=== PATIENT | female | born 1985 | race Caucasian/White ===

== ENCOUNTER 2025-06-24 17:26 | Inpatient (IN) | payer OTHER, SELFPAY ==
[2025-06-24 17:41] VITALS: BP 172/80; PULSE 85; RESP 18; TEMP 36.3; O2SAT 97; BMI 20.6
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
--- NOTE | 2025-06-24 18:09 | MHC.EDTECH ---
Pt is wearing her own underwear due to menstrual cycle. It was inspected for safety. Pod RN Sissy mcdonald.
[2025-06-24 18:42] LABS: MANUAL DIFF FLAG NO
[2025-06-24 18:44] LABS: Hematocrit 35.6 % (37.0-47.0); Hemoglobin 11.5 g/dl (12.0-16.0); Imm Gran Abs Auto 0.06 X10*3/uL (0.00-0.03); Imm Gran Pct Auto 0.4 % (0.0-0.4); Lymphocytes Absolute Auto 2.7 X10*3/uL (1.2-4.9); Mean Corpuscular HGB Conc 32.3 g/dl (31.0-35.0); Mean Corpuscular Hemoglobin 28.9 pg (27.0-33.0); Mean Corpuscular Volume 89.4 fL (80.0-98.0); NRBC Abs Auto 0.000 X10*3/uL (0.0-0.012); NRBC Pct Auto 0.0 /100WBC (0.0-0.2); Platelet Count 325 X10*3/uL (160-400); Red Blood Count 3.98 X10*6/uL (4.20-5.50); White Blood Count 13.4 X10*3/uL (4.8-10.8)
[2025-06-24 18:45] VITALS: BP 127/77; PULSE 90; RESP 20; TEMP 37.3; O2SAT 100
[2025-06-24 18:59] LABS: Acetaminophen LAB < 3 mcg/mL (<30); Alanine Aminotransferase 28 U/L (0-31); Albumin Level 4.9 g/dL (3.5-5.0); Alkaline Phosphatase 45 U/L (39-117); Anion Gap 14 (12-20); Aspartate Amino Transferase 35 U/L (5-31); Blood Urea Nitrogen 11 mg/dL (9-16); Calcium 9.5 mg/dL (8.4-10.2); Carbon Dioxide 25 mmol/L (22-29); Chloride 103 mmol/L (96-108); Creatinine Clr Calc Pharmacy 68.7; Estimated Glomerular Filt Rate > 60; Potassium 3.5 mmol/L (3.3-5.1); Salicylate < 5.0 mg/dL (15-30); Sodium 138 mmol/L (135-145); Total Protein 7.1 g/dL (6.5-8.0)
[2025-06-24 19:00] LABS: COVID-19 Test Negative (Negative); IDNOW Serial# 55D5AD1C
[2025-06-24 20:10] LABS: Thyroid Stimulating Hormone 1.96 uIU/mL (0.32-4.0)
--- NOTE | 2025-06-25 | ECG_ITS ---
Test Reason : check qtc Blood Pressure : */* mmHG Vent. Rate : 72 BPM Atrial Rate : 72 BPM P-R Int : 154 ms QRS Dur : 82 ms QT Int : 414 ms P-R-T Axes : 81 65 56 degrees QTcB Int : 453 ms Sinus rhythm with marked sinus arrhythmia Otherwise normal ECG No previous ECGs available Referred By: Chase Boyd Electronically Signed By: Uday Pepe
[2025-06-25] MEDS: OLANZapine 10 MG VIAL 2.5 MG IM (00:02)
[2025-06-25 00:40] VITALS: BP 94/56; PULSE 74; RESP 16; TEMP 36.3; O2SAT 98
[2025-06-25 01:10] VITALS: BP 93/60; PULSE 90; RESP 16; TEMP 36.3; O2SAT 100
[2025-06-25] MEDS: Lidocaine 4 % Patch ADH..PATCH 1 PATCH TRANSDERMA (02:44)
--- NOTE | 2025-06-25 03:23 | PC.NURSE ---
Assumed care at 1845. Presents as anxious and paranoid with delusional thinking. Speech is pressured and tangential at times. Refused HS scheduled medications when offered and stated I'm not here for meds. Endorsed 05/28 chronic back pain, MD Boyd made aware, order for Lidocaine and Motrin obtained. Patient refused PRN pain medications when offered. Later requested PRN Motrin with fair effect. Patient continues to preseverate on discharging home. Behavior began to escalate, not following redirection from staff and becoming disruptive to other peers on the unit. MD Boyd made aware, who spent time on unit attempting to de-escalate. Patient presented as calm and cooperative, but once MD Boyd left, behavior once again began to escalate. MD Boyd made aware of behavior, plan to IM initiated after non-pharmeceutical de-escalation techniques were exhausted. Received 4mg Versed IM & 2.5 Zyprexa IM with good effect. Patient woke up approx 0200 and requested 4% Lidocaine patch for lower back pain. Remains in behavioral control. Pending UA collection, t/w will re-attempt in morning. 15 minute safety checks ongoing. Plan of care ongoing...
[2025-06-25] MEDS: buPROPion HCl XL 300 MG TAB.ER.24H PO (07:18)
--- NOTE | 2025-06-25 07:52 | PC.NURSE ---
Assumed care of patient at 0645, patient appears paranoid this am, frequently looking around the pod as if she is searching for something. initially hesitant to take her home medications but was willing to take them after speaking with SHREYA Price as she feels she can trust her. Per previous RN, patient can be intrusive at times, having poor boundaries with peers. Continue plan of care for psych consult
--- NOTE | 2025-06-25 08:12 | MHC.CARE ---
Psych consult cancelled. Pt will now be adut iploc. Section 12a in chart. ED provider in agreement.
[2025-06-25 08:38] LABS: Appearance Urine Clear; Glucose Urine UA Negative (Negative); PH 6.5 (5.0-9.0); Specific Gravity - Urine 1.010 (1.005-1.025); UMIC TRIGGER UA YES
[2025-06-25 08:43] LABS: UPreg QC Valid YES
[2025-06-25 08:48] LABS: Cannabinoid Screen Urine POSITIVE (Not Detect)
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
--- NOTE | 2025-06-25 13:49 | PHA.MEDREC ---
Addendum entered by Garrett Luz, PharmSunny 06/25/25 15:19: MED REC CHECKED BY [facility] Original Note: Pharmacy Consult ? Medication Reconciliation Pharmacy reviewed med rec done by nursing. Nursing had confirmed Non Formulary drugs on med list. Spoke with pt and she verified her medications; verified med list utilizing claims and updated drugs from Non-Formulary to Formulary.
[2025-06-25 15:02] VITALS: BP 133/92; PULSE 82; RESP 18; TEMP 37; O2SAT 100
[2025-06-25 15:12] VITALS: BMI 20.4
--- NOTE | 2025-06-25 15:54 | PC.ADMIT ---
Daphne is a 40yo female admitted with Bi-polar II and increased paranoia.? No PMH noted.? She became very emotional during meeting with provider and did not want to sign CV at this time, she is being admitted on a 12a/b.? She presents as guarded, anxious, tearful, and sad. She rates anxiety at a 5, she denies depression, SI, HI, and AVH.? She lives at home with her and children and states she feels like she ?should be there with her kids? and that ?she wanted to go home last night but he was there?. She reports she does not feel safe at home because of ?family problems?.? TIMOTHY?s were signed. ? Skin and safety check completed.? She was oriented to unit and instructed on telephone usage and visitor policy.
[2025-06-25 20:00] VITALS: BP 111/71; PULSE 74; TEMP 36.8; O2SAT 100
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
[2025-06-26 08:00] VITALS: BP 125/77; PULSE 87; RESP 18; TEMP 36.9; O2SAT 100
[2025-06-26] MEDS: Lidocaine 4 % Patch ADH..PATCH 1 PATCH TRANSDERMA (16:25)
--- NOTE | 2025-06-27 07:58 | P.PNPSI_ITS ---
Subjective Subjective Date of Service: 06/27/25 Reason For Visit: Recurrent major depression with psychosis Interim History: Patient has presented with staff today as less paranoid and guarded. Did mention tingling over body with restarting medications i.e. now accepting same. Also requesting prazosin 2mg be restarted, but is sleeping ok. 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 Medication Compliance: Yes Side effects from medications: No Attending Groups: Intermittent Review of Systems Acute medical concerns: No Review of Systems Review of Systems Nothing acute Mental Status Exam Mental Status Exam Narrative: Casually dressed. Fair self-care. Organized. Is less guarded and suspicious. Denies depression. No SI. No HI. Denies hallucinations. Insight and judgment does appear limited Diagnostics Vital Signs (24Hr): Vital Signs - 24 hr 06/26/25 08:00 Temperature 98.4 F Pulse Rate 87 Respiratory Rate 18 Blood Pressure 125/77 Pulse Oximetry 100 Oxygen Delivery Method Room Air BMI result Body Mass Index 20.4 Labs 06/24/25 18:27 06/24/25 18:27 Labs: Laboratory Results - last 48 hr 06/25/25 08:20 Urine Color Yellow Urine Appearance Clear Urine pH 6.5 Ur Specific [place] 1.010 Urine Protein Negative Urine Glucose (UA) Negative Urine Ketones Negative Urine Blood Moderate (2+) H Urine Nitrite Negative Ur Leukocyte Esterase Negative Urine RBC 0-2 Urine WBC 0-5 Ur Squamous Epith Cells 0-2 Urine Bacteria None Seen Hyaline Casts 0-2 Urine Test NEGATIVE Urine Opiates Screen Not Detected Ur Buprenorphine Scrn Not Detected Ur Oxycodone Screen Not Detected Urine Methadone Screen Not Detected Urine Fentanyl Screen Not Detected Ur Barbiturates Screen Not Detected Ur Phencyclidine Scrn Not Detected Ur Amphetamines Screen POSITIVE H U Benzodiazepines Scrn POSITIVE H Urine Cocaine Screen Not Detected U Marijuana (THC) Screen POSITIVE H Medications Medications Current Medications Acetaminophen (Acetaminophen 325 Mg Tablet) 650 mg PO Q6H PRN PRN Reason: Headache/Pain, Scale 1-10 Last Admin: 06/27/25 02:05 Dose: 650 mg Al Hydroxide/Mg Hydroxide (Magnesium Hydrox/Alum Hydrox 30 Ml Oral.Susp) 30 ml PO Q6H PRN PRN Reason: Heartburn/Nausea Bupropion HCl (Bupropion Hcl Xl 300 Mg Tab.Er.24h) 300 mg PO DAILY [facility] Last Admin: 06/26/25 08:54 Dose: Not Given Buspirone HCl (Buspirone Hcl 5 Mg Tablet) 15 mg PO BID [facility] Last Admin: 06/26/25 21:58 Dose: 15 mg Escitalopram Oxalate (Escitalopram Oxalate 10 Mg Tablet) 10 mg PO DAILY [facility] Last Admin: 06/26/25 08:55 Dose: Not Given Hydroxyzine HCl (Hydroxyzine Hcl 25 Mg Tablet) 25 mg PO Q6H PRN PRN Reason: mild anxiety Lamotrigine (Lamotrigine 25 Mg Tablet) 50 mg PO BEDTIME [facility] Last Admin: 06/26/25 21:58 Dose: 50 mg Levothyroxine Sodium (Levothyroxine Sodium 75 Mcg Tablet) 75 mcg PO DAILY@0600 [facility] Last Admin: 06/27/25 06:19 Dose: 75 mcg Lidocaine (Lidocaine 4 % Patch Adh..Patch) 1 patch TRANSDERMA DAILY [facility]; Protocol Last Admin: 06/26/25 16:25 Dose: 1 patch Lorazepam (Lorazepam 1 Mg Tablet) 1 mg PO Q4H PRN PRN Reason: anxiety, agitation Last Admin: 06/26/25 11:55 Dose: 1 mg Magnesium Hydroxide (Milk Of Magnesia 30 Ml Oral.Susp) 30 ml PO DAILY PRN PRN Reason: Constipation Multivitamins/Vitamin C (Multivitamin Tablet) 1 tab PO DAILY [facility] Last Admin: 06/26/25 08:55 Dose: Not Given Nicotine Polacrilex (Nicotine Polacrilex 2 Mg Gum) 4 mg BUCCAL Q2H PRN PRN Reason: Nicotine Cravings Pt Own ( Lisdexamfetamine 70 Mg) 70 mg PO DAILY [facility] Last Admin: 06/26/25 11:51 Dose: 70 mg Olanzapine (Olanzapine 5 Mg Tablet) 5 mg PO Q4H PRN PRN Reason: agitation, psychosis Quetiapine Fumarate (Quetiapine Fumarate 100 Mg Tablet) 100 mg PO BEDTIME [facility] Last Admin: 06/26/25 21:57 Dose: 100 mg Trazodone HCl (Trazodone Hcl 50 Mg Tablet) 50 mg PO BEDTIME MRX1 PRN PRN Reason: Insomnia Allergies Allergies Allergy/AdvReac Type Severity Reaction Status Date / Time No Known Allergies Allergy Verified 06/24/25 17:49 Assessment & Plan Assessment & Plan (1) Acute psychosis: Status: Acute Code(s): F23 - Brief psychotic disorder (2) Depression: Status: Acute Code(s): F32.A - Depression, unspecified Plan HPI: Pt is a 40 year old female who presented to the ED after being dropped off by a friend . Upon arrival to the ED she appeared increasingly paranoid and indicated that she was fearful she was being drugged by her and voiced concern for her and her children's safety. Pt stated that she wanted to have her medications checked as things are just off, my daily routine is off . Pt provided inconsistent information as evidence by conflicting information from what she disclosed to the ED provider upon arrival and at times appears to be a poor historian as a result of her current presentation. She remained guarded at this time and at times appeared to be minimizing symptoms as well as medication seeking as she remained primarily focused on her controlled substances that she is currently prescribed. It is to be noted. Formulation/clinical reasoning: Increasing psychotic behaviors, paranoid, disorganized thought process. Family members have safety concern regarding patient mental status at this current time. Even the above information, patient will be benefit in restrictive environment, medication management, and refer patient back to outpatient psychiatric services. Hospital course: 06/25/25: Continue with home medications. In my impression, patient may think that she just come here to get refill of her medication and will be sent home. However, other time she also stating that she has not come here for medication change as if she needs a refilled she can get it feel from her OP provider. Ativan 1 mg q.4 hours p.r.n. for severe anxiety. Home dose was only 0.5 b.i.d. p.r.n.. Stimulants: Continue with stimulants, we will monitor if it causing more psychotic behavior. Questioned if patient overused her Adderall information regarding recent weight lost, and be psychotic. Lexapro 10mg daily Zyprexa 5mg q.4 hours p.r.n. for agitation/psychosis Seroquel 100 at bedtime. Lamictal 50 mg at bedtime. BuSpar 15 mg twice a day. Wellbutrin 300 mg daily: will monitor for psychosis. Plan Patient on 15 minute checks for safety. Admitted to M5. section 12B. Work with treatment team to do collateral 06/26/2025: Continue to encourage medication adherence and engagement. 06/27: accepting medications and requested prazosin 2mg be restarted Reason for continued inpatient stay Substantial Risk for: inability to function Time Spent With Patient Time: Total time managing care of this patient today ____ minutes.
[2025-06-27 08:00] VITALS: BP 113/78; PULSE 77; RESP 18; TEMP 37.7; O2SAT 77
[2025-06-27 08:45] LABS: Cholesterol 155 mg/dL (<200); HDL Cholesterol 62 mg/dL (>40); Magnesium 2.2 mg/dL (1.6-2.6); Triglycerides 80 mg/dL (<150)
[2025-06-27 08:59] LABS: Free T4 (Free Thyroxine) 1.18 ng/dL (0.71-1.85)
[2025-06-27] MEDS: Lidocaine 4 % Patch ADH..PATCH 1 PATCH TRANSDERMA (09:09)
[2025-06-27] MEDS: buPROPion HCl XL 300 MG TAB.ER.24H PO (09:10)
[2025-06-27 09:13] LABS: Folate 11.4 ng/mL (> or = 4.0); Vitamin B12 793 pg/mL (200-900)
[2025-06-27 20:00] VITALS: BP 149/84; PULSE 88; RESP 16; TEMP 36.6; O2SAT 98
[2025-06-28 08:00] VITALS: BP 116/74; PULSE 118; RESP 20; TEMP 36.2; O2SAT 100
[2025-06-28] MEDS: buPROPion HCl XL 300 MG TAB.ER.24H PO (08:11)
[2025-06-28] MEDS: Lidocaine 4 % Patch ADH..PATCH 1 PATCH TRANSDERMA (08:12)
--- NOTE | 2025-06-28 08:37 | P.CONHOSP_ITS ---
History of Present Illness Data of Consult Service Date: 06/29/25 Primary Care Provider: None Physician HPI Reason for consult: Medical H&P 40-year-old female with a past medical history of bipolar 2 disorder, cocaine use disorder, over taking her prescribed medications anxiety, depression, and PTSD presented to the ED with paranoia and delusional thinking She was dropped off by a friend to the ED where she was paranoid and fearful. Information patient presented was inconsistent. She was medically cleared and now admitted on the inpatient psychiatric unit for further stabilization. CBC revealed mild leukocytosis, mild anemia. Very mild elevation in AST, ALT and alk-phos within normal limits. Cholesterol levels within normal limits. TSH within normal limits. On exam patient is tearful, reports having a panic attack. She otherwise feels fine physically. Denies any acute medical concerns. Review of Systems 2 Review of Systems: Denies any shortness of breath, chest pain, headaches, dysuria, abdominal pain or discomfort, nausea, vomiting or diarrhea. Denies fever or chills. PMFSH Social History Household Members: Spouse and Children Housing: House Do you presently have visiting nurse or other home services: No Unable to assess alcohol history related to: Refusing to respond Patient Tobacco Use Status: Never used Tobacco Smoked in Last 30 Days: No e-Cigarette/Vaping Use: Never Used Patient Interested in Nicotine Replacement: No Patient Given Instructions on How to Stop Smoking: No Second Hand Smoke Exposure: No Use of substances other than those prescribed or required for medical reasons: Refusing to respond Currently Displaying Signs/Symptoms of Drug Intoxication Withdrawal: No Have you been hit, kicked, punched, or otherwise hurt by someone within the past year? If so, by whom?: No Do you feel safe in your current relationship?: Yes Is there a partner from a previous relationship who is making you feel unsafe now?: No Are you made to feel afraid or neglected: Yes Advance Directives: No Advance Directives Information Provided: No Do you have thoughts of harming others: None Do you have a plan to hurt others: No Plan Recently lost weight without trying: No How much weight loss: Not applicable Eating poorly because of decreased appetite: No Nutrition screen score: 0 Nutrition Risks: No Nutritional Risk Patient : No : No Poor oral hygiene: No service: No Sexual orientation: Something else, please describe Meds Allergies Allergy/AdvReac Type Severity Reaction Status Date / Time No Known Allergies Allergy Verified 06/24/25 17:49 Active Medications: Current Medications Acetaminophen (Acetaminophen 325 Mg Tablet) 650 mg PO Q6H PRN PRN Reason: Headache/Pain, Scale 1-10 Last Admin: 06/27/25 13:13 Dose: 650 mg Al Hydroxide/Mg Hydroxide (Magnesium Hydrox/Alum Hydrox 30 Ml Oral.Susp) 30 ml PO Q6H PRN PRN Reason: Heartburn/Nausea Bupropion HCl (Bupropion Hcl Xl 300 Mg Tab.Er.24h) 300 mg PO DAILY [facility] Last Admin: 06/28/25 08:11 Dose: 300 mg Buspirone HCl (Buspirone Hcl 5 Mg Tablet) 15 mg PO BID [facility] Last Admin: 06/28/25 08:12 Dose: 15 mg Escitalopram Oxalate (Escitalopram Oxalate 10 Mg Tablet) 10 mg PO DAILY [facility] Last Admin: 06/28/25 08:12 Dose: 10 mg Hydroxyzine HCl (Hydroxyzine Hcl 25 Mg Tablet) 25 mg PO Q6H PRN PRN Reason: mild anxiety Ibuprofen (Ibuprofen 600 Mg Tablet) 600 mg PO Q6H PRN PRN Reason: Pain, Severe (Pain Scale 7-10) Last Admin: 06/28/25 01:29 Dose: 600 mg Lamotrigine (Lamotrigine 25 Mg Tablet) 50 mg PO BEDTIME [facility] Last Admin: 06/28/25 01:29 Dose: 50 mg Levothyroxine Sodium (Levothyroxine Sodium 75 Mcg Tablet) 75 mcg PO DAILY@0600 [facility] Last Admin: 06/28/25 06:48 Dose: 75 mcg Lidocaine (Lidocaine 4 % Patch Adh..Patch) 1 patch TRANSDERMA DAILY [facility]; Protocol Last Admin: 06/28/25 08:12 Dose: 1 patch Lorazepam (Lorazepam 1 Mg Tablet) 1 mg PO Q4H PRN PRN Reason: anxiety, agitation Last Admin: 06/27/25 13:13 Dose: 1 mg Magnesium Hydroxide (Milk Of Magnesia 30 Ml Oral.Susp) 30 ml PO DAILY PRN PRN Reason: Constipation Multivitamins/Vitamin C (Multivitamin Tablet) 1 tab PO DAILY [facility] Last Admin: 06/28/25 08:12 Dose: 1 tab Nicotine Polacrilex (Nicotine Polacrilex 2 Mg Gum) 4 mg BUCCAL Q2H PRN PRN Reason: Nicotine Cravings Pt Own ( Lisdexamfetamine 70 Mg) 70 mg PO DAILY [facility] Last Admin: 06/27/25 09:09 Dose: 70 mg Olanzapine (Olanzapine 5 Mg Tablet) 5 mg PO Q4H PRN PRN Reason: agitation, psychosis Prazosin HCl (Prazosin Hcl 1 Mg Capsule) 2 mg PO BEDTIME [facility]; Protocol Last Admin: 06/28/25 01:29 Dose: 2 mg Quetiapine Fumarate (Quetiapine Fumarate 100 Mg Tablet) 100 mg PO BEDTIME [facility] Last Admin: 06/28/25 01:28 Dose: 100 mg Trazodone HCl (Trazodone Hcl 50 Mg Tablet) 50 mg PO BEDTIME MRX1 PRN PRN Reason: Insomnia Home Medications ?Medication ?Instructions ?Recorded ?Confirmed ?Last Taken ?Type bupropion HCl 300 mg 24 hr tablet, 300 mg PO QAM 06/2506/25/25 06/24/25 History extended release buspirone 15 mg tablet 15 mg PO BID 06/25/2506/24/25 History dextroamphetamine-amphetamine 5 mg 1 tab PO DAILY 03/1206/25/25 06/24/25 History tablet escitalopram oxalate 10 mg tablet 10 mg PO DAILY 06/2506/25/25 06/24/25 History lamotrigine 25 mg tablet 50 mg PO BEDTIME 06/25/2506/24/25 History levothyroxine 75 mcg tablet 75 mcg PO DAILY@0600 06/2506/25/25 06/24/25 History lisdexamfetamine 70 mg capsule 70 mg PO DAILY 06/25/25 06/25/25 06/24/25 History lorazepam 0.5 mg tablet 0.5 mg PO BID PRN Anxiety 06/25/25 06/24/25 History multivitamin 1 tab PO DAILY 06/25/2503/1206/24/25 History oxycodone-acetaminophen 5 mg-325 1 tab PO BID PRN zack re pain 06/25/25 06/25/25 06/24/25 History mg tablet quetiapine 100 mg tablet 100 mg PO BEDTIME 06/25/25 1 08/25/24 06/24/25 History Physical Exam 2 Vital Signs and Narrative: Vital Signs: Last Vital Signs Temp 97.9 F 06/27/25 20:00 Pulse 88 06/27/25 20:00 Resp 16 06/27/25 20:00 BP 149/84 H 06/27/25 20:00 Pulse Ox 98 06/27/25 20:00 O2 Del Method Room Air 06/27/25 20:00 BMI result Body Mass Index 20.4 Alert and oriented X3, able to give good history. Weepy at times. Neuro: CN II-X11 intact, no deficits, visual acuity intact EYES: PERRLA, EOM intact ENT: Hearing intact, lips moist Cardiac: S1 S2 RRR, No ectopy Pulmonary: lungs clear to auscultation, No increased WOB. Abdominal: BS active in all 4 quadrants, no guarding or tenderness MSK: Strength 5/5 upper and lower extremities : Deferred Extremities: No edema in lower extremities. Psych: Weepy, shaky. Skin: Warm and dry, Intact Results Labs 06/24/25 18:27 06/24/25 18:27 Labs: Laboratory Results - last 24 hr 06/27/25 08:10 Estimat Average Glucose 100 Hemoglobin A1c % 5.1 Magnesium 2.2 Triglycerides 80 Cholesterol 155 LDL Cholesterol, Calc 77 HDL Cholesterol 62 Vitamin B12 793 Folate 11.4 Free T4 1.18 Assessment and Plan (1) Paranoid ideation: Status: Acute Plan 40-year-old female with past medical history listed below presented to the ED with delusions and paranoia. Now admitted for stabilization Bipolar 2 disorder/Cocaine use disorder/Anxiety/Depression/PTSD/chronic overuse of medications Treatment per psychiatric team Thank you for allowing me to participate in the care of this patient. Will follow with you, please notify medical provider with any changes in condition or concerns.
--- NOTE | 2025-06-28 09:39 | P.PNPSI_ITS ---
Subjective Subjective Date of Service: 06/28/25 Reason For Visit: Recurrent major depression with psychosis Subjective Notes: Mitchell Warning (06/28/25) and Section 12B Interim History: met with pt; discussed with team; reviewed chart Patient is a limited historian due to disorganized speech and behavior. Throughout interview patient looking off in the distance, sometimes very latent responses, appearing to be internally preoccupied; frequently not finishing sentences, giving cryptic, vague and frequently unrelated responses to discussion questions. Horseradish Grinder introduces himself has a doctor... Patient then asks are you a Dr.? I am not a doctor. I am Daphne... On inquiry about why patient came to the hospital, she replies, with speech latency and in broken sentences I came... I wanted medications reviewed... And wanted a toxicology... The unknown.... Things got a little unhinged... The court room... Domestic stuff. Patient goes on I was looking for my medications at my house... Interviews, talking, trying to survive all the time... The reality of things is unclear to me... Of the events. Horseradish Grinder asks for clarification to which patient says, again after significant latency, the court house... I just want my [place] back... (she later clarifies that the Garrett is a multi tool knife). Patient then started to refer to another patient, saying he wants a tape measure... I have one... I can hang out... There is time and things will be revealed... Whenever thing comes together... Family and judges and worldly stuff.. Horseradish Grinder asks about her earlier concern that her is poisoning her... Patient remained silent for awhile and then says I checked my meds... When I went to talk to them... I would like to see the toxicology... My back was sweating.. I was questioning reality generally... There was a 911 call... She then told development writer she questioned the reality of this conversation but could not clarify further but then some something about getting her red ticket.. On further inquiry, regarding how she got to the hospital, patient said officers came to my house and talked to my kids...my daughter called them...since i was not feeling safe.....i know my very well...it just wasnt a good think going on...i wasn't...no...it got real.....im in survival mode...it started getting scary and dangerous...my was getting a little...red flaggs...it started to be an unsafe situation..he [] was not himself... denies drugs or taking her prescribed medications in excess denies hx manic episodes; yes AH but nothing to be alarmed about... daughter 14 Son 11 06/25/25 09:54 - Nurse Note by Karno Arora RN Acct Num: [id number] : 1985 Patient Age: 40 This RN spoke to [facility] regarding the situation that led to being present here in the ER. Per [facility] employee, yesterday there was an argument between the patient and her where both her and her received a crisis consult. Per [facility] employee, patient was originally seen by [facility] crisis and it was determined she could go to respite, however, shortly after, crisis was called back to the home and the patient was sent here to the hospital. When the [facility] employee interviewed the pts 14 year old son, he reports that his mom has been acting really paranoid about things as of recently Mental Status Exam Mental Status Exam Narrative: Pt is alert and oriented; behavior is disorganized in speech and behavior, looking around the room, staring at different objects, not talking or making unrelated comments; saying odd things to peers; patient is not in distress; dressed in casual attire with adequate hygiene; mood is described as good and affect odd, staring; eye contact odd, sometimes staring, sometimes looking away; Speech is normal rate, volume and prosody and not pressured; no psychomotor agitation/retardation present; thought process can be goal directed, but is distracted by internal preoccupation disorganized; Thought content is on paranoid ideations;; denies any SI/HI. Positive AH and patient internally preoccupied and responding to internal stimuli. Patients insight and judgment impaired Diagnostics Vital Signs (24Hr): Vital Signs - 24 hr 06/27/25 20:00 Temperature 97.9 F Pulse Rate 88 Respiratory Rate 16 Blood Pressure 149/84 H Pulse Oximetry 98 Oxygen Delivery Method Room Air BMI result Body Mass Index 20.4 Labs 06/24/25 18:27 06/24/25 18:27 Labs: Laboratory Results - last 48 hr 06/27/25 08:10 Estimat Average Glucose 100 Hemoglobin A1c % 5.1 Magnesium 2.2 Triglycerides 80 Cholesterol 155 LDL Cholesterol, Calc 77 HDL Cholesterol 62 Vitamin B12 793 Folate 11.4 Free T4 1.18 Medications Medications Current Medications Acetaminophen (Acetaminophen 325 Mg Tablet) 650 mg PO Q6H PRN PRN Reason: Headache/Pain, Scale 1-10 Last Admin: 06/27/25 13:13 Dose: 650 mg Al Hydroxide/Mg Hydroxide (Magnesium Hydrox/Alum Hydrox 30 Ml Oral.Susp) 30 ml PO Q6H PRN PRN Reason: Heartburn/Nausea Bupropion HCl (Bupropion Hcl Xl 300 Mg Tab.Er.24h) 300 mg PO DAILY [facility] Last Admin: 06/28/25 08:11 Dose: 300 mg Buspirone HCl (Buspirone Hcl 5 Mg Tablet) 15 mg PO BID [facility] Last Admin: 06/28/25 08:12 Dose: 15 mg Escitalopram Oxalate (Escitalopram Oxalate 10 Mg Tablet) 10 mg PO DAILY [facility] Last Admin: 06/28/25 08:12 Dose: 10 mg Hydroxyzine HCl (Hydroxyzine Hcl 25 Mg Tablet) 25 mg PO Q6H PRN PRN Reason: mild anxiety Ibuprofen (Ibuprofen 600 Mg Tablet) 600 mg PO Q6H PRN PRN Reason: Pain, Severe (Pain Scale 7-10) Last Admin: 06/28/25 09:03 Dose: 600 mg Lamotrigine (Lamotrigine 25 Mg Tablet) 50 mg PO BEDTIME [facility] Last Admin: 06/28/25 01:29 Dose: 50 mg Levothyroxine Sodium (Levothyroxine Sodium 75 Mcg Tablet) 75 mcg PO DAILY@0600 [facility] Last Admin: 06/28/25 06:48 Dose: 75 mcg Lidocaine (Lidocaine 4 % Patch Adh..Patch) 1 patch TRANSDERMA DAILY [facility]; Protocol Last Admin: 06/28/25 08:12 Dose: 1 patch Lorazepam (Lorazepam 1 Mg Tablet) 1 mg PO Q4H PRN PRN Reason: anxiety, agitation Last Admin: 06/27/25 13:13 Dose: 1 mg Magnesium Hydroxide (Milk Of Magnesia 30 Ml Oral.Susp) 30 ml PO DAILY PRN PRN Reason: Constipation Multivitamins/Vitamin C (Multivitamin Tablet) 1 tab PO DAILY RATNA Last Admin: 06/28/25 08:12 Dose: 1 tab Nicotine Polacrilex (Nicotine Polacrilex 2 Mg Gum) 4 mg BUCCAL Q2H PRN PRN Reason: Nicotine Cravings Pt Own ( Lisdexamfetamine 70 Mg) 70 mg PO DAILY RATNA Last Admin: 06/28/25 09:02 Dose: 70 mg Olanzapine (Olanzapine 5 Mg Tablet) 5 mg PO Q4H PRN PRN Reason: agitation, psychosis Prazosin HCl (Prazosin Hcl 1 Mg Capsule) 2 mg PO BEDTIME RATNA; Protocol Last Admin: 06/28/25 01:29 Dose: 2 mg Quetiapine Fumarate (Quetiapine Fumarate 100 Mg Tablet) 100 mg PO BEDTIME RATNA Last Admin: 06/28/25 01:28 Dose: 100 mg Trazodone HCl (Trazodone Hcl 50 Mg Tablet) 50 mg PO BEDTIME MRX1 PRN PRN Reason: Insomnia Allergies Allergies Allergy/AdvReac Type Severity Reaction Status Date / Time No Known Allergies Allergy Verified 06/24/25 17:49 Assessment & Plan Assessment & Plan (1) Acute psychosis: Status: Acute Code(s): F23 - Brief psychotic disorder (2) Depression: Status: Acute Code(s): F32.A - Depression, unspecified Plan HPI: Pt is a 40 year old female who presented to the ED after being dropped off by a friend . Upon arrival to the ED she appeared increasingly paranoid and indicated that she was fearful she was being drugged by her and voiced concern for her and her children's safety. Pt stated that she wanted to have her medications checked as things are just off, my daily routine is off . Pt provided inconsistent information as evidence by conflicting information from what she disclosed to the ED provider upon arrival and at times appears to be a poor historian as a result of her current presentation. She remained guarded at this time and at times appeared to be minimizing symptoms as well as medication seeking as she remained primarily focused on her controlled substances that she is currently prescribed. It is to be noted. Formulation/clinical reasoning: Increasing psychotic behaviors, paranoid, disorganized thought process. Family members have safety concern regarding patient mental status at this current time. Even the above information, patient will be benefit in restrictive environment, medication management, and refer patient back to outpatient psychiatric services. Hospital course: 06/25/25: Continue with home medications. In my impression, patient may think that she just come here to get refill of her medication and will be sent home. However, other time she also stating that she has not come here for medication change as if she needs a refilled she can get it feel from her OP provider. Ativan 1 mg q.4 hours p.r.n. for severe anxiety. Home dose was only 0.5 b.i.d. p.r.n.. Stimulants: Continue with stimulants, we will monitor if it causing more psychotic behavior. Questioned if patient overused her Adderall information regarding recent weight lost, and be psychotic. 06/26/2025: Continue to encourage medication adherence and engagement. 06/27: accepting medications and requested prazosin 2mg be restarted 06/28 Patient is a limited historian due to disorganized speech and behavior. Throughout interview patient looking off in the distance, sometimes very latent responses, appearing to be internally preoccupied; frequently not finishing sentences, giving cryptic, vague and frequently unrelated responses to discussion questions. Horseradish Grinder introduces himself has a doctor... Patient then asks are you a Dr.? I am not a doctor. I am Daphne... On inquiry about why patient came to the hospital, she replies, with speech latency and in broken sentences I came... I wanted medications reviewed... And wanted a toxicology... The unknown.... Things got a little unhinged... The court room... Domestic stuff. Patient goes on I was looking for my medications at my house... Interviews, talking, trying to survive all the time... The reality of things is unclear to me... Of the events. Horseradish Grinder asks for clarification to which patient says, again after significant latency, the court house... I just want my [place] back... (she later clarifies that the Garrett is a multi tool knife). Patient then started to refer to another patient, saying he wants a tape measure... I have one... I can hang out... There is time and things will be revealed... Whenever thing comes together... Family and judges and worldly stuff.. Horseradish Grinder asks about her earlier concern that her is poisoning her... Patient remained silent for awhile and then says I checked my meds... When I went to talk to them... I would like to see the toxicology... My back was sweating.. I was questioning reality generally... There was a 911 call... She then told development writer she questioned the reality of this conversation but could not clarify further but then some something about getting her red ticket.. Regarding how she got to the hospital, patient said officers came to my house and talked to my kids...my daughter called them...since i was not feeling safe.....i know my very well...it just wasnt a good think going on...i wasn't...no...it got real.....im in survival mode...it started getting scary and dangerous...my was getting a little...red flaggs...it started to be an unsafe situation..he [] was not himself... Patient also said that her best friend Stephanie Holder dropped her off at the hospital; not clear how she got here. Patient gave development writer permission to talk to Stephanie and also to collect information from her . denies drugs or taking her prescribed medications in excess denies hx manic episodes; yes AH but nothing to be alarmed about... Nurse Note by Karon Arora RN 06/25/25 09:54 - This RN spoke to [facility] regarding the situation that led to being present here in the ER. Per [facility] employee, yesterday there was an argument between the patient and her where both her and her received a crisis consult. Per [facility] employee, patient was originally seen by [facility] crisis and it was determined she could go to respite, however, shortly after, crisis was called back to the home and the patient was sent here to the hospital. When the [facility] employee interviewed the pts 14 year old son, he reports that his mom has been acting really paranoid about things as of recently. (daughter 14yo, Son 11yo) IMPRESSION: Patient demonstrating psychotic symptoms, auditory hallucinations, paranoid delusions and disorganized speech and behavior; patient is certainly internally preoccupied. So far collateral reports that patient has no history of psychosis or bipolar disorder. Some reference to possible substance induced.... Need more collateral. Plan 12 B q15 Lexapro 10mg daily Zyprexa 5mg q.4 hours p.r.n. for agitation/psychosis Seroquel 100 at bedtime. Lamictal 50 mg at bedtime. BuSpar 15 mg twice a day. Wellbutrin 300 mg daily: will monitor for psychosis. Work with treatment team to do collateral Patient educated on: diagnosis, medication risk/benefits, substance abuse and therapeutic strategies Informed Consent: does not understand Reason for continued inpatient stay Substantial Risk for: inability to function Time Spent With Patient Time: Total time managing care of this patient today ____ minutes.
[2025-06-28 20:00] VITALS: BP 150/88; PULSE 74; RESP 16; TEMP 36.3; O2SAT 100
[2025-06-28 23:05] VITALS: BP 150/88
[2025-06-29 08:00] VITALS: PULSE 100; RESP 20; TEMP 36.4; O2SAT 100
[2025-06-29] MEDS: buPROPion HCl XL 300 MG TAB.ER.24H PO (09:00)
[2025-06-29] MEDS: Lidocaine 4 % Patch ADH..PATCH 1 PATCH TRANSDERMA (09:02)
--- NOTE | 2025-06-29 11:26 | HO.PSYCHPN ---
Subjective Subjective Date of Service: 06/29/25 Reason For Visit: Recurrent major depression with psychosis Interim History: Met with patient; discussed with team Patient remains with psychotic symptoms and said she thinks maybe he[] wants to kill or hurt me... Floor Polisher inquired and patient kept coming back to the fact that he put her home medications in the wrong pill box compartments... and this is what made her think he is trying to kill her... Patient however was willing to entertain that perhaps this might not be true. However, she is significantly more organized today than she was yesterday, talking in full sentences sticking to the topic at hand. She agrees that yesterday she was feeling much more confused she is thinking more clearly today. Patient's father present who has been meeting with her daily since this admission and who agrees that she is significantly better and headed back towards her regular self. Patient agreed to sign a CV and also agreed to have Vyvanse and bupropion discontinued for now; she also agreed to take risperidone which bond underwriter explained was hopefully just for few days. Mental Status Exam Mental Status Exam Narrative: Pt is alert and oriented; behavior is cooperative, friendly and calm; overall much more organized; patient is not in distress; dressed in casual attire with adequate hygiene and grooming; mood is described as ok and affect congruent; eye contact appropriate; Speech is normal rate, volume and prosody and not pressured; no psychomotor agitation/retardation present; thought process is still a little distracted but overall more organized and linear; Thought content remains on paranoid ideations; denies any SI/HI. Did not ask about AH however patient does not overtly appear internally preoccupied Patients insight and judgment impaired but seems to be improving Diagnostics Vital Signs (24Hr): Vital Signs - 24 hr 06/28/25 20:00 06/28/25 23:05 06/29/25 08:00 Temperature 97.3 F 97.5 F Pulse Rate 74 100 Respiratory Rate 16 20 Blood Pressure 150/88 H 150/88 H Pulse Oximetry 100 100 Oxygen Delivery Method Room Air Room Air BMI result Body Mass Index 20.4 Labs 06/24/25 18:27 06/24/25 18:27 Medications Medications Current Medications Acetaminophen (Acetaminophen 325 Mg Tablet) 650 mg PO Q6H PRN PRN Reason: Headache/Pain, Scale 1-10 Last Admin: 06/27/25 13:13 Dose: 650 mg Al Hydroxide/Mg Hydroxide (Magnesium Hydrox/Alum Hydrox 30 Ml Oral.Susp) 30 ml PO Q6H PRN PRN Reason: Heartburn/Nausea Bupropion HCl (Bupropion Hcl Xl 300 Mg Tab.Er.24h) 300 mg PO DAILY [facility] On Hold: 06/29/25 11:10 Last Admin: 06/29/25 09:00 Dose: 300 mg Buspirone HCl (Buspirone Hcl 5 Mg Tablet) 15 mg PO BID [facility] Last Admin: 06/29/25 09:00 Dose: 15 mg Escitalopram Oxalate (Escitalopram Oxalate 10 Mg Tablet) 10 mg PO DAILY [facility] Last Admin: 06/29/25 09:00 Dose: 10 mg Hydroxyzine HCl (Hydroxyzine Hcl 25 Mg Tablet) 25 mg PO Q6H PRN PRN Reason: mild anxiety Ibuprofen (Ibuprofen 600 Mg Tablet) 600 mg PO Q6H PRN PRN Reason: Pain, Severe (Pain Scale 7-10) Last Admin: 06/29/25 06:01 Dose: 600 mg Lamotrigine (Lamotrigine 25 Mg Tablet) 50 mg PO BEDTIME [facility] Last Admin: 06/28/25 23:05 Dose: 50 mg Levothyroxine Sodium (Levothyroxine Sodium 75 Mcg Tablet) 75 mcg PO DAILY@0600 [facility] Last Admin: 06/29/25 07:59 Dose: 75 mcg Lidocaine (Lidocaine 4 % Patch Adh..Patch) 1 patch TRANSDERMA DAILY [facility]; Protocol Last Admin: 06/29/25 09:02 Dose: 1 patch Lorazepam (Lorazepam 0.5 Mg Tablet) 0.5 mg PO DAILY PRN PRN Reason: severe anxiety Last Admin: 06/29/25 11:04 Dose: 0.5 mg Magnesium Hydroxide (Milk Of Magnesia 30 Ml Oral.Susp) 30 ml PO DAILY PRN PRN Reason: Constipation Multivitamins/Vitamin C (Multivitamin Tablet) 1 tab PO DAILY [facility] Last Admin: 06/29/25 09:00 Dose: 1 tab Nicotine Polacrilex (Nicotine Polacrilex 2 Mg Gum) 4 mg BUCCAL Q2H PRN PRN Reason: Nicotine Cravings Pt Own ( Lisdexamfetamine 70 Mg) 70 mg PO DAILY [facility] On Hold: 06/29/25 11:07 Last Admin: 06/29/25 09:00 Dose: 70 mg Olanzapine (Olanzapine 5 Mg Tablet) 5 mg PO Q4H PRN PRN Reason: agitation, psychosis Last Admin: 06/28/25 13:09 Dose: 5 mg Prazosin HCl (Prazosin Hcl 1 Mg Capsule) 2 mg PO BEDTIME [facility]; Protocol Last Admin: 06/28/25 23:05 Dose: 2 mg Quetiapine Fumarate (Quetiapine Fumarate 100 Mg Tablet) 100 mg PO BEDTIME [facility] Last Admin: 06/28/25 23:05 Dose: 100 mg Risperidone (Risperidone 0.5 Mg Tablet) 0.5 mg PO BID@0900,1300 [facility] Trazodone HCl (Trazodone Hcl 50 Mg Tablet) 50 mg PO BEDTIME MRX1 PRN PRN Reason: Insomnia Allergies Allergies Allergy/AdvReac Type Severity Reaction Status Date / Time No Known Allergies Allergy Verified 06/24/25 17:49 Assessment & Plan Assessment & Plan (1) Acute psychosis: Status: Acute Code(s): F23 - Brief psychotic disorder (2) Depression: Status: Acute Code(s): F32.A - Depression, unspecified Plan HPI: Pt is a 40 year old female who presented to the ED after being dropped off by a friend . Upon arrival to the ED she appeared increasingly paranoid and indicated that she was fearful she was being drugged by her and voiced concern for her and her children's safety. Pt stated that she wanted to have her medications checked as things are just off, my daily routine is off . Pt provided inconsistent information as evidence by conflicting information from what she disclosed to the ED provider upon arrival and at times appears to be a poor historian as a result of her current presentation. She remained guarded at this time and at times appeared to be minimizing symptoms as well as medication seeking as she remained primarily focused on her controlled substances that she is currently prescribed. It is to be noted. Formulation/clinical reasoning: Increasing psychotic behaviors, paranoid, disorganized thought process. Family members have safety concern regarding patient mental status at this current time. Even the above information, patient will be benefit in restrictive environment, medication management, and refer patient back to outpatient psychiatric services. Hospital course: 06/25/25: Continue with home medications. In my impression, patient may think that she just come here to get refill of her medication and will be sent home. However, other time she also stating that she has not come here for medication change as if she needs a refilled she can get it feel from her OP provider. Ativan 1 mg q.4 hours p.r.n. for severe anxiety. Home dose was only 0.5 b.i.d. p.r.n.. Stimulants: Continue with stimulants, we will monitor if it causing more psychotic behavior. Questioned if patient overused her Adderall information regarding recent weight lost, and be psychotic. 06/26/2025: Continue to encourage medication adherence and engagement. 06/27: accepting medications and requested prazosin 2mg be restarted 06/28 Patient is a limited historian due to disorganized speech and behavior. Throughout interview patient looking off in the distance, sometimes very latent responses, appearing to be internally preoccupied; frequently not finishing sentences, giving cryptic, vague and frequently unrelated responses to discussion questions. Floor Polisher introduces himself has a doctor... Patient then asks are you a Dr.? I am not a doctor. I am Daphne... On inquiry about why patient came to the hospital, she replies, with speech latency and in broken sentences I came... I wanted medications reviewed... And wanted a toxicology... The unknown.... Things got a little unhinged... The court room... Domestic stuff. Patient goes on I was looking for my medications at my house... Interviews, talking, trying to survive all the time... The reality of things is unclear to me... Of the events. Floor Polisher asks for clarification to which patient says, again after significant latency, the court house... I just want my [place] back... (she later clarifies that the [place] is a multi tool knife). Patient then started to refer to another patient, saying he wants a tape measure... I have one... I can hang out... There is time and things will be revealed... Whenever thing comes together... Family and judges and worldly stuff.. Floor Polisher asks about her earlier concern that her is poisoning her... Patient remained silent for awhile and then says I checked my meds... When I went to talk to them... I would like to see the toxicology... My back was sweating.. I was questioning reality generally... There was a 911 call... She then told bond underwriter she questioned the reality of this conversation but could not clarify further but then some something about getting her red ticket.. Regarding how she got to the hospital, patient said officers came to my house and talked to my kids...my daughter called them...since i was not feeling safe.....i know my very well...it just wasnt a good think going on...i wasn't...no...it got real.....im in survival mode...it started getting scary and dangerous...my was getting a little...red flaggs...it started to be an unsafe situation..he [] was not himself... Patient also said that her best friend Stephanie Holder dropped her off at the hospital; not clear how she got here. Patient gave bond underwriter permission to talk to Stephanie and also to collect information from her . denies drugs or taking her prescribed medications in excess denies hx manic episodes; yes AH but nothing to be alarmed about... Nurse Note by Karon Arora RN 06/25/25 09:54 - This RN spoke to [facility] regarding the situation that led to being present here in the ER. Per [facility] employee, yesterday there was an argument between the patient and her where both her and her received a crisis consult. Per [facility] employee, patient was originally seen by [facility] crisis and it was determined she could go to respite, however, shortly after, crisis was called back to the home and the patient was sent here to the hospital. When the [facility] employee interviewed the pts 14 year old son, he reports that his mom has been acting really paranoid about things as of recently. (daughter 14yo, Son 11yo) 06/29 Patient remains with psychotic symptoms and said she thinks maybe he[] wants to kill or hurt me... Floor Polisher inquired and patient kept coming back to the fact that he put her home medications in the wrong pill box compartments... and this is what made her think he is trying to kill her... Patient however was willing to entertain that perhaps this might not be true. However, she is significantly more organized today than she was yesterday, talking in full sentences sticking to the topic at hand. She agrees that yesterday she was feeling much more confused she is thinking more clearly today. Patient's father present who has been meeting with her daily since this admission and who agrees that she is significantly better and headed back towards her regular self. Patient agreed to sign a CV and also agreed to have Vyvanse and bupropion discontinued for now; she also agreed to take risperidone which bond underwriter explained was hopefully just for few days. IMPRESSION: Patient demonstrating psychotic symptoms, auditory hallucinations, paranoid delusions and disorganized speech and behavior; patient is certainly internally preoccupied. So far collateral reports that patient has no history of psychosis or bipolar disorder. After gathering collateral from patient's and father, both deny any history of psychosis or sukhdeep were similar such episodes. Both speculate patient may have abused prescription medications including Vyvanse (and reports may have used crack cocaine) accounting for triggering this episode. Frequently substance induced psychosis resolves within 1-2 days (though can also persist for 2 or more weeks); however patient has remained on both Vyvanse and Wellbutrin which could prolonged symptoms (as both can increase dopamine). Will hold both Vyvanse and Wellbutrin. Also started risperidone low-dose to help with dopamine blockade. Plan 12 B q15 HOLD Wellbutrin 300 mg daily: will monitor for psychosis. HOLD Vyvanse Start risperidone 0.5 mg b.i.d. P.R.N. Zyprexa 5mg q.4 hours p.r.n. for agitation/psychosis Seroquel 100 at bedtime. Lamictal 50 mg at bedtime. BuSpar 15 mg twice a day. Lexapro 10mg daily Work with treatment team to do collateral Patient educated on: diagnosis, medication risk/benefits and therapeutic strategies Informed Consent: understands, does not understand and further education needed Reason for continued inpatient stay Substantial Risk for: rapid decompensation Time Spent With Patient Time: Total time managing care of this patient today ____ minutes.
[2025-06-29 20:00] VITALS: BP 134/87; PULSE 90; RESP 16; TEMP 38.9; O2SAT 99
[2025-06-29 21:06] VITALS: TEMP 37.4
[2025-06-30 08:23] LABS: MANUAL DIFF FLAG NO
[2025-06-30 08:32] LABS: Hematocrit 38.0 % (37.0-47.0); Hemoglobin 12.2 g/dl (12.0-16.0); Imm Gran Abs Auto 0.03 X10*3/uL (0.00-0.03); Imm Gran Pct Auto 0.4 % (0.0-0.4); Lymphocytes Absolute Auto 2.3 X10*3/uL (1.2-4.9); Mean Corpuscular HGB Conc 32.1 g/dl (31.0-35.0); Mean Corpuscular Hemoglobin 29.2 pg (27.0-33.0); Mean Corpuscular Volume 90.9 fL (80.0-98.0); NRBC Abs Auto 0.000 X10*3/uL (0.0-0.012); NRBC Pct Auto 0.0 /100WBC (0.0-0.2); Platelet Count 364 X10*3/uL (160-400); Red Blood Count 4.18 X10*6/uL (4.20-5.50); White Blood Count 7.7 X10*3/uL (4.8-10.8)
[2025-06-30 08:44] LABS: Alanine Aminotransferase 31 U/L (0-31); Albumin Level 4.9 g/dL (3.5-5.0); Alkaline Phosphatase 45 U/L (39-117); Anion Gap 13 (12-20); Aspartate Amino Transferase 29 U/L (5-31); Blood Urea Nitrogen 15 mg/dL (9-16); Calcium 9.8 mg/dL (8.4-10.2); Carbon Dioxide 29 mmol/L (22-29); Chloride 105 mmol/L (96-108); Creatinine Clr Calc Pharmacy 58.1; Estimated Glomerular Filt Rate 57; Potassium 4.5 mmol/L (3.3-5.1); Sodium 142 mmol/L (135-145); Total Protein 7.4 g/dL (6.5-8.0)
[2025-06-30 08:52] VITALS: BP 132/93; PULSE 106; RESP 16; TEMP 36.7; O2SAT 100
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
[2025-06-30 20:00] VITALS: BP 151/85; PULSE 78; RESP 18; TEMP 36.9; O2SAT 100
[2025-06-30] MEDS: Lidocaine 4 % Patch ADH..PATCH 1 PATCH TRANSDERMA (22:03)
[2025-07-01 07:00] VITALS: BMI 20.9
[2025-07-01 07:55] VITALS: BP 135/81; PULSE 90; TEMP 36.5; O2SAT 100
[2025-07-01] MEDS: Lidocaine 4 % Patch ADH..PATCH 1 PATCH TRANSDERMA (09:19)
--- NOTE | 2025-07-01 09:40 | P.PNPSI_ITS ---
Subjective Subjective Date of Service: 07/01/25 Reason For Visit: Recurrent major depression with psychosis Interim History: met with patient; discussed with team -still refusing risperdal -some hypervebal moments -self-dialoguing by herself in the kitchen; standing in hallway whispering to herself; bizarre movements with her hands/arms, moving in a robotic way...fixed stares... -still afraid of her -slept 8 hours Patient's sister showed up who endorsed her own history of schizoaffective disorder, bipolar type and that Risperdal had helped her. She shared that patient seemed to become manic about 5 months ago which correlated with increase in Vyvanse. Patient acknowledged this was likely true at sister's behest agreed to try Risperdal Mental Status Exam Mental Status Exam Narrative: Pt is alert and oriented; behavior is a little more disorganized; cooperative and friendly on approach; patient is not in distress; dressed in casual attire with adequate hygiene and grooming; mood is described as good though affect anxious; eye contact appropriate; Speech is normal rate, volume and prosody and not pressured; no psychomotor agitation/retardation present; thought process goal oriented; Thought content remains on paranoid ideations; denies any SI/HI. Denies AVH but patient appears internally preoccupied and intermittently responding to internal stimuli Patients insight and judgment impaired Diagnostics Vital Signs (24Hr): Vital Signs - 24 hr 06/30/25 20:00 07/01/25 07:55 Temperature 98.5 F 97.7 F Pulse Rate 78 90 Respiratory Rate 18 Blood Pressure 151/85 H 135/81 Pulse Oximetry 100 100 Oxygen Delivery Method Room Air Room Air BMI result Body Mass Index 20.4 Labs 06/30/25 07:49 06/30/25 07:49 Labs: Laboratory Results - last 48 hr 06/30/25 07:49 WBC 7.7 RBC 4.18 L Hgb 12.2 Hct 38.0 MCV 90.9 MCH 29.2 MCHC 32.1 RDW 13.0 Plt Count 364 MPV 9.4 Immature Gran % (Auto) 0.4 Neut % (Auto) 58.4 Lymph % (Auto) 30.3 [place] % (Auto) 7.7 Eos % (Auto) 2.2 Baso % (Auto) 1.0 Lymph # (Auto) 2.3 [place] # (Auto) 0.6 Eos # (Auto) 0.2 Baso # (Auto) 0.1 Abs Immat Gran (auto) 0.03 Absolute Neuts (auto) 4.5 Absolute Nucleated RBC 0.000 Nucleated RBC % (auto) 0.0 Sodium 142 Potassium 4.5 D Chloride 105 Carbon Dioxide 29 Anion Gap 13 BUN 15 Creatinine 1.06 Estim Creat Clear Calc 58.1 Estimated GFR 57 Random Glucose 92 Calcium 9.8 Total Bilirubin 0.4 AST 29 ALT 31 Alkaline Phosphatase 45 Total Protein 7.4 Albumin 4.9 Medications Medications Current Medications Acetaminophen (Acetaminophen 325 Mg Tablet) 650 mg PO Q6H PRN PRN Reason: Headache/Pain, Scale 1-10 Last Admin: 06/29/25 22:12 Dose: 650 mg Al Hydroxide/Mg Hydroxide (Magnesium Hydrox/Alum Hydrox 30 Ml Oral.Susp) 30 ml PO Q6H PRN PRN Reason: Heartburn/Nausea Buspirone HCl (Buspirone Hcl 5 Mg Tablet) 15 mg PO BID [facility] Last Admin: 07/01/25 08:35 Dose: 15 mg Escitalopram Oxalate (Escitalopram Oxalate 10 Mg Tablet) 10 mg PO DAILY [facility] Last Admin: 07/01/25 08:36 Dose: 10 mg Hydroxyzine HCl (Hydroxyzine Hcl 25 Mg Tablet) 25 mg PO Q6H PRN PRN Reason: mild anxiety Last Admin: 06/29/25 17:08 Dose: 25 mg Ibuprofen (Ibuprofen 600 Mg Tablet) 600 mg PO Q6H PRN PRN Reason: Pain, Severe (Pain Scale 7-10) Last Admin: 06/30/25 21:39 Dose: 600 mg Lamotrigine (Lamotrigine 25 Mg Tablet) 50 mg PO BEDTIME [facility] Last Admin: 06/30/25 21:45 Dose: Not Given Levothyroxine Sodium (Levothyroxine Sodium 75 Mcg Tablet) 75 mcg PO DAILY@0600 [facility] Last Admin: 07/01/25 07:22 Dose: Not Given Lidocaine (Lidocaine 4 % Patch Adh..Patch) 1 patch TRANSDERMA DAILY [facility]; Protocol Last Admin: 07/01/25 09:19 Dose: 1 patch Lorazepam (Lorazepam 0.5 Mg Tablet) 0.5 mg PO DAILY PRN PRN Reason: severe anxiety Last Admin: 06/29/25 11:04 Dose: 0.5 mg Magnesium Hydroxide (Milk Of Magnesia 30 Ml Oral.Susp) 30 ml PO DAILY PRN PRN Reason: Constipation Multivitamins/Vitamin C (Multivitamin Tablet) 1 tab PO DAILY [facility] Last Admin: 07/01/25 08:36 Dose: 1 tab Nicotine Polacrilex (Nicotine Polacrilex 2 Mg Gum) 4 mg BUCCAL Q2H PRN PRN Reason: Nicotine Cravings Prazosin HCl (Prazosin Hcl 1 Mg Capsule) 2 mg PO BEDTIME [facility]; Protocol Last Admin: 06/30/25 21:37 Dose: 2 mg Quetiapine Fumarate (Quetiapine Fumarate 100 Mg Tablet) 100 mg PO BEDTIME [facility] Last Admin: 06/30/25 21:40 Dose: 100 mg Risperidone (Risperidone 0.5 Mg Tablet) 0.5 mg PO TID [facility] Last Admin: 07/01/25 09:06 Dose: Not Given Trazodone HCl (Trazodone Hcl 50 Mg Tablet) 50 mg PO BEDTIME MRX1 PRN PRN Reason: Insomnia Allergies Allergies Allergy/AdvReac Type Severity Reaction Status Date / Time No Known Allergies Allergy Verified 06/24/25 17:49 Assessment & Plan Assessment & Plan (1) Acute psychosis: Status: Acute Code(s): F23 - Brief psychotic disorder (2) Depression: Status: Acute Code(s): F32.A - Depression, unspecified Plan HPI: Pt is a 40 year old female who presented to the ED after being dropped off by a friend . Upon arrival to the ED she appeared increasingly paranoid and indicated that she was fearful she was being drugged by her and voiced concern for her and her children's safety. Pt stated that she wanted to have her medications checked as things are just off, my daily routine is off . Pt provided inconsistent information as evidence by conflicting information from what she disclosed to the ED provider upon arrival and at times appears to be a poor historian as a result of her current presentation. She remained guarded at this time and at times appeared to be minimizing symptoms as well as medication seeking as she remained primarily focused on her controlled substances that she is currently prescribed. It is to be noted. Formulation/clinical reasoning: Increasing psychotic behaviors, paranoid, disorganized thought process. Family members have safety concern regarding patient mental status at this current time. Even the above information, patient will be benefit in restrictive environment, medication management, and refer patient back to outpatient psychiatric services. Hospital course: 06/25/25: Continue with home medications. In my impression, patient may think that she just come here to get refill of her medication and will be sent home. However, other time she also stating that she has not come here for medication change as if she needs a refilled she can get it feel from her OP provider. Ativan 1 mg q.4 hours p.r.n. for severe anxiety. Home dose was only 0.5 b.i.d. p.r.n.. Stimulants: Continue with stimulants, we will monitor if it causing more psychotic behavior. Questioned if patient overused her Adderall information regarding recent weight lost, and be psychotic. 06/26/2025: Continue to encourage medication adherence and engagement. 06/27: accepting medications and requested prazosin 2mg be restarted 06/28 Patient is a limited historian due to disorganized speech and behavior. Throughout interview patient looking off in the distance, sometimes very latent responses, appearing to be internally preoccupied; frequently not finishing sentences, giving cryptic, vague and frequently unrelated responses to discussion questions. Agricultural Commodities Inspector introduces himself has a doctor... Patient then asks are you a Dr.? I am not a doctor. I am Daphne... On inquiry about why patient came to the hospital, she replies, with speech latency and in broken sentences I came... I wanted medications reviewed... And wanted a toxicology... The unknown.... Things got a little unhinged... The court room... Domestic stuff. Patient goes on I was looking for my medications at my house... Interviews, talking, trying to survive all the time... The reality of things is unclear to me... Of the events. Agricultural Commodities Inspector asks for clarification to which patient says, again after significant latency, the court house... I just want my Garrett back... (she later clarifies that the Garrett is a multi tool knife). Patient then started to refer to another patient, saying he wants a tape measure... I have one... I can hang out... There is time and things will be revealed... Whenever thing comes together... Family and judges and worldly stuff.. Agricultural Commodities Inspector asks about her earlier concern that her is poisoning her... Patient remained silent for awhile and then says I checked my meds... When I went to talk to them... I would like to see the toxicology... My back was sweating.. I was questioning reality generally... There was a 911 call... She then told production underwriter she questioned the reality of this conversation but could not clarify further but then some something about getting her red ticket.. Regarding how she got to the hospital, patient said officers came to my house and talked to my kids...my daughter called them...since i was not feeling safe.....i know my very well...it just wasnt a good think going on...i wasn't...no...it got real.....im in survival mode...it started getting scary and dangerous...my was getting a little...red flaggs...it started to be an unsafe situation..he [] was not himself... Patient also said that her best friend Stephanie Holder dropped her off at the hospital; not clear how she got here. Patient gave production underwriter permission to talk to Stephanie and also to collect information from her . denies drugs or taking her prescribed medications in excess denies hx manic episodes; yes AH but nothing to be alarmed about... Nurse Note by Karon Arora RN 06/25/25 09:54 - This RN spoke to [facility] regarding the situation that led to being present here in the ER. Per [facility] employee, yesterday there was an argument between the patient and her where both her and her received a crisis consult. Per [facility] employee, patient was originally seen by [facility] crisis and it was determined she could go to respite, however, shortly after, crisis was called back to the home and the patient was sent here to the hospital. When the [facility] employee interviewed the pts 14 year old son, he reports that his mom has been acting really paranoid about things as of recently. (daughter 14yo, Son 11yo) 06/29 Patient remains with psychotic symptoms and said she thinks maybe he[] wants to kill or hurt me... Agricultural Commodities Inspector inquired and patient kept coming back to the fact that he put her home medications in the wrong pill box compartments... and this is what made her think he is trying to kill her... Patient however was willing to entertain that perhaps this might not be true. However, she is significantly more organized today than she was yesterday, talking in full sentences sticking to the topic at hand. She agrees that yesterday she was feeling much more confused she is thinking more clearly today. Patient's father present who has been meeting with her daily since this admission and who agrees that she is significantly better and headed back towards her regular self. Patient agreed to sign a CV and also agreed to have Vyvanse and bupropion discontinued for now; she also agreed to take risperidone which production underwriter explained was hopefully just for few days. IMPRESSION: Patient demonstrating psychotic symptoms, auditory hallucinations, paranoid delusions and disorganized speech and behavior; patient is certainly internally preoccupied. So far collateral reports that patient has no history of psychosis or bipolar disorder. After gathering collateral from patient's and father, both deny any history of psychosis or sukhdeep were similar such episodes. Both speculate patient may have abused prescription medications including Vyvanse (and reports may have used crack cocaine) accounting for triggering this episode. Frequently substance induced psychosis resolves within 1-2 days (though can also persist for 2 or more weeks); however patient has remained on both Vyvanse and Wellbutrin which could prolonged symptoms (as both can increase dopamine). Will hold both Vyvanse and Wellbutrin. Also started risperidone low-dose to help with dopamine blockade. 06/30 Patient remains with paranoid ideation; refused Risperdal. On inquiry patient said she does not think she needs it but production underwriter continue to educate patient on medication and she said she would start taking it. Patient with some increase disorganized behaviors today, seen self-dialoguing and responding to internal stimuli at 1 point standing aimlessly in hallway, not moving. Slept only 4 hours -hopefully patient will start taking risperidone Plan 12 B q15 HOLD Wellbutrin 300 mg daily: will monitor for psychosis. HOLD Vyvanse Start risperidone 0.5 mg b.i.d. P.R.N. Zyprexa 5mg q.4 hours p.r.n. for agitation/psychosis Serojodiel 100 at bedtime. Lamictal 50 mg at bedtime. BuSpar 15 mg twice a day. Lexapro 10mg daily Work with treatment team to do collateral Patient educated on: diagnosis, medication risk/benefits and therapeutic strategies Informed Consent: understands, does not understand and further education needed Reason for continued inpatient stay Substantial Risk for: inability to function Time Spent With Patient Time: Total time managing care of this patient today ____ minutes.
[2025-07-01 20:00] VITALS: BP 128/79; PULSE 104; RESP 16; TEMP 36.8; O2SAT 98
[2025-07-02 08:00] VITALS: BP 136/81; PULSE 104; RESP 18; TEMP 36.9; O2SAT 98
[2025-07-02 19:51] VITALS: BP 139/90; PULSE 87; RESP 16; TEMP 36.3; O2SAT 97
--- NOTE | 2025-07-02 23:28 | P.PNPSI_ITS ---
Subjective Subjective Date of Service: 07/02/25 Reason For Visit: Recurrent major depression with psychosis Interim History: Met with patient; discussed with team Patient intermittently with some disorganized behaviors but much less and during 1-1 session able to remain organized in both speech and behavior. Still with some paranoid ideations about her but less intense and more open to reality testing. Patient shared her history much more organized detail reports she has carried a diagnosis of bipolar disorder for years. At 1 point she was stabilized on Seroquel, another point Lamictal; not clear if she was on therapeutic doses of both at the same time (she is on Seroquel 100 mg now for sleep). Patient also shares that she is being tapered down off Lamictal, used to be on 200 mg at the same time titrated on Vyvanse. This seems to correlate with manic symptoms that 1st appeared about 5 months ago. Patient and freelance copywriter discussed medications, she is hoping to remain improved without having to take Risperdal and agrees to increasing Lamictal Mental Status Exam Mental Status Exam Narrative: Pt is alert and oriented; behavior is remains a little odd intermittently disorganized but much more improved and able to remain organized during 1 on 1 sessions; patient cooperative, friendly and calm on approach; patient is not in distress; dressed in casual attire with adequate hygiene and grooming; mood is described as good and affect congruent, brighter more calm; eye contact appropriate; Speech is normal rate, volume and prosody and not pressured; some intermittent, mild psychomotor agitation present; thought process is improving and more organized; Thought content is on history, psychosocial stressors, treatment; still some paranoid ideations but more open to reality testing; denies any SI/HI. Unclear about AH; intermittently seems internally preoccupied Patients insight and judgment improving Diagnostics Vital Signs (24Hr): Vital Signs - 24 hr 07/02/25 08:00 07/02/25 19:51 Temperature 98.4 F 97.3 F Pulse Rate 104 H 87 Respiratory Rate 18 16 Blood Pressure 136/81 139/90 H Pulse Oximetry 98 97 Oxygen Delivery Method Room Air Room Air BMI result Body Mass Index 20.9 Labs 06/30/25 07:49 06/30/25 07:49 Medications Medications Current Medications Acetaminophen (Acetaminophen 325 Mg Tablet) 650 mg PO Q6H PRN PRN Reason: Headache/Pain, Scale 1-10 Last Admin: 07/02/25 09:27 Dose: 650 mg Al Hydroxide/Mg Hydroxide (Magnesium Hydrox/Alum Hydrox 30 Ml Oral.Susp) 30 ml PO Q6H PRN PRN Reason: Heartburn/Nausea Buspirone HCl (Buspirone Hcl 5 Mg Tablet) 15 mg PO BID [facility] Last Admin: 07/02/25 21:23 Dose: 15 mg Cyclobenzaprine HCl (Cyclobenzaprine Hcl 10 Mg Tablet) 10 mg PO TID PRN PRN Reason: Muscle Spasm Escitalopram Oxalate (Escitalopram Oxalate 10 Mg Tablet) 10 mg PO DAILY [facility] Last Admin: 07/02/25 09:00 Dose: 10 mg Hydroxyzine HCl (Hydroxyzine Hcl 25 Mg Tablet) 25 mg PO Q6H PRN PRN Reason: mild anxiety Last Admin: 06/29/25 17:08 Dose: 25 mg Ibuprofen (Ibuprofen 600 Mg Tablet) 600 mg PO Q6H PRN PRN Reason: Pain, Severe (Pain Scale 7-10) Last Admin: 07/01/25 11:44 Dose: 600 mg Lamotrigine (Lamotrigine 100 Mg Tablet) 100 mg PO BEDTIME [facility] Last Admin: 07/02/25 21:23 Dose: 100 mg Levothyroxine Sodium (Levothyroxine Sodium 75 Mcg Tablet) 75 mcg PO DAILY@0600 [facility] Last Admin: 07/02/25 05:53 Dose: 75 mcg Lidocaine (Lidocaine 4 % Patch Adh..Patch) 1 patch TRANSDERMA DAILY [facility]; Protocol Last Admin: 07/02/25 08:59 Dose: Not Given Lorazepam (Lorazepam 0.5 Mg Tablet) 0.5 mg PO DAILY PRN PRN Reason: severe anxiety Last Admin: 06/29/25 11:04 Dose: 0.5 mg Magnesium Hydroxide (Milk Of Magnesia 30 Ml Oral.Susp) 30 ml PO DAILY PRN PRN Reason: Constipation Multivitamins/Vitamin C (Multivitamin Tablet) 1 tab PO DAILY [facility] Last Admin: 07/02/25 09:00 Dose: 1 tab Nicotine Polacrilex (Nicotine Polacrilex 2 Mg Gum) 4 mg BUCCAL Q2H PRN PRN Reason: Nicotine Cravings Prazosin HCl (Prazosin Hcl 1 Mg Capsule) 2 mg PO BEDTIME [facility]; Protocol Last Admin: 07/02/25 21:23 Dose: 2 mg Quetiapine Fumarate (Quetiapine Fumarate 100 Mg Tablet) 100 mg PO BEDTIME [facility] Last Admin: 07/02/25 21:23 Dose: 100 mg Risperidone (Risperidone 1 Mg Tablet) 1 mg PO DAILY PRN PRN Reason: disorganized behavior Trazodone HCl (Trazodone Hcl 50 Mg Tablet) 50 mg PO BEDTIME MRX1 PRN PRN Reason: Insomnia Allergies Allergies Allergy/AdvReac Type Severity Reaction Status Date / Time No Known Allergies Allergy Verified 06/24/25 17:49 Assessment & Plan Assessment & Plan (1) Acute psychosis: Status: Acute Code(s): F23 - Brief psychotic disorder (2) Depression: Status: Acute Code(s): F32.A - Depression, unspecified Plan HPI: Pt is a 40 year old female who presented to the ED after being dropped off by a friend . Upon arrival to the ED she appeared increasingly paranoid and indicated that she was fearful she was being drugged by her and voiced concern for her and her children's safety. Pt stated that she wanted to have her medications checked as things are just off, my daily routine is off . Pt provided inconsistent information as evidence by conflicting information from what she disclosed to the ED provider upon arrival and at times appears to be a poor historian as a result of her current presentation. She remained guarded at this time and at times appeared to be minimizing symptoms as well as medication seeking as she remained primarily focused on her controlled substances that she is currently prescribed. It is to be noted. Formulation/clinical reasoning: Increasing psychotic behaviors, paranoid, disorganized thought process. Family members have safety concern regarding patient mental status at this current time. Even the above information, patient will be benefit in restrictive environment, medication management, and refer patient back to outpatient psychiatric services. Hospital course: 06/25/25: Continue with home medications. In my impression, patient may think that she just come here to get refill of her medication and will be sent home. However, other time she also stating that she has not come here for medication change as if she needs a refilled she can get it feel from her OP provider. Ativan 1 mg q.4 hours p.r.n. for severe anxiety. Home dose was only 0.5 b.i.d. p.r.n.. Stimulants: Continue with stimulants, we will monitor if it causing more psychotic behavior. Questioned if patient overused her Adderall information regarding recent weight lost, and be psychotic. 06/26/2025: Continue to encourage medication adherence and engagement. 06/27: accepting medications and requested prazosin 2mg be restarted 06/28 Patient is a limited historian due to disorganized speech and behavior. Throughout interview patient looking off in the distance, sometimes very latent responses, appearing to be internally preoccupied; frequently not finishing sentences, giving cryptic, vague and frequently unrelated responses to discussion questions. Expanding Machine Operator introduces himself has a doctor... Patient then asks are you a Dr.? I am not a doctor. I am Daphne... On inquiry about why patient came to the hospital, she replies, with speech latency and in broken sentences I came... I wanted medications reviewed... And wanted a toxicology... The unknown.... Things got a little unhinged... The court room... Domestic stuff. Patient goes on I was looking for my medications at my house... Interviews, talking, trying to survive all the time... The reality of things is unclear to me... Of the events. Expanding Machine Operator asks for clarification to which patient says, again after significant latency, the court house... I just want my [place] back... (she later clarifies that the [place] is a multi tool knife). Patient then started to refer to another patient, saying he wants a tape measure... I have one... I can hang out... There is time and things will be revealed... Whenever thing comes together... Family and judges and worldly stuff.. Expanding Machine Operator asks about her earlier concern that her is poisoning her... Patient remained silent for awhile and then says I checked my meds... When I went to talk to them... I would like to see the toxicology... My back was sweating.. I was questioning reality generally... There was a 911 call... She then told freelance copywriter she questioned the reality of this conversation but could not clarify further but then some something about getting her red ticket.. Regarding how she got to the hospital, patient said officers came to my house and talked to my kids...my daughter called them...since i was not feeling safe.....i know my very well...it just wasnt a good think going on...i wasn't...no...it got real.....im in survival mode...it started getting scary and dangerous...my was getting a little...red flaggs...it started to be an unsafe situation..he [] was not himself... Patient also said that her best friend Stephanie Holder dropped her off at the hospital; not clear how she got here. Patient gave freelance copywriter permission to talk to Stephanie and also to collect information from her . denies drugs or taking her prescribed medications in excess denies hx manic episodes; yes AH but nothing to be alarmed about... Nurse Note by Karon Arora RN 06/25/25 09:54 - This RN spoke to [facility] regarding the situation that led to being present here in the ER. Per [facility] employee, yesterday there was an argument between the patient and her where both her and her received a crisis consult. Per [facility] employee, patient was originally seen by [facility] mobile crisis and it was determined she could go to respite, however, shortly after, crisis was called back to the home and the patient was sent here to the hospital. When the [facility] employee interviewed the pts 14 year old son, he reports that his mom has been acting really paranoid about things as of recently. (daughter 14yo, Son 11yo) 06/29 Patient remains with psychotic symptoms and said she thinks maybe he[] wants to kill or hurt me... Expanding Machine Operator inquired and patient kept coming back to the fact that he put her home medications in the wrong pill box compartments... and this is what made her think he is trying to kill her... Patient however was willing to entertain that perhaps this might not be true. However, she is significantly more organized today than she was yesterday, talking in full sentences sticking to the topic at hand. She agrees that yesterday she was feeling much more confused she is thinking more clearly today. Patient's father present who has been meeting with her daily since this admission and who agrees that she is significantly better and headed back towards her regular self. Patient agreed to sign a CV and also agreed to have Vyvanse and bupropion discontinued for now; she also agreed to take risperidone which freelance copywriter explained was hopefully just for few days. IMPRESSION: Patient demonstrating psychotic symptoms, auditory hallucinations, paranoid delusions and disorganized speech and behavior; patient is certainly internally preoccupied. So far collateral reports that patient has no history of psychosis or bipolar disorder. After gathering collateral from patient's and father, both deny any history of psychosis or sukhdeep were similar such episodes. Both speculate patient may have abused prescription medications including Vyvanse (and reports may have used crack cocaine) accounting for triggering this episode. Frequently substance induced psychosis resolves within 1-2 days (though can also persist for 2 or more weeks); however patient has remained on both Vyvanse and Wellbutrin which could prolonged symptoms (as both can increase dopamine). Will hold both Vyvanse and Wellbutrin. Also started risperidone low-dose to help with dopamine blockade. 06/30 Patient remains with paranoid ideation; refused Risperdal. On inquiry patient said she does not think she needs it but freelance copywriter continue to educate patient on medication and she said she would start taking it. Patient with some increase disorganized behaviors today, seen self-dialoguing and responding to internal stimuli at 1 point standing aimlessly in hallway, not moving. Slept only 4 hours -hopefully patient will start taking risperidone 07/01 patient remains with intermittent odd and disorganized behaviors, talking to herself in the wetzel; remains with paranoid ideations however is able to be more logical in conversation and for longer periods of time. Patient's sister visiting who gave history that patient started to a peer to be manic about 5 months ago which correlates to increased Vyvanse dose (hyperactive, rapid speech, little sleep-which patient concurred); patient's sister volunteered that she has schizoaffective disorder and has been on medication which was a surprise to patient but with this news was willing to take Risperdal 07/02 patient doing much better. Patient is more organized in both speech and behavior. Patient did take Risperdal twice yesterday but found it made her tired and did not want it anymore. However she agrees it may have been helpful. Patient for the 1st time able to talk much more logically and accurately about history and shares with freelance copywriter that she has been diagnosed with bipolar disorder in the past and was at 1 point on Seroquel around 400 mg and then stabilized on Lamictal 200 mg. Patient said that she had been doing well for so long that her current psychiatric provider agreed to start peeling away her medications and Seroquel was lowered to 100 mg Lamictal tapered down to 50 mg. This taper coincided with patient being started on stimulant medication for ADHD and her Vyvanse was titrated. Patient agrees that it is very possible that the tapering off of Lamictal (she may have been on only Lamictal and not Seroquel for quite awhile) the titration of a stimulant medication is what triggered manic episode which worsened over the past few weeks and included significant paranoid ideations. Patient agrees to get back on Lamictal which caused no side effects. -remains with paranoid ideations about her but they are less intense and patient more open to reality testing; of note patient's does have schizophrenia Plan 12 B q15 Increase Lamictal to 100 mg: Used to be on 200 and has been on 50 mg for months HOLD Wellbutrin 300 mg daily: will monitor for psychosis. HOLD Vyvanse DC risperidone; patient does not like and patient is improved P.R.N. Zyprexa 5mg q.4 hours p.r.n. for agitation/psychosis Seroquel 100 at bedtime. Lamictal 50 mg at bedtime. BuSpar 15 mg twice a day. Lexapro 10mg daily Work with treatment team to do collateral Patient educated on: diagnosis, medication risk/benefits and therapeutic strategies Informed Consent: understands and further education needed Reason for continued inpatient stay Substantial Risk for: rapid decompensation Time Spent With Patient Time: Total time managing care of this patient today ____ minutes.
[2025-07-03 08:26] VITALS: BP 144/76; PULSE 86; O2SAT 99
[2025-07-03] MEDS: Lidocaine 4 % Patch ADH..PATCH 1 PATCH TRANSDERMA (08:52)
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
[2025-07-03 19:44] VITALS: BP 174/89; PULSE 94; RESP 16; TEMP 36.8; O2SAT 100
[2025-07-04 07:56] VITALS: BP 127/77; PULSE 106; RESP 18; TEMP 36.4; O2SAT 97
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
[2025-07-04 20:00] VITALS: BP 142/65; PULSE 75; RESP 16; TEMP 36.6; O2SAT 100
[2025-07-04 22:29] VITALS: BP 128/75
[2025-07-05 07:49] VITALS: BP 140/72; PULSE 105; RESP 18; TEMP 36.3; O2SAT 99
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
[2025-07-05 20:00] VITALS: BP 143/77; PULSE 74; RESP 16; TEMP 35.6; O2SAT 98
[2025-07-06 07:58] VITALS: BP 145/100; PULSE 118; RESP 18; TEMP 36.3; O2SAT 100
--- NOTE | 2025-07-06 09:38 | P.PNPSI_ITS ---
Subjective Subjective Date of Service: 07/06/25 Reason For Visit: Recurrent major depression with psychosis Interim History: met with patient; discussed with team; family meeting with father and sister Patient more disorganized doing bizarre, odd hand movements during interview. Patient mimicking/mirroring the hand gestures of whomever is talking; some echolalia as well. Patient remains very vague when discussing her thoughts. Continues to have some paranoid ideations about her however patient's sister does agree that patient's is excessively controlling and for the past 2 years, the sister has noticed that he dictates how long and with whom patient can spend time. Patient struggles to have insight into her behaviors including when they are pointed out in real-time. However she does agree to start perphenazine Mental Status Exam Mental Status Exam Narrative: Pt is alert and oriented; behavior is more disorganized and odd than before; odd movements with hands and arms, mirroring and with some echolalia; guarded and superficially cooperative; patient is not in distress; dressed in casual attire with adequate grooming and hygiene; mood is described as good the affect anxious; eye contact appropriate; Speech is normal rate, volume and prosody and not pressured; psychomotor agitation present; thought process is distracted; able to be goal directed; Thought content paranoid ideations; denies any SI/HI. Denies AVH but clearly internally preoccupied Patients insight and judgment impaired Diagnostics Vital Signs (24Hr): Vital Signs - 24 hr 07/05/25 20:00 07/06/25 07:58 Temperature 96.1 F L 97.3 F Pulse Rate 74 118 H Respiratory Rate 16 18 Blood Pressure 143/77 H 145/100 H Pulse Oximetry 98 100 Oxygen Delivery Method Room Air Room Air BMI result Body Mass Index 20.9 Labs 06/30/25 07:49 06/30/25 07:49 Medications Medications Current Medications Acetaminophen (Acetaminophen 325 Mg Tablet) 650 mg PO Q6H PRN PRN Reason: Headache/Pain, Scale 1-10 Last Admin: 07/02/25 09:27 Dose: 650 mg Al Hydroxide/Mg Hydroxide (Magnesium Hydrox/Alum Hydrox 30 Ml Oral.Susp) 30 ml PO Q6H PRN PRN Reason: Heartburn/Nausea Buspirone HCl (Buspirone Hcl 5 Mg Tablet) 15 mg PO BID [facility] Last Admin: 07/06/25 08:25 Dose: 15 mg Cyclobenzaprine HCl (Cyclobenzaprine Hcl 10 Mg Tablet) 10 mg PO TID PRN PRN Reason: Muscle Spasm Escitalopram Oxalate (Escitalopram Oxalate 10 Mg Tablet) 10 mg PO DAILY [facility] Last Admin: 07/06/25 08:25 Dose: 10 mg Hydroxyzine HCl (Hydroxyzine Hcl 25 Mg Tablet) 25 mg PO Q6H PRN PRN Reason: mild anxiety Last Admin: 06/29/25 17:08 Dose: 25 mg Ibuprofen (Ibuprofen 600 Mg Tablet) 600 mg PO Q6H PRN PRN Reason: Pain, Severe (Pain Scale 7-10) Last Admin: 07/05/25 13:21 Dose: 600 mg Lamotrigine (Lamotrigine 100 Mg Tablet) 100 mg PO BEDTIME [facility] Last Admin: 07/06/25 00:13 Dose: 100 mg Levothyroxine Sodium (Levothyroxine Sodium 75 Mcg Tablet) 75 mcg PO DAILY@0600 [facility] Last Admin: 07/06/25 07:19 Dose: 75 mcg Lidocaine (Lidocaine 4 % Patch Adh..Patch) 1 patch TRANSDERMA DAILY [facility]; Protocol Last Admin: 07/06/25 08:25 Dose: Not Given Lorazepam (Lorazepam 0.5 Mg Tablet) 0.5 mg PO DAILY PRN PRN Reason: severe anxiety Last Admin: 07/04/25 10:04 Dose: 0.5 mg Magnesium Hydroxide (Milk Of Magnesia 30 Ml Oral.Susp) 30 ml PO DAILY PRN PRN Reason: Constipation Multivitamins/Vitamin C (Multivitamin Tablet) 1 tab PO DAILY [facility] Last Admin: 07/06/25 08:25 Dose: 1 tab Nicotine Polacrilex (Nicotine Polacrilex 2 Mg Gum) 4 mg BUCCAL Q2H PRN PRN Reason: Nicotine Cravings Prazosin HCl (Prazosin Hcl 1 Mg Capsule) 2 mg PO BEDTIME [facility]; Protocol Last Admin: 07/06/25 00:12 Dose: 2 mg Quetiapine Fumarate (Quetiapine Fumarate 100 Mg Tablet) 100 mg PO BEDTIME [facility] Last Admin: 07/06/25 00:13 Dose: 100 mg Risperidone (Risperidone 1 Mg Tablet) 1 mg PO DAILY PRN PRN Reason: disorganized behavior Trazodone HCl (Trazodone Hcl 50 Mg Tablet) 50 mg PO BEDTIME MRX1 PRN PRN Reason: Insomnia Allergies Allergies Allergy/AdvReac Type Severity Reaction Status Date / Time No Known Allergies Allergy Verified 06/24/25 17:49 Assessment & Plan Assessment & Plan (1) Acute psychosis: Status: Acute Code(s): F23 - Brief psychotic disorder (2) Depression: Status: Acute Code(s): F32.A - Depression, unspecified Plan HPI: Pt is a 40 year old female who presented to the ED after being dropped off by a friend . Upon arrival to the ED she appeared increasingly paranoid and indicated that she was fearful she was being drugged by her and voiced concern for her and her children's safety. Pt stated that she wanted to have her medications checked as things are just off, my daily routine is off . Pt provided inconsistent information as evidence by conflicting information from what she disclosed to the ED provider upon arrival and at times appears to be a poor historian as a result of her current presentation. She remained guarded at this time and at times appeared to be minimizing symptoms as well as medication seeking as she remained primarily focused on her controlled substances that she is currently prescribed. It is to be noted. Formulation/clinical reasoning: Increasing psychotic behaviors, paranoid, disorganized thought process. Family members have safety concern regarding patient mental status at this current time. Even the above information, patient will be benefit in restrictive environment, medication management, and refer patient back to outpatient psychiatric services. Hospital course: 06/25/25: Continue with home medications. In my impression, patient may think that she just come here to get refill of her medication and will be sent home. However, other time she also stating that she has not come here for medication change as if she needs a refilled she can get it feel from her OP provider. Ativan 1 mg q.4 hours p.r.n. for severe anxiety. Home dose was only 0.5 b.i.d. p.r.n.. Stimulants: Continue with stimulants, we will monitor if it causing more psychotic behavior. Questioned if patient overused her Adderall information regarding recent weight lost, and be psychotic. 06/26/2025: Continue to encourage medication adherence and engagement. 06/27: accepting medications and requested prazosin 2mg be restarted 06/28 Patient is a limited historian due to disorganized speech and behavior. Throughout interview patient looking off in the distance, sometimes very latent responses, appearing to be internally preoccupied; frequently not finishing sentences, giving cryptic, vague and frequently unrelated responses to discussion questions. Group Work Program Director introduces himself has a doctor... Patient then asks are you a Dr.? I am not a doctor. I am Daphne... On inquiry about why patient came to the hospital, she replies, with speech latency and in broken sentences I came... I wanted medications reviewed... And wanted a toxicology... The unknown.... Things got a little unhinged... The court room... Domestic stuff. Patient goes on I was looking for my medications at my house... Interviews, talking, trying to survive all the time... The reality of things is unclear to me... Of the events. Group Work Program Director asks for clarification to which patient says, again after significant latency, the court house... I just want my [place] back... (she later clarifies that the Garrett is a multi tool knife). Patient then started to refer to another patient, saying he wants a tape measure... I have one... I can hang out... There is time and things will be revealed... Whenever thing comes together... Family and judges and worldly stuff.. Group Work Program Director asks about her earlier concern that her is poisoning her... Patient remained silent for awhile and then says I checked my meds... When I went to talk to them... I would like to see the toxicology... My back was sweating.. I was questioning reality generally... There was a 911 call... She then told magnetic tape typewriter operator she questioned the reality of this conversation but could not clarify further but then some something about getting her red ticket.. Regarding how she got to the hospital, patient said officers came to my house and talked to my kids...my daughter called them...since i was not feeling safe.....i know my very well...it just wasnt a good think going on...i wasn't...no...it got real.....im in survival mode...it started getting scary and dangerous...my was getting a little...red flaggs...it started to be an unsafe situation..he [] was not himself... Patient also said that her best friend Stephanie Holder dropped her off at the hospital; not clear how she got here. Patient gave magnetic tape typewriter operator permission to talk to Stephanie and also to collect information from her . denies drugs or taking her prescribed medications in excess denies hx manic episodes; yes AH but nothing to be alarmed about... Nurse Note by Karon Arora RN 06/25/25 09:54 - This RN spoke to [facility] regarding the situation that led to being present here in the ER. Per [facility] employee, yesterday there was an argument between the patient and her where both her and her received a crisis consult. Per [facility] employee, patient was originally seen by [facility] crisis and it was determined she could go to respite, however, shortly after, crisis was called back to the home and the patient was sent here to the hospital. When the [facility] employee interviewed the pts 14 year old son, he reports that his mom has been acting really paranoid about things as of recently. (daughter 14yo, Son 11yo) 06/29 Patient remains with psychotic symptoms and said she thinks maybe he[] wants to kill or hurt me... Group Work Program Director inquired and patient kept coming back to the fact that he put her home medications in the wrong pill box compartments... and this is what made her think he is trying to kill her... Patient however was willing to entertain that perhaps this might not be true. However, she is significantly more organized today than she was yesterday, talking in full sentences sticking to the topic at hand. She agrees that yesterday she was feeling much more confused she is thinking more clearly today. Patient's father present who has been meeting with her daily since this admission and who agrees that she is significantly better and headed back towards her regular self. Patient agreed to sign a CV and also agreed to have Vyvanse and bupropion discontinued for now; she also agreed to take risperidone which magnetic tape typewriter operator explained was hopefully just for few days. IMPRESSION: Patient demonstrating psychotic symptoms, auditory hallucinations, paranoid delusions and disorganized speech and behavior; patient is certainly internally preoccupied. So far collateral reports that patient has no history of psychosis or bipolar disorder. After gathering collateral from patient's and father, both deny any history of psychosis or sukhdeep were similar such episodes. Both speculate patient may have abused prescription medications including Vyvanse (and reports may have used crack cocaine) accounting for triggering this episode. Frequently substance induced psychosis resolves within 1-2 days (though can also persist for 2 or more weeks); however patient has remained on both Vyvanse and Wellbutrin which could prolonged symptoms (as both can increase dopamine). Will hold both Vyvanse and Wellbutrin. Also started risperidone low-dose to help with dopamine blockade. 06/30 Patient remains with paranoid ideation; refused Risperdal. On inquiry patient said she does not think she needs it but magnetic tape typewriter operator continue to educate patient on medication and she said she would start taking it. Patient with some increase disorganized behaviors today, seen self-dialoguing and responding to internal stimuli at 1 point standing aimlessly in hallway, not moving. Slept only 4 hours -hopefully patient will start taking risperidone 07/01 patient remains with intermittent odd and disorganized behaviors, talking to herself in the wetzel; remains with paranoid ideations however is able to be more logical in conversation and for longer periods of time. Patient's sister visiting who gave history that patient started to a peer to be manic about 5 months ago which correlates to increased Vyvanse dose (hyperactive, rapid speech, little sleep-which patient concurred); patient's sister volunteered that she has schizoaffective disorder and has been on medication which was a surprise to patient but with this news was willing to take Risperdal 07/02 patient doing much better. Patient is more organized in both speech and behavior. Patient did take Risperdal twice yesterday but found it made her tired and did not want it anymore. However she agrees it may have been helpful. Patient for the 1st time able to talk much more logically and accurately about history and shares with magnetic tape typewriter operator that she has been diagnosed with bipolar disorder in the past and was at 1 point on Seroquel around 400 mg and then stabilized on Lamictal 200 mg. Patient said that she had been doing well for so long that her current psychiatric provider agreed to start peeling away her medications and Seroquel was lowered to 100 mg Lamictal tapered down to 50 mg. This taper coincided with patient being started on stimulant medication for ADHD and her Vyvanse was titrated. Patient agrees that it is very possible that the tapering off of Lamictal (she may have been on only Lamictal and not Seroquel for quite awhile) the titration of a stimulant medication is what triggered manic episode which worsened over the past few weeks and included significant paranoid ideations. Patient agrees to get back on Lamictal which caused no side effects. -remains with paranoid ideations about her but they are less intense and patient more open to reality testing; of note patient's does have schizophrenia 07/05 patient continues to be improved, overall organized in speech and behavior able to discuss diagnosis and treatment appropriately 07/06Patient more disorganized doing bizarre, odd hand movements during interview. Patient mimicking/mirroring the hand gestures of whomever is talking; some echolalia as well. Patient remains very vague when discussing her thoughts. Continues to have some paranoid ideations about her however patient's sister does agree that patient's is excessively controlling and for the past 2 years, the sister has noticed that he dictates how long and with whom patient can spend time. Patient struggles to have insight into her behaviors including when they are pointed out in real-time. However she does agree to start perphenazine\ -had discussed risks/side effects of antipsychotics Plan cv q15 Start perphenazine 2 mg b.i.d. Increase Lamictal to 100 mg: Used to be on 200 and has been on 50 mg for months HOLD Wellbutrin 300 mg daily: will monitor for psychosis. HOLD Vyvanse DC risperidone; patient does not like and patient is improved P.R.N. Zyprexa 5mg q.4 hours p.r.n. for agitation/psychosis Seroquel 100 at bedtime. Lamictal 50 mg at bedtime. BuSpar 15 mg twice a day. Lexapro 10mg daily Patient educated on: diagnosis, medication risk/benefits and therapeutic strategies Informed Consent: understands, does not understand and further education needed Reason for continued inpatient stay Substantial Risk for: inability to function Time Spent With Patient Time: Total time managing care of this patient today ____ minutes.
[2025-07-06 20:00] VITALS: BP 135/78; PULSE 58; RESP 16; TEMP 36.1; O2SAT 100
[2025-07-06 22:36] VITALS: BP 130/77
[2025-07-07 07:51] VITALS: BP 127/81; PULSE 91; TEMP 35.6; O2SAT 99
[2025-07-07 19:36] VITALS: BP 123/79; PULSE 81; RESP 16; TEMP 36.4; O2SAT 98
[2025-07-07 20:53] VITALS: BP 123/79
--- NOTE | 2025-07-07 23:19 | HO.PSYCHPN ---
Subjective Subjective Date of Service: 07/07/25 Reason For Visit: Recurrent major depression with psychosis Interim History: Met with patient; discussed with team Patient denies any medications side effects. Continues to have disorganized in behaviors and now hiding in the corners of the hallway throughout the milieu; continues to mirror movements of others with intermittent echolalia. Remains very vague on what he is thinking and keeps saying she is just waiting for it to all come together. . Mental Status Exam Mental Status Exam Narrative: Pt is alert and oriented; behavior is more disorganized and odd than before; odd movements with hands and arms, mirroring and with some echolalia; guarded and superficially cooperative; patient is not in distress; dressed in casual attire with adequate grooming and hygiene; mood is described as good the affect anxious; eye contact appropriate; Speech is normal rate, volume and prosody and not pressured; psychomotor agitation present; thought process is distracted; able to be goal directed; Thought content paranoid ideations; denies any SI/HI. Denies AVH but clearly internally preoccupied Patients insight and judgment impaired Diagnostics Vital Signs (24Hr): Vital Signs - 24 hr 07/07/25 07:51 07/07/25 19:36 07/07/25 20:53 Temperature 96.1 F L 97.5 F Pulse Rate 91 81 Respiratory Rate 16 Blood Pressure 127/81 123/79 123/79 Pulse Oximetry 99 98 Oxygen Delivery Method Room Air Room Air BMI result Body Mass Index 20.9 Labs 06/30/25 07:49 06/30/25 07:49 Medications Medications Current Medications Acetaminophen (Acetaminophen 325 Mg Tablet) 650 mg PO Q6H PRN PRN Reason: Headache/Pain, Scale 1-10 Last Admin: 07/06/25 14:36 Dose: 650 mg Al Hydroxide/Mg Hydroxide (Magnesium Hydrox/Alum Hydrox 30 Ml Oral.Susp) 30 ml PO Q6H PRN PRN Reason: Heartburn/Nausea Buspirone HCl (Buspirone Hcl 5 Mg Tablet) 15 mg PO BID [facility] Last Admin: 07/07/25 20:54 Dose: 15 mg Cyclobenzaprine HCl (Cyclobenzaprine Hcl 10 Mg Tablet) 10 mg PO TID PRN PRN Reason: Muscle Spasm Escitalopram Oxalate (Escitalopram Oxalate 10 Mg Tablet) 10 mg PO DAILY [facility] Last Admin: 07/07/25 08:47 Dose: 10 mg Hydroxyzine HCl (Hydroxyzine Hcl 25 Mg Tablet) 25 mg PO Q6H PRN PRN Reason: mild anxiety Last Admin: 06/29/25 17:08 Dose: 25 mg Ibuprofen (Ibuprofen 600 Mg Tablet) 600 mg PO Q6H PRN PRN Reason: Pain, Severe (Pain Scale 7-10) Last Admin: 07/05/25 13:21 Dose: 600 mg Lamotrigine (Lamotrigine 100 Mg Tablet) 100 mg PO BEDTIME [facility] Last Admin: 07/07/25 20:53 Dose: 100 mg Levothyroxine Sodium (Levothyroxine Sodium 75 Mcg Tablet) 75 mcg PO DAILY@0600 [facility] Last Admin: 07/07/25 06:19 Dose: 75 mcg Lidocaine (Lidocaine 4 % Patch Adh..Patch) 1 patch TRANSDERMA DAILY [facility]; Protocol Last Admin: 07/07/25 08:47 Dose: Not Given Lorazepam (Lorazepam 0.5 Mg Tablet) 0.5 mg PO DAILY PRN PRN Reason: severe anxiety Last Admin: 07/04/25 10:04 Dose: 0.5 mg Magnesium Hydroxide (Milk Of Magnesia 30 Ml Oral.Susp) 30 ml PO DAILY PRN PRN Reason: Constipation Multivitamins/Vitamin C (Multivitamin Tablet) 1 tab PO DAILY [facility] Last Admin: 07/07/25 08:46 Dose: 1 tab Nicotine Polacrilex (Nicotine Polacrilex 2 Mg Gum) 4 mg BUCCAL Q2H PRN PRN Reason: Nicotine Cravings Perphenazine (Perphenazine 2 Mg Tablet) 2 mg PO BID [facility] Last Admin: 07/07/25 20:54 Dose: 2 mg Prazosin HCl (Prazosin Hcl 1 Mg Capsule) 2 mg PO BEDTIME [facility]; Protocol Last Admin: 07/07/25 20:53 Dose: 2 mg Quetiapine Fumarate (Quetiapine Fumarate 100 Mg Tablet) 100 mg PO BEDTIME [facility] Last Admin: 07/07/25 20:53 Dose: 100 mg Risperidone (Risperidone 1 Mg Tablet) 1 mg PO DAILY PRN PRN Reason: disorganized behavior Trazodone HCl (Trazodone Hcl 50 Mg Tablet) 50 mg PO BEDTIME MRX1 PRN PRN Reason: Insomnia Allergies Allergies Allergy/AdvReac Type Severity Reaction Status Date / Time No Known Allergies Allergy Verified 06/24/25 17:49 Assessment & Plan Assessment & Plan (1) Acute psychosis: Status: Acute Code(s): F23 - Brief psychotic disorder (2) Depression: Status: Acute Code(s): F32.A - Depression, unspecified Plan HPI: Pt is a 40 year old female who presented to the ED after being dropped off by a friend . Upon arrival to the ED she appeared increasingly paranoid and indicated that she was fearful she was being drugged by her and voiced concern for her and her children's safety. Pt stated that she wanted to have her medications checked as things are just off, my daily routine is off . Pt provided inconsistent information as evidence by conflicting information from what she disclosed to the ED provider upon arrival and at times appears to be a poor historian as a result of her current presentation. She remained guarded at this time and at times appeared to be minimizing symptoms as well as medication seeking as she remained primarily focused on her controlled substances that she is currently prescribed. It is to be noted. Formulation/clinical reasoning: Increasing psychotic behaviors, paranoid, disorganized thought process. Family members have safety concern regarding patient mental status at this current time. Even the above information, patient will be benefit in restrictive environment, medication management, and refer patient back to outpatient psychiatric services. Hospital course: 06/25/25: Continue with home medications. In my impression, patient may think that she just come here to get refill of her medication and will be sent home. However, other time she also stating that she has not come here for medication change as if she needs a refilled she can get it feel from her OP provider. Ativan 1 mg q.4 hours p.r.n. for severe anxiety. Home dose was only 0.5 b.i.d. p.r.n.. Stimulants: Continue with stimulants, we will monitor if it causing more psychotic behavior. Questioned if patient overused her Adderall information regarding recent weight lost, and be psychotic. 06/26/2025: Continue to encourage medication adherence and engagement. 06/27: accepting medications and requested prazosin 2mg be restarted 06/28 Patient is a limited historian due to disorganized speech and behavior. Throughout interview patient looking off in the distance, sometimes very latent responses, appearing to be internally preoccupied; frequently not finishing sentences, giving cryptic, vague and frequently unrelated responses to discussion questions. Night Shift introduces himself has a doctor... Patient then asks are you a Dr.? I am not a doctor. I am Daphne... On inquiry about why patient came to the hospital, she replies, with speech latency and in broken sentences I came... I wanted medications reviewed... And wanted a toxicology... The unknown.... Things got a little unhinged... The court room... Domestic stuff. Patient goes on I was looking for my medications at my house... Interviews, talking, trying to survive all the time... The reality of things is unclear to me... Of the events. Night Shift asks for clarification to which patient says, again after significant latency, the court house... I just want my Garrett back... (she later clarifies that the Sabine is a multi tool knife). Patient then started to refer to another patient, saying he wants a tape measure... I have one... I can hang out... There is time and things will be revealed... Whenever thing comes together... Family and judges and worldly stuff.. Night Shift asks about her earlier concern that her is poisoning her... Patient remained silent for awhile and then says I checked my meds... When I went to talk to them... I would like to see the toxicology... My back was sweating.. I was questioning reality generally... There was a 911 call... She then told check writer salesperson she questioned the reality of this conversation but could not clarify further but then some something about getting her red ticket.. Regarding how she got to the hospital, patient said officers came to my house and talked to my kids...my daughter called them...since i was not feeling safe.....i know my very well...it just wasnt a good think going on...i wasn't...no...it got real.....im in survival mode...it started getting scary and dangerous...my was getting a little...red flaggs...it started to be an unsafe situation..he [] was not himself... Patient also said that her best friend Stephanie Holder dropped her off at the hospital; not clear how she got here. Patient gave check writer salesperson permission to talk to Stephanie and also to collect information from her . denies drugs or taking her prescribed medications in excess denies hx manic episodes; yes AH but nothing to be alarmed about... Nurse Note by Karon Arora RN 06/25/25 09:54 - This RN spoke to [facility] regarding the situation that led to being present here in the ER. Per [facility] employee, yesterday there was an argument between the patient and her where both her and her received a crisis consult. Per [facility] employee, patient was originally seen by [facility] mobile crisis and it was determined she could go to respite, however, shortly after, crisis was called back to the home and the patient was sent here to the hospital. When the [facility] employee interviewed the pts 14 year old son, he reports that his mom has been acting really paranoid about things as of recently. (daughter 14yo, Son 11yo) 06/29 Patient remains with psychotic symptoms and said she thinks maybe he[] wants to kill or hurt me... Night Shift inquired and patient kept coming back to the fact that he put her home medications in the wrong pill box compartments... and this is what made her think he is trying to kill her... Patient however was willing to entertain that perhaps this might not be true. However, she is significantly more organized today than she was yesterday, talking in full sentences sticking to the topic at hand. She agrees that yesterday she was feeling much more confused she is thinking more clearly today. Patient's father present who has been meeting with her daily since this admission and who agrees that she is significantly better and headed back towards her regular self. Patient agreed to sign a CV and also agreed to have Vyvanse and bupropion discontinued for now; she also agreed to take risperidone which check writer salesperson explained was hopefully just for few days. IMPRESSION: Patient demonstrating psychotic symptoms, auditory hallucinations, paranoid delusions and disorganized speech and behavior; patient is certainly internally preoccupied. So far collateral reports that patient has no history of psychosis or bipolar disorder. After gathering collateral from patient's and father, both deny any history of psychosis or sukhdeep were similar such episodes. Both speculate patient may have abused prescription medications including Vyvanse (and reports may have used crack cocaine) accounting for triggering this episode. Frequently substance induced psychosis resolves within 1-2 days (though can also persist for 2 or more weeks); however patient has remained on both Vyvanse and Wellbutrin which could prolonged symptoms (as both can increase dopamine). Will hold both Vyvanse and Wellbutrin. Also started risperidone low-dose to help with dopamine blockade. 06/30 Patient remains with paranoid ideation; refused Risperdal. On inquiry patient said she does not think she needs it but check writer salesperson continue to educate patient on medication and she said she would start taking it. Patient with some increase disorganized behaviors today, seen self-dialoguing and responding to internal stimuli at 1 point standing aimlessly in hallway, not moving. Slept only 4 hours -hopefully patient will start taking risperidone 07/01 patient remains with intermittent odd and disorganized behaviors, talking to herself in the wetzel; remains with paranoid ideations however is able to be more logical in conversation and for longer periods of time. Patient's sister visiting who gave history that patient started to a peer to be manic about 5 months ago which correlates to increased Vyvanse dose (hyperactive, rapid speech, little sleep-which patient concurred); patient's sister volunteered that she has schizoaffective disorder and has been on medication which was a surprise to patient but with this news was willing to take Risperdal 07/02 patient doing much better. Patient is more organized in both speech and behavior. Patient did take Risperdal twice yesterday but found it made her tired and did not want it anymore. However she agrees it may have been helpful. Patient for the 1st time able to talk much more logically and accurately about history and shares with check writer salesperson that she has been diagnosed with bipolar disorder in the past and was at 1 point on Seroquel around 400 mg and then stabilized on Lamictal 200 mg. Patient said that she had been doing well for so long that her current psychiatric provider agreed to start peeling away her medications and Seroquel was lowered to 100 mg Lamictal tapered down to 50 mg. This taper coincided with patient being started on stimulant medication for ADHD and her Vyvanse was titrated. Patient agrees that it is very possible that the tapering off of Lamictal (she may have been on only Lamictal and not Seroquel for quite awhile) the titration of a stimulant medication is what triggered manic episode which worsened over the past few weeks and included significant paranoid ideations. Patient agrees to get back on Lamictal which caused no side effects. -remains with paranoid ideations about her but they are less intense and patient more open to reality testing; of note patient's does have schizophrenia 07/05 patient continues to be improved, overall organized in speech and behavior able to discuss diagnosis and treatment appropriately 07/06Patient more disorganized doing bizarre, odd hand movements during interview. Patient mimicking/mirroring the hand gestures of whomever is talking; some echolalia as well. Patient remains very vague when discussing her thoughts. Continues to have some paranoid ideations about her however patient's sister does agree that patient's is excessively controlling and for the past 2 years, the sister has noticed that he dictates how long and with whom patient can spend time. Patient struggles to have insight into her behaviors including when they are pointed out in real-time. However she does agree to start perphenazine\ -had discussed risks/side effects of antipsychotics 07/07 Patient denies any medications side effects. Continues to have disorganized in behaviors and now hiding in the corners of the hallway throughout the milieu; continues to mirror movements of others with intermittent echolalia. Remains very vague on what he is thinking and keeps saying she is just waiting for it to all come together. Plan cv q15 Start perphenazine 2 mg tid Increase Lamictal to 100 mg: Used to be on 200 and has been on 50 mg for months HOLD Wellbutrin 300 mg daily: will monitor for psychosis. HOLD Stephan CHÁVEZ risperidone; patient does not like and patient is improved P.R.N. Zyprexa 5mg q.4 hours p.r.n. for agitation/psychosis Seroquel 100 at bedtime. Lamictal 50 mg at bedtime. BuSpar 15 mg twice a day. Lexapro 10mg daily Patient educated on: diagnosis, medication risk/benefits and therapeutic strategies Informed Consent: understands, does not understand and further education needed Reason for continued inpatient stay Substantial Risk for: inability to function Time Spent With Patient Time: Total time managing care of this patient today ____ minutes.
[2025-07-08 07:00] VITALS: BMI 20.8
[2025-07-08 08:00] VITALS: BP 132/71; PULSE 88; TEMP 36.1; O2SAT 100
[2025-07-08 20:00] VITALS: BP 127/75; PULSE 83; RESP 16; TEMP 36.7; O2SAT 100
[2025-07-08 22:07] VITALS: BP 115/63
--- NOTE | 2025-07-08 22:49 | HO.PSYCHPN ---
Subjective Subjective Date of Service: 07/08/25 Reason For Visit: Recurrent major depression with psychosis Interim History: Met with patient; discussed with team Patient Increasingly disorganized; standing in the corner for hours, peering around it into the milieu, not talking. Patient guarded on approach. Initially refused perphenazine but was willing to discuss it with personal lines underwriter and patient said she does not feel like herself and hoped that the medication would help repair that. Patient agreed to increasing perphenazine to 4 mg t.i.d. Mental Status Exam Mental Status Exam Narrative: Pt is alert and oriented; behavior is disorganized, odd, standing in the corner for hours, peering around it into the milieu; odd movements with hands and arms; guarded and superficially cooperative; patient is not in distress; dressed in casual attire with adequate grooming and hygiene; mood is described as I do not feel like myself and affect congruent, anxious; eye contact appropriate; Speech is normal rate, volume and prosody and not pressured; psychomotor agitation present; thought process is distracted; able to be goal directed; Thought content paranoid ideations; denies any SI/HI. Denies AVH but clearly internally preoccupied Patients insight and judgment impaired Diagnostics Vital Signs (24Hr): Vital Signs - 24 hr 07/08/25 08:00 07/08/25 20:00 07/08/25 22:07 Temperature 97 F 98.1 F Pulse Rate 88 83 Respiratory Rate 16 Blood Pressure 132/71 127/75 115/63 Pulse Oximetry 100 100 Oxygen Delivery Method Room Air Room Air BMI result Body Mass Index 20.8 Labs 06/30/25 07:49 06/30/25 07:49 Medications Medications Current Medications Acetaminophen (Acetaminophen 325 Mg Tablet) 650 mg PO Q6H PRN PRN Reason: Headache/Pain, Scale 1-10 Last Admin: 07/06/25 14:36 Dose: 650 mg Al Hydroxide/Mg Hydroxide (Magnesium Hydrox/Alum Hydrox 30 Ml Oral.Susp) 30 ml PO Q6H PRN PRN Reason: Heartburn/Nausea Buspirone HCl (Buspirone Hcl 5 Mg Tablet) 15 mg PO BID RATNA Last Admin: 07/08/25 22:08 Dose: 15 mg Cyclobenzaprine HCl (Cyclobenzaprine Hcl 10 Mg Tablet) 10 mg PO TID PRN PRN Reason: Muscle Spasm Escitalopram Oxalate (Escitalopram Oxalate 10 Mg Tablet) 10 mg PO DAILY [facility] Last Admin: 07/08/25 09:01 Dose: 10 mg Hydroxyzine HCl (Hydroxyzine Hcl 25 Mg Tablet) 25 mg PO Q6H PRN PRN Reason: mild anxiety Last Admin: 06/29/25 17:08 Dose: 25 mg Ibuprofen (Ibuprofen 600 Mg Tablet) 600 mg PO Q6H PRN PRN Reason: Pain, Severe (Pain Scale 7-10) Last Admin: 07/05/25 13:21 Dose: 600 mg Lamotrigine (Lamotrigine 100 Mg Tablet) 100 mg PO BEDTIME [facility] Last Admin: 07/08/25 22:07 Dose: 100 mg Levothyroxine Sodium (Levothyroxine Sodium 75 Mcg Tablet) 75 mcg PO DAILY@0600 [facility] Last Admin: 07/08/25 06:44 Dose: 75 mcg Lidocaine (Lidocaine 4 % Patch Adh..Patch) 1 patch TRANSDERMA DAILY [facility]; Protocol Last Admin: 07/08/25 09:05 Dose: Not Given Lorazepam (Lorazepam 0.5 Mg Tablet) 0.5 mg PO DAILY PRN PRN Reason: severe anxiety Last Admin: 07/04/25 10:04 Dose: 0.5 mg Magnesium Hydroxide (Milk Of Magnesia 30 Ml Oral.Susp) 30 ml PO DAILY PRN PRN Reason: Constipation Multivitamins/Vitamin C (Multivitamin Tablet) 1 tab PO DAILY [facility] Last Admin: 07/08/25 09:01 Dose: 1 tab Nicotine Polacrilex (Nicotine Polacrilex 2 Mg Gum) 4 mg BUCCAL Q2H PRN PRN Reason: Nicotine Cravings Perphenazine (Perphenazine 4 Mg Tablet) 4 mg PO TID [facility] Last Admin: 07/08/25 22:07 Dose: 4 mg Prazosin HCl (Prazosin Hcl 1 Mg Capsule) 2 mg PO BEDTIME [facility]; Protocol Last Admin: 07/08/25 22:07 Dose: 2 mg Quetiapine Fumarate (Quetiapine Fumarate 100 Mg Tablet) 100 mg PO BEDTIME [facility] Last Admin: 07/08/25 22:07 Dose: 100 mg Risperidone (Risperidone 1 Mg Tablet) 1 mg PO DAILY PRN PRN Reason: disorganized behavior Trazodone HCl (Trazodone Hcl 50 Mg Tablet) 50 mg PO BEDTIME MRX1 PRN PRN Reason: Insomnia Allergies Allergies Allergy/AdvReac Type Severity Reaction Status Date / Time No Known Allergies Allergy Verified 06/24/25 17:49 Assessment & Plan Assessment & Plan (1) Schizoaffective disorder, bipolar type: Status: Acute Code(s): F25.0 - Schizoaffective disorder, bipolar type (2) Depression: Status: Acute Code(s): F32.A - Depression, unspecified Plan HPI: Pt is a 40 year old female who presented to the ED after being dropped off by a friend . Upon arrival to the ED she appeared increasingly paranoid and indicated that she was fearful she was being drugged by her and voiced concern for her and her children's safety. Pt stated that she wanted to have her medications checked as things are just off, my daily routine is off . Pt provided inconsistent information as evidence by conflicting information from what she disclosed to the ED provider upon arrival and at times appears to be a poor historian as a result of her current presentation. She remained guarded at this time and at times appeared to be minimizing symptoms as well as medication seeking as she remained primarily focused on her controlled substances that she is currently prescribed. It is to be noted. Formulation/clinical reasoning: Increasing psychotic behaviors, paranoid, disorganized thought process. Family members have safety concern regarding patient mental status at this current time. Even the above information, patient will be benefit in restrictive environment, medication management, and refer patient back to outpatient psychiatric services. Hospital course: 06/25/25: Continue with home medications. In my impression, patient may think that she just come here to get refill of her medication and will be sent home. However, other time she also stating that she has not come here for medication change as if she needs a refilled she can get it feel from her OP provider. Ativan 1 mg q.4 hours p.r.n. for severe anxiety. Home dose was only 0.5 b.i.d. p.r.n.. Stimulants: Continue with stimulants, we will monitor if it causing more psychotic behavior. Questioned if patient overused her Adderall information regarding recent weight lost, and be psychotic. 06/26/2025: Continue to encourage medication adherence and engagement. 06/27: accepting medications and requested prazosin 2mg be restarted 06/28 Patient is a limited historian due to disorganized speech and behavior. Throughout interview patient looking off in the distance, sometimes very latent responses, appearing to be internally preoccupied; frequently not finishing sentences, giving cryptic, vague and frequently unrelated responses to discussion questions. [employer] introduces himself has a doctor... Patient then asks are you a Dr.? I am not a doctor. I am Daphne... On inquiry about why patient came to the hospital, she replies, with speech latency and in broken sentences I came... I wanted medications reviewed... And wanted a toxicology... The unknown.... Things got a little unhinged... The court room... Domestic stuff. Patient goes on I was looking for my medications at my house... Interviews, talking, trying to survive all the time... The reality of things is unclear to me... Of the events. [employer] asks for clarification to which patient says, again after significant latency, the court house... I just want my Garrett back... (she later clarifies that the Dagmar is a multi tool knife). Patient then started to refer to another patient, saying he wants a tape measure... I have one... I can hang out... There is time and things will be revealed... Whenever thing comes together... Family and judges and worldly stuff.. [employer] asks about her earlier concern that her is poisoning her... Patient remained silent for awhile and then says I checked my meds... When I went to talk to them... I would like to see the toxicology... My back was sweating.. I was questioning reality generally... There was a 911 call... She then told personal lines underwriter she questioned the reality of this conversation but could not clarify further but then some something about getting her red ticket.. Regarding how she got to the hospital, patient said officers came to my house and talked to my kids...my daughter called them...since i was not feeling safe.....i know my very well...it just wasnt a good think going on...i wasn't...no...it got real.....im in survival mode...it started getting scary and dangerous...my was getting a little...red flaggs...it started to be an unsafe situation..he [] was not himself... Patient also said that her best friend Stephanie Holder dropped her off at the hospital; not clear how she got here. Patient gave personal lines underwriter permission to talk to Stephanie and also to collect information from her . denies drugs or taking her prescribed medications in excess denies hx manic episodes; yes AH but nothing to be alarmed about... Nurse Note by Karon Arora RN 06/25/25 09:54 - This RN spoke to [facility] regarding the situation that led to being present here in the ER. Per [facility] employee, yesterday there was an argument between the patient and her where both her and her received a crisis consult. Per [facility] employee, patient was originally seen by [facility] crisis and it was determined she could go to respite, however, shortly after, crisis was called back to the home and the patient was sent here to the hospital. When the [facility] employee interviewed the pts 14 year old son, he reports that his mom has been acting really paranoid about things as of recently. (daughter 14yo, Son 11yo) 06/29 Patient remains with psychotic symptoms and said she thinks maybe he[] wants to kill or hurt me... [employer] inquired and patient kept coming back to the fact that he put her home medications in the wrong pill box compartments... and this is what made her think he is trying to kill her... Patient however was willing to entertain that perhaps this might not be true. However, she is significantly more organized today than she was yesterday, talking in full sentences sticking to the topic at hand. She agrees that yesterday she was feeling much more confused she is thinking more clearly today. Patient's father present who has been meeting with her daily since this admission and who agrees that she is significantly better and headed back towards her regular self. Patient agreed to sign a CV and also agreed to have Vyvanse and bupropion discontinued for now; she also agreed to take risperidone which personal lines underwriter explained was hopefully just for few days. IMPRESSION: Patient demonstrating psychotic symptoms, auditory hallucinations, paranoid delusions and disorganized speech and behavior; patient is certainly internally preoccupied. So far collateral reports that patient has no history of psychosis or bipolar disorder. After gathering collateral from patient's and father, both deny any history of psychosis or sukhdeep were similar such episodes. Both speculate patient may have abused prescription medications including Vyvanse (and reports may have used crack cocaine) accounting for triggering this episode. Frequently substance induced psychosis resolves within 1-2 days (though can also persist for 2 or more weeks); however patient has remained on both Vyvanse and Wellbutrin which could prolonged symptoms (as both can increase dopamine). Will hold both Vyvanse and Wellbutrin. Also started risperidone low-dose to help with dopamine blockade. 06/30 Patient remains with paranoid ideation; refused Risperdal. On inquiry patient said she does not think she needs it but personal lines underwriter continue to educate patient on medication and she said she would start taking it. Patient with some increase disorganized behaviors today, seen self-dialoguing and responding to internal stimuli at 1 point standing aimlessly in hallway, not moving. Slept only 4 hours -hopefully patient will start taking risperidone 07/01 patient remains with intermittent odd and disorganized behaviors, talking to herself in the wetzel; remains with paranoid ideations however is able to be more logical in conversation and for longer periods of time. Patient's sister visiting who gave history that patient started to a peer to be manic about 5 months ago which correlates to increased Vyvanse dose (hyperactive, rapid speech, little sleep-which patient concurred); patient's sister volunteered that she has schizoaffective disorder and has been on medication which was a surprise to patient but with this news was willing to take Risperdal 07/02 patient doing much better. Patient is more organized in both speech and behavior. Patient did take Risperdal twice yesterday but found it made her tired and did not want it anymore. However she agrees it may have been helpful. Patient for the 1st time able to talk much more logically and accurately about history and shares with personal lines underwriter that she has been diagnosed with bipolar disorder in the past and was at 1 point on Seroquel around 400 mg and then stabilized on Lamictal 200 mg. Patient said that she had been doing well for so long that her current psychiatric provider agreed to start peeling away her medications and Seroquel was lowered to 100 mg Lamictal tapered down to 50 mg. This taper coincided with patient being started on stimulant medication for ADHD and her Vyvanse was titrated. Patient agrees that it is very possible that the tapering off of Lamictal (she may have been on only Lamictal and not Seroquel for quite awhile) the titration of a stimulant medication is what triggered manic episode which worsened over the past few weeks and included significant paranoid ideations. Patient agrees to get back on Lamictal which caused no side effects. -remains with paranoid ideations about her but they are less intense and patient more open to reality testing; of note patient's does have schizophrenia 07/05 patient continues to be improved, overall organized in speech and behavior able to discuss diagnosis and treatment appropriately 07/06Patient more disorganized doing bizarre, odd hand movements during interview. Patient mimicking/mirroring the hand gestures of whomever is talking; some echolalia as well. Patient remains very vague when discussing her thoughts. Continues to have some paranoid ideations about her however patient's sister does agree that patient's is excessively controlling and for the past 2 years, the sister has noticed that he dictates how long and with whom patient can spend time. Patient struggles to have insight into her behaviors including when they are pointed out in real-time. However she does agree to start perphenazine\ -had discussed risks/side effects of antipsychotics 07/07 Patient denies any medications side effects. Continues to have disorganized in behaviors and now hiding in the corners of the hallway throughout the milieu; continues to mirror movements of others with intermittent echolalia. Remains very vague on what he is thinking and keeps saying she is just waiting for it to all come together. 07/08 Patient Increasingly disorganized; standing in the corner for hours, peering around it into the milieu, not talking. Patient guarded on approach. Initially refused perphenazine but was willing to discuss it with personal lines underwriter and patient said she does not feel like herself and hoped that the medication would help repair that. Patient agreed to increasing perphenazine to 4 mg t.i.d. -regarding diagnosis, patient has past diagnosis of bipolar disorder which reportedly was treated with Lamictal and before that Seroquel. Patient is not particularly manic but is definitely with psychotic symptoms. Will provisionally change diagnosis to schizoaffective disorder Plan CV q15 Increase to Perphenazine 4 mg t.i.d. (increased from 2 mg t.i.d.) Increase Lamictal to 100 mg: Used to be on 200 and has been on 50 mg for months HOLD Wellbutrin 300 mg daily: will monitor for psychosis. HOLD Stephan CHÁVEZ risperidone; patient does not like and patient is improved P.R.N. Zyprexa 5mg q.4 hours p.r.n. for agitation/psychosis Seroquel 100 at bedtime for sleep Lamictal 50 mg at bedtime. BuSpar 15 mg twice a day. Lexapro 10mg daily Patient educated on: medication risk/benefits and therapeutic strategies Informed Consent: understands, does not understand and further education needed Reason for continued inpatient stay Substantial Risk for: inability to function Time Spent With Patient Time: Total time managing care of this patient today ____ minutes.
[2025-07-09 08:13] VITALS: BP 115/61; PULSE 104; RESP 16; TEMP 36.9; O2SAT 100
--- NOTE | 2025-07-09 14:40 | HO.PSYCHPN ---
Subjective Subjective Date of Service: 07/09/25 Reason For Visit: Recurrent major depression with psychosis Interim History: Met with patient; discussed with team Patient has been taking increased dose of perphenazine. Still odd but less so and seems to be more organized. Still with limited insight but reports she is feeling better and more like herself though can not specifically articulate why. Patient said she had a good talk with her daughter which was helpful; also talked with the telling him she wants to separate which she said was a long time coming Mental Status Exam Mental Status Exam Narrative: Pt is alert and oriented; behavior is a little less disorganized, odd; still standing in the corner at times, but for much less time is now a little more social with select peers; still somewhat guarded and superficially cooperative; patient is not in distress; dressed in casual attire with adequate grooming and hygiene; mood is described as better and affect congruent, more calm; eye contact appropriate; Speech is normal rate, volume and prosody and not pressured; some psychomotor agitation present; thought process is distracted but more goal directed; Thought content vague, still some paranoid ideations; denies any SI/HI. Denies AVH but intermittently internally preoccupied. Patients insight and judgment impaired Diagnostics Vital Signs (24Hr): Vital Signs - 24 hr 07/08/25 20:00 07/08/25 22:07 07/09/25 08:13 Temperature 98.1 F 98.4 F Pulse Rate 83 104 H Respiratory Rate 16 16 Blood Pressure 127/75 115/63 115/61 Pulse Oximetry 100 100 Oxygen Delivery Method Room Air Room Air BMI result Body Mass Index 20.8 Labs 06/30/25 07:49 06/30/25 07:49 Medications Medications Current Medications Acetaminophen (Acetaminophen 325 Mg Tablet) 650 mg PO Q6H PRN PRN Reason: Headache/Pain, Scale 1-10 Last Admin: 07/06/25 14:36 Dose: 650 mg Al Hydroxide/Mg Hydroxide (Magnesium Hydrox/Alum Hydrox 30 Ml Oral.Susp) 30 ml PO Q6H PRN PRN Reason: Heartburn/Nausea Buspirone HCl (Buspirone Hcl 5 Mg Tablet) 15 mg PO BID RATNA Last Admin: 07/09/25 08:15 Dose: 15 mg Cyclobenzaprine HCl (Cyclobenzaprine Hcl 10 Mg Tablet) 10 mg PO TID PRN PRN Reason: Muscle Spasm Escitalopram Oxalate (Escitalopram Oxalate 10 Mg Tablet) 10 mg PO DAILY [facility] Last Admin: 07/09/25 08:15 Dose: 10 mg Hydroxyzine HCl (Hydroxyzine Hcl 25 Mg Tablet) 25 mg PO Q6H PRN PRN Reason: mild anxiety Last Admin: 06/29/25 17:08 Dose: 25 mg Ibuprofen (Ibuprofen 600 Mg Tablet) 600 mg PO Q6H PRN PRN Reason: Pain, Severe (Pain Scale 7-10) Last Admin: 07/05/25 13:21 Dose: 600 mg Lamotrigine (Lamotrigine 25 Mg Tablet) 125 mg PO BEDTIME [facility] Levothyroxine Sodium (Levothyroxine Sodium 75 Mcg Tablet) 75 mcg PO DAILY@0600 [facility] Last Admin: 07/09/25 06:51 Dose: 75 mcg Lidocaine HCl (Lidocaine 4 % Cream Kit) 1 appl TOPICAL ONCE PRN; Protocol PRN Reason: lower back pain Lorazepam (Lorazepam 0.5 Mg Tablet) 0.5 mg PO DAILY PRN PRN Reason: severe anxiety Last Admin: 07/04/25 10:04 Dose: 0.5 mg Magnesium Hydroxide (Milk Of Magnesia 30 Ml Oral.Susp) 30 ml PO DAILY PRN PRN Reason: Constipation Multivitamins/Vitamin C (Multivitamin Tablet) 1 tab PO DAILY [facility] Last Admin: 07/09/25 08:16 Dose: 1 tab Nicotine Polacrilex (Nicotine Polacrilex 2 Mg Gum) 4 mg BUCCAL Q2H PRN PRN Reason: Nicotine Cravings Perphenazine (Perphenazine 4 Mg Tablet) 4 mg PO TID [facility] Last Admin: 07/09/25 08:15 Dose: 4 mg Prazosin HCl (Prazosin Hcl 1 Mg Capsule) 2 mg PO BEDTIME RATNA; Protocol Last Admin: 07/08/25 22:07 Dose: 2 mg Quetiapine Fumarate (Quetiapine Fumarate 100 Mg Tablet) 100 mg PO BEDTIME [facility] Last Admin: 07/08/25 22:07 Dose: 100 mg Risperidone (Risperidone 1 Mg Tablet) 1 mg PO DAILY PRN PRN Reason: disorganized behavior Trazodone HCl (Trazodone Hcl 50 Mg Tablet) 50 mg PO BEDTIME MRX1 PRN PRN Reason: Insomnia Allergies Allergies Allergy/AdvReac Type Severity Reaction Status Date / Time No Known Allergies Allergy Verified 06/24/25 17:49 Assessment & Plan Assessment & Plan (1) Schizoaffective disorder, bipolar type: Status: Acute Code(s): F25.0 - Schizoaffective disorder, bipolar type (2) Depression: Status: Acute Code(s): F32.A - Depression, unspecified Plan HPI: Pt is a 40 year old female who presented to the ED after being dropped off by a friend . Upon arrival to the ED she appeared increasingly paranoid and indicated that she was fearful she was being drugged by her and voiced concern for her and her children's safety. Pt stated that she wanted to have her medications checked as things are just off, my daily routine is off . Pt provided inconsistent information as evidence by conflicting information from what she disclosed to the ED provider upon arrival and at times appears to be a poor historian as a result of her current presentation. She remained guarded at this time and at times appeared to be minimizing symptoms as well as medication seeking as she remained primarily focused on her controlled substances that she is currently prescribed. It is to be noted. Formulation/clinical reasoning: Increasing psychotic behaviors, paranoid, disorganized thought process. Family members have safety concern regarding patient mental status at this current time. Even the above information, patient will be benefit in restrictive environment, medication management, and refer patient back to outpatient psychiatric services. Hospital course: 06/25/25: Continue with home medications. In my impression, patient may think that she just come here to get refill of her medication and will be sent home. However, other time she also stating that she has not come here for medication change as if she needs a refilled she can get it feel from her OP provider. Ativan 1 mg q.4 hours p.r.n. for severe anxiety. Home dose was only 0.5 b.i.d. p.r.n.. Stimulants: Continue with stimulants, we will monitor if it causing more psychotic behavior. Questioned if patient overused her Adderall information regarding recent weight lost, and be psychotic. 06/26/2025: Continue to encourage medication adherence and engagement. 06/27: accepting medications and requested prazosin 2mg be restarted 06/28 Patient is a limited historian due to disorganized speech and behavior. Throughout interview patient looking off in the distance, sometimes very latent responses, appearing to be internally preoccupied; frequently not finishing sentences, giving cryptic, vague and frequently unrelated responses to discussion questions. Account Retention Representative introduces himself has a doctor... Patient then asks are you a Dr.? I am not a doctor. I am Daphne... On inquiry about why patient came to the hospital, she replies, with speech latency and in broken sentences I came... I wanted medications reviewed... And wanted a toxicology... The unknown.... Things got a little unhinged... The court room... Domestic stuff. Patient goes on I was looking for my medications at my house... Interviews, talking, trying to survive all the time... The reality of things is unclear to me... Of the events. Account Retention Representative asks for clarification to which patient says, again after significant latency, the court house... I just want my Garrett back... (she later clarifies that the Garrett is a multi tool knife). Patient then started to refer to another patient, saying he wants a tape measure... I have one... I can hang out... There is time and things will be revealed... Whenever thing comes together... Family and judges and worldly stuff.. Account Retention Representative asks about her earlier concern that her is poisoning her... Patient remained silent for awhile and then says I checked my meds... When I went to talk to them... I would like to see the toxicology... My back was sweating.. I was questioning reality generally... There was a 911 call... She then told investigative writer she questioned the reality of this conversation but could not clarify further but then some something about getting her red ticket.. Regarding how she got to the hospital, patient said officers came to my house and talked to my kids...my daughter called them...since i was not feeling safe.....i know my very well...it just wasnt a good think going on...i wasn't...no...it got real.....im in survival mode...it started getting scary and dangerous...my was getting a little...red flaggs...it started to be an unsafe situation..he [] was not himself... Patient also said that her best friend Stephanie Holder dropped her off at the hospital; not clear how she got here. Patient gave investigative writer permission to talk to Stephanie and also to collect information from her . denies drugs or taking her prescribed medications in excess denies hx manic episodes; yes AH but nothing to be alarmed about... Nurse Note by Karon Arora RN 06/25/25 09:54 - This RN spoke to [facility] regarding the situation that led to being present here in the ER. Per [facility] employee, yesterday there was an argument between the patient and her where both her and her received a crisis consult. Per [facility] employee, patient was originally seen by [facility] mobile crisis and it was determined she could go to respite, however, shortly after, crisis was called back to the home and the patient was sent here to the hospital. When the [facility] employee interviewed the pts 14 year old son, he reports that his mom has been acting really paranoid about things as of recently. (daughter 14yo, Son 11yo) 06/29 Patient remains with psychotic symptoms and said she thinks maybe he[] wants to kill or hurt me... Account Retention Representative inquired and patient kept coming back to the fact that he put her home medications in the wrong pill box compartments... and this is what made her think he is trying to kill her... Patient however was willing to entertain that perhaps this might not be true. However, she is significantly more organized today than she was yesterday, talking in full sentences sticking to the topic at hand. She agrees that yesterday she was feeling much more confused she is thinking more clearly today. Patient's father present who has been meeting with her daily since this admission and who agrees that she is significantly better and headed back towards her regular self. Patient agreed to sign a CV and also agreed to have Vyvanse and bupropion discontinued for now; she also agreed to take risperidone which investigative writer explained was hopefully just for few days. IMPRESSION: Patient demonstrating psychotic symptoms, auditory hallucinations, paranoid delusions and disorganized speech and behavior; patient is certainly internally preoccupied. So far collateral reports that patient has no history of psychosis or bipolar disorder. After gathering collateral from patient's and father, both deny any history of psychosis or sukhdeep were similar such episodes. Both speculate patient may have abused prescription medications including Vyvanse (and reports may have used crack cocaine) accounting for triggering this episode. Frequently substance induced psychosis resolves within 1-2 days (though can also persist for 2 or more weeks); however patient has remained on both Vyvanse and Wellbutrin which could prolonged symptoms (as both can increase dopamine). Will hold both Vyvanse and Wellbutrin. Also started risperidone low-dose to help with dopamine blockade. 06/30 Patient remains with paranoid ideation; refused Risperdal. On inquiry patient said she does not think she needs it but investigative writer continue to educate patient on medication and she said she would start taking it. Patient with some increase disorganized behaviors today, seen self-dialoguing and responding to internal stimuli at 1 point standing aimlessly in hallway, not moving. Slept only 4 hours -hopefully patient will start taking risperidone 07/01 patient remains with intermittent odd and disorganized behaviors, talking to herself in the wetzel; remains with paranoid ideations however is able to be more logical in conversation and for longer periods of time. Patient's sister visiting who gave history that patient started to a peer to be manic about 5 months ago which correlates to increased Vyvanse dose (hyperactive, rapid speech, little sleep-which patient concurred); patient's sister volunteered that she has schizoaffective disorder and has been on medication which was a surprise to patient but with this news was willing to take Risperdal 07/02 patient doing much better. Patient is more organized in both speech and behavior. Patient did take Risperdal twice yesterday but found it made her tired and did not want it anymore. However she agrees it may have been helpful. Patient for the 1st time able to talk much more logically and accurately about history and shares with investigative writer that she has been diagnosed with bipolar disorder in the past and was at 1 point on Seroquel around 400 mg and then stabilized on Lamictal 200 mg. Patient said that she had been doing well for so long that her current psychiatric provider agreed to start peeling away her medications and Seroquel was lowered to 100 mg Lamictal tapered down to 50 mg. This taper coincided with patient being started on stimulant medication for ADHD and her Vyvanse was titrated. Patient agrees that it is very possible that the tapering off of Lamictal (she may have been on only Lamictal and not Seroquel for quite awhile) the titration of a stimulant medication is what triggered manic episode which worsened over the past few weeks and included significant paranoid ideations. Patient agrees to get back on Lamictal which caused no side effects. -remains with paranoid ideations about her but they are less intense and patient more open to reality testing; of note patient's does have schizophrenia 07/05 patient continues to be improved, overall organized in speech and behavior able to discuss diagnosis and treatment appropriately 07/06Patient more disorganized doing bizarre, odd hand movements during interview. Patient mimicking/mirroring the hand gestures of whomever is talking; some echolalia as well. Patient remains very vague when discussing her thoughts. Continues to have some paranoid ideations about her however patient's sister does agree that patient's is excessively controlling and for the past 2 years, the sister has noticed that he dictates how long and with whom patient can spend time. Patient struggles to have insight into her behaviors including when they are pointed out in real-time. However she does agree to start perphenazine\ -had discussed risks/side effects of antipsychotics 07/07 Patient denies any medications side effects. Continues to have disorganized in behaviors and now hiding in the corners of the hallway throughout the milieu; continues to mirror movements of others with intermittent echolalia. Remains very vague on what he is thinking and keeps saying she is just waiting for it to all come together. 07/08 Patient Increasingly disorganized; standing in the corner for hours, peering around it into the milieu, not talking. Patient guarded on approach. Initially refused perphenazine but was willing to discuss it with investigative writer and patient said she does not feel like herself and hoped that the medication would help repair that. Patient agreed to increasing perphenazine to 4 mg t.i.d. -regarding diagnosis, patient has past diagnosis of bipolar disorder which reportedly was treated with Lamictal and before that Seroquel. Patient is not particularly manic but is definitely with psychotic symptoms. Will provisionally change diagnosis to schizoaffective disorder 07/09 little better today with increased dose of perphenazine which patient has been taking. She denies medication side effects and agrees that medications are helpful Still odd but less so and seems to be more organized. Still with limited insight but reports she is feeling better and more like herself though can not specifically articulate why. Patient said she had a good talk with her daughter which was helpful; also talked with the telling him she wants to separate which she said was a long time coming -seems that perphenazine is helping; will continue Plan CV q15 Continue Perphenazine 4 mg t.i.d. (increased from 2 mg t.i.d.) Increased Lamictal to 125 mg: Used to be on 200 and has been on 50 mg for months HOLD Wellbutrin 300 mg daily: will monitor for psychosis. HOLD Stephan CHÁVEZ risperidone; patient does not like and patient is improved P.R.N. Zyprexa 5mg q.4 hours p.r.n. for agitation/psychosis Seroquel 100 at bedtime for sleep Lamictal 50 mg at bedtime. BuSpar 15 mg twice a day. Lexapro 10mg daily Patient educated on: diagnosis, medication risk/benefits and therapeutic strategies Informed Consent: understands, does not understand and further education needed Reason for continued inpatient stay Substantial Risk for: inability to function Time Spent With Patient Time: Total time managing care of this patient today ____ minutes.
[2025-07-09 20:00] VITALS: BP 133/72; PULSE 82; RESP 15; TEMP 37; O2SAT 100
[2025-07-10 08:21] VITALS: BP 115/73; PULSE 85; RESP 16; TEMP 36.7; O2SAT 100
[2025-07-10] MEDS: Lidocaine 4 % Cream KIT 1 APPL TOPICAL ×2 (08:41→16:45)
--- NOTE | 2025-07-10 12:30 | HO.PSYCHPN ---
Subjective Subjective Date of Service: 07/10/25 Reason For Visit: Recurrent major depression with psychosis Interim History: Met with patient; discussed with team; Patient agitated on the unit today and yelling in the hallway. Die Cast Operator discussed this with patient who expresses concern about her being with her children. pt says she gave him bad news about their marriage and is worried about his mental state. She says he has had hallucinated/paranoid delusions about their son, a few years ago. Today, she can not say what he did or said that worried her...other than vague references to his composure...reactions...like he's not in touch with reality... But with no specifics...She agrees perhaps he could just be anxious... She also says she believes he has been unmedicated for a long time She then told her senior underwriter that Juan Miguel [son] talks in code to me, like I asked 'what are you wearing to school today...' and he said 'my pink Allan shirt tomorrow...' but he does not have a pink allan shirt, which means he's talking to me in code... She said this exchange happened the week prior to this admission and that he is talking in code her so his father will not know. Patient then showed senior underwriter a picture her son made which her brought in for her during this visit; she insisted him doing so was manipulative though senior underwriter could not understand why; patient showed senior underwriter a letter her wrote to her which was generally about how he is hoping for her and he wished to get help her. Patient says she thinks it is weird though senior underwriter could not understand why. After this encounter with her , she l called PD for wellness check on son; check was completed and PD informed her that her son is OK. She signed a 3 day notice increase perhphenazine to 18mg total daily dose and changed bulk to bedtime since pt says afternoon dose sedating Mental Status Exam Mental Status Exam Narrative: Pt is alert and oriented; behavior is a little less odd and she appears more naturally social in the milieu; sometimes stands in the corner but less so; talking a little more freely about her thoughts; patient is not in distress; dressed in casual attire with adequate grooming and hygiene; mood is described as good and affect congruent, brighter more calm; eye contact appropriate; Speech is normal rate, volume and prosody and not pressured; some intermittent psychomotor agitation present; thought process is more linear; Thought content is on paranoid ideations; denies any SI/HI. Denies AVH but intermittently internally preoccupied. Patients insight and judgment impaired Diagnostics Vital Signs (24Hr): Vital Signs - 24 hr 07/09/25 20:00 07/10/25 08:21 Temperature 98.6 F 98.1 F Pulse Rate 82 85 Respiratory Rate 15 16 Blood Pressure 133/72 115/73 Pulse Oximetry 100 100 Oxygen Delivery Method Room Air BMI result Body Mass Index 20.8 Labs 06/30/25 07:49 06/30/25 07:49 Medications Medications Current Medications Acetaminophen (Acetaminophen 325 Mg Tablet) 650 mg PO Q6H PRN PRN Reason: Headache/Pain, Scale 1-10 Last Admin: 07/06/25 14:36 Dose: 650 mg Al Hydroxide/Mg Hydroxide (Magnesium Hydrox/Alum Hydrox 30 Ml Oral.Susp) 30 ml PO Q6H PRN PRN Reason: Heartburn/Nausea Buspirone HCl (Buspirone Hcl 5 Mg Tablet) 15 mg PO BID [facility] Last Admin: 07/10/25 08:42 Dose: 15 mg Cyclobenzaprine HCl (Cyclobenzaprine Hcl 10 Mg Tablet) 10 mg PO TID PRN PRN Reason: Muscle Spasm Escitalopram Oxalate (Escitalopram Oxalate 10 Mg Tablet) 10 mg PO DAILY [facility] Last Admin: 07/10/25 08:41 Dose: 10 mg Hydroxyzine HCl (Hydroxyzine Hcl 25 Mg Tablet) 25 mg PO Q6H PRN PRN Reason: mild anxiety Last Admin: 06/29/25 17:08 Dose: 25 mg Ibuprofen (Ibuprofen 600 Mg Tablet) 600 mg PO Q6H PRN PRN Reason: Pain, Severe (Pain Scale 7-10) Last Admin: 07/05/25 13:21 Dose: 600 mg Lamotrigine (Lamotrigine 25 Mg Tablet) 125 mg PO BEDTIME [facility] Last Admin: 07/09/25 20:38 Dose: 125 mg Levothyroxine Sodium (Levothyroxine Sodium 75 Mcg Tablet) 75 mcg PO DAILY@0600 [facility] Last Admin: 07/10/25 06:45 Dose: 75 mcg Lidocaine HCl (Lidocaine 4 % Cream Kit) 1 appl TOPICAL ONCE PRN; Protocol PRN Reason: lower back pain Last Admin: 07/10/25 08:41 Dose: 1 appl Lorazepam (Lorazepam 0.5 Mg Tablet) 0.5 mg PO DAILY PRN PRN Reason: severe anxiety Last Admin: 07/04/25 10:04 Dose: 0.5 mg Magnesium Hydroxide (Milk Of Magnesia 30 Ml Oral.Susp) 30 ml PO DAILY PRN PRN Reason: Constipation Multivitamins/Vitamin C (Multivitamin Tablet) 1 tab PO DAILY RATNA Last Admin: 07/10/25 08:42 Dose: 1 tab Nicotine Polacrilex (Nicotine Polacrilex 2 Mg Gum) 4 mg BUCCAL Q2H PRN PRN Reason: Nicotine Cravings Perphenazine (Perphenazine 4 Mg Tablet) 4 mg PO TID RATNA Last Admin: 07/10/25 08:41 Dose: 4 mg Prazosin HCl (Prazosin Hcl 1 Mg Capsule) 2 mg PO BEDTIME RATNA; Protocol Last Admin: 07/09/25 20:37 Dose: 2 mg Quetiapine Fumarate (Quetiapine Fumarate 100 Mg Tablet) 100 mg PO BEDTIME [facility] Last Admin: 07/09/25 21:15 Dose: 100 mg Risperidone (Risperidone 1 Mg Tablet) 1 mg PO DAILY PRN PRN Reason: disorganized behavior Trazodone HCl (Trazodone Hcl 50 Mg Tablet) 50 mg PO BEDTIME MRX1 PRN PRN Reason: Insomnia Allergies Allergies Allergy/AdvReac Type Severity Reaction Status Date / Time No Known Allergies Allergy Verified 06/24/25 17:49 Assessment & Plan Assessment & Plan (1) Schizoaffective disorder, bipolar type: Status: Acute Code(s): F25.0 - Schizoaffective disorder, bipolar type (2) Depression: Status: Acute Code(s): F32.A - Depression, unspecified Plan HPI: Pt is a 40 year old female who presented to the ED after being dropped off by a friend . Upon arrival to the ED she appeared increasingly paranoid and indicated that she was fearful she was being drugged by her and voiced concern for her and her children's safety. Pt stated that she wanted to have her medications checked as things are just off, my daily routine is off . Pt provided inconsistent information as evidence by conflicting information from what she disclosed to the ED provider upon arrival and at times appears to be a poor historian as a result of her current presentation. She remained guarded at this time and at times appeared to be minimizing symptoms as well as medication seeking as she remained primarily focused on her controlled substances that she is currently prescribed. It is to be noted. Formulation/clinical reasoning: Increasing psychotic behaviors, paranoid, disorganized thought process. Family members have safety concern regarding patient mental status at this current time. Even the above information, patient will be benefit in restrictive environment, medication management, and refer patient back to outpatient psychiatric services. Hospital course: 06/25/25: Continue with home medications. In my impression, patient may think that she just come here to get refill of her medication and will be sent home. However, other time she also stating that she has not come here for medication change as if she needs a refilled she can get it feel from her OP provider. Ativan 1 mg q.4 hours p.r.n. for severe anxiety. Home dose was only 0.5 b.i.d. p.r.n.. Stimulants: Continue with stimulants, we will monitor if it causing more psychotic behavior. Questioned if patient overused her Adderall information regarding recent weight lost, and be psychotic. 06/26/2025: Continue to encourage medication adherence and engagement. 06/27: accepting medications and requested prazosin 2mg be restarted 06/28 Patient is a limited historian due to disorganized speech and behavior. Throughout interview patient looking off in the distance, sometimes very latent responses, appearing to be internally preoccupied; frequently not finishing sentences, giving cryptic, vague and frequently unrelated responses to discussion questions. Die Cast Operator introduces himself has a doctor... Patient then asks are you a Dr.? I am not a doctor. I am Daphne... On inquiry about why patient came to the hospital, she replies, with speech latency and in broken sentences I came... I wanted medications reviewed... And wanted a toxicology... The unknown.... Things got a little unhinged... The court room... Domestic stuff. Patient goes on I was looking for my medications at my house... Interviews, talking, trying to survive all the time... The reality of things is unclear to me... Of the events. Die Cast Operator asks for clarification to which patient says, again after significant latency, the court house... I just want my Garrett back... (she later clarifies that the Overton is a multi tool knife). Patient then started to refer to another patient, saying he wants a tape measure... I have one... I can hang out... There is time and things will be revealed... Whenever thing comes together... Family and judges and worldly stuff.. Die Cast Operator asks about her earlier concern that her is poisoning her... Patient remained silent for awhile and then says I checked my meds... When I went to talk to them... I would like to see the toxicology... My back was sweating.. I was questioning reality generally... There was a 911 call... She then told senior underwriter she questioned the reality of this conversation but could not clarify further but then some something about getting her red ticket.. Regarding how she got to the hospital, patient said officers came to my house and talked to my kids...my daughter called them...since i was not feeling safe.....i know my very well...it just wasnt a good think going on...i wasn't...no...it got real.....im in survival mode...it started getting scary and dangerous...my was getting a little...red flaggs...it started to be an unsafe situation..he [] was not himself... Patient also said that her best friend Stephanie Holder dropped her off at the hospital; not clear how she got here. Patient gave senior underwriter permission to talk to Stephanie and also to collect information from her . denies drugs or taking her prescribed medications in excess denies hx manic episodes; yes AH but nothing to be alarmed about... Nurse Note by Karon Arora RN 06/25/25 09:54 - This RN spoke to [facility] regarding the situation that led to being present here in the ER. Per [facility] employee, yesterday there was an argument between the patient and her where both her and her received a crisis consult. Per [facility] employee, patient was originally seen by [facility] crisis and it was determined she could go to respite, however, shortly after, crisis was called back to the home and the patient was sent here to the hospital. When the [facility] employee interviewed the pts 14 year old son, he reports that his mom has been acting really paranoid about things as of recently. (daughter 14yo, Son 11yo) 06/29 Patient remains with psychotic symptoms and said she thinks maybe he[] wants to kill or hurt me... Die Cast Operator inquired and patient kept coming back to the fact that he put her home medications in the wrong pill box compartments... and this is what made her think he is trying to kill her... Patient however was willing to entertain that perhaps this might not be true. However, she is significantly more organized today than she was yesterday, talking in full sentences sticking to the topic at hand. She agrees that yesterday she was feeling much more confused she is thinking more clearly today. Patient's father present who has been meeting with her daily since this admission and who agrees that she is significantly better and headed back towards her regular self. Patient agreed to sign a CV and also agreed to have Vyvanse and bupropion discontinued for now; she also agreed to take risperidone which senior underwriter explained was hopefully just for few days. IMPRESSION: Patient demonstrating psychotic symptoms, auditory hallucinations, paranoid delusions and disorganized speech and behavior; patient is certainly internally preoccupied. So far collateral reports that patient has no history of psychosis or bipolar disorder. After gathering collateral from patient's and father, both deny any history of psychosis or sukhdeep were similar such episodes. Both speculate patient may have abused prescription medications including Vyvanse (and reports may have used crack cocaine) accounting for triggering this episode. Frequently substance induced psychosis resolves within 1-2 days (though can also persist for 2 or more weeks); however patient has remained on both Vyvanse and Wellbutrin which could prolonged symptoms (as both can increase dopamine). Will hold both Vyvanse and Wellbutrin. Also started risperidone low-dose to help with dopamine blockade. 06/30 Patient remains with paranoid ideation; refused Risperdal. On inquiry patient said she does not think she needs it but senior underwriter continue to educate patient on medication and she said she would start taking it. Patient with some increase disorganized behaviors today, seen self-dialoguing and responding to internal stimuli at 1 point standing aimlessly in hallway, not moving. Slept only 4 hours -hopefully patient will start taking risperidone 07/01 patient remains with intermittent odd and disorganized behaviors, talking to herself in the wetzel; remains with paranoid ideations however is able to be more logical in conversation and for longer periods of time. Patient's sister visiting who gave history that patient started to a peer to be manic about 5 months ago which correlates to increased Vyvanse dose (hyperactive, rapid speech, little sleep-which patient concurred); patient's sister volunteered that she has schizoaffective disorder and has been on medication which was a surprise to patient but with this news was willing to take Risperdal 07/02 patient doing much better. Patient is more organized in both speech and behavior. Patient did take Risperdal twice yesterday but found it made her tired and did not want it anymore. However she agrees it may have been helpful. Patient for the 1st time able to talk much more logically and accurately about history and shares with senior underwriter that she has been diagnosed with bipolar disorder in the past and was at 1 point on Seroquel around 400 mg and then stabilized on Lamictal 200 mg. Patient said that she had been doing well for so long that her current psychiatric provider agreed to start peeling away her medications and Seroquel was lowered to 100 mg Lamictal tapered down to 50 mg. This taper coincided with patient being started on stimulant medication for ADHD and her Vyvanse was titrated. Patient agrees that it is very possible that the tapering off of Lamictal (she may have been on only Lamictal and not Seroquel for quite awhile) the titration of a stimulant medication is what triggered manic episode which worsened over the past few weeks and included significant paranoid ideations. Patient agrees to get back on Lamictal which caused no side effects. -remains with paranoid ideations about her but they are less intense and patient more open to reality testing; of note patient's does have schizophrenia 07/05 patient continues to be improved, overall organized in speech and behavior able to discuss diagnosis and treatment appropriately 07/06Patient more disorganized doing bizarre, odd hand movements during interview. Patient mimicking/mirroring the hand gestures of whomever is talking; some echolalia as well. Patient remains very vague when discussing her thoughts. Continues to have some paranoid ideations about her however patient's sister does agree that patient's is excessively controlling and for the past 2 years, the sister has noticed that he dictates how long and with whom patient can spend time. Patient struggles to have insight into her behaviors including when they are pointed out in real-time. However she does agree to start perphenazine\ -had discussed risks/side effects of antipsychotics 07/07 Patient denies any medications side effects. Continues to have disorganized in behaviors and now hiding in the corners of the hallway throughout the milieu; continues to mirror movements of others with intermittent echolalia. Remains very vague on what he is thinking and keeps saying she is just waiting for it to all come together. 07/08 Patient Increasingly disorganized; standing in the corner for hours, peering around it into the milieu, not talking. Patient guarded on approach. Initially refused perphenazine but was willing to discuss it with senior underwriter and patient said she does not feel like herself and hoped that the medication would help repair that. Patient agreed to increasing perphenazine to 4 mg t.i.d. -regarding diagnosis, patient has past diagnosis of bipolar disorder which reportedly was treated with Lamictal and before that Seroquel. Patient is not particularly manic but is definitely with psychotic symptoms. Will provisionally change diagnosis to schizoaffective disorder 07/09 little better today with increased dose of perphenazine which patient has been taking. She denies medication side effects and agrees that medications are helpful Still odd but less so and seems to be more organized. Still with limited insight but reports she is feeling better and more like herself though can not specifically articulate why. Patient said she had a good talk with her daughter which was helpful; also talked with the telling him she wants to separate which she said was a long time coming -seems that perphenazine is helping; will continue 07/10 Patient agitated on the unit today and yelling in the hallway. Die Cast Operator discussed this with patient who expresses concern about her being with her children. pt says she gave him bad news about their marriage and is worried about his mental state. She says he has had hallucinated/paranoid delusions about their son, a few years ago. Today, she can not say what he did or said that worried her...other than vague references to his composure...reactions...like he's not in touch with reality... But with no specifics...She agrees perhaps he could just be anxious... She also says she believes he has been unmedicated for a long time She then told her senior underwriter that Juan Miguel [son] talks in code to me, like I asked 'what are you wearing to school today...' and he said 'my pink Allan shirt tomorrow...' but he does not have a pink allan shirt, which means he's talking to me in code... She said this exchange happened the week prior to this admission and that he is talking in code her so his father will not know. Patient then showed senior underwriter a picture her son made which her brought in for her during this visit; she insisted him doing so was manipulative though senior underwriter could not understand why; patient showed senior underwriter a letter her wrote to her which was generally about how he is hoping for her and he wished to get help her. Patient says she thinks it is weird though senior underwriter could not understand why. After this encounter with her , she l called PD for wellness check on son; check was completed and PD informed her that her son is OK. She signed a 3 day notice Impression: Patient remains with paranoid ideations and no insight into her own illness Patient agreed to increase perhphenazine to 18mg total daily dose and changed bulk to bedtime since pt says afternoon dose sedating Plan Three day q15 Change to Perphenazine 6 mg daily and 12 mg q.h.s. (changed to b.i.d. since patient reports afternoon dose sedating) Increased Lamictal to 125 mg: Used to be on 200 and has been on 50 mg for months HOLD Wellbutrin 300 mg daily: will monitor for psychosis. HOLD Stephan CHÁVEZ risperidone; patient does not like and patient is improved P.R.N. Zyprexa 5mg q.4 hours p.r.n. for agitation/psychosis Seroquel 100 at bedtime for sleep Lamictal 50 mg at bedtime. BuSpar 15 mg twice a day. Lexapro 10mg daily Patient educated on: diagnosis, medication risk/benefits and therapeutic strategies Informed Consent: understands, does not understand and further education needed Reason for continued inpatient stay Substantial Risk for: inability to function Time Spent With Patient Time: Total time managing care of this patient today ____ minutes.
--- NOTE | 2025-07-10 15:45 | PC.NURSE ---
Submitted 3 day notice, up on Sat07/14/25; treatment team notified.
[2025-07-10 20:00] VITALS: BP 136/83; PULSE 83; TEMP 37; O2SAT 100
[2025-07-11 07:59] VITALS: BP 128/84; PULSE 92; RESP 16; TEMP 36.6; O2SAT 100
--- NOTE | 2025-07-11 09:04 | P.PNPSI_ITS ---
Subjective Subjective Date of Service: 07/11/25 Reason For Visit: Recurrent major depression with psychosis Interim History: Met with patient; discussed with team Patient refuse perphenazine, last night and this morning. Patient barely slept and staff reports she was pacing the wetzel throughout the night. On inquiry patient said that the afternoon dose was making her feel tired; regarding the bedtime dose, she said she just does not want to take this medication and wants to try something different in the same category. Gravity Prospecting Supervisor offered haloperidol with which she agreed. Mental Status Exam Mental Status Exam Narrative: Pt is alert and oriented; behavior remains intermittently odd but also a little more more naturally social in the milieu; sometimes stands in the corner but less so; guarded but not uncooperative; patient is not in distress; dressed in casual attire with adequate grooming and hygiene; mood is described as good and affect congruent, overall brighter more calm; eye contact appropriate; Speech is normal rate, volume and prosody and not pressured; intermittent psychomotor agitation present; thought process a little more linear; Thought content is on paranoid ideations; denies any SI/HI. Denies AVH but intermittently internally preoccupied. Patients insight and judgment impaired Diagnostics Vital Signs (24Hr): Vital Signs - 24 hr 07/10/25 20:00 07/11/25 07:59 Temperature 98.6 F 98 F Pulse Rate 83 92 Respiratory Rate 16 Blood Pressure 136/83 128/84 Pulse Oximetry 100 100 Oxygen Delivery Method Room Air Room Air BMI result Body Mass Index 20.8 Labs 06/30/25 07:49 06/30/25 07:49 Medications Medications Current Medications Acetaminophen (Acetaminophen 325 Mg Tablet) 650 mg PO Q6H PRN PRN Reason: Headache/Pain, Scale 1-10 Last Admin: 07/06/25 14:36 Dose: 650 mg Al Hydroxide/Mg Hydroxide (Magnesium Hydrox/Alum Hydrox 30 Ml Oral.Susp) 30 ml PO Q6H PRN PRN Reason: Heartburn/Nausea Buspirone HCl (Buspirone Hcl 5 Mg Tablet) 15 mg PO BID [facility] Last Admin: 07/11/25 08:39 Dose: 15 mg Cyclobenzaprine HCl (Cyclobenzaprine Hcl 10 Mg Tablet) 10 mg PO TID PRN PRN Reason: Muscle Spasm Escitalopram Oxalate (Escitalopram Oxalate 10 Mg Tablet) 10 mg PO DAILY [facility] Last Admin: 07/11/25 08:39 Dose: 10 mg Hydroxyzine HCl (Hydroxyzine Hcl 25 Mg Tablet) 25 mg PO Q6H PRN PRN Reason: mild anxiety Last Admin: 06/29/25 17:08 Dose: 25 mg Ibuprofen (Ibuprofen 600 Mg Tablet) 600 mg PO Q6H PRN PRN Reason: Pain, Severe (Pain Scale 7-10) Last Admin: 07/05/25 13:21 Dose: 600 mg Lamotrigine (Lamotrigine 25 Mg Tablet) 125 mg PO BEDTIME RATNA Last Admin: 07/10/25 22:41 Dose: 125 mg Levothyroxine Sodium (Levothyroxine Sodium 75 Mcg Tablet) 75 mcg PO DAILY@0600 RATNA Last Admin: 07/11/25 07:21 Dose: 75 mcg Lidocaine HCl (Lidocaine 4 % Cream Kit) 1 appl TOPICAL ONCE PRN; Protocol PRN Reason: lower back pain Last Admin: 07/10/25 16:45 Dose: 1 appl Lorazepam (Lorazepam 0.5 Mg Tablet) 0.5 mg PO DAILY PRN PRN Reason: severe anxiety Last Admin: 07/04/25 10:04 Dose: 0.5 mg Magnesium Hydroxide (Milk Of Magnesia 30 Ml Oral.Susp) 30 ml PO DAILY PRN PRN Reason: Constipation Multivitamins/Vitamin C (Multivitamin Tablet) 1 tab PO DAILY [facility] Last Admin: 07/11/25 08:40 Dose: 1 tab Nicotine Polacrilex (Nicotine Polacrilex 2 Mg Gum) 4 mg BUCCAL Q2H PRN PRN Reason: Nicotine Cravings Perphenazine (Perphenazine 2 Mg Tablet) 6 mg PO DAILY [facility] Last Admin: 07/11/25 08:39 Dose: Not Given Perphenazine (Perphenazine 4 Mg Tablet) 12 mg PO BEDTIME RATNA Last Admin: 07/10/25 22:43 Dose: Not Given Prazosin HCl (Prazosin Hcl 1 Mg Capsule) 2 mg PO BEDTIME RATNA; Protocol Last Admin: 07/10/25 22:40 Dose: 2 mg Quetiapine Fumarate (Quetiapine Fumarate 100 Mg Tablet) 100 mg PO BEDTIME RATNA Last Admin: 07/10/25 22:41 Dose: 50 mg Risperidone (Risperidone 1 Mg Tablet) 1 mg PO DAILY PRN PRN Reason: disorganized behavior Trazodone HCl (Trazodone Hcl 50 Mg Tablet) 50 mg PO BEDTIME MRX1 PRN PRN Reason: Insomnia Allergies Allergies Allergy/AdvReac Type Severity Reaction Status Date / Time No Known Allergies Allergy Verified 06/24/25 17:49 Assessment & Plan Assessment & Plan (1) Schizoaffective disorder, bipolar type: Status: Acute Code(s): F25.0 - Schizoaffective disorder, bipolar type (2) Depression: Status: Acute Code(s): F32.A - Depression, unspecified Plan HPI: Pt is a 40 year old female who presented to the ED after being dropped off by a friend . Upon arrival to the ED she appeared increasingly paranoid and indicated that she was fearful she was being drugged by her and voiced concern for her and her children's safety. Pt stated that she wanted to have her medications checked as things are just off, my daily routine is off . Pt provided inconsistent information as evidence by conflicting information from what she disclosed to the ED provider upon arrival and at times appears to be a poor historian as a result of her current presentation. She remained guarded at this time and at times appeared to be minimizing symptoms as well as medication seeking as she remained primarily focused on her controlled substances that she is currently prescribed. It is to be noted. Formulation/clinical reasoning: Increasing psychotic behaviors, paranoid, disorganized thought process. Family members have safety concern regarding patient mental status at this current time. Even the above information, patient will be benefit in restrictive environment, medication management, and refer patient back to outpatient psychiatric services. Hospital course: 06/25/25: Continue with home medications. In my impression, patient may think that she just come here to get refill of her medication and will be sent home. However, other time she also stating that she has not come here for medication change as if she needs a refilled she can get it feel from her OP provider. Ativan 1 mg q.4 hours p.r.n. for severe anxiety. Home dose was only 0.5 b.i.d. p.r.n.. Stimulants: Continue with stimulants, we will monitor if it causing more psychotic behavior. Questioned if patient overused her Adderall information regarding recent weight lost, and be psychotic. 06/26/2025: Continue to encourage medication adherence and engagement. 06/27: accepting medications and requested prazosin 2mg be restarted 06/28 Patient is a limited historian due to disorganized speech and behavior. Throughout interview patient looking off in the distance, sometimes very latent responses, appearing to be internally preoccupied; frequently not finishing sentences, giving cryptic, vague and frequently unrelated responses to discussion questions. [employer]ing Supervisor introduces himself has a doctor... Patient then asks are you a Dr.? I am not a doctor. I am Daphne... On inquiry about why patient came to the hospital, she replies, with speech latency and in broken sentences I came... I wanted medications reviewed... And wanted a toxicology... The unknown.... Things got a little unhinged... The court room... Domestic stuff. Patient goes on I was looking for my medications at my house... Interviews, talking, trying to survive all the time... The reality of things is unclear to me... Of the events. Gravity Prospecting Supervisor asks for clarification to which patient says, again after significant latency, the court house... I just want my Garrett back... (she later clarifies that the Garrett is a multi tool knife). Patient then started to refer to another patient, saying he wants a tape measure... I have one... I can hang out... There is time and things will be revealed... Whenever thing comes together... Family and judges and worldly stuff.. Gravity Prospecting Supervisor asks about her earlier concern that her is poisoning her... Patient remained silent for awhile and then says I checked my meds... When I went to talk to them... I would like to see the toxicology... My back was sweating.. I was questioning reality generally... There was a 911 call... She then told mortgage or loan underwriter she questioned the reality of this conversation but could not clarify further but then some something about getting her red ticket.. Regarding how she got to the hospital, patient said officers came to my house and talked to my kids...my daughter called them...since i was not feeling safe.....i know my very well...it just wasnt a good think going on...i wasn't...no...it got real.....im in survival mode...it started getting scary and dangerous...my was getting a little...red flaggs...it started to be an unsafe situation..he [] was not himself... Patient also said that her best friend Stephanie Holder dropped her off at the hospital; not clear how she got here. Patient gave mortgage or loan underwriter permission to talk to Stephanie and also to collect information from her . denies drugs or taking her prescribed medications in excess denies hx manic episodes; yes AH but nothing to be alarmed about... Nurse Note by Karon Arora RN 06/25/25 09:54 - This RN spoke to [facility] regarding the situation that led to being present here in the ER. Per [facility] employee, yesterday there was an argument between the patient and her where both her and her received a crisis consult. Per [facility] employee, patient was originally seen by [facility] crisis and it was determined she could go to respite, however, shortly after, crisis was called back to the home and the patient was sent here to the hospital. When the [facility] employee interviewed the pts 14 year old son, he reports that his mom has been acting really paranoid about things as of recently. (daughter 14yo, Son 11yo) 06/29 Patient remains with psychotic symptoms and said she thinks maybe he[] wants to kill or hurt me... Gravity Prospecting Supervisor inquired and patient kept coming back to the fact that he put her home medications in the wrong pill box compartments... and this is what made her think he is trying to kill her... Patient however was willing to entertain that perhaps this might not be true. However, she is significantly more organized today than she was yesterday, talking in full sentences sticking to the topic at hand. She agrees that yesterday she was feeling much more confused she is thinking more clearly today. Patient's father present who has been meeting with her daily since this admission and who agrees that she is significantly better and headed back towards her regular self. Patient agreed to sign a CV and also agreed to have Vyvanse and bupropion discontinued for now; she also agreed to take risperidone which mortgage or loan underwriter explained was hopefully just for few days. IMPRESSION: Patient demonstrating psychotic symptoms, auditory hallucinations, paranoid delusions and disorganized speech and behavior; patient is certainly internally preoccupied. So far collateral reports that patient has no history of psychosis or bipolar disorder. After gathering collateral from patient's and father, both deny any history of psychosis or sukhdeep were similar such episodes. Both speculate patient may have abused prescription medications including Vyvanse (and reports may have used crack cocaine) accounting for triggering this episode. Frequently substance induced psychosis resolves within 1-2 days (though can also persist for 2 or more weeks); however patient has remained on both Vyvanse and Wellbutrin which could prolonged symptoms (as both can increase dopamine). Will hold both Vyvanse and Wellbutrin. Also started risperidone low-dose to help with dopamine blockade. 06/30 Patient remains with paranoid ideation; refused Risperdal. On inquiry patient said she does not think she needs it but mortgage or loan underwriter continue to educate patient on medication and she said she would start taking it. Patient with some increase disorganized behaviors today, seen self-dialoguing and responding to internal stimuli at 1 point standing aimlessly in hallway, not moving. Slept only 4 hours -hopefully patient will start taking risperidone 07/01 patient remains with intermittent odd and disorganized behaviors, talking to herself in the wetzel; remains with paranoid ideations however is able to be more logical in conversation and for longer periods of time. Patient's sister visiting who gave history that patient started to a peer to be manic about 5 months ago which correlates to increased Vyvanse dose (hyperactive, rapid speech, little sleep-which patient concurred); patient's sister volunteered that she has schizoaffective disorder and has been on medication which was a surprise to patient but with this news was willing to take Risperdal 07/02 patient doing much better. Patient is more organized in both speech and behavior. Patient did take Risperdal twice yesterday but found it made her tired and did not want it anymore. However she agrees it may have been helpful. Patient for the 1st time able to talk much more logically and accurately about history and shares with mortgage or loan underwriter that she has been diagnosed with bipolar disorder in the past and was at 1 point on Seroquel around 400 mg and then stabilized on Lamictal 200 mg. Patient said that she had been doing well for so long that her current psychiatric provider agreed to start peeling away her medications and Seroquel was lowered to 100 mg Lamictal tapered down to 50 mg. This taper coincided with patient being started on stimulant medication for ADHD and her Vyvanse was titrated. Patient agrees that it is very possible that the tapering off of Lamictal (she may have been on only Lamictal and not Seroquel for quite awhile) the titration of a stimulant medication is what triggered manic episode which worsened over the past few weeks and included significant paranoid ideations. Patient agrees to get back on Lamictal which caused no side effects. -remains with paranoid ideations about her but they are less intense and patient more open to reality testing; of note patient's does have schizophrenia 07/05 patient continues to be improved, overall organized in speech and behavior able to discuss diagnosis and treatment appropriately 07/06Patient more disorganized doing bizarre, odd hand movements during interview. Patient mimicking/mirroring the hand gestures of whomever is talking; some echolalia as well. Patient remains very vague when discussing her thoughts. Continues to have some paranoid ideations about her however patient's sister does agree that patient's is excessively controlling and for the past 2 years, the sister has noticed that he dictates how long and with whom patient can spend time. Patient struggles to have insight into her behaviors including when they are pointed out in real-time. However she does agree to start perphenazine\ -had discussed risks/side effects of antipsychotics 07/07 Patient denies any medications side effects. Continues to have disorganized in behaviors and now hiding in the corners of the hallway throughout the milieu; continues to mirror movements of others with intermittent echolalia. Remains very vague on what he is thinking and keeps saying she is just waiting for it to all come together. 07/08 Patient Increasingly disorganized; standing in the corner for hours, peering around it into the milieu, not talking. Patient guarded on approach. Initially refused perphenazine but was willing to discuss it with mortgage or loan underwriter and patient said she does not feel like herself and hoped that the medication would help repair that. Patient agreed to increasing perphenazine to 4 mg t.i.d. -regarding diagnosis, patient has past diagnosis of bipolar disorder which reportedly was treated with Lamictal and before that Seroquel. Patient is not particularly manic but is definitely with psychotic symptoms. Will provisionally change diagnosis to schizoaffective disorder 07/09 little better today with increased dose of perphenazine which patient has been taking. She denies medication side effects and agrees that medications are helpful Still odd but less so and seems to be more organized. Still with limited insight but reports she is feeling better and more like herself though can not specifically articulate why. Patient said she had a good talk with her daughter which was helpful; also talked with the telling him she wants to separate which she said was a long time coming -seems that perphenazine is helping; will continue 07/10 Patient agitated on the unit today and yelling in the hallway. [employer] Prospecting Supervisor discussed this with patient who expresses concern about her being with her children. pt says she gave him bad news about their marriage and is worried about his mental state. She says he has had hallucinated/paranoid delusions about their son, a few years ago. Today, she can not say what he did or said that worried her...other than vague references to his composure...reactions...like he's not in touch with reality... But with no specifics...She agrees perhaps he could just be anxious... She also says she believes he has been unmedicated for a long time She then told her mortgage or loan underwriter that Juan Miguel [son] talks in code to me, like I asked 'what are you wearing to school today...' and he said 'my pink Allan shirt tomorrow...' but he does not have a pink allan shirt, which means he's talking to me in code... She said this exchange happened the week prior to this admission and that he is talking in code her so his father will not know. Patient then showed mortgage or loan underwriter a picture her son made which her brought in for her during this visit; she insisted him doing so was manipulative though mortgage or loan underwriter could not understand why; patient showed mortgage or loan underwriter a letter her wrote to her which was generally about how he is hoping for her and he wished to get help her. Patient says she thinks it is weird though mortgage or loan underwriter could not understand why. After this encounter with her , she l called PD for wellness check on son; check was completed and PD informed her that her son is OK. She signed a 3 day notice 07/11 Patient refuse perphenazine, last night and this morning. Patient barely slept and staff reports she was pacing the wetzel throughout the night. On inquiry patient said that the afternoon dose was making her feel tired; regarding the bedtime dose, she said she just does not want to take this medication and wants to try something different in the same category. [employer]ity Prospecting Supervisor offered haloperidol with which she agreed. Impression: Patient remains with paranoid ideations and no insight into her own illness. She has some hypomanic behaviors; most of her problematic symptoms have been psychosis so have been focusing on antipsychotic however patient may benefit from traditional mood stabilizer; will continue to titrate Lamictal however this may not be adequate. Will hold Lexapro. -if patient willing will also consider increasing Seroquel at bedtime though concern is it would cause daytime sedation and she would refuse it. Plan Three day q15 Start Haldol 5 mg b.i.d. Increased Lamictal to 125 mg: Used to be on 200 and has been on 50 mg for months HOLD Wellbutrin 300 mg daily: will monitor for psychosis. HOLD Lexapro 10 mg daily since hypomanic behaviors HOLD Vyvanse DC perphenazine; patient did not want it, saying it made her sedated DC risperidone; patient does not like and patient is improved P.R.N. Zyprexa 5mg q.4 hours p.r.n. for agitation/psychosis Seroquel 100 at bedtime for sleep. BuSpar 15 mg twice a day. Patient educated on: diagnosis and therapeutic strategies Informed Consent: understands, does not understand and further education needed Reason for continued inpatient stay Substantial Risk for: inability to function Time Spent With Patient Time: Total time managing care of this patient today ____ minutes.
[2025-07-11 20:00] VITALS: BP 111/66; PULSE 99; RESP 15; TEMP 36.6; O2SAT 98
--- NOTE | 2025-07-12 | ECG_ITS ---
Test Reason : QTC CHECK Blood Pressure : */* mmHG Vent. Rate : 84 BPM Atrial Rate : 84 BPM P-R Int : 144 ms QRS Dur : 76 ms QT Int : 364 ms P-R-T Axes : 73 67 60 degrees QTcB Int : 430 ms Normal sinus rhythm with sinus arrhythmia Normal ECG When compared with ECG of 25-Jun-2025 08:22, No significant change was found Referred By: Maxi Puentes Electronically Signed By: Uday Pepe
[2025-07-12 08:00] VITALS: BP 110/74; PULSE 93; RESP 18; TEMP 36.6; O2SAT 100
--- NOTE | 2025-07-12 14:36 | HO.PSYCHPN ---
Subjective Subjective Date of Service: 07/12/25 Reason For Visit: Recurrent major depression with psychosis Interim History: Met with patient; discussed with team Patient's visited and patient got very angry, yelled at him and assisted he leave. Patient shared that this was built up for awhile. Patient agreed that antipsychotic medication has been helpful but again feels Haldol is too sedating during the day. Discussed risks/side effects of clozapine and patient agrees to start. Also discussed possible of just increasing Seroquel as she has been on a higher dose in the past however she says it caused emotional numbing and wt gain Mental Status Exam Mental Status Exam Narrative: Pt is alert and oriented; behavior remains intermittently odd but also a little more more naturally social in the milieu; sometimes stands in the corner but less so; guarded but not uncooperative; patient is not in distress; dressed in casual attire with adequate grooming and hygiene; mood is described as good and affect congruent, overall brighter more calm; eye contact appropriate; Speech is normal rate, volume and prosody and not pressured; intermittent psychomotor agitation present; thought process a little more linear; Thought content is on paranoid ideations; denies any SI/HI. Denies AVH but intermittently internally preoccupied. Patients insight and judgment impaired Diagnostics Vital Signs (24Hr): Vital Signs - 24 hr 07/11/25 20:00 07/12/25 08:00 Temperature 97.8 F 97.9 F Pulse Rate 99 93 Respiratory Rate 15 18 Blood Pressure 111/66 110/74 Pulse Oximetry 98 100 Oxygen Delivery Method Room Air BMI result Body Mass Index 20.8 Labs 06/30/25 07:49 06/30/25 07:49 Medications Medications Current Medications Acetaminophen (Acetaminophen 325 Mg Tablet) 650 mg PO Q6H PRN PRN Reason: Headache/Pain, Scale 1-10 Last Admin: 07/06/25 14:36 Dose: 650 mg Al Hydroxide/Mg Hydroxide (Magnesium Hydrox/Alum Hydrox 30 Ml Oral.Susp) 30 ml PO Q6H PRN PRN Reason: Heartburn/Nausea Buspirone HCl (Buspirone Hcl 5 Mg Tablet) 15 mg PO BID RATNA Last Admin: 07/12/25 08:20 Dose: 15 mg Cyclobenzaprine HCl (Cyclobenzaprine Hcl 10 Mg Tablet) 10 mg PO TID PRN PRN Reason: Muscle Spasm Haloperidol (Haloperidol 5 Mg Tablet) 5 mg PO BID [facility] Last Admin: 07/12/25 08:23 Dose: Not Given Hydroxyzine HCl (Hydroxyzine Hcl 25 Mg Tablet) 25 mg PO Q6H PRN PRN Reason: mild anxiety Last Admin: 06/29/25 17:08 Dose: 25 mg Ibuprofen (Ibuprofen 600 Mg Tablet) 600 mg PO Q6H PRN PRN Reason: Pain, Severe (Pain Scale 7-10) Last Admin: 07/12/25 12:57 Dose: 600 mg Lamotrigine (Lamotrigine 25 Mg Tablet) 125 mg PO BEDTIME RATNA Last Admin: 07/11/25 20:46 Dose: 125 mg Levothyroxine Sodium (Levothyroxine Sodium 75 Mcg Tablet) 75 mcg PO DAILY@0600 [facility] Last Admin: 07/12/25 06:56 Dose: 75 mcg Lidocaine HCl (Lidocaine 4 % Cream Kit) 1 appl TOPICAL ONCE PRN; Protocol PRN Reason: lower back pain Last Admin: 07/10/25 16:45 Dose: 1 appl Lorazepam (Lorazepam 0.5 Mg Tablet) 0.5 mg PO DAILY PRN PRN Reason: severe anxiety Last Admin: 07/04/25 10:04 Dose: 0.5 mg Magnesium Hydroxide (Milk Of Magnesia 30 Ml Oral.Susp) 30 ml PO DAILY PRN PRN Reason: Constipation Multivitamins/Vitamin C (Multivitamin Tablet) 1 tab PO DAILY [facility] Last Admin: 07/12/25 08:20 Dose: 1 tab Nicotine Polacrilex (Nicotine Polacrilex 2 Mg Gum) 4 mg BUCCAL Q2H PRN PRN Reason: Nicotine Cravings Prazosin HCl (Prazosin Hcl 1 Mg Capsule) 2 mg PO BEDTIME [facility]; Protocol Last Admin: 07/11/25 20:46 Dose: 2 mg Quetiapine Fumarate (Quetiapine Fumarate 100 Mg Tablet) 100 mg PO BEDTIME RATNA Last Admin: 07/11/25 21:51 Dose: 100 mg Risperidone (Risperidone 1 Mg Tablet) 1 mg PO DAILY PRN PRN Reason: disorganized behavior Trazodone HCl (Trazodone Hcl 50 Mg Tablet) 50 mg PO BEDTIME MRX1 PRN PRN Reason: Insomnia Allergies Allergies Allergy/AdvReac Type Severity Reaction Status Date / Time No Known Allergies Allergy Verified 06/24/25 17:49 Assessment & Plan Assessment & Plan (1) Schizoaffective disorder, bipolar type: Status: Acute Code(s): F25.0 - Schizoaffective disorder, bipolar type (2) Depression: Status: Acute Code(s): F32.A - Depression, unspecified Plan HPI: Pt is a 40 year old female who presented to the ED after being dropped off by a friend . Upon arrival to the ED she appeared increasingly paranoid and indicated that she was fearful she was being drugged by her and voiced concern for her and her children's safety. Pt stated that she wanted to have her medications checked as things are just off, my daily routine is off . Pt provided inconsistent information as evidence by conflicting information from what she disclosed to the ED provider upon arrival and at times appears to be a poor historian as a result of her current presentation. She remained guarded at this time and at times appeared to be minimizing symptoms as well as medication seeking as she remained primarily focused on her controlled substances that she is currently prescribed. It is to be noted. Formulation/clinical reasoning: Increasing psychotic behaviors, paranoid, disorganized thought process. Family members have safety concern regarding patient mental status at this current time. Even the above information, patient will be benefit in restrictive environment, medication management, and refer patient back to outpatient psychiatric services. Hospital course: 06/25/25: Continue with home medications. In my impression, patient may think that she just come here to get refill of her medication and will be sent home. However, other time she also stating that she has not come here for medication change as if she needs a refilled she can get it feel from her OP provider. Ativan 1 mg q.4 hours p.r.n. for severe anxiety. Home dose was only 0.5 b.i.d. p.r.n.. Stimulants: Continue with stimulants, we will monitor if it causing more psychotic behavior. Questioned if patient overused her Adderall information regarding recent weight lost, and be psychotic. 06/26/2025: Continue to encourage medication adherence and engagement. 06/27: accepting medications and requested prazosin 2mg be restarted 06/28 Patient is a limited historian due to disorganized speech and behavior. Throughout interview patient looking off in the distance, sometimes very latent responses, appearing to be internally preoccupied; frequently not finishing sentences, giving cryptic, vague and frequently unrelated responses to discussion questions. Golf Caddy introduces himself has a doctor... Patient then asks are you a Dr.? I am not a doctor. I am Daphne... On inquiry about why patient came to the hospital, she replies, with speech latency and in broken sentences I came... I wanted medications reviewed... And wanted a toxicology... The unknown.... Things got a little unhinged... The court room... Domestic stuff. Patient goes on I was looking for my medications at my house... Interviews, talking, trying to survive all the time... The reality of things is unclear to me... Of the events. Golf Caddy asks for clarification to which patient says, again after significant latency, the court house... I just want my [place] back... (she later clarifies that the [place] is a multi tool knife). Patient then started to refer to another patient, saying he wants a tape measure... I have one... I can hang out... There is time and things will be revealed... Whenever thing comes together... Family and judges and worldly stuff.. Golf Caddy asks about her earlier concern that her is poisoning her... Patient remained silent for awhile and then says I checked my meds... When I went to talk to them... I would like to see the toxicology... My back was sweating.. I was questioning reality generally... There was a 911 call... She then told typewriter operator automatic she questioned the reality of this conversation but could not clarify further but then some something about getting her red ticket.. Regarding how she got to the hospital, patient said officers came to my house and talked to my kids...my daughter called them...since i was not feeling safe.....i know my very well...it just wasnt a good think going on...i wasn't...no...it got real.....im in survival mode...it started getting scary and dangerous...my was getting a little...red flaggs...it started to be an unsafe situation..he [] was not himself... Patient also said that her best friend Stephanie Holder dropped her off at the hospital; not clear how she got here. Patient gave typewriter operator automatic permission to talk to Stephanie and also to collect information from her . denies drugs or taking her prescribed medications in excess denies hx manic episodes; yes AH but nothing to be alarmed about... Nurse Note by Karon Arora RN 06/25/25 09:54 - This RN spoke to [facility] regarding the situation that led to being present here in the ER. Per [facility] employee, yesterday there was an argument between the patient and her where both her and her received a crisis consult. Per [facility] employee, patient was originally seen by [facility] crisis and it was determined she could go to respite, however, shortly after, crisis was called back to the home and the patient was sent here to the hospital. When the [facility] employee interviewed the pts 14 year old son, he reports that his mom has been acting really paranoid about things as of recently. (daughter 14yo, Son 11yo) 06/29 Patient remains with psychotic symptoms and said she thinks maybe he[] wants to kill or hurt me... Golf Caddy inquired and patient kept coming back to the fact that he put her home medications in the wrong pill box compartments... and this is what made her think he is trying to kill her... Patient however was willing to entertain that perhaps this might not be true. However, she is significantly more organized today than she was yesterday, talking in full sentences sticking to the topic at hand. She agrees that yesterday she was feeling much more confused she is thinking more clearly today. Patient's father present who has been meeting with her daily since this admission and who agrees that she is significantly better and headed back towards her regular self. Patient agreed to sign a CV and also agreed to have Vyvanse and bupropion discontinued for now; she also agreed to take risperidone which typewriter operator automatic explained was hopefully just for few days. IMPRESSION: Patient demonstrating psychotic symptoms, auditory hallucinations, paranoid delusions and disorganized speech and behavior; patient is certainly internally preoccupied. So far collateral reports that patient has no history of psychosis or bipolar disorder. After gathering collateral from patient's and father, both deny any history of psychosis or sukhdeep were similar such episodes. Both speculate patient may have abused prescription medications including Vyvanse (and reports may have used crack cocaine) accounting for triggering this episode. Frequently substance induced psychosis resolves within 1-2 days (though can also persist for 2 or more weeks); however patient has remained on both Vyvanse and Wellbutrin which could prolonged symptoms (as both can increase dopamine). Will hold both Vyvanse and Wellbutrin. Also started risperidone low-dose to help with dopamine blockade. 06/30 Patient remains with paranoid ideation; refused Risperdal. On inquiry patient said she does not think she needs it but typewriter operator automatic continue to educate patient on medication and she said she would start taking it. Patient with some increase disorganized behaviors today, seen self-dialoguing and responding to internal stimuli at 1 point standing aimlessly in hallway, not moving. Slept only 4 hours -hopefully patient will start taking risperidone 07/01 patient remains with intermittent odd and disorganized behaviors, talking to herself in the wetzel; remains with paranoid ideations however is able to be more logical in conversation and for longer periods of time. Patient's sister visiting who gave history that patient started to a peer to be manic about 5 months ago which correlates to increased Vyvanse dose (hyperactive, rapid speech, little sleep-which patient concurred); patient's sister volunteered that she has schizoaffective disorder and has been on medication which was a surprise to patient but with this news was willing to take Risperdal 07/02 patient doing much better. Patient is more organized in both speech and behavior. Patient did take Risperdal twice yesterday but found it made her tired and did not want it anymore. However she agrees it may have been helpful. Patient for the 1st time able to talk much more logically and accurately about history and shares with typewriter operator automatic that she has been diagnosed with bipolar disorder in the past and was at 1 point on Seroquel around 400 mg and then stabilized on Lamictal 200 mg. Patient said that she had been doing well for so long that her current psychiatric provider agreed to start peeling away her medications and Seroquel was lowered to 100 mg Lamictal tapered down to 50 mg. This taper coincided with patient being started on stimulant medication for ADHD and her Vyvanse was titrated. Patient agrees that it is very possible that the tapering off of Lamictal (she may have been on only Lamictal and not Seroquel for quite awhile) the titration of a stimulant medication is what triggered manic episode which worsened over the past few weeks and included significant paranoid ideations. Patient agrees to get back on Lamictal which caused no side effects. -remains with paranoid ideations about her but they are less intense and patient more open to reality testing; of note patient's does have schizophrenia 07/05 patient continues to be improved, overall organized in speech and behavior able to discuss diagnosis and treatment appropriately 07/06Patient more disorganized doing bizarre, odd hand movements during interview. Patient mimicking/mirroring the hand gestures of whomever is talking; some echolalia as well. Patient remains very vague when discussing her thoughts. Continues to have some paranoid ideations about her however patient's sister does agree that patient's is excessively controlling and for the past 2 years, the sister has noticed that he dictates how long and with whom patient can spend time. Patient struggles to have insight into her behaviors including when they are pointed out in real-time. However she does agree to start perphenazine\ -had discussed risks/side effects of antipsychotics 07/07 Patient denies any medications side effects. Continues to have disorganized in behaviors and now hiding in the corners of the hallway throughout the milieu; continues to mirror movements of others with intermittent echolalia. Remains very vague on what he is thinking and keeps saying she is just waiting for it to all come together. 07/08 Patient Increasingly disorganized; standing in the corner for hours, peering around it into the milieu, not talking. Patient guarded on approach. Initially refused perphenazine but was willing to discuss it with typewriter operator automatic and patient said she does not feel like herself and hoped that the medication would help repair that. Patient agreed to increasing perphenazine to 4 mg t.i.d. -regarding diagnosis, patient has past diagnosis of bipolar disorder which reportedly was treated with Lamictal and before that Seroquel. Patient is not particularly manic but is definitely with psychotic symptoms. Will provisionally change diagnosis to schizoaffective disorder 07/09 little better today with increased dose of perphenazine which patient has been taking. She denies medication side effects and agrees that medications are helpful Still odd but less so and seems to be more organized. Still with limited insight but reports she is feeling better and more like herself though can not specifically articulate why. Patient said she had a good talk with her daughter which was helpful; also talked with the telling him she wants to separate which she said was a long time coming -seems that perphenazine is helping; will continue 07/10 Patient agitated on the unit today and yelling in the hallway. Golf Caddy discussed this with patient who expresses concern about her being with her children. pt says she gave him bad news about their marriage and is worried about his mental state. She says he has had hallucinated/paranoid delusions about their son, a few years ago. Today, she can not say what he did or said that worried her...other than vague references to his composure...reactions...like he's not in touch with reality... But with no specifics...She agrees perhaps he could just be anxious... She also says she believes he has been unmedicated for a long time She then told her typewriter operator automatic that Juan Miguel [son] talks in code to me, like I asked 'what are you wearing to school today...' and he said 'my pink Allan shirt tomorrow...' but he does not have a pink allan shirt, which means he's talking to me in code... She said this exchange happened the week prior to this admission and that he is talking in code her so his father will not know. Patient then showed typewriter operator automatic a picture her son made which her brought in for her during this visit; she insisted him doing so was manipulative though typewriter operator automatic could not understand why; patient showed typewriter operator automatic a letter her wrote to her which was generally about how he is hoping for her and he wished to get help her. Patient says she thinks it is weird though typewriter operator automatic could not understand why. After this encounter with her , she l called PD for wellness check on son; check was completed and PD informed her that her son is OK. She signed a 3 day notice 07/11 Patient refuse perphenazine, last night and this morning. Patient barely slept and staff reports she was pacing the wetzel throughout the night. On inquiry patient said that the afternoon dose was making her feel tired; regarding the bedtime dose, she said she just does not want to take this medication and wants to try something different in the same category. Golf Caddy offered haloperidol with which she agreed. Impression: Patient remains with paranoid ideations and no insight into her own illness. She has some hypomanic behaviors; most of her problematic symptoms have been psychosis so have been focusing on antipsychotic however patient may benefit from traditional mood stabilizer; will continue to titrate Lamictal however this may not be adequate. Will hold Lexapro. -if patient willing will also consider increasing Seroquel at bedtime though concern is it would cause daytime sedation and she would refuse it. 07/12 little more organized, angry at her ; does not want Haldol, saying it makes her too sedated and agreed to Clozaril after reviewing risks/side effects -patient says she will retract her 3 day and stay a little longer Plan Three day q15 Start clozapine 25 mg q.h.s.; will titrate DC Haldol Increased Lamictal to 125 mg: Used to be on 200 and has been on 50 mg for months HOLD Wellbutrin 300 mg daily: will monitor for psychosis. HOLD Lexapro 10 mg daily since hypomanic behaviors HOLD Vyvanse DC perphenazine; patient did not want it, saying it made her sedated DC risperidone; patient does not like and patient is improved P.R.N. Zyprexa 5mg q.4 hours p.r.n. for agitation/psychosis Seroquel 100 at bedtime for sleep. BuSpar 15 mg twice a day. Patient educated on: diagnosis, medication risk/benefits and therapeutic strategies Informed Consent: understands, does not understand and further education needed Reason for continued inpatient stay Substantial Risk for: inability to function Time Spent With Patient Time: Total time managing care of this patient today ____ minutes.
[2025-07-12 19:43] VITALS: BP 107/70; PULSE 83; RESP 18; TEMP 37.2; O2SAT 100
[2025-07-13 08:00] VITALS: BP 130/61; PULSE 102; RESP 16; TEMP 36.5; O2SAT 100
[2025-07-13 08:17] LABS: Neut%MD 49.4 %; WBCANC 9.3 X10*3/uL
--- NOTE | 2025-07-13 09:43 | P.PNPSI_ITS ---
Subjective Subjective Date of Service: 07/13/25 Reason For Visit: Recurrent major depression with psychosis Interim History: met with patient; discussed with team more odd behaviors today, wandering, sometimes hiding in hallway; other times social with peers. Pt witnessed self-dialouging in bedroom. Agrees to titration of clozapine. Agrees to remain on the unit longer for treatment Mental Status Exam Mental Status Exam Narrative: Pt is alert and oriented; behavior remains intermittently odd; sometimes able to socialize, but often stands in the wetzel, peering around corner; self-dialoguing; can be guarded but cooperative and friendly on approach; patient is not in distress; dressed in casual attire with adequate grooming and hygiene; mood is described as good and affect remains intermittently furtive but overall brighter more calm; eye contact appropriate; Speech is normal rate, volume and prosody and not pressured; intermittent psychomotor agitation present; thought process a little more linear; Thought content is on paranoid ideations; denies any SI/HI. Denies AVH but intermittently internally preoccupied. Patients insight and judgment impaired Diagnostics Vital Signs (24Hr): Vital Signs - 24 hr 07/12/25 19:43 07/13/25 08:00 Temperature 99.0 F 97.7 F Pulse Rate 83 102 H Respiratory Rate 18 16 Blood Pressure 107/70 130/61 Pulse Oximetry 100 100 Oxygen Delivery Method Room Air Room Air BMI result Body Mass Index 20.8 Labs 06/30/25 07:49 06/30/25 07:49 Labs: Laboratory Results - last 48 hr 07/13/25 07:36 Absolute Neuts (auto) 4.6 Medications Medications Current Medications Acetaminophen (Acetaminophen 325 Mg Tablet) 650 mg PO Q6H PRN PRN Reason: Headache/Pain, Scale 1-10 Last Admin: 07/06/25 14:36 Dose: 650 mg Al Hydroxide/Mg Hydroxide (Magnesium Hydrox/Alum Hydrox 30 Ml Oral.Susp) 30 ml PO Q6H PRN PRN Reason: Heartburn/Nausea Buspirone HCl (Buspirone Hcl 5 Mg Tablet) 15 mg PO BID [facility] Last Admin: 07/13/25 08:31 Dose: 15 mg Clozapine (Clozapine 25 Mg Tablet) 25 mg PO BEDTIME RATNA Last Admin: 07/12/25 22:27 Dose: 25 mg Cyclobenzaprine HCl (Cyclobenzaprine Hcl 10 Mg Tablet) 10 mg PO TID PRN PRN Reason: Muscle Spasm Hydroxyzine HCl (Hydroxyzine Hcl 25 Mg Tablet) 25 mg PO Q6H PRN PRN Reason: mild anxiety Last Admin: 06/29/25 17:08 Dose: 25 mg Ibuprofen (Ibuprofen 600 Mg Tablet) 600 mg PO Q6H PRN PRN Reason: Pain, Severe (Pain Scale 7-10) Last Admin: 07/12/25 12:57 Dose: 600 mg Lamotrigine (Lamotrigine 25 Mg Tablet) 125 mg PO BEDTIME RATNA Last Admin: 07/12/25 22:27 Dose: 125 mg Levothyroxine Sodium (Levothyroxine Sodium 75 Mcg Tablet) 75 mcg PO DAILY@0600 RATNA Last Admin: 07/13/25 06:44 Dose: 75 mcg Lidocaine HCl (Lidocaine 4 % Cream Kit) 1 appl TOPICAL ONCE PRN; Protocol PRN Reason: lower back pain Last Admin: 07/10/25 16:45 Dose: 1 appl Lorazepam (Lorazepam 0.5 Mg Tablet) 0.5 mg PO DAILY PRN PRN Reason: severe anxiety Last Admin: 07/04/25 10:04 Dose: 0.5 mg Magnesium Hydroxide (Milk Of Magnesia 30 Ml Oral.Susp) 30 ml PO DAILY PRN PRN Reason: Constipation Multivitamins/Vitamin C (Multivitamin Tablet) 1 tab PO DAILY RATNA Last Admin: 07/13/25 08:31 Dose: 1 tab Nicotine Polacrilex (Nicotine Polacrilex 2 Mg Gum) 4 mg BUCCAL Q2H PRN PRN Reason: Nicotine Cravings Prazosin HCl (Prazosin Hcl 1 Mg Capsule) 2 mg PO BEDTIME RATNA; Protocol Last Admin: 07/12/25 22:27 Dose: 2 mg Quetiapine Fumarate (Quetiapine Fumarate 100 Mg Tablet) 100 mg PO BEDTIME RATNA Last Admin: 07/12/25 22:27 Dose: 100 mg Risperidone (Risperidone 1 Mg Tablet) 1 mg PO DAILY PRN PRN Reason: disorganized behavior Trazodone HCl (Trazodone Hcl 50 Mg Tablet) 50 mg PO BEDTIME MRX1 PRN PRN Reason: Insomnia Allergies Allergies Allergy/AdvReac Type Severity Reaction Status Date / Time No Known Allergies Allergy Verified 06/24/25 17:49 Assessment & Plan Assessment & Plan (1) Schizoaffective disorder, bipolar type: Status: Acute Code(s): F25.0 - Schizoaffective disorder, bipolar type (2) Depression: Status: Acute Code(s): F32.A - Depression, unspecified Plan HPI: Pt is a 40 year old female who presented to the ED after being dropped off by a friend . Upon arrival to the ED she appeared increasingly paranoid and indicated that she was fearful she was being drugged by her and voiced concern for her and her children's safety. Pt stated that she wanted to have her medications checked as things are just off, my daily routine is off . Pt provided inconsistent information as evidence by conflicting information from what she disclosed to the ED provider upon arrival and at times appears to be a poor historian as a result of her current presentation. She remained guarded at this time and at times appeared to be minimizing symptoms as well as medication seeking as she remained primarily focused on her controlled substances that she is currently prescribed. It is to be noted. Formulation/clinical reasoning: Increasing psychotic behaviors, paranoid, disorganized thought process. Family members have safety concern regarding patient mental status at this current time. Even the above information, patient will be benefit in restrictive environment, medication management, and refer patient back to outpatient psychiatric services. Hospital course: 06/25/25: Continue with home medications. In my impression, patient may think that she just come here to get refill of her medication and will be sent home. However, other time she also stating that she has not come here for medication change as if she needs a refilled she can get it feel from her OP provider. Ativan 1 mg q.4 hours p.r.n. for severe anxiety. Home dose was only 0.5 b.i.d. p.r.n.. Stimulants: Continue with stimulants, we will monitor if it causing more psychotic behavior. Questioned if patient overused her Adderall information regarding recent weight lost, and be psychotic. 06/26/2025: Continue to encourage medication adherence and engagement. 06/27: accepting medications and requested prazosin 2mg be restarted 06/28 Patient is a limited historian due to disorganized speech and behavior. Throughout interview patient looking off in the distance, sometimes very latent responses, appearing to be internally preoccupied; frequently not finishing sentences, giving cryptic, vague and frequently unrelated responses to discussion questions. Lye Peel Operator introduces himself has a doctor... Patient then asks are you a Dr.? I am not a doctor. I am Daphne... On inquiry about why patient came to the hospital, she replies, with speech latency and in broken sentences I came... I wanted medications reviewed... And wanted a toxicology... The unknown.... Things got a little unhinged... The court room... Domestic stuff. Patient goes on I was looking for my medications at my house... Interviews, talking, trying to survive all the time... The reality of things is unclear to me... Of the events. Lye Peel Operator asks for clarification to which patient says, again after significant latency, the court house... I just want my Garrett back... (she later clarifies that the [place] is a multi tool knife). Patient then started to refer to another patient, saying he wants a tape measure... I have one... I can hang out... There is time and things will be revealed... Whenever thing comes together... Family and judges and worldly stuff.. Lye Peel Operator asks about her earlier concern that her is poisoning her... Patient remained silent for awhile and then says I checked my meds... When I went to talk to them... I would like to see the toxicology... My back was sweating.. I was questioning reality generally... There was a 911 call... She then told parts data writer she questioned the reality of this conversation but could not clarify further but then some something about getting her red ticket.. Regarding how she got to the hospital, patient said officers came to my house and talked to my kids...my daughter called them...since i was not feeling safe.....i know my very well...it just wasnt a good think going on...i wasn't...no...it got real.....im in survival mode...it started getting scary and dangerous...my was getting a little...red flaggs...it started to be an unsafe situation..he [] was not himself... Patient also said that her best friend Stephanie Holder dropped her off at the hospital; not clear how she got here. Patient gave parts data writer permission to talk to Stephanie and also to collect information from her . denies drugs or taking her prescribed medications in excess denies hx manic episodes; yes AH but nothing to be alarmed about... Nurse Note by Karon Arora RN 06/25/25 09:54 - This RN spoke to [facility] regarding the situation that led to being present here in the ER. Per [facility] employee, yesterday there was an argument between the patient and her where both her and her received a crisis consult. Per [facility] employee, patient was originally seen by [facility] mobile crisis and it was determined she could go to respite, however, shortly after, crisis was called back to the home and the patient was sent here to the hospital. When the [facility] employee interviewed the pts 14 year old son, he reports that his mom has been acting really paranoid about things as of recently. (daughter 14yo, Son 11yo) 06/29 Patient remains with psychotic symptoms and said she thinks maybe he[] wants to kill or hurt me... Lye Peel Operator inquired and patient kept coming back to the fact that he put her home medications in the wrong pill box compartments... and this is what made her think he is trying to kill her... Patient however was willing to entertain that perhaps this might not be true. However, she is significantly more organized today than she was yesterday, talking in full sentences sticking to the topic at hand. She agrees that yesterday she was feeling much more confused she is thinking more clearly today. Patient's father present who has been meeting with her daily since this admission and who agrees that she is significantly better and headed back towards her regular self. Patient agreed to sign a CV and also agreed to have Vyvanse and bupropion discontinued for now; she also agreed to take risperidone which parts data writer explained was hopefully just for few days. IMPRESSION: Patient demonstrating psychotic symptoms, auditory hallucinations, paranoid delusions and disorganized speech and behavior; patient is certainly internally preoccupied. So far collateral reports that patient has no history of psychosis or bipolar disorder. After gathering collateral from patient's and father, both deny any history of psychosis or sukhdeep were similar such episodes. Both speculate patient may have abused prescription medications including Vyvanse (and reports may have used crack cocaine) accounting for triggering this episode. Frequently substance induced psychosis resolves within 1-2 days (though can also persist for 2 or more weeks); however patient has remained on both Vyvanse and Wellbutrin which could prolonged symptoms (as both can increase dopamine). Will hold both Vyvanse and Wellbutrin. Also started risperidone low-dose to help with dopamine blockade. 06/30 Patient remains with paranoid ideation; refused Risperdal. On inquiry patient said she does not think she needs it but parts data writer continue to educate patient on medication and she said she would start taking it. Patient with some increase disorganized behaviors today, seen self-dialoguing and responding to internal stimuli at 1 point standing aimlessly in hallway, not moving. Slept only 4 hours -hopefully patient will start taking risperidone 07/01 patient remains with intermittent odd and disorganized behaviors, talking to herself in the wetzel; remains with paranoid ideations however is able to be more logical in conversation and for longer periods of time. Patient's sister visiting who gave history that patient started to a peer to be manic about 5 months ago which correlates to increased Vyvanse dose (hyperactive, rapid speech, little sleep-which patient concurred); patient's sister volunteered that she has schizoaffective disorder and has been on medication which was a surprise to patient but with this news was willing to take Risperdal 07/02 patient doing much better. Patient is more organized in both speech and behavior. Patient did take Risperdal twice yesterday but found it made her tired and did not want it anymore. However she agrees it may have been helpful. Patient for the 1st time able to talk much more logically and accurately about history and shares with parts data writer that she has been diagnosed with bipolar disorder in the past and was at 1 point on Seroquel around 400 mg and then stabilized on Lamictal 200 mg. Patient said that she had been doing well for so long that her current psychiatric provider agreed to start peeling away her medications and Seroquel was lowered to 100 mg Lamictal tapered down to 50 mg. This taper coincided with patient being started on stimulant medication for ADHD and her Vyvanse was titrated. Patient agrees that it is very possible that the tapering off of Lamictal (she may have been on only Lamictal and not Seroquel for quite awhile) the titration of a stimulant medication is what triggered manic episode which worsened over the past few weeks and included significant paranoid ideations. Patient agrees to get back on Lamictal which caused no side effects. -remains with paranoid ideations about her but they are less intense and patient more open to reality testing; of note patient's does have schizophrenia 07/05 patient continues to be improved, overall organized in speech and behavior able to discuss diagnosis and treatment appropriately 07/06Patient more disorganized doing bizarre, odd hand movements during interview. Patient mimicking/mirroring the hand gestures of whomever is talking; some echolalia as well. Patient remains very vague when discussing her thoughts. Continues to have some paranoid ideations about her however patient's sister does agree that patient's is excessively controlling and for the past 2 years, the sister has noticed that he dictates how long and with whom patient can spend time. Patient struggles to have insight into her behaviors including when they are pointed out in real-time. However she does agree to start perphenazine\ -had discussed risks/side effects of antipsychotics 07/07 Patient denies any medications side effects. Continues to have disorganized in behaviors and now hiding in the corners of the hallway throughout the milieu; continues to mirror movements of others with intermittent echolalia. Remains very vague on what he is thinking and keeps saying she is just waiting for it to all come together. 07/08 Patient Increasingly disorganized; standing in the corner for hours, peering around it into the milieu, not talking. Patient guarded on approach. Initially refused perphenazine but was willing to discuss it with parts data writer and patient said she does not feel like herself and hoped that the medication would help repair that. Patient agreed to increasing perphenazine to 4 mg t.i.d. -regarding diagnosis, patient has past diagnosis of bipolar disorder which reportedly was treated with Lamictal and before that Seroquel. Patient is not particularly manic but is definitely with psychotic symptoms. Will provisionally change diagnosis to schizoaffective disorder 07/09 little better today with increased dose of perphenazine which patient has been taking. She denies medication side effects and agrees that medications are helpful Still odd but less so and seems to be more organized. Still with limited insight but reports she is feeling better and more like herself though can not specifically articulate why. Patient said she had a good talk with her daughter which was helpful; also talked with the telling him she wants to separate which she said was a long time coming -seems that perphenazine is helping; will continue 07/10 Patient agitated on the unit today and yelling in the hallway. Lye Peel Operator discussed this with patient who expresses concern about her being with her children. pt says she gave him bad news about their marriage and is worried about his mental state. She says he has had hallucinated/paranoid delusions about their son, a few years ago. Today, she can not say what he did or said that worried her...other than vague references to his composure...reactions...like he's not in touch with reality... But with no specifics...She agrees perhaps he could just be anxious... She also says she believes he has been unmedicated for a long time She then told her parts data writer that Juan Miguel [son] talks in code to me, like I asked 'what are you wearing to school today...' and he said 'my pink Allan shirt tomorrow...' but he does not have a pink allan shirt, which means he's talking to me in code... She said this exchange happened the week prior to this admission and that he is talking in code her so his father will not know. Patient then showed parts data writer a picture her son made which her brought in for her during this visit; she insisted him doing so was manipulative though parts data writer could not understand why; patient showed parts data writer a letter her wrote to her which was generally about how he is hoping for her and he wished to get help her. Patient says she thinks it is weird though parts data writer could not understand why. After this encounter with her , she l called PD for wellness check on son; check was completed and PD informed her that her son is OK. She signed a 3 day notice 07/11 Patient refuse perphenazine, last night and this morning. Patient barely slept and staff reports she was pacing the wetzel throughout the night. On inquiry patient said that the afternoon dose was making her feel tired; regarding the bedtime dose, she said she just does not want to take this medication and wants to try something different in the same category. Lye Peel Operator offered haloperidol with which she agreed. Impression: Patient remains with paranoid ideations and no insight into her own illness. She has some hypomanic behaviors; most of her problematic symptoms have been psychosis so have been focusing on antipsychotic however patient may benefit from traditional mood stabilizer; will continue to titrate Lamictal however this may not be adequate. Will hold Lexapro. -if patient willing will also consider increasing Seroquel at bedtime though concern is it would cause daytime sedation and she would refuse it. 07/12 little more organized, angry at her ; does not want Haldol, saying it makes her too sedated and agreed to Clozaril after reviewing risks/side effects -patient says she will retract her 3 day and stay a little longer 07/13 more odd behaviors today, wandering, sometimes hiding in hallway; other times social with peers. Pt witnessed self-dialouging in bedroom. Agrees to titration of clozapine. Agrees to remain on the unit longer for treatment -when patient takes perphenazine or Haldol, odd behaviors seemed to clear up; currently those have been discontinued and she is on low-dose of clozapine which is being titrated Plan Three day q15 Increase to clozapine 50 mg q.h.s.; will titrate by 25 mg a day as clinically indicated DC Haldol Increased Lamictal to 125 mg: Used to be on 200 and has been on 50 mg for months HOLD Wellbutrin 300 mg daily: will monitor for psychosis. HOLD Lexapro 10 mg daily since hypomanic behaviors HOLD Vyvanse DC perphenazine; patient did not want it, saying it made her sedated DC risperidone; patient does not like and patient is improved P.R.N. Zyprexa 5mg q.4 hours p.r.n. for agitation/psychosis Seroquel 100 at bedtime for sleep. BuSpar 15 mg twice a day. Patient educated on: diagnosis and medication risk/benefits Informed Consent: understands, does not understand and further education needed Reason for continued inpatient stay Substantial Risk for: inability to function and rapid decompensation Time Spent With Patient Time: Total time managing care of this patient today ____ minutes.
--- NOTE | 2025-07-13 16:38 | HO.PSYCHPN ---
Subjective Subjective Date of Service: 07/13/25 Reason For Visit: Recurrent major depression with psychosis Diagnostics Vital Signs (24Hr): Vital Signs - 24 hr 07/12/25 19:43 07/13/25 08:00 Temperature 99.0 F 97.7 F Pulse Rate 83 102 H Respiratory Rate 18 16 Blood Pressure 107/70 130/61 Pulse Oximetry 100 100 Oxygen Delivery Method Room Air Room Air BMI result Body Mass Index 20.8 Labs 06/30/25 07:49 06/30/25 07:49 Labs: Laboratory Results - last 48 hr 07/13/25 07:36 Absolute Neuts (auto) 4.6 Medications Medications Current Medications Acetaminophen (Acetaminophen 325 Mg Tablet) 650 mg PO Q6H PRN PRN Reason: Headache/Pain, Scale 1-10 Last Admin: 07/06/25 14:36 Dose: 650 mg Al Hydroxide/Mg Hydroxide (Magnesium Hydrox/Alum Hydrox 30 Ml Oral.Susp) 30 ml PO Q6H PRN PRN Reason: Heartburn/Nausea Buspirone HCl (Buspirone Hcl 5 Mg Tablet) 15 mg PO BID [facility] Last Admin: 07/13/25 08:31 Dose: 15 mg Clozapine (Clozapine 25 Mg Tablet) 50 mg PO BEDTIME [facility] Cyclobenzaprine HCl (Cyclobenzaprine Hcl 10 Mg Tablet) 10 mg PO TID PRN PRN Reason: Muscle Spasm Hydroxyzine HCl (Hydroxyzine Hcl 25 Mg Tablet) 25 mg PO Q6H PRN PRN Reason: mild anxiety Last Admin: 06/29/25 17:08 Dose: 25 mg Ibuprofen (Ibuprofen 600 Mg Tablet) 600 mg PO Q6H PRN PRN Reason: Pain, Severe (Pain Scale 7-10) Last Admin: 07/12/25 12:57 Dose: 600 mg Lamotrigine (Lamotrigine 25 Mg Tablet) 125 mg PO BEDTIME [facility] Last Admin: 07/12/25 22:27 Dose: 125 mg Levothyroxine Sodium (Levothyroxine Sodium 75 Mcg Tablet) 75 mcg PO DAILY@0600 [facility] Last Admin: 07/13/25 06:44 Dose: 75 mcg Lidocaine HCl (Lidocaine 4 % Cream Kit) 1 appl TOPICAL ONCE PRN; Protocol PRN Reason: lower back pain Last Admin: 07/10/25 16:45 Dose: 1 appl Lorazepam (Lorazepam 0.5 Mg Tablet) 0.5 mg PO DAILY PRN PRN Reason: severe anxiety Last Admin: 07/04/25 10:04 Dose: 0.5 mg Magnesium Hydroxide (Milk Of Magnesia 30 Ml Oral.Susp) 30 ml PO DAILY PRN PRN Reason: Constipation Multivitamins/Vitamin C (Multivitamin Tablet) 1 tab PO DAILY [facility] Last Admin: 07/13/25 08:31 Dose: 1 tab Nicotine Polacrilex (Nicotine Polacrilex 2 Mg Gum) 4 mg BUCCAL Q2H PRN PRN Reason: Nicotine Cravings Prazosin HCl (Prazosin Hcl 1 Mg Capsule) 2 mg PO BEDTIME [facility]; Protocol Last Admin: 07/12/25 22:27 Dose: 2 mg Quetiapine Fumarate (Quetiapine Fumarate 100 Mg Tablet) 100 mg PO BEDTIME [facility] Last Admin: 07/12/25 22:27 Dose: 100 mg Risperidone (Risperidone 1 Mg Tablet) 1 mg PO DAILY PRN PRN Reason: disorganized behavior Trazodone HCl (Trazodone Hcl 50 Mg Tablet) 50 mg PO BEDTIME MRX1 PRN PRN Reason: Insomnia Allergies Allergies Allergy/AdvReac Type Severity Reaction Status Date / Time No Known Allergies Allergy Verified 06/24/25 17:49 Assessment & Plan Assessment & Plan (1) Schizoaffective disorder, bipolar type: Status: Acute Code(s): F25.0 - Schizoaffective disorder, bipolar type (2) Depression: Status: Acute Code(s): F32.A - Depression, unspecified Plan HPI: Pt is a 40 year old female who presented to the ED after being dropped off by a friend . Upon arrival to the ED she appeared increasingly paranoid and indicated that she was fearful she was being drugged by her and voiced concern for her and her children's safety. Pt stated that she wanted to have her medications checked as things are just off, my daily routine is off . Pt provided inconsistent information as evidence by conflicting information from what she disclosed to the ED provider upon arrival and at times appears to be a poor historian as a result of her current presentation. She remained guarded at this time and at times appeared to be minimizing symptoms as well as medication seeking as she remained primarily focused on her controlled substances that she is currently prescribed. It is to be noted. Formulation/clinical reasoning: Increasing psychotic behaviors, paranoid, disorganized thought process. Family members have safety concern regarding patient mental status at this current time. Even the above information, patient will be benefit in restrictive environment, medication management, and refer patient back to outpatient psychiatric services. Hospital course: 06/25/25: Continue with home medications. In my impression, patient may think that she just come here to get refill of her medication and will be sent home. However, other time she also stating that she has not come here for medication change as if she needs a refilled she can get it feel from her OP provider. Ativan 1 mg q.4 hours p.r.n. for severe anxiety. Home dose was only 0.5 b.i.d. p.r.n.. Stimulants: Continue with stimulants, we will monitor if it causing more psychotic behavior. Questioned if patient overused her Adderall information regarding recent weight lost, and be psychotic. 06/26/2025: Continue to encourage medication adherence and engagement. 06/27: accepting medications and requested prazosin 2mg be restarted 06/28 Patient is a limited historian due to disorganized speech and behavior. Throughout interview patient looking off in the distance, sometimes very latent responses, appearing to be internally preoccupied; frequently not finishing sentences, giving cryptic, vague and frequently unrelated responses to discussion questions. Travel Occupational Therapist introduces himself has a doctor... Patient then asks are you a Dr.? I am not a doctor. I am Daphne... On inquiry about why patient came to the hospital, she replies, with speech latency and in broken sentences I came... I wanted medications reviewed... And wanted a toxicology... The unknown.... Things got a little unhinged... The court room... Domestic stuff. Patient goes on I was looking for my medications at my house... Interviews, talking, trying to survive all the time... The reality of things is unclear to me... Of the events. Travel Occupational Therapist asks for clarification to which patient says, again after significant latency, the court house... I just want my Garrett back... (she later clarifies that the Garrett is a multi tool knife). Patient then started to refer to another patient, saying he wants a tape measure... I have one... I can hang out... There is time and things will be revealed... Whenever thing comes together... Family and judges and worldly stuff.. Travel Occupational Therapist asks about her earlier concern that her is poisoning her... Patient remained silent for awhile and then says I checked my meds... When I went to talk to them... I would like to see the toxicology... My back was sweating.. I was questioning reality generally... There was a 911 call... She then told public relations writer she questioned the reality of this conversation but could not clarify further but then some something about getting her red ticket.. Regarding how she got to the hospital, patient said officers came to my house and talked to my kids...my daughter called them...since i was not feeling safe.....i know my very well...it just wasnt a good think going on...i wasn't...no...it got real.....im in survival mode...it started getting scary and dangerous...my was getting a little...red flaggs...it started to be an unsafe situation..he [] was not himself... Patient also said that her best friend Stephanie Holder dropped her off at the hospital; not clear how she got here. Patient gave public relations writer permission to talk to Stephanie and also to collect information from her . denies drugs or taking her prescribed medications in excess denies hx manic episodes; yes AH but nothing to be alarmed about... Nurse Note by Karon Arora RN 06/25/25 09:54 - This RN spoke to [facility] regarding the situation that led to being present here in the ER. Per [facility] employee, yesterday there was an argument between the patient and her where both her and her received a crisis consult. Per [facility] employee, patient was originally seen by [facility] crisis and it was determined she could go to respite, however, shortly after, crisis was called back to the home and the patient was sent here to the hospital. When the [facility] employee interviewed the pts 14 year old son, he reports that his mom has been acting really paranoid about things as of recently. (daughter 14yo, Son 11yo) 06/29 Patient remains with psychotic symptoms and said she thinks maybe he[] wants to kill or hurt me... Travel Occupational Therapist inquired and patient kept coming back to the fact that he put her home medications in the wrong pill box compartments... and this is what made her think he is trying to kill her... Patient however was willing to entertain that perhaps this might not be true. However, she is significantly more organized today than she was yesterday, talking in full sentences sticking to the topic at hand. She agrees that yesterday she was feeling much more confused she is thinking more clearly today. Patient's father present who has been meeting with her daily since this admission and who agrees that she is significantly better and headed back towards her regular self. Patient agreed to sign a CV and also agreed to have Vyvanse and bupropion discontinued for now; she also agreed to take risperidone which public relations writer explained was hopefully just for few days. IMPRESSION: Patient demonstrating psychotic symptoms, auditory hallucinations, paranoid delusions and disorganized speech and behavior; patient is certainly internally preoccupied. So far collateral reports that patient has no history of psychosis or bipolar disorder. After gathering collateral from patient's and father, both deny any history of psychosis or sukhdeep were similar such episodes. Both speculate patient may have abused prescription medications including Vyvanse (and reports may have used crack cocaine) accounting for triggering this episode. Frequently substance induced psychosis resolves within 1-2 days (though can also persist for 2 or more weeks); however patient has remained on both Vyvanse and Wellbutrin which could prolonged symptoms (as both can increase dopamine). Will hold both Vyvanse and Wellbutrin. Also started risperidone low-dose to help with dopamine blockade. 06/30 Patient remains with paranoid ideation; refused Risperdal. On inquiry patient said she does not think she needs it but public relations writer continue to educate patient on medication and she said she would start taking it. Patient with some increase disorganized behaviors today, seen self-dialoguing and responding to internal stimuli at 1 point standing aimlessly in hallway, not moving. Slept only 4 hours -hopefully patient will start taking risperidone 07/01 patient remains with intermittent odd and disorganized behaviors, talking to herself in the wetzel; remains with paranoid ideations however is able to be more logical in conversation and for longer periods of time. Patient's sister visiting who gave history that patient started to a peer to be manic about 5 months ago which correlates to increased Vyvanse dose (hyperactive, rapid speech, little sleep-which patient concurred); patient's sister volunteered that she has schizoaffective disorder and has been on medication which was a surprise to patient but with this news was willing to take Risperdal 07/02 patient doing much better. Patient is more organized in both speech and behavior. Patient did take Risperdal twice yesterday but found it made her tired and did not want it anymore. However she agrees it may have been helpful. Patient for the 1st time able to talk much more logically and accurately about history and shares with public relations writer that she has been diagnosed with bipolar disorder in the past and was at 1 point on Seroquel around 400 mg and then stabilized on Lamictal 200 mg. Patient said that she had been doing well for so long that her current psychiatric provider agreed to start peeling away her medications and Seroquel was lowered to 100 mg Lamictal tapered down to 50 mg. This taper coincided with patient being started on stimulant medication for ADHD and her Vyvanse was titrated. Patient agrees that it is very possible that the tapering off of Lamictal (she may have been on only Lamictal and not Seroquel for quite awhile) the titration of a stimulant medication is what triggered manic episode which worsened over the past few weeks and included significant paranoid ideations. Patient agrees to get back on Lamictal which caused no side effects. -remains with paranoid ideations about her but they are less intense and patient more open to reality testing; of note patient's does have schizophrenia 07/05 patient continues to be improved, overall organized in speech and behavior able to discuss diagnosis and treatment appropriately 07/06Patient more disorganized doing bizarre, odd hand movements during interview. Patient mimicking/mirroring the hand gestures of whomever is talking; some echolalia as well. Patient remains very vague when discussing her thoughts. Continues to have some paranoid ideations about her however patient's sister does agree that patient's is excessively controlling and for the past 2 years, the sister has noticed that he dictates how long and with whom patient can spend time. Patient struggles to have insight into her behaviors including when they are pointed out in real-time. However she does agree to start perphenazine\ -had discussed risks/side effects of antipsychotics 07/07 Patient denies any medications side effects. Continues to have disorganized in behaviors and now hiding in the corners of the hallway throughout the milieu; continues to mirror movements of others with intermittent echolalia. Remains very vague on what he is thinking and keeps saying she is just waiting for it to all come together. 07/08 Patient Increasingly disorganized; standing in the corner for hours, peering around it into the milieu, not talking. Patient guarded on approach. Initially refused perphenazine but was willing to discuss it with public relations writer and patient said she does not feel like herself and hoped that the medication would help repair that. Patient agreed to increasing perphenazine to 4 mg t.i.d. -regarding diagnosis, patient has past diagnosis of bipolar disorder which reportedly was treated with Lamictal and before that Seroquel. Patient is not particularly manic but is definitely with psychotic symptoms. Will provisionally change diagnosis to schizoaffective disorder 07/09 little better today with increased dose of perphenazine which patient has been taking. She denies medication side effects and agrees that medications are helpful Still odd but less so and seems to be more organized. Still with limited insight but reports she is feeling better and more like herself though can not specifically articulate why. Patient said she had a good talk with her daughter which was helpful; also talked with the telling him she wants to separate which she said was a long time coming -seems that perphenazine is helping; will continue 07/10 Patient agitated on the unit today and yelling in the hallway. Travel Occupational Therapist discussed this with patient who expresses concern about her being with her children. pt says she gave him bad news about their marriage and is worried about his mental state. She says he has had hallucinated/paranoid delusions about their son, a few years ago. Today, she can not say what he did or said that worried her...other than vague references to his composure...reactions...like he's not in touch with reality... But with no specifics...She agrees perhaps he could just be anxious... She also says she believes he has been unmedicated for a long time She then told her public relations writer that Juan Miguel [son] talks in code to me, like I asked 'what are you wearing to school today...' and he said 'my pink Allan shirt tomorrow...' but he does not have a pink allan shirt, which means he's talking to me in code... She said this exchange happened the week prior to this admission and that he is talking in code her so his father will not know. Patient then showed public relations writer a picture her son made which her brought in for her during this visit; she insisted him doing so was manipulative though public relations writer could not understand why; patient showed public relations writer a letter her wrote to her which was generally about how he is hoping for her and he wished to get help her. Patient says she thinks it is weird though public relations writer could not understand why. After this encounter with her , she l called PD for wellness check on son; check was completed and PD informed her that her son is OK. She signed a 3 day notice 07/11 Patient refuse perphenazine, last night and this morning. Patient barely slept and staff reports she was pacing the wetzel throughout the night. On inquiry patient said that the afternoon dose was making her feel tired; regarding the bedtime dose, she said she just does not want to take this medication and wants to try something different in the same category. Travel Occupational Therapist offered haloperidol with which she agreed. Impression: Patient remains with paranoid ideations and no insight into her own illness. She has some hypomanic behaviors; most of her problematic symptoms have been psychosis so have been focusing on antipsychotic however patient may benefit from traditional mood stabilizer; will continue to titrate Lamictal however this may not be adequate. Will hold Lexapro. -if patient willing will also consider increasing Seroquel at bedtime though concern is it would cause daytime sedation and she would refuse it. 07/12 little more organized, angry at her ; does not want Haldol, saying it makes her too sedated and agreed to Clozaril after reviewing risks/side effects -patient says she will retract her 3 day and stay a little longer Plan Three day q15 Start clozapine 25 mg q.h.s.; will titrate DC Haldol Increased Lamictal to 125 mg: Used to be on 200 and has been on 50 mg for months HOLD Wellbutrin 300 mg daily: will monitor for psychosis. HOLD Lexapro 10 mg daily since hypomanic behaviors HOLD Vyvanse DC perphenazine; patient did not want it, saying it made her sedated DC risperidone; patient does not like and patient is improved P.R.N. Zyprexa 5mg q.4 hours p.r.n. for agitation/psychosis Seroquel 100 at bedtime for sleep. BuSpar 15 mg twice a day. Time Spent With Patient Time: Total time managing care of this patient today ____ minutes.
[2025-07-13 19:55] VITALS: BP 139/93; PULSE 86; RESP 16; TEMP 35.9; O2SAT 100
[2025-07-14 00:12] VITALS: BP 124/82
[2025-07-14 08:28] VITALS: BP 96/60; PULSE 99; RESP 16; TEMP 36.9; O2SAT 100
--- NOTE | 2025-07-14 09:55 | P.PNPSI_ITS ---
Subjective Subjective Date of Service: 07/14/25 Reason For Visit: Recurrent major depression with psychosis Subjective Notes: Conditional Voluntary Medical Problems Affecting Mental Status: No Interim History: Patient found ambulating in the hallway. She reports moderate anxiety. She denies depression. Denies paranoia. She states that she feels safe here. Per nursing report, she slept 5-6 hours last night. She denies SI/HI/AVH. Per social studies teacher, family meeting scheduled next week. Medication Compliance: Yes Side effects from medications: No Attending Groups: Intermittent Review of Systems Acute medical concerns: No Mental Status Exam Mental Status Exam Narrative: Appearance: Casually dressed, adequate hygiene and grooming Behavior: Calm and cooperative throughout the interview. Eye contact is appropriate, and there are no signs of psychomotor agitation or retardation Speech: Normal volume and prosody Thought process: Logical and goal-directed Thought content: On treatment Mood: Calm Affect: Mood-congruent SI: Denies HI: Denies VH/AH: None Delusions: None Insight/judgment: Fair insight and judgment Memory/cog: Alert, oriented x 4. grossly intact to conversational testing Diagnostics Vital Signs (24Hr): Vital Signs - 24 hr 07/13/25 19:55 07/14/25 00:12 07/14/25 08:28 Temperature 96.6 F L 98.5 F Pulse Rate 86 99 Respiratory Rate 16 16 Blood Pressure 139/93 H 124/82 96/60 Pulse Oximetry 100 100 Oxygen Delivery Method Room Air Room Air BMI result Body Mass Index 20.8 Labs 06/30/25 07:49 06/30/25 07:49 Labs: Laboratory Results - last 48 hr 07/13/25 07:36 Absolute Neuts (auto) 4.6 Medications Medications Current Medications Acetaminophen (Acetaminophen 325 Mg Tablet) 650 mg PO Q6H PRN PRN Reason: Headache/Pain, Scale 1-10 Last Admin: 07/06/25 14:36 Dose: 650 mg Al Hydroxide/Mg Hydroxide (Magnesium Hydrox/Alum Hydrox 30 Ml Oral.Susp) 30 ml PO Q6H PRN PRN Reason: Heartburn/Nausea Buspirone HCl (Buspirone Hcl 5 Mg Tablet) 15 mg PO BID RATNA Last Admin: 07/14/25 08:30 Dose: 15 mg Clozapine (Clozapine 25 Mg Tablet) 75 mg PO BEDTIME [facility] Cyclobenzaprine HCl (Cyclobenzaprine Hcl 10 Mg Tablet) 10 mg PO TID PRN PRN Reason: Muscle Spasm Hydroxyzine HCl (Hydroxyzine Hcl 25 Mg Tablet) 25 mg PO Q6H PRN PRN Reason: mild anxiety Last Admin: 06/29/25 17:08 Dose: 25 mg Ibuprofen (Ibuprofen 600 Mg Tablet) 600 mg PO Q6H PRN PRN Reason: Pain, Severe (Pain Scale 7-10) Last Admin: 07/12/25 12:57 Dose: 600 mg Lamotrigine (Lamotrigine 25 Mg Tablet) 125 mg PO BEDTIME RATNA Last Admin: 07/14/25 00:14 Dose: 125 mg Levothyroxine Sodium (Levothyroxine Sodium 75 Mcg Tablet) 75 mcg PO DAILY@0600 RATNA Last Admin: 07/14/25 07:14 Dose: 75 mcg Lidocaine HCl (Lidocaine 4 % Cream Kit) 1 appl TOPICAL ONCE PRN; Protocol PRN Reason: lower back pain Last Admin: 07/10/25 16:45 Dose: 1 appl Lorazepam (Lorazepam 0.5 Mg Tablet) 0.5 mg PO DAILY PRN PRN Reason: severe anxiety Last Admin: 07/04/25 10:04 Dose: 0.5 mg Magnesium Hydroxide (Milk Of Magnesia 30 Ml Oral.Susp) 30 ml PO DAILY PRN PRN Reason: Constipation Multivitamins/Vitamin C (Multivitamin Tablet) 1 tab PO DAILY RATNA Last Admin: 07/14/25 08:30 Dose: 1 tab Nicotine Polacrilex (Nicotine Polacrilex 2 Mg Gum) 4 mg BUCCAL Q2H PRN PRN Reason: Nicotine Cravings Prazosin HCl (Prazosin Hcl 1 Mg Capsule) 2 mg PO BEDTIME RATNA; Protocol Last Admin: 07/14/25 00:12 Dose: 2 mg Quetiapine Fumarate (Quetiapine Fumarate 100 Mg Tablet) 100 mg PO BEDTIME RATNA Last Admin: 07/14/25 00:14 Dose: 100 mg Risperidone (Risperidone 1 Mg Tablet) 1 mg PO DAILY PRN PRN Reason: disorganized behavior Trazodone HCl (Trazodone Hcl 50 Mg Tablet) 50 mg PO BEDTIME MRX1 PRN PRN Reason: Insomnia Allergies Allergies Allergy/AdvReac Type Severity Reaction Status Date / Time No Known Allergies Allergy Verified 06/24/25 17:49 Assessment & Plan Assessment & Plan (1) Schizoaffective disorder, bipolar type: Status: Acute Code(s): F25.0 - Schizoaffective disorder, bipolar type (2) Depression: Status: Acute Code(s): F32.A - Depression, unspecified Plan HPI: Pt is a 40 year old female who presented to the ED after being dropped off by a friend . Upon arrival to the ED she appeared increasingly paranoid and indicated that she was fearful she was being drugged by her and voiced concern for her and her children's safety. Pt stated that she wanted to have her medications checked as things are just off, my daily routine is off . Pt provided inconsistent information as evidence by conflicting information from what she disclosed to the ED provider upon arrival and at times appears to be a poor historian as a result of her current presentation. She remained guarded at this time and at times appeared to be minimizing symptoms as well as medication seeking as she remained primarily focused on her controlled substances that she is currently prescribed. It is to be noted. Formulation/clinical reasoning: Increasing psychotic behaviors, paranoid, disorganized thought process. Family members have safety concern regarding patient mental status at this current time. Even the above information, patient will be benefit in restrictive environment, medication management, and refer patient back to outpatient psychiatric services. Hospital course: 06/25/25: Continue with home medications. In my impression, patient may think that she just come here to get refill of her medication and will be sent home. However, other time she also stating that she has not come here for medication change as if she needs a refilled she can get it feel from her OP provider. Ativan 1 mg q.4 hours p.r.n. for severe anxiety. Home dose was only 0.5 b.i.d. p.r.n.. Stimulants: Continue with stimulants, we will monitor if it causing more psychotic behavior. Questioned if patient overused her Adderall information regarding recent weight lost, and be psychotic. 06/26/2025: Continue to encourage medication adherence and engagement. 06/27: accepting medications and requested prazosin 2mg be restarted 06/28 Patient is a limited historian due to disorganized speech and behavior. Throughout interview patient looking off in the distance, sometimes very latent responses, appearing to be internally preoccupied; frequently not finishing sentences, giving cryptic, vague and frequently unrelated responses to discussion questions. Packing Line Worker introduces himself has a doctor... Patient then asks are you a Dr.? I am not a doctor. I am Daphne... On inquiry about why patient came to the hospital, she replies, with speech latency and in broken sentences I came... I wanted medications reviewed... And wanted a toxicology... The unknown.... Things got a little unhinged... The court room... Domestic stuff. Patient goes on I was looking for my medications at my house... Interviews, talking, trying to survive all the time... The reality of things is unclear to me... Of the events. Packing Line Worker asks for clarification to which patient says, again after significant latency, the court house... I just want my Purling back... (she later clarifies that the Garrett is a multi tool knife). Patient then started to refer to another patient, saying he wants a tape measure... I have one... I can hang out... There is time and things will be revealed... Whenever thing comes together... Family and judges and worldly stuff.. Packing Line Worker asks about her earlier concern that her is poisoning her... Patient remained silent for awhile and then says I checked my meds... When I went to talk to them... I would like to see the toxicology... My back was sweating.. I was questioning reality generally... There was a 911 call... She then told movie writer she questioned the reality of this conversation but could not clarify further but then some something about getting her red ticket.. Regarding how she got to the hospital, patient said officers came to my house and talked to my kids...my daughter called them...since i was not feeling safe.....i know my very well...it just wasnt a good think going on...i wasn't...no...it got real.....im in survival mode...it started getting scary and dangerous...my was getting a little...red flaggs...it started to be an unsafe situation..he [] was not himself... Patient also said that her best friend Stephanie Holder dropped her off at the hospital; not clear how she got here. Patient gave movie writer permission to talk to Stephanie and also to collect information from her . denies drugs or taking her prescribed medications in excess denies hx manic episodes; yes AH but nothing to be alarmed about... Nurse Note by Karon Arora RN 06/25/25 09:54 - This RN spoke to [facility] regarding the situation that led to being present here in the ER. Per [facility] employee, yesterday there was an argument between the patient and her where both her and her received a crisis consult. Per [facility] employee, patient was originally seen by [facility] mobile crisis and it was determined she could go to respite, however, shortly after, crisis was called back to the home and the patient was sent here to the hospital. When the [facility] employee interviewed the pts 14 year old son, he reports that his mom has been acting really paranoid about things as of recently. (daughter 14yo, Son 11yo) 06/29 Patient remains with psychotic symptoms and said she thinks maybe he[] wants to kill or hurt me... Packing Line Worker inquired and patient kept coming back to the fact that he put her home medications in the wrong pill box compartments... and this is what made her think he is trying to kill her... Patient however was willing to entertain that perhaps this might not be true. However, she is significantly more organized today than she was yesterday, talking in full sentences sticking to the topic at hand. She agrees that yesterday she was feeling much more confused she is thinking more clearly today. Patient's father present who has been meeting with her daily since this admission and who agrees that she is significantly better and headed back towards her regular self. Patient agreed to sign a CV and also agreed to have Vyvanse and bupropion discontinued for now; she also agreed to take risperidone which movie writer explained was hopefully just for few days. IMPRESSION: Patient demonstrating psychotic symptoms, auditory hallucinations, paranoid delusions and disorganized speech and behavior; patient is certainly internally preoccupied. So far collateral reports that patient has no history of psychosis or bipolar disorder. After gathering collateral from patient's and father, both deny any history of psychosis or sukhdeep were similar such episodes. Both speculate patient may have abused prescription medications including Vyvanse (and reports may have used crack cocaine) accounting for triggering this episode. Frequently substance induced psychosis resolves within 1-2 days (though can also persist for 2 or more weeks); however patient has remained on both Vyvanse and Wellbutrin which could prolonged symptoms (as both can increase dopamine). Will hold both Vyvanse and Wellbutrin. Also started risperidone low-dose to help with dopamine blockade. 06/30 Patient remains with paranoid ideation; refused Risperdal. On inquiry patient said she does not think she needs it but movie writer continue to educate patient on medication and she said she would start taking it. Patient with some increase disorganized behaviors today, seen self-dialoguing and responding to internal stimuli at 1 point standing aimlessly in hallway, not moving. Slept only 4 hours -hopefully patient will start taking risperidone 07/01 patient remains with intermittent odd and disorganized behaviors, talking to herself in the wetzel; remains with paranoid ideations however is able to be more logical in conversation and for longer periods of time. Patient's sister visiting who gave history that patient started to a peer to be manic about 5 months ago which correlates to increased Vyvanse dose (hyperactive, rapid speech, little sleep-which patient concurred); patient's sister volunteered that she has schizoaffective disorder and has been on medication which was a surprise to patient but with this news was willing to take Risperdal 07/02 patient doing much better. Patient is more organized in both speech and behavior. Patient did take Risperdal twice yesterday but found it made her tired and did not want it anymore. However she agrees it may have been helpful. Patient for the 1st time able to talk much more logically and accurately about history and shares with movie writer that she has been diagnosed with bipolar disorder in the past and was at 1 point on Seroquel around 400 mg and then stabilized on Lamictal 200 mg. Patient said that she had been doing well for so long that her current psychiatric provider agreed to start peeling away her medications and Seroquel was lowered to 100 mg Lamictal tapered down to 50 mg. This taper coincided with patient being started on stimulant medication for ADHD and her Vyvanse was titrated. Patient agrees that it is very possible that the tapering off of Lamictal (she may have been on only Lamictal and not Seroquel for quite awhile) the titration of a stimulant medication is what triggered manic episode which worsened over the past few weeks and included significant paranoid ideations. Patient agrees to get back on Lamictal which caused no side effects. -remains with paranoid ideations about her but they are less intense and patient more open to reality testing; of note patient's does have schizophrenia 07/05 patient continues to be improved, overall organized in speech and behavior able to discuss diagnosis and treatment appropriately 07/06Patient more disorganized doing bizarre, odd hand movements during interview. Patient mimicking/mirroring the hand gestures of whomever is talking; some echolalia as well. Patient remains very vague when discussing her thoughts. Continues to have some paranoid ideations about her however patient's sister does agree that patient's is excessively controlling and for the past 2 years, the sister has noticed that he dictates how long and with whom patient can spend time. Patient struggles to have insight into her behaviors including when they are pointed out in real-time. However she does agree to start perphenazine\ -had discussed risks/side effects of antipsychotics 07/07 Patient denies any medications side effects. Continues to have disorganized in behaviors and now hiding in the corners of the hallway throughout the milieu; continues to mirror movements of others with intermittent echolalia. Remains very vague on what he is thinking and keeps saying she is just waiting for it to all come together. 07/08 Patient Increasingly disorganized; standing in the corner for hours, peering around it into the milieu, not talking. Patient guarded on approach. Initially refused perphenazine but was willing to discuss it with movie writer and patient said she does not feel like herself and hoped that the medication would help repair that. Patient agreed to increasing perphenazine to 4 mg t.i.d. -regarding diagnosis, patient has past diagnosis of bipolar disorder which reportedly was treated with Lamictal and before that Seroquel. Patient is not particularly manic but is definitely with psychotic symptoms. Will provisionally change diagnosis to schizoaffective disorder 07/09 little better today with increased dose of perphenazine which patient has been taking. She denies medication side effects and agrees that medications are helpful Still odd but less so and seems to be more organized. Still with limited insight but reports she is feeling better and more like herself though can not specifically articulate why. Patient said she had a good talk with her daughter which was helpful; also talked with the telling him she wants to separate which she said was a long time coming -seems that perphenazine is helping; will continue 07/10 Patient agitated on the unit today and yelling in the hallway. Packing Line Worker discussed this with patient who expresses concern about her being with her children. pt says she gave him bad news about their marriage and is worried about his mental state. She says he has had hallucinated/paranoid delusions about their son, a few years ago. Today, she can not say what he did or said that worried her...other than vague references to his composure...reactions...like he's not in touch with reality... But with no specifics...She agrees perhaps he could just be anxious... She also says she believes he has been unmedicated for a long time She then told her movie writer that Juan Miguel [son] talks in code to me, like I asked 'what are you wearing to school today...' and he said 'my pink Allan shirt tomorrow...' but he does not have a pink allan shirt, which means he's talking to me in code... She said this exchange happened the week prior to this admission and that he is talking in code her so his father will not know. Patient then showed movie writer a picture her son made which her brought in for her during this visit; she insisted him doing so was manipulative though movie writer could not understand why; patient showed movie writer a letter her wrote to her which was generally about how he is hoping for her and he wished to get help her. Patient says she thinks it is weird though movie writer could not understand why. After this encounter with her , she l called PD for wellness check on son; check was completed and PD informed her that her son is OK. She signed a 3 day notice 07/11 Patient refuse perphenazine, last night and this morning. Patient barely slept and staff reports she was pacing the wetzel throughout the night. On inquiry patient said that the afternoon dose was making her feel tired; regarding the bedtime dose, she said she just does not want to take this medication and wants to try something different in the same category. Packing Line Worker offered haloperidol with which she agreed. Impression: Patient remains with paranoid ideations and no insight into her own illness. She has some hypomanic behaviors; most of her problematic symptoms have been psychosis so have been focusing on antipsychotic however patient may benefit from traditional mood stabilizer; will continue to titrate Lamictal however this may not be adequate. Will hold Lexapro. -if patient willing will also consider increasing Seroquel at bedtime though concern is it would cause daytime sedation and she would refuse it. 07/12 little more organized, angry at her ; does not want Haldol, saying it makes her too sedated and agreed to Clozaril after reviewing risks/side effects -patient says she will retract her 3 day and stay a little longer 07/13 more odd behaviors today, wandering, sometimes hiding in hallway; other times social with peers. Pt witnessed self-dialouging in bedroom. Agrees to titration of clozapine. Agrees to remain on the unit longer for treatment -when patient takes perphenazine or Haldol, odd behaviors seemed to clear up; currently those have been discontinued and she is on low-dose of clozapine which is being titrated 07/14: Patient reports moderate anxiety. Denies depression. Denies paranoia. Denies SI/HI/AVH. Continue current treatment regimen. Plan Three day q15 Increase to clozapine 50 mg q.h.s.; will titrate by 25 mg a day as clinically indicated DC Haldol Increased Lamictal to 125 mg: Used to be on 200 and has been on 50 mg for months HOLD Wellbutrin 300 mg daily: will monitor for psychosis. HOLD Lexapro 10 mg daily since hypomanic behaviors HOLD Vyvanse DC perphenazine; patient did not want it, saying it made her sedated DC risperidone; patient does not like and patient is improved P.R.N. Zyprexa 5mg q.4 hours p.r.n. for agitation/psychosis Seroquel 100 at bedtime for sleep. BuSpar 15 mg twice a day. Patient educated on: therapeutic strategies Reason for continued inpatient stay Substantial Risk for: rapid decompensation Time Spent With Patient Time: Total time managing care of this patient today ____ minutes.
[2025-07-15 02:03] VITALS: BP 119/75
[2025-07-15 08:00] VITALS: BP 123/61; PULSE 122; RESP 18; TEMP 36.9; O2SAT 99
[2025-07-15 19:56] VITALS: BP 161/80; PULSE 107; TEMP 36.7; O2SAT 97
--- NOTE | 2025-07-15 22:13 | HO.PSYCHPN ---
Subjective Subjective Date of Service: 07/15/25 Reason For Visit: Recurrent major depression with psychosis Healthcare Proxy: No Guardianship: No Medical Problems Affecting Mental Status: No Interim History: Medical record and nursing notes reviewed; case discussed during rounds with team/nursing staff, and met with patient for supportive therapy/psychoeducation, as well as medication management. Patient is not active engage in 1-1 assessment, walking the wetzel, asking this provider credential she is not legal . can you open the door? . Report to nurse that she find it helpful to distract her self by using headphone. Told nurse that she tries to have a good day. Appear sad, irritable, preoccupied and appear to be psychotic with mood swing, restless. Per nursing, patient slept for 5 hours, compliant with meds. Conitnue with current plan. Medication Compliance: Yes Side effects from medications: No Review of Systems Acute medical concerns: No Medical Review of Systems: unchanged Review of Systems Review of Systems No SOB/ No N/V. Mental Status Exam Mental Status Exam Narrative: Appearance: Casually dressed, adequate hygiene and grooming Behavior: anxious, irritable, not engage. Eye contact is fair, and there are no signs of psychomotor agitation or retardation Speech: Normal volume and prosody Thought process: racing thoughts, Thought content: On treatment Mood: anxious, irritable Affect: Mood-congruent SI: Not express HI: Not express VH/AH: Apear to be pyschitic. Delusions: None Insight/judgment: Poor insight and judgment Memory/cog: Alert, oriented x 4. grossly intact to conversational testing Diagnostics Vital Signs (24Hr): Vital Signs - 24 hr 07/15/25 02:03 07/15/25 08:00 07/15/25 19:56 Temperature 98.4 F 98.0 F Pulse Rate 122 H 107 H Respiratory Rate 18 Blood Pressure 119/75 123/61 161/80 H Pulse Oximetry 99 97 Oxygen Delivery Method Room Air Room Air BMI result Body Mass Index 20.8 Labs 06/30/25 07:49 06/30/25 07:49 Medications Medications Current Medications Acetaminophen (Acetaminophen 325 Mg Tablet) 650 mg PO Q6H PRN PRN Reason: Headache/Pain, Scale 1-10 Last Admin: 07/06/25 14:36 Dose: 650 mg Al Hydroxide/Mg Hydroxide (Magnesium Hydrox/Alum Hydrox 30 Ml Oral.Susp) 30 ml PO Q6H PRN PRN Reason: Heartburn/Nausea Buspirone HCl (Buspirone Hcl 5 Mg Tablet) 15 mg PO BID [facility] Last Admin: 07/15/25 08:52 Dose: 15 mg Clozapine (Clozapine 25 Mg Tablet) 75 mg PO BEDTIME RATNA Last Admin: 07/15/25 02:02 Dose: 75 mg Cyclobenzaprine HCl (Cyclobenzaprine Hcl 10 Mg Tablet) 10 mg PO TID PRN PRN Reason: Muscle Spasm Hydroxyzine HCl (Hydroxyzine Hcl 25 Mg Tablet) 25 mg PO Q6H PRN PRN Reason: mild anxiety Last Admin: 06/29/25 17:08 Dose: 25 mg Ibuprofen (Ibuprofen 600 Mg Tablet) 600 mg PO Q6H PRN PRN Reason: Pain, Severe (Pain Scale 7-10) Last Admin: 07/15/25 19:18 Dose: 600 mg Lamotrigine (Lamotrigine 25 Mg Tablet) 125 mg PO BEDTIME [facility] Last Admin: 07/15/25 02:02 Dose: 125 mg Levothyroxine Sodium (Levothyroxine Sodium 75 Mcg Tablet) 75 mcg PO DAILY@0600 [facility] Last Admin: 07/15/25 06:26 Dose: 75 mcg Lidocaine HCl (Lidocaine 4 % Cream Kit) 1 appl TOPICAL ONCE PRN; Protocol PRN Reason: lower back pain Last Admin: 07/10/25 16:45 Dose: 1 appl Lorazepam (Lorazepam 0.5 Mg Tablet) 0.5 mg PO DAILY PRN PRN Reason: severe anxiety Last Admin: 07/04/25 10:04 Dose: 0.5 mg Magnesium Hydroxide (Milk Of Magnesia 30 Ml Oral.Susp) 30 ml PO DAILY PRN PRN Reason: Constipation Multivitamins/Vitamin C (Multivitamin Tablet) 1 tab PO DAILY [facility] Last Admin: 07/15/25 08:52 Dose: 1 tab Nicotine Polacrilex (Nicotine Polacrilex 2 Mg Gum) 4 mg BUCCAL Q2H PRN PRN Reason: Nicotine Cravings Prazosin HCl (Prazosin Hcl 1 Mg Capsule) 2 mg PO BEDTIME RATNA; Protocol Last Admin: 07/15/25 02:03 Dose: 2 mg Quetiapine Fumarate (Quetiapine Fumarate 100 Mg Tablet) 100 mg PO BEDTIME [facility] Last Admin: 07/15/25 02:04 Dose: 100 mg Risperidone (Risperidone 1 Mg Tablet) 1 mg PO DAILY PRN PRN Reason: disorganized behavior Trazodone HCl (Trazodone Hcl 50 Mg Tablet) 50 mg PO BEDTIME MRX1 PRN PRN Reason: Insomnia Allergies Allergies Allergy/AdvReac Type Severity Reaction Status Date / Time No Known Allergies Allergy Verified 06/24/25 17:49 Assessment & Plan Assessment & Plan (1) Schizoaffective disorder, bipolar type: Status: Acute Code(s): F25.0 - Schizoaffective disorder, bipolar type (2) Depression: Status: Acute Code(s): F32.A - Depression, unspecified Plan HPI: Pt is a 40 year old female who presented to the ED after being dropped off by a friend . Upon arrival to the ED she appeared increasingly paranoid and indicated that she was fearful she was being drugged by her and voiced concern for her and her children's safety. Pt stated that she wanted to have her medications checked as things are just off, my daily routine is off . Pt provided inconsistent information as evidence by conflicting information from what she disclosed to the ED provider upon arrival and at times appears to be a poor historian as a result of her current presentation. She remained guarded at this time and at times appeared to be minimizing symptoms as well as medication seeking as she remained primarily focused on her controlled substances that she is currently prescribed. It is to be noted. Formulation/clinical reasoning: Increasing psychotic behaviors, paranoid, disorganized thought process. Family members have safety concern regarding patient mental status at this current time. Even the above information, patient will be benefit in restrictive environment, medication management, and refer patient back to outpatient psychiatric services. Hospital course: 06/25/25: Continue with home medications. In my impression, patient may think that she just come here to get refill of her medication and will be sent home. However, other time she also stating that she has not come here for medication change as if she needs a refilled she can get it feel from her OP provider. Ativan 1 mg q.4 hours p.r.n. for severe anxiety. Home dose was only 0.5 b.i.d. p.r.n.. Stimulants: Continue with stimulants, we will monitor if it causing more psychotic behavior. Questioned if patient overused her Adderall information regarding recent weight lost, and be psychotic. 06/26/2025: Continue to encourage medication adherence and engagement. 06/27: accepting medications and requested prazosin 2mg be restarted 06/28 Patient is a limited historian due to disorganized speech and behavior. Throughout interview patient looking off in the distance, sometimes very latent responses, appearing to be internally preoccupied; frequently not finishing sentences, giving cryptic, vague and frequently unrelated responses to discussion questions. Commanding Officer Garage introduces himself has a doctor... Patient then asks are you a Dr.? I am not a doctor. I am Daphne... On inquiry about why patient came to the hospital, she replies, with speech latency and in broken sentences I came... I wanted medications reviewed... And wanted a toxicology... The unknown.... Things got a little unhinged... The court room... Domestic stuff. Patient goes on I was looking for my medications at my house... Interviews, talking, trying to survive all the time... The reality of things is unclear to me... Of the events. Commanding [employer] asks for clarification to which patient says, again after significant latency, the court house... I just want my Garrett back... (she later clarifies that the Garrett is a multi tool knife). Patient then started to refer to another patient, saying he wants a tape measure... I have one... I can hang out... There is time and things will be revealed... Whenever thing comes together... Family and judges and worldly stuff.. Commanding Officer Garage asks about her earlier concern that her is poisoning her... Patient remained silent for awhile and then says I checked my meds... When I went to talk to them... I would like to see the toxicology... My back was sweating.. I was questioning reality generally... There was a 911 call... She then told assembly instructions writer she questioned the reality of this conversation but could not clarify further but then some something about getting her red ticket.. Regarding how she got to the hospital, patient said officers came to my house and talked to my kids...my daughter called them...since i was not feeling safe.....i know my very well...it just wasnt a good think going on...i wasn't...no...it got real.....im in survival mode...it started getting scary and dangerous...my was getting a little...red flaggs...it started to be an unsafe situation..he [] was not himself... Patient also said that her best friend Stephanie Holder dropped her off at the hospital; not clear how she got here. Patient gave assembly instructions writer permission to talk to Stephanie and also to collect information from her . denies drugs or taking her prescribed medications in excess denies hx manic episodes; yes AH but nothing to be alarmed about... Nurse Note by Karon Arora RN 06/25/25 09:54 - This RN spoke to [facility] regarding the situation that led to being present here in the ER. Per [facility] employee, yesterday there was an argument between the patient and her where both her and her received a crisis consult. Per [facility] employee, patient was originally seen by [facility] crisis and it was determined she could go to respite, however, shortly after, crisis was called back to the home and the patient was sent here to the hospital. When the [facility] employee interviewed the pts 14 year old son, he reports that his mom has been acting really paranoid about things as of recently. (daughter 14yo, Son 11yo) 06/29 Patient remains with psychotic symptoms and said she thinks maybe he[] wants to kill or hurt me... Commanding Officer Garage inquired and patient kept coming back to the fact that he put her home medications in the wrong pill box compartments... and this is what made her think he is trying to kill her... Patient however was willing to entertain that perhaps this might not be true. However, she is significantly more organized today than she was yesterday, talking in full sentences sticking to the topic at hand. She agrees that yesterday she was feeling much more confused she is thinking more clearly today. Patient's father present who has been meeting with her daily since this admission and who agrees that she is significantly better and headed back towards her regular self. Patient agreed to sign a CV and also agreed to have Vyvanse and bupropion discontinued for now; she also agreed to take risperidone which assembly instructions writer explained was hopefully just for few days. IMPRESSION: Patient demonstrating psychotic symptoms, auditory hallucinations, paranoid delusions and disorganized speech and behavior; patient is certainly internally preoccupied. So far collateral reports that patient has no history of psychosis or bipolar disorder. After gathering collateral from patient's and father, both deny any history of psychosis or sukhdeep were similar such episodes. Both speculate patient may have abused prescription medications including Vyvanse (and reports may have used crack cocaine) accounting for triggering this episode. Frequently substance induced psychosis resolves within 1-2 days (though can also persist for 2 or more weeks); however patient has remained on both Vyvanse and Wellbutrin which could prolonged symptoms (as both can increase dopamine). Will hold both Vyvanse and Wellbutrin. Also started risperidone low-dose to help with dopamine blockade. 06/30 Patient remains with paranoid ideation; refused Risperdal. On inquiry patient said she does not think she needs it but assembly instructions writer continue to educate patient on medication and she said she would start taking it. Patient with some increase disorganized behaviors today, seen self-dialoguing and responding to internal stimuli at 1 point standing aimlessly in hallway, not moving. Slept only 4 hours -hopefully patient will start taking risperidone 07/01 patient remains with intermittent odd and disorganized behaviors, talking to herself in the wetzel; remains with paranoid ideations however is able to be more logical in conversation and for longer periods of time. Patient's sister visiting who gave history that patient started to a peer to be manic about 5 months ago which correlates to increased Vyvanse dose (hyperactive, rapid speech, little sleep-which patient concurred); patient's sister volunteered that she has schizoaffective disorder and has been on medication which was a surprise to patient but with this news was willing to take Risperdal 07/02 patient doing much better. Patient is more organized in both speech and behavior. Patient did take Risperdal twice yesterday but found it made her tired and did not want it anymore. However she agrees it may have been helpful. Patient for the 1st time able to talk much more logically and accurately about history and shares with assembly instructions writer that she has been diagnosed with bipolar disorder in the past and was at 1 point on Seroquel around 400 mg and then stabilized on Lamictal 200 mg. Patient said that she had been doing well for so long that her current psychiatric provider agreed to start peeling away her medications and Seroquel was lowered to 100 mg Lamictal tapered down to 50 mg. This taper coincided with patient being started on stimulant medication for ADHD and her Vyvanse was titrated. Patient agrees that it is very possible that the tapering off of Lamictal (she may have been on only Lamictal and not Seroquel for quite awhile) the titration of a stimulant medication is what triggered manic episode which worsened over the past few weeks and included significant paranoid ideations. Patient agrees to get back on Lamictal which caused no side effects. -remains with paranoid ideations about her but they are less intense and patient more open to reality testing; of note patient's does have schizophrenia 07/05 patient continues to be improved, overall organized in speech and behavior able to discuss diagnosis and treatment appropriately 07/06Patient more disorganized doing bizarre, odd hand movements during interview. Patient mimicking/mirroring the hand gestures of whomever is talking; some echolalia as well. Patient remains very vague when discussing her thoughts. Continues to have some paranoid ideations about her however patient's sister does agree that patient's is excessively controlling and for the past 2 years, the sister has noticed that he dictates how long and with whom patient can spend time. Patient struggles to have insight into her behaviors including when they are pointed out in real-time. However she does agree to start perphenazine\ -had discussed risks/side effects of antipsychotics 07/07 Patient denies any medications side effects. Continues to have disorganized in behaviors and now hiding in the corners of the hallway throughout the milieu; continues to mirror movements of others with intermittent echolalia. Remains very vague on what he is thinking and keeps saying she is just waiting for it to all come together. 07/08 Patient Increasingly disorganized; standing in the corner for hours, peering around it into the milieu, not talking. Patient guarded on approach. Initially refused perphenazine but was willing to discuss it with assembly instructions writer and patient said she does not feel like herself and hoped that the medication would help repair that. Patient agreed to increasing perphenazine to 4 mg t.i.d. -regarding diagnosis, patient has past diagnosis of bipolar disorder which reportedly was treated with Lamictal and before that Seroquel. Patient is not particularly manic but is definitely with psychotic symptoms. Will provisionally change diagnosis to schizoaffective disorder 07/09 little better today with increased dose of perphenazine which patient has been taking. She denies medication side effects and agrees that medications are helpful Still odd but less so and seems to be more organized. Still with limited insight but reports she is feeling better and more like herself though can not specifically articulate why. Patient said she had a good talk with her daughter which was helpful; also talked with the telling him she wants to separate which she said was a long time coming -seems that perphenazine is helping; will continue 07/10 Patient agitated on the unit today and yelling in the hallway. Commanding Officer Garage discussed this with patient who expresses concern about her being with her children. pt says she gave him bad news about their marriage and is worried about his mental state. She says he has had hallucinated/paranoid delusions about their son, a few years ago. Today, she can not say what he did or said that worried her...other than vague references to his composure...reactions...like he's not in touch with reality... But with no specifics...She agrees perhaps he could just be anxious... She also says she believes he has been unmedicated for a long time She then told her assembly instructions writer that Juan Miguel [son] talks in code to me, like I asked 'what are you wearing to school today...' and he said 'my pink Allan shirt tomorrow...' but he does not have a pink allan shirt, which means he's talking to me in code... She said this exchange happened the week prior to this admission and that he is talking in code her so his father will not know. Patient then showed assembly instructions writer a picture her son made which her brought in for her during this visit; she insisted him doing so was manipulative though assembly instructions writer could not understand why; patient showed assembly instructions writer a letter her wrote to her which was generally about how he is hoping for her and he wished to get help her. Patient says she thinks it is weird though assembly instructions writer could not understand why. After this encounter with her , she l called PD for wellness check on son; check was completed and PD informed her that her son is OK. She signed a 3 day notice 07/11 Patient refuse perphenazine, last night and this morning. Patient barely slept and staff reports she was pacing the wetzel throughout the night. On inquiry patient said that the afternoon dose was making her feel tired; regarding the bedtime dose, she said she just does not want to take this medication and wants to try something different in the same category. Commanding Officer Garage offered haloperidol with which she agreed. Impression: Patient remains with paranoid ideations and no insight into her own illness. She has some hypomanic behaviors; most of her problematic symptoms have been psychosis so have been focusing on antipsychotic however patient may benefit from traditional mood stabilizer; will continue to titrate Lamictal however this may not be adequate. Will hold Lexapro. -if patient willing will also consider increasing Seroquel at bedtime though concern is it would cause daytime sedation and she would refuse it. 07/12 little more organized, angry at her ; does not want Haldol, saying it makes her too sedated and agreed to Clozaril after reviewing risks/side effects -patient says she will retract her 3 day and stay a little longer 07/13 more odd behaviors today, wandering, sometimes hiding in hallway; other times social with peers. Pt witnessed self-dialouging in bedroom. Agrees to titration of clozapine. Agrees to remain on the unit longer for treatment -when patient takes perphenazine or Haldol, odd behaviors seemed to clear up; currently those have been discontinued and she is on low-dose of clozapine which is being titrated 07/14: Patient reports moderate anxiety. Denies depression. Denies paranoia. Denies SI/HI/AVH. Continue current treatment regimen. 07/15/25: Patient is not active engage in 1-1 assessment, walking the wetzel, asking this provider credential she is not legal . can you open the door? . Report to nurse that she find it helpful to distract her self by using headphone. Told nurse that she tries to have a good day. Appear sad, irritable, preoccupied and appear to be psychotic with mood swing, restless. Per nursing, patient slept for 5 hours, compliant with meds. Continue with current plan. Plan q15 Increase to clozapine 50 mg q.h.s.; will titrate by 25 mg a day as clinically indicated DC Haldol Increased Lamictal to 125 mg: Used to be on 200 and has been on 50 mg for months HOLD Wellbutrin 300 mg daily: will monitor for psychosis. HOLD Lexapro 10 mg daily since hypomanic behaviors HOLD Vyvanse DC perphenazine; patient did not want it, saying it made her sedated DC risperidone; patient does not like and patient is improved P.R.N. Zyprexa 5mg q.4 hours p.r.n. for agitation/psychosis Seroquel 100 at bedtime for sleep. BuSpar 15 mg twice a day. Patient educated on: diagnosis, medication risk/benefits and therapeutic strategies Informed Consent: further education needed Reason for continued inpatient stay Substantial Risk for: med/psych decompensation Time Spent With Patient Time: Total time managing care of this patient today ____ minutes.
[2025-07-16] MEDS: Lidocaine 4 % Cream KIT 1 APPL TOPICAL (07:05)
[2025-07-16 07:59] VITALS: BP 118/76; PULSE 105; RESP 18; TEMP 36.6; O2SAT 99
--- NOTE | 2025-07-16 10:19 | P.PNPSI_ITS ---
Subjective Subjective Date of Service: 07/16/25 Reason For Visit: Recurrent major depression with psychosis Subjective Notes: Conditional Voluntary and 3 Day (07/20) Healthcare Proxy: No Guardianship: No Medical Problems Affecting Mental Status: No Interim History: I am upset every morning and am upset now, but I don't want to talk about it. Team reports pt is upset about needing to be on the unit this weekend. Family meeting on 07/19. Pt allowed brief meeting with tw- discussed Clozapine increase by primary provider in preparation for discharge, she agrees and concurs. Team reports pt slept for ~6.5 hours. Described as anxious, guarded and labile Episodic yelling on the unit, after a telephone call with partner. Sat on the floor in the middle of the milieu, asking her primary RN to pick her up. Was able to get off the floor on her own and meet with account underwriter briefly, however, declined to discuss what was bothering her. Denies SI,HI,AH,VH- I am just pissed, you know? No new medical/diagnostic results. Back pain relieved with Ibuprofen Clozapine to increase to 100 mg tonight per primary provider. Medication Compliance: Yes Side effects from medications: No Attending Groups: No Review of Systems Acute medical concerns: No Medical Review of Systems: unchanged Review of Systems Review of Systems No Mental Status Exam Mental Status Exam Patient Appearance: Appropriate Patient Orientation: Person, Place, Time and Situation Level of Consciousness: Restless and Alert Patient Behavior: Talkative, Suspicious, Restless, Anxious, Resistive to Care, Distractible, Crying and Poor Eye Contact Mood Description: Hostile, Labile and Angry Affect Description: Hostile, Labile and Angry Patient Cognition Impaired: No Ability to Follow Directions: Good Speech Pattern: Spontaneous Speech, Loud and Pressured Memory Description: Episodic Impaired Hallucinations: None Delusions: Paranoid Ideation and Present Perceptual Disturbances: Depersonalization and Derealization Thought Process: Rumination and Evasive Thought Content: positive for Circumstantial, positive for Perseveration, positive for Preoccupation and positive for Suicidal Ideation (denies) Depressive Symptoms: Increased Anxiety, Increased Irritability, Crying Spells, Hopelessness and Unhappiness Abnormal Motor Activity Signs and Symptoms: Agitation Judgement: Fair Diagnostics Vital Signs (24Hr): Vital Signs - 24 hr 07/15/25 19:56 07/16/25 07:59 Temperature 98.0 F 97.8 F Pulse Rate 107 H 105 H Respiratory Rate 18 Blood Pressure 161/80 H 118/76 Pulse Oximetry 97 99 Oxygen Delivery Method Room Air Room Air BMI result Body Mass Index 20.8 Labs 06/30/25 07:49 06/30/25 07:49 Medications Medications Current Medications Acetaminophen (Acetaminophen 325 Mg Tablet) 650 mg PO Q6H PRN PRN Reason: Headache/Pain, Scale 1-10 Last Admin: 07/06/25 14:36 Dose: 650 mg Al Hydroxide/Mg Hydroxide (Magnesium Hydrox/Alum Hydrox 30 Ml Oral.Susp) 30 ml PO Q6H PRN PRN Reason: Heartburn/Nausea Buspirone HCl (Buspirone Hcl 5 Mg Tablet) 15 mg PO BID [facility] Last Admin: 07/15/25 22:56 Dose: 15 mg Clozapine (Clozapine 25 Mg Tablet) 75 mg PO BEDTIME [facility] Last Admin: 07/15/25 22:53 Dose: 75 mg Cyclobenzaprine HCl (Cyclobenzaprine Hcl 10 Mg Tablet) 10 mg PO TID PRN PRN Reason: Muscle Spasm Hydroxyzine HCl (Hydroxyzine Hcl 25 Mg Tablet) 25 mg PO Q6H PRN PRN Reason: mild anxiety Last Admin: 06/29/25 17:08 Dose: 25 mg Ibuprofen (Ibuprofen 600 Mg Tablet) 600 mg PO Q6H PRN PRN Reason: Pain, Severe (Pain Scale 7-10) Last Admin: 07/16/25 07:10 Dose: 600 mg Lamotrigine (Lamotrigine 25 Mg Tablet) 125 mg PO BEDTIME [facility] Last Admin: 07/15/25 22:58 Dose: 125 mg Levothyroxine Sodium (Levothyroxine Sodium 75 Mcg Tablet) 75 mcg PO DAILY@0600 [facility] Last Admin: 07/16/25 06:50 Dose: 75 mcg Lidocaine HCl (Lidocaine 4 % Cream Kit) 1 appl TOPICAL ONCE PRN; Protocol PRN Reason: lower back pain Last Admin: 07/16/25 07:05 Dose: 1 appl Lorazepam (Lorazepam 0.5 Mg Tablet) 0.5 mg PO DAILY PRN PRN Reason: severe anxiety Last Admin: 07/16/25 07:01 Dose: 0.5 mg Magnesium Hydroxide (Milk Of Magnesia 30 Ml Oral.Susp) 30 ml PO DAILY PRN PRN Reason: Constipation Multivitamins/Vitamin C (Multivitamin Tablet) 1 tab PO DAILY RATNA Last Admin: 07/15/25 08:52 Dose: 1 tab Nicotine Polacrilex (Nicotine Polacrilex 2 Mg Gum) 4 mg BUCCAL Q2H PRN PRN Reason: Nicotine Cravings Prazosin HCl (Prazosin Hcl 1 Mg Capsule) 2 mg PO BEDTIME RATNA; Protocol Last Admin: 07/15/25 22:55 Dose: 2 mg Quetiapine Fumarate (Quetiapine Fumarate 100 Mg Tablet) 100 mg PO BEDTIME RATNA Last Admin: 07/15/25 22:59 Dose: 100 mg Risperidone (Risperidone 1 Mg Tablet) 1 mg PO DAILY PRN PRN Reason: disorganized behavior Trazodone HCl (Trazodone Hcl 50 Mg Tablet) 50 mg PO BEDTIME MRX1 PRN PRN Reason: Insomnia Allergies Allergies Allergy/AdvReac Type Severity Reaction Status Date / Time No Known Allergies Allergy Verified 06/24/25 17:49 Assessment & Plan Assessment & Plan (1) Schizoaffective disorder, bipolar type: Status: Acute Code(s): F25.0 - Schizoaffective disorder, bipolar type (2) Depression: Status: Acute Code(s): F32.A - Depression, unspecified Plan HPI: Pt is a 40 year old female who presented to the ED after being dropped off by a friend . Upon arrival to the ED she appeared increasingly paranoid and indicated that she was fearful she was being drugged by her and voiced concern for her and her children's safety. Pt stated that she wanted to have her medications checked as things are just off, my daily routine is off . Pt provided inconsistent information as evidence by conflicting information from what she disclosed to the ED provider upon arrival and at times appears to be a poor historian as a result of her current presentation. She remained guarded at this time and at times appeared to be minimizing symptoms as well as medication seeking as she remained primarily focused on her controlled substances that she is currently prescribed. It is to be noted. Formulation/clinical reasoning: Increasing psychotic behaviors, paranoid, disorganized thought process. Family members have safety concern regarding patient mental status at this current time. Even the above information, patient will be benefit in restrictive environment, medication management, and refer patient back to outpatient psychiatric services. Hospital course: 06/25/25: Continue with home medications. In my impression, patient may think that she just come here to get refill of her medication and will be sent home. However, other time she also stating that she has not come here for medication change as if she needs a refilled she can get it feel from her OP provider. Ativan 1 mg q.4 hours p.r.n. for severe anxiety. Home dose was only 0.5 b.i.d. p.r.n.. Stimulants: Continue with stimulants, we will monitor if it causing more psychotic behavior. Questioned if patient overused her Adderall information regarding recent weight lost, and be psychotic. 06/26/2025: Continue to encourage medication adherence and engagement. 06/27: accepting medications and requested prazosin 2mg be restarted 06/28 Patient is a limited historian due to disorganized speech and behavior. Throughout interview patient looking off in the distance, sometimes very latent responses, appearing to be internally preoccupied; frequently not finishing sentences, giving cryptic, vague and frequently unrelated responses to discussion questions. Blade Changer introduces himself has a doctor... Patient then asks are you a Dr.? I am not a doctor. I am Daphne... On inquiry about why patient came to the hospital, she replies, with speech latency and in broken sentences I came... I wanted medications reviewed... And wanted a toxicology... The unknown.... Things got a little unhinged... The court room... Domestic stuff. Patient goes on I was looking for my medications at my house... Interviews, talking, trying to survive all the time... The reality of things is unclear to me... Of the events. Blade Changer asks for clarification to which patient says, again after significant latency, the court house... I just want my Garrett back... (she later clarifies that the P[place] is a multi tool knife). Patient then started to refer to another patient, saying he wants a tape measure... I have one... I can hang out... There is time and things will be revealed... Whenever thing comes together... Family and judges and worldly stuff.. Blade Changer asks about her earlier concern that her is poisoning her... Patient remained silent for awhile and then says I checked my meds... When I went to talk to them... I would like to see the toxicology... My back was sweating.. I was questioning reality generally... There was a 911 call... She then told account underwriter she questioned the reality of this conversation but could not clarify further but then some something about getting her red ticket.. Regarding how she got to the hospital, patient said officers came to my house and talked to my kids...my daughter called them...since i was not feeling safe.....i know my very well...it just wasnt a good think going on...i wasn't...no...it got real.....im in survival mode...it started getting scary and dangerous...my was getting a little...red flaggs...it started to be an unsafe situation..he [] was not himself... Patient also said that her best friend Stephanie Holder dropped her off at the hospital; not clear how she got here. Patient gave account underwriter permission to talk to Stephanie and also to collect information from her . denies drugs or taking her prescribed medications in excess denies hx manic episodes; yes AH but nothing to be alarmed about... Nurse Note by Karon Arora RN 06/25/25 09:54 - This RN spoke to [facility] regarding the situation that led to being present here in the ER. Per [facility] employee, yesterday there was an argument between the patient and her where both her and her received a crisis consult. Per [facility] employee, patient was originally seen by [facility] crisis and it was determined she could go to respite, however, shortly after, crisis was called back to the home and the patient was sent here to the hospital. When the [facility] employee interviewed the pts 14 year old son, he reports that his mom has been acting really paranoid about things as of recently. (daughter 14yo, Son 11yo) 06/29 Patient remains with psychotic symptoms and said she thinks maybe he[] wants to kill or hurt me... Blade Changer inquired and patient kept coming back to the fact that he put her home medications in the wrong pill box compartments... and this is what made her think he is trying to kill her... Patient however was willing to entertain that perhaps this might not be true. However, she is significantly more organized today than she was yesterday, talking in full sentences sticking to the topic at hand. She agrees that yesterday she was feeling much more confused she is thinking more clearly today. Patient's father present who has been meeting with her daily since this admission and who agrees that she is significantly better and headed back towards her regular self. Patient agreed to sign a CV and also agreed to have Vyvanse and bupropion discontinued for now; she also agreed to take risperidone which account underwriter explained was hopefully just for few days. IMPRESSION: Patient demonstrating psychotic symptoms, auditory hallucinations, paranoid delusions and disorganized speech and behavior; patient is certainly internally preoccupied. So far collateral reports that patient has no history of psychosis or bipolar disorder. After gathering collateral from patient's and father, both deny any history of psychosis or sukhdeep were similar such episodes. Both speculate patient may have abused prescription medications including Vyvanse (and reports may have used crack cocaine) accounting for triggering this episode. Frequently substance induced psychosis resolves within 1-2 days (though can also persist for 2 or more weeks); however patient has remained on both Vyvanse and Wellbutrin which could prolonged symptoms (as both can increase dopamine). Will hold both Vyvanse and Wellbutrin. Also started risperidone low-dose to help with dopamine blockade. 06/30 Patient remains with paranoid ideation; refused Risperdal. On inquiry patient said she does not think she needs it but account underwriter continue to educate patient on medication and she said she would start taking it. Patient with some increase disorganized behaviors today, seen self-dialoguing and responding to internal stimuli at 1 point standing aimlessly in hallway, not moving. Slept only 4 hours -hopefully patient will start taking risperidone 07/01 patient remains with intermittent odd and disorganized behaviors, talking to herself in the wetzel; remains with paranoid ideations however is able to be more logical in conversation and for longer periods of time. Patient's sister visiting who gave history that patient started to a peer to be manic about 5 months ago which correlates to increased Vyvanse dose (hyperactive, rapid speech, little sleep-which patient concurred); patient's sister volunteered that she has schizoaffective disorder and has been on medication which was a surprise to patient but with this news was willing to take Risperdal 07/02 patient doing much better. Patient is more organized in both speech and behavior. Patient did take Risperdal twice yesterday but found it made her tired and did not want it anymore. However she agrees it may have been helpful. Patient for the 1st time able to talk much more logically and accurately about history and shares with account underwriter that she has been diagnosed with bipolar disorder in the past and was at 1 point on Seroquel around 400 mg and then stabilized on Lamictal 200 mg. Patient said that she had been doing well for so long that her current psychiatric provider agreed to start peeling away her medications and Seroquel was lowered to 100 mg Lamictal tapered down to 50 mg. This taper coincided with patient being started on stimulant medication for ADHD and her Vyvanse was titrated. Patient agrees that it is very possible that the tapering off of Lamictal (she may have been on only Lamictal and not Seroquel for quite awhile) the titration of a stimulant medication is what triggered manic episode which worsened over the past few weeks and included significant paranoid ideations. Patient agrees to get back on Lamictal which caused no side effects. -remains with paranoid ideations about her but they are less intense and patient more open to reality testing; of note patient's does have schizophrenia 07/05 patient continues to be improved, overall organized in speech and behavior able to discuss diagnosis and treatment appropriately 07/06Patient more disorganized doing bizarre, odd hand movements during interview. Patient mimicking/mirroring the hand gestures of whomever is talking; some echolalia as well. Patient remains very vague when discussing her thoughts. Continues to have some paranoid ideations about her however patient's sister does agree that patient's is excessively controlling and for the past 2 years, the sister has noticed that he dictates how long and with whom patient can spend time. Patient struggles to have insight into her behaviors including when they are pointed out in real-time. However she does agree to start perphenazine\ -had discussed risks/side effects of antipsychotics 07/07 Patient denies any medications side effects. Continues to have disorganized in behaviors and now hiding in the corners of the hallway throughout the milieu; continues to mirror movements of others with intermittent echolalia. Remains very vague on what he is thinking and keeps saying she is just waiting for it to all come together. 07/08 Patient Increasingly disorganized; standing in the corner for hours, peering around it into the milieu, not talking. Patient guarded on approach. Initially refused perphenazine but was willing to discuss it with account underwriter and patient said she does not feel like herself and hoped that the medication would help repair that. Patient agreed to increasing perphenazine to 4 mg t.i.d. -regarding diagnosis, patient has past diagnosis of bipolar disorder which reportedly was treated with Lamictal and before that Seroquel. Patient is not particularly manic but is definitely with psychotic symptoms. Will provisionally change diagnosis to schizoaffective disorder 07/09 little better today with increased dose of perphenazine which patient has been taking. She denies medication side effects and agrees that medications are helpful Still odd but less so and seems to be more organized. Still with limited insight but reports she is feeling better and more like herself though can not specifically articulate why. Patient said she had a good talk with her daughter which was helpful; also talked with the telling him she wants to separate which she said was a long time coming -seems that perphenazine is helping; will continue 07/10 Patient agitated on the unit today and yelling in the hallway. Blade Changer discussed this with patient who expresses concern about her being with her children. pt says she gave him bad news about their marriage and is worried about his mental state. She says he has had hallucinated/paranoid delusions about their son, a few years ago. Today, she can not say what he did or said that worried her...other than vague references to his composure...reactions...like he's not in touch with reality... But with no specifics...She agrees perhaps he could just be anxious... She also says she believes he has been unmedicated for a long time She then told her account underwriter that Juan Miguel [son] talks in code to me, like I asked 'what are you wearing to school today...' and he said 'my pink Allan shirt tomorrow...' but he does not have a pink allan shirt, which means he's talking to me in code... She said this exchange happened the week prior to this admission and that he is talking in code her so his father will not know. Patient then showed account underwriter a picture her son made which her brought in for her during this visit; she insisted him doing so was manipulative though account underwriter could not understand why; patient showed account underwriter a letter her wrote to her which was generally about how he is hoping for her and he wished to get help her. Patient says she thinks it is weird though account underwriter could not understand why. After this encounter with her , she l called PD for wellness check on son; check was completed and PD informed her that her son is OK. She signed a 3 day notice 07/11 Patient refuse perphenazine, last night and this morning. Patient barely slept and staff reports she was pacing the wetzel throughout the night. On inquiry patient said that the afternoon dose was making her feel tired; regarding the bedtime dose, she said she just does not want to take this medication and wants to try something different in the same category. Blade Changer offered haloperidol with which she agreed. Impression: Patient remains with paranoid ideations and no insight into her own illness. She has some hypomanic behaviors; most of her problematic symptoms have been psychosis so have been focusing on antipsychotic however patient may benefit from traditional mood stabilizer; will continue to titrate Lamictal however this may not be adequate. Will hold Lexapro. -if patient willing will also consider increasing Seroquel at bedtime though concern is it would cause daytime sedation and she would refuse it. 07/12 little more organized, angry at her ; does not want Haldol, saying it makes her too sedated and agreed to Clozaril after reviewing risks/side effects -patient says she will retract her 3 day and stay a little longer 07/13 more odd behaviors today, wandering, sometimes hiding in hallway; other times social with peers. Pt witnessed self-dialouging in bedroom. Agrees to titration of clozapine. Agrees to remain on the unit longer for treatment -when patient takes perphenazine or Haldol, odd behaviors seemed to clear up; currently those have been discontinued and she is on low-dose of clozapine which is being titrated 07/14: Patient reports moderate anxiety. Denies depression. Denies paranoia. Denies SI/HI/AVH. Continue current treatment regimen. 07/15/25: Patient is not active engage in 1-1 assessment, walking the wetzel, asking this provider credential she is not legal . can you open the door? . Report to nurse that she find it helpful to distract her self by using headphone. Told nurse that she tries to have a good day. Appear sad, irritable, preoccupied and appear to be psychotic with mood swing, restless. Per nursing, patient slept for 5 hours, compliant with meds. Continue with current plan. 07/16/25: I am upset every morning and am upset now, but I don't want to talk about it. Team reports pt is upset about needing to be on the unit this weekend. Family meeting on 07/19. Pt allowed brief meeting with tw- discussed Clozapine increase by primary provider in preparation for discharge, she agrees and concurs. Team reports pt slept for ~6.5 hours. Described as anxious, guarded and labile Episodic yelling on the unit, after a telephone call with partner. Sat on the floor in the middle of the milieu, asking her primary RN to pick her up. Was able to get off the floor on her own and meet with account underwriter briefly, however, declined to discuss what was bothering her. Denies SI,HI,AH,VH- I am just pissed, you know? No new medical/diagnostic results. Back pain relieved with Ibuprofen Plan: Clozapine to increase to 100 mg tonight per primary provider. Plan q15 Increase to clozapine 50 mg q.h.s.; will titrate by 25 mg a day as clinically indicated DC Haldol Increased Lamictal to 125 mg: Used to be on 200 and has been on 50 mg for months HOLD Wellbutrin 300 mg daily: will monitor for psychosis. HOLD Lexapro 10 mg daily since hypomanic behaviors HOLD Vyvanse DC perphenazine; patient did not want it, saying it made her sedated DC risperidone; patient does not like and patient is improved P.R.N. Zyprexa 5mg q.4 hours p.r.n. for agitation/psychosis Seroquel 100 at bedtime for sleep. BuSpar 15 mg twice a day. Reason for continued inpatient stay Substantial Risk for: rapid decompensation Time Spent With Patient Time: Total time managing care of this patient today ____ minutes.
[2025-07-16 20:13] VITALS: BP 137/85; PULSE 112; RESP 18; TEMP 36.8; O2SAT 100
[2025-07-17 07:45] VITALS: BP 99/66; PULSE 110; RESP 16; TEMP 36.8; O2SAT 100
--- NOTE | 2025-07-17 19:36 | P.PNPSI_ITS ---
Subjective Subjective Date of Service: 07/17/25 Reason For Visit: Recurrent major depression with psychosis Subjective Notes: Conditional Voluntary Healthcare Proxy: No Guardianship: No Medical Problems Affecting Mental Status: No Interim History: Medical record and nursing notes reviewed; case discussed during rounds with team/nursing staff, and met with patient for supportive therapy/psychoeducation, as well as medication management. Meet with patient in exam room. Report that anxiety is very high this morning. Says that she does not want to take PRN but she took it and report feeling better. Report trying to use coping skills such as listening to music, doing some art work and talk to staff and try not to explode . Patient is visible, less irritable and more cooperative, not question regarding this provider's capacity and title. Denies SI/SIB/HI/AVH. Can be labile. No medication changes. Continue with current treatment plan. Medication Compliance: Yes Side effects from medications: No Review of Systems Acute medical concerns: No Medical Review of Systems: unchanged Review of Systems Review of Systems No SOB/ No N/V. Mental Status Exam Mental Status Exam Narrative: Appearance: Casually dressed, adequate hygiene and grooming Behavior: anxious, less irritable, engaged . Eye contact is fair, and there are no signs of psychomotor agitation or retardation Speech: Normal volume and prosody Thought process: racing thoughts, Thought content: On treatment Mood: anxious, can be labile Affect: Mood-congruent SI: Denies HI: Denies VH/AH: Denies Delusions: None Insight/judgment: Poor insight and judgment Memory/cog: Alert, oriented x 4. grossly intact to conversational testing Diagnostics Vital Signs (24Hr): Vital Signs - 24 hr 07/16/25 20:13 07/17/25 07:45 Temperature 98.3 F 98.3 F Pulse Rate 112 H 110 H Respiratory Rate 18 16 Blood Pressure 137/85 99/66 Pulse Oximetry 100 100 Oxygen Delivery Method Room Air Room Air BMI result Body Mass Index 20.8 Labs 06/30/25 07:49 06/30/25 07:49 Medications Medications Current Medications Acetaminophen (Acetaminophen 325 Mg Tablet) 650 mg PO Q6H PRN PRN Reason: Headache/Pain, Scale 1-10 Last Admin: 07/06/25 14:36 Dose: 650 mg Al Hydroxide/Mg Hydroxide (Magnesium Hydrox/Alum Hydrox 30 Ml Oral.Susp) 30 ml PO Q6H PRN PRN Reason: Heartburn/Nausea Buspirone HCl (Buspirone Hcl 5 Mg Tablet) 15 mg PO BID COUNTS INCLUDE 234 BEDS AT THE [facility] Last Admin: 07/17/25 09:02 Dose: 15 mg Clozapine (Clozapine 100 Mg Tablet) 100 mg PO BEDTIME RATNA Last Admin: 07/16/25 22:04 Dose: 100 mg Cyclobenzaprine HCl (Cyclobenzaprine Hcl 10 Mg Tablet) 10 mg PO TID PRN PRN Reason: Muscle Spasm Hydroxyzine HCl (Hydroxyzine Hcl 25 Mg Tablet) 25 mg PO Q6H PRN PRN Reason: mild anxiety Last Admin: 07/17/25 11:13 Dose: 25 mg Ibuprofen (Ibuprofen 600 Mg Tablet) 600 mg PO Q6H PRN PRN Reason: Pain, Severe (Pain Scale 7-10) Last Admin: 07/17/25 00:13 Dose: 600 mg Lamotrigine (Lamotrigine 25 Mg Tablet) 125 mg PO BEDTIME COUNTS INCLUDE 234 BEDS AT THE [facility] Last Admin: 07/16/25 22:03 Dose: 125 mg Levothyroxine Sodium (Levothyroxine Sodium 75 Mcg Tablet) 75 mcg PO DAILY@0600 COUNTS INCLUDE 234 BEDS AT THE [facility] Last Admin: 07/17/25 07:04 Dose: 75 mcg Lidocaine HCl (Lidocaine 4 % Cream Kit) 1 appl TOPICAL ONCE PRN; Protocol PRN Reason: lower back pain Last Admin: 07/16/25 07:05 Dose: 1 appl Lorazepam (Lorazepam 0.5 Mg Tablet) 0.5 mg PO DAILY PRN PRN Reason: severe anxiety Last Admin: 07/17/25 07:07 Dose: 0.5 mg Magnesium Hydroxide (Milk Of Magnesia 30 Ml Oral.Susp) 30 ml PO DAILY PRN PRN Reason: Constipation Multivitamins/Vitamin C (Multivitamin Tablet) 1 tab PO DAILY COUNTS INCLUDE 234 BEDS AT THE [facility] Last Admin: 07/17/25 09:02 Dose: 1 tab Nicotine Polacrilex (Nicotine Polacrilex 2 Mg Gum) 4 mg BUCCAL Q2H PRN PRN Reason: Nicotine Cravings Prazosin HCl (Prazosin Hcl 1 Mg Capsule) 2 mg PO BEDTIME COUNTS INCLUDE 234 BEDS AT THE [facility]; Protocol Last Admin: 07/16/25 22:04 Dose: 2 mg Quetiapine Fumarate (Quetiapine Fumarate 100 Mg Tablet) 100 mg PO BEDTIME COUNTS INCLUDE 234 BEDS AT THE [facility] Last Admin: 07/16/25 22:04 Dose: 100 mg Risperidone (Risperidone 1 Mg Tablet) 1 mg PO DAILY PRN PRN Reason: disorganized behavior Trazodone HCl (Trazodone Hcl 50 Mg Tablet) 50 mg PO BEDTIME MRX1 PRN PRN Reason: Insomnia Allergies Allergies Allergy/AdvReac Type Severity Reaction Status Date / Time No Known Allergies Allergy Verified 06/24/25 17:49 Assessment & Plan Assessment & Plan (1) Schizoaffective disorder, bipolar type: Status: Acute Code(s): F25.0 - Schizoaffective disorder, bipolar type (2) Depression: Status: Acute Code(s): F32.A - Depression, unspecified Plan HPI: Pt is a 40 year old female who presented to the ED after being dropped off by a friend . Upon arrival to the ED she appeared increasingly paranoid and indicated that she was fearful she was being drugged by her and voiced concern for her and her children's safety. Pt stated that she wanted to have her medications checked as things are just off, my daily routine is off . Pt provided inconsistent information as evidence by conflicting information from what she disclosed to the ED provider upon arrival and at times appears to be a poor historian as a result of her current presentation. She remained guarded at this time and at times appeared to be minimizing symptoms as well as medication seeking as she remained primarily focused on her controlled substances that she is currently prescribed. It is to be noted. Formulation/clinical reasoning: Increasing psychotic behaviors, paranoid, disorganized thought process. Family members have safety concern regarding patient mental status at this current time. Even the above information, patient will be benefit in restrictive environment, medication management, and refer patient back to outpatient psychiatric services. Hospital course: 06/25/25: Continue with home medications. In my impression, patient may think that she just come here to get refill of her medication and will be sent home. However, other time she also stating that she has not come here for medication change as if she needs a refilled she can get it feel from her OP provider. Ativan 1 mg q.4 hours p.r.n. for severe anxiety. Home dose was only 0.5 b.i.d. p.r.n.. Stimulants: Continue with stimulants, we will monitor if it causing more psychotic behavior. Questioned if patient overused her Adderall information regarding recent weight lost, and be psychotic. 06/26/2025: Continue to encourage medication adherence and engagement. 06/27: accepting medications and requested prazosin 2mg be restarted 06/28 Patient is a limited historian due to disorganized speech and behavior. Throughout interview patient looking off in the distance, sometimes very latent responses, appearing to be internally preoccupied; frequently not finishing sentences, giving cryptic, vague and frequently unrelated responses to discussion questions. Mail Carrier introduces himself has a doctor... Patient then asks are you a Dr.? I am not a doctor. I am Daphne... On inquiry about why patient came to the hospital, she replies, with speech latency and in broken sentences I came... I wanted medications reviewed... And wanted a toxicology... The unknown.... Things got a little unhinged... The court room... Domestic stuff. Patient goes on I was looking for my medications at my house... Interviews, talking, trying to survive all the time... The reality of things is unclear to me... Of the events. Mail Carrier asks for clarification to which patient says, again after significant latency, the court house... I just want my [place] back... (she later clarifies that the [place] is a multi tool knife). Patient then started to refer to another patient, saying he wants a tape measure... I have one... I can hang out... There is time and things will be revealed... Whenever thing comes together... Family and judges and worldly stuff.. Mail Carrier asks about her earlier concern that her is poisoning her... Patient remained silent for awhile and then says I checked my meds... When I went to talk to them... I would like to see the toxicology... My back was sweating.. I was questioning reality generally... There was a 911 call... She then told lead technical writer she questioned the reality of this conversation but could not clarify further but then some something about getting her red ticket.. Regarding how she got to the hospital, patient said officers came to my house and talked to my kids...my daughter called them...since i was not feeling safe.....i know my very well...it just wasnt a good think going on...i wasn't...no...it got real.....im in survival mode...it started getting scary and dangerous...my was getting a little...red flaggs...it started to be an unsafe situation..he [] was not himself... Patient also said that her best friend Stephanie Holder dropped her off at the hospital; not clear how she got here. Patient gave lead technical writer permission to talk to Stephanie and also to collect information from her . denies drugs or taking her prescribed medications in excess denies hx manic episodes; yes AH but nothing to be alarmed about... Nurse Note by Karon Arora RN 06/25/25 09:54 - This RN spoke to [facility] regarding the situation that led to being present here in the ER. Per [facility] employee, yesterday there was an argument between the patient and her where both her and her received a crisis consult. Per [facility] employee, patient was originally seen by [facility] crisis and it was determined she could go to respite, however, shortly after, crisis was called back to the home and the patient was sent here to the hospital. When the [facility] employee interviewed the pts 14 year old son, he reports that his mom has been acting really paranoid about things as of recently. (daughter 14yo, Son 11yo) 06/29 Patient remains with psychotic symptoms and said she thinks maybe he[] wants to kill or hurt me... Mail Carrier inquired and patient kept coming back to the fact that he put her home medications in the wrong pill box compartments... and this is what made her think he is trying to kill her... Patient however was willing to entertain that perhaps this might not be true. However, she is significantly more organized today than she was yesterday, talking in full sentences sticking to the topic at hand. She agrees that yesterday she was feeling much more confused she is thinking more clearly today. Patient's father present who has been meeting with her daily since this admission and who agrees that she is significantly better and headed back towards her regular self. Patient agreed to sign a CV and also agreed to have Vyvanse and bupropion discontinued for now; she also agreed to take risperidone which lead technical writer explained was hopefully just for few days. IMPRESSION: Patient demonstrating psychotic symptoms, auditory hallucinations, paranoid delusions and disorganized speech and behavior; patient is certainly internally preoccupied. So far collateral reports that patient has no history of psychosis or bipolar disorder. After gathering collateral from patient's and father, both deny any history of psychosis or sukhdeep were similar such episodes. Both speculate patient may have abused prescription medications including Vyvanse (and reports may have used crack cocaine) accounting for triggering this episode. Frequently substance induced psychosis resolves within 1-2 days (though can also persist for 2 or more weeks); however patient has remained on both Vyvanse and Wellbutrin which could prolonged symptoms (as both can increase dopamine). Will hold both Vyvanse and Wellbutrin. Also started risperidone low-dose to help with dopamine blockade. 06/30 Patient remains with paranoid ideation; refused Risperdal. On inquiry patient said she does not think she needs it but lead technical writer continue to educate patient on medication and she said she would start taking it. Patient with some increase disorganized behaviors today, seen self-dialoguing and responding to internal stimuli at 1 point standing aimlessly in hallway, not moving. Slept only 4 hours -hopefully patient will start taking risperidone 07/01 patient remains with intermittent odd and disorganized behaviors, talking to herself in the wetzel; remains with paranoid ideations however is able to be more logical in conversation and for longer periods of time. Patient's sister visiting who gave history that patient started to a peer to be manic about 5 months ago which correlates to increased Vyvanse dose (hyperactive, rapid speech, little sleep-which patient concurred); patient's sister volunteered that she has schizoaffective disorder and has been on medication which was a surprise to patient but with this news was willing to take Risperdal 07/02 patient doing much better. Patient is more organized in both speech and behavior. Patient did take Risperdal twice yesterday but found it made her tired and did not want it anymore. However she agrees it may have been helpful. Patient for the 1st time able to talk much more logically and accurately about history and shares with lead technical writer that she has been diagnosed with bipolar disorder in the past and was at 1 point on Seroquel around 400 mg and then stabilized on Lamictal 200 mg. Patient said that she had been doing well for so long that her current psychiatric provider agreed to start peeling away her medications and Seroquel was lowered to 100 mg Lamictal tapered down to 50 mg. This taper coincided with patient being started on stimulant medication for ADHD and her Vyvanse was titrated. Patient agrees that it is very possible that the tapering off of Lamictal (she may have been on only Lamictal and not Seroquel for quite awhile) the titration of a stimulant medication is what triggered manic episode which worsened over the past few weeks and included significant paranoid ideations. Patient agrees to get back on Lamictal which caused no side effects. -remains with paranoid ideations about her but they are less intense and patient more open to reality testing; of note patient's does have schizophrenia 07/05 patient continues to be improved, overall organized in speech and behavior able to discuss diagnosis and treatment appropriately 07/06Patient more disorganized doing bizarre, odd hand movements during interview. Patient mimicking/mirroring the hand gestures of whomever is talking; some echolalia as well. Patient remains very vague when discussing her thoughts. Continues to have some paranoid ideations about her however patient's sister does agree that patient's is excessively controlling and for the past 2 years, the sister has noticed that he dictates how long and with whom patient can spend time. Patient struggles to have insight into her behaviors including when they are pointed out in real-time. However she does agree to start perphenazine\ -had discussed risks/side effects of antipsychotics 07/07 Patient denies any medications side effects. Continues to have disorganized in behaviors and now hiding in the corners of the hallway throughout the milieu; continues to mirror movements of others with intermittent echolalia. Remains very vague on what he is thinking and keeps saying she is just waiting for it to all come together. 07/08 Patient Increasingly disorganized; standing in the corner for hours, peering around it into the milieu, not talking. Patient guarded on approach. Initially refused perphenazine but was willing to discuss it with lead technical writer and patient said she does not feel like herself and hoped that the medication would help repair that. Patient agreed to increasing perphenazine to 4 mg t.i.d. -regarding diagnosis, patient has past diagnosis of bipolar disorder which reportedly was treated with Lamictal and before that Seroquel. Patient is not particularly manic but is definitely with psychotic symptoms. Will provisionally change diagnosis to schizoaffective disorder 07/09 little better today with increased dose of perphenazine which patient has been taking. She denies medication side effects and agrees that medications are helpful Still odd but less so and seems to be more organized. Still with limited insight but reports she is feeling better and more like herself though can not specifically articulate why. Patient said she had a good talk with her daughter which was helpful; also talked with the telling him she wants to separate which she said was a long time coming -seems that perphenazine is helping; will continue 07/10 Patient agitated on the unit today and yelling in the hallway. Mail Carrier discussed this with patient who expresses concern about her being with her children. pt says she gave him bad news about their marriage and is worried about his mental state. She says he has had hallucinated/paranoid delusions about their son, a few years ago. Today, she can not say what he did or said that worried her...other than vague references to his composure...reactions...like he's not in touch with reality... But with no specifics...She agrees perhaps he could just be anxious... She also says she believes he has been unmedicated for a long time She then told her lead technical writer that Juan Miguel [son] talks in code to me, like I asked 'what are you wearing to school today...' and he said 'my pink Allan shirt tomorrow...' but he does not have a pink allan shirt, which means he's talking to me in code... She said this exchange happened the week prior to this admission and that he is talking in code her so his father will not know. Patient then showed lead technical writer a picture her son made which her brought in for her during this visit; she insisted him doing so was manipulative though lead technical writer could not understand why; patient showed lead technical writer a letter her wrote to her which was generally about how he is hoping for her and he wished to get help her. Patient says she thinks it is weird though lead technical writer could not understand why. After this encounter with her , she l called PD for wellness check on son; check was completed and PD informed her that her son is OK. She signed a 3 day notice 07/11 Patient refuse perphenazine, last night and this morning. Patient barely slept and staff reports she was pacing the wetzel throughout the night. On inquiry patient said that the afternoon dose was making her feel tired; regarding the bedtime dose, she said she just does not want to take this medication and wants to try something different in the same category. Mail Carrier offered haloperidol with which she agreed. Impression: Patient remains with paranoid ideations and no insight into her own illness. She has some hypomanic behaviors; most of her problematic symptoms have been psychosis so have been focusing on antipsychotic however patient may benefit from traditional mood stabilizer; will continue to titrate Lamictal however this may not be adequate. Will hold Lexapro. -if patient willing will also consider increasing Seroquel at bedtime though concern is it would cause daytime sedation and she would refuse it. 07/12 little more organized, angry at her ; does not want Haldol, saying it makes her too sedated and agreed to Clozaril after reviewing risks/side effects -patient says she will retract her 3 day and stay a little longer 07/13 more odd behaviors today, wandering, sometimes hiding in hallway; other times social with peers. Pt witnessed self-dialouging in bedroom. Agrees to titration of clozapine. Agrees to remain on the unit longer for treatment -when patient takes perphenazine or Haldol, odd behaviors seemed to clear up; currently those have been discontinued and she is on low-dose of clozapine which is being titrated 07/14: Patient reports moderate anxiety. Denies depression. Denies paranoia. Denies SI/HI/AVH. Continue current treatment regimen. 07/15/25: Patient is not active engage in 1-1 assessment, walking the wetzel, asking this provider credential she is not legal . can you open the door? . Report to nurse that she find it helpful to distract her self by using headphone. Told nurse that she tries to have a good day. Appear sad, irritable, preoccupied and appear to be psychotic with mood swing, restless. Per nursing, patient slept for 5 hours, compliant with meds. Continue with current plan. 07/16/25: I am upset every morning and am upset now, but I don't want to talk about it. Team reports pt is upset about needing to be on the unit this weekend. Family meeting on 07/19. Pt allowed brief meeting with tw- discussed Clozapine increase by primary provider in preparation for discharge, she agrees and concurs. Team reports pt slept for ~6.5 hours. Described as anxious, guarded and labile Episodic yelling on the unit, after a telephone call with partner. Sat on the floor in the middle of the milieu, asking her primary RN to pick her up. Was able to get off the floor on her own and meet with lead technical writer briefly, however, declined to discuss what was bothering her. Denies SI,HI,AH,VH- I am just pissed, you know? No new medical/diagnostic results. Back pain relieved with Ibuprofen Plan: Clozapine to increase to 100 mg tonight per primary provider. 07/17/25: Meet with patient in exam room. Report that anxiety is very high this morning. Says that she does not want to take PRN but she took it and report feeling better. Report trying to use coping skills such as listening to music, doing some art work and talk to staff and try not to explode . Patient is visible, less irritable and more cooperative, not question regarding this provider's capacity and title. Denies SI/SIB/HI/AVH. Can be labile. No medication changes. Per nursing, slept for 6 hours, compliant with meds. Denies side effects. Continue with current treatment plan. Plan q15 Increase to clozapine 50 mg q.h.s.; will titrate by 25 mg a day as clinically indicated. Current dose at 100mg at HS DC Haldol Increased Lamictal to 125 mg: Used to be on 200 and has been on 50 mg for months HOLD Wellbutrin 300 mg daily: will monitor for psychosis. HOLD Lexapro 10 mg daily since hypomanic behaviors HOLD Vyvanse DC perphenazine; patient did not want it, saying it made her sedated DC risperidone; patient does not like and patient is improved P.R.N. Zyprexa 5mg q.4 hours p.r.n. for agitation/psychosis Seroquel 100 at bedtime for sleep. BuSpar 15 mg twice a day. Patient educated on: diagnosis, medication risk/benefits and therapeutic strategies Informed Consent: understands and further education needed Reason for continued inpatient stay Substantial Risk for: med/psych decompensation Time Spent With Patient Time: Total time managing care of this patient today ____ minutes.
[2025-07-17 20:40] VITALS: BP 115/72; PULSE 120; RESP 16; TEMP 37.4; O2SAT 100
[2025-07-18 08:00] VITALS: BP 125/59; PULSE 107; TEMP 36.9; O2SAT 100
[2025-07-18 20:00] VITALS: BP 131/83; PULSE 117; TEMP 36.9; O2SAT 100
--- NOTE | 2025-07-18 21:18 | P.PNPSI_ITS ---
Subjective Subjective Date of Service: 07/18/25 Reason For Visit: Recurrent major depression with psychosis Subjective Notes: 3 Day Healthcare Proxy: No Guardianship: No Medical Problems Affecting Mental Status: No Interim History: Medical record and nursing notes reviewed; case discussed during rounds with team/nursing staff, and met with patient for supportive therapy/psychoeducation, as well as medication management. Patient slept for 6 hours, frustrated being here. Increased anxiety this morning and not happy with her . Patient is the wetzel appear to be suspicious at the end of the wetzel, restless. She denies safety concerns, overwhelmed with coming family meeting, restless. Patient was on the phone with her , got very angry and upset, she started being loud talking about her . Able to redirect to talk to this provider in Group room C. Report that her told her she is not allowed to go home if you talk to me that way . Patient reports that her is not reasonable, not wanting to do family counseling regarding their marriage. She called him to just to talk to him in advance to prepare for tomorrow family meeting but at the end getting triggered by Scott . Patient was tearful, sad and irritable talking about her Patient accepted Ativan 1mg x1 to calm her down with good effects. Patient may benefit for medication changes but she has a three day notice in which is on Saturday. If she agrees to stay longer for treatment, will change her meds to address her mood and monitor for any side effects and effectiveness. Patient uses headphone, taking to peer and staff as coking skills. Medication Compliance: Yes Side effects from medications: No Attending Groups: Intermittent Review of Systems Acute medical concerns: No Medical Review of Systems: unchanged Review of Systems Review of Systems No SOB/ No N/V. Yes all other systems are reviewed and are negative Mental Status Exam Mental Status Exam Narrative: Appearance: Casually dressed, adequate hygiene and grooming Behavior: anxious, less irritable, engaged but restless. Eye contact is fair, and there are signs of psychomotor agitation x1. Speech: Normal volume and prosody Thought process: racing thoughts, Thought content: family meeting, denies SI/SIB/HI. Mood: anxious, can be labile Affect: Mood-congruent SI: Denies HI: Denies VH/AH: Denies Delusions: None Insight/judgment: Poor insight and judgment Memory/cog: Alert, oriented x 4. grossly intact to conversational testing Diagnostics Vital Signs (24Hr): Vital Signs - 24 hr 07/18/25 08:00 07/18/25 20:00 Temperature 98.5 F 98.5 F Pulse Rate 107 H 117 H Blood Pressure 125/59 L 131/83 Pulse Oximetry 100 100 Oxygen Delivery Method Room Air Room Air BMI result Body Mass Index 20.8 Labs 06/30/25 07:49 06/30/25 07:49 Medications Medications Current Medications Acetaminophen (Acetaminophen 325 Mg Tablet) 650 mg PO Q6H PRN PRN Reason: Headache/Pain, Scale 1-10 Last Admin: 07/06/25 14:36 Dose: 650 mg Al Hydroxide/Mg Hydroxide (Magnesium Hydrox/Alum Hydrox 30 Ml Oral.Susp) 30 ml PO Q6H PRN PRN Reason: Heartburn/Nausea Buspirone HCl (Buspirone Hcl 5 Mg Tablet) 15 mg PO BID [facility] Last Admin: 07/18/25 08:44 Dose: 15 mg Clozapine (Clozapine 100 Mg Tablet) 100 mg PO BEDTIME [facility] Last Admin: 07/17/25 22:03 Dose: 100 mg Cyclobenzaprine HCl (Cyclobenzaprine Hcl 10 Mg Tablet) 10 mg PO TID PRN PRN Reason: Muscle Spasm Hydroxyzine HCl (Hydroxyzine Hcl 25 Mg Tablet) 25 mg PO Q6H PRN PRN Reason: mild anxiety Last Admin: 07/17/25 11:13 Dose: 25 mg Ibuprofen (Ibuprofen 600 Mg Tablet) 600 mg PO Q6H PRN PRN Reason: Pain, Severe (Pain Scale 7-10) Last Admin: 07/18/25 09:45 Dose: 600 mg Lamotrigine (Lamotrigine 25 Mg Tablet) 125 mg PO BEDTIME [facility] Last Admin: 07/17/25 22:03 Dose: 125 mg Levothyroxine Sodium (Levothyroxine Sodium 75 Mcg Tablet) 75 mcg PO DAILY@0600 [facility] Last Admin: 07/18/25 06:30 Dose: 75 mcg Lidocaine HCl (Lidocaine 4 % Cream Kit) 1 appl TOPICAL ONCE PRN; Protocol PRN Reason: lower back pain Last Admin: 07/16/25 07:05 Dose: 1 appl Lorazepam (Lorazepam 0.5 Mg Tablet) 0.5 mg PO DAILY PRN PRN Reason: severe anxiety Last Admin: 07/18/25 09:45 Dose: 0.5 mg Magnesium Hydroxide (Milk Of Magnesia 30 Ml Oral.Susp) 30 ml PO DAILY PRN PRN Reason: Constipation Multivitamins/Vitamin C (Multivitamin Tablet) 1 tab PO DAILY [facility] Last Admin: 07/18/25 08:44 Dose: 1 tab Nicotine Polacrilex (Nicotine Polacrilex 2 Mg Gum) 4 mg BUCCAL Q2H PRN PRN Reason: Nicotine Cravings Prazosin HCl (Prazosin Hcl 1 Mg Capsule) 2 mg PO BEDTIME [facility]; Protocol Last Admin: 07/17/25 22:03 Dose: 2 mg Quetiapine Fumarate (Quetiapine Fumarate 100 Mg Tablet) 100 mg PO BEDTIME [facility] Last Admin: 07/17/25 22:03 Dose: 100 mg Risperidone (Risperidone 1 Mg Tablet) 1 mg PO DAILY PRN PRN Reason: disorganized behavior Trazodone HCl (Trazodone Hcl 50 Mg Tablet) 50 mg PO BEDTIME MRX1 PRN PRN Reason: Insomnia Allergies Allergies Allergy/AdvReac Type Severity Reaction Status Date / Time No Known Allergies Allergy Verified 06/24/25 17:49 Assessment & Plan Assessment & Plan (1) Schizoaffective disorder, bipolar type: Status: Acute Code(s): F25.0 - Schizoaffective disorder, bipolar type (2) Depression: Status: Acute Code(s): F32.A - Depression, unspecified Plan HPI: Pt is a 40 year old female who presented to the ED after being dropped off by a friend . Upon arrival to the ED she appeared increasingly paranoid and indicated that she was fearful she was being drugged by her and voiced concern for her and her children's safety. Pt stated that she wanted to have her medications checked as things are just off, my daily routine is off . Pt provided inconsistent information as evidence by conflicting information from what she disclosed to the ED provider upon arrival and at times appears to be a poor historian as a result of her current presentation. She remained guarded at this time and at times appeared to be minimizing symptoms as well as medication seeking as she remained primarily focused on her controlled substances that she is currently prescribed. It is to be noted. Formulation/clinical reasoning: Increasing psychotic behaviors, paranoid, disorganized thought process. Family members have safety concern regarding patient mental status at this current time. Even the above information, patient will be benefit in restrictive environment, medication management, and refer patient back to outpatient psychiatric services. Hospital course: 06/25/25: Continue with home medications. In my impression, patient may think that she just come here to get refill of her medication and will be sent home. However, other time she also stating that she has not come here for medication change as if she needs a refilled she can get it feel from her OP provider. Ativan 1 mg q.4 hours p.r.n. for severe anxiety. Home dose was only 0.5 b.i.d. p.r.n.. Stimulants: Continue with stimulants, we will monitor if it causing more psychotic behavior. Questioned if patient overused her Adderall information regarding recent weight lost, and be psychotic. 06/26/2025: Continue to encourage medication adherence and engagement. 06/27: accepting medications and requested prazosin 2mg be restarted 06/28 Patient is a limited historian due to disorganized speech and behavior. Throughout interview patient looking off in the distance, sometimes very latent responses, appearing to be internally preoccupied; frequently not finishing sentences, giving cryptic, vague and frequently unrelated responses to discussion questions. [employer] introduces himself has a doctor... Patient then asks are you a Dr.? I am not a doctor. I am Daphne... On inquiry about why patient came to the hospital, she replies, with speech latency and in broken sentences I came... I wanted medications reviewed... And wanted a toxicology... The unknown.... Things got a little unhinged... The court room... Domestic stuff. Patient goes on I was looking for my medications at my house... Interviews, talking, trying to survive all the time... The reality of things is unclear to me... Of the events. [employer] asks for clarification to which patient says, again after significant latency, the court house... I just want my Garrett back... (she later clarifies that the [place] is a multi tool knife). Patient then started to refer to another patient, saying he wants a tape measure... I have one... I can hang out... There is time and things will be revealed... Whenever thing comes together... Family and judges and worldly stuff.. [employer] asks about her earlier concern that her is poisoning her... Patient remained silent for awhile and then says I checked my meds... When I went to talk to them... I would like to see the toxicology... My back was sweating.. I was questioning reality generally... There was a 911 call... She then told curriculum writer she questioned the reality of this conversation but could not clarify further but then some something about getting her red ticket.. Regarding how she got to the hospital, patient said officers came to my house and talked to my kids...my daughter called them...since i was not feeling safe.....i know my very well...it just wasnt a good think going on...i wasn't...no...it got real.....im in survival mode...it started getting scary and dangerous...my was getting a little...red flaggs...it started to be an unsafe situation..he was not himself... Patient also said that her best friend Stephanie Holder dropped her off at the hospital; not clear how she got here. Patient gave curriculum writer permission to talk to Stephanie and also to collect information from her . denies drugs or taking her prescribed medications in excess denies hx manic episodes; yes AH but nothing to be alarmed about... Nurse Note by Karon Arora RN 06/25/25 09:54 - This RN spoke to [facility] regarding the situation that led to being present here in the ER. Per [facility] employee, yesterday there was an argument between the patient and her where both her and her received a crisis consult. Per [facility] employee, patient was originally seen by [facility] mobile crisis and it was determined she could go to respite, however, shortly after, crisis was called back to the home and the patient was sent here to the hospital. When the [facility] employee interviewed the pts 14 year old son, he reports that his mom has been acting really paranoid about things as of recently. (daughter 14yo, Son 11yo) 06/29 Patient remains with psychotic symptoms and said she thinks maybe he[] wants to kill or hurt me... [employer] inquired and patient kept coming back to the fact that he put her home medications in the wrong pill box compartments... and this is what made her think he is trying to kill her... Patient however was willing to entertain that perhaps this might not be true. However, she is significantly more organized today than she was yesterday, talking in full sentences sticking to the topic at hand. She agrees that yesterday she was feeling much more confused she is thinking more clearly today. Patient's father present who has been meeting with her daily since this admission and who agrees that she is significantly better and headed back towards her regular self. Patient agreed to sign a CV and also agreed to have Vyvanse and bupropion discontinued for now; she also agreed to take risperidone which curriculum writer explained was hopefully just for few days. IMPRESSION: Patient demonstrating psychotic symptoms, auditory hallucinations, paranoid delusions and disorganized speech and behavior; patient is certainly internally preoccupied. So far collateral reports that patient has no history of psychosis or bipolar disorder. After gathering collateral from patient's and father, both deny any history of psychosis or sukhdeep were similar such episodes. Both speculate patient may have abused prescription medications including Vyvanse (and reports may have used crack cocaine) accounting for triggering this episode. Frequently substance induced psychosis resolves within 1-2 days (though can also persist for 2 or more weeks); however patient has remained on both Vyvanse and Wellbutrin which could prolonged symptoms (as both can increase dopamine). Will hold both Vyvanse and Wellbutrin. Also started risperidone low-dose to help with dopamine blockade. 06/30 Patient remains with paranoid ideation; refused Risperdal. On inquiry patient said she does not think she needs it but curriculum writer continue to educate patient on medication and she said she would start taking it. Patient with some increase disorganized behaviors today, seen self-dialoguing and responding to internal stimuli at 1 point standing aimlessly in hallway, not moving. Slept only 4 hours -hopefully patient will start taking risperidone 07/01 patient remains with intermittent odd and disorganized behaviors, talking to herself in the wetzel; remains with paranoid ideations however is able to be more logical in conversation and for longer periods of time. Patient's sister visiting who gave history that patient started to a peer to be manic about 5 months ago which correlates to increased Vyvanse dose (hyperactive, rapid speech, little sleep-which patient concurred); patient's sister volunteered that she has schizoaffective disorder and has been on medication which was a surprise to patient but with this news was willing to take Risperdal 07/02 patient doing much better. Patient is more organized in both speech and behavior. Patient did take Risperdal twice yesterday but found it made her tired and did not want it anymore. However she agrees it may have been helpful. Patient for the 1st time able to talk much more logically and accurately about history and shares with curriculum writer that she has been diagnosed with bipolar disorder in the past and was at 1 point on Seroquel around 400 mg and then stabilized on Lamictal 200 mg. Patient said that she had been doing well for so long that her current psychiatric provider agreed to start peeling away her medications and Seroquel was lowered to 100 mg Lamictal tapered down to 50 mg. This taper coincided with patient being started on stimulant medication for ADHD and her Vyvanse was titrated. Patient agrees that it is very possible that the tapering off of Lamictal (she may have been on only Lamictal and not Seroquel for quite awhile) the titration of a stimulant medication is what triggered manic episode which worsened over the past few weeks and included significant paranoid ideations. Patient agrees to get back on Lamictal which caused no side effects. -remains with paranoid ideations about her but they are less intense and patient more open to reality testing; of note patient's does have schizophrenia 07/05 patient continues to be improved, overall organized in speech and behavior able to discuss diagnosis and treatment appropriately 07/06Patient more disorganized doing bizarre, odd hand movements during interview. Patient mimicking/mirroring the hand gestures of whomever is talking; some echolalia as well. Patient remains very vague when discussing her thoughts. Continues to have some paranoid ideations about her however patient's sister does agree that patient's is excessively controlling and for the past 2 years, the sister has noticed that he dictates how long and with whom patient can spend time. Patient struggles to have insight into her behaviors including when they are pointed out in real-time. However she does agree to start perphenazine\ -had discussed risks/side effects of antipsychotics 07/07 Patient denies any medications side effects. Continues to have disorganized in behaviors and now hiding in the corners of the hallway throughout the milieu; continues to mirror movements of others with intermittent echolalia. Remains very vague on what he is thinking and keeps saying she is just waiting for it to all come together. 07/08 Patient Increasingly disorganized; standing in the corner for hours, peering around it into the milieu, not talking. Patient guarded on approach. Initially refused perphenazine but was willing to discuss it with curriculum writer and patient said she does not feel like herself and hoped that the medication would help repair that. Patient agreed to increasing perphenazine to 4 mg t.i.d. -regarding diagnosis, patient has past diagnosis of bipolar disorder which reportedly was treated with Lamictal and before that Seroquel. Patient is not particularly manic but is definitely with psychotic symptoms. Will provisionally change diagnosis to schizoaffective disorder 07/09 little better today with increased dose of perphenazine which patient has been taking. She denies medication side effects and agrees that medications are helpful Still odd but less so and seems to be more organized. Still with limited insight but reports she is feeling better and more like herself though can not specifically articulate why. Patient said she had a good talk with her daughter which was helpful; also talked with the telling him she wants to separate which she said was a long time coming -seems that perphenazine is helping; will continue 07/10 Patient agitated on the unit today and yelling in the hallway. [employer] discussed this with patient who expresses concern about her being with her children. pt says she gave him bad news about their marriage and is worried about his mental state. She says he has had hallucinated/paranoid delusions about their son, a few years ago. Today, she can not say what he did or said that worried her...other than vague references to his composure...reactions...like he's not in touch with reality... But with no specifics...She agrees perhaps he could just be anxious... She also says she believes he has been unmedicated for a long time She then told her curriculum writer that Juan Miguel [son] talks in code to me, like I asked 'what are you wearing to school today...' and he said 'my pink Allan shirt tomorrow...' but he does not have a pink allan shirt, which means he's talking to me in code... She said this exchange happened the week prior to this admission and that he is talking in code her so his father will not know. Patient then showed curriculum writer a picture her son made which her brought in for her during this visit; she insisted him doing so was manipulative though curriculum writer could not understand why; patient showed curriculum writer a letter her wrote to her which was generally about how he is hoping for her and he wished to get help her. Patient says she thinks it is weird though curriculum writer could not understand why. After this encounter with her , she l called PD for wellness check on son; check was completed and PD informed her that her son is OK. She signed a 3 day notice 07/11 Patient refuse perphenazine, last night and this morning. Patient barely slept and staff reports she was pacing the wetzel throughout the night. On inquiry patient said that the afternoon dose was making her feel tired; regarding the bedtime dose, she said she just does not want to take this medication and wants to try something different in the same category. [employer] offered haloperidol with which she agreed. Impression: Patient remains with paranoid ideations and no insight into her own illness. She has some hypomanic behaviors; most of her problematic symptoms have been psychosis so have been focusing on antipsychotic however patient may benefit from traditional mood stabilizer; will continue to titrate Lamictal however this may not be adequate. Will hold Lexapro. -if patient willing will also consider increasing Seroquel at bedtime though concern is it would cause daytime sedation and she would refuse it. 07/12 little more organized, angry at her ; does not want Haldol, saying it makes her too sedated and agreed to Clozaril after reviewing risks/side effects -patient says she will retract her 3 day and stay a little longer 07/13 more odd behaviors today, wandering, sometimes hiding in hallway; other times social with peers. Pt witnessed self-dialouging in bedroom. Agrees to titration of clozapine. Agrees to remain on the unit longer for treatment -when patient takes perphenazine or Haldol, odd behaviors seemed to clear up; currently those have been discontinued and she is on low-dose of clozapine which is being titrated 07/14: Patient reports moderate anxiety. Denies depression. Denies paranoia. Denies SI/HI/AVH. Continue current treatment regimen. 07/15/25: Patient is not active engage in 1-1 assessment, walking the wetzel, asking this provider credential she is not legal . can you open the door? . Report to nurse that she find it helpful to distract her self by using headphone. Told nurse that she tries to have a good day. Appear sad, irritable, preoccupied and appear to be psychotic with mood swing, restless. Per nursing, patient slept for 5 hours, compliant with meds. Continue with current plan. 07/16/25: I am upset every morning and am upset now, but I don't want to talk about it. Team reports pt is upset about needing to be on the unit this weekend. Family meeting on 07/19. Pt allowed brief meeting with tw- discussed Clozapine increase by primary provider in preparation for discharge, she agrees and concurs. Team reports pt slept for ~6.5 hours. Described as anxious, guarded and labile Episodic yelling on the unit, after a telephone call with partner. Sat on the floor in the middle of the milieu, asking her primary RN to pick her up. Was able to get off the floor on her own and meet with curriculum writer briefly, however, declined to discuss what was bothering her. Denies SI,HI,AH,VH- I am just pissed, you know? No new medical/diagnostic results. Back pain relieved with Ibuprofen Plan: Clozapine to increase to 100 mg tonight per primary provider. 07/17/25: Meet with patient in exam room. Report that anxiety is very high this morning. Says that she does not want to take PRN but she took it and report feeling better. Report trying to use coping skills such as listening to music, doing some art work and talk to staff and try not to explode . Patient is visible, less irritable and more cooperative, not question regarding this provider's capacity and title. Denies SI/SIB/HI/AVH. Can be labile. No medication changes. Per nursing, slept for 6 hours, compliant with meds. Denies side effects. Continue with current treatment plan. 07/18/25: Patient slept for 6 hours, frustrated being here. Increased anxiety this morning and not happy with her . Patient is the wetzel appear to be suspicious at the end of the wetzel, restless. She denies safety concerns, overwhelmed with coming family meeting, restless. Patient was on the phone with her , got very angry and upset, she started being loud talking about her . Able to redirect to talk to this provider in Group room C. Report that her told her she is not allowed to go home if you talk to me that way . Patient reports that her is not reasonable, not wanting to do family counseling regarding their marriage. She called him to just to talk to him in advance to prepare for tomorrow family meeting but at the end getting triggered by Scott . Patient was tearful, sad and irritable talking about her Patient accepted Ativan 1mg x1 to calm her down with good effects. Patient may benefit for medication changes but she has a three day notice in which is on Saturday. If she agrees to stay longer for treatment, will change her meds to address her mood and monitor for any side effects and effectiveness. Patient uses headphone, taking to peer and staff as coking skills. Monitor VSs, elevated HR. On Clozaril Plan q15 Increase to clozapine 50 mg q.h.s.; will titrate by 25 mg a day as clinically indicated. Current dose at 100mg at HS DC Haldol Increased Lamictal to 125 mg: Used to be on 200 and has been on 50 mg for months HOLD Wellbutrin 300 mg daily: will monitor for psychosis. HOLD Lexapro 10 mg daily since hypomanic behaviors HOLD Vyvanse DC perphenazine; patient did not want it, saying it made her sedated DC risperidone; patient does not like and patient is improved P.R.N. Zyprexa 5mg q.4 hours p.r.n. for agitation/psychosis Seroquel 100 at bedtime for sleep. BuSpar 15 mg twice a day. Patient educated on: diagnosis, medication risk/benefits and therapeutic strategies Informed Consent: understands and further education needed Reason for continued inpatient stay Substantial Risk for: med/psych decompensation Time Spent With Patient Time: Total time managing care of this patient today ____ minutes.
[2025-07-19 08:00] VITALS: BP 124/74; PULSE 105; RESP 18; TEMP 36.4; O2SAT 97
--- NOTE | 2025-07-19 09:40 | P.PNPSI_ITS ---
Subjective Subjective Date of Service: 07/19/25 Reason For Visit: Recurrent major depression with psychosis Interim History: met with pt; discussed with team; reviewed chart Patient remains with psychotic symptoms and remains guarded. Today however was the 1st time she shared that she does have auditory hallucinations and will here words that at the moment she thinks are in reference to her, but she will around and see no one talking... she has not quite open to reality testing. Patient continues to have paranoid ideations. She remains quite guarded and mostly says I am just waiting for to all come together when asked further about psychotic symptoms. Patient agrees to increasing clozapine. She reports that she is starting to feel quite depressed which she thinks his partly situational, missing her kids but also just a deeper regular depression and she mentions that she has been off her Wellbutrin and Vyvanse and Lexapro. Flat Surfacer Jewel discussed the reasons for this and the concern that restarting these too soon could exacerbate symptoms which she accepts and again agrees to increase clozapine. Mental Status Exam Mental Status Exam Narrative: Pt is alert and oriented; behavior remains intermittently odd, making odd movements with her hands in the hallway; sometimes able to socialize, but often stands in the wetzel, peering around corner; self-dialoguing; can be guarded and superficial but is also cooperative and friendly on approach; patient is not in distress; dressed in casual attire with adequate grooming and hygiene; mood is described as good and affect remains intermittently furtive but overall brighter more calm; eye contact appropriate; Speech is normal rate, volume and prosody and not pressured; intermittent psychomotor agitation present; thought process a little more linear; Thought content is on paranoid ideations; denies any SI/HI. +AH and pt intermittently internally preoccupied. Patients insight and judgment impaired Diagnostics Vital Signs (24Hr): Vital Signs - 24 hr 07/18/25 20:00 07/19/25 08:00 Temperature 98.5 F 97.6 F Pulse Rate 117 H 105 H Respiratory Rate 18 Blood Pressure 131/83 124/74 Pulse Oximetry 100 97 Oxygen Delivery Method Room Air Room Air BMI result Body Mass Index 20.8 Labs 06/30/25 07:49 06/30/25 07:49 Medications Medications Current Medications Acetaminophen (Acetaminophen 325 Mg Tablet) 650 mg PO Q6H PRN PRN Reason: Headache/Pain, Scale 1-10 Last Admin: 07/06/25 14:36 Dose: 650 mg Al Hydroxide/Mg Hydroxide (Magnesium Hydrox/Alum Hydrox 30 Ml Oral.Susp) 30 ml PO Q6H PRN PRN Reason: Heartburn/Nausea Buspirone HCl (Buspirone Hcl 5 Mg Tablet) 15 mg PO BID [facility] Last Admin: 07/19/25 08:19 Dose: 15 mg Clozapine (Clozapine 100 Mg Tablet) 100 mg PO BEDTIME [facility] Last Admin: 07/18/25 22:27 Dose: 100 mg Cyclobenzaprine HCl (Cyclobenzaprine Hcl 10 Mg Tablet) 10 mg PO TID PRN PRN Reason: Muscle Spasm Hydroxyzine HCl (Hydroxyzine Hcl 25 Mg Tablet) 25 mg PO Q6H PRN PRN Reason: mild anxiety Last Admin: 07/17/25 11:13 Dose: 25 mg Ibuprofen (Ibuprofen 600 Mg Tablet) 600 mg PO Q6H PRN PRN Reason: Pain, Severe (Pain Scale 7-10) Last Admin: 07/18/25 09:45 Dose: 600 mg Lamotrigine (Lamotrigine 25 Mg Tablet) 125 mg PO BEDTIME [facility] Last Admin: 07/18/25 22:24 Dose: 125 mg Levothyroxine Sodium (Levothyroxine Sodium 75 Mcg Tablet) 75 mcg PO DAILY@0600 [facility] Last Admin: 07/19/25 06:47 Dose: 75 mcg Lidocaine HCl (Lidocaine 4 % Cream Kit) 1 appl TOPICAL ONCE PRN; Protocol PRN Reason: lower back pain Last Admin: 07/16/25 07:05 Dose: 1 appl Lorazepam (Lorazepam 0.5 Mg Tablet) 0.5 mg PO DAILY PRN PRN Reason: severe anxiety Last Admin: 07/18/25 09:45 Dose: 0.5 mg Magnesium Hydroxide (Milk Of Magnesia 30 Ml Oral.Susp) 30 ml PO DAILY PRN PRN Reason: Constipation Multivitamins/Vitamin C (Multivitamin Tablet) 1 tab PO DAILY [facility] Last Admin: 07/19/25 08:19 Dose: 1 tab Nicotine Polacrilex (Nicotine Polacrilex 2 Mg Gum) 4 mg BUCCAL Q2H PRN PRN Reason: Nicotine Cravings Prazosin HCl (Prazosin Hcl 1 Mg Capsule) 2 mg PO BEDTIME [facility]; Protocol Last Admin: 07/18/25 22:26 Dose: 2 mg Quetiapine Fumarate (Quetiapine Fumarate 100 Mg Tablet) 100 mg PO BEDTIME [facility] Last Admin: 07/18/25 22:27 Dose: 100 mg Risperidone (Risperidone 1 Mg Tablet) 1 mg PO DAILY PRN PRN Reason: disorganized behavior Trazodone HCl (Trazodone Hcl 50 Mg Tablet) 50 mg PO BEDTIME MRX1 PRN PRN Reason: Insomnia Allergies Allergies Allergy/AdvReac Type Severity Reaction Status Date / Time No Known Allergies Allergy Verified 06/24/25 17:49 Assessment & Plan Assessment & Plan (1) Schizoaffective disorder, bipolar type: Status: Acute Code(s): F25.0 - Schizoaffective disorder, bipolar type (2) Depression: Status: Acute Code(s): F32.A - Depression, unspecified Plan HPI: Pt is a 40 year old female who presented to the ED after being dropped off by a friend . Upon arrival to the ED she appeared increasingly paranoid and indicated that she was fearful she was being drugged by her and voiced concern for her and her children's safety. Pt stated that she wanted to have her medications checked as things are just off, my daily routine is off . Pt provided inconsistent information as evidence by conflicting information from what she disclosed to the ED provider upon arrival and at times appears to be a poor historian as a result of her current presentation. She remained guarded at this time and at times appeared to be minimizing symptoms as well as medication seeking as she remained primarily focused on her controlled substances that she is currently prescribed. It is to be noted. Formulation/clinical reasoning: Increasing psychotic behaviors, paranoid, disorganized thought process. Family members have safety concern regarding patient mental status at this current time. Even the above information, patient will be benefit in restrictive environment, medication management, and refer patient back to outpatient psychiatric services. Hospital course: 06/25/25: Continue with home medications. In my impression, patient may think that she just come here to get refill of her medication and will be sent home. However, other time she also stating that she has not come here for medication change as if she needs a refilled she can get it feel from her OP provider. Ativan 1 mg q.4 hours p.r.n. for severe anxiety. Home dose was only 0.5 b.i.d. p.r.n.. Stimulants: Continue with stimulants, we will monitor if it causing more psychotic behavior. Questioned if patient overused her Adderall information regarding recent weight lost, and be psychotic. 06/26/2025: Continue to encourage medication adherence and engagement. 06/27: accepting medications and requested prazosin 2mg be restarted 06/28 Patient is a limited historian due to disorganized speech and behavior. Throughout interview patient looking off in the distance, sometimes very latent responses, appearing to be internally preoccupied; frequently not finishing sentences, giving cryptic, vague and frequently unrelated responses to discussion questions. Flat Surfacer Jewel introduces himself has a doctor... Patient then asks are you a Dr.? I am not a doctor. I am Daphne... On inquiry about why patient came to the hospital, she replies, with speech latency and in broken sentences I came... I wanted medications reviewed... And wanted a toxicology... The unknown.... Things got a little unhinged... The court room... Domestic stuff. Patient goes on I was looking for my medications at my house... Interviews, talking, trying to survive all the time... The reality of things is unclear to me... Of the events. Flat Surfacer Jewel asks for clarification to which patient says, again after significant latency, the court house... I just want my Garrett back... (she later clarifies that the Hanna is a multi tool knife). Patient then started to refer to another patient, saying he wants a tape measure... I have one... I can hang out... There is time and things will be revealed... Whenever thing comes together... Family and judges and worldly stuff.. Flat Surfacer Jewel asks about her earlier concern that her is poisoning her... Patient remained silent for awhile and then says I checked my meds... When I went to talk to them... I would like to see the toxicology... My back was sweating.. I was questioning reality generally... There was a 911 call... She then told technical writer and editor she questioned the reality of this conversation but could not clarify further but then some something about getting her red ticket.. Regarding how she got to the hospital, patient said officers came to my house and talked to my kids...my daughter called them...since i was not feeling safe.....i know my very well...it just wasnt a good think going on...i wasn't...no...it got real.....im in survival mode...it started getting scary and dangerous...my was getting a little...red flaggs...it started to be an unsafe situation..he [] was not himself... Patient also said that her best friend Stephanie Holder dropped her off at the hospital; not clear how she got here. Patient gave technical writer and editor permission to talk to Stephanie and also to collect information from her . denies drugs or taking her prescribed medications in excess denies hx manic episodes; yes AH but nothing to be alarmed about... Nurse Note by Karon Arora RN 06/25/25 09:54 - This RN spoke to [facility] regarding the situation that led to being present here in the ER. Per [facility] employee, yesterday there was an argument between the patient and her where both her and her received a crisis consult. Per [facility] employee, patient was originally seen by [facility] crisis and it was determined she could go to respite, however, shortly after, crisis was called back to the home and the patient was sent here to the hospital. When the [facility] employee interviewed the pts 14 year old son, he reports that his mom has been acting really paranoid about things as of recently. (daughter 14yo, Son 11yo) 06/29 Patient remains with psychotic symptoms and said she thinks maybe he[] wants to kill or hurt me... Flat Surfacer Jewel inquired and patient kept coming back to the fact that he put her home medications in the wrong pill box compartments... and this is what made her think he is trying to kill her... Patient however was willing to entertain that perhaps this might not be true. However, she is significantly more organized today than she was yesterday, talking in full sentences sticking to the topic at hand. She agrees that yesterday she was feeling much more confused she is thinking more clearly today. Patient's father present who has been meeting with her daily since this admission and who agrees that she is significantly better and headed back towards her regular self. Patient agreed to sign a CV and also agreed to have Vyvanse and bupropion discontinued for now; she also agreed to take risperidone which technical writer and editor explained was hopefully just for few days. IMPRESSION: Patient demonstrating psychotic symptoms, auditory hallucinations, paranoid delusions and disorganized speech and behavior; patient is certainly internally preoccupied. So far collateral reports that patient has no history of psychosis or bipolar disorder. After gathering collateral from patient's and father, both deny any history of psychosis or sukhdeep were similar such episodes. Both speculate patient may have abused prescription medications including Vyvanse (and reports may have used crack cocaine) accounting for triggering this episode. Frequently substance induced psychosis resolves within 1-2 days (though can also persist for 2 or more weeks); however patient has remained on both Vyvanse and Wellbutrin which could prolonged symptoms (as both can increase dopamine). Will hold both Vyvanse and Wellbutrin. Also started risperidone low-dose to help with dopamine blockade. 06/30 Patient remains with paranoid ideation; refused Risperdal. On inquiry patient said she does not think she needs it but technical writer and editor continue to educate patient on medication and she said she would start taking it. Patient with some increase disorganized behaviors today, seen self-dialoguing and responding to internal stimuli at 1 point standing aimlessly in hallway, not moving. Slept only 4 hours -hopefully patient will start taking risperidone 07/01 patient remains with intermittent odd and disorganized behaviors, talking to herself in the wetzel; remains with paranoid ideations however is able to be more logical in conversation and for longer periods of time. Patient's sister visiting who gave history that patient started to a peer to be manic about 5 months ago which correlates to increased Vyvanse dose (hyperactive, rapid speech, little sleep-which patient concurred); patient's sister volunteered that she has schizoaffective disorder and has been on medication which was a surprise to patient but with this news was willing to take Risperdal 07/02 patient doing much better. Patient is more organized in both speech and behavior. Patient did take Risperdal twice yesterday but found it made her tired and did not want it anymore. However she agrees it may have been helpful. Patient for the 1st time able to talk much more logically and accurately about history and shares with technical writer and editor that she has been diagnosed with bipolar disorder in the past and was at 1 point on Seroquel around 400 mg and then stabilized on Lamictal 200 mg. Patient said that she had been doing well for so long that her current psychiatric provider agreed to start peeling away her medications and Seroquel was lowered to 100 mg Lamictal tapered down to 50 mg. This taper coincided with patient being started on stimulant medication for ADHD and her Vyvanse was titrated. Patient agrees that it is very possible that the tapering off of Lamictal (she may have been on only Lamictal and not Seroquel for quite awhile) the titration of a stimulant medication is what triggered manic episode which worsened over the past few weeks and included significant paranoid ideations. Patient agrees to get back on Lamictal which caused no side effects. -remains with paranoid ideations about her but they are less intense and patient more open to reality testing; of note patient's does have schizophrenia 07/05 patient continues to be improved, overall organized in speech and behavior able to discuss diagnosis and treatment appropriately 07/06Patient more disorganized doing bizarre, odd hand movements during interview. Patient mimicking/mirroring the hand gestures of whomever is talking; some echolalia as well. Patient remains very vague when discussing her thoughts. Continues to have some paranoid ideations about her however patient's sister does agree that patient's is excessively controlling and for the past 2 years, the sister has noticed that he dictates how long and with whom patient can spend time. Patient struggles to have insight into her behaviors including when they are pointed out in real-time. However she does agree to start perphenazine\ -had discussed risks/side effects of antipsychotics 07/07 Patient denies any medications side effects. Continues to have disorganized in behaviors and now hiding in the corners of the hallway throughout the milieu; continues to mirror movements of others with intermittent echolalia. Remains very vague on what he is thinking and keeps saying she is just waiting for it to all come together. 07/08 Patient Increasingly disorganized; standing in the corner for hours, peering around it into the milieu, not talking. Patient guarded on approach. Initially refused perphenazine but was willing to discuss it with technical writer and editor and patient said she does not feel like herself and hoped that the medication would help repair that. Patient agreed to increasing perphenazine to 4 mg t.i.d. -regarding diagnosis, patient has past diagnosis of bipolar disorder which reportedly was treated with Lamictal and before that Seroquel. Patient is not particularly manic but is definitely with psychotic symptoms. Will provisionally change diagnosis to schizoaffective disorder 07/09 little better today with increased dose of perphenazine which patient has been taking. She denies medication side effects and agrees that medications are helpful Still odd but less so and seems to be more organized. Still with limited insight but reports she is feeling better and more like herself though can not specifically articulate why. Patient said she had a good talk with her daughter which was helpful; also talked with the telling him she wants to separate which she said was a long time coming -seems that perphenazine is helping; will continue 07/10 Patient agitated on the unit today and yelling in the hallway. Flat Surfacer Jewel discussed this with patient who expresses concern about her being with her children. pt says she gave him bad news about their marriage and is worried about his mental state. She says he has had hallucinated/paranoid delusions about their son, a few years ago. Today, she can not say what he did or said that worried her...other than vague references to his composure...reactions...like he's not in touch with reality... But with no specifics...She agrees perhaps he could just be anxious... She also says she believes he has been unmedicated for a long time She then told her technical writer and editor that Juan Miguel [son] talks in code to me, like I asked 'what are you wearing to school today...' and he said 'my pink Allan shirt tomorrow...' but he does not have a pink allan shirt, which means he's talking to me in code... She said this exchange happened the week prior to this admission and that he is talking in code her so his father will not know. Patient then showed technical writer and editor a picture her son made which her brought in for her during this visit; she insisted him doing so was manipulative though technical writer and editor could not understand why; patient showed technical writer and editor a letter her wrote to her which was generally about how he is hoping for her and he wished to get help her. Patient says she thinks it is weird though technical writer and editor could not understand why. After this encounter with her , she l called PD for wellness check on son; check was completed and PD informed her that her son is OK. She signed a 3 day notice 07/11 Patient refuse perphenazine, last night and this morning. Patient barely slept and staff reports she was pacing the wetzel throughout the night. On inquiry patient said that the afternoon dose was making her feel tired; regarding the bedtime dose, she said she just does not want to take this medication and wants to try something different in the same category. Flat Surfacer Jewel offered haloperidol with which she agreed. Impression: Patient remains with paranoid ideations and no insight into her own illness. She has some hypomanic behaviors; most of her problematic symptoms have been psychosis so have been focusing on antipsychotic however patient may benefit from traditional mood stabilizer; will continue to titrate Lamictal however this may not be adequate. Will hold Lexapro. -if patient willing will also consider increasing Seroquel at bedtime though concern is it would cause daytime sedation and she would refuse it. 07/12 little more organized, angry at her ; does not want Haldol, saying it makes her too sedated and agreed to Clozaril after reviewing risks/side effects -patient says she will retract her 3 day and stay a little longer 07/13 more odd behaviors today, wandering, sometimes hiding in hallway; other times social with peers. Pt witnessed self-dialouging in bedroom. Agrees to titration of clozapine. Agrees to remain on the unit longer for treatment -when patient takes perphenazine or Haldol, odd behaviors seemed to clear up; currently those have been discontinued and she is on low-dose of clozapine which is being titrated 07/14: Patient reports moderate anxiety. Denies depression. Denies paranoia. Denies SI/HI/AVH. Continue current treatment regimen. 07/15/25: Patient is not active engage in 1-1 assessment, walking the wetzel, asking this provider credential she is not legal . can you open the door? . Report to nurse that she find it helpful to distract her self by using headphone. Told nurse that she tries to have a good day. Appear sad, irritable, preoccupied and appear to be psychotic with mood swing, restless. Per nursing, patient slept for 5 hours, compliant with meds. Continue with current plan. 07/16/25: I am upset every morning and am upset now, but I don't want to talk about it. Team reports pt is upset about needing to be on the unit this weekend. Family meeting on 07/19. Pt allowed brief meeting with tw- discussed Clozapine increase by primary provider in preparation for discharge, she agrees and concurs. Team reports pt slept for ~6.5 hours. Described as anxious, guarded and labile Episodic yelling on the unit, after a telephone call with partner. Sat on the floor in the middle of the milieu, asking her primary RN to pick her up. Was able to get off the floor on her own and meet with technical writer and editor briefly, however, declined to discuss what was bothering her. Denies SI,HI,AH,VH- I am just pissed, you know? No new medical/diagnostic results. Back pain relieved with Ibuprofen Plan: Clozapine to increase to 100 mg tonight per primary provider. 07/17/25: Meet with patient in exam room. Report that anxiety is very high this morning. Says that she does not want to take PRN but she took it and report feeling better. Report trying to use coping skills such as listening to music, doing some art work and talk to staff and try not to explode . Patient is visible, less irritable and more cooperative, not question regarding this provider's capacity and title. Denies SI/SIB/HI/AVH. Can be labile. No medication changes. Per nursing, slept for 6 hours, compliant with meds. Denies side effects. Continue with current treatment plan. 07/18/25: Patient slept for 6 hours, frustrated being here. Increased anxiety this morning and not happy with her . Patient is the wetzel appear to be suspicious at the end of the wetzel, restless. She denies safety concerns, overwhelmed with coming family meeting, restless. Patient was on the phone with her , got very angry and upset, she started being loud talking about her . Able to redirect to talk to this provider in Group room C. Report that her told her she is not allowed to go home if you talk to me that way . Patient reports that her is not reasonable, not wanting to do family counseling regarding their marriage. She called him to just to talk to him in advance to prepare for tomorrow family meeting but at the end getting triggered by Scott . Patient was tearful, sad and irritable talking about her Patient accepted Ativan 1mg x1 to calm her down with good effects. 07/19 Patient remains with psychotic symptoms and remains guarded. Bizarre movements in the milieu. Today however was the 1st time she shared that she does have auditory hallucinations and will here words that at the moment she thinks are in reference to her, but she will around and see no one talking... she has not quite open to reality testing. Patient continues to have paranoid ideations. She remains quite guarded and mostly says I am just waiting for to all come together when asked further about psychotic symptoms. Patient agrees to increasing clozapine. She reports that she is starting to feel quite depressed which she thinks his partly situational, missing her kids but also just a deeper regular depression and she mentions that she has been off her Wellbutrin and Vyvanse and Lexapro. [employer] Jewel discussed the reasons for this and the concern that restarting these too soon could exacerbate symptoms which she accepts and again agrees to increase clozapine; also agrees to continued Lamictal increase Plan q15 Increase to clozapine 150 mg q.h.s. DC Haldol Increased Lamictal to 150 mg: Used to be on 200 and has been on 50 mg for months HOLD Wellbutrin 300 mg daily: will monitor for psychosis. HOLD Lexapro 10 mg daily since hypomanic behaviors HOLD Vyvanse DC perphenazine; patient did not want it, saying it made her sedated DC risperidone; patient does not like and patient is improved P.R.N. Zyprexa 5mg q.4 hours p.r.n. for agitation/psychosis Seroquel 100 at bedtime for sleep. BuSpar 15 mg twice a day. Patient educated on: diagnosis, medication risk/benefits and therapeutic strategies Informed Consent: understands, does not understand and further education needed Reason for continued inpatient stay Substantial Risk for: rapid decompensation Time Spent With Patient Time: Total time managing care of this patient today ____ minutes.
[2025-07-19 20:00] VITALS: BP 123/84; PULSE 108; RESP 16; TEMP 36.7; O2SAT 100
[2025-07-20 07:53] LABS: Neut%MD 56.7 %; WBCANC 10.4 X10*3/uL
[2025-07-20 08:00] VITALS: BP 114/57; PULSE 104; RESP 16; TEMP 36.8; O2SAT 100
--- NOTE | 2025-07-20 11:27 | P.PNPSI_ITS ---
Subjective Subjective Date of Service: 07/20/25 Reason For Visit: Recurrent major depression with psychosis Interim History: Met with patient; discussed with team Patient now back to mirroring various staff; continues with bizarre movements in hallway. Patient opened up a bit more about her thoughts. Regarding mirroring, she at 1st said it was a joke but then she acknowledged that it is not a joke... She shared that she thinks perhaps this admission is all a set up and that this is not a real hospital unit, that this junior underwriter is not a real doctor and that the staff are all involved in this set up.. She could not explain why such as set up would be occurring and somehow her mirroring Staff is a part of this life. Compliance Nurse attempted reality testing and patient was not opposed to it but says she is not sure if she believes that this junior underwriter is a real doctor or that this is a real hospital wings; regarding the unit, she says it looks different, it set a part... It is not new... It is not a part of the hospital. Patient agreed to consider that this police might just be her mind playing tricks on her and junior underwriter reassured her that all of this is in fact real and that she is being treated for in illness. She continues to report AH but remains vague about it. Mental Status Exam Mental Status Exam Narrative: Pt is alert and oriented; behavior remains intermittently odd, making odd movements with her hands in the hallway, mirroring staffs movements; sometimes able to socialize, but often stands in the wetzel, peering around corner; self- dialoguing; can be guarded and superficial but is also cooperative and friendly on approach; patient is not in distress; dressed in casual attire with adequate grooming and hygiene; mood is described as good and affect remains intermittently furtive but overall brighter more calm; eye contact appropriate; Speech is normal rate, volume and prosody and not pressured; intermittent psychomotor agitation present; thought process a little more linear; Thought content is on paranoid ideations; denies any SI/HI. +AH and pt intermittently internally preoccupied. Patients insight and judgment impaired Diagnostics Vital Signs (24Hr): Vital Signs - 24 hr 07/19/25 20:00 07/20/25 08:00 Temperature 98.1 F 98.2 F Pulse Rate 108 H 104 H Respiratory Rate 16 16 Blood Pressure 123/84 114/57 L Pulse Oximetry 100 100 Oxygen Delivery Method Room Air Room Air BMI result Body Mass Index 20.8 Labs 06/30/25 07:49 06/30/25 07:49 Labs: Laboratory Results - last 48 hr 07/20/25 07:41 Absolute Neuts (auto) 5.9 Medications Medications Current Medications Acetaminophen (Acetaminophen 325 Mg Tablet) 650 mg PO Q6H PRN PRN Reason: Headache/Pain, Scale 1-10 Last Admin: 07/06/25 14:36 Dose: 650 mg Al Hydroxide/Mg Hydroxide (Magnesium Hydrox/Alum Hydrox 30 Ml Oral.Susp) 30 ml PO Q6H PRN PRN Reason: Heartburn/Nausea Buspirone HCl (Buspirone Hcl 5 Mg Tablet) 15 mg PO BID [facility] Last Admin: 07/20/25 09:05 Dose: 15 mg Clozapine (Clozapine 25 Mg Tablet) 125 mg PO BEDTIME [facility] Last Admin: 07/19/25 23:32 Dose: 125 mg Cyclobenzaprine HCl (Cyclobenzaprine Hcl 10 Mg Tablet) 10 mg PO TID PRN PRN Reason: Muscle Spasm Hydroxyzine HCl (Hydroxyzine Hcl 25 Mg Tablet) 25 mg PO Q6H PRN PRN Reason: mild anxiety Last Admin: 07/17/25 11:13 Dose: 25 mg Ibuprofen (Ibuprofen 600 Mg Tablet) 600 mg PO Q6H PRN PRN Reason: Pain, Severe (Pain Scale 7-10) Last Admin: 07/20/25 09:45 Dose: 600 mg Lamotrigine (Lamotrigine 25 Mg Tablet) 150 mg PO BEDTIME [facility] Last Admin: 07/19/25 23:32 Dose: 150 mg Levothyroxine Sodium (Levothyroxine Sodium 75 Mcg Tablet) 75 mcg PO DAILY@0600 [facility] Last Admin: 07/20/25 07:08 Dose: 75 mcg Lidocaine HCl (Lidocaine 4 % Cream Kit) 1 appl TOPICAL ONCE PRN; Protocol PRN Reason: lower back pain Last Admin: 07/16/25 07:05 Dose: 1 appl Lorazepam (Lorazepam 0.5 Mg Tablet) 0.5 mg PO DAILY PRN PRN Reason: severe anxiety Last Admin: 07/20/25 09:45 Dose: 0.5 mg Magnesium Hydroxide (Milk Of Magnesia 30 Ml Oral.Susp) 30 ml PO DAILY PRN PRN Reason: Constipation Multivitamins/Vitamin C (Multivitamin Tablet) 1 tab PO DAILY RATNA Last Admin: 07/20/25 09:05 Dose: 1 tab Nicotine Polacrilex (Nicotine Polacrilex 2 Mg Gum) 4 mg BUCCAL Q2H PRN PRN Reason: Nicotine Cravings Prazosin HCl (Prazosin Hcl 1 Mg Capsule) 2 mg PO BEDTIME RATNA; Protocol Last Admin: 07/19/25 23:31 Dose: 2 mg Quetiapine Fumarate (Quetiapine Fumarate 100 Mg Tablet) 100 mg PO BEDTIME RATNA Last Admin: 07/19/25 23:31 Dose: 100 mg Risperidone (Risperidone 1 Mg Tablet) 1 mg PO DAILY PRN PRN Reason: disorganized behavior Trazodone HCl (Trazodone Hcl 50 Mg Tablet) 50 mg PO BEDTIME MRX1 PRN PRN Reason: Insomnia Allergies Allergies Allergy/AdvReac Type Severity Reaction Status Date / Time No Known Allergies Allergy Verified 06/24/25 17:49 Assessment & Plan Assessment & Plan (1) Schizoaffective disorder, bipolar type: Status: Acute Code(s): F25.0 - Schizoaffective disorder, bipolar type (2) Depression: Status: Acute Code(s): F32.A - Depression, unspecified (3) PTSD (post-traumatic stress disorder): Status: Acute Code(s): F43.10 - Post-traumatic stress disorder, unspecified Plan HPI: Pt is a 40 year old female who presented to the ED after being dropped off by a friend . Upon arrival to the ED she appeared increasingly paranoid and indicated that she was fearful she was being drugged by her and voiced concern for her and her children's safety. Pt stated that she wanted to have her medications checked as things are just off, my daily routine is off . Pt provided inconsistent information as evidence by conflicting information from what she disclosed to the ED provider upon arrival and at times appears to be a poor historian as a result of her current presentation. She remained guarded at this time and at times appeared to be minimizing symptoms as well as medication seeking as she remained primarily focused on her controlled substances that she is currently prescribed. It is to be noted. Formulation/clinical reasoning: Increasing psychotic behaviors, paranoid, disorganized thought process. Family members have safety concern regarding patient mental status at this current time. Even the above information, patient will be benefit in restrictive environment, medication management, and refer patient back to outpatient psychiatric services. Hospital course: 06/25/25: Continue with home medications. In my impression, patient may think that she just come here to get refill of her medication and will be sent home. However, other time she also stating that she has not come here for medication change as if she needs a refilled she can get it feel from her OP provider. Ativan 1 mg q.4 hours p.r.n. for severe anxiety. Home dose was only 0.5 b.i.d. p.r.n.. Stimulants: Continue with stimulants, we will monitor if it causing more psychotic behavior. Questioned if patient overused her Adderall information regarding recent weight lost, and be psychotic. 06/26/2025: Continue to encourage medication adherence and engagement. 06/27: accepting medications and requested prazosin 2mg be restarted 06/28 Patient is a limited historian due to disorganized speech and behavior. Throughout interview patient looking off in the distance, sometimes very latent responses, appearing to be internally preoccupied; frequently not finishing sentences, giving cryptic, vague and frequently unrelated responses to discussion questions. Compliance Nurse introduces himself has a doctor... Patient then asks are you a Dr.? I am not a doctor. I am Daphne... On inquiry about why patient came to the hospital, she replies, with speech latency and in broken sentences I came... I wanted medications reviewed... And wanted a toxicology... The unknown.... Things got a little unhinged... The court room... Domestic stuff. Patient goes on I was looking for my medications at my house... Interviews, talking, trying to survive all the time... The reality of things is unclear to me... Of the events. Compliance Nurse asks for clarification to which patient says, again after significant latency, the court house... I just want my Garrett back... (she later clarifies that the Garrett is a multi tool knife). Patient then started to refer to another patient, saying he wants a tape measure... I have one... I can hang out... There is time and things will be revealed... Whenever thing comes together... Family and judges and worldly stuff.. Compliance Nurse asks about her earlier concern that her is poisoning her... Patient remained silent for awhile and then says I checked my meds... When I went to talk to them... I would like to see the toxicology... My back was sweating.. I was questioning reality generally... There was a 911 call... She then told junior underwriter she questioned the reality of this conversation but could not clarify further but then some something about getting her red ticket.. Regarding how she got to the hospital, patient said officers came to my house and talked to my kids...my daughter called them...since i was not feeling safe.....i know my very well...it just wasnt a good think going on...i wasn't...no...it got real.....im in survival mode...it started getting scary and dangerous...my was getting a little...red flaggs...it started to be an unsafe situation..he [] was not himself... Patient also said that her best friend Stephanie Holder dropped her off at the hospital; not clear how she got here. Patient gave junior underwriter permission to talk to Stephanie and also to collect information from her . denies drugs or taking her prescribed medications in excess denies hx manic episodes; yes AH but nothing to be alarmed about... Nurse Note by Karon Arora RN 06/25/25 09:54 - This RN spoke to [facility] regarding the situation that led to being present here in the ER. Per [facility] employee, yesterday there was an argument between the patient and her where both her and her received a crisis consult. Per [facility] employee, patient was originally seen by [facility] crisis and it was determined she could go to respite, however, shortly after, crisis was called back to the home and the patient was sent here to the hospital. When the [facility] employee interviewed the pts 14 year old son, he reports that his mom has been acting really paranoid about things as of recently. (daughter 14yo, Son 11yo) 06/29 Patient remains with psychotic symptoms and said she thinks maybe he[] wants to kill or hurt me... Compliance Nurse inquired and patient kept coming back to the fact that he put her home medications in the wrong pill box compartments... and this is what made her think he is trying to kill her... Patient however was willing to entertain that perhaps this might not be true. However, she is significantly more organized today than she was yesterday, talking in full sentences sticking to the topic at hand. She agrees that yesterday she was feeling much more confused she is thinking more clearly today. Patient's father present who has been meeting with her daily since this admission and who agrees that she is significantly better and headed back towards her regular self. Patient agreed to sign a CV and also agreed to have Vyvanse and bupropion discontinued for now; she also agreed to take risperidone which junior underwriter explained was hopefully just for few days. IMPRESSION: Patient demonstrating psychotic symptoms, auditory hallucinations, paranoid delusions and disorganized speech and behavior; patient is certainly internally preoccupied. So far collateral reports that patient has no history of psychosis or bipolar disorder. After gathering collateral from patient's and father, both deny any history of psychosis or sukhdeep were similar such episodes. Both speculate patient may have abused prescription medications including Vyvanse (and reports may have used crack cocaine) accounting for triggering this episode. Frequently substance induced psychosis resolves within 1-2 days (though can also persist for 2 or more weeks); however patient has remained on both Vyvanse and Wellbutrin which could prolonged symptoms (as both can increase dopamine). Will hold both Vyvanse and Wellbutrin. Also started risperidone low-dose to help with dopamine blockade. 06/30 Patient remains with paranoid ideation; refused Risperdal. On inquiry patient said she does not think she needs it but junior underwriter continue to educate patient on medication and she said she would start taking it. Patient with some increase disorganized behaviors today, seen self-dialoguing and responding to internal stimuli at 1 point standing aimlessly in hallway, not moving. Slept only 4 hours -hopefully patient will start taking risperidone 07/01 patient remains with intermittent odd and disorganized behaviors, talking to herself in the wetzel; remains with paranoid ideations however is able to be more logical in conversation and for longer periods of time. Patient's sister visiting who gave history that patient started to a peer to be manic about 5 months ago which correlates to increased Vyvanse dose (hyperactive, rapid speech, little sleep-which patient concurred); patient's sister volunteered that she has schizoaffective disorder and has been on medication which was a surprise to patient but with this news was willing to take Risperdal 07/02 patient doing much better. Patient is more organized in both speech and behavior. Patient did take Risperdal twice yesterday but found it made her tired and did not want it anymore. However she agrees it may have been helpful. Patient for the 1st time able to talk much more logically and accurately about history and shares with junior underwriter that she has been diagnosed with bipolar disorder in the past and was at 1 point on Seroquel around 400 mg and then stabilized on Lamictal 200 mg. Patient said that she had been doing well for so long that her current psychiatric provider agreed to start peeling away her medications and Seroquel was lowered to 100 mg Lamictal tapered down to 50 mg. This taper coincided with patient being started on stimulant medication for ADHD and her Vyvanse was titrated. Patient agrees that it is very possible that the tapering off of Lamictal (she may have been on only Lamictal and not Seroquel for quite awhile) the titration of a stimulant medication is what triggered manic episode which worsened over the past few weeks and included significant paranoid ideations. Patient agrees to get back on Lamictal which caused no side effects. -remains with paranoid ideations about her but they are less intense and patient more open to reality testing; of note patient's does have schizophrenia 07/05 patient continues to be improved, overall organized in speech and behavior able to discuss diagnosis and treatment appropriately 07/06Patient more disorganized doing bizarre, odd hand movements during interview. Patient mimicking/mirroring the hand gestures of whomever is talking; some echolalia as well. Patient remains very vague when discussing her thoughts. Continues to have some paranoid ideations about her however patient's sister does agree that patient's is excessively controlling and for the past 2 years, the sister has noticed that he dictates how long and with whom patient can spend time. Patient struggles to have insight into her behaviors including when they are pointed out in real-time. However she does agree to start perphenazine\ -had discussed risks/side effects of antipsychotics 07/07 Patient denies any medications side effects. Continues to have disorganized in behaviors and now hiding in the corners of the hallway throughout the milieu; continues to mirror movements of others with intermittent echolalia. Remains very vague on what he is thinking and keeps saying she is just waiting for it to all come together. 07/08 Patient Increasingly disorganized; standing in the corner for hours, peering around it into the milieu, not talking. Patient guarded on approach. Initially refused perphenazine but was willing to discuss it with junior underwriter and patient said she does not feel like herself and hoped that the medication would help repair that. Patient agreed to increasing perphenazine to 4 mg t.i.d. -regarding diagnosis, patient has past diagnosis of bipolar disorder which reportedly was treated with Lamictal and before that Seroquel. Patient is not particularly manic but is definitely with psychotic symptoms. Will provisionally change diagnosis to schizoaffective disorder 07/09 little better today with increased dose of perphenazine which patient has been taking. She denies medication side effects and agrees that medications are helpful Still odd but less so and seems to be more organized. Still with limited insight but reports she is feeling better and more like herself though can not specifically articulate why. Patient said she had a good talk with her daughter which was helpful; also talked with the telling him she wants to separate which she said was a long time coming -seems that perphenazine is helping; will continue 07/10 Patient agitated on the unit today and yelling in the hallway. Compliance Nurse discussed this with patient who expresses concern about her being with her children. pt says she gave him bad news about their marriage and is worried about his mental state. She says he has had hallucinated/paranoid delusions about their son, a few years ago. Today, she can not say what he did or said that worried her...other than vague references to his composure...reactions...like he's not in touch with reality... But with no specifics...She agrees perhaps he could just be anxious... She also says she believes he has been unmedicated for a long time She then told her junior underwriter that Juan Miguel [son] talks in code to me, like I asked 'what are you wearing to school today...' and he said 'my pink Allan shirt tomorrow...' but he does not have a pink allan shirt, which means he's talking to me in code... She said this exchange happened the week prior to this admission and that he is talking in code her so his father will not know. Patient then showed junior underwriter a picture her son made which her brought in for her during this visit; she insisted him doing so was manipulative though junior underwriter could not understand why; patient showed junior underwriter a letter her wrote to her which was generally about how he is hoping for her and he wished to get help her. Patient says she thinks it is weird though junior underwriter could not understand why. After this encounter with her , she l called PD for wellness check on son; check was completed and PD informed her that her son is OK. She signed a 3 day notice 07/11 Patient refuse perphenazine, last night and this morning. Patient barely slept and staff reports she was pacing the wetzel throughout the night. On inquiry patient said that the afternoon dose was making her feel tired; regarding the bedtime dose, she said she just does not want to take this medication and wants to try something different in the same category. Compliance Nurse offered haloperidol with which she agreed. Impression: Patient remains with paranoid ideations and no insight into her own illness. She has some hypomanic behaviors; most of her problematic symptoms have been psychosis so have been focusing on antipsychotic however patient may benefit from traditional mood stabilizer; will continue to titrate Lamictal however this may not be adequate. Will hold Lexapro. -if patient willing will also consider increasing Seroquel at bedtime though concern is it would cause daytime sedation and she would refuse it. 07/12 little more organized, angry at her ; does not want Haldol, saying it makes her too sedated and agreed to Clozaril after reviewing risks/side effects -patient says she will retract her 3 day and stay a little longer 07/13 more odd behaviors today, wandering, sometimes hiding in hallway; other times social with peers. Pt witnessed self-dialouging in bedroom. Agrees to titration of clozapine. Agrees to remain on the unit longer for treatment -when patient takes perphenazine or Haldol, odd behaviors seemed to clear up; currently those have been discontinued and she is on low-dose of clozapine which is being titrated 07/14: Patient reports moderate anxiety. Denies depression. Denies paranoia. Denies SI/HI/AVH. Continue current treatment regimen. 07/15/25: Patient is not active engage in 1-1 assessment, walking the wetzel, asking this provider credential she is not legal . can you open the door? . Report to nurse that she find it helpful to distract her self by using headphone. Told nurse that she tries to have a good day. Appear sad, irritable, preoccupied and appear to be psychotic with mood swing, restless. Per nursing, patient slept for 5 hours, compliant with meds. Continue with current plan. 07/16/25: I am upset every morning and am upset now, but I don't want to talk about it. Team reports pt is upset about needing to be on the unit this weekend. Family meeting on 07/19. Pt allowed brief meeting with tw- discussed Clozapine increase by primary provider in preparation for discharge, she agrees and concurs. Team reports pt slept for ~6.5 hours. Described as anxious, guarded and labile Episodic yelling on the unit, after a telephone call with partner. Sat on the floor in the middle of the milieu, asking her primary RN to pick her up. Was able to get off the floor on her own and meet with junior underwriter briefly, however, declined to discuss what was bothering her. Denies SI,HI,AH,VH- I am just pissed, you know? No new medical/diagnostic results. Back pain relieved with Ibuprofen Plan: Clozapine to increase to 100 mg tonight per primary provider. 07/17/25: Meet with patient in exam room. Report that anxiety is very high this morning. Says that she does not want to take PRN but she took it and report feeling better. Report trying to use coping skills such as listening to music, doing some art work and talk to staff and try not to explode . Patient is visible, less irritable and more cooperative, not question regarding this provider's capacity and title. Denies SI/SIB/HI/AVH. Can be labile. No medication changes. Per nursing, slept for 6 hours, compliant with meds. Denies side effects. Continue with current treatment plan. 07/18/25: Patient slept for 6 hours, frustrated being here. Increased anxiety this morning and not happy with her . Patient is the wetzel appear to be suspicious at the end of the wetzel, restless. She denies safety concerns, overwhelmed with coming family meeting, restless. Patient was on the phone with her , got very angry and upset, she started being loud talking about her . Able to redirect to talk to this provider in Group room C. Report that her told her she is not allowed to go home if you talk to me that way . Patient reports that her is not reasonable, not wanting to do family counseling regarding their marriage. She called him to just to talk to him in advance to prepare for tomorrow family meeting but at the end getting triggered by Scott . Patient was tearful, sad and irritable talking about her Patient accepted Ativan 1mg x1 to calm her down with good effects. 07/19 Patient remains with psychotic symptoms and remains guarded. Bizarre movements in the milieu. Today however was the 1st time she shared that she does have auditory hallucinations and will here words that at the moment she thinks are in reference to her, but she will around and see no one talking... she has not quite open to reality testing. Patient continues to have paranoid ideations. She remains quite guarded and mostly says I am just waiting for to all come together when asked further about psychotic symptoms. Patient agrees to increasing clozapine. She reports that she is starting to feel quite depressed which she thinks his partly situational, missing her kids but also just a deeper regular depression and she mentions that she has been off her Wellbutrin and Vyvanse and Lexapro. Compliance Nurse discussed the reasons for this and the concern that restarting these too soon could exacerbate symptoms which she accepts and again agrees to increase clozapine; also agrees to continued Lamictal increase 07/20 Patient now back to mirroring various staff; continues with bizarre movements in hallway. Patient opened up a bit more about her thoughts. Regarding mirroring, she at 1st said it was a joke but then she acknowledged that it is not a joke... She shared that she thinks perhaps this admission is all a set up and that this is not a real hospital unit, that this junior underwriter is not a real doctor and that the staff are all involved in this set up.. She could not explain why such as set up would be occurring and somehow her mirroring Staff is a part of this life. Compliance Nurse attempted reality testing and patient was not opposed to it but says she is not sure if she believes that this junior underwriter is a real doctor or that this is a real hospital wings; regarding the unit, she says it looks different, it set a part... It is not new... It is not a part of the hospital. Patient agreed to consider that this police might just be her mind playing tricks on her and junior underwriter reassured her that all of this is in fact real and that she is being treated for in illness. She continues to report AH but remains vague about it. Impression: Patient remains psychotic with auditory hallucinations and paranoid ideations. While her behaviors themselves (internal preoccupation and self dialoguing; disorganized behaviors) and comments reveal the psychotic process, Up until now she has remained very guarded about sharing them. Patient has little insight, though she remains willing to remain on the unit continue with medication. Patient told junior underwriter she has has a diagnosis of bipolar disorder and was manic/hypomanic for a few months prior to worsening psychotic symptoms (lowering of mood stabilizer and increasing of Vyvanse seemed to be the trigger); she used to be on Seroquel (400-600mg) but found it too sedating and cause significant weight gain and does not want to get back on that medication. While Patient did have some manic behaviors earlier in admission, it seems that the psychotic symptoms are independent of both sukhdeep and depression as they have been ongoing in between in between mood episodes and so will continue with diagnosis of schizoaffective disorder, bipolar type (but leave it as provisional dx). Patients severe trauma history is certainly contributory to her anxiety and paranoia. Regarding patient's lack of insight, yesterday she called her 11-year-old son and told him the only reason she is in the hospital was because of his father which significantly upset the son. Currently Patient remains to paranoid about her to adequately discuss her own symptoms and why she ended up hospitalized (though she has some sense that she was getting dysregulated). Patient remains fragile and vulnerable to worsening psychosis or return of manic symptoms; she requires continued medication titration. She has significant paranoid ideations about her and has already lost full access to her children via DCF, and can now only see them when supervised; if she were to discharge now, her ongoing symptoms place her at high risk for further DCF intervention. Given her lack of insight, paranoid ideations towards her and paranoid belief that this admission is a set up... Patient is at high risk for unsafe behaviors in the community and requires continued inpatient stay for treatment. Regarding medication management, will continue to titrate clozapine since she is tolerating it and it is helpful for psychotic symptoms and bipolar disorder (both sukhdeep and bipolar depression). Would like to restart Wellbutrin for depression however will try to get AH under better control 1st; will hold off on Lexapro until mood stabilizing medications are at therapeutic doses so as not to trigger manic episode. Plan Three day notice q15 Increased to clozapine 150 mg q.h.s. continue Seroquel 100 at bedtime for sleep (perhaps can eventually get off this and just use clozapine). Increased Lamictal to 150 mg: Used to be on 200 and has been on 50 mg for months BuSpar 15 mg twice a day. HOLD Wellbutrin 300 mg daily: To avoid exacerbating psychotic symptoms HOLD Lexapro 10 mg daily since hypomanic behaviors HOLD Vyvanse DC perphenazine; patient did not want it, saying it made her sedated DC risperidone; patient does not like and patient is improved DC Haldol; said made too sedating P.R.N. Zyprexa 5mg q.4 hours p.r.n. for agitation/psychosis Patient educated on: diagnosis, medication risk/benefits and therapeutic strategies Informed Consent: understands, does not understand and further education needed Reason for continued inpatient stay Substantial Risk for: inability to function Time Spent With Patient Time: Total time managing care of this patient today ____ minutes.
[2025-07-20 20:00] VITALS: BP 137/82; PULSE 98; TEMP 37.1; O2SAT 100
[2025-07-21 07:57] VITALS: BP 113/65; PULSE 107; TEMP 36.5; O2SAT 100
--- NOTE | 2025-07-21 10:19 | P.PNPSI_ITS ---
Subjective Subjective Date of Service: 07/21/25 Reason For Visit: Recurrent major depression with psychosis Interim History: Met with patient; discussed with team Patient remains delusional and continues to not believe that she is in a real psychiatric unit and not sure that telegraphic typewriter installer is a real doctor. Continues to endorse have auditory hallucinations. Any further inquiry deflected Mental Status Exam Mental Status Exam Narrative: Pt is alert and oriented; behavior remains intermittently odd, making odd movements with her hands in the hallway, mirroring staffs movements; sometimes able to socialize, but often stands in the wetzel, peering around corner; self- dialoguing; can be guarded and superficial but is also cooperative and friendly on approach; patient is not in distress; dressed in casual attire with adequate grooming and hygiene; mood is described as good and affect remains intermittently furtive but overall brighter more calm; eye contact appropriate; Speech is normal rate, volume and prosody and not pressured; intermittent psychomotor agitation present; thought process a little more linear; Thought content is on paranoid ideations; denies any SI/HI. +AH and pt intermittently internally preoccupied. Patients insight and judgment impaired Diagnostics Vital Signs (24Hr): Vital Signs - 24 hr 07/20/25 20:00 07/21/25 07:57 Temperature 98.8 F 97.7 F Pulse Rate 98 107 H Blood Pressure 137/82 113/65 Pulse Oximetry 100 100 Oxygen Delivery Method Room Air Room Air BMI result Body Mass Index 20.8 Labs 06/30/25 07:49 06/30/25 07:49 Labs: Laboratory Results - last 48 hr 07/20/25 07:41 Absolute Neuts (auto) 5.9 Medications Medications Current Medications Acetaminophen (Acetaminophen 325 Mg Tablet) 650 mg PO Q6H PRN PRN Reason: Headache/Pain, Scale 1-10 Last Admin: 07/06/25 14:36 Dose: 650 mg Al Hydroxide/Mg Hydroxide (Magnesium Hydrox/Alum Hydrox 30 Ml Oral.Susp) 30 ml PO Q6H PRN PRN Reason: Heartburn/Nausea Buspirone HCl (Buspirone Hcl 5 Mg Tablet) 15 mg PO BID [facility] Last Admin: 07/21/25 09:58 Dose: 15 mg Clozapine (Clozapine 25 Mg Tablet) 150 mg PO BEDTIME [facility] Last Admin: 07/20/25 23:27 Dose: 150 mg Cyclobenzaprine HCl (Cyclobenzaprine Hcl 10 Mg Tablet) 10 mg PO TID PRN PRN Reason: Muscle Spasm Last Admin: 07/21/25 00:33 Dose: 10 mg Fluticasone Propionate (Fluticasone Propionate Nasal 16 Gm [place]) 1 spray NOSTRIL-B BID PRN PRN Reason: sinus congestion Hydroxyzine HCl (Hydroxyzine Hcl 25 Mg Tablet) 25 mg PO Q6H PRN PRN Reason: mild anxiety Last Admin: 07/21/25 09:58 Dose: 25 mg Ibuprofen (Ibuprofen 600 Mg Tablet) 600 mg PO Q6H PRN PRN Reason: Pain, Severe (Pain Scale 7-10) Last Admin: 07/20/25 09:45 Dose: 600 mg Lamotrigine (Lamotrigine 25 Mg Tablet) 150 mg PO BEDTIME [facility] Last Admin: 07/20/25 23:25 Dose: 150 mg Levothyroxine Sodium (Levothyroxine Sodium 75 Mcg Tablet) 75 mcg PO DAILY@0600 [facility] Last Admin: 07/21/25 07:15 Dose: 75 mcg Lidocaine HCl (Lidocaine 4 % Cream Kit) 1 appl TOPICAL ONCE PRN; Protocol PRN Reason: lower back pain Last Admin: 07/16/25 07:05 Dose: 1 appl Lorazepam (Lorazepam 0.5 Mg Tablet) 0.5 mg PO DAILY PRN PRN Reason: severe anxiety Last Admin: 07/20/25 09:45 Dose: 0.5 mg Magnesium Hydroxide (Milk Of Magnesia 30 Ml Oral.Susp) 30 ml PO DAILY PRN PRN Reason: Constipation Multivitamins/Vitamin C (Multivitamin Tablet) 1 tab PO DAILY [facility] Last Admin: 07/21/25 09:58 Dose: 1 tab Nicotine Polacrilex (Nicotine Polacrilex 2 Mg Gum) 4 mg BUCCAL Q2H PRN PRN Reason: Nicotine Cravings Prazosin HCl (Prazosin Hcl 1 Mg Capsule) 2 mg PO BEDTIME RATNA; Protocol Last Admin: 07/20/25 23:29 Dose: 2 mg Quetiapine Fumarate (Quetiapine Fumarate 100 Mg Tablet) 100 mg PO BEDTIME [facility] Last Admin: 07/20/25 23:26 Dose: 100 mg Risperidone (Risperidone 1 Mg Tablet) 1 mg PO DAILY PRN PRN Reason: disorganized behavior Trazodone HCl (Trazodone Hcl 50 Mg Tablet) 50 mg PO BEDTIME MRX1 PRN PRN Reason: Insomnia Allergies Allergies Allergy/AdvReac Type Severity Reaction Status Date / Time No Known Allergies Allergy Verified 06/24/25 17:49 Assessment & Plan Assessment & Plan (1) Schizoaffective disorder, bipolar type: Status: Acute Code(s): F25.0 - Schizoaffective disorder, bipolar type (2) Depression: Status: Acute Code(s): F32.A - Depression, unspecified (3) PTSD (post-traumatic stress disorder): Status: Acute Code(s): F43.10 - Post-traumatic stress disorder, unspecified Plan HPI: Pt is a 40 year old female who presented to the ED after being dropped off by a friend . Upon arrival to the ED she appeared increasingly paranoid and indicated that she was fearful she was being drugged by her and voiced concern for her and her children's safety. Pt stated that she wanted to have her medications checked as things are just off, my daily routine is off . Pt provided inconsistent information as evidence by conflicting information from what she disclosed to the ED provider upon arrival and at times appears to be a poor historian as a result of her current presentation. She remained guarded at this time and at times appeared to be minimizing symptoms as well as medication seeking as she remained primarily focused on her controlled substances that she is currently prescribed. It is to be noted. Formulation/clinical reasoning: Increasing psychotic behaviors, paranoid, disorganized thought process. Family members have safety concern regarding patient mental status at this current time. Even the above information, patient will be benefit in restrictive environment, medication management, and refer patient back to outpatient psychiatric services. Hospital course: 06/25/25: Continue with home medications. In my impression, patient may think that she just come here to get refill of her medication and will be sent home. However, other time she also stating that she has not come here for medication change as if she needs a refilled she can get it feel from her OP provider. Ativan 1 mg q.4 hours p.r.n. for severe anxiety. Home dose was only 0.5 b.i.d. p.r.n.. Stimulants: Continue with stimulants, we will monitor if it causing more psychotic behavior. Questioned if patient overused her Adderall information regarding recent weight lost, and be psychotic. 06/26/2025: Continue to encourage medication adherence and engagement. 06/27: accepting medications and requested prazosin 2mg be restarted 06/28 Patient is a limited historian due to disorganized speech and behavior. Throughout interview patient looking off in the distance, sometimes very latent responses, appearing to be internally preoccupied; frequently not finishing sentences, giving cryptic, vague and frequently unrelated responses to discussion questions. Payment Rep introduces himself has a doctor... Patient then asks are you a Dr.? I am not a doctor. I am Daphne... On inquiry about why patient came to the hospital, she replies, with speech latency and in broken sentences I came... I wanted medications reviewed... And wanted a toxicology... The unknown.... Things got a little unhinged... The court room... Domestic stuff. Patient goes on I was looking for my medications at my house... Interviews, talking, trying to survive all the time... The reality of things is unclear to me... Of the events. Payment Rep asks for clarification to which patient says, again after significant latency, the court house... I just want my [place] back... (she later clarifies that the [place] is a multi tool knife). Patient then started to refer to another patient, saying he wants a tape measure... I have one... I can hang out... There is time and things will be revealed... Whenever thing comes together... Family and judges and worldly stuff.. Payment Rep asks about her earlier concern that her is poisoning her... Patient remained silent for awhile and then says I checked my meds... When I went to talk to them... I would like to see the toxicology... My back was sweating.. I was questioning reality generally... There was a 911 call... She then told telegraphic typewriter installer she questioned the reality of this conversation but could not clarify further but then some something about getting her red ticket.. Regarding how she got to the hospital, patient said officers came to my house and talked to my kids...my daughter called them...since i was not feeling safe.....i know my very well...it just wasnt a good think going on...i wasn't...no...it got real.....im in survival mode...it started getting scary and dangerous...my was getting a little...red flaggs...it started to be an unsafe situation..he [] was not himself... Patient also said that her best friend Stephanie Holder dropped her off at the hospital; not clear how she got here. Patient gave telegraphic typewriter installer permission to talk to Stephanie and also to collect information from her . denies drugs or taking her prescribed medications in excess denies hx manic episodes; yes AH but nothing to be alarmed about... Nurse Note by Karon Arora RN 06/25/25 09:54 - This RN spoke to [facility] regarding the situation that led to being present here in the ER. Per [facility] employee, yesterday there was an argument between the patient and her where both her and her received a crisis consult. Per [facility] employee, patient was originally seen by [facility] crisis and it was determined she could go to respite, however, shortly after, crisis was called back to the home and the patient was sent here to the hospital. When the [facility] employee interviewed the pts 14 year old son, he reports that his mom has been acting really paranoid about things as of recently. (daughter 14yo, Son 11yo) 06/29 Patient remains with psychotic symptoms and said she thinks maybe he[] wants to kill or hurt me... Payment Rep inquired and patient kept coming back to the fact that he put her home medications in the wrong pill box compartments... and this is what made her think he is trying to kill her... Patient however was willing to entertain that perhaps this might not be true. However, she is significantly more organized today than she was yesterday, talking in full sentences sticking to the topic at hand. She agrees that yesterday she was feeling much more confused she is thinking more clearly today. Patient's father present who has been meeting with her daily since this admission and who agrees that she is significantly better and headed back towards her regular self. Patient agreed to sign a CV and also agreed to have Vyvanse and bupropion discontinued for now; she also agreed to take risperidone which telegraphic typewriter installer explained was hopefully just for few days. IMPRESSION: Patient demonstrating psychotic symptoms, auditory hallucinations, paranoid delusions and disorganized speech and behavior; patient is certainly internally preoccupied. So far collateral reports that patient has no history of psychosis or bipolar disorder. After gathering collateral from patient's and father, both deny any history of psychosis or sukhdeep were similar such episodes. Both speculate patient may have abused prescription medications including Vyvanse (and reports may have used crack cocaine) accounting for triggering this episode. Frequently substance induced psychosis resolves within 1-2 days (though can also persist for 2 or more weeks); however patient has remained on both Vyvanse and Wellbutrin which could prolonged symptoms (as both can increase dopamine). Will hold both Vyvanse and Wellbutrin. Also started risperidone low-dose to help with dopamine blockade. 06/30 Patient remains with paranoid ideation; refused Risperdal. On inquiry patient said she does not think she needs it but telegraphic typewriter installer continue to educate patient on medication and she said she would start taking it. Patient with some increase disorganized behaviors today, seen self-dialoguing and responding to internal stimuli at 1 point standing aimlessly in hallway, not moving. Slept only 4 hours -hopefully patient will start taking risperidone 07/01 patient remains with intermittent odd and disorganized behaviors, talking to herself in the wetzel; remains with paranoid ideations however is able to be more logical in conversation and for longer periods of time. Patient's sister visiting who gave history that patient started to a peer to be manic about 5 months ago which correlates to increased Vyvanse dose (hyperactive, rapid speech, little sleep-which patient concurred); patient's sister volunteered that she has schizoaffective disorder and has been on medication which was a surprise to patient but with this news was willing to take Risperdal 07/02 patient doing much better. Patient is more organized in both speech and behavior. Patient did take Risperdal twice yesterday but found it made her tired and did not want it anymore. However she agrees it may have been helpful. Patient for the 1st time able to talk much more logically and accurately about history and shares with telegraphic typewriter installer that she has been diagnosed with bipolar disorder in the past and was at 1 point on Seroquel around 400 mg and then stabilized on Lamictal 200 mg. Patient said that she had been doing well for so long that her current psychiatric provider agreed to start peeling away her medications and Seroquel was lowered to 100 mg Lamictal tapered down to 50 mg. This taper coincided with patient being started on stimulant medication for ADHD and her Vyvanse was titrated. Patient agrees that it is very possible that the tapering off of Lamictal (she may have been on only Lamictal and not Seroquel for quite awhile) the titration of a stimulant medication is what triggered manic episode which worsened over the past few weeks and included significant paranoid ideations. Patient agrees to get back on Lamictal which caused no side effects. -remains with paranoid ideations about her but they are less intense and patient more open to reality testing; of note patient's does have schizophrenia 07/05 patient continues to be improved, overall organized in speech and behavior able to discuss diagnosis and treatment appropriately 07/06Patient more disorganized doing bizarre, odd hand movements during interview. Patient mimicking/mirroring the hand gestures of whomever is talking; some echolalia as well. Patient remains very vague when discussing her thoughts. Continues to have some paranoid ideations about her however patient's sister does agree that patient's is excessively controlling and for the past 2 years, the sister has noticed that he dictates how long and with whom patient can spend time. Patient struggles to have insight into her behaviors including when they are pointed out in real-time. However she does agree to start perphenazine\ -had discussed risks/side effects of antipsychotics 07/07 Patient denies any medications side effects. Continues to have disorganized in behaviors and now hiding in the corners of the hallway throughout the milieu; continues to mirror movements of others with intermittent echolalia. Remains very vague on what he is thinking and keeps saying she is just waiting for it to all come together. 07/08 Patient Increasingly disorganized; standing in the corner for hours, peering around it into the milieu, not talking. Patient guarded on approach. Initially refused perphenazine but was willing to discuss it with telegraphic typewriter installer and patient said she does not feel like herself and hoped that the medication would help repair that. Patient agreed to increasing perphenazine to 4 mg t.i.d. -regarding diagnosis, patient has past diagnosis of bipolar disorder which reportedly was treated with Lamictal and before that Seroquel. Patient is not particularly manic but is definitely with psychotic symptoms. Will provisionally change diagnosis to schizoaffective disorder 07/09 little better today with increased dose of perphenazine which patient has been taking. She denies medication side effects and agrees that medications are helpful Still odd but less so and seems to be more organized. Still with limited insight but reports she is feeling better and more like herself though can not specifically articulate why. Patient said she had a good talk with her daughter which was helpful; also talked with the telling him she wants to separate which she said was a long time coming -seems that perphenazine is helping; will continue 07/10 Patient agitated on the unit today and yelling in the hallway. Payment Rep discussed this with patient who expresses concern about her being with her children. pt says she gave him bad news about their marriage and is worried about his mental state. She says he has had hallucinated/paranoid delusions about their son, a few years ago. Today, she can not say what he did or said that worried her...other than vague references to his composure...reactions...like he's not in touch with reality... But with no specifics...She agrees perhaps he could just be anxious... She also says she believes he has been unmedicated for a long time She then told her telegraphic typewriter installer that Juan Miguel [son] talks in code to me, like I asked 'what are you wearing to school today...' and he said 'my pink Allan shirt tomorrow...' but he does not have a pink allan shirt, which means he's talking to me in code... She said this exchange happened the week prior to this admission and that he is talking in code her so his father will not know. Patient then showed telegraphic typewriter installer a picture her son made which her brought in for her during this visit; she insisted him doing so was manipulative though telegraphic typewriter installer could not understand why; patient showed telegraphic typewriter installer a letter her wrote to her which was generally about how he is hoping for her and he wished to get help her. Patient says she thinks it is weird though telegraphic typewriter installer could not understand why. After this encounter with her , she l called PD for wellness check on son; check was completed and PD informed her that her son is OK. She signed a 3 day notice 07/11 Patient refuse perphenazine, last night and this morning. Patient barely slept and staff reports she was pacing the wetzel throughout the night. On inquiry patient said that the afternoon dose was making her feel tired; regarding the bedtime dose, she said she just does not want to take this medication and wants to try something different in the same category. Payment Rep offered haloperidol with which she agreed. Impression: Patient remains with paranoid ideations and no insight into her own illness. She has some hypomanic behaviors; most of her problematic symptoms have been psychosis so have been focusing on antipsychotic however patient may benefit from traditional mood stabilizer; will continue to titrate Lamictal however this may not be adequate. Will hold Lexapro. -if patient willing will also consider increasing Seroquel at bedtime though concern is it would cause daytime sedation and she would refuse it. 07/12 little more organized, angry at her ; does not want Haldol, saying it makes her too sedated and agreed to Clozaril after reviewing risks/side effects -patient says she will retract her 3 day and stay a little longer 07/13 more odd behaviors today, wandering, sometimes hiding in hallway; other times social with peers. Pt witnessed self-dialouging in bedroom. Agrees to titration of clozapine. Agrees to remain on the unit longer for treatment -when patient takes perphenazine or Haldol, odd behaviors seemed to clear up; currently those have been discontinued and she is on low-dose of clozapine which is being titrated 07/14: Patient reports moderate anxiety. Denies depression. Denies paranoia. Denies SI/HI/AVH. Continue current treatment regimen. 07/15/25: Patient is not active engage in 1-1 assessment, walking the wetzel, asking this provider credential she is not legal . can you open the door? . Report to nurse that she find it helpful to distract her self by using headphone. Told nurse that she tries to have a good day. Appear sad, irritable, preoccupied and appear to be psychotic with mood swing, restless. Per nursing, patient slept for 5 hours, compliant with meds. Continue with current plan. 07/16/25: I am upset every morning and am upset now, but I don't want to talk about it. Team reports pt is upset about needing to be on the unit this weekend. Family meeting on 07/19. Pt allowed brief meeting with tw- discussed Clozapine increase by primary provider in preparation for discharge, she agrees and concurs. Team reports pt slept for ~6.5 hours. Described as anxious, guarded and labile Episodic yelling on the unit, after a telephone call with partner. Sat on the floor in the middle of the milieu, asking her primary RN to pick her up. Was able to get off the floor on her own and meet with telegraphic typewriter installer briefly, however, declined to discuss what was bothering her. Denies SI,HI,AH,VH- I am just pissed, you know? No new medical/diagnostic results. Back pain relieved with Ibuprofen Plan: Clozapine to increase to 100 mg tonight per primary provider. 07/17/25: Meet with patient in exam room. Report that anxiety is very high this morning. Says that she does not want to take PRN but she took it and report feeling better. Report trying to use coping skills such as listening to music, doing some art work and talk to staff and try not to explode . Patient is visible, less irritable and more cooperative, not question regarding this provider's capacity and title. Denies SI/SIB/HI/AVH. Can be labile. No medication changes. Per nursing, slept for 6 hours, compliant with meds. Denies side effects. Continue with current treatment plan. 07/18/25: Patient slept for 6 hours, frustrated being here. Increased anxiety this morning and not happy with her . Patient is the wetzel appear to be suspicious at the end of the wetzel, restless. She denies safety concerns, overwhelmed with coming family meeting, restless. Patient was on the phone with her , got very angry and upset, she started being loud talking about her . Able to redirect to talk to this provider in Group room C. Report that her told her she is not allowed to go home if you talk to me that way . Patient reports that her is not reasonable, not wanting to do family counseling regarding their marriage. She called him to just to talk to him in advance to prepare for tomorrow family meeting but at the end getting triggered by Scott . Patient was tearful, sad and irritable talking about her Patient accepted Ativan 1mg x1 to calm her down with good effects. 07/19 Patient remains with psychotic symptoms and remains guarded. Bizarre movements in the milieu. Today however was the 1st time she shared that she does have auditory hallucinations and will here words that at the moment she thinks are in reference to her, but she will around and see no one talking... she has not quite open to reality testing. Patient continues to have paranoid ideations. She remains quite guarded and mostly says I am just waiting for to all come together when asked further about psychotic symptoms. Patient agrees to increasing clozapine. She reports that she is starting to feel quite depressed which she thinks his partly situational, missing her kids but also just a deeper regular depression and she mentions that she has been off her Wellbutrin and Vyvanse and Lexapro. Payment Rep discussed the reasons for this and the concern that restarting these too soon could exacerbate symptoms which she accepts and again agrees to increase clozapine; also agrees to continued Lamictal increase 07/20 Patient now back to mirroring various staff; continues with bizarre movements in hallway. Patient opened up a bit more about her thoughts. Regarding mirroring, she at 1st said it was a joke but then she acknowledged that it is not a joke... She shared that she thinks perhaps this admission is all a set up and that this is not a real hospital unit, that this telegraphic typewriter installer is not a real doctor and that the staff are all involved in this set up.. She could not explain why such as set up would be occurring and somehow her mirroring Staff is a part of this life. Payment Rep attempted reality testing and patient was not opposed to it but says she is not sure if she believes that this telegraphic typewriter installer is a real doctor or that this is a real hospital wings; regarding the unit, she says it looks different, it set a part... It is not new... It is not a part of the hospital. Patient agreed to consider that this police might just be her mind playing tricks on her and telegraphic typewriter installer reassured her that all of this is in fact real and that she is being treated for in illness. She continues to report AH but remains vague about it. 12/3 remains with paranoid ideations, AH; will continue titrating clozapine Impression: Patient remains psychotic with auditory hallucinations and paranoid ideations. While her behaviors themselves (internal preoccupation and self dialoguing; disorganized behaviors) and comments reveal the psychotic process, Up until now she has remained very guarded about sharing them. Patient has little insight, though she remains willing to remain on the unit continue with medication. Patient told telegraphic typewriter installer she has has a diagnosis of bipolar disorder and was manic/hypomanic for a few months prior to worsening psychotic symptoms (lowering of mood stabilizer and increasing of Vyvanse seemed to be the trigger); she used to be on Seroquel (400-600mg) but found it too sedating and cause significant weight gain and does not want to increase dose (using it for sleep only). While Patient did have some manic behaviors earlier in admission, it seems that the psychotic symptoms are independent of both sukhdeep and depression as they have been ongoing in between mood episodes and so will continue with diagnosis of schizoaffective disorder, bipolar type (but leave it as provisional dx). Patients severe trauma history is certainly contributory to her anxiety and paranoia. Regarding patient's lack of insight, yesterday she called her 11-year-old son and told him the only reason she is in the hospital was because of his father which significantly upset the son. Currently Patient remains too paranoid about her to adequately discuss her own symptoms and why she ended up hospitalized (though she has some sense that she was getting dysregulated). Patient remains fragile and she remain vulnerable to worsening psychosis or return of manic symptoms; she requires continued medication titration. She has significant paranoid ideations about her and has already lost full access to her children via DCF, and can now only see them when supervised; if she were to discharge now, her ongoing symptoms place her at high risk for further DCF intervention. Given her lack of insight, paranoid ideations towards her and paranoid belief that this admission is a set up Patient is at high risk for unsafe behaviors in the community and requires continued inpatient stay for treatment. Regarding medication management, will continue to titrate clozapine since she is tolerating it and it is helpful for both psychosis and bipolar disorder (including bipolar depression). Would like to restart Wellbutrin for depression however will try to get AH under better control 1st; will hold off on Lexapro until mood stabilizing medications are at therapeutic doses so as not to trigger manic episode. Plan Three day notice q15 Increased to clozapine 150 mg q.h.s. continue Seroquel 100 at bedtime for sleep (perhaps can eventually get off this and just use clozapine). Increased Lamictal to 150 mg: Used to be on 200 and has been on 50 mg for months BuSpar 15 mg twice a day. HOLD Wellbutrin 300 mg daily: To avoid exacerbating psychotic symptoms HOLD Lexapro 10 mg daily since hypomanic behaviors HOLD Vyvanse DC perphenazine; patient did not want it, saying it made her sedated DC risperidone; patient does not like and patient is improved DC Haldol; said made too sedating P.R.N. Zyprexa 5mg q.4 hours p.r.n. for agitation/psychosis Patient educated on: diagnosis and medication risk/benefits Informed Consent: understands, does not understand and further education needed Reason for continued inpatient stay Substantial Risk for: inability to function Time Spent With Patient Time: Total time managing care of this patient today ____ minutes.
[2025-07-21 20:00] VITALS: BP 111/72; PULSE 95; RESP 16; TEMP 36.8; O2SAT 98
[2025-07-22 07:00] VITALS: BMI 23.0
[2025-07-22 08:00] VITALS: BP 124/57; PULSE 100; RESP 14; TEMP 36.9; O2SAT 98
--- NOTE | 2025-07-22 12:40 | P.PNPSI_ITS ---
Subjective Subjective Date of Service: 07/22/25 Reason For Visit: Recurrent major depression with psychosis Interim History: Met with patient; discussed with team Patient remains with paranoid ideations and told process description writer today that she is fully convinced that she is here on the unit as the focal point of a conspiracy with staff and pretend patients all in on it playing a game at her expense. She said she is feeling tired of playing the game and she just not going to right now. Forestry Pilot asked for an example and she said that there was water on the floor which she had to walk around and not get emotionally dysregulated; she explained that the water was purposely but there to test her. Forestry Pilot continued to provide education to the contrary that she is being psychiatrically treated on a true psychiatric unit. It is difficult to tell if patient has some insight in that she needs treatment and medication or if she is accepting treatment/medication as part of playing the game... At any rate she agrees to increase Clozaril. She said she is feeling tired in the morning and so process description writer agreed to try and see if she could tolerate restarting Wellbutrin. Mental Status Exam Mental Status Exam Narrative: Pt is alert and oriented; behavior remains intermittently odd, making odd movements with her hands in the hallway, intermittently mirroring staffs movements; also able to socialize, but often stands in the wetzel, peering around corner; self-dialoguing; remains guarded and superficial but is also cooperative and friendly on approach; patient is not in distress; dressed in casual attire with adequate grooming and hygiene; mood is described as I am tired of playing the game and affect varies from being constricted, too anxious to furtive and sometimes smiling and bright; eye contact appropriate; Speech is normal rate, volume and prosody and not pressured; intermittent psychomotor agitation present; thought process a little more linear; Thought content is on paranoid ideations; denies any SI/HI. +AH and pt intermittently internally preoccupied. Patients insight and judgment impaired Diagnostics Vital Signs (24Hr): Vital Signs - 24 hr 07/21/25 20:00 07/22/25 08:00 Temperature 98.2 F 98.4 F Pulse Rate 95 100 Respiratory Rate 16 14 Blood Pressure 111/72 124/57 L Pulse Oximetry 98 98 Oxygen Delivery Method Room Air Room Air BMI result Body Mass Index 23.0 Labs 06/30/25 07:49 06/30/25 07:49 Medications Medications Current Medications Acetaminophen (Acetaminophen 325 Mg Tablet) 650 mg PO Q6H PRN PRN Reason: Headache/Pain, Scale 1-10 Last Admin: 07/06/25 14:36 Dose: 650 mg Al Hydroxide/Mg Hydroxide (Magnesium Hydrox/Alum Hydrox 30 Ml Oral.Susp) 30 ml PO Q6H PRN PRN Reason: Heartburn/Nausea Buspirone HCl (Buspirone Hcl 5 Mg Tablet) 15 mg PO BID [facility] Last Admin: 07/22/25 08:27 Dose: 15 mg Clozapine (Clozapine 25 Mg Tablet) 175 mg PO BEDTIME [facility] Cyclobenzaprine HCl (Cyclobenzaprine Hcl 10 Mg Tablet) 10 mg PO TID PRN PRN Reason: Muscle Spasm Last Admin: 07/21/25 00:33 Dose: 10 mg Fluticasone Propionate (Fluticasone Propionate Nasal 16 Gm [place]) 1 spray NOSTRIL-B BID PRN PRN Reason: sinus congestion Last Admin: 07/21/25 15:57 Dose: 1 spray Hydroxyzine HCl (Hydroxyzine Hcl 25 Mg Tablet) 25 mg PO Q6H PRN PRN Reason: mild anxiety Last Admin: 07/21/25 23:30 Dose: 25 mg Ibuprofen (Ibuprofen 600 Mg Tablet) 600 mg PO Q6H PRN PRN Reason: Pain, Severe (Pain Scale 7-10) Last Admin: 07/21/25 23:31 Dose: 600 mg Lamotrigine (Lamotrigine 25 Mg Tablet) 150 mg PO BEDTIME [facility] Last Admin: 07/21/25 23:36 Dose: 150 mg Levothyroxine Sodium (Levothyroxine Sodium 75 Mcg Tablet) 75 mcg PO DAILY@0600 [facility] Last Admin: 07/22/25 06:54 Dose: 75 mcg Lidocaine HCl (Lidocaine 4 % Cream Kit) 1 appl TOPICAL ONCE PRN; Protocol PRN Reason: lower back pain Last Admin: 07/16/25 07:05 Dose: 1 appl Lorazepam (Lorazepam 0.5 Mg Tablet) 0.5 mg PO DAILY PRN PRN Reason: severe anxiety Last Admin: 07/22/25 08:27 Dose: 0.5 mg Magnesium Hydroxide (Milk Of Magnesia 30 Ml Oral.Susp) 30 ml PO DAILY PRN PRN Reason: Constipation Multivitamins/Vitamin C (Multivitamin Tablet) 1 tab PO DAILY RATNA Last Admin: 07/22/25 08:28 Dose: 1 tab Nicotine Polacrilex (Nicotine Polacrilex 2 Mg Gum) 4 mg BUCCAL Q2H PRN PRN Reason: Nicotine Cravings Prazosin HCl (Prazosin Hcl 1 Mg Capsule) 2 mg PO BEDTIME RATNA; Protocol Last Admin: 07/21/25 23:33 Dose: 2 mg Quetiapine Fumarate (Quetiapine Fumarate 100 Mg Tablet) 100 mg PO BEDTIME RATNA Last Admin: 07/21/25 23:31 Dose: 100 mg Risperidone (Risperidone 1 Mg Tablet) 1 mg PO DAILY PRN PRN Reason: disorganized behavior Trazodone HCl (Trazodone Hcl 50 Mg Tablet) 50 mg PO BEDTIME MRX1 PRN PRN Reason: Insomnia Allergies Allergies Allergy/AdvReac Type Severity Reaction Status Date / Time No Known Allergies Allergy Verified 06/24/25 17:49 Assessment & Plan Assessment & Plan (1) Schizoaffective disorder, bipolar type: Status: Acute Code(s): F25.0 - Schizoaffective disorder, bipolar type (2) Depression: Status: Acute Code(s): F32.A - Depression, unspecified (3) PTSD (post-traumatic stress disorder): Status: Acute Code(s): F43.10 - Post-traumatic stress disorder, unspecified Plan HPI: Pt is a 40 year old female who presented to the ED after being dropped off by a friend . Upon arrival to the ED she appeared increasingly paranoid and indicated that she was fearful she was being drugged by her and voiced concern for her and her children's safety. Pt stated that she wanted to have her medications checked as things are just off, my daily routine is off . Pt provided inconsistent information as evidence by conflicting information from what she disclosed to the ED provider upon arrival and at times appears to be a poor historian as a result of her current presentation. She remained guarded at this time and at times appeared to be minimizing symptoms as well as medication seeking as she remained primarily focused on her controlled substances that she is currently prescribed. It is to be noted. Formulation/clinical reasoning: Increasing psychotic behaviors, paranoid, disorganized thought process. Family members have safety concern regarding patient mental status at this current time. Even the above information, patient will be benefit in restrictive environment, medication management, and refer patient back to outpatient psychiatric services. Hospital course: 06/25/25: Continue with home medications. In my impression, patient may think that she just come here to get refill of her medication and will be sent home. However, other time she also stating that she has not come here for medication change as if she needs a refilled she can get it feel from her OP provider. Ativan 1 mg q.4 hours p.r.n. for severe anxiety. Home dose was only 0.5 b.i.d. p.r.n.. Stimulants: Continue with stimulants, we will monitor if it causing more psychotic behavior. Questioned if patient overused her Adderall information regarding recent weight lost, and be psychotic. 06/26/2025: Continue to encourage medication adherence and engagement. 06/27: accepting medications and requested prazosin 2mg be restarted 06/28 Patient is a limited historian due to disorganized speech and behavior. Throughout interview patient looking off in the distance, sometimes very latent responses, appearing to be internally preoccupied; frequently not finishing sentences, giving cryptic, vague and frequently unrelated responses to discussion questions. Forestry Pilot introduces himself has a doctor... Patient then asks are you a Dr.? I am not a doctor. I am Daphne... On inquiry about why patient came to the hospital, she replies, with speech latency and in broken sentences I came... I wanted medications reviewed... And wanted a toxicology... The unknown.... Things got a little unhinged... The court room... Domestic stuff. Patient goes on I was looking for my medications at my house... Interviews, talking, trying to survive all the time... The reality of things is unclear to me... Of the events. Forestry Pilot asks for clarification to which patient says, again after significant latency, the court house... I just want my Quapaw back... (she later clarifies that the Quapaw is a multi tool knife). Patient then started to refer to another patient, saying he wants a tape measure... I have one... I can hang out... There is time and things will be revealed... Whenever thing comes together... Family and judges and worldly stuff.. Forestry Pilot asks about her earlier concern that her is poisoning her... Patient remained silent for awhile and then says I checked my meds... When I went to talk to them... I would like to see the toxicology... My back was sweating.. I was questioning reality generally... There was a 911 call... She then told process description writer she questioned the reality of this conversation but could not clarify further but then some something about getting her red ticket.. Regarding how she got to the hospital, patient said officers came to my house and talked to my kids...my daughter called them...since i was not feeling safe.....i know my very well...it just wasnt a good think going on...i wasn't...no...it got real.....im in survival mode...it started getting scary and dangerous...my was getting a little...red flaggs...it started to be an unsafe situation..he [] was not himself... Patient also said that her best friend Stephanie Holder dropped her off at the hospital; not clear how she got here. Patient gave process description writer permission to talk to Stephanie and also to collect information from her . denies drugs or taking her prescribed medications in excess denies hx manic episodes; yes AH but nothing to be alarmed about... Nurse Note by Karon Arora RN 06/25/25 09:54 - This RN spoke to [facility] regarding the situation that led to being present here in the ER. Per [facility] employee, yesterday there was an argument between the patient and her where both her and her received a crisis consult. Per [facility] employee, patient was originally seen by [facility] crisis and it was determined she could go to respite, however, shortly after, crisis was called back to the home and the patient was sent here to the hospital. When the [facility] employee interviewed the pts 14 year old son, he reports that his mom has been acting really paranoid about things as of recently. (daughter 14yo, Son 11yo) 06/29 Patient remains with psychotic symptoms and said she thinks maybe he[] wants to kill or hurt me... Forestry Pilot inquired and patient kept coming back to the fact that he put her home medications in the wrong pill box compartments... and this is what made her think he is trying to kill her... Patient however was willing to entertain that perhaps this might not be true. However, she is significantly more organized today than she was yesterday, talking in full sentences sticking to the topic at hand. She agrees that yesterday she was feeling much more confused she is thinking more clearly today. Patient's father present who has been meeting with her daily since this admission and who agrees that she is significantly better and headed back towards her regular self. Patient agreed to sign a CV and also agreed to have Vyvanse and bupropion discontinued for now; she also agreed to take risperidone which process description writer explained was hopefully just for few days. IMPRESSION: Patient demonstrating psychotic symptoms, auditory hallucinations, paranoid delusions and disorganized speech and behavior; patient is certainly internally preoccupied. So far collateral reports that patient has no history of psychosis or bipolar disorder. After gathering collateral from patient's and father, both deny any history of psychosis or sukhdeep were similar such episodes. Both speculate patient may have abused prescription medications including Vyvanse (and reports may have used crack cocaine) accounting for triggering this episode. Frequently substance induced psychosis resolves within 1-2 days (though can also persist for 2 or more weeks); however patient has remained on both Vyvanse and Wellbutrin which could prolonged symptoms (as both can increase dopamine). Will hold both Vyvanse and Wellbutrin. Also started risperidone low-dose to help with dopamine blockade. 06/30 Patient remains with paranoid ideation; refused Risperdal. On inquiry patient said she does not think she needs it but process description writer continue to educate patient on medication and she said she would start taking it. Patient with some increase disorganized behaviors today, seen self-dialoguing and responding to internal stimuli at 1 point standing aimlessly in hallway, not moving. Slept only 4 hours -hopefully patient will start taking risperidone 07/01 patient remains with intermittent odd and disorganized behaviors, talking to herself in the wetzel; remains with paranoid ideations however is able to be more logical in conversation and for longer periods of time. Patient's sister visiting who gave history that patient started to a peer to be manic about 5 months ago which correlates to increased Vyvanse dose (hyperactive, rapid speech, little sleep-which patient concurred); patient's sister volunteered that she has schizoaffective disorder and has been on medication which was a surprise to patient but with this news was willing to take Risperdal 07/02 patient doing much better. Patient is more organized in both speech and behavior. Patient did take Risperdal twice yesterday but found it made her tired and did not want it anymore. However she agrees it may have been helpful. Patient for the 1st time able to talk much more logically and accurately about history and shares with process description writer that she has been diagnosed with bipolar disorder in the past and was at 1 point on Seroquel around 400 mg and then stabilized on Lamictal 200 mg. Patient said that she had been doing well for so long that her current psychiatric provider agreed to start peeling away her medications and Seroquel was lowered to 100 mg Lamictal tapered down to 50 mg. This taper coincided with patient being started on stimulant medication for ADHD and her Vyvanse was titrated. Patient agrees that it is very possible that the tapering off of Lamictal (she may have been on only Lamictal and not Seroquel for quite awhile) the titration of a stimulant medication is what triggered manic episode which worsened over the past few weeks and included significant paranoid ideations. Patient agrees to get back on Lamictal which caused no side effects. -remains with paranoid ideations about her but they are less intense and patient more open to reality testing; of note patient's does have schizophrenia 07/05 patient continues to be improved, overall organized in speech and behavior able to discuss diagnosis and treatment appropriately 07/06Patient more disorganized doing bizarre, odd hand movements during interview. Patient mimicking/mirroring the hand gestures of whomever is talking; some echolalia as well. Patient remains very vague when discussing her thoughts. Continues to have some paranoid ideations about her however patient's sister does agree that patient's is excessively controlling and for the past 2 years, the sister has noticed that he dictates how long and with whom patient can spend time. Patient struggles to have insight into her behaviors including when they are pointed out in real-time. However she does agree to start perphenazine\ -had discussed risks/side effects of antipsychotics 07/07 Patient denies any medications side effects. Continues to have disorganized in behaviors and now hiding in the corners of the hallway throughout the milieu; continues to mirror movements of others with intermittent echolalia. Remains very vague on what he is thinking and keeps saying she is just waiting for it to all come together. 07/08 Patient Increasingly disorganized; standing in the corner for hours, peering around it into the milieu, not talking. Patient guarded on approach. Initially refused perphenazine but was willing to discuss it with process description writer and patient said she does not feel like herself and hoped that the medication would help repair that. Patient agreed to increasing perphenazine to 4 mg t.i.d. -regarding diagnosis, patient has past diagnosis of bipolar disorder which reportedly was treated with Lamictal and before that Seroquel. Patient is not particularly manic but is definitely with psychotic symptoms. Will provisionally change diagnosis to schizoaffective disorder 07/09 little better today with increased dose of perphenazine which patient has been taking. She denies medication side effects and agrees that medications are helpful Still odd but less so and seems to be more organized. Still with limited insight but reports she is feeling better and more like herself though can not specifically articulate why. Patient said she had a good talk with her daughter which was helpful; also talked with the telling him she wants to separate which she said was a long time coming -seems that perphenazine is helping; will continue 07/10 Patient agitated on the unit today and yelling in the hallway. Forestry Pilot discussed this with patient who expresses concern about her being with her children. pt says she gave him bad news about their marriage and is worried about his mental state. She says he has had hallucinated/paranoid delusions about their son, a few years ago. Today, she can not say what he did or said that worried her...other than vague references to his composure...reactions...like he's not in touch with reality... But with no specifics...She agrees perhaps he could just be anxious... She also says she believes he has been unmedicated for a long time She then told her process description writer that Juan Miguel [son] talks in code to me, like I asked 'what are you wearing to school today...' and he said 'my pink Allan shirt tomorrow...' but he does not have a pink allan shirt, which means he's talking to me in code... She said this exchange happened the week prior to this admission and that he is talking in code her so his father will not know. Patient then showed process description writer a picture her son made which her brought in for her during this visit; she insisted him doing so was manipulative though process description writer could not understand why; patient showed process description writer a letter her wrote to her which was generally about how he is hoping for her and he wished to get help her. Patient says she thinks it is weird though process description writer could not understand why. After this encounter with her , she l called PD for wellness check on son; check was completed and PD informed her that her son is OK. She signed a 3 day notice 07/11 Patient refuse perphenazine, last night and this morning. Patient barely slept and staff reports she was pacing the wetzel throughout the night. On inquiry patient said that the afternoon dose was making her feel tired; regarding the bedtime dose, she said she just does not want to take this medication and wants to try something different in the same category. Forestry Pilot offered haloperidol with which she agreed. Impression: Patient remains with paranoid ideations and no insight into her own illness. She has some hypomanic behaviors; most of her problematic symptoms have been psychosis so have been focusing on antipsychotic however patient may benefit from traditional mood stabilizer; will continue to titrate Lamictal however this may not be adequate. Will hold Lexapro. -if patient willing will also consider increasing Seroquel at bedtime though concern is it would cause daytime sedation and she would refuse it. 07/12 little more organized, angry at her ; does not want Haldol, saying it makes her too sedated and agreed to Clozaril after reviewing risks/side effects -patient says she will retract her 3 day and stay a little longer 07/13 more odd behaviors today, wandering, sometimes hiding in hallway; other times social with peers. Pt witnessed self-dialouging in bedroom. Agrees to titration of clozapine. Agrees to remain on the unit longer for treatment -when patient takes perphenazine or Haldol, odd behaviors seemed to clear up; currently those have been discontinued and she is on low-dose of clozapine which is being titrated 07/14: Patient reports moderate anxiety. Denies depression. Denies paranoia. Denies SI/HI/AVH. Continue current treatment regimen. 07/15/25: Patient is not active engage in 1-1 assessment, walking the wetzel, asking this provider credential she is not legal . can you open the door? . Report to nurse that she find it helpful to distract her self by using headphone. Told nurse that she tries to have a good day. Appear sad, irritable, preoccupied and appear to be psychotic with mood swing, restless. Per nursing, patient slept for 5 hours, compliant with meds. Continue with current plan. 07/16/25: I am upset every morning and am upset now, but I don't want to talk about it. Team reports pt is upset about needing to be on the unit this weekend. Family meeting on 07/19. Pt allowed brief meeting with tw- discussed Clozapine increase by primary provider in preparation for discharge, she agrees and concurs. Team reports pt slept for ~6.5 hours. Described as anxious, guarded and labile Episodic yelling on the unit, after a telephone call with partner. Sat on the floor in the middle of the milieu, asking her primary RN to pick her up. Was able to get off the floor on her own and meet with process description writer briefly, however, declined to discuss what was bothering her. Denies SI,HI,AH,VH- I am just pissed, you know? No new medical/diagnostic results. Back pain relieved with Ibuprofen Plan: Clozapine to increase to 100 mg tonight per primary provider. 07/17/25: Meet with patient in exam room. Report that anxiety is very high this morning. Says that she does not want to take PRN but she took it and report feeling better. Report trying to use coping skills such as listening to music, doing some art work and talk to staff and try not to explode . Patient is visible, less irritable and more cooperative, not question regarding this provider's capacity and title. Denies SI/SIB/HI/AVH. Can be labile. No medication changes. Per nursing, slept for 6 hours, compliant with meds. Denies side effects. Continue with current treatment plan. 07/18/25: Patient slept for 6 hours, frustrated being here. Increased anxiety this morning and not happy with her . Patient is the wetzel appear to be suspicious at the end of the wetzel, restless. She denies safety concerns, overwhelmed with coming family meeting, restless. Patient was on the phone with her , got very angry and upset, she started being loud talking about her . Able to redirect to talk to this provider in Group room C. Report that her told her she is not allowed to go home if you talk to me that way . Patient reports that her is not reasonable, not wanting to do family counseling regarding their marriage. She called him to just to talk to him in advance to prepare for tomorrow family meeting but at the end getting triggered by Scott . Patient was tearful, sad and irritable talking about her Patient accepted Ativan 1mg x1 to calm her down with good effects. 07/19 Patient remains with psychotic symptoms and remains guarded. Bizarre movements in the milieu. Today however was the 1st time she shared that she does have auditory hallucinations and will here words that at the moment she thinks are in reference to her, but she will around and see no one talking... she has not quite open to reality testing. Patient continues to have paranoid ideations. She remains quite guarded and mostly says I am just waiting for to all come together when asked further about psychotic symptoms. Patient agrees to increasing clozapine. She reports that she is starting to feel quite depressed which she thinks his partly situational, missing her kids but also just a deeper regular depression and she mentions that she has been off her Wellbutrin and Vyvanse and Lexapro. Forestry Pilot discussed the reasons for this and the concern that restarting these too soon could exacerbate symptoms which she accepts and again agrees to increase clozapine; also agrees to continued Lamictal increase 07/20 Patient now back to mirroring various staff; continues with bizarre movements in hallway. Patient opened up a bit more about her thoughts. Regarding mirroring, she at 1st said it was a joke but then she acknowledged that it is not a joke... She shared that she thinks perhaps this admission is all a set up and that this is not a real hospital unit, that this process description writer is not a real doctor and that the staff are all involved in this set up.. She could not explain why such as set up would be occurring and somehow her mirroring Staff is a part of this life. Forestry Pilot attempted reality testing and patient was not opposed to it but says she is not sure if she believes that this process description writer is a real doctor or that this is a real hospital wings; regarding the unit, she says it looks different, it set a part... It is not new... It is not a part of the hospital. Patient agreed to consider that this police might just be her mind playing tricks on her and process description writer reassured her that all of this is in fact real and that she is being treated for in illness. She continues to report AH but remains vague about it. / remains with paranoid ideations, AH; will continue titrating clozapine Impression: Patient remains psychotic with auditory hallucinations and paranoid ideations. While her behaviors themselves (internal preoccupation and self dialoguing; disorganized behaviors) and comments reveal the psychotic process, Up until now she has remained very guarded about sharing them. Patient has little insight, though she remains willing to remain on the unit continue with medication. Patient told process description writer she has has a diagnosis of bipolar disorder and was manic/hypomanic for a few months prior to worsening psychotic symptoms (lowering of mood stabilizer and increasing of Vyvanse seemed to be the trigger); she used to be on Seroquel (400-600mg) but found it too sedating and cause significant weight gain and does not want to increase dose (using it for sleep only). While Patient did have some manic behaviors earlier in admission, it seems that the psychotic symptoms are independent of both sukhdeep and depression as they have been ongoing in between mood episodes and so will continue with diagnosis of schizoaffective disorder, bipolar type (but leave it as provisional dx). Patients severe trauma history is certainly contributory to her anxiety and paranoia. Regarding patient's lack of insight, yesterday she called her 11-year-old son and told him the only reason she is in the hospital was because of his father which significantly upset the son. Currently Patient remains too paranoid about her to adequately discuss her own symptoms and why she ended up hospitalized (though she has some sense that she was getting dysregulated). Patient remains fragile and she remain vulnerable to worsening psychosis or return of manic symptoms; she requires continued medication titration. She has significant paranoid ideations about her and has already lost full access to her children via DCF, and can now only see them when supervised; if she were to discharge now, her ongoing symptoms place her at high risk for further DCF intervention. Given her lack of insight, paranoid ideations towards her and paranoid belief that this admission is a set up Patient is at high risk for unsafe behaviors in the community and requires continued inpatient stay for treatment. Regarding medication management, will continue to titrate clozapine since she is tolerating it and it is helpful for both psychosis and bipolar disorder (including bipolar depression). Would like to restart Wellbutrin for depression however will try to get AH under better control 1st; will hold off on Lexapro until mood stabilizing medications are at therapeutic doses so as not to trigger manic episode. 07/22 Patient remains with paranoid ideations and told process description writer today that she is fully convinced that she is here on the unit as the focal point of a conspiracy with staff and pretend patients all in on it playing a game at her expense. She said she is feeling tired of playing the game and she just not going to right now. Forestry Pilot asked for an example and she said that there was water on the floor which she had to walk around and not get emotionally dysregulated; she explained that the water was purposely but there to test her. Forestry Pilot continued to provide education to the contrary that she is being psychiatrically treated on a true psychiatric unit. It is difficult to tell if patient has some insight in that she needs treatment and medication or if she is accepting treatment/medication as part of playing the game... At any rate she agrees to increase Clozaril. She said she is feeling tired in the morning and so process description writer agreed to try and see if she could tolerate restarting Wellbutrin. -patient expressing depressed feelings and feeling tired in the morning which make sense as she is off both Wellbutrin and Vyvanse; will restart Wellbutrin to help with daytime tiredness and depression at the risk of exacerbating psychotic symptoms. Starting at a low-dose is minimal risk and process description writer considers it worth restarting this medication to avoid patient becoming disinterested in clozapine -retracted 3 day notice Plan cv q15 Increased to clozapine 175 mg q.h.s. continue Seroquel 100 at bedtime for sleep (perhaps can eventually get off this and just use clozapine). Increased Lamictal to 150 mg: Used to be on 200 and has been on 50 mg for months BuSpar 15 mg twice a day. HOLD Wellbutrin 300 mg daily: To avoid exacerbating psychotic symptoms HOLD Lexapro 10 mg daily since hypomanic behaviors HOLD Vyvanse DC perphenazine; patient did not want it, saying it made her sedated DC risperidone; patient does not like and patient is improved DC Haldol; said made too sedating P.R.N. Zyprexa 5mg q.4 hours p.r.n. for agitation/psychosis Patient educated on: diagnosis, medication risk/benefits and therapeutic strategies Informed Consent: understands, does not understand and further education needed Reason for continued inpatient stay Substantial Risk for: inability to function Time Spent With Patient Time: Total time managing care of this patient today ____ minutes.
[2025-07-22 20:00] VITALS: BP 116/82; PULSE 96; TEMP 36.2; O2SAT 100
[2025-07-23 08:00] VITALS: BP 131/84; PULSE 100; RESP 16; TEMP 36.6; O2SAT 100
[2025-07-23] MEDS: buPROPion HCl XL 150 MG TAB.ER.24H PO (12:53)
--- NOTE | 2025-07-23 14:56 | HO.PSYCHPN ---
Subjective Subjective Date of Service: 07/23/25 Reason For Visit: Recurrent major depression with psychosis Interim History: Met with patient; discussed with team No change in presentation; patient remains self dialouging. Patient continues to believe the people on the unit are actors part of a set up scheme, pretending to be a psychiatric unit. Patient pointed out different staff that she is unable to tell if they are part of the scheme or not Mental Status Exam Mental Status Exam Narrative: Pt is alert and oriented; behavior remains intermittently odd, making odd movements with her hands in the hallway, intermittently mirroring staffs movements; also able to socialize, but often stands in the wetzel, peering around corner; self-dialoguing; remains guarded and superficial but is also cooperative and friendly on approach; patient is not in distress; dressed in casual attire with adequate grooming and hygiene; mood is described as I am tired of playing the game and affect varies from being constricted, too anxious to furtive and sometimes smiling and bright; eye contact appropriate; Speech is normal rate, volume and prosody and not pressured; intermittent psychomotor agitation present; thought process a little more linear; Thought content is on paranoid ideations; denies any SI/HI. +AH and pt intermittently internally preoccupied. Patients insight and judgment impaired Diagnostics Vital Signs (24Hr): Vital Signs - 24 hr 07/22/25 20:00 07/23/25 08:00 Temperature 97.2 F 97.9 F Pulse Rate 96 100 Respiratory Rate 16 Blood Pressure 116/82 131/84 Pulse Oximetry 100 100 Oxygen Delivery Method Room Air Room Air BMI result Body Mass Index 23.0 Labs 06/30/25 07:49 06/30/25 07:49 Medications Medications Current Medications Acetaminophen (Acetaminophen 325 Mg Tablet) 650 mg PO Q6H PRN PRN Reason: Headache/Pain, Scale 1-10 Last Admin: 07/06/25 14:36 Dose: 650 mg Al Hydroxide/Mg Hydroxide (Magnesium Hydrox/Alum Hydrox 30 Ml Oral.Susp) 30 ml PO Q6H PRN PRN Reason: Heartburn/Nausea Bupropion HCl (Bupropion Hcl Xl 150 Mg Tab.Er.24h) 150 mg PO DAILY [facility] Last Admin: 07/23/25 12:53 Dose: 150 mg Buspirone HCl (Buspirone Hcl 5 Mg Tablet) 15 mg PO BID [facility] Last Admin: 07/23/25 09:53 Dose: 15 mg Clozapine (Clozapine 100 Mg Tablet) 200 mg PO BEDTIME RATNA Cyclobenzaprine HCl (Cyclobenzaprine Hcl 10 Mg Tablet) 10 mg PO TID PRN PRN Reason: Muscle Spasm Last Admin: 07/21/25 00:33 Dose: 10 mg Fluticasone Propionate (Fluticasone Propionate Nasal 16 Gm Hammond) 1 spray NOSTRIL-B BID PRN PRN Reason: sinus congestion Last Admin: 07/21/25 15:57 Dose: 1 spray Hydroxyzine HCl (Hydroxyzine Hcl 25 Mg Tablet) 25 mg PO Q6H PRN PRN Reason: mild anxiety Last Admin: 07/21/25 23:30 Dose: 25 mg Ibuprofen (Ibuprofen 600 Mg Tablet) 600 mg PO Q6H PRN PRN Reason: Pain, Severe (Pain Scale 7-10) Last Admin: 07/22/25 13:40 Dose: 600 mg Lamotrigine (Lamotrigine 25 Mg Tablet) 150 mg PO BEDTIME RATNA Last Admin: 07/22/25 23:30 Dose: 150 mg Levothyroxine Sodium (Levothyroxine Sodium 75 Mcg Tablet) 75 mcg PO DAILY@0600 RATNA Last Admin: 07/23/25 07:01 Dose: 75 mcg Lidocaine HCl (Lidocaine 4 % Cream Kit) 1 appl TOPICAL ONCE PRN; Protocol PRN Reason: lower back pain Last Admin: 07/16/25 07:05 Dose: 1 appl Lorazepam (Lorazepam 0.5 Mg Tablet) 0.5 mg PO DAILY PRN PRN Reason: severe anxiety Last Admin: 07/23/25 09:54 Dose: 0.5 mg Magnesium Hydroxide (Milk Of Magnesia 30 Ml Oral.Susp) 30 ml PO DAILY PRN PRN Reason: Constipation Multivitamins/Vitamin C (Multivitamin Tablet) 1 tab PO DAILY RATNA Last Admin: 07/23/25 09:53 Dose: 1 tab Nicotine Polacrilex (Nicotine Polacrilex 2 Mg Gum) 4 mg BUCCAL Q2H PRN PRN Reason: Nicotine Cravings Prazosin HCl (Prazosin Hcl 1 Mg Capsule) 2 mg PO BEDTIME RATNA; Protocol Last Admin: 07/22/25 23:33 Dose: 2 mg Quetiapine Fumarate (Quetiapine Fumarate 100 Mg Tablet) 100 mg PO BEDTIME RATNA Last Admin: 07/22/25 23:31 Dose: 100 mg Risperidone (Risperidone 1 Mg Tablet) 1 mg PO DAILY PRN PRN Reason: disorganized behavior Trazodone HCl (Trazodone Hcl 50 Mg Tablet) 50 mg PO BEDTIME MRX1 PRN PRN Reason: Insomnia Allergies Allergies Allergy/AdvReac Type Severity Reaction Status Date / Time No Known Allergies Allergy Verified 06/24/25 17:49 Assessment & Plan Assessment & Plan (1) Schizoaffective disorder, bipolar type: Status: Acute Code(s): F25.0 - Schizoaffective disorder, bipolar type (2) Depression: Status: Acute Code(s): F32.A - Depression, unspecified (3) PTSD (post-traumatic stress disorder): Status: Acute Code(s): F43.10 - Post-traumatic stress disorder, unspecified Plan HPI: Pt is a 40 year old female who presented to the ED after being dropped off by a friend . Upon arrival to the ED she appeared increasingly paranoid and indicated that she was fearful she was being drugged by her and voiced concern for her and her children's safety. Pt stated that she wanted to have her medications checked as things are just off, my daily routine is off . Pt provided inconsistent information as evidence by conflicting information from what she disclosed to the ED provider upon arrival and at times appears to be a poor historian as a result of her current presentation. She remained guarded at this time and at times appeared to be minimizing symptoms as well as medication seeking as she remained primarily focused on her controlled substances that she is currently prescribed. It is to be noted. Formulation/clinical reasoning: Increasing psychotic behaviors, paranoid, disorganized thought process. Family members have safety concern regarding patient mental status at this current time. Even the above information, patient will be benefit in restrictive environment, medication management, and refer patient back to outpatient psychiatric services. Hospital course: 06/25/25: Continue with home medications. In my impression, patient may think that she just come here to get refill of her medication and will be sent home. However, other time she also stating that she has not come here for medication change as if she needs a refilled she can get it feel from her OP provider. Ativan 1 mg q.4 hours p.r.n. for severe anxiety. Home dose was only 0.5 b.i.d. p.r.n.. Stimulants: Continue with stimulants, we will monitor if it causing more psychotic behavior. Questioned if patient overused her Adderall information regarding recent weight lost, and be psychotic. 06/26/2025: Continue to encourage medication adherence and engagement. 06/27: accepting medications and requested prazosin 2mg be restarted 06/28 Patient is a limited historian due to disorganized speech and behavior. Throughout interview patient looking off in the distance, sometimes very latent responses, appearing to be internally preoccupied; frequently not finishing sentences, giving cryptic, vague and frequently unrelated responses to discussion questions. [employer] introduces himself has a doctor... Patient then asks are you a Dr.? I am not a doctor. I am Daphne... On inquiry about why patient came to the hospital, she replies, with speech latency and in broken sentences I came... I wanted medications reviewed... And wanted a toxicology... The unknown.... Things got a little unhinged... The court room... Domestic stuff. Patient goes on I was looking for my medications at my house... Interviews, talking, trying to survive all the time... The reality of things is unclear to me... Of the events. [employer] asks for clarification to which patient says, again after significant latency, the court house... I just want my [place] back... (she later clarifies that the [place] is a multi tool knife). Patient then started to refer to another patient, saying he wants a tape measure... I have one... I can hang out... There is time and things will be revealed... Whenever thing comes together... Family and judges and worldly stuff.. [employer] asks about her earlier concern that her is poisoning her... Patient remained silent for awhile and then says I checked my meds... When I went to talk to them... I would like to see the toxicology... My back was sweating.. I was questioning reality generally... There was a 911 call... She then told automatic typewriter inspector she questioned the reality of this conversation but could not clarify further but then some something about getting her red ticket.. Regarding how she got to the hospital, patient said officers came to my house and talked to my kids...my daughter called them...since i was not feeling safe.....i know my very well...it just wasnt a good think going on...i wasn't...no...it got real.....im in survival mode...it started getting scary and dangerous...my was getting a little...red flaggs...it started to be an unsafe situation..he [] was not himself... Patient also said that her best friend Stephanie Holder dropped her off at the hospital; not clear how she got here. Patient gave automatic typewriter inspector permission to talk to Stephanie and also to collect information from her . denies drugs or taking her prescribed medications in excess denies hx manic episodes; yes AH but nothing to be alarmed about... Nurse Note by Karon Arora RN 06/25/25 09:54 - This RN spoke to [facility] regarding the situation that led to being present here in the ER. Per [facility] employee, yesterday there was an argument between the patient and her where both her and her received a crisis consult. Per [facility] employee, patient was originally seen by [facility] crisis and it was determined she could go to respite, however, shortly after, crisis was called back to the home and the patient was sent here to the hospital. When the [facility] employee interviewed the pts 14 year old son, he reports that his mom has been acting really paranoid about things as of recently. (daughter 14yo, Son 11yo) 06/29 Patient remains with psychotic symptoms and said she thinks maybe he[] wants to kill or hurt me... [employer] inquired and patient kept coming back to the fact that he put her home medications in the wrong pill box compartments... and this is what made her think he is trying to kill her... Patient however was willing to entertain that perhaps this might not be true. However, she is significantly more organized today than she was yesterday, talking in full sentences sticking to the topic at hand. She agrees that yesterday she was feeling much more confused she is thinking more clearly today. Patient's father present who has been meeting with her daily since this admission and who agrees that she is significantly better and headed back towards her regular self. Patient agreed to sign a CV and also agreed to have Vyvanse and bupropion discontinued for now; she also agreed to take risperidone which automatic typewriter inspector explained was hopefully just for few days. IMPRESSION: Patient demonstrating psychotic symptoms, auditory hallucinations, paranoid delusions and disorganized speech and behavior; patient is certainly internally preoccupied. So far collateral reports that patient has no history of psychosis or bipolar disorder. After gathering collateral from patient's and father, both deny any history of psychosis or sukhdeep were similar such episodes. Both speculate patient may have abused prescription medications including Vyvanse (and reports may have used crack cocaine) accounting for triggering this episode. Frequently substance induced psychosis resolves within 1-2 days (though can also persist for 2 or more weeks); however patient has remained on both Vyvanse and Wellbutrin which could prolonged symptoms (as both can increase dopamine). Will hold both Vyvanse and Wellbutrin. Also started risperidone low-dose to help with dopamine blockade. 06/30 Patient remains with paranoid ideation; refused Risperdal. On inquiry patient said she does not think she needs it but automatic typewriter inspector continue to educate patient on medication and she said she would start taking it. Patient with some increase disorganized behaviors today, seen self-dialoguing and responding to internal stimuli at 1 point standing aimlessly in hallway, not moving. Slept only 4 hours -hopefully patient will start taking risperidone 07/01 patient remains with intermittent odd and disorganized behaviors, talking to herself in the wetzel; remains with paranoid ideations however is able to be more logical in conversation and for longer periods of time. Patient's sister visiting who gave history that patient started to a peer to be manic about 5 months ago which correlates to increased Vyvanse dose (hyperactive, rapid speech, little sleep-which patient concurred); patient's sister volunteered that she has schizoaffective disorder and has been on medication which was a surprise to patient but with this news was willing to take Risperdal 07/02 patient doing much better. Patient is more organized in both speech and behavior. Patient did take Risperdal twice yesterday but found it made her tired and did not want it anymore. However she agrees it may have been helpful. Patient for the 1st time able to talk much more logically and accurately about history and shares with automatic typewriter inspector that she has been diagnosed with bipolar disorder in the past and was at 1 point on Seroquel around 400 mg and then stabilized on Lamictal 200 mg. Patient said that she had been doing well for so long that her current psychiatric provider agreed to start peeling away her medications and Seroquel was lowered to 100 mg Lamictal tapered down to 50 mg. This taper coincided with patient being started on stimulant medication for ADHD and her Vyvanse was titrated. Patient agrees that it is very possible that the tapering off of Lamictal (she may have been on only Lamictal and not Seroquel for quite awhile) the titration of a stimulant medication is what triggered manic episode which worsened over the past few weeks and included significant paranoid ideations. Patient agrees to get back on Lamictal which caused no side effects. -remains with paranoid ideations about her but they are less intense and patient more open to reality testing; of note patient's does have schizophrenia 07/05 patient continues to be improved, overall organized in speech and behavior able to discuss diagnosis and treatment appropriately 07/06Patient more disorganized doing bizarre, odd hand movements during interview. Patient mimicking/mirroring the hand gestures of whomever is talking; some echolalia as well. Patient remains very vague when discussing her thoughts. Continues to have some paranoid ideations about her however patient's sister does agree that patient's is excessively controlling and for the past 2 years, the sister has noticed that he dictates how long and with whom patient can spend time. Patient struggles to have insight into her behaviors including when they are pointed out in real-time. However she does agree to start perphenazine\ -had discussed risks/side effects of antipsychotics 07/07 Patient denies any medications side effects. Continues to have disorganized in behaviors and now hiding in the corners of the hallway throughout the milieu; continues to mirror movements of others with intermittent echolalia. Remains very vague on what he is thinking and keeps saying she is just waiting for it to all come together. 07/08 Patient Increasingly disorganized; standing in the corner for hours, peering around it into the milieu, not talking. Patient guarded on approach. Initially refused perphenazine but was willing to discuss it with automatic typewriter inspector and patient said she does not feel like herself and hoped that the medication would help repair that. Patient agreed to increasing perphenazine to 4 mg t.i.d. -regarding diagnosis, patient has past diagnosis of bipolar disorder which reportedly was treated with Lamictal and before that Seroquel. Patient is not particularly manic but is definitely with psychotic symptoms. Will provisionally change diagnosis to schizoaffective disorder 07/09 little better today with increased dose of perphenazine which patient has been taking. She denies medication side effects and agrees that medications are helpful Still odd but less so and seems to be more organized. Still with limited insight but reports she is feeling better and more like herself though can not specifically articulate why. Patient said she had a good talk with her daughter which was helpful; also talked with the telling him she wants to separate which she said was a long time coming -seems that perphenazine is helping; will continue 07/10 Patient agitated on the unit today and yelling in the hallway. [employer] discussed this with patient who expresses concern about her being with her children. pt says she gave him bad news about their marriage and is worried about his mental state. She says he has had hallucinated/paranoid delusions about their son, a few years ago. Today, she can not say what he did or said that worried her...other than vague references to his composure...reactions...like he's not in touch with reality... But with no specifics...She agrees perhaps he could just be anxious... She also says she believes he has been unmedicated for a long time She then told her automatic typewriter inspector that Juan Miguel [son] talks in code to me, like I asked 'what are you wearing to school today...' and he said 'my pink Allan shirt tomorrow...' but he does not have a pink allan shirt, which means he's talking to me in code... She said this exchange happened the week prior to this admission and that he is talking in code her so his father will not know. Patient then showed automatic typewriter inspector a picture her son made which her brought in for her during this visit; she insisted him doing so was manipulative though automatic typewriter inspector could not understand why; patient showed automatic typewriter inspector a letter her wrote to her which was generally about how he is hoping for her and he wished to get help her. Patient says she thinks it is weird though automatic typewriter inspector could not understand why. After this encounter with her , she l called PD for wellness check on son; check was completed and PD informed her that her son is OK. She signed a 3 day notice 07/11 Patient refuse perphenazine, last night and this morning. Patient barely slept and staff reports she was pacing the wetzel throughout the night. On inquiry patient said that the afternoon dose was making her feel tired; regarding the bedtime dose, she said she just does not want to take this medication and wants to try something different in the same category. [employer] offered haloperidol with which she agreed. Impression: Patient remains with paranoid ideations and no insight into her own illness. She has some hypomanic behaviors; most of her problematic symptoms have been psychosis so have been focusing on antipsychotic however patient may benefit from traditional mood stabilizer; will continue to titrate Lamictal however this may not be adequate. Will hold Lexapro. -if patient willing will also consider increasing Seroquel at bedtime though concern is it would cause daytime sedation and she would refuse it. 07/12 little more organized, angry at her ; does not want Haldol, saying it makes her too sedated and agreed to Clozaril after reviewing risks/side effects -patient says she will retract her 3 day and stay a little longer 07/13 more odd behaviors today, wandering, sometimes hiding in hallway; other times social with peers. Pt witnessed self-dialouging in bedroom. Agrees to titration of clozapine. Agrees to remain on the unit longer for treatment -when patient takes perphenazine or Haldol, odd behaviors seemed to clear up; currently those have been discontinued and she is on low-dose of clozapine which is being titrated 07/14: Patient reports moderate anxiety. Denies depression. Denies paranoia. Denies SI/HI/AVH. Continue current treatment regimen. 07/15/25: Patient is not active engage in 1-1 assessment, walking the wetzel, asking this provider credential she is not legal . can you open the door? . Report to nurse that she find it helpful to distract her self by using headphone. Told nurse that she tries to have a good day. Appear sad, irritable, preoccupied and appear to be psychotic with mood swing, restless. Per nursing, patient slept for 5 hours, compliant with meds. Continue with current plan. 07/16/25: I am upset every morning and am upset now, but I don't want to talk about it. Team reports pt is upset about needing to be on the unit this weekend. Family meeting on 07/19. Pt allowed brief meeting with tw- discussed Clozapine increase by primary provider in preparation for discharge, she agrees and concurs. Team reports pt slept for ~6.5 hours. Described as anxious, guarded and labile Episodic yelling on the unit, after a telephone call with partner. Sat on the floor in the middle of the milieu, asking her primary RN to pick her up. Was able to get off the floor on her own and meet with automatic typewriter inspector briefly, however, declined to discuss what was bothering her. Denies SI,HI,AH,VH- I am just pissed, you know? No new medical/diagnostic results. Back pain relieved with Ibuprofen Plan: Clozapine to increase to 100 mg tonight per primary provider. 07/17/25: Meet with patient in exam room. Report that anxiety is very high this morning. Says that she does not want to take PRN but she took it and report feeling better. Report trying to use coping skills such as listening to music, doing some art work and talk to staff and try not to explode . Patient is visible, less irritable and more cooperative, not question regarding this provider's capacity and title. Denies SI/SIB/HI/AVH. Can be labile. No medication changes. Per nursing, slept for 6 hours, compliant with meds. Denies side effects. Continue with current treatment plan. 07/18/25: Patient slept for 6 hours, frustrated being here. Increased anxiety this morning and not happy with her . Patient is the wetzel appear to be suspicious at the end of the wetzel, restless. She denies safety concerns, overwhelmed with coming family meeting, restless. Patient was on the phone with her , got very angry and upset, she started being loud talking about her . Able to redirect to talk to this provider in Group room C. Report that her told her she is not allowed to go home if you talk to me that way . Patient reports that her is not reasonable, not wanting to do family counseling regarding their marriage. She called him to just to talk to him in advance to prepare for tomorrow family meeting but at the end getting triggered by Scott . Patient was tearful, sad and irritable talking about her Patient accepted Ativan 1mg x1 to calm her down with good effects. 07/19 Patient remains with psychotic symptoms and remains guarded. Bizarre movements in the milieu. Today however was the 1st time she shared that she does have auditory hallucinations and will here words that at the moment she thinks are in reference to her, but she will around and see no one talking... she has not quite open to reality testing. Patient continues to have paranoid ideations. She remains quite guarded and mostly says I am just waiting for to all come together when asked further about psychotic symptoms. Patient agrees to increasing clozapine. She reports that she is starting to feel quite depressed which she thinks his partly situational, missing her kids but also just a deeper regular depression and she mentions that she has been off her Wellbutrin and Vyvanse and Lexapro. [employer] discussed the reasons for this and the concern that restarting these too soon could exacerbate symptoms which she accepts and again agrees to increase clozapine; also agrees to continued Lamictal increase 07/20 Patient now back to mirroring various staff; continues with bizarre movements in hallway. Patient opened up a bit more about her thoughts. Regarding mirroring, she at 1st said it was a joke but then she acknowledged that it is not a joke... She shared that she thinks perhaps this admission is all a set up and that this is not a real hospital unit, that this automatic typewriter inspector is not a real doctor and that the staff are all involved in this set up.. She could not explain why such as set up would be occurring and somehow her mirroring Staff is a part of this life. [employer] attempted reality testing and patient was not opposed to it but says she is not sure if she believes that this automatic typewriter inspector is a real doctor or that this is a real hospital wings; regarding the unit, she says it looks different, it set a part... It is not new... It is not a part of the hospital. Patient agreed to consider that this police might just be her mind playing tricks on her and automatic typewriter inspector reassured her that all of this is in fact real and that she is being treated for in illness. She continues to report AH but remains vague about it. / remains with paranoid ideations, AH; will continue titrating clozapine Impression: Patient remains psychotic with auditory hallucinations and paranoid ideations. While her behaviors themselves (internal preoccupation and self dialoguing; disorganized behaviors) and comments reveal the psychotic process, Up until now she has remained very guarded about sharing them. Patient has little insight, though she remains willing to remain on the unit continue with medication. Patient told automatic typewriter inspector she has has a diagnosis of bipolar disorder and was manic/hypomanic for a few months prior to worsening psychotic symptoms (lowering of mood stabilizer and increasing of Vyvanse seemed to be the trigger); she used to be on Seroquel (400-600mg) but found it too sedating and cause significant weight gain and does not want to increase dose (using it for sleep only). While Patient did have some manic behaviors earlier in admission, it seems that the psychotic symptoms are independent of both sukhedep and depression as they have been ongoing in between mood episodes and so will continue with diagnosis of schizoaffective disorder, bipolar type (but leave it as provisional dx). Patients severe trauma history is certainly contributory to her anxiety and paranoia. Regarding patient's lack of insight, yesterday she called her 11-year-old son and told him the only reason she is in the hospital was because of his father which significantly upset the son. Currently Patient remains too paranoid about her to adequately discuss her own symptoms and why she ended up hospitalized (though she has some sense that she was getting dysregulated). Patient remains fragile and she remain vulnerable to worsening psychosis or return of manic symptoms; she requires continued medication titration. She has significant paranoid ideations about her and has already lost full access to her children via DCF, and can now only see them when supervised; if she were to discharge now, her ongoing symptoms place her at high risk for further DCF intervention. Given her lack of insight, paranoid ideations towards her and paranoid belief that this admission is a set up Patient is at high risk for unsafe behaviors in the community and requires continued inpatient stay for treatment. Regarding medication management, will continue to titrate clozapine since she is tolerating it and it is helpful for both psychosis and bipolar disorder (including bipolar depression). Would like to restart Wellbutrin for depression however will try to get AH under better control 1st; will hold off on Lexapro until mood stabilizing medications are at therapeutic doses so as not to trigger manic episode. 07/22 Patient remains with paranoid ideations and told automatic typewriter inspector today that she is fully convinced that she is here on the unit as the focal point of a conspiracy with staff and pretend patients all in on it playing a game at her expense. She said she is feeling tired of playing the game and she just not going to right now. [employer] asked for an example and she said that there was water on the floor which she had to walk around and not get emotionally dysregulated; she explained that the water was purposely but there to test her. [employer] continued to provide education to the contrary that she is being psychiatrically treated on a true psychiatric unit. It is difficult to tell if patient has some insight in that she needs treatment and medication or if she is accepting treatment/medication as part of playing the game... At any rate she agrees to increase Clozaril. She said she is feeling tired in the morning and so automatic typewriter inspector agreed to try and see if she could tolerate restarting Wellbutrin. -patient expressing depressed feelings and feeling tired in the morning which make sense as she is off both Wellbutrin and Vyvanse; will restart Wellbutrin to help with daytime tiredness and depression at the risk of exacerbating psychotic symptoms. Starting at a low-dose is minimal risk and automatic typewriter inspector considers it worth restarting this medication to avoid patient becoming disinterested in clozapine -retracted 3 day notice 07/23 No change in presentation; patient remains self dialouging. Patient continues to believe the people on the unit are actors part of a set up scheme, pretending to be a psychiatric unit. Patient pointed out different staff that she is unable to tell if they are part of the scheme or not -continue clozapine titration -today started Wellbutrin XL 150 mg since patient complaining of depression and tiredness; hoping that this does not exacerbate psychotic symptoms Plan cv q15 Increased to clozapine 200 mg q.h.s. Started Wellbutrin XL 150 mg daily continue Seroquel 100 at bedtime for sleep (perhaps can eventually get off this and just use clozapine). Increased Lamictal to 150 mg: Used to be on 200 and has been on 50 mg for months BuSpar 15 mg twice a day. HOLD Wellbutrin 300 mg daily: To avoid exacerbating psychotic symptoms HOLD Lexapro 10 mg daily since hypomanic behaviors HOLD Vyvanse DC perphenazine; patient did not want it, saying it made her sedated DC risperidone; patient does not like and patient is improved DC Haldol; said made too sedating P.R.N. Zyprexa 5mg q.4 hours p.r.n. for agitation/psychosis Patient educated on: diagnosis, medication risk/benefits and therapeutic strategies Informed Consent: understands, does not understand and further education needed Reason for continued inpatient stay Substantial Risk for: inability to function and rapid decompensation Time Spent With Patient Time: Total time managing care of this patient today ____ minutes.
[2025-07-23 20:00] VITALS: BP 126/83; PULSE 104; RESP 18; TEMP 37.1; O2SAT 100
[2025-07-24 08:00] VITALS: BP 118/77; PULSE 104; RESP 20; TEMP 36.8; O2SAT 98
[2025-07-24] MEDS: buPROPion HCl XL 150 MG TAB.ER.24H PO (09:18)
--- NOTE | 2025-07-24 10:13 | P.PNPSI_ITS ---
Subjective Subjective Date of Service: 07/24/25 Reason For Visit: Recurrent major depression with psychosis Subjective Notes: Conditional Voluntary Healthcare Proxy: No Guardianship: No Medical Problems Affecting Mental Status: No Interim History: Reviewed with team, plan of care reviewed, pt allowed a brief interaction stating she was doing OK and denied current issues or concerns. She is visable in milieu, talkative with select peers, spending a lot of time looking out of the wetzel windows. Team reports she feels we are playing games with her. Approached about this issue-she denied Medication Compliance: Yes Side effects from medications: No Attending Groups: Intermittent Review of Systems Acute medical concerns: No Medical Review of Systems: unchanged Review of Systems Review of Systems Denies Mental Status Exam Mental Status Exam Patient Appearance: Appropriate Patient Orientation: Person, Place and Situation Level of Consciousness: Alert Patient Behavior: Guarded, Suspicious and Good Eye Contact Mood Description: Withdrawn and Blunted Affect Description: Withdrawn and Blunted Patient Cognition Impaired: No Ability to Follow Directions: Fair Speech Pattern: Spontaneous Speech Memory Description: Episodic Impaired Hallucinations: None (denies) Delusions: Paranoid Ideation Perceptual Disturbances: Depersonalization and Derealization Thought Process: Distracted Thought Content: positive for Suicidal Ideation (denies) Judgement: Fair Diagnostics Vital Signs (24Hr): Vital Signs - 24 hr 07/23/25 20:00 07/24/25 08:00 Temperature 98.7 F 98.2 F Pulse Rate 104 H 104 H Respiratory Rate 18 20 Blood Pressure 126/83 118/77 Pulse Oximetry 100 98 Oxygen Delivery Method Room Air Room Air BMI result Body Mass Index 23.0 Labs 06/30/25 07:49 06/30/25 07:49 Medications Medications Current Medications Acetaminophen (Acetaminophen 325 Mg Tablet) 650 mg PO Q6H PRN PRN Reason: Headache/Pain, Scale 1-10 Last Admin: 07/06/25 14:36 Dose: 650 mg Al Hydroxide/Mg Hydroxide (Magnesium Hydrox/Alum Hydrox 30 Ml Oral.Susp) 30 ml PO Q6H PRN PRN Reason: Heartburn/Nausea Bupropion HCl (Bupropion Hcl Xl 150 Mg Tab.Er.24h) 150 mg PO DAILY [facility] Last Admin: 07/24/25 09:18 Dose: 150 mg Buspirone HCl (Buspirone Hcl 5 Mg Tablet) 15 mg PO BID [facility] Last Admin: 07/24/25 09:18 Dose: 15 mg Clozapine (Clozapine 100 Mg Tablet) 200 mg PO BEDTIME [facility] Last Admin: 07/23/25 23:05 Dose: 200 mg Cyclobenzaprine HCl (Cyclobenzaprine Hcl 10 Mg Tablet) 10 mg PO TID PRN PRN Reason: Muscle Spasm Last Admin: 07/24/25 10:02 Dose: 10 mg Fluticasone Propionate (Fluticasone Propionate Nasal 16 Gm [place]) 1 spray NOSTRIL-B BID PRN PRN Reason: sinus congestion Last Admin: 07/21/25 15:57 Dose: 1 spray Hydroxyzine HCl (Hydroxyzine Hcl 25 Mg Tablet) 25 mg PO Q6H PRN PRN Reason: mild anxiety Last Admin: 07/23/25 17:12 Dose: 25 mg Ibuprofen (Ibuprofen 600 Mg Tablet) 600 mg PO Q6H PRN PRN Reason: Pain, Severe (Pain Scale 7-10) Last Admin: 07/22/25 13:40 Dose: 600 mg Lamotrigine (Lamotrigine 25 Mg Tablet) 150 mg PO BEDTIME [facility] Last Admin: 07/23/25 23:05 Dose: 150 mg Levothyroxine Sodium (Levothyroxine Sodium 75 Mcg Tablet) 75 mcg PO DAILY@0600 [facility] Last Admin: 07/24/25 07:12 Dose: 75 mcg Lidocaine HCl (Lidocaine 4 % Cream Kit) 1 appl TOPICAL ONCE PRN; Protocol PRN Reason: lower back pain Last Admin: 07/16/25 07:05 Dose: 1 appl Lorazepam (Lorazepam 0.5 Mg Tablet) 0.5 mg PO DAILY PRN PRN Reason: severe anxiety Last Admin: 07/23/25 09:54 Dose: 0.5 mg Magnesium Hydroxide (Milk Of Magnesia 30 Ml Oral.Susp) 30 ml PO DAILY PRN PRN Reason: Constipation Multivitamins/Vitamin C (Multivitamin Tablet) 1 tab PO DAILY [facility] Last Admin: 07/24/25 09:19 Dose: 1 tab Nicotine Polacrilex (Nicotine Polacrilex 2 Mg Gum) 4 mg BUCCAL Q2H PRN PRN Reason: Nicotine Cravings Prazosin HCl (Prazosin Hcl 1 Mg Capsule) 2 mg PO BEDTIME RATNA; Protocol Last Admin: 07/23/25 23:05 Dose: 2 mg Quetiapine Fumarate (Quetiapine Fumarate 100 Mg Tablet) 100 mg PO BEDTIME [facility] Last Admin: 07/23/25 23:06 Dose: 100 mg Risperidone (Risperidone 1 Mg Tablet) 1 mg PO DAILY PRN PRN Reason: disorganized behavior Trazodone HCl (Trazodone Hcl 50 Mg Tablet) 50 mg PO BEDTIME [id number] PRN PRN Reason: Insomnia Allergies Allergies Allergy/AdvReac Type Severity Reaction Status Date / Time No Known Allergies Allergy Verified 06/24/25 17:49 Assessment & Plan Assessment & Plan (1) Schizoaffective disorder, bipolar type: Status: Acute Code(s): F25.0 - Schizoaffective disorder, bipolar type (2) Depression: Status: Acute Code(s): F32.A - Depression, unspecified (3) PTSD (post-traumatic stress disorder): Status: Acute Code(s): F43.10 - Post-traumatic stress disorder, unspecified Plan HPI: Pt is a 40 year old female who presented to the ED after being dropped off by a friend . Upon arrival to the ED she appeared increasingly paranoid and indicated that she was fearful she was being drugged by her and voiced concern for her and her children's safety. Pt stated that she wanted to have her medications checked as things are just off, my daily routine is off . Pt provided inconsistent information as evidence by conflicting information from what she disclosed to the ED provider upon arrival and at times appears to be a poor historian as a result of her current presentation. She remained guarded at this time and at times appeared to be minimizing symptoms as well as medication seeking as she remained primarily focused on her controlled substances that she is currently prescribed. It is to be noted. Formulation/clinical reasoning: Increasing psychotic behaviors, paranoid, disorganized thought process. Family members have safety concern regarding patient mental status at this current time. Even the above information, patient will be benefit in restrictive environment, medication management, and refer patient back to outpatient psychiatric services. Hospital course: 06/25/25: Continue with home medications. In my impression, patient may think that she just come here to get refill of her medication and will be sent home. However, other time she also stating that she has not come here for medication change as if she needs a refilled she can get it feel from her OP provider. Ativan 1 mg q.4 hours p.r.n. for severe anxiety. Home dose was only 0.5 b.i.d. p.r.n.. Stimulants: Continue with stimulants, we will monitor if it causing more psychotic behavior. Questioned if patient overused her Adderall information regarding recent weight lost, and be psychotic. 06/26/2025: Continue to encourage medication adherence and engagement. 06/27: accepting medications and requested prazosin 2mg be restarted 06/28 Patient is a limited historian due to disorganized speech and behavior. Throughout interview patient looking off in the distance, sometimes very latent responses, appearing to be internally preoccupied; frequently not finishing sentences, giving cryptic, vague and frequently unrelated responses to discussion questions. Sap Abap Developer introduces himself has a doctor... Patient then asks are you a Dr.? I am not a doctor. I am Daphne... On inquiry about why patient came to the hospital, she replies, with speech latency and in broken sentences I came... I wanted medications reviewed... And wanted a toxicology... The unknown.... Things got a little unhinged... The court room... Domestic stuff. Patient goes on I was looking for my medications at my house... Interviews, talking, trying to survive all the time... The reality of things is unclear to me... Of the events. Sap Abap Developer asks for clarification to which patient says, again after significant latency, the court house... I just want my Lovelady back... (she later clarifies that the Garrett is a multi tool knife). Patient then started to refer to another patient, saying he wants a tape measure... I have one... I can hang out... There is time and things will be revealed... Whenever thing comes together... Family and judges and worldly stuff.. Sap Abap Developer asks about her earlier concern that her is poisoning her... Patient remained silent for awhile and then says I checked my meds... When I went to talk to them... I would like to see the toxicology... My back was sweating.. I was questioning reality generally... There was a 911 call... She then told policy writer typist she questioned the reality of this conversation but could not clarify further but then some something about getting her red ticket.. Regarding how she got to the hospital, patient said officers came to my house and talked to my kids...my daughter called them...since i was not feeling safe.....i know my very well...it just wasnt a good think going on...i wasn't...no...it got real.....im in survival mode...it started getting scary and dangerous...my was getting a little...red flaggs...it started to be an unsafe situation..he [] was not himself... Patient also said that her best friend Stephanie Holder dropped her off at the hospital; not clear how she got here. Patient gave policy writer typist permission to talk to Stephanie and also to collect information from her . denies drugs or taking her prescribed medications in excess denies hx manic episodes; yes AH but nothing to be alarmed about... Nurse Note by Karon Arora RN 06/25/25 09:54 - This RN spoke to [facility] regarding the situation that led to being present here in the ER. Per [facility] employee, yesterday there was an argument between the patient and her where both her and her received a crisis consult. Per [facility] employee, patient was originally seen by [facility] crisis and it was determined she could go to respite, however, shortly after, crisis was called back to the home and the patient was sent here to the hospital. When the [facility] employee interviewed the pts 14 year old son, he reports that his mom has been acting really paranoid about things as of recently. (daughter 14yo, Son 11yo) 06/29 Patient remains with psychotic symptoms and said she thinks maybe he[] wants to kill or hurt me... Sap Abap Developer inquired and patient kept coming back to the fact that he put her home medications in the wrong pill box compartments... and this is what made her think he is trying to kill her... Patient however was willing to entertain that perhaps this might not be true. However, she is significantly more organized today than she was yesterday, talking in full sentences sticking to the topic at hand. She agrees that yesterday she was feeling much more confused she is thinking more clearly today. Patient's father present who has been meeting with her daily since this admission and who agrees that she is significantly better and headed back towards her regular self. Patient agreed to sign a CV and also agreed to have Vyvanse and bupropion discontinued for now; she also agreed to take risperidone which policy writer typist explained was hopefully just for few days. IMPRESSION: Patient demonstrating psychotic symptoms, auditory hallucinations, paranoid delusions and disorganized speech and behavior; patient is certainly internally preoccupied. So far collateral reports that patient has no history of psychosis or bipolar disorder. After gathering collateral from patient's and father, both deny any history of psychosis or sukhdeep were similar such episodes. Both speculate patient may have abused prescription medications including Vyvanse (and reports may have used crack cocaine) accounting for triggering this episode. Frequently substance induced psychosis resolves within 1-2 days (though can also persist for 2 or more weeks); however patient has remained on both Vyvanse and Wellbutrin which could prolonged symptoms (as both can increase dopamine). Will hold both Vyvanse and Wellbutrin. Also started risperidone low-dose to help with dopamine blockade. 06/30 Patient remains with paranoid ideation; refused Risperdal. On inquiry patient said she does not think she needs it but policy writer typist continue to educate patient on medication and she said she would start taking it. Patient with some increase disorganized behaviors today, seen self-dialoguing and responding to internal stimuli at 1 point standing aimlessly in hallway, not moving. Slept only 4 hours -hopefully patient will start taking risperidone 07/01 patient remains with intermittent odd and disorganized behaviors, talking to herself in the wetzel; remains with paranoid ideations however is able to be more logical in conversation and for longer periods of time. Patient's sister visiting who gave history that patient started to a peer to be manic about 5 months ago which correlates to increased Vyvanse dose (hyperactive, rapid speech, little sleep-which patient concurred); patient's sister volunteered that she has schizoaffective disorder and has been on medication which was a surprise to patient but with this news was willing to take Risperdal 07/02 patient doing much better. Patient is more organized in both speech and behavior. Patient did take Risperdal twice yesterday but found it made her tired and did not want it anymore. However she agrees it may have been helpful. Patient for the 1st time able to talk much more logically and accurately about history and shares with policy writer typist that she has been diagnosed with bipolar disorder in the past and was at 1 point on Seroquel around 400 mg and then stabilized on Lamictal 200 mg. Patient said that she had been doing well for so long that her current psychiatric provider agreed to start peeling away her medications and Seroquel was lowered to 100 mg Lamictal tapered down to 50 mg. This taper coincided with patient being started on stimulant medication for ADHD and her Vyvanse was titrated. Patient agrees that it is very possible that the tapering off of Lamictal (she may have been on only Lamictal and not Seroquel for quite awhile) the titration of a stimulant medication is what triggered manic episode which worsened over the past few weeks and included significant paranoid ideations. Patient agrees to get back on Lamictal which caused no side effects. -remains with paranoid ideations about her but they are less intense and patient more open to reality testing; of note patient's does have schizophrenia 07/05 patient continues to be improved, overall organized in speech and behavior able to discuss diagnosis and treatment appropriately 07/06Patient more disorganized doing bizarre, odd hand movements during interview. Patient mimicking/mirroring the hand gestures of whomever is talking; some echolalia as well. Patient remains very vague when discussing her thoughts. Continues to have some paranoid ideations about her however patient's sister does agree that patient's is excessively controlling and for the past 2 years, the sister has noticed that he dictates how long and with whom patient can spend time. Patient struggles to have insight into her behaviors including when they are pointed out in real-time. However she does agree to start perphenazine\ -had discussed risks/side effects of antipsychotics 07/07 Patient denies any medications side effects. Continues to have disorganized in behaviors and now hiding in the corners of the hallway throughout the milieu; continues to mirror movements of others with intermittent echolalia. Remains very vague on what he is thinking and keeps saying she is just waiting for it to all come together. 07/08 Patient Increasingly disorganized; standing in the corner for hours, peering around it into the milieu, not talking. Patient guarded on approach. Initially refused perphenazine but was willing to discuss it with policy writer typist and patient said she does not feel like herself and hoped that the medication would help repair that. Patient agreed to increasing perphenazine to 4 mg t.i.d. -regarding diagnosis, patient has past diagnosis of bipolar disorder which reportedly was treated with Lamictal and before that Seroquel. Patient is not particularly manic but is definitely with psychotic symptoms. Will provisionally change diagnosis to schizoaffective disorder 07/09 little better today with increased dose of perphenazine which patient has been taking. She denies medication side effects and agrees that medications are helpful Still odd but less so and seems to be more organized. Still with limited insight but reports she is feeling better and more like herself though can not specifically articulate why. Patient said she had a good talk with her daughter which was helpful; also talked with the telling him she wants to separate which she said was a long time coming -seems that perphenazine is helping; will continue 07/10 Patient agitated on the unit today and yelling in the hallway. Sap Abap Developer discussed this with patient who expresses concern about her being with her children. pt says she gave him bad news about their marriage and is worried about his mental state. She says he has had hallucinated/paranoid delusions about their son, a few years ago. Today, she can not say what he did or said that worried her...other than vague references to his composure...reactions...like he's not in touch with reality... But with no specifics...She agrees perhaps he could just be anxious... She also says she believes he has been unmedicated for a long time She then told her policy writer typist that Juan Miguel [son] talks in code to me, like I asked 'what are you wearing to school today...' and he said 'my pink Allan shirt tomorrow...' but he does not have a pink allan shirt, which means he's talking to me in code... She said this exchange happened the week prior to this admission and that he is talking in code her so his father will not know. Patient then showed policy writer typist a picture her son made which her brought in for her during this visit; she insisted him doing so was manipulative though policy writer typist could not understand why; patient showed policy writer typist a letter her wrote to her which was generally about how he is hoping for her and he wished to get help her. Patient says she thinks it is weird though policy writer typist could not understand why. After this encounter with her , she l called PD for wellness check on son; check was completed and PD informed her that her son is OK. She signed a 3 day notice 07/11 Patient refuse perphenazine, last night and this morning. Patient barely slept and staff reports she was pacing the wetzel throughout the night. On inquiry patient said that the afternoon dose was making her feel tired; regarding the bedtime dose, she said she just does not want to take this medication and wants to try something different in the same category. Sap Abap Developer offered haloperidol with which she agreed. Impression: Patient remains with paranoid ideations and no insight into her own illness. She has some hypomanic behaviors; most of her problematic symptoms have been psychosis so have been focusing on antipsychotic however patient may benefit from traditional mood stabilizer; will continue to titrate Lamictal however this may not be adequate. Will hold Lexapro. -if patient willing will also consider increasing Seroquel at bedtime though concern is it would cause daytime sedation and she would refuse it. 07/12 little more organized, angry at her ; does not want Haldol, saying it makes her too sedated and agreed to Clozaril after reviewing risks/side effects -patient says she will retract her 3 day and stay a little longer 07/13 more odd behaviors today, wandering, sometimes hiding in hallway; other times social with peers. Pt witnessed self-dialouging in bedroom. Agrees to titration of clozapine. Agrees to remain on the unit longer for treatment -when patient takes perphenazine or Haldol, odd behaviors seemed to clear up; currently those have been discontinued and she is on low-dose of clozapine which is being titrated 07/14: Patient reports moderate anxiety. Denies depression. Denies paranoia. Denies SI/HI/AVH. Continue current treatment regimen. 07/15/25: Patient is not active engage in 1-1 assessment, walking the wetzel, asking this provider credential she is not legal . can you open the door? . Report to nurse that she find it helpful to distract her self by using headphone. Told nurse that she tries to have a good day. Appear sad, irritable, preoccupied and appear to be psychotic with mood swing, restless. Per nursing, patient slept for 5 hours, compliant with meds. Continue with current plan. 07/16/25: I am upset every morning and am upset now, but I don't want to talk about it. Team reports pt is upset about needing to be on the unit this weekend. Family meeting on 07/19. Pt allowed brief meeting with tw- discussed Clozapine increase by primary provider in preparation for discharge, she agrees and concurs. Team reports pt slept for ~6.5 hours. Described as anxious, guarded and labile Episodic yelling on the unit, after a telephone call with partner. Sat on the floor in the middle of the milieu, asking her primary RN to pick her up. Was able to get off the floor on her own and meet with policy writer typist briefly, however, declined to discuss what was bothering her. Denies SI,HI,AH,VH- I am just pissed, you know? No new medical/diagnostic results. Back pain relieved with Ibuprofen Plan: Clozapine to increase to 100 mg tonight per primary provider. 07/17/25: Meet with patient in exam room. Report that anxiety is very high this morning. Says that she does not want to take PRN but she took it and report feeling better. Report trying to use coping skills such as listening to music, doing some art work and talk to staff and try not to explode . Patient is visible, less irritable and more cooperative, not question regarding this provider's capacity and title. Denies SI/SIB/HI/AVH. Can be labile. No medication changes. Per nursing, slept for 6 hours, compliant with meds. Denies side effects. Continue with current treatment plan. 07/18/25: Patient slept for 6 hours, frustrated being here. Increased anxiety this morning and not happy with her . Patient is the wetzel appear to be suspicious at the end of the wetzel, restless. She denies safety concerns, overwhelmed with coming family meeting, restless. Patient was on the phone with her , got very angry and upset, she started being loud talking about her . Able to redirect to talk to this provider in Group room C. Report that her told her she is not allowed to go home if you talk to me that way . Patient reports that her is not reasonable, not wanting to do family counseling regarding their marriage. She called him to just to talk to him in advance to prepare for tomorrow family meeting but at the end getting triggered by Scott . Patient was tearful, sad and irritable talking about her Patient accepted Ativan 1mg x1 to calm her down with good effects. 07/19 Patient remains with psychotic symptoms and remains guarded. Bizarre movements in the milieu. Today however was the 1st time she shared that she does have auditory hallucinations and will here words that at the moment she thinks are in reference to her, but she will around and see no one talking... she has not quite open to reality testing. Patient continues to have paranoid ideations. She remains quite guarded and mostly says I am just waiting for to all come together when asked further about psychotic symptoms. Patient agrees to increasing clozapine. She reports that she is starting to feel quite depressed which she thinks his partly situational, missing her kids but also just a deeper regular depression and she mentions that she has been off her Wellbutrin and Vyvanse and Lexapro. Sap Abap Developer discussed the reasons for this and the concern that restarting these too soon could exacerbate symptoms which she accepts and again agrees to increase clozapine; also agrees to continued Lamictal increase 07/20 Patient now back to mirroring various staff; continues with bizarre movements in hallway. Patient opened up a bit more about her thoughts. Regarding mirroring, she at 1st said it was a joke but then she acknowledged that it is not a joke... She shared that she thinks perhaps this admission is all a set up and that this is not a real hospital unit, that this policy writer typist is not a real doctor and that the staff are all involved in this set up.. She could not explain why such as set up would be occurring and somehow her mirroring Staff is a part of this life. [employer] Developer attempted reality testing and patient was not opposed to it but says she is not sure if she believes that this policy writer typist is a real doctor or that this is a real hospital wings; regarding the unit, she says it looks different, it set a part... It is not new... It is not a part of the hospital. Patient agreed to consider that this police might just be her mind playing tricks on her and policy writer typist reassured her that all of this is in fact real and that she is being treated for in illness. She continues to report AH but remains vague about it. 07/21 remains with paranoid ideations, AH; will continue titrating clozapine 07/24 Impression: Patient remains psychotic with auditory hallucinations and paranoid ideations. While her behaviors themselves (internal preoccupation and self dialoguing; disorganized behaviors) and comments reveal the psychotic process, Up until now she has remained very guarded about sharing them. Patient has little insight, though she remains willing to remain on the unit continue with medication. Patient told policy writer typist she has has a diagnosis of bipolar disorder and was manic/hypomanic for a few months prior to worsening psychotic symptoms (lowering of mood stabilizer and increasing of Vyvanse seemed to be the trigger); she used to be on Seroquel (400-600mg) but found it too sedating and cause significant weight gain and does not want to increase dose (using it for sleep only). While Patient did have some manic behaviors earlier in admission, it seems that the psychotic symptoms are independent of both sukhdeep and depression as they have been ongoing in between mood episodes and so will continue with diagnosis of schizoaffective disorder, bipolar type (but leave it as provisional dx). Patients severe trauma history is certainly contributory to her anxiety and paranoia. Regarding patient's lack of insight, yesterday she called her 11-year-old son and told him the only reason she is in the hospital was because of his father which significantly upset the son. Currently Patient remains too paranoid about her to adequately discuss her own symptoms and why she ended up hospitalized (though she has some sense that she was getting dysregulated). Patient remains fragile and she remain vulnerable to worsening psychosis or return of manic symptoms; she requires continued medication titration. She has significant paranoid ideations about her and has already lost full access to her children via DCF, and can now only see them when supervised; if she were to discharge now, her ongoing symptoms place her at high risk for further DCF intervention. Given her lack of insight, paranoid ideations towards her and paranoid belief that this admission is a set up Patient is at high risk for unsafe behaviors in the community and requires continued inpatient stay for treatment. Regarding medication management, will continue to titrate clozapine since she is tolerating it and it is helpful for both psychosis and bipolar disorder (including bipolar depression). Would like to restart Wellbutrin for depression however will try to get AH under better control 1st; will hold off on Lexapro until mood stabilizing medications are at therapeutic doses so as not to trigger manic episode. 07/22 Patient remains with paranoid ideations and told policy writer typist today that she is fully convinced that she is here on the unit as the focal point of a conspiracy with staff and pretend patients all in on it playing a game at her expense. She said she is feeling tired of playing the game and she just not going to right now. S[employer]ap Developer asked for an example and she said that there was water on the floor which she had to walk around and not get emotionally dysregulated; she explained that the water was purposely but there to test her. Sap Abap Developer continued to provide education to the contrary that she is being psychiatrically treated on a true psychiatric unit. It is difficult to tell if patient has some insight in that she needs treatment and medication or if she is accepting treatment/medication as part of playing the game... At any rate she agrees to increase Clozaril. She said she is feeling tired in the morning and so policy writer typist agreed to try and see if she could tolerate restarting Wellbutrin. -patient expressing depressed feelings and feeling tired in the morning which make sense as she is off both Wellbutrin and Vyvanse; will restart Wellbutrin to help with daytime tiredness and depression at the risk of exacerbating psychotic symptoms. Starting at a low-dose is minimal risk and policy writer typist considers it worth restarting this medication to avoid patient becoming disinterested in clozapine -retracted 3 day notice 07/23 No change in presentation; patient remains self dialouging. Patient continues to believe the people on the unit are actors part of a set up scheme, pretending to be a psychiatric unit. Patient pointed out different staff that she is unable to tell if they are part of the scheme or not -continue clozapine titration -today started Wellbutrin XL 150 mg since patient complaining of depression and tiredness; hoping that this does not exacerbate psychotic symptoms 07/24/25:Reviewed with team, plan of care reviewed, pt allowed a brief interaction stating she was doing OK and denied current issues or concerns. She is visable in milieu, talkative with select peers, spending a lot of time looking out of the wetzel windows. Team reports she feels we are playing games with her. Approached about this issue-she denied Plan cv q15 Increased to clozapine 200 mg q.h.s. Started Wellbutrin XL 150 mg daily continue Seroquel 100 at bedtime for sleep (perhaps can eventually get off this and just use clozapine). Increased Lamictal to 150 mg: Used to be on 200 and has been on 50 mg for months BuSpar 15 mg twice a day. HOLD Wellbutrin 300 mg daily: To avoid exacerbating psychotic symptoms HOLD Lexapro 10 mg daily since hypomanic behaviors HOLD Vyvanse DC perphenazine; patient did not want it, saying it made her sedated DC risperidone; patient does not like and patient is improved DC Haldol; said made too sedating P.R.N. Zyprexa 5mg q.4 hours p.r.n. for agitation/psychosis Reason for continued inpatient stay Substantial Risk for: rapid decompensation Time Spent With Patient Time: Total time managing care of this patient today ____ minutes.
[2025-07-24 19:43] VITALS: BP 135/89; PULSE 109; TEMP 37.3; O2SAT 100
--- NOTE | 2025-07-25 05:47 | P.PNPSI_ITS ---
Subjective Subjective Date of Service: 07/25/25 Reason For Visit: Recurrent major depression with psychosis Interim History: Team reports pt refused Clozapine last night. Discussed with pt. You know, I woke up feeling like me today. When I take it I feel incoherent, too sedated . Discussed that refusals may increase her in pt time. We agreed to a decrease from 225 to 200 this evening. Medication Compliance: Intermittent Side effects from medications: Yes Attending Groups: Intermittent Review of Systems Acute medical concerns: No Medical Review of Systems: unchanged Review of Systems Review of Systems denies Mental Status Exam Mental Status Exam Patient Appearance: Appropriate Patient Orientation: Person, Place and Situation Level of Consciousness: Alert Patient Behavior: Talkative and Good Eye Contact Mood Description: Constricted Affect Description: Constricted Patient Cognition Impaired: No Ability to Follow Directions: Good Speech Pattern: Spontaneous Speech Memory Description: Episodic Impaired Hallucinations: None (denies) Perceptual Disturbances: Depersonalization and Derealization Thought Content: positive for Suicidal Ideation (denies) Judgement: Fair Diagnostics Vital Signs (24Hr): Vital Signs - 24 hr 07/24/25 08:00 07/24/25 19:43 Temperature 98.2 F 99.2 F Pulse Rate 104 H 109 H Respiratory Rate 20 Blood Pressure 118/77 135/89 Pulse Oximetry 98 100 Oxygen Delivery Method Room Air Room Air BMI result Body Mass Index 23.0 Labs 06/30/25 07:49 06/30/25 07:49 Medications Medications Current Medications Acetaminophen (Acetaminophen 325 Mg Tablet) 650 mg PO Q6H PRN PRN Reason: Headache/Pain, Scale 1-10 Last Admin: 07/24/25 20:52 Dose: 650 mg Al Hydroxide/Mg Hydroxide (Magnesium Hydrox/Alum Hydrox 30 Ml Oral.Susp) 30 ml PO Q6H PRN PRN Reason: Heartburn/Nausea Bupropion HCl (Bupropion Hcl Xl 150 Mg Tab.Er.24h) 150 mg PO DAILY [facility] Last Admin: 07/24/25 09:18 Dose: 150 mg Buspirone HCl (Buspirone Hcl 5 Mg Tablet) 15 mg PO BID RATNA Last Admin: 07/24/25 22:44 Dose: 15 mg Clozapine (Clozapine 25 Mg Tablet) 225 mg PO BEDTIME RATNA Last Admin: 07/24/25 22:44 Dose: Not Given Cyclobenzaprine HCl (Cyclobenzaprine Hcl 10 Mg Tablet) 10 mg PO TID PRN PRN Reason: Muscle Spasm Last Admin: 07/24/25 10:02 Dose: 10 mg Fluticasone Propionate (Fluticasone Propionate Nasal 16 Gm [place]) 1 spray NOSTRIL-B BID PRN PRN Reason: sinus congestion Last Admin: 07/21/25 15:57 Dose: 1 spray Hydroxyzine HCl (Hydroxyzine Hcl 25 Mg Tablet) 25 mg PO Q6H PRN PRN Reason: mild anxiety Last Admin: 07/23/25 17:12 Dose: 25 mg Ibuprofen (Ibuprofen 600 Mg Tablet) 600 mg PO Q6H PRN PRN Reason: Pain, Severe (Pain Scale 7-10) Last Admin: 07/22/25 13:40 Dose: 600 mg Lamotrigine (Lamotrigine 25 Mg Tablet) 150 mg PO BEDTIME RATNA Last Admin: 07/24/25 22:45 Dose: 150 mg Levothyroxine Sodium (Levothyroxine Sodium 75 Mcg Tablet) 75 mcg PO DAILY@0600 [facility] Last Admin: 07/24/25 07:12 Dose: 75 mcg Lidocaine HCl (Lidocaine 4 % Cream Kit) 1 appl TOPICAL ONCE PRN; Protocol PRN Reason: lower back pain Last Admin: 07/16/25 07:05 Dose: 1 appl Lorazepam (Lorazepam 0.5 Mg Tablet) 0.5 mg PO DAILY PRN PRN Reason: severe anxiety Last Admin: 07/24/25 20:54 Dose: 0.5 mg Magnesium Hydroxide (Milk Of Magnesia 30 Ml Oral.Susp) 30 ml PO DAILY PRN PRN Reason: Constipation Multivitamins/Vitamin C (Multivitamin Tablet) 1 tab PO DAILY RATNA Last Admin: 07/24/25 09:19 Dose: 1 tab Nicotine Polacrilex (Nicotine Polacrilex 2 Mg Gum) 4 mg BUCCAL Q2H PRN PRN Reason: Nicotine Cravings Prazosin HCl (Prazosin Hcl 1 Mg Capsule) 2 mg PO BEDTIME RATNA; Protocol Last Admin: 07/24/25 22:44 Dose: 2 mg Quetiapine Fumarate (Quetiapine Fumarate 100 Mg Tablet) 100 mg PO BEDTIME RATNA Last Admin: 07/24/25 22:44 Dose: 100 mg Risperidone (Risperidone 1 Mg Tablet) 1 mg PO DAILY PRN PRN Reason: disorganized behavior Trazodone HCl (Trazodone Hcl 50 Mg Tablet) 50 mg PO BEDTIME MRX1 PRN PRN Reason: Insomnia Allergies Allergies Allergy/AdvReac Type Severity Reaction Status Date / Time No Known Allergies Allergy Verified 06/24/25 17:49 Assessment & Plan Assessment & Plan (1) Schizoaffective disorder, bipolar type: Status: Acute Code(s): F25.0 - Schizoaffective disorder, bipolar type (2) Depression: Status: Acute Code(s): F32.A - Depression, unspecified (3) PTSD (post-traumatic stress disorder): Status: Acute Code(s): F43.10 - Post-traumatic stress disorder, unspecified Plan HPI: Pt is a 40 year old female who presented to the ED after being dropped off by a friend . Upon arrival to the ED she appeared increasingly paranoid and indicated that she was fearful she was being drugged by her and voiced concern for her and her children's safety. Pt stated that she wanted to have her medications checked as things are just off, my daily routine is off . Pt provided inconsistent information as evidence by conflicting information from what she disclosed to the ED provider upon arrival and at times appears to be a poor historian as a result of her current presentation. She remained guarded at this time and at times appeared to be minimizing symptoms as well as medication seeking as she remained primarily focused on her controlled substances that she is currently prescribed. It is to be noted. Formulation/clinical reasoning: Increasing psychotic behaviors, paranoid, disorganized thought process. Family members have safety concern regarding patient mental status at this current time. Even the above information, patient will be benefit in restrictive environment, medication management, and refer patient back to outpatient psychiatric services. Hospital course: 06/25/25: Continue with home medications. In my impression, patient may think that she just come here to get refill of her medication and will be sent home. However, other time she also stating that she has not come here for medication change as if she needs a refilled she can get it feel from her OP provider. Ativan 1 mg q.4 hours p.r.n. for severe anxiety. Home dose was only 0.5 b.i.d. p.r.n.. Stimulants: Continue with stimulants, we will monitor if it causing more psychotic behavior. Questioned if patient overused her Adderall information regarding recent weight lost, and be psychotic. 06/26/2025: Continue to encourage medication adherence and engagement. 06/27: accepting medications and requested prazosin 2mg be restarted 06/28 Patient is a limited historian due to disorganized speech and behavior. Throughout interview patient looking off in the distance, sometimes very latent responses, appearing to be internally preoccupied; frequently not finishing sentences, giving cryptic, vague and frequently unrelated responses to discussion questions. Documentation Engineer introduces himself has a doctor... Patient then asks are you a Dr.? I am not a doctor. I am Daphne... On inquiry about why patient came to the hospital, she replies, with speech latency and in broken sentences I came... I wanted medications reviewed... And wanted a toxicology... The unknown.... Things got a little unhinged... The court room... Domestic stuff. Patient goes on I was looking for my medications at my house... Interviews, talking, trying to survive all the time... The reality of things is unclear to me... Of the events. Documentation Engineer asks for clarification to which patient says, again after significant latency, the court house... I just want my Garrett back... (she later clarifies that the Shirley is a multi tool knife). Patient then started to refer to another patient, saying he wants a tape measure... I have one... I can hang out... There is time and things will be revealed... Whenever thing comes together... Family and judges and worldly stuff.. Documentation Engineer asks about her earlier concern that her is poisoning her... Patient remained silent for awhile and then says I checked my meds... When I went to talk to them... I would like to see the toxicology... My back was sweating.. I was questioning reality generally... There was a 911 call... She then told leader writer she questioned the reality of this conversation but could not clarify further but then some something about getting her red ticket.. Regarding how she got to the hospital, patient said officers came to my house and talked to my kids...my daughter called them...since i was not feeling safe.....i know my very well...it just wasnt a good think going on...i wasn't...no...it got real.....im in survival mode...it started getting scary and dangerous...my was getting a little...red flaggs...it started to be an unsafe situation..he [] was not himself... Patient also said that her best friend Stephanie Holder dropped her off at the hospital; not clear how she got here. Patient gave leader writer permission to talk to Stephanie and also to collect information from her . denies drugs or taking her prescribed medications in excess denies hx manic episodes; yes AH but nothing to be alarmed about... Nurse Note by Karon Arora RN 06/25/25 09:54 - This RN spoke to [facility] regarding the situation that led to being present here in the ER. Per [facility] employee, yesterday there was an argument between the patient and her where both her and her received a crisis consult. Per [facility] employee, patient was originally seen by [facility] crisis and it was determined she could go to respite, however, shortly after, crisis was called back to the home and the patient was sent here to the hospital. When the [facility] employee interviewed the pts 14 year old son, he reports that his mom has been acting really paranoid about things as of recently. (daughter 14yo, Son 11yo) 06/29 Patient remains with psychotic symptoms and said she thinks maybe he[] wants to kill or hurt me... Documentation Engineer inquired and patient kept coming back to the fact that he put her home medications in the wrong pill box compartments... and this is what made her think he is trying to kill her... Patient however was willing to entertain that perhaps this might not be true. However, she is significantly more organized today than she was yesterday, talking in full sentences sticking to the topic at hand. She agrees that yesterday she was feeling much more confused she is thinking more clearly today. Patient's father present who has been meeting with her daily since this admission and who agrees that she is significantly better and headed back towards her regular self. Patient agreed to sign a CV and also agreed to have Vyvanse and bupropion discontinued for now; she also agreed to take risperidone which leader writer explained was hopefully just for few days. IMPRESSION: Patient demonstrating psychotic symptoms, auditory hallucinations, paranoid delusions and disorganized speech and behavior; patient is certainly internally preoccupied. So far collateral reports that patient has no history of psychosis or bipolar disorder. After gathering collateral from patient's and father, both deny any history of psychosis or sukhdeep were similar such episodes. Both speculate patient may have abused prescription medications including Vyvanse (and reports may have used crack cocaine) accounting for triggering this episode. Frequently substance induced psychosis resolves within 1-2 days (though can also persist for 2 or more weeks); however patient has remained on both Vyvanse and Wellbutrin which could prolonged symptoms (as both can increase dopamine). Will hold both Vyvanse and Wellbutrin. Also started risperidone low-dose to help with dopamine blockade. 06/30 Patient remains with paranoid ideation; refused Risperdal. On inquiry patient said she does not think she needs it but leader writer continue to educate patient on medication and she said she would start taking it. Patient with some increase disorganized behaviors today, seen self-dialoguing and responding to internal stimuli at 1 point standing aimlessly in hallway, not moving. Slept only 4 hours -hopefully patient will start taking risperidone 07/01 patient remains with intermittent odd and disorganized behaviors, talking to herself in the wetzel; remains with paranoid ideations however is able to be more logical in conversation and for longer periods of time. Patient's sister visiting who gave history that patient started to a peer to be manic about 5 months ago which correlates to increased Vyvanse dose (hyperactive, rapid speech, little sleep-which patient concurred); patient's sister volunteered that she has schizoaffective disorder and has been on medication which was a surprise to patient but with this news was willing to take Risperdal 07/02 patient doing much better. Patient is more organized in both speech and behavior. Patient did take Risperdal twice yesterday but found it made her tired and did not want it anymore. However she agrees it may have been helpful. Patient for the 1st time able to talk much more logically and accurately about history and shares with leader writer that she has been diagnosed with bipolar disorder in the past and was at 1 point on Seroquel around 400 mg and then stabilized on Lamictal 200 mg. Patient said that she had been doing well for so long that her current psychiatric provider agreed to start peeling away her medications and Seroquel was lowered to 100 mg Lamictal tapered down to 50 mg. This taper coincided with patient being started on stimulant medication for ADHD and her Vyvanse was titrated. Patient agrees that it is very possible that the tapering off of Lamictal (she may have been on only Lamictal and not Seroquel for quite awhile) the titration of a stimulant medication is what triggered manic episode which worsened over the past few weeks and included significant paranoid ideations. Patient agrees to get back on Lamictal which caused no side effects. -remains with paranoid ideations about her but they are less intense and patient more open to reality testing; of note patient's does have schizophrenia 07/05 patient continues to be improved, overall organized in speech and behavior able to discuss diagnosis and treatment appropriately 07/06Patient more disorganized doing bizarre, odd hand movements during interview. Patient mimicking/mirroring the hand gestures of whomever is talking; some echolalia as well. Patient remains very vague when discussing her thoughts. Continues to have some paranoid ideations about her however patient's sister does agree that patient's is excessively controlling and for the past 2 years, the sister has noticed that he dictates how long and with whom patient can spend time. Patient struggles to have insight into her behaviors including when they are pointed out in real-time. However she does agree to start perphenazine\ -had discussed risks/side effects of antipsychotics 07/07 Patient denies any medications side effects. Continues to have disorganized in behaviors and now hiding in the corners of the hallway throughout the milieu; continues to mirror movements of others with intermittent echolalia. Remains very vague on what he is thinking and keeps saying she is just waiting for it to all come together. 07/08 Patient Increasingly disorganized; standing in the corner for hours, peering around it into the milieu, not talking. Patient guarded on approach. Initially refused perphenazine but was willing to discuss it with leader writer and patient said she does not feel like herself and hoped that the medication would help repair that. Patient agreed to increasing perphenazine to 4 mg t.i.d. -regarding diagnosis, patient has past diagnosis of bipolar disorder which reportedly was treated with Lamictal and before that Seroquel. Patient is not particularly manic but is definitely with psychotic symptoms. Will provisionally change diagnosis to schizoaffective disorder 07/09 little better today with increased dose of perphenazine which patient has been taking. She denies medication side effects and agrees that medications are helpful Still odd but less so and seems to be more organized. Still with limited insight but reports she is feeling better and more like herself though can not specifically articulate why. Patient said she had a good talk with her daughter which was helpful; also talked with the telling him she wants to separate which she said was a long time coming -seems that perphenazine is helping; will continue 07/10 Patient agitated on the unit today and yelling in the hallway. Documentation Engineer discussed this with patient who expresses concern about her being with her children. pt says she gave him bad news about their marriage and is worried about his mental state. She says he has had hallucinated/paranoid delusions about their son, a few years ago. Today, she can not say what he did or said that worried her...other than vague references to his composure...reactions...like he's not in touch with reality... But with no specifics...She agrees perhaps he could just be anxious... She also says she believes he has been unmedicated for a long time She then told her leader writer that Juan Miguel [son] talks in code to me, like I asked 'what are you wearing to school today...' and he said 'my pink Allan shirt tomorrow...' but he does not have a pink allan shirt, which means he's talking to me in code... She said this exchange happened the week prior to this admission and that he is talking in code her so his father will not know. Patient then showed leader writer a picture her son made which her brought in for her during this visit; she insisted him doing so was manipulative though leader writer could not understand why; patient showed leader writer a letter her wrote to her which was generally about how he is hoping for her and he wished to get help her. Patient says she thinks it is weird though leader writer could not understand why. After this encounter with her , she l called PD for wellness check on son; check was completed and PD informed her that her son is OK. She signed a 3 day notice 07/11 Patient refuse perphenazine, last night and this morning. Patient barely slept and staff reports she was pacing the wetzel throughout the night. On inquiry patient said that the afternoon dose was making her feel tired; regarding the bedtime dose, she said she just does not want to take this medication and wants to try something different in the same category. Documentation Engineer offered haloperidol with which she agreed. Impression: Patient remains with paranoid ideations and no insight into her own illness. She has some hypomanic behaviors; most of her problematic symptoms have been psychosis so have been focusing on antipsychotic however patient may benefit from traditional mood stabilizer; will continue to titrate Lamictal however this may not be adequate. Will hold Lexapro. -if patient willing will also consider increasing Seroquel at bedtime though concern is it would cause daytime sedation and she would refuse it. 07/12 little more organized, angry at her ; does not want Haldol, saying it makes her too sedated and agreed to Clozaril after reviewing risks/side effects -patient says she will retract her 3 day and stay a little longer 07/13 more odd behaviors today, wandering, sometimes hiding in hallway; other times social with peers. Pt witnessed self-dialouging in bedroom. Agrees to titration of clozapine. Agrees to remain on the unit longer for treatment -when patient takes perphenazine or Haldol, odd behaviors seemed to clear up; currently those have been discontinued and she is on low-dose of clozapine which is being titrated 07/14: Patient reports moderate anxiety. Denies depression. Denies paranoia. Denies SI/HI/AVH. Continue current treatment regimen. 07/15/25: Patient is not active engage in 1-1 assessment, walking the wetzel, asking this provider credential she is not legal . can you open the door? . Report to nurse that she find it helpful to distract her self by using headphone. Told nurse that she tries to have a good day. Appear sad, irritable, preoccupied and appear to be psychotic with mood swing, restless. Per nursing, patient slept for 5 hours, compliant with meds. Continue with current plan. 07/16/25: I am upset every morning and am upset now, but I don't want to talk about it. Team reports pt is upset about needing to be on the unit this weekend. Family meeting on 07/19. Pt allowed brief meeting with tw- discussed Clozapine increase by primary provider in preparation for discharge, she agrees and concurs. Team reports pt slept for ~6.5 hours. Described as anxious, guarded and labile Episodic yelling on the unit, after a telephone call with partner. Sat on the floor in the middle of the milieu, asking her primary RN to pick her up. Was able to get off the floor on her own and meet with leader writer briefly, however, declined to discuss what was bothering her. Denies SI,HI,AH,VH- I am just pissed, you know? No new medical/diagnostic results. Back pain relieved with Ibuprofen Plan: Clozapine to increase to 100 mg tonight per primary provider. 07/17/25: Meet with patient in exam room. Report that anxiety is very high this morning. Says that she does not want to take PRN but she took it and report feeling better. Report trying to use coping skills such as listening to music, doing some art work and talk to staff and try not to explode . Patient is visible, less irritable and more cooperative, not question regarding this provider's capacity and title. Denies SI/SIB/HI/AVH. Can be labile. No medication changes. Per nursing, slept for 6 hours, compliant with meds. Denies side effects. Continue with current treatment plan. 07/18/25: Patient slept for 6 hours, frustrated being here. Increased anxiety this morning and not happy with her . Patient is the wetzel appear to be suspicious at the end of the wetzel, restless. She denies safety concerns, overwhelmed with coming family meeting, restless. Patient was on the phone with her , got very angry and upset, she started being loud talking about her . Able to redirect to talk to this provider in Group room C. Report that her told her she is not allowed to go home if you talk to me that way . Patient reports that her is not reasonable, not wanting to do family counseling regarding their marriage. She called him to just to talk to him in advance to prepare for tomorrow family meeting but at the end getting triggered by Scott . Patient was tearful, sad and irritable talking about her Patient accepted Ativan 1mg x1 to calm her down with good effects. 07/19 Patient remains with psychotic symptoms and remains guarded. Bizarre movements in the milieu. Today however was the 1st time she shared that she does have auditory hallucinations and will here words that at the moment she thinks are in reference to her, but she will around and see no one talking... she has not quite open to reality testing. Patient continues to have paranoid ideations. She remains quite guarded and mostly says I am just waiting for to all come together when asked further about psychotic symptoms. Patient agrees to increasing clozapine. She reports that she is starting to feel quite depressed which she thinks his partly situational, missing her kids but also just a deeper regular depression and she mentions that she has been off her Wellbutrin and Vyvanse and Lexapro. Documentation Engineer discussed the reasons for this and the concern that restarting these too soon could exacerbate symptoms which she accepts and again agrees to increase clozapine; also agrees to continued Lamictal increase 07/20 Patient now back to mirroring various staff; continues with bizarre movements in hallway. Patient opened up a bit more about her thoughts. Regarding mirroring, she at 1st said it was a joke but then she acknowledged that it is not a joke... She shared that she thinks perhaps this admission is all a set up and that this is not a real hospital unit, that this leader writer is not a real doctor and that the staff are all involved in this set up.. She could not explain why such as set up would be occurring and somehow her mirroring Staff is a part of this life. Documentation Engineer attempted reality testing and patient was not opposed to it but says she is not sure if she believes that this leader writer is a real doctor or that this is a real hospital wings; regarding the unit, she says it looks different, it set a part... It is not new... It is not a part of the hospital. Patient agreed to consider that this police might just be her mind playing tricks on her and leader writer reassured her that all of this is in fact real and that she is being treated for in illness. She continues to report AH but remains vague about it. 07/21 remains with paranoid ideations, AH; will continue titrating clozapine 07/24 Impression: Patient remains psychotic with auditory hallucinations and paranoid ideations. While her behaviors themselves (internal preoccupation and self dialoguing; disorganized behaviors) and comments reveal the psychotic process, Up until now she has remained very guarded about sharing them. Patient has little insight, though she remains willing to remain on the unit continue with medication. Patient told leader writer she has has a diagnosis of bipolar disorder and was manic/hypomanic for a few months prior to worsening psychotic symptoms (lowering of mood stabilizer and increasing of Vyvanse seemed to be the trigger); she used to be on Seroquel (400-600mg) but found it too sedating and cause significant weight gain and does not want to increase dose (using it for sleep only). While Patient did have some manic behaviors earlier in admission, it seems that the psychotic symptoms are independent of both sukhdeep and depression as they have been ongoing in between mood episodes and so will continue with diagnosis of schizoaffective disorder, bipolar type (but leave it as provisional dx). Patients severe trauma history is certainly contributory to her anxiety and paranoia. Regarding patient's lack of insight, yesterday she called her 11-year-old son and told him the only reason she is in the hospital was because of his father which significantly upset the son. Currently Patient remains too paranoid about her to adequately discuss her own symptoms and why she ended up hospitalized (though she has some sense that she was getting dysregulated). Patient remains fragile and she remain vulnerable to worsening psychosis or return of manic symptoms; she requires continued medication titration. She has significant paranoid ideations about her and has already lost full access to her children via DCF, and can now only see them when supervised; if she were to discharge now, her ongoing symptoms place her at high risk for further DCF intervention. Given her lack of insight, paranoid ideations towards her and paranoid belief that this admission is a set up Patient is at high risk for unsafe behaviors in the community and requires continued inpatient stay for treatment. Regarding medication management, will continue to titrate clozapine since she is tolerating it and it is helpful for both psychosis and bipolar disorder (including bipolar depression). Would like to restart Wellbutrin for depression however will try to get AH under better control 1st; will hold off on Lexapro until mood stabilizing medications are at therapeutic doses so as not to trigger manic episode. 07/22 Patient remains with paranoid ideations and told leader writer today that she is fully convinced that she is here on the unit as the focal point of a conspiracy with staff and pretend patients all in on it playing a game at her expense. She said she is feeling tired of playing the game and she just not going to right now. Documentation Engineer asked for an example and she said that there was water on the floor which she had to walk around and not get emotionally dysregulated; she explained that the water was purposely but there to test her. Documentation Engineer continued to provide education to the contrary that she is being psychiatrically treated on a true psychiatric unit. It is difficult to tell if patient has some insight in that she needs treatment and medication or if she is accepting treatment/medication as part of playing the game... At any rate she agrees to increase Clozaril. She said she is feeling tired in the morning and so leader writer agreed to try and see if she could tolerate restarting Wellbutrin. -patient expressing depressed feelings and feeling tired in the morning which make sense as she is off both Wellbutrin and Vyvanse; will restart Wellbutrin to help with daytime tiredness and depression at the risk of exacerbating psychotic symptoms. Starting at a low-dose is minimal risk and leader writer considers it worth restarting this medication to avoid patient becoming disinterested in clozapine -retracted 3 day notice 07/23 No change in presentation; patient remains self dialouging. Patient continues to believe the people on the unit are actors part of a set up scheme, pretending to be a psychiatric unit. Patient pointed out different staff that she is unable to tell if they are part of the scheme or not -continue clozapine titration -today started Wellbutrin XL 150 mg since patient complaining of depression and tiredness; hoping that this does not exacerbate psychotic symptoms 07/24/25:Reviewed with team, plan of care reviewed, pt allowed a brief interaction stating she was doing OK and denied current issues or concerns. She is visable in milieu, talkative with select peers, spending a lot of time looking out of the wetzel windows. Team reports she feels we are playing games with her. Approached about this issue-she denied 07/25/25: Team reports pt refused Clozapine last night. Discussed with pt. You know, I woke up feeling like me today. When I take it I feel incoherent, too sedated . Discussed that refusals may increase her in pt time. We agreed to a decrease from 225 to 200 this evening. Plan cv q15 Increased to clozapine 200 mg q.h.s. Started Wellbutrin XL 150 mg daily continue Seroquel 100 at bedtime for sleep (perhaps can eventually get off this and just use clozapine). Increased Lamictal to 150 mg: Used to be on 200 and has been on 50 mg for months BuSpar 15 mg twice a day. HOLD Wellbutrin 300 mg daily: To avoid exacerbating psychotic symptoms HOLD Lexapro 10 mg daily since hypomanic behaviors HOLD Vyvanse DC perphenazine; patient did not want it, saying it made her sedated DC risperidone; patient does not like and patient is improved DC Haldol; said made too sedating P.R.N. Zyprexa 5mg q.4 hours p.r.n. for agitation/psychosis Reason for continued inpatient stay Substantial Risk for: rapid decompensation Time Spent With Patient Time: Total time managing care of this patient today ____ minutes.
[2025-07-25 08:00] VITALS: BP 110/69; PULSE 107; RESP 20; TEMP 36.4; O2SAT 100
[2025-07-25] MEDS: buPROPion HCl XL 150 MG TAB.ER.24H PO (09:59)
[2025-07-25 20:00] VITALS: BP 132/74; PULSE 100; RESP 16; TEMP 36.9; O2SAT 98
[2025-07-25 23:26] VITALS: BP 119/72
[2025-07-26 08:00] VITALS: BP 105/55; PULSE 99; RESP 18; TEMP 36.6; O2SAT 97
[2025-07-26] MEDS: buPROPion HCl XL 150 MG TAB.ER.24H PO (09:20)
[2025-07-26 13:19] LABS: Neut%MD 62.8 %; WBCANC 9.5 X10*3/uL
--- NOTE | 2025-07-26 17:35 | HO.PSYCHPN ---
Subjective Subjective Date of Service: 07/26/25 Reason For Visit: Recurrent major depression with psychosis Interim History: Met with patient; discussed with team; reviewed chart Patient remains fully convinced that this senior grant writer is not a real doctor, the unit does not a real psychiatric unit and that the patients and staff are part of enact, designed to somehow play a game with her of which she is the main character. Patient is clear on this with senior grant writer. [employer] again attempted reality testing clearly discussing her illness and treatment for; she does not necessarily disagree but it is difficult to know her level of insight into her own illness. Mental Status Exam Mental Status Exam Narrative: Pt is alert and oriented; behavior remains intermittently odd, making odd movements with her hands in the hallway, intermittently mirroring staffs movements; also able to socialize, but often stands in the wetzel, peering around corner; self-dialoguing; remains guarded and superficial but is also cooperative and friendly on approach; patient is not in distress; dressed in casual attire with adequate grooming and hygiene; mood is described as good and affect varies from being constricted, to anxious to furtive and sometimes smiling and bright; eye contact appropriate; Speech is normal rate, volume and prosody and not pressured; intermittent psychomotor agitation present; thought process a little more linear; Thought content is on paranoid ideations; denies any SI/HI. +AH and pt intermittently internally preoccupied. Patients insight and judgment impaired Diagnostics Vital Signs (24Hr): Vital Signs - 24 hr 07/25/25 20:00 07/25/25 23:26 07/26/25 08:00 Temperature 98.4 F 97.8 F Pulse Rate 100 99 Respiratory Rate 16 18 Blood Pressure 132/74 119/72 105/55 L Pulse Oximetry 98 97 Oxygen Delivery Method Room Air Room Air BMI result Body Mass Index 23.0 Labs 06/30/25 07:49 06/30/25 07:49 Labs: Laboratory Results - last 48 hr 07/26/25 12:57 Absolute Neuts (auto) 5.9 Medications Medications Current Medications Acetaminophen (Acetaminophen 325 Mg Tablet) 650 mg PO Q6H PRN PRN Reason: Headache/Pain, Scale 1-10 Last Admin: 07/25/25 10:00 Dose: 650 mg Al Hydroxide/Mg Hydroxide (Magnesium Hydrox/Alum Hydrox 30 Ml Oral.Susp) 30 ml PO Q6H PRN PRN Reason: Heartburn/Nausea Bupropion HCl (Bupropion Hcl Xl 150 Mg Tab.Er.24h) 150 mg PO DAILY [facility] Last Admin: 07/26/25 09:20 Dose: 150 mg Buspirone HCl (Buspirone Hcl 5 Mg Tablet) 15 mg PO BID [facility] Last Admin: 07/26/25 09:20 Dose: 15 mg Clozapine 200 mg/ Clozapine 25 (mg) 225 mg PO BEDTIME [facility] Cyclobenzaprine HCl (Cyclobenzaprine Hcl 10 Mg Tablet) 10 mg PO TID PRN PRN Reason: Muscle Spasm Last Admin: 07/26/25 17:00 Dose: 10 mg Fluticasone Propionate (Fluticasone Propionate Nasal 16 Gm [place]) 1 spray NOSTRIL-B BID PRN PRN Reason: sinus congestion Last Admin: 07/21/25 15:57 Dose: 1 spray Hydroxyzine HCl (Hydroxyzine Hcl 25 Mg Tablet) 25 mg PO Q6H PRN PRN Reason: mild anxiety Last Admin: 07/23/25 17:12 Dose: 25 mg Ibuprofen (Ibuprofen 600 Mg Tablet) 600 mg PO Q6H PRN PRN Reason: Pain, Severe (Pain Scale 7-10) Last Admin: 07/26/25 17:00 Dose: 600 mg Lamotrigine (Lamotrigine 25 Mg Tablet) 150 mg PO BEDTIME [facility] Last Admin: 07/25/25 23:26 Dose: 150 mg Levothyroxine Sodium (Levothyroxine Sodium 75 Mcg Tablet) 75 mcg PO DAILY@0600 [facility] Last Admin: 07/26/25 07:08 Dose: 75 mcg Lidocaine HCl (Lidocaine 4 % Cream Kit) 1 appl TOPICAL ONCE PRN; Protocol PRN Reason: lower back pain Last Admin: 07/16/25 07:05 Dose: 1 appl Lorazepam (Lorazepam 0.5 Mg Tablet) 0.5 mg PO DAILY PRN PRN Reason: severe anxiety Last Admin: 07/26/25 10:54 Dose: 0.5 mg Magnesium Hydroxide (Milk Of Magnesia 30 Ml Oral.Susp) 30 ml PO DAILY PRN PRN Reason: Constipation Multivitamins/Vitamin C (Multivitamin Tablet) 1 tab PO DAILY [facility] Last Admin: 07/26/25 09:20 Dose: 1 tab Nicotine Polacrilex (Nicotine Polacrilex 2 Mg Gum) 4 mg BUCCAL Q2H PRN PRN Reason: Nicotine Cravings Prazosin HCl (Prazosin Hcl 1 Mg Capsule) 2 mg PO BEDTIME [facility]; Protocol Last Admin: 07/25/25 23:26 Dose: 2 mg Quetiapine Fumarate (Quetiapine Fumarate 100 Mg Tablet) 100 mg PO BEDTIME [facility] Last Admin: 07/25/25 23:27 Dose: 100 mg Risperidone (Risperidone 1 Mg Tablet) 1 mg PO DAILY PRN PRN Reason: disorganized behavior Trazodone HCl (Trazodone Hcl 50 Mg Tablet) 50 mg PO BEDTIME MRX1 PRN PRN Reason: Insomnia Allergies Allergies Allergy/AdvReac Type Severity Reaction Status Date / Time No Known Allergies Allergy Verified 06/24/25 17:49 Assessment & Plan Assessment & Plan (1) Schizoaffective disorder, bipolar type: Status: Acute Code(s): F25.0 - Schizoaffective disorder, bipolar type (2) Depression: Status: Acute Code(s): F32.A - Depression, unspecified (3) PTSD (post-traumatic stress disorder): Status: Acute Code(s): F43.10 - Post-traumatic stress disorder, unspecified Plan HPI: Pt is a 40 year old female who presented to the ED after being dropped off by a friend . Upon arrival to the ED she appeared increasingly paranoid and indicated that she was fearful she was being drugged by her and voiced concern for her and her children's safety. Pt stated that she wanted to have her medications checked as things are just off, my daily routine is off . Pt provided inconsistent information as evidence by conflicting information from what she disclosed to the ED provider upon arrival and at times appears to be a poor historian as a result of her current presentation. She remained guarded at this time and at times appeared to be minimizing symptoms as well as medication seeking as she remained primarily focused on her controlled substances that she is currently prescribed. It is to be noted. Formulation/clinical reasoning: Increasing psychotic behaviors, paranoid, disorganized thought process. Family members have safety concern regarding patient mental status at this current time. Even the above information, patient will be benefit in restrictive environment, medication management, and refer patient back to outpatient psychiatric services. Hospital course: 06/25/25: Continue with home medications. In my impression, patient may think that she just come here to get refill of her medication and will be sent home. However, other time she also stating that she has not come here for medication change as if she needs a refilled she can get it feel from her OP provider. Ativan 1 mg q.4 hours p.r.n. for severe anxiety. Home dose was only 0.5 b.i.d. p.r.n.. Stimulants: Continue with stimulants, we will monitor if it causing more psychotic behavior. Questioned if patient overused her Adderall information regarding recent weight lost, and be psychotic. 06/26/2025: Continue to encourage medication adherence and engagement. 06/27: accepting medications and requested prazosin 2mg be restarted 06/28 Patient is a limited historian due to disorganized speech and behavior. Throughout interview patient looking off in the distance, sometimes very latent responses, appearing to be internally preoccupied; frequently not finishing sentences, giving cryptic, vague and frequently unrelated responses to discussion questions. [employer] introduces himself has a doctor... Patient then asks are you a Dr.? I am not a doctor. I am Daphne... On inquiry about why patient came to the hospital, she replies, with speech latency and in broken sentences I came... I wanted medications reviewed... And wanted a toxicology... The unknown.... Things got a little unhinged... The court room... Domestic stuff. Patient goes on I was looking for my medications at my house... Interviews, talking, trying to survive all the time... The reality of things is unclear to me... Of the events. [employer] asks for clarification to which patient says, again after significant latency, the court house... I just want my Garrett back... (she later clarifies that the Garrett is a multi tool knife). Patient then started to refer to another patient, saying he wants a tape measure... I have one... I can hang out... There is time and things will be revealed... Whenever thing comes together... Family and judges and worldly stuff.. [employer] asks about her earlier concern that her is poisoning her... Patient remained silent for awhile and then says I checked my meds... When I went to talk to them... I would like to see the toxicology... My back was sweating.. I was questioning reality generally... There was a 911 call... She then told senior grant writer she questioned the reality of this conversation but could not clarify further but then some something about getting her red ticket.. Regarding how she got to the hospital, patient said officers came to my house and talked to my kids...my daughter called them...since i was not feeling safe.....i know my very well...it just wasnt a good think going on...i wasn't...no...it got real.....im in survival mode...it started getting scary and dangerous...my was getting a little...red flaggs...it started to be an unsafe situation..he [] was not himself... Patient also said that her best friend Stephanie Holder dropped her off at the hospital; not clear how she got here. Patient gave senior grant writer permission to talk to Stephanie and also to collect information from her . denies drugs or taking her prescribed medications in excess denies hx manic episodes; yes AH but nothing to be alarmed about... Nurse Note by Karon Arora RN 06/25/25 09:54 - This RN spoke to [facility] regarding the situation that led to being present here in the ER. Per [facility] employee, yesterday there was an argument between the patient and her where both her and her received a crisis consult. Per [facility] employee, patient was originally seen by [facility] crisis and it was determined she could go to respite, however, shortly after, crisis was called back to the home and the patient was sent here to the hospital. When the [facility] employee interviewed the pts 14 year old son, he reports that his mom has been acting really paranoid about things as of recently. (daughter 14yo, Son 11yo) 06/29 Patient remains with psychotic symptoms and said she thinks maybe he[] wants to kill or hurt me... Super[employer] inquired and patient kept coming back to the fact that he put her home medications in the wrong pill box compartments... and this is what made her think he is trying to kill her... Patient however was willing to entertain that perhaps this might not be true. However, she is significantly more organized today than she was yesterday, talking in full sentences sticking to the topic at hand. She agrees that yesterday she was feeling much more confused she is thinking more clearly today. Patient's father present who has been meeting with her daily since this admission and who agrees that she is significantly better and headed back towards her regular self. Patient agreed to sign a CV and also agreed to have Vyvanse and bupropion discontinued for now; she also agreed to take risperidone which senior grant writer explained was hopefully just for few days. IMPRESSION: Patient demonstrating psychotic symptoms, auditory hallucinations, paranoid delusions and disorganized speech and behavior; patient is certainly internally preoccupied. So far collateral reports that patient has no history of psychosis or bipolar disorder. After gathering collateral from patient's and father, both deny any history of psychosis or sukhdeep were similar such episodes. Both speculate patient may have abused prescription medications including Vyvanse (and reports may have used crack cocaine) accounting for triggering this episode. Frequently substance induced psychosis resolves within 1-2 days (though can also persist for 2 or more weeks); however patient has remained on both Vyvanse and Wellbutrin which could prolonged symptoms (as both can increase dopamine). Will hold both Vyvanse and Wellbutrin. Also started risperidone low-dose to help with dopamine blockade. 06/30 Patient remains with paranoid ideation; refused Risperdal. On inquiry patient said she does not think she needs it but senior grant writer continue to educate patient on medication and she said she would start taking it. Patient with some increase disorganized behaviors today, seen self-dialoguing and responding to internal stimuli at 1 point standing aimlessly in hallway, not moving. Slept only 4 hours -hopefully patient will start taking risperidone 07/01 patient remains with intermittent odd and disorganized behaviors, talking to herself in the wetzel; remains with paranoid ideations however is able to be more logical in conversation and for longer periods of time. Patient's sister visiting who gave history that patient started to a peer to be manic about 5 months ago which correlates to increased Vyvanse dose (hyperactive, rapid speech, little sleep-which patient concurred); patient's sister volunteered that she has schizoaffective disorder and has been on medication which was a surprise to patient but with this news was willing to take Risperdal 07/02 patient doing much better. Patient is more organized in both speech and behavior. Patient did take Risperdal twice yesterday but found it made her tired and did not want it anymore. However she agrees it may have been helpful. Patient for the 1st time able to talk much more logically and accurately about history and shares with senior grant writer that she has been diagnosed with bipolar disorder in the past and was at 1 point on Seroquel around 400 mg and then stabilized on Lamictal 200 mg. Patient said that she had been doing well for so long that her current psychiatric provider agreed to start peeling away her medications and Seroquel was lowered to 100 mg Lamictal tapered down to 50 mg. This taper coincided with patient being started on stimulant medication for ADHD and her Vyvanse was titrated. Patient agrees that it is very possible that the tapering off of Lamictal (she may have been on only Lamictal and not Seroquel for quite awhile) the titration of a stimulant medication is what triggered manic episode which worsened over the past few weeks and included significant paranoid ideations. Patient agrees to get back on Lamictal which caused no side effects. -remains with paranoid ideations about her but they are less intense and patient more open to reality testing; of note patient's does have schizophrenia 07/05 patient continues to be improved, overall organized in speech and behavior able to discuss diagnosis and treatment appropriately 07/06Patient more disorganized doing bizarre, odd hand movements during interview. Patient mimicking/mirroring the hand gestures of whomever is talking; some echolalia as well. Patient remains very vague when discussing her thoughts. Continues to have some paranoid ideations about her however patient's sister does agree that patient's is excessively controlling and for the past 2 years, the sister has noticed that he dictates how long and with whom patient can spend time. Patient struggles to have insight into her behaviors including when they are pointed out in real-time. However she does agree to start perphenazine\ -had discussed risks/side effects of antipsychotics 07/07 Patient denies any medications side effects. Continues to have disorganized in behaviors and now hiding in the corners of the hallway throughout the milieu; continues to mirror movements of others with intermittent echolalia. Remains very vague on what he is thinking and keeps saying she is just waiting for it to all come together. 07/08 Patient Increasingly disorganized; standing in the corner for hours, peering around it into the milieu, not talking. Patient guarded on approach. Initially refused perphenazine but was willing to discuss it with senior grant writer and patient said she does not feel like herself and hoped that the medication would help repair that. Patient agreed to increasing perphenazine to 4 mg t.i.d. -regarding diagnosis, patient has past diagnosis of bipolar disorder which reportedly was treated with Lamictal and before that Seroquel. Patient is not particularly manic but is definitely with psychotic symptoms. Will provisionally change diagnosis to schizoaffective disorder 07/09 little better today with increased dose of perphenazine which patient has been taking. She denies medication side effects and agrees that medications are helpful Still odd but less so and seems to be more organized. Still with limited insight but reports she is feeling better and more like herself though can not specifically articulate why. Patient said she had a good talk with her daughter which was helpful; also talked with the telling him she wants to separate which she said was a long time coming -seems that perphenazine is helping; will continue 07/10 Patient agitated on the unit today and yelling in the hallway. [employer] discussed this with patient who expresses concern about her being with her children. pt says she gave him bad news about their marriage and is worried about his mental state. She says he has had hallucinated/paranoid delusions about their son, a few years ago. Today, she can not say what he did or said that worried her...other than vague references to his composure...reactions...like he's not in touch with reality... But with no specifics...She agrees perhaps he could just be anxious... She also says she believes he has been unmedicated for a long time She then told her senior grant writer that Juan Miguel [son] talks in code to me, like I asked 'what are you wearing to school today...' and he said 'my pink Allan shirt tomorrow...' but he does not have a pink allan shirt, which means he's talking to me in code... She said this exchange happened the week prior to this admission and that he is talking in code her so his father will not know. Patient then showed senior grant writer a picture her son made which her brought in for her during this visit; she insisted him doing so was manipulative though senior grant writer could not understand why; patient showed senior grant writer a letter her wrote to her which was generally about how he is hoping for her and he wished to get help her. Patient says she thinks it is weird though senior grant writer could not understand why. After this encounter with her , she l called PD for wellness check on son; check was completed and PD informed her that her son is OK. She signed a 3 day notice 07/11 Patient refuse perphenazine, last night and this morning. Patient barely slept and staff reports she was pacing the wetzel throughout the night. On inquiry patient said that the afternoon dose was making her feel tired; regarding the bedtime dose, she said she just does not want to take this medication and wants to try something different in the same category. Super[employer] offered haloperidol with which she agreed. Impression: Patient remains with paranoid ideations and no insight into her own illness. She has some hypomanic behaviors; most of her problematic symptoms have been psychosis so have been focusing on antipsychotic however patient may benefit from traditional mood stabilizer; will continue to titrate Lamictal however this may not be adequate. Will hold Lexapro. -if patient willing will also consider increasing Seroquel at bedtime though concern is it would cause daytime sedation and she would refuse it. 07/12 little more organized, angry at her ; does not want Haldol, saying it makes her too sedated and agreed to Clozaril after reviewing risks/side effects -patient says she will retract her 3 day and stay a little longer 07/13 more odd behaviors today, wandering, sometimes hiding in hallway; other times social with peers. Pt witnessed self-dialouging in bedroom. Agrees to titration of clozapine. Agrees to remain on the unit longer for treatment -when patient takes perphenazine or Haldol, odd behaviors seemed to clear up; currently those have been discontinued and she is on low-dose of clozapine which is being titrated 07/14: Patient reports moderate anxiety. Denies depression. Denies paranoia. Denies SI/HI/AVH. Continue current treatment regimen. 07/15/25: Patient is not active engage in 1-1 assessment, walking the wetzel, asking this provider credential she is not legal . can you open the door? . Report to nurse that she find it helpful to distract her self by using headphone. Told nurse that she tries to have a good day. Appear sad, irritable, preoccupied and appear to be psychotic with mood swing, restless. Per nursing, patient slept for 5 hours, compliant with meds. Continue with current plan. 07/16/25: I am upset every morning and am upset now, but I don't want to talk about it. Team reports pt is upset about needing to be on the unit this weekend. Family meeting on 07/19. Pt allowed brief meeting with tw- discussed Clozapine increase by primary provider in preparation for discharge, she agrees and concurs. Team reports pt slept for ~6.5 hours. Described as anxious, guarded and labile Episodic yelling on the unit, after a telephone call with partner. Sat on the floor in the middle of the milieu, asking her primary RN to pick her up. Was able to get off the floor on her own and meet with senior grant writer briefly, however, declined to discuss what was bothering her. Denies SI,HI,AH,VH- I am just pissed, you know? No new medical/diagnostic results. Back pain relieved with Ibuprofen Plan: Clozapine to increase to 100 mg tonight per primary provider. 07/17/25: Meet with patient in exam room. Report that anxiety is very high this morning. Says that she does not want to take PRN but she took it and report feeling better. Report trying to use coping skills such as listening to music, doing some art work and talk to staff and try not to explode . Patient is visible, less irritable and more cooperative, not question regarding this provider's capacity and title. Denies SI/SIB/HI/AVH. Can be labile. No medication changes. Per nursing, slept for 6 hours, compliant with meds. Denies side effects. Continue with current treatment plan. 07/18/25: Patient slept for 6 hours, frustrated being here. Increased anxiety this morning and not happy with her . Patient is the wetzel appear to be suspicious at the end of the wetzel, restless. She denies safety concerns, overwhelmed with coming family meeting, restless. Patient was on the phone with her , got very angry and upset, she started being loud talking about her . Able to redirect to talk to this provider in Group room C. Report that her told her she is not allowed to go home if you talk to me that way . Patient reports that her is not reasonable, not wanting to do family counseling regarding their marriage. She called him to just to talk to him in advance to prepare for tomorrow family meeting but at the end getting triggered by Scott . Patient was tearful, sad and irritable talking about her Patient accepted Ativan 1mg x1 to calm her down with good effects. 07/19 Patient remains with psychotic symptoms and remains guarded. Bizarre movements in the milieu. Today however was the 1st time she shared that she does have auditory hallucinations and will here words that at the moment she thinks are in reference to her, but she will around and see no one talking... she has not quite open to reality testing. Patient continues to have paranoid ideations. She remains quite guarded and mostly says I am just waiting for to all come together when asked further about psychotic symptoms. Patient agrees to increasing clozapine. She reports that she is starting to feel quite depressed which she thinks his partly situational, missing her kids but also just a deeper regular depression and she mentions that she has been off her Wellbutrin and Vyvanse and Lexapro. [employer] discussed the reasons for this and the concern that restarting these too soon could exacerbate symptoms which she accepts and again agrees to increase clozapine; also agrees to continued Lamictal increase 07/20 Patient now back to mirroring various staff; continues with bizarre movements in hallway. Patient opened up a bit more about her thoughts. Regarding mirroring, she at 1st said it was a joke but then she acknowledged that it is not a joke... She shared that she thinks perhaps this admission is all a set up and that this is not a real hospital unit, that this senior grant writer is not a real doctor and that the staff are all involved in this set up.. She could not explain why such as set up would be occurring and somehow her mirroring Staff is a part of this life. [employer] attempted reality testing and patient was not opposed to it but says she is not sure if she believes that this senior grant writer is a real doctor or that this is a real hospital wings; regarding the unit, she says it looks different, it set a part... It is not new... It is not a part of the hospital. Patient agreed to consider that this police might just be her mind playing tricks on her and senior grant writer reassured her that all of this is in fact real and that she is being treated for in illness. She continues to report AH but remains vague about it. 07/21 remains with paranoid ideations, AH; will continue titrating clozapine 07/24 Impression: Patient remains psychotic with auditory hallucinations and paranoid ideations. While her behaviors themselves (internal preoccupation and self dialoguing; disorganized behaviors) and comments reveal the psychotic process, Up until now she has remained very guarded about sharing them. Patient has little insight, though she remains willing to remain on the unit continue with medication. Patient told senior grant writer she has has a diagnosis of bipolar disorder and was manic/hypomanic for a few months prior to worsening psychotic symptoms (lowering of mood stabilizer and increasing of Vyvanse seemed to be the trigger); she used to be on Seroquel (400-600mg) but found it too sedating and cause significant weight gain and does not want to increase dose (using it for sleep only). While Patient did have some manic behaviors earlier in admission, it seems that the psychotic symptoms are independent of both sukhdeep and depression as they have been ongoing in between mood episodes and so will continue with diagnosis of schizoaffective disorder, bipolar type (but leave it as provisional dx). Patients severe trauma history is certainly contributory to her anxiety and paranoia. Regarding patient's lack of insight, yesterday she called her 11-year-old son and told him the only reason she is in the hospital was because of his father which significantly upset the son. Currently Patient remains too paranoid about her to adequately discuss her own symptoms and why she ended up hospitalized (though she has some sense that she was getting dysregulated). Patient remains fragile and she remain vulnerable to worsening psychosis or return of manic symptoms; she requires continued medication titration. She has significant paranoid ideations about her and has already lost full access to her children via DCF, and can now only see them when supervised; if she were to discharge now, her ongoing symptoms place her at high risk for further DCF intervention. Given her lack of insight, paranoid ideations towards her and paranoid belief that this admission is a set up Patient is at high risk for unsafe behaviors in the community and requires continued inpatient stay for treatment. Regarding medication management, will continue to titrate clozapine since she is tolerating it and it is helpful for both psychosis and bipolar disorder (including bipolar depression). Would like to restart Wellbutrin for depression however will try to get AH under better control 1st; will hold off on Lexapro until mood stabilizing medications are at therapeutic doses so as not to trigger manic episode. 07/22 Patient remains with paranoid ideations and told senior grant writer today that she is fully convinced that she is here on the unit as the focal point of a conspiracy with staff and pretend patients all in on it playing a game at her expense. She said she is feeling tired of playing the game and she just not going to right now. [employer] asked for an example and she said that there was water on the floor which she had to walk around and not get emotionally dysregulated; she explained that the water was purposely but there to test her. [employer] continued to provide education to the contrary that she is being psychiatrically treated on a true psychiatric unit. It is difficult to tell if patient has some insight in that she needs treatment and medication or if she is accepting treatment/medication as part of playing the game... At any rate she agrees to increase Clozaril. She said she is feeling tired in the morning and so senior grant writer agreed to try and see if she could tolerate restarting Wellbutrin. -patient expressing depressed feelings and feeling tired in the morning which make sense as she is off both Wellbutrin and Vyvanse; will restart Wellbutrin to help with daytime tiredness and depression at the risk of exacerbating psychotic symptoms. Starting at a low-dose is minimal risk and senior grant writer considers it worth restarting this medication to avoid patient becoming disinterested in clozapine -retracted 3 day notice 07/23 No change in presentation; patient remains self dialouging. Patient continues to believe the people on the unit are actors part of a set up scheme, pretending to be a psychiatric unit. Patient pointed out different staff that she is unable to tell if they are part of the scheme or not -continue clozapine titration -today started Wellbutrin XL 150 mg since patient complaining of depression and tiredness; hoping that this does not exacerbate psychotic symptoms 07/24/25:Reviewed with team, plan of care reviewed, pt allowed a brief interaction stating she was doing OK and denied current issues or concerns. She is visable in milieu, talkative with select peers, spending a lot of time looking out of the wetzel windows. Team reports she feels we are playing games with her. Approached about this issue-she denied 07/25/25: Team reports pt refused Clozapine last night. Discussed with pt. You know, I woke up feeling like me today. When I take it I feel incoherent, too sedated . Discussed that refusals may increase her in pt time. We agreed to a decrease from 225 to 200 this evening. 07/26 Patient remains fully convinced that this senior grant writer is not a real doctor, the unit does not a real psychiatric unit and that the patients and staff are part of [employer], designed to somehow play a game with her of which she is the main character. Patient is clear on this with senior grant writer. [employer] again attempted reality testing clearly discussing her illness and treatment for; she does not necessarily disagree but it is difficult to know her level of insight into her own illness. [employer] discussed the the significant concern were she to discharge now and patient agrees to remain on the unit and continue with treatment -over the weekend, she refused clozapine on Saturday; however she said she will continue taking it Plan cv q15 Increased to clozapine 225 mg q.h.s. Started Wellbutrin XL 150 mg daily continue Seroquel 100 at bedtime for sleep (perhaps can eventually get off this and just use clozapine). Increased Lamictal to 150 mg: Used to be on 200 and has been on 50 mg for months BuSpar 15 mg twice a day. HOLD Wellbutrin 300 mg daily: To avoid exacerbating psychotic symptoms HOLD Lexapro 10 mg daily since hypomanic behaviors HOLD Vyvanse DC perphenazine; patient did not want it, saying it made her sedated DC risperidone; patient does not like and patient is improved DC Haldol; said made too sedating P.R.N. Zyprexa 5mg q.4 hours p.r.n. for agitation/psychosis Patient educated on: diagnosis, medication risk/benefits and therapeutic strategies Informed Consent: understands, does not understand and further education needed Reason for continued inpatient stay Substantial Risk for: inability to function Time Spent With Patient Time: Total time managing care of this patient today ____ minutes.
[2025-07-26 20:00] VITALS: BP 108/83; PULSE 111; RESP 16; TEMP 36.8; O2SAT 99
[2025-07-26 22:18] VITALS: BP 130/80
--- NOTE | 2025-07-27 00:09 | PC.NURSE ---
Pt refused HS Clozapine 250mg @2100.
[2025-07-27 03:59] LABS: Syphilis Screen Nonreactive (Nonreactive)
[2025-07-27 08:00] VITALS: BP 131/58; PULSE 105; RESP 16; TEMP 36.4; O2SAT 100
[2025-07-27] MEDS: buPROPion HCl XL 150 MG TAB.ER.24H PO (09:33)
--- NOTE | 2025-07-27 10:52 | P.PNPSI_ITS ---
Subjective Subjective Date of Service: 07/27/25 Reason For Visit: Recurrent major depression with psychosis Subjective Notes: Mitchell Warning (given again on 07/27/25) Interim History: Met with patient; discussed with team Patient refused Clozaril last night and tells contract technical writer she has done taking it. She says that makes her a little tired though she has not complained of this for the past several days. Patient says she will take something else and contract technical writer offers Vraylar. Patient continues to explained to contract technical writer that she remains convinced that while this contract technical writer may or may not be a real doctor, that the entire admission, unit and actor-patients are are acting this is a part of a big experiment and she is being experimented on; she is not sure who is orchestrating this, someone powerful and with a big mind. She thinks maybe she has the focus of the experiment since she has been through many things in her life. Helicopter Engineer tries to discuss her own psychiatric symptoms and patient acknowledges some history but does not think she has any paranoid ideations at all. agrees she does not need pain meds and pain is not bad Mental Status Exam Mental Status Exam Narrative: Pt is alert and oriented; behavior is guarded; intermittently odd, making odd movements with her hands in the hallway; also able to socialize, and interact appropriately with peers; self-dialoguing; remains guarded and superficial but is also cooperative and friendly on approach; patient is not in distress; dressed in casual attire with adequate grooming and hygiene; mood is described as ok and affect varies from being constricted, to anxious to furtive and sometimes smiling and bright; eye contact appropriate; Speech is normal rate, volume and prosody and not pressured; intermittent psychomotor agitation present; thought process is mostly linear; Thought content is on paranoid ideations; denies any SI/HI. +AH and pt intermittently internally preoccupied. Patients insight and judgment impaired Diagnostics Vital Signs (24Hr): Vital Signs - 24 hr 07/26/25 20:00 07/26/25 22:18 07/27/25 08:00 Temperature 98.2 F 97.5 F Pulse Rate 111 H 105 H Respiratory Rate 16 16 Blood Pressure 108/83 130/80 131/58 L Pulse Oximetry 99 100 Oxygen Delivery Method Room Air Room Air BMI result Body Mass Index 23.0 Labs 06/30/25 07:49 06/30/25 07:49 Labs: Laboratory Results - last 48 hr 07/26/25 12:57 Absolute Neuts (auto) 5.9 T.pallidum Ab (EIA) Nonreactive Medications Medications Current Medications Acetaminophen (Acetaminophen 325 Mg Tablet) 650 mg PO Q6H PRN PRN Reason: Headache/Pain, Scale 1-10 Last Admin: 07/25/25 10:00 Dose: 650 mg Al Hydroxide/Mg Hydroxide (Magnesium Hydrox/Alum Hydrox 30 Ml Oral.Susp) 30 ml PO Q6H PRN PRN Reason: Heartburn/Nausea Bupropion HCl (Bupropion Hcl Xl 150 Mg Tab.Er.24h) 150 mg PO DAILY [facility] Last Admin: 07/27/25 09:33 Dose: 150 mg Buspirone HCl (Buspirone Hcl 5 Mg Tablet) 15 mg PO BID [facility] Last Admin: 07/27/25 09:33 Dose: 15 mg Clozapine 200 mg/ Clozapine 25 (mg) 225 mg PO BEDTIME [facility] [place] Last Admin: 07/26/25 22:21 Dose: Not Given Cyclobenzaprine HCl (Cyclobenzaprine Hcl 10 Mg Tablet) 10 mg PO TID PRN PRN Reason: Muscle Spasm Last Admin: 07/26/25 17:00 Dose: 10 mg Fluticasone Propionate (Fluticasone Propionate Nasal 16 Gm Ewing) 1 spray NOSTRIL-B BID PRN PRN Reason: sinus congestion Last Admin: 07/21/25 15:57 Dose: 1 spray Hydroxyzine HCl (Hydroxyzine Hcl 25 Mg Tablet) 25 mg PO Q6H PRN PRN Reason: mild anxiety Last Admin: 07/23/25 17:12 Dose: 25 mg Ibuprofen (Ibuprofen 600 Mg Tablet) 600 mg PO Q6H PRN PRN Reason: Pain, Severe (Pain Scale 7-10) Last Admin: 07/26/25 17:00 Dose: 600 mg Lamotrigine (Lamotrigine 25 Mg Tablet) 175 mg PO BEDTIME RATNA Last Admin: 07/26/25 22:16 Dose: 175 mg Levothyroxine Sodium (Levothyroxine Sodium 75 Mcg Tablet) 75 mcg PO DAILY@0600 [facility] [place] Last Admin: 07/27/25 06:33 Dose: 75 mcg Lidocaine HCl (Lidocaine 4 % Cream Kit) 1 appl TOPICAL ONCE PRN; Protocol PRN Reason: lower back pain Last Admin: 07/16/25 07:05 Dose: 1 appl Lorazepam (Lorazepam 0.5 Mg Tablet) 0.5 mg PO DAILY PRN PRN Reason: severe anxiety Last Admin: 07/26/25 10:54 Dose: 0.5 mg Magnesium Hydroxide (Milk Of Magnesia 30 Ml Oral.Susp) 30 ml PO DAILY PRN PRN Reason: Constipation Multivitamins/Vitamin C (Multivitamin Tablet) 1 tab PO DAILY RATNA Last Admin: 07/27/25 09:33 Dose: 1 tab Nicotine Polacrilex (Nicotine Polacrilex 2 Mg Gum) 4 mg BUCCAL Q2H PRN PRN Reason: Nicotine Cravings Prazosin HCl (Prazosin Hcl 1 Mg Capsule) 2 mg PO BEDTIME RATNA; Protocol Last Admin: 07/26/25 22:18 Dose: 2 mg Quetiapine Fumarate (Quetiapine Fumarate 100 Mg Tablet) 100 mg PO BEDTIME RATNA Last Admin: 07/26/25 22:18 Dose: 100 mg Risperidone (Risperidone 1 Mg Tablet) 1 mg PO DAILY PRN PRN Reason: disorganized behavior Trazodone HCl (Trazodone Hcl 50 Mg Tablet) 50 mg PO BEDTIME MRX1 PRN PRN Reason: Insomnia Allergies Allergies Allergy/AdvReac Type Severity Reaction Status Date / Time No Known Allergies Allergy Verified 06/24/25 17:49 Assessment & Plan Assessment & Plan (1) Schizoaffective disorder, bipolar type: Status: Acute Code(s): F25.0 - Schizoaffective disorder, bipolar type (2) Depression: Status: Acute Code(s): F32.A - Depression, unspecified (3) PTSD (post-traumatic stress disorder): Status: Acute Code(s): F43.10 - Post-traumatic stress disorder, unspecified Plan HPI: Pt is a 40 year old female who presented to the ED after being dropped off by a friend . Upon arrival to the ED she appeared increasingly paranoid and indicated that she was fearful she was being drugged by her and voiced concern for her and her children's safety. Pt stated that she wanted to have her medications checked as things are just off, my daily routine is off . Pt provided inconsistent information as evidence by conflicting information from what she disclosed to the ED provider upon arrival and at times appears to be a poor historian as a result of her current presentation. She remained guarded at this time and at times appeared to be minimizing symptoms as well as medication seeking as she remained primarily focused on her controlled substances that she is currently prescribed. It is to be noted. Formulation/clinical reasoning: Increasing psychotic behaviors, paranoid, disorganized thought process. Family members have safety concern regarding patient mental status at this current time. Even the above information, patient will be benefit in restrictive environment, medication management, and refer patient back to outpatient psychiatric services. Hospital course: 06/25/25: Continue with home medications. In my impression, patient may think that she just come here to get refill of her medication and will be sent home. However, other time she also stating that she has not come here for medication change as if she needs a refilled she can get it feel from her OP provider. Ativan 1 mg q.4 hours p.r.n. for severe anxiety. Home dose was only 0.5 b.i.d. p.r.n.. Stimulants: Continue with stimulants, we will monitor if it causing more psychotic behavior. Questioned if patient overused her Adderall information regarding recent weight lost, and be psychotic. 06/26/2025: Continue to encourage medication adherence and engagement. 06/27: accepting medications and requested prazosin 2mg be restarted 06/28 Patient is a limited historian due to disorganized speech and behavior. Throughout interview patient looking off in the distance, sometimes very latent responses, appearing to be internally preoccupied; frequently not finishing sentences, giving cryptic, vague and frequently unrelated responses to discussion questions. Helicopter Engineer introduces himself has a doctor... Patient then asks are you a Dr.? I am not a doctor. I am Daphne... On inquiry about why patient came to the hospital, she replies, with speech latency and in broken sentences I came... I wanted medications reviewed... And wanted a toxicology... The unknown.... Things got a little unhinged... The court room... Domestic stuff. Patient goes on I was looking for my medications at my house... Interviews, talking, trying to survive all the time... The reality of things is unclear to me... Of the events. Helicopter Engineer asks for clarification to which patient says, again after significant latency, the court house... I just want my [place] back... (she later clarifies that the [place] is a multi tool knife). Patient then started to refer to another patient, saying he wants a tape measure... I have one... I can hang out... There is time and things will be revealed... Whenever thing comes together... Family and judges and worldly stuff.. Helicopter Engineer asks about her earlier concern that her is poisoning her... Patient remained silent for awhile and then says I checked my meds... When I went to talk to them... I would like to see the toxicology... My back was sweating.. I was questioning reality generally... There was a 911 call... She then told contract technical writer she questioned the reality of this conversation but could not clarify further but then some something about getting her red ticket.. Regarding how she got to the hospital, patient said officers came to my house and talked to my kids...my daughter called them...since i was not feeling safe.....i know my very well...it just wasnt a good think going on...i wasn't...no...it got real.....im in survival mode...it started getting scary and dangerous...my was getting a little...red flaggs...it started to be an unsafe situation..he [] was not himself... Patient also said that her best friend Stephanie Holder dropped her off at the hospital; not clear how she got here. Patient gave contract technical writer permission to talk to Stephanie and also to collect information from her . denies drugs or taking her prescribed medications in excess denies hx manic episodes; yes AH but nothing to be alarmed about... Nurse Note by Karon Arora RN 06/25/25 09:54 - This RN spoke to [facility] regarding the situation that led to being present here in the ER. Per [facility] employee, yesterday there was an argument between the patient and her where both her and her received a crisis consult. Per [facility] employee, patient was originally seen by [facility] and it was determined she could go to respite, however, shortly after, crisis was called back to the home and the patient was sent here to the hospital. When the [facility] employee interviewed the pts 14 year old son, he reports that his mom has been acting really paranoid about things as of recently. (daughter 14yo, Son 11yo) 06/29 Patient remains with psychotic symptoms and said she thinks maybe he[] wants to kill or hurt me... Helicopter Engineer inquired and patient kept coming back to the fact that he put her home medications in the wrong pill box compartments... and this is what made her think he is trying to kill her... Patient however was willing to entertain that perhaps this might not be true. However, she is significantly more organized today than she was yesterday, talking in full sentences sticking to the topic at hand. She agrees that yesterday she was feeling much more confused she is thinking more clearly today. Patient's father present who has been meeting with her daily since this admission and who agrees that she is significantly better and headed back towards her regular self. Patient agreed to sign a CV and also agreed to have Vyvanse and bupropion discontinued for now; she also agreed to take risperidone which contract technical writer explained was hopefully just for few days. IMPRESSION: Patient demonstrating psychotic symptoms, auditory hallucinations, paranoid delusions and disorganized speech and behavior; patient is certainly internally preoccupied. So far collateral reports that patient has no history of psychosis or bipolar disorder. After gathering collateral from patient's and father, both deny any history of psychosis or sukhdeep were similar such episodes. Both speculate patient may have abused prescription medications including Vyvanse (and reports may have used crack cocaine) accounting for triggering this episode. Frequently substance induced psychosis resolves within 1-2 days (though can also persist for 2 or more weeks); however patient has remained on both Vyvanse and Wellbutrin which could prolonged symptoms (as both can increase dopamine). Will hold both Vyvanse and Wellbutrin. Also started risperidone low-dose to help with dopamine blockade. 06/30 Patient remains with paranoid ideation; refused Risperdal. On inquiry patient said she does not think she needs it but contract technical writer continue to educate patient on medication and she said she would start taking it. Patient with some increase disorganized behaviors today, seen self-dialoguing and responding to internal stimuli at 1 point standing aimlessly in hallway, not moving. Slept only 4 hours -hopefully patient will start taking risperidone 07/01 patient remains with intermittent odd and disorganized behaviors, talking to herself in the wetzel; remains with paranoid ideations however is able to be more logical in conversation and for longer periods of time. Patient's sister visiting who gave history that patient started to a peer to be manic about 5 months ago which correlates to increased Vyvanse dose (hyperactive, rapid speech, little sleep-which patient concurred); patient's sister volunteered that she has schizoaffective disorder and has been on medication which was a surprise to patient but with this news was willing to take Risperdal 07/02 patient doing much better. Patient is more organized in both speech and behavior. Patient did take Risperdal twice yesterday but found it made her tired and did not want it anymore. However she agrees it may have been helpful. Patient for the 1st time able to talk much more logically and accurately about history and shares with contract technical writer that she has been diagnosed with bipolar disorder in the past and was at 1 point on Seroquel around 400 mg and then stabilized on Lamictal 200 mg. Patient said that she had been doing well for so long that her current psychiatric provider agreed to start peeling away her medications and Seroquel was lowered to 100 mg Lamictal tapered down to 50 mg. This taper coincided with patient being started on stimulant medication for ADHD and her Vyvanse was titrated. Patient agrees that it is very possible that the tapering off of Lamictal (she may have been on only Lamictal and not Seroquel for quite awhile) the titration of a stimulant medication is what triggered manic episode which worsened over the past few weeks and included significant paranoid ideations. Patient agrees to get back on Lamictal which caused no side effects. -remains with paranoid ideations about her but they are less intense and patient more open to reality testing; of note patient's does have schizophrenia 07/05 patient continues to be improved, overall organized in speech and behavior able to discuss diagnosis and treatment appropriately 07/06Patient more disorganized doing bizarre, odd hand movements during interview. Patient mimicking/mirroring the hand gestures of whomever is talking; some echolalia as well. Patient remains very vague when discussing her thoughts. Continues to have some paranoid ideations about her however patient's sister does agree that patient's is excessively controlling and for the past 2 years, the sister has noticed that he dictates how long and with whom patient can spend time. Patient struggles to have insight into her behaviors including when they are pointed out in real-time. However she does agree to start perphenazine\ -had discussed risks/side effects of antipsychotics 07/07 Patient denies any medications side effects. Continues to have disorganized in behaviors and now hiding in the corners of the hallway throughout the milieu; continues to mirror movements of others with intermittent echolalia. Remains very vague on what he is thinking and keeps saying she is just waiting for it to all come together. 07/08 Patient Increasingly disorganized; standing in the corner for hours, peering around it into the milieu, not talking. Patient guarded on approach. Initially refused perphenazine but was willing to discuss it with contract technical writer and patient said she does not feel like herself and hoped that the medication would help repair that. Patient agreed to increasing perphenazine to 4 mg t.i.d. -regarding diagnosis, patient has past diagnosis of bipolar disorder which reportedly was treated with Lamictal and before that Seroquel. Patient is not particularly manic but is definitely with psychotic symptoms. Will provisionally change diagnosis to schizoaffective disorder 07/09 little better today with increased dose of perphenazine which patient has been taking. She denies medication side effects and agrees that medications are helpful Still odd but less so and seems to be more organized. Still with limited insight but reports she is feeling better and more like herself though can not specifically articulate why. Patient said she had a good talk with her daughter which was helpful; also talked with the telling him she wants to separate which she said was a long time coming -seems that perphenazine is helping; will continue 07/10 Patient agitated on the unit today and yelling in the hallway. Helicopter Engineer discussed this with patient who expresses concern about her being with her children. pt says she gave him bad news about their marriage and is worried about his mental state. She says he has had hallucinated/paranoid delusions about their son, a few years ago. Today, she can not say what he did or said that worried her...other than vague references to his composure...reactions...like he's not in touch with reality... But with no specifics...She agrees perhaps he could just be anxious... She also says she believes he has been unmedicated for a long time She then told her contract technical writer that Juan Miguel [son] talks in code to me, like I asked 'what are you wearing to school today...' and he said 'my pink Allan shirt tomorrow...' but he does not have a pink allan shirt, which means he's talking to me in code... She said this exchange happened the week prior to this admission and that he is talking in code her so his father will not know. Patient then showed contract technical writer a picture her son made which her brought in for her during this visit; she insisted him doing so was manipulative though contract technical writer could not understand why; patient showed contract technical writer a letter her wrote to her which was generally about how he is hoping for her and he wished to get help her. Patient says she thinks it is weird though contract technical writer could not understand why. After this encounter with her , she l called PD for wellness check on son; check was completed and PD informed her that her son is OK. She signed a 3 day notice 07/11 Patient refuse perphenazine, last night and this morning. Patient barely slept and staff reports she was pacing the wetzel throughout the night. On inquiry patient said that the afternoon dose was making her feel tired; regarding the bedtime dose, she said she just does not want to take this medication and wants to try something different in the same category. Helicopter Engineer offered haloperidol with which she agreed. Impression: Patient remains with paranoid ideations and no insight into her own illness. She has some hypomanic behaviors; most of her problematic symptoms have been psychosis so have been focusing on antipsychotic however patient may benefit from traditional mood stabilizer; will continue to titrate Lamictal however this may not be adequate. Will hold Lexapro. -if patient willing will also consider increasing Seroquel at bedtime though concern is it would cause daytime sedation and she would refuse it. 07/12 little more organized, angry at her ; does not want Haldol, saying it makes her too sedated and agreed to Clozaril after reviewing risks/side effects -patient says she will retract her 3 day and stay a little longer 07/13 more odd behaviors today, wandering, sometimes hiding in hallway; other times social with peers. Pt witnessed self-dialouging in bedroom. Agrees to titration of clozapine. Agrees to remain on the unit longer for treatment -when patient takes perphenazine or Haldol, odd behaviors seemed to clear up; currently those have been discontinued and she is on low-dose of clozapine which is being titrated 07/14: Patient reports moderate anxiety. Denies depression. Denies paranoia. Denies SI/HI/AVH. Continue current treatment regimen. 07/15/25: Patient is not active engage in 1-1 assessment, walking the wetzel, asking this provider credential she is not legal . can you open the door? . Report to nurse that she find it helpful to distract her self by using headphone. Told nurse that she tries to have a good day. Appear sad, irritable, preoccupied and appear to be psychotic with mood swing, restless. Per nursing, patient slept for 5 hours, compliant with meds. Continue with current plan. 07/16/25: I am upset every morning and am upset now, but I don't want to talk about it. Team reports pt is upset about needing to be on the unit this weekend. Family meeting on 07/19. Pt allowed brief meeting with tw- discussed Clozapine increase by primary provider in preparation for discharge, she agrees and concurs. Team reports pt slept for ~6.5 hours. Described as anxious, guarded and labile Episodic yelling on the unit, after a telephone call with partner. Sat on the floor in the middle of the milieu, asking her primary RN to pick her up. Was able to get off the floor on her own and meet with contract technical writer briefly, however, declined to discuss what was bothering her. Denies SI,HI,AH,VH- I am just pissed, you know? No new medical/diagnostic results. Back pain relieved with Ibuprofen Plan: Clozapine to increase to 100 mg tonight per primary provider. 07/17/25: Meet with patient in exam room. Report that anxiety is very high this morning. Says that she does not want to take PRN but she took it and report feeling better. Report trying to use coping skills such as listening to music, doing some art work and talk to staff and try not to explode . Patient is visible, less irritable and more cooperative, not question regarding this provider's capacity and title. Denies SI/SIB/HI/AVH. Can be labile. No medication changes. Per nursing, slept for 6 hours, compliant with meds. Denies side effects. Continue with current treatment plan. 07/18/25: Patient slept for 6 hours, frustrated being here. Increased anxiety this morning and not happy with her . Patient is the wetzel appear to be suspicious at the end of the wetzel, restless. She denies safety concerns, overwhelmed with coming family meeting, restless. Patient was on the phone with her , got very angry and upset, she started being loud talking about her . Able to redirect to talk to this provider in Group room C. Report that her told her she is not allowed to go home if you talk to me that way . Patient reports that her is not reasonable, not wanting to do family counseling regarding their marriage. She called him to just to talk to him in advance to prepare for tomorrow family meeting but at the end getting triggered by Scott . Patient was tearful, sad and irritable talking about her Patient accepted Ativan 1mg x1 to calm her down with good effects. 07/19 Patient remains with psychotic symptoms and remains guarded. Bizarre movements in the milieu. Today however was the 1st time she shared that she does have auditory hallucinations and will here words that at the moment she thinks are in reference to her, but she will around and see no one talking... she has not quite open to reality testing. Patient continues to have paranoid ideations. She remains quite guarded and mostly says I am just waiting for to all come together when asked further about psychotic symptoms. Patient agrees to increasing clozapine. She reports that she is starting to feel quite depressed which she thinks his partly situational, missing her kids but also just a deeper regular depression and she mentions that she has been off her Wellbutrin and Vyvanse and Lexapro. Helicopter Engineer discussed the reasons for this and the concern that restarting these too soon could exacerbate symptoms which she accepts and again agrees to increase clozapine; also agrees to continued Lamictal increase 07/20 Patient now back to mirroring various staff; continues with bizarre movements in hallway. Patient opened up a bit more about her thoughts. Regarding mirroring, she at 1st said it was a joke but then she acknowledged that it is not a joke... She shared that she thinks perhaps this admission is all a set up and that this is not a real hospital unit, that this contract technical writer is not a real doctor and that the staff are all involved in this set up.. She could not explain why such as set up would be occurring and somehow her mirroring Staff is a part of this life. Helicopter Engineer attempted reality testing and patient was not opposed to it but says she is not sure if she believes that this contract technical writer is a real doctor or that this is a real hospital wings; regarding the unit, she says it looks different, it set a part... It is not new... It is not a part of the hospital. Patient agreed to consider that this police might just be her mind playing tricks on her and contract technical writer reassured her that all of this is in fact real and that she is being treated for in illness. She continues to report AH but remains vague about it. 07/21 remains with paranoid ideations, AH; will continue titrating clozapine 07/24 Impression: Patient remains psychotic with auditory hallucinations and paranoid ideations. While her behaviors themselves (internal preoccupation and self dialoguing; disorganized behaviors) and comments reveal the psychotic process, Up until now she has remained very guarded about sharing them. Patient has little insight, though she remains willing to remain on the unit continue with medication. Patient told contract technical writer she has has a diagnosis of bipolar disorder and was manic/hypomanic for a few months prior to worsening psychotic symptoms (lowering of mood stabilizer and increasing of Vyvanse seemed to be the trigger); she used to be on Seroquel (400-600mg) but found it too sedating and cause significant weight gain and does not want to increase dose (using it for sleep only). While Patient did have some manic behaviors earlier in admission, it seems that the psychotic symptoms are independent of both sukhdeep and depression as they have been ongoing in between mood episodes and so will continue with diagnosis of schizoaffective disorder, bipolar type (but leave it as provisional dx). Patients severe trauma history is certainly contributory to her anxiety and paranoia. Regarding patient's lack of insight, yesterday she called her 11-year-old son and told him the only reason she is in the hospital was because of his father which significantly upset the son. Currently Patient remains too paranoid about her to adequately discuss her own symptoms and why she ended up hospitalized (though she has some sense that she was getting dysregulated). Patient remains fragile and she remain vulnerable to worsening psychosis or return of manic symptoms; she requires continued medication titration. She has significant paranoid ideations about her and has already lost full access to her children via DCF, and can now only see them when supervised; if she were to discharge now, her ongoing symptoms place her at high risk for further DCF intervention. Given her lack of insight, paranoid ideations towards her and paranoid belief that this admission is a set up Patient is at high risk for unsafe behaviors in the community and requires continued inpatient stay for treatment. Regarding medication management, will continue to titrate clozapine since she is tolerating it and it is helpful for both psychosis and bipolar disorder (including bipolar depression). Would like to restart Wellbutrin for depression however will try to get AH under better control 1st; will hold off on Lexapro until mood stabilizing medications are at therapeutic doses so as not to trigger manic episode. 07/22 Patient remains with paranoid ideations and told contract technical writer today that she is fully convinced that she is here on the unit as the focal point of a conspiracy with staff and pretend patients all in on it playing a game at her expense. She said she is feeling tired of playing the game and she just not going to right now. Helicopter Engineer asked for an example and she said that there was water on the floor which she had to walk around and not get emotionally dysregulated; she explained that the water was purposely but there to test her. Helicopter Engineer continued to provide education to the contrary that she is being psychiatrically treated on a true psychiatric unit. It is difficult to tell if patient has some insight in that she needs treatment and medication or if she is accepting treatment/medication as part of playing the game... At any rate she agrees to increase Clozaril. She said she is feeling tired in the morning and so contract technical writer agreed to try and see if she could tolerate restarting Wellbutrin. -patient expressing depressed feelings and feeling tired in the morning which make sense as she is off both Wellbutrin and Vyvanse; will restart Wellbutrin to help with daytime tiredness and depression at the risk of exacerbating psychotic symptoms. Starting at a low-dose is minimal risk and contract technical writer considers it worth restarting this medication to avoid patient becoming disinterested in clozapine -retracted 3 day notice 07/23 No change in presentation; patient remains self dialouging. Patient continues to believe the people on the unit are actors part of a set up scheme, pretending to be a psychiatric unit. Patient pointed out different staff that she is unable to tell if they are part of the scheme or not -continue clozapine titration -today started Wellbutrin XL 150 mg since patient complaining of depression and tiredness; hoping that this does not exacerbate psychotic symptoms 07/24/25:Reviewed with team, plan of care reviewed, pt allowed a brief interaction stating she was doing OK and denied current issues or concerns. She is visable in milieu, talkative with select peers, spending a lot of time looking out of the wetzel windows. Team reports she feels we are playing games with her. Approached about this issue-she denied 07/25/25: Team reports pt refused Clozapine last night. Discussed with pt. You know, I woke up feeling like me today. When I take it I feel incoherent, too sedated . Discussed that refusals may increase her in pt time. We agreed to a decrease from 225 to 200 this evening. 07/26 Patient remains fully convinced that this contract technical writer is not a real doctor, the unit does not a real psychiatric unit and that the patients and staff are part of enact, designed to somehow play a game with her of which she is the main character. Patient is clear on this with contract technical writer. Helicopter Engineer again attempted reality testing clearly discussing her illness and treatment for; she does not necessarily disagree but it is difficult to know her level of insight into her own illness. Helicopter Engineer discussed the the significant concern were she to discharge now and patient agrees to remain on the unit and continue with treatment -over the weekend, she refused clozapine on Saturday; however she said she will continue taking it 07/27 patient refuses Clozaril without much reasoning; agrees to start Vraylar; remains without any insight and with paranoid delusions Plan cv q15 Start Vraylar 1.5 mg Discontinue clozapine 300 mg q.h.s.; patient refuses Started Wellbutrin XL 150 mg daily continue Seroquel 100 at bedtime for sleep (perhaps can eventually get off this and just use clozapine). Increased Lamictal to 150 mg: Used to be on 200 and has been on 50 mg for months BuSpar 15 mg twice a day. HOLD Wellbutrin 300 mg daily: To avoid exacerbating psychotic symptoms HOLD Lexapro 10 mg daily since hypomanic behaviors HOLD Vyvanse DC perphenazine; patient did not want it, saying it made her sedated DC risperidone; patient does not like and patient is improved DC Haldol; said made too sedating P.R.N. Zyprexa 5mg q.4 hours p.r.n. for agitation/psychosis Patient educated on: diagnosis, medication risk/benefits and therapeutic strategies Informed Consent: understands, does not understand and further education needed Reason for continued inpatient stay Substantial Risk for: rapid decompensation Time Spent With Patient Time: Total time managing care of this patient today ____ minutes.
[2025-07-27 19:37] VITALS: BP 128/75; PULSE 100; RESP 16; TEMP 37.4; O2SAT 100
[2025-07-27 23:45] VITALS: BP 137/82
[2025-07-28] MEDS: buPROPion HCl XL 150 MG TAB.ER.24H PO (08:51)
--- NOTE | 2025-07-28 19:48 | HO.PSYCHPN ---
Subjective Subjective Date of Service: 07/28/25 Reason For Visit: Recurrent major depression with psychosis Interim History: Met with patient; discussed with team No change in presentation; patient says no side effect from Vraylar and agrees to increase dose Mental Status Exam Mental Status Exam Narrative: Pt is alert and oriented; behavior is guarded; intermittently odd, making odd movements with her hands in the hallway; also able to socialize, and interact appropriately with peers; self-dialoguing; remains guarded and superficial but is also cooperative and friendly on approach; patient is not in distress; dressed in casual attire with adequate grooming and hygiene; mood is described as ok and affect varies from being constricted, to anxious to furtive and sometimes smiling and bright; eye contact appropriate; Speech is normal rate, volume and prosody and not pressured; intermittent psychomotor agitation present; thought process is mostly linear; Thought content is on paranoid ideations; denies any SI/HI. +AH and pt intermittently internally preoccupied. Patients insight and judgment impaired Diagnostics Vital Signs (24Hr): Vital Signs - 24 hr 07/27/25 23:45 Blood Pressure 137/82 BMI result Body Mass Index 23.0 Labs 06/30/25 07:49 06/30/25 07:49 Labs: Laboratory Results - last 48 hr 07/26/25 12:57 T.pallidum Ab (EIA) Nonreactive Medications Medications Current Medications Acetaminophen (Acetaminophen 325 Mg Tablet) 650 mg PO Q6H PRN PRN Reason: Headache/Pain, Scale 1-10 Last Admin: 07/25/25 10:00 Dose: 650 mg Al Hydroxide/Mg Hydroxide (Magnesium Hydrox/Alum Hydrox 30 Ml Oral.Susp) 30 ml PO Q6H PRN PRN Reason: Heartburn/Nausea Bupropion HCl (Bupropion Hcl Xl 150 Mg Tab.Er.24h) 150 mg PO DAILY [facility] Last Admin: 07/28/25 08:51 Dose: 150 mg Buspirone HCl (Buspirone Hcl 5 Mg Tablet) 15 mg PO BID [facility] Last Admin: 07/28/25 08:51 Dose: 15 mg Cariprazine (Cariprazine Hcl 1.5 Mg Capsule) 1.5 mg PO DAILY [facility] Last Admin: 07/28/25 08:51 Dose: 1.5 mg Cyclobenzaprine HCl (Cyclobenzaprine Hcl 10 Mg Tablet) 10 mg PO TID PRN PRN Reason: Muscle Spasm Last Admin: 07/28/25 06:26 Dose: 10 mg Fluticasone Propionate (Fluticasone Propionate Nasal 16 Gm [place]) 1 spray NOSTRIL-B BID PRN PRN Reason: sinus congestion Last Admin: 07/27/25 15:38 Dose: 1 spray Hydroxyzine HCl (Hydroxyzine Hcl 25 Mg Tablet) 25 mg PO Q6H PRN PRN Reason: mild anxiety Last Admin: 07/23/25 17:12 Dose: 25 mg Ibuprofen (Ibuprofen 600 Mg Tablet) 600 mg PO Q6H PRN PRN Reason: Pain, Severe (Pain Scale 7-10) Last Admin: 07/27/25 15:37 Dose: 600 mg Lamotrigine (Lamotrigine 25 Mg Tablet) 175 mg PO BEDTIME RATNA Last Admin: 07/27/25 23:44 Dose: 175 mg Levothyroxine Sodium (Levothyroxine Sodium 75 Mcg Tablet) 75 mcg PO DAILY@0600 [facility] Last Admin: 07/28/25 06:24 Dose: 75 mcg Lidocaine HCl (Lidocaine 4 % Cream Kit) 1 appl TOPICAL ONCE PRN; Protocol PRN Reason: lower back pain Last Admin: 07/16/25 07:05 Dose: 1 appl Lorazepam (Lorazepam 0.5 Mg Tablet) 0.5 mg PO DAILY PRN PRN Reason: severe anxiety Last Admin: 07/28/25 08:55 Dose: 0.5 mg Magnesium Hydroxide (Milk Of Magnesia 30 Ml Oral.Susp) 30 ml PO DAILY PRN PRN Reason: Constipation Multivitamins/Vitamin C (Multivitamin Tablet) 1 tab PO DAILY RATNA Last Admin: 07/28/25 08:51 Dose: 1 tab Nicotine Polacrilex (Nicotine Polacrilex 2 Mg Gum) 4 mg BUCCAL Q2H PRN PRN Reason: Nicotine Cravings Prazosin HCl (Prazosin Hcl 1 Mg Capsule) 2 mg PO BEDTIME RATNA; Protocol Last Admin: 07/27/25 23:45 Dose: 2 mg Quetiapine Fumarate (Quetiapine Fumarate 100 Mg Tablet) 100 mg PO BEDTIME RATNA Last Admin: 07/27/25 23:46 Dose: 100 mg Risperidone (Risperidone 1 Mg Tablet) 1 mg PO DAILY PRN PRN Reason: disorganized behavior Trazodone HCl (Trazodone Hcl 50 Mg Tablet) 50 mg PO BEDTIME MRX1 PRN PRN Reason: Insomnia Allergies Allergies Allergy/AdvReac Type Severity Reaction Status Date / Time No Known Allergies Allergy Verified 06/24/25 17:49 Assessment & Plan Assessment & Plan (1) Schizoaffective disorder, bipolar type: Status: Acute Code(s): F25.0 - Schizoaffective disorder, bipolar type (2) Depression: Status: Acute Code(s): F32.A - Depression, unspecified (3) PTSD (post-traumatic stress disorder): Status: Acute Code(s): F43.10 - Post-traumatic stress disorder, unspecified Plan HPI: Pt is a 40 year old female who presented to the ED after being dropped off by a friend . Upon arrival to the ED she appeared increasingly paranoid and indicated that she was fearful she was being drugged by her and voiced concern for her and her children's safety. Pt stated that she wanted to have her medications checked as things are just off, my daily routine is off . Pt provided inconsistent information as evidence by conflicting information from what she disclosed to the ED provider upon arrival and at times appears to be a poor historian as a result of her current presentation. She remained guarded at this time and at times appeared to be minimizing symptoms as well as medication seeking as she remained primarily focused on her controlled substances that she is currently prescribed. It is to be noted. Formulation/clinical reasoning: Increasing psychotic behaviors, paranoid, disorganized thought process. Family members have safety concern regarding patient mental status at this current time. Even the above information, patient will be benefit in restrictive environment, medication management, and refer patient back to outpatient psychiatric services. Hospital course: 06/25/25: Continue with home medications. In my impression, patient may think that she just come here to get refill of her medication and will be sent home. However, other time she also stating that she has not come here for medication change as if she needs a refilled she can get it feel from her OP provider. Ativan 1 mg q.4 hours p.r.n. for severe anxiety. Home dose was only 0.5 b.i.d. p.r.n.. Stimulants: Continue with stimulants, we will monitor if it causing more psychotic behavior. Questioned if patient overused her Adderall information regarding recent weight lost, and be psychotic. 06/26/2025: Continue to encourage medication adherence and engagement. 06/27: accepting medications and requested prazosin 2mg be restarted 06/28 Patient is a limited historian due to disorganized speech and behavior. Throughout interview patient looking off in the distance, sometimes very latent responses, appearing to be internally preoccupied; frequently not finishing sentences, giving cryptic, vague and frequently unrelated responses to discussion questions. Television Installer Helper introduces himself has a doctor... Patient then asks are you a Dr.? I am not a doctor. I am Daphne... On inquiry about why patient came to the hospital, she replies, with speech latency and in broken sentences I came... I wanted medications reviewed... And wanted a toxicology... The unknown.... Things got a little unhinged... The court room... Domestic stuff. Patient goes on I was looking for my medications at my house... Interviews, talking, trying to survive all the time... The reality of things is unclear to me... Of the events. Television Installer Helper asks for clarification to which patient says, again after significant latency, the court house... I just want my [place] back... (she later clarifies that the [place] is a multi tool knife). Patient then started to refer to another patient, saying he wants a tape measure... I have one... I can hang out... There is time and things will be revealed... Whenever thing comes together... Family and judges and worldly stuff.. Television Installer Helper asks about her earlier concern that her is poisoning her... Patient remained silent for awhile and then says I checked my meds... When I went to talk to them... I would like to see the toxicology... My back was sweating.. I was questioning reality generally... There was a 911 call... She then told marine underwriter she questioned the reality of this conversation but could not clarify further but then some something about getting her red ticket.. Regarding how she got to the hospital, patient said officers came to my house and talked to my kids...my daughter called them...since i was not feeling safe.....i know my very well...it just wasnt a good think going on...i wasn't...no...it got real.....im in survival mode...it started getting scary and dangerous...my was getting a little...red flaggs...it started to be an unsafe situation..he [] was not himself... Patient also said that her best friend Stephanie Holder dropped her off at the hospital; not clear how she got here. Patient gave marine underwriter permission to talk to Stephanie and also to collect information from her . denies drugs or taking her prescribed medications in excess denies hx manic episodes; yes AH but nothing to be alarmed about... Nurse Note by Karon Arora RN 06/25/25 09:54 - This RN spoke to [facility] regarding the situation that led to being present here in the ER. Per [facility] employee, yesterday there was an argument between the patient and her where both her and her received a crisis consult. Per [facility] employee, patient was originally seen by [facility] crisis and it was determined she could go to respite, however, shortly after, crisis was called back to the home and the patient was sent here to the hospital. When the [facility] employee interviewed the pts 14 year old son, he reports that his mom has been acting really paranoid about things as of recently. (daughter 14yo, Son 11yo) 06/29 Patient remains with psychotic symptoms and said she thinks maybe he[] wants to kill or hurt me... Television Installer Helper inquired and patient kept coming back to the fact that he put her home medications in the wrong pill box compartments... and this is what made her think he is trying to kill her... Patient however was willing to entertain that perhaps this might not be true. However, she is significantly more organized today than she was yesterday, talking in full sentences sticking to the topic at hand. She agrees that yesterday she was feeling much more confused she is thinking more clearly today. Patient's father present who has been meeting with her daily since this admission and who agrees that she is significantly better and headed back towards her regular self. Patient agreed to sign a CV and also agreed to have Vyvanse and bupropion discontinued for now; she also agreed to take risperidone which marine underwriter explained was hopefully just for few days. IMPRESSION: Patient demonstrating psychotic symptoms, auditory hallucinations, paranoid delusions and disorganized speech and behavior; patient is certainly internally preoccupied. So far collateral reports that patient has no history of psychosis or bipolar disorder. After gathering collateral from patient's and father, both deny any history of psychosis or sukhdeep were similar such episodes. Both speculate patient may have abused prescription medications including Vyvanse (and reports may have used crack cocaine) accounting for triggering this episode. Frequently substance induced psychosis resolves within 1-2 days (though can also persist for 2 or more weeks); however patient has remained on both Vyvanse and Wellbutrin which could prolonged symptoms (as both can increase dopamine). Will hold both Vyvanse and Wellbutrin. Also started risperidone low-dose to help with dopamine blockade. 06/30 Patient remains with paranoid ideation; refused Risperdal. On inquiry patient said she does not think she needs it but marine underwriter continue to educate patient on medication and she said she would start taking it. Patient with some increase disorganized behaviors today, seen self-dialoguing and responding to internal stimuli at 1 point standing aimlessly in hallway, not moving. Slept only 4 hours -hopefully patient will start taking risperidone 07/01 patient remains with intermittent odd and disorganized behaviors, talking to herself in the wetzel; remains with paranoid ideations however is able to be more logical in conversation and for longer periods of time. Patient's sister visiting who gave history that patient started to a peer to be manic about 5 months ago which correlates to increased Vyvanse dose (hyperactive, rapid speech, little sleep-which patient concurred); patient's sister volunteered that she has schizoaffective disorder and has been on medication which was a surprise to patient but with this news was willing to take Risperdal 07/02 patient doing much better. Patient is more organized in both speech and behavior. Patient did take Risperdal twice yesterday but found it made her tired and did not want it anymore. However she agrees it may have been helpful. Patient for the 1st time able to talk much more logically and accurately about history and shares with marine underwriter that she has been diagnosed with bipolar disorder in the past and was at 1 point on Seroquel around 400 mg and then stabilized on Lamictal 200 mg. Patient said that she had been doing well for so long that her current psychiatric provider agreed to start peeling away her medications and Seroquel was lowered to 100 mg Lamictal tapered down to 50 mg. This taper coincided with patient being started on stimulant medication for ADHD and her Vyvanse was titrated. Patient agrees that it is very possible that the tapering off of Lamictal (she may have been on only Lamictal and not Seroquel for quite awhile) the titration of a stimulant medication is what triggered manic episode which worsened over the past few weeks and included significant paranoid ideations. Patient agrees to get back on Lamictal which caused no side effects. -remains with paranoid ideations about her but they are less intense and patient more open to reality testing; of note patient's does have schizophrenia 07/05 patient continues to be improved, overall organized in speech and behavior able to discuss diagnosis and treatment appropriately 07/06Patient more disorganized doing bizarre, odd hand movements during interview. Patient mimicking/mirroring the hand gestures of whomever is talking; some echolalia as well. Patient remains very vague when discussing her thoughts. Continues to have some paranoid ideations about her however patient's sister does agree that patient's is excessively controlling and for the past 2 years, the sister has noticed that he dictates how long and with whom patient can spend time. Patient struggles to have insight into her behaviors including when they are pointed out in real-time. However she does agree to start perphenazine\ -had discussed risks/side effects of antipsychotics 07/07 Patient denies any medications side effects. Continues to have disorganized in behaviors and now hiding in the corners of the hallway throughout the milieu; continues to mirror movements of others with intermittent echolalia. Remains very vague on what he is thinking and keeps saying she is just waiting for it to all come together. 07/08 Patient Increasingly disorganized; standing in the corner for hours, peering around it into the milieu, not talking. Patient guarded on approach. Initially refused perphenazine but was willing to discuss it with marine underwriter and patient said she does not feel like herself and hoped that the medication would help repair that. Patient agreed to increasing perphenazine to 4 mg t.i.d. -regarding diagnosis, patient has past diagnosis of bipolar disorder which reportedly was treated with Lamictal and before that Seroquel. Patient is not particularly manic but is definitely with psychotic symptoms. Will provisionally change diagnosis to schizoaffective disorder 07/09 little better today with increased dose of perphenazine which patient has been taking. She denies medication side effects and agrees that medications are helpful Still odd but less so and seems to be more organized. Still with limited insight but reports she is feeling better and more like herself though can not specifically articulate why. Patient said she had a good talk with her daughter which was helpful; also talked with the telling him she wants to separate which she said was a long time coming -seems that perphenazine is helping; will continue 07/10 Patient agitated on the unit today and yelling in the hallway. Television Installer Helper discussed this with patient who expresses concern about her being with her children. pt says she gave him bad news about their marriage and is worried about his mental state. She says he has had hallucinated/paranoid delusions about their son, a few years ago. Today, she can not say what he did or said that worried her...other than vague references to his composure...reactions...like he's not in touch with reality... But with no specifics...She agrees perhaps he could just be anxious... She also says she believes he has been unmedicated for a long time She then told her marine underwriter that Juan Miguel [son] talks in code to me, like I asked 'what are you wearing to school today...' and he said 'my pink Allan shirt tomorrow...' but he does not have a pink allan shirt, which means he's talking to me in code... She said this exchange happened the week prior to this admission and that he is talking in code her so his father will not know. Patient then showed marine underwriter a picture her son made which her brought in for her during this visit; she insisted him doing so was manipulative though marine underwriter could not understand why; patient showed marine underwriter a letter her wrote to her which was generally about how he is hoping for her and he wished to get help her. Patient says she thinks it is weird though marine underwriter could not understand why. After this encounter with her , she l called PD for wellness check on son; check was completed and PD informed her that her son is OK. She signed a 3 day notice 07/11 Patient refuse perphenazine, last night and this morning. Patient barely slept and staff reports she was pacing the wetzel throughout the night. On inquiry patient said that the afternoon dose was making her feel tired; regarding the bedtime dose, she said she just does not want to take this medication and wants to try something different in the same category. Television Installer Helper offered haloperidol with which she agreed. Impression: Patient remains with paranoid ideations and no insight into her own illness. She has some hypomanic behaviors; most of her problematic symptoms have been psychosis so have been focusing on antipsychotic however patient may benefit from traditional mood stabilizer; will continue to titrate Lamictal however this may not be adequate. Will hold Lexapro. -if patient willing will also consider increasing Seroquel at bedtime though concern is it would cause daytime sedation and she would refuse it. 07/12 little more organized, angry at her ; does not want Haldol, saying it makes her too sedated and agreed to Clozaril after reviewing risks/side effects -patient says she will retract her 3 day and stay a little longer 07/13 more odd behaviors today, wandering, sometimes hiding in hallway; other times social with peers. Pt witnessed self-dialouging in bedroom. Agrees to titration of clozapine. Agrees to remain on the unit longer for treatment -when patient takes perphenazine or Haldol, odd behaviors seemed to clear up; currently those have been discontinued and she is on low-dose of clozapine which is being titrated 07/14: Patient reports moderate anxiety. Denies depression. Denies paranoia. Denies SI/HI/AVH. Continue current treatment regimen. 07/15/25: Patient is not active engage in 1-1 assessment, walking the wetzel, asking this provider credential she is not legal . can you open the door? . Report to nurse that she find it helpful to distract her self by using headphone. Told nurse that she tries to have a good day. Appear sad, irritable, preoccupied and appear to be psychotic with mood swing, restless. Per nursing, patient slept for 5 hours, compliant with meds. Continue with current plan. 07/16/25: I am upset every morning and am upset now, but I don't want to talk about it. Team reports pt is upset about needing to be on the unit this weekend. Family meeting on 07/19. Pt allowed brief meeting with tw- discussed Clozapine increase by primary provider in preparation for discharge, she agrees and concurs. Team reports pt slept for ~6.5 hours. Described as anxious, guarded and labile Episodic yelling on the unit, after a telephone call with partner. Sat on the floor in the middle of the milieu, asking her primary RN to pick her up. Was able to get off the floor on her own and meet with marine underwriter briefly, however, declined to discuss what was bothering her. Denies SI,HI,AH,VH- I am just pissed, you know? No new medical/diagnostic results. Back pain relieved with Ibuprofen Plan: Clozapine to increase to 100 mg tonight per primary provider. 07/17/25: Meet with patient in exam room. Report that anxiety is very high this morning. Says that she does not want to take PRN but she took it and report feeling better. Report trying to use coping skills such as listening to music, doing some art work and talk to staff and try not to explode . Patient is visible, less irritable and more cooperative, not question regarding this provider's capacity and title. Denies SI/SIB/HI/AVH. Can be labile. No medication changes. Per nursing, slept for 6 hours, compliant with meds. Denies side effects. Continue with current treatment plan. 07/18/25: Patient slept for 6 hours, frustrated being here. Increased anxiety this morning and not happy with her . Patient is the wetzel appear to be suspicious at the end of the wetzel, restless. She denies safety concerns, overwhelmed with coming family meeting, restless. Patient was on the phone with her , got very angry and upset, she started being loud talking about her . Able to redirect to talk to this provider in Group room C. Report that her told her she is not allowed to go home if you talk to me that way . Patient reports that her is not reasonable, not wanting to do family counseling regarding their marriage. She called him to just to talk to him in advance to prepare for tomorrow family meeting but at the end getting triggered by Scott . Patient was tearful, sad and irritable talking about her Patient accepted Ativan 1mg x1 to calm her down with good effects. 07/19 Patient remains with psychotic symptoms and remains guarded. Bizarre movements in the milieu. Today however was the 1st time she shared that she does have auditory hallucinations and will here words that at the moment she thinks are in reference to her, but she will around and see no one talking... she has not quite open to reality testing. Patient continues to have paranoid ideations. She remains quite guarded and mostly says I am just waiting for to all come together when asked further about psychotic symptoms. Patient agrees to increasing clozapine. She reports that she is starting to feel quite depressed which she thinks his partly situational, missing her kids but also just a deeper regular depression and she mentions that she has been off her Wellbutrin and Vyvanse and Lexapro. Television Installer Helper discussed the reasons for this and the concern that restarting these too soon could exacerbate symptoms which she accepts and again agrees to increase clozapine; also agrees to continued Lamictal increase 07/20 Patient now back to mirroring various staff; continues with bizarre movements in hallway. Patient opened up a bit more about her thoughts. Regarding mirroring, she at 1st said it was a joke but then she acknowledged that it is not a joke... She shared that she thinks perhaps this admission is all a set up and that this is not a real hospital unit, that this marine underwriter is not a real doctor and that the staff are all involved in this set up.. She could not explain why such as set up would be occurring and somehow her mirroring Staff is a part of this life. Television Installer Helper attempted reality testing and patient was not opposed to it but says she is not sure if she believes that this marine underwriter is a real doctor or that this is a real hospital wings; regarding the unit, she says it looks different, it set a part... It is not new... It is not a part of the hospital. Patient agreed to consider that this police might just be her mind playing tricks on her and marine underwriter reassured her that all of this is in fact real and that she is being treated for in illness. She continues to report AH but remains vague about it. 07/21 remains with paranoid ideations, AH; will continue titrating clozapine 07/24 Impression: Patient remains psychotic with auditory hallucinations and paranoid ideations. While her behaviors themselves (internal preoccupation and self dialoguing; disorganized behaviors) and comments reveal the psychotic process, Up until now she has remained very guarded about sharing them. Patient has little insight, though she remains willing to remain on the unit continue with medication. Patient told marine underwriter she has has a diagnosis of bipolar disorder and was manic/hypomanic for a few months prior to worsening psychotic symptoms (lowering of mood stabilizer and increasing of Vyvanse seemed to be the trigger); she used to be on Seroquel (400-600mg) but found it too sedating and cause significant weight gain and does not want to increase dose (using it for sleep only). While Patient did have some manic behaviors earlier in admission, it seems that the psychotic symptoms are independent of both sukhdeep and depression as they have been ongoing in between mood episodes and so will continue with diagnosis of schizoaffective disorder, bipolar type (but leave it as provisional dx). Patients severe trauma history is certainly contributory to her anxiety and paranoia. Regarding patient's lack of insight, yesterday she called her 11-year-old son and told him the only reason she is in the hospital was because of his father which significantly upset the son. Currently Patient remains too paranoid about her to adequately discuss her own symptoms and why she ended up hospitalized (though she has some sense that she was getting dysregulated). Patient remains fragile and she remain vulnerable to worsening psychosis or return of manic symptoms; she requires continued medication titration. She has significant paranoid ideations about her and has already lost full access to her children via DCF, and can now only see them when supervised; if she were to discharge now, her ongoing symptoms place her at high risk for further DCF intervention. Given her lack of insight, paranoid ideations towards her and paranoid belief that this admission is a set up Patient is at high risk for unsafe behaviors in the community and requires continued inpatient stay for treatment. Regarding medication management, will continue to titrate clozapine since she is tolerating it and it is helpful for both psychosis and bipolar disorder (including bipolar depression). Would like to restart Wellbutrin for depression however will try to get AH under better control 1st; will hold off on Lexapro until mood stabilizing medications are at therapeutic doses so as not to trigger manic episode. 07/22 Patient remains with paranoid ideations and told marine underwriter today that she is fully convinced that she is here on the unit as the focal point of a conspiracy with staff and pretend patients all in on it playing a game at her expense. She said she is feeling tired of playing the game and she just not going to right now. Television Installer Helper asked for an example and she said that there was water on the floor which she had to walk around and not get emotionally dysregulated; she explained that the water was purposely but there to test her. Television Installer Helper continued to provide education to the contrary that she is being psychiatrically treated on a true psychiatric unit. It is difficult to tell if patient has some insight in that she needs treatment and medication or if she is accepting treatment/medication as part of playing the game... At any rate she agrees to increase Clozaril. She said she is feeling tired in the morning and so marine underwriter agreed to try and see if she could tolerate restarting Wellbutrin. -patient expressing depressed feelings and feeling tired in the morning which make sense as she is off both Wellbutrin and Vyvanse; will restart Wellbutrin to help with daytime tiredness and depression at the risk of exacerbating psychotic symptoms. Starting at a low-dose is minimal risk and marine underwriter considers it worth restarting this medication to avoid patient becoming disinterested in clozapine -retracted 3 day notice 07/23 No change in presentation; patient remains self dialouging. Patient continues to believe the people on the unit are actors part of a set up scheme, pretending to be a psychiatric unit. Patient pointed out different staff that she is unable to tell if they are part of the scheme or not -continue clozapine titration -today started Wellbutrin XL 150 mg since patient complaining of depression and tiredness; hoping that this does not exacerbate psychotic symptoms 07/24/25:Reviewed with team, plan of care reviewed, pt allowed a brief interaction stating she was doing OK and denied current issues or concerns. She is visable in milieu, talkative with select peers, spending a lot of time looking out of the wetzel windows. Team reports she feels we are playing games with her. Approached about this issue-she denied 07/25/25: Team reports pt refused Clozapine last night. Discussed with pt. You know, I woke up feeling like me today. When I take it I feel incoherent, too sedated . Discussed that refusals may increase her in pt time. We agreed to a decrease from 225 to 200 this evening. 07/26 Patient remains fully convinced that this marine underwriter is not a real doctor, the unit does not a real psychiatric unit and that the patients and staff are part of [employer], designed to somehow play a game with her of which she is the main character. Patient is clear on this with marine underwriter. Television Installer Helper again attempted reality testing clearly discussing her illness and treatment for; she does not necessarily disagree but it is difficult to know her level of insight into her own illness. Television Installer Helper discussed the the significant concern were she to discharge now and patient agrees to remain on the unit and continue with treatment -over the weekend, she refused clozapine on Saturday; however she said she will continue taking it 07/27 patient refuses Clozaril without much reasoning; agrees to start Vraylar; remains without any insight and with paranoid delusions Plan cv q15 Increased to Vraylar 3 mg Discontinue clozapine 300 mg q.h.s.; patient refuses Started Wellbutrin XL 150 mg daily continue Seroquel 100 at bedtime for sleep (perhaps can eventually get off this and just use clozapine). Increased Lamictal to 150 mg: Used to be on 200 and has been on 50 mg for months BuSpar 15 mg twice a day. HOLD Wellbutrin 300 mg daily: To avoid exacerbating psychotic symptoms HOLD Lexapro 10 mg daily since hypomanic behaviors HOLD Vyvanse DC perphenazine; patient did not want it, saying it made her sedated DC risperidone; patient does not like and patient is improved DC Haldol; said made too sedating P.R.N. Zyprexa 5mg q.4 hours p.r.n. for agitation/psychosis Patient educated on: diagnosis and medication risk/benefits Informed Consent: understands and further education needed Reason for continued inpatient stay Substantial Risk for: inability to function Time Spent With Patient Time: Total time managing care of this patient today ____ minutes.
[2025-07-28 20:00] VITALS: BP 105/64; PULSE 86; RESP 18; TEMP 36.4; O2SAT 99
[2025-07-29 08:00] VITALS: BP 97/73; PULSE 99; RESP 16; TEMP 36.7; O2SAT 95
[2025-07-29] MEDS: buPROPion HCl XL 150 MG TAB.ER.24H PO (09:07)
[2025-07-29] MEDS: Lidocaine 4 % Cream KIT 1 APPL TOPICAL (09:08)
--- NOTE | 2025-07-29 09:33 | P.PNPSI_ITS ---
Subjective Subjective Date of Service: 07/29/25 Reason For Visit: Recurrent major depression with psychosis Interim History: Met with patient; discussed with team pt reports she's getting used to it here... and volunteers that she believes automobile and property underwriter is a real doctor and that this is a real hospital. Denies any AH. She says no med side-effects. Mental Status Exam Mental Status Exam Narrative: Pt is alert and oriented; behavior is somewhat guarded and mostly superficial; intermittently odd, talking to self at times; also able to socialize, and interact appropriately with peers; friendly on approach; patient is not in distress; dressed in casual attire with adequate grooming and hygiene; mood is described as ok and affect varies from being constricted, to anxious to furtive and sometimes smiling and bright; eye contact appropriate; Speech is normal rate, volume and prosody and not pressured; intermittent psychomotor agitation present; thought process is mostly linear; Thought content is on paranoid ideations; denies any SI/HI. Denies AH though intermittently internally preoccupied. Patients insight and judgment impaired Diagnostics Vital Signs (24Hr): Vital Signs - 24 hr 07/28/25 20:00 Temperature 97.5 F Pulse Rate 86 Respiratory Rate 18 Blood Pressure 105/64 Pulse Oximetry 99 Oxygen Delivery Method Room Air BMI result Body Mass Index 23.0 Labs 06/30/25 07:49 06/30/25 07:49 Medications Medications Current Medications Acetaminophen (Acetaminophen 325 Mg Tablet) 650 mg PO Q6H PRN PRN Reason: Headache/Pain, Scale 1-10 Last Admin: 07/25/25 10:00 Dose: 650 mg Al Hydroxide/Mg Hydroxide (Magnesium Hydrox/Alum Hydrox 30 Ml Oral.Susp) 30 ml PO Q6H PRN PRN Reason: Heartburn/Nausea Ascorbic Acid (Ascorbic Acid 250 Mg Tablet) 250 mg PO DAILY [facility] Bupropion HCl (Bupropion Hcl Xl 150 Mg Tab.Er.24h) 150 mg PO DAILY [facility] Last Admin: 07/29/25 09:07 Dose: 150 mg Buspirone HCl (Buspirone Hcl 5 Mg Tablet) 15 mg PO BID [facility] Last Admin: 07/29/25 09:07 Dose: 15 mg Cariprazine (Cariprazine Hcl 3 Mg Capsule) 3 mg PO DAILY [facility] Last Admin: 07/29/25 09:06 Dose: 3 mg Cyclobenzaprine HCl (Cyclobenzaprine Hcl 10 Mg Tablet) 10 mg PO TID PRN PRN Reason: Muscle Spasm Last Admin: 07/28/25 06:26 Dose: 10 mg Fluticasone Propionate (Fluticasone Propionate Nasal 16 Gm Wilson) 1 spray NOSTRIL-B BID PRN PRN Reason: sinus congestion Last Admin: 07/27/25 15:38 Dose: 1 spray Hydroxyzine HCl (Hydroxyzine Hcl 25 Mg Tablet) 25 mg PO Q6H PRN PRN Reason: mild anxiety Last Admin: 07/23/25 17:12 Dose: 25 mg Ibuprofen (Ibuprofen 600 Mg Tablet) 600 mg PO Q6H PRN PRN Reason: Pain, Severe (Pain Scale 7-10) Last Admin: 07/27/25 15:37 Dose: 600 mg Lamotrigine (Lamotrigine 25 Mg Tablet) 175 mg PO BEDTIME RATNA Last Admin: 07/28/25 22:04 Dose: 175 mg Levothyroxine Sodium (Levothyroxine Sodium 75 Mcg Tablet) 75 mcg PO DAILY@0600 [facility] Last Admin: 07/29/25 06:29 Dose: 75 mcg Lidocaine HCl (Lidocaine 4 % Cream Kit) 1 appl TOPICAL ONCE PRN; Protocol PRN Reason: lower back pain Last Admin: 07/29/25 09:08 Dose: 1 appl Lorazepam (Lorazepam 0.5 Mg Tablet) 0.5 mg PO DAILY PRN PRN Reason: severe anxiety Last Admin: 07/28/25 08:55 Dose: 0.5 mg Magnesium Hydroxide (Milk Of Magnesia 30 Ml Oral.Susp) 30 ml PO DAILY PRN PRN Reason: Constipation Multivitamins/Vitamin C (Multivitamin Tablet) 1 tab PO DAILY RATNA Last Admin: 07/29/25 09:07 Dose: 1 tab Nicotine Polacrilex (Nicotine Polacrilex 2 Mg Gum) 4 mg BUCCAL Q2H PRN PRN Reason: Nicotine Cravings Prazosin HCl (Prazosin Hcl 1 Mg Capsule) 2 mg PO BEDTIME RATNA; Protocol Last Admin: 07/28/25 22:03 Dose: 2 mg Quetiapine Fumarate (Quetiapine Fumarate 100 Mg Tablet) 100 mg PO BEDTIME RATNA Last Admin: 07/28/25 22:04 Dose: 100 mg Risperidone (Risperidone 1 Mg Tablet) 1 mg PO DAILY PRN PRN Reason: disorganized behavior Trazodone HCl (Trazodone Hcl 50 Mg Tablet) 50 mg PO BEDTIME MRX1 PRN PRN Reason: Insomnia Allergies Allergies Allergy/AdvReac Type Severity Reaction Status Date / Time No Known Allergies Allergy Verified 06/24/25 17:49 Assessment & Plan Assessment & Plan (1) Schizoaffective disorder, bipolar type: Status: Acute Code(s): F25.0 - Schizoaffective disorder, bipolar type (2) Depression: Status: Acute Code(s): F32.A - Depression, unspecified (3) PTSD (post-traumatic stress disorder): Status: Acute Code(s): F43.10 - Post-traumatic stress disorder, unspecified Plan HPI: Pt is a 40 year old female who presented to the ED after being dropped off by a friend . Upon arrival to the ED she appeared increasingly paranoid and indicated that she was fearful she was being drugged by her and voiced concern for her and her children's safety. Pt stated that she wanted to have her medications checked as things are just off, my daily routine is off . Pt provided inconsistent information as evidence by conflicting information from what she disclosed to the ED provider upon arrival and at times appears to be a poor historian as a result of her current presentation. She remained guarded at this time and at times appeared to be minimizing symptoms as well as medication seeking as she remained primarily focused on her controlled substances that she is currently prescribed. It is to be noted. Formulation/clinical reasoning: Increasing psychotic behaviors, paranoid, disorganized thought process. Family members have safety concern regarding patient mental status at this current time. Even the above information, patient will be benefit in restrictive environment, medication management, and refer patient back to outpatient psychiatric services. Hospital course: 06/25/25: Continue with home medications. In my impression, patient may think that she just come here to get refill of her medication and will be sent home. However, other time she also stating that she has not come here for medication change as if she needs a refilled she can get it feel from her OP provider. Ativan 1 mg q.4 hours p.r.n. for severe anxiety. Home dose was only 0.5 b.i.d. p.r.n.. Stimulants: Continue with stimulants, we will monitor if it causing more psychotic behavior. Questioned if patient overused her Adderall information regarding recent weight lost, and be psychotic. 06/26/2025: Continue to encourage medication adherence and engagement. 06/27: accepting medications and requested prazosin 2mg be restarted 06/28 Patient is a limited historian due to disorganized speech and behavior. Throughout interview patient looking off in the distance, sometimes very latent responses, appearing to be internally preoccupied; frequently not finishing sentences, giving cryptic, vague and frequently unrelated responses to discussion questions. Supervisor Ditching introduces himself has a doctor... Patient then asks are you a Dr.? I am not a doctor. I am Daphne... On inquiry about why patient came to the hospital, she replies, with speech latency and in broken sentences I came... I wanted medications reviewed... And wanted a toxicology... The unknown.... Things got a little unhinged... The court room... Domestic stuff. Patient goes on I was looking for my medications at my house... Interviews, talking, trying to survive all the time... The reality of things is unclear to me... Of the events. Supervisor Ditching asks for clarification to which patient says, again after significant latency, the court house... I just want my [place] back... (she later clarifies that the Garrett is a multi tool knife). Patient then started to refer to another patient, saying he wants a tape measure... I have one... I can hang out... There is time and things will be revealed... Whenever thing comes together... Family and judges and worldly stuff.. Supervisor Ditching asks about her earlier concern that her is poisoning her... Patient remained silent for awhile and then says I checked my meds... When I went to talk to them... I would like to see the toxicology... My back was sweating.. I was questioning reality generally... There was a 911 call... She then told automobile and property underwriter she questioned the reality of this conversation but could not clarify further but then some something about getting her red ticket.. Regarding how she got to the hospital, patient said officers came to my house and talked to my kids...my daughter called them...since i was not feeling safe.....i know my very well...it just wasnt a good think going on...i wasn't...no...it got real.....im in survival mode...it started getting scary and dangerous...my was getting a little...red flaggs...it started to be an unsafe situation..he [] was not himself... Patient also said that her best friend Stephanie Holder dropped her off at the hospital; not clear how she got here. Patient gave automobile and property underwriter permission to talk to Stephanie and also to collect information from her . denies drugs or taking her prescribed medications in excess denies hx manic episodes; yes AH but nothing to be alarmed about... Nurse Note by Karon Arora RN 06/25/25 09:54 - This RN spoke to [facility] regarding the situation that led to being present here in the ER. Per [facility] employee, yesterday there was an argument between the patient and her where both her and her received a crisis consult. Per [facility] employee, patient was originally seen by [facility] mobile crisis and it was determined she could go to respite, however, shortly after, crisis was called back to the home and the patient was sent here to the hospital. When the [facility] employee interviewed the pts 14 year old son, he reports that his mom has been acting really paranoid about things as of recently. (daughter 14yo, Son 11yo) 06/29 Patient remains with psychotic symptoms and said she thinks maybe he[] wants to kill or hurt me... Supervisor Ditching inquired and patient kept coming back to the fact that he put her home medications in the wrong pill box compartments... and this is what made her think he is trying to kill her... Patient however was willing to entertain that perhaps this might not be true. However, she is significantly more organized today than she was yesterday, talking in full sentences sticking to the topic at hand. She agrees that yesterday she was feeling much more confused she is thinking more clearly today. Patient's father present who has been meeting with her daily since this admission and who agrees that she is significantly better and headed back towards her regular self. Patient agreed to sign a CV and also agreed to have Vyvanse and bupropion discontinued for now; she also agreed to take risperidone which automobile and property underwriter explained was hopefully just for few days. IMPRESSION: Patient demonstrating psychotic symptoms, auditory hallucinations, paranoid delusions and disorganized speech and behavior; patient is certainly internally preoccupied. So far collateral reports that patient has no history of psychosis or bipolar disorder. After gathering collateral from patient's and father, both deny any history of psychosis or sukhdeep were similar such episodes. Both speculate patient may have abused prescription medications including Vyvanse (and reports may have used crack cocaine) accounting for triggering this episode. Frequently substance induced psychosis resolves within 1-2 days (though can also persist for 2 or more weeks); however patient has remained on both Vyvanse and Wellbutrin which could prolonged symptoms (as both can increase dopamine). Will hold both Vyvanse and Wellbutrin. Also started risperidone low-dose to help with dopamine blockade. 06/30 Patient remains with paranoid ideation; refused Risperdal. On inquiry patient said she does not think she needs it but automobile and property underwriter continue to educate patient on medication and she said she would start taking it. Patient with some increase disorganized behaviors today, seen self-dialoguing and responding to internal stimuli at 1 point standing aimlessly in hallway, not moving. Slept only 4 hours -hopefully patient will start taking risperidone 07/01 patient remains with intermittent odd and disorganized behaviors, talking to herself in the wetzel; remains with paranoid ideations however is able to be more logical in conversation and for longer periods of time. Patient's sister visiting who gave history that patient started to a peer to be manic about 5 months ago which correlates to increased Vyvanse dose (hyperactive, rapid speech, little sleep-which patient concurred); patient's sister volunteered that she has schizoaffective disorder and has been on medication which was a surprise to patient but with this news was willing to take Risperdal 07/02 patient doing much better. Patient is more organized in both speech and behavior. Patient did take Risperdal twice yesterday but found it made her tired and did not want it anymore. However she agrees it may have been helpful. Patient for the 1st time able to talk much more logically and accurately about history and shares with automobile and property underwriter that she has been diagnosed with bipolar disorder in the past and was at 1 point on Seroquel around 400 mg and then stabilized on Lamictal 200 mg. Patient said that she had been doing well for so long that her current psychiatric provider agreed to start peeling away her medications and Seroquel was lowered to 100 mg Lamictal tapered down to 50 mg. This taper coincided with patient being started on stimulant medication for ADHD and her Vyvanse was titrated. Patient agrees that it is very possible that the tapering off of Lamictal (she may have been on only Lamictal and not Seroquel for quite awhile) the titration of a stimulant medication is what triggered manic episode which worsened over the past few weeks and included significant paranoid ideations. Patient agrees to get back on Lamictal which caused no side effects. -remains with paranoid ideations about her but they are less intense and patient more open to reality testing; of note patient's does have schizophrenia 07/05 patient continues to be improved, overall organized in speech and behavior able to discuss diagnosis and treatment appropriately 07/06Patient more disorganized doing bizarre, odd hand movements during interview. Patient mimicking/mirroring the hand gestures of whomever is talking; some echolalia as well. Patient remains very vague when discussing her thoughts. Continues to have some paranoid ideations about her however patient's sister does agree that patient's is excessively controlling and for the past 2 years, the sister has noticed that he dictates how long and with whom patient can spend time. Patient struggles to have insight into her behaviors including when they are pointed out in real-time. However she does agree to start perphenazine\ -had discussed risks/side effects of antipsychotics 07/07 Patient denies any medications side effects. Continues to have disorganized in behaviors and now hiding in the corners of the hallway throughout the milieu; continues to mirror movements of others with intermittent echolalia. Remains very vague on what he is thinking and keeps saying she is just waiting for it to all come together. 07/08 Patient Increasingly disorganized; standing in the corner for hours, peering around it into the milieu, not talking. Patient guarded on approach. Initially refused perphenazine but was willing to discuss it with automobile and property underwriter and patient said she does not feel like herself and hoped that the medication would help repair that. Patient agreed to increasing perphenazine to 4 mg t.i.d. -regarding diagnosis, patient has past diagnosis of bipolar disorder which reportedly was treated with Lamictal and before that Seroquel. Patient is not particularly manic but is definitely with psychotic symptoms. Will provisionally change diagnosis to schizoaffective disorder 07/09 little better today with increased dose of perphenazine which patient has been taking. She denies medication side effects and agrees that medications are helpful Still odd but less so and seems to be more organized. Still with limited insight but reports she is feeling better and more like herself though can not specifically articulate why. Patient said she had a good talk with her daughter which was helpful; also talked with the telling him she wants to separate which she said was a long time coming -seems that perphenazine is helping; will continue 07/10 Patient agitated on the unit today and yelling in the hallway. Supervisor Ditching discussed this with patient who expresses concern about her being with her children. pt says she gave him bad news about their marriage and is worried about his mental state. She says he has had hallucinated/paranoid delusions about their son, a few years ago. Today, she can not say what he did or said that worried her...other than vague references to his composure...reactions...like he's not in touch with reality... But with no specifics...She agrees perhaps he could just be anxious... She also says she believes he has been unmedicated for a long time She then told her automobile and property underwriter that Juan Miguel [son] talks in code to me, like I asked 'what are you wearing to school today...' and he said 'my pink Allan shirt tomorrow...' but he does not have a pink allan shirt, which means he's talking to me in code... She said this exchange happened the week prior to this admission and that he is talking in code her so his father will not know. Patient then showed automobile and property underwriter a picture her son made which her brought in for her during this visit; she insisted him doing so was manipulative though automobile and property underwriter could not understand why; patient showed automobile and property underwriter a letter her wrote to her which was generally about how he is hoping for her and he wished to get help her. Patient says she thinks it is weird though automobile and property underwriter could not understand why. After this encounter with her , she l called PD for wellness check on son; check was completed and PD informed her that her son is OK. She signed a 3 day notice 07/11 Patient refuse perphenazine, last night and this morning. Patient barely slept and staff reports she was pacing the wetzel throughout the night. On inquiry patient said that the afternoon dose was making her feel tired; regarding the bedtime dose, she said she just does not want to take this medication and wants to try something different in the same category. Supervisor Ditching offered haloperidol with which she agreed. Impression: Patient remains with paranoid ideations and no insight into her own illness. She has some hypomanic behaviors; most of her problematic symptoms have been psychosis so have been focusing on antipsychotic however patient may benefit from traditional mood stabilizer; will continue to titrate Lamictal however this may not be adequate. Will hold Lexapro. -if patient willing will also consider increasing Seroquel at bedtime though concern is it would cause daytime sedation and she would refuse it. 07/12 little more organized, angry at her ; does not want Haldol, saying it makes her too sedated and agreed to Clozaril after reviewing risks/side effects -patient says she will retract her 3 day and stay a little longer 07/13 more odd behaviors today, wandering, sometimes hiding in hallway; other times social with peers. Pt witnessed self-dialouging in bedroom. Agrees to titration of clozapine. Agrees to remain on the unit longer for treatment -when patient takes perphenazine or Haldol, odd behaviors seemed to clear up; currently those have been discontinued and she is on low-dose of clozapine which is being titrated 07/14: Patient reports moderate anxiety. Denies depression. Denies paranoia. Denies SI/HI/AVH. Continue current treatment regimen. 07/15/25: Patient is not active engage in 1-1 assessment, walking the wetzel, asking this provider credential she is not legal . can you open the door? . Report to nurse that she find it helpful to distract her self by using headphone. Told nurse that she tries to have a good day. Appear sad, irritable, preoccupied and appear to be psychotic with mood swing, restless. Per nursing, patient slept for 5 hours, compliant with meds. Continue with current plan. 07/16/25: I am upset every morning and am upset now, but I don't want to talk about it. Team reports pt is upset about needing to be on the unit this weekend. Family meeting on 07/19. Pt allowed brief meeting with tw- discussed Clozapine increase by primary provider in preparation for discharge, she agrees and concurs. Team reports pt slept for ~6.5 hours. Described as anxious, guarded and labile Episodic yelling on the unit, after a telephone call with partner. Sat on the floor in the middle of the milieu, asking her primary RN to pick her up. Was able to get off the floor on her own and meet with automobile and property underwriter briefly, however, declined to discuss what was bothering her. Denies SI,HI,AH,VH- I am just pissed, you know? No new medical/diagnostic results. Back pain relieved with Ibuprofen Plan: Clozapine to increase to 100 mg tonight per primary provider. 07/17/25: Meet with patient in exam room. Report that anxiety is very high this morning. Says that she does not want to take PRN but she took it and report feeling better. Report trying to use coping skills such as listening to music, doing some art work and talk to staff and try not to explode . Patient is visible, less irritable and more cooperative, not question regarding this provider's capacity and title. Denies SI/SIB/HI/AVH. Can be labile. No medication changes. Per nursing, slept for 6 hours, compliant with meds. Denies side effects. Continue with current treatment plan. 07/18/25: Patient slept for 6 hours, frustrated being here. Increased anxiety this morning and not happy with her . Patient is the wetzel appear to be suspicious at the end of the wetzel, restless. She denies safety concerns, overwhelmed with coming family meeting, restless. Patient was on the phone with her , got very angry and upset, she started being loud talking about her . Able to redirect to talk to this provider in Group room C. Report that her told her she is not allowed to go home if you talk to me that way . Patient reports that her is not reasonable, not wanting to do family counseling regarding their marriage. She called him to just to talk to him in advance to prepare for tomorrow family meeting but at the end getting triggered by Scott . Patient was tearful, sad and irritable talking about her Patient accepted Ativan 1mg x1 to calm her down with good effects. 07/19 Patient remains with psychotic symptoms and remains guarded. Bizarre movements in the milieu. Today however was the 1st time she shared that she does have auditory hallucinations and will here words that at the moment she thinks are in reference to her, but she will around and see no one talking... she has not quite open to reality testing. Patient continues to have paranoid ideations. She remains quite guarded and mostly says I am just waiting for to all come together when asked further about psychotic symptoms. Patient agrees to increasing clozapine. She reports that she is starting to feel quite depressed which she thinks his partly situational, missing her kids but also just a deeper regular depression and she mentions that she has been off her Wellbutrin and Vyvanse and Lexapro. Supervisor Ditching discussed the reasons for this and the concern that restarting these too soon could exacerbate symptoms which she accepts and again agrees to increase clozapine; also agrees to continued Lamictal increase 07/20 Patient now back to mirroring various staff; continues with bizarre movements in hallway. Patient opened up a bit more about her thoughts. Regarding mirroring, she at 1st said it was a joke but then she acknowledged that it is not a joke... She shared that she thinks perhaps this admission is all a set up and that this is not a real hospital unit, that this automobile and property underwriter is not a real doctor and that the staff are all involved in this set up.. She could not explain why such as set up would be occurring and somehow her mirroring Staff is a part of this life. Supervisor Ditching attempted reality testing and patient was not opposed to it but says she is not sure if she believes that this automobile and property underwriter is a real doctor or that this is a real hospital wings; regarding the unit, she says it looks different, it set a part... It is not new... It is not a part of the hospital. Patient agreed to consider that this police might just be her mind playing tricks on her and automobile and property underwriter reassured her that all of this is in fact real and that she is being treated for in illness. She continues to report AH but remains vague about it. 07/21 remains with paranoid ideations, AH; will continue titrating clozapine 07/24 Impression: Patient remains psychotic with auditory hallucinations and paranoid ideations. While her behaviors themselves (internal preoccupation and self dialoguing; disorganized behaviors) and comments reveal the psychotic process, Up until now she has remained very guarded about sharing them. Patient has little insight, though she remains willing to remain on the unit continue with medication. Patient told automobile and property underwriter she has has a diagnosis of bipolar disorder and was manic/hypomanic for a few months prior to worsening psychotic symptoms (lowering of mood stabilizer and increasing of Vyvanse seemed to be the trigger); she used to be on Seroquel (400-600mg) but found it too sedating and cause significant weight gain and does not want to increase dose (using it for sleep only). While Patient did have some manic behaviors earlier in admission, it seems that the psychotic symptoms are independent of both sukhdeep and depression as they have been ongoing in between mood episodes and so will continue with diagnosis of schizoaffective disorder, bipolar type (but leave it as provisional dx). Patients severe trauma history is certainly contributory to her anxiety and paranoia. Regarding patient's lack of insight, yesterday she called her 11-year-old son and told him the only reason she is in the hospital was because of his father which significantly upset the son. Currently Patient remains too paranoid about her to adequately discuss her own symptoms and why she ended up hospitalized (though she has some sense that she was getting dysregulated). Patient remains fragile and she remain vulnerable to worsening psychosis or return of manic symptoms; she requires continued medication titration. She has significant paranoid ideations about her and has already lost full access to her children via DCF, and can now only see them when supervised; if she were to discharge now, her ongoing symptoms place her at high risk for further DCF intervention. Given her lack of insight, paranoid ideations towards her and paranoid belief that this admission is a set up Patient is at high risk for unsafe behaviors in the community and requires continued inpatient stay for treatment. Regarding medication management, will continue to titrate clozapine since she is tolerating it and it is helpful for both psychosis and bipolar disorder (including bipolar depression). Would like to restart Wellbutrin for depression however will try to get AH under better control 1st; will hold off on Lexapro until mood stabilizing medications are at therapeutic doses so as not to trigger manic episode. 07/22 Patient remains with paranoid ideations and told automobile and property underwriter today that she is fully convinced that she is here on the unit as the focal point of a conspiracy with staff and pretend patients all in on it playing a game at her expense. She said she is feeling tired of playing the game and she just not going to right now. Supervisor Ditching asked for an example and she said that there was water on the floor which she had to walk around and not get emotionally dysregulated; she explained that the water was purposely but there to test her. Supervisor Ditching continued to provide education to the contrary that she is being psychiatrically treated on a true psychiatric unit. It is difficult to tell if patient has some insight in that she needs treatment and medication or if she is accepting treatment/medication as part of playing the game... At any rate she agrees to increase Clozaril. She said she is feeling tired in the morning and so automobile and property underwriter agreed to try and see if she could tolerate restarting Wellbutrin. -patient expressing depressed feelings and feeling tired in the morning which make sense as she is off both Wellbutrin and Vyvanse; will restart Wellbutrin to help with daytime tiredness and depression at the risk of exacerbating psychotic symptoms. Starting at a low-dose is minimal risk and automobile and property underwriter considers it worth restarting this medication to avoid patient becoming disinterested in clozapine -retracted 3 day notice 07/23 No change in presentation; patient remains self dialouging. Patient continues to believe the people on the unit are actors part of a set up scheme, pretending to be a psychiatric unit. Patient pointed out different staff that she is unable to tell if they are part of the scheme or not -continue clozapine titration -today started Wellbutrin XL 150 mg since patient complaining of depression and tiredness; hoping that this does not exacerbate psychotic symptoms 07/24/25:Reviewed with team, plan of care reviewed, pt allowed a brief interaction stating she was doing OK and denied current issues or concerns. She is visable in milieu, talkative with select peers, spending a lot of time looking out of the wetzel windows. Team reports she feels we are playing games with her. Approached about this issue-she denied 07/25/25: Team reports pt refused Clozapine last night. Discussed with pt. You know, I woke up feeling like me today. When I take it I feel incoherent, too sedated . Discussed that refusals may increase her in pt time. We agreed to a decrease from 225 to 200 this evening. 07/26 Patient remains fully convinced that this automobile and property underwriter is not a real doctor, the unit does not a real psychiatric unit and that the patients and staff are part of [employer], designed to somehow play a game with her of which she is the main character. Patient is clear on this with automobile and property underwriter. Supervisor Ditching again attempted reality testing clearly discussing her illness and treatment for; she does not necessarily disagree but it is difficult to know her level of insight into her own illness. Supervisor Ditching discussed the the significant concern were she to discharge now and patient agrees to remain on the unit and continue with treatment -over the weekend, she refused clozapine on Saturday; however she said she will continue taking it 07/27 patient refuses Clozaril without much reasoning; agrees to start Vraylar; remains without any insight and with paranoid delusions 07/29 pt reports she's getting used to it here... and volunteers that she believes automobile and property underwriter is a real doctor and that this is a real hospital. She says no med side-effects. Denies AVH. -increasing Lamictal to 200mg -not sure if patients sudden realization that this is a real hospital/admission is authentic or pt saying what she thinks automobile and property underwriter wants to hear Plan cv q15 Increased to Vraylar 3 mg Discontinue clozapine 300 mg q.h.s.; patient refuses Started Wellbutrin XL 150 mg daily continue Seroquel 100 at bedtime for sleep (perhaps can eventually get off this and just use clozapine). Increased Lamictal to 200 mg: Used to be on 200 and has been on 50 mg for months BuSpar 15 mg twice a day. Clonidine prn HOLD Wellbutrin 300 mg daily: To avoid exacerbating psychotic symptoms HOLD Lexapro 10 mg daily since hypomanic behaviors HOLD Vyvanse DC perphenazine; patient did not want it, saying it made her sedated DC risperidone; patient does not like and patient is improved DC Haldol; said made too sedating P.R.N. Zyprexa 5mg q.4 hours p.r.n. for agitation/psychosis Patient educated on: diagnosis, medication risk/benefits and therapeutic strategies Informed Consent: understands, does not understand and further education needed Reason for continued inpatient stay Substantial Risk for: rapid decompensation Time Spent With Patient Time: Total time managing care of this patient today ____ minutes.
[2025-07-29 19:14] VITALS: BP 120/69
[2025-07-29 19:48] VITALS: BP 120/69; PULSE 93; TEMP 36.9; O2SAT 99
[2025-07-29 23:15] VITALS: BP 117/70; PULSE 88; TEMP 36.3; O2SAT 98
[2025-07-30 08:19] VITALS: BP 119/85; PULSE 102; RESP 18; TEMP 36.5; O2SAT 100
[2025-07-30] MEDS: buPROPion HCl XL 150 MG TAB.ER.24H PO (08:49)
--- NOTE | 2025-07-30 09:36 | P.PNPSI_ITS ---
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 and Lexapro. Mobile Sales Technician discussed the reasons for this and the concern that restarting these too soon could exacerbate symptoms which she accepts and again agrees to increase clozapine; also agrees to continued Lamictal increase 07/20 Patient now back to mirroring various staff; continues with bizarre movements in hallway. Patient opened up a bit more about her thoughts. Regarding mirroring, she at 1st said it was a joke but then she acknowledged that it is not a joke... She shared that she thinks perhaps this admission is all a set up and that this is not a real hospital unit, that this sign writer letterer or painter is not a real doctor and that the staff are all involved in this set up.. She could not explain why such as set up would be occurring and somehow her mirroring Staff is a part of this life. Mobile Sales Technician attempted reality testing and patient was not opposed to it but says she is not sure if she believes that this sign writer letterer or painter is a real doctor or that this is a real hospital wings; regarding the unit, she says it looks different, it set a part... It is not new... It is not a part of the hospital. Patient agreed to consider that this police might just be her mind playing tricks on her and sign writer letterer or painter reassured her that all of this is in fact real and that she is being treated for in illness. She continues to report AH but remains vague about it. 07/21 remains with paranoid ideations, AH; will continue titrating clozapine 07/24 Impression: Patient remains psychotic with auditory hallucinations and paranoid ideations. While her behaviors themselves (internal preoccupation and self dialoguing; disorganized behaviors) and comments reveal the psychotic process, Up until now she has remained very guarded about sharing them. Patient has little insight, though she remains willing to remain on the unit continue with medication. Patient told sign writer letterer or painter she has has a diagnosis of bipolar disorder and was manic/hypomanic for a few months prior to worsening psychotic symptoms (lowering of mood stabilizer and increasing of Vyvanse seemed to be the trigger); she used to be on Seroquel (400-600mg) but found it too sedating and cause significant weight gain and does not want to increase dose (using it for sleep only). While Patient did have some manic behaviors earlier in admission, it seems that the psychotic symptoms are independent of both sukhdeep and depression as they have been ongoing in between mood episodes and so will continue with diagnosis of schizoaffective disorder, bipolar type (but leave it as provisional dx). Patients severe trauma history is certainly contributory to her anxiety and paranoia. Regarding patient's lack of insight, yesterday she called her 11-year-old son and told him the only reason she is in the hospital was because of his father which significantly upset the son. Currently Patient remains too paranoid about her to adequately discuss her own symptoms and why she ended up hospitalized (though she has some sense that she was getting dysregulated). Patient remains fragile and she remain vulnerable to worsening psychosis or return of manic symptoms; she requires continued medication titration. She has significant paranoid ideations about her and has already lost full access to her children via DCF, and can now only see them when supervised; if she were to discharge now, her ongoing symptoms place her at high risk for further DCF intervention. Given her lack of insight, paranoid ideations towards her and paranoid belief that this admission is a set up Patient is at high risk for unsafe behaviors in the community and requires continued inpatient stay for treatment. Regarding medication management, will continue to titrate clozapine since she is tolerating it and it is helpful for both psychosis and bipolar disorder (including bipolar depression). Would like to restart Wellbutrin for depression however will try to get AH under better control 1st; will hold off on Lexapro until mood stabilizing medications are at therapeutic doses so as not to trigger manic episode. 07/22 Patient remains with paranoid ideations and told sign writer letterer or painter today that she is fully convinced that she is here on the unit as the focal point of a conspiracy with staff and pretend patients all in on it playing a game at her expense. She said she is feeling tired of playing the game and she just not going to right now. Mobile Sales Technician asked for an example and she said that there was water on the floor which she had to walk around and not get emotionally dysregulated; she explained that the water was purposely but there to test her. Mobile Sales Technician continued to provide education to the contrary that she is being psychiatrically treated on a true psychiatric unit. It is difficult to tell if patient has some insight in that she needs treatment and medication or if she is accepting treatment/medication as part of playing the game... At any rate she agrees to increase Clozaril. She said she is feeling tired in the morning and so sign writer letterer or painter agreed to try and see if she could tolerate restarting Wellbutrin. -patient expressing depressed feelings and feeling tired in the morning which make sense as she is off both Wellbutrin and Vyvanse; will restart Wellbutrin to help with daytime tiredness and depression at the risk of exacerbating psychotic symptoms. Starting at a low-dose is minimal risk and sign writer letterer or painter considers it worth restarting this medication to avoid patient becoming disinterested in clozapine -retracted 3 day notice 07/23 No change in presentation; patient remains self dialouging. Patient continues to believe the people on the unit are actors part of a set up scheme, pretending to be a psychiatric unit. Patient pointed out different staff that she is unable to tell if they are part of the scheme or not -continue clozapine titration -today started Wellbutrin XL 150 mg since patient complaining of depression and tiredness; hoping that this does not exacerbate psychotic symptoms 07/24/25:Reviewed with team, plan of care reviewed, pt allowed a brief interaction stating she was doing OK and denied current issues or concerns. She is visable in milieu, talkative with select peers, spending a lot of time looking out of the wetzel windows. Team reports she feels we are playing games with her. Approached about this issue-she denied 07/25/25: Team reports pt refused Clozapine last night. Discussed with pt. You know, I woke up feeling like me today. When I take it I feel incoherent, too sedated . Discussed that refusals may increase her in pt time. We agreed to a decrease from 225 to 200 this evening. 07/26 Patient remains fully convinced that this sign writer letterer or painter is not a real doctor, the unit does not a real psychiatric unit and that the patients and staff are part of enact, designed to somehow play a game with her of which she is the main character. Patient is clear on this with sign writer letterer or painter. Mobile Sales Technician again attempted reality testing clearly discussing her illness and treatment for; she does not necessarily disagree but it is difficult to know her level of insight into her own illness. Mobile Sales Technician discussed the the significant concern were she to discharge now and patient agrees to remain on the unit and continue with treatment -over the weekend, she refused clozapine on Saturday; however she said she will continue taking it 07/27 patient refuses Clozaril without much reasoning; agrees to start Vraylar; remains without any insight and with paranoid delusions 07/29 pt reports she's getting used to it here... and volunteers that she believes sign writer letterer or painter is a real doctor and that this is a real hospital. She says no med side-effects. Denies AVH. -increasing Lamictal to 200mg -not sure if patients sudden realization that this is a real hospital/admission is authentic or pt saying what she thinks sign writer letterer or painter wants to hear 07/30 seems to be little more organized, less guarded and more relaxed. Continue treatment plan Plan cv q15 Increased to Vraylar 3 mg Discontinue clozapine 300 mg q.h.s.; patient refuses Started Wellbutrin XL 150 mg daily continue Seroquel 100 at bedtime for sleep (perhaps can eventually get off this and just use clozapine). Increased Lamictal to 200 mg: Used to be on 200 and has been on 50 mg for months BuSpar 15 mg twice a day. Clonidine prn HOLD Wellbutrin 300 mg daily: To avoid exacerbating psychotic symptoms HOLD Lexapro 10 mg daily since hypomanic behaviors HOLD Vyvanse DC perphenazine; patient did not want it, saying it made her sedated DC risperidone; patient does not like and patient is improved DC Haldol; said made too sedating P.R.N. Zyprexa 5mg q.4 hours p.r.n. for agitation/psychosis Patient educated on: diagnosis and therapeutic strategies Informed Consent: understands and further education needed Reason for continued inpatient stay Substantial Risk for: rapid decompensation Time Spent With Patient Time: Total time managing care of this patient today ____ minutes.
[2025-07-30 19:57] VITALS: BP 119/83; PULSE 63; RESP 18; TEMP 36.4; O2SAT 96
[2025-07-31 00:22] VITALS: BP 124/78
[2025-07-31 08:00] VITALS: BP 122/73; PULSE 92; RESP 17; TEMP 36.7; O2SAT 100
[2025-07-31] MEDS: buPROPion HCl XL 150 MG TAB.ER.24H PO (08:13)
--- NOTE | 2025-07-31 09:16 | P.PNPSI_ITS ---
Subjective Subjective Date of Service: 07/31/25 Reason For Visit: Recurrent major depression with psychosis Interim History: met with patient; discussed with team; reviewed chart pt mirroring other patients and seems internally preoccupied; keno writer/runner inquired and pt denies any AH or internal preoccupation but did offer that she's hesitant to reveal too much, worried that this will result in her having to stay longer. Inventory Specialist Manager provided education on this topic reassuring pt only goal is to help her. Pt shared some continued paranoid ideation of being watched, followed in the community and was again surprised to learn keno writer/runner not involved and does not know of it...She also more open to reality testing Mental Status Exam Mental Status Exam Narrative: Pt is alert and oriented; behavior seems overall more organized, and with less odd moments; talking to self at times, but more often socialize, and interacting appropriately with peers; remains friendly on approach; patient is not in distress; dressed in casual attire with adequate grooming and hygiene; mood is described as good and affect varies from being constricted, to anxious to furtive and sometimes smiling and bright; eye contact appropriate; Speech is normal rate, volume and prosody and not pressured; no psychomotor agitation present; thought process is mostly linear; Thought content remains guarded but a little less so; still with some amount of paranoid ideations; denies any SI/HI. Denies AH though intermittently internally preoccupied. Patients insight and judgment impaired Diagnostics Vital Signs (24Hr): Vital Signs - 24 hr 07/30/25 19:57 07/31/25 00:22 Temperature 97.5 F Pulse Rate 63 Respiratory Rate 18 Blood Pressure 119/83 124/78 Pulse Oximetry 96 Oxygen Delivery Method Room Air BMI result Body Mass Index 23.0 Labs 06/30/25 07:49 06/30/25 07:49 Medications Medications Current Medications Acetaminophen (Acetaminophen 325 Mg Tablet) 650 mg PO Q6H PRN PRN Reason: Headache/Pain, Scale 1-10 Last Admin: 07/25/25 10:00 Dose: 650 mg Al Hydroxide/Mg Hydroxide (Magnesium Hydrox/Alum Hydrox 30 Ml Oral.Susp) 30 ml PO Q6H PRN PRN Reason: Heartburn/Nausea Ascorbic Acid (Ascorbic Acid 250 Mg Tablet) 250 mg PO DAILY RATNA Last Admin: 07/31/25 08:13 Dose: 250 mg Bupropion HCl (Bupropion Hcl Xl 150 Mg Tab.Er.24h) 150 mg PO DAILY [facility] Last Admin: 07/31/25 08:13 Dose: 150 mg Buspirone HCl (Buspirone Hcl 5 Mg Tablet) 15 mg PO BID [facility] Last Admin: 07/31/25 08:13 Dose: 15 mg Cariprazine (Cariprazine Hcl 3 Mg Capsule) 3 mg PO DAILY [facility] Last Admin: 07/31/25 08:13 Dose: 3 mg Clonidine HCl (Clonidine Hcl 0.1 Mg Tablet) 0.1 mg PO Q4H PRN; Protocol PRN Reason: moderate anxiety Last Admin: 07/30/25 09:04 Dose: 0.1 mg Cyclobenzaprine HCl (Cyclobenzaprine Hcl 10 Mg Tablet) 10 mg PO TID PRN PRN Reason: Muscle Spasm Last Admin: 07/28/25 06:26 Dose: 10 mg Fluticasone Propionate (Fluticasone Propionate Nasal 16 Gm Turpin) 1 spray NOSTRIL-B BID PRN PRN Reason: sinus congestion Last Admin: 07/27/25 15:38 Dose: 1 spray Hydroxyzine HCl (Hydroxyzine Hcl 25 Mg Tablet) 25 mg PO Q6H PRN PRN Reason: mild anxiety Last Admin: 07/30/25 18:41 Dose: 25 mg Ibuprofen (Ibuprofen 600 Mg Tablet) 600 mg PO Q6H PRN PRN Reason: Pain, Severe (Pain Scale 7-10) Last Admin: 07/31/25 08:40 Dose: 600 mg Lamotrigine (Lamotrigine 100 Mg Tablet) 200 mg PO BEDTIME [facility] Last Admin: 07/30/25 11:55 Dose: 200 mg Levothyroxine Sodium (Levothyroxine Sodium 75 Mcg Tablet) 75 mcg PO DAILY@0600 [facility] Last Admin: 07/31/25 06:08 Dose: 75 mcg Lidocaine HCl (Lidocaine 4 % Cream Kit) 1 appl TOPICAL ONCE PRN; Protocol PRN Reason: lower back pain Last Admin: 07/29/25 09:08 Dose: 1 appl Lorazepam (Lorazepam 0.5 Mg Tablet) 0.5 mg PO DAILY PRN PRN Reason: severe anxiety Last Admin: 07/29/25 10:44 Dose: 0.5 mg Magnesium Hydroxide (Milk Of Magnesia 30 Ml Oral.Susp) 30 ml PO DAILY PRN PRN Reason: Constipation Multivitamins/Vitamin C (Multivitamin Tablet) 1 tab PO DAILY RATNA Last Admin: 07/31/25 08:18 Dose: 1 tab Nicotine Polacrilex (Nicotine Polacrilex 2 Mg Gum) 4 mg BUCCAL Q2H PRN PRN Reason: Nicotine Cravings Prazosin HCl (Prazosin Hcl 1 Mg Capsule) 2 mg PO BEDTIME RATNA; Protocol Last Admin: 07/31/25 00:22 Dose: 2 mg Quetiapine Fumarate (Quetiapine Fumarate 100 Mg Tablet) 100 mg PO BEDTIME RATNA Last Admin: 07/31/25 00:23 Dose: 100 mg Risperidone (Risperidone 1 Mg Tablet) 1 mg PO DAILY PRN PRN Reason: disorganized behavior Trazodone HCl (Trazodone Hcl 50 Mg Tablet) 50 mg PO BEDTIME MRX1 PRN PRN Reason: Insomnia Allergies Allergies Allergy/AdvReac Type Severity Reaction Status Date / Time No Known Allergies Allergy Verified 06/24/25 17:49 Assessment & Plan Assessment & Plan (1) Schizoaffective disorder, bipolar type: Status: Acute Code(s): F25.0 - Schizoaffective disorder, bipolar type (2) Depression: Status: Acute Code(s): F32.A - Depression, unspecified (3) PTSD (post-traumatic stress disorder): Status: Acute Code(s): F43.10 - Post-traumatic stress disorder, unspecified Plan HPI: Pt is a 40 year old female who presented to the ED after being dropped off by a friend . Upon arrival to the ED she appeared increasingly paranoid and indicated that she was fearful she was being drugged by her and voiced concern for her and her children's safety. Pt stated that she wanted to have her medications checked as things are just off, my daily routine is off . Pt provided inconsistent information as evidence by conflicting information from what she disclosed to the ED provider upon arrival and at times appears to be a poor historian as a result of her current presentation. She remained guarded at this time and at times appeared to be minimizing symptoms as well as medication seeking as she remained primarily focused on her controlled substances that she is currently prescribed. It is to be noted. Formulation/clinical reasoning: Increasing psychotic behaviors, paranoid, disorganized thought process. Family members have safety concern regarding patient mental status at this current time. Even the above information, patient will be benefit in restrictive environment, medication management, and refer patient back to outpatient psychiatric services. Hospital course: 06/25/25: Continue with home medications. In my impression, patient may think that she just come here to get refill of her medication and will be sent home. However, other time she also stating that she has not come here for medication change as if she needs a refilled she can get it feel from her OP provider. Ativan 1 mg q.4 hours p.r.n. for severe anxiety. Home dose was only 0.5 b.i.d. p.r.n.. Stimulants: Continue with stimulants, we will monitor if it causing more psychotic behavior. Questioned if patient overused her Adderall information regarding recent weight lost, and be psychotic. 06/26/2025: Continue to encourage medication adherence and engagement. 06/27: accepting medications and requested prazosin 2mg be restarted 06/28 Patient is a limited historian due to disorganized speech and behavior. Throughout interview patient looking off in the distance, sometimes very latent responses, appearing to be internally preoccupied; frequently not finishing sentences, giving cryptic, vague and frequently unrelated responses to discussion questions. Inventory Specialist Manager introduces himself has a doctor... Patient then asks are you a Dr.? I am not a doctor. I am Daphne... On inquiry about why patient came to the hospital, she replies, with speech latency and in broken sentences I came... I wanted medications reviewed... And wanted a toxicology... The unknown.... Things got a little unhinged... The court room... Domestic stuff. Patient goes on I was looking for my medications at my house... Interviews, talking, trying to survive all the time... The reality of things is unclear to me... Of the events. Inventory Specialist Manager asks for clarification to which patient says, again after significant latency, the court house... I just want my [place] back... (she later clarifies that the [place] is a multi tool knife). Patient then started to refer to another patient, saying he wants a tape measure... I have one... I can hang out... There is time and things will be revealed... Whenever thing comes together... Family and judges and worldly stuff.. Inventory Specialist Manager asks about her earlier concern that her is poisoning her... Patient remained silent for awhile and then says I checked my meds... When I went to talk to them... I would like to see the toxicology... My back was sweating.. I was questioning reality generally... There was a 911 call... She then told keno writer/runner she questioned the reality of this conversation but could not clarify further but then some something about getting her red ticket.. Regarding how she got to the hospital, patient said officers came to my house and talked to my kids...my daughter called them...since i was not feeling safe.....i know my very well...it just wasnt a good think going on...i wasn't...no...it got real.....im in survival mode...it started getting scary and dangerous...my was getting a little...red flaggs...it started to be an unsafe situation..he [] was not himself... Patient also said that her best friend Stephanie Holder dropped her off at the hospital; not clear how she got here. Patient gave keno writer/runner permission to talk to Stephanie and also to collect information from her . denies drugs or taking her prescribed medications in excess denies hx manic episodes; yes AH but nothing to be alarmed about... Nurse Note by Karon Arora RN 06/25/25 09:54 - This RN spoke to [facility] regarding the situation that led to being present here in the ER. Per [facility] employee, yesterday there was an argument between the patient and her where both her and her received a crisis consult. Per [facility] employee, patient was originally seen by [facility] mobile crisis and it was determined she could go to respite, however, shortly after, crisis was called back to the home and the patient was sent here to the hospital. When the [facility] employee interviewed the pts 14 year old son, he reports that his mom has been acting really paranoid about things as of recently. (daughter 14yo, Son 11yo) 06/29 Patient remains with psychotic symptoms and said she thinks maybe he[] wants to kill or hurt me... Inventory Specialist Manager inquired and patient kept coming back to the fact that he put her home medications in the wrong pill box compartments... and this is what made her think he is trying to kill her... Patient however was willing to entertain that perhaps this might not be true. However, she is significantly more organized today than she was yesterday, talking in full sentences sticking to the topic at hand. She agrees that yesterday she was feeling much more confused she is thinking more clearly today. Patient's father present who has been meeting with her daily since this admission and who agrees that she is significantly better and headed back towards her regular self. Patient agreed to sign a CV and also agreed to have Vyvanse and bupropion discontinued for now; she also agreed to take risperidone which keno writer/runner explained was hopefully just for few days. IMPRESSION: Patient demonstrating psychotic symptoms, auditory hallucinations, paranoid delusions and disorganized speech and behavior; patient is certainly internally preoccupied. So far collateral reports that patient has no history of psychosis or bipolar disorder. After gathering collateral from patient's and father, both deny any history of psychosis or sukhdeep were similar such episodes. Both speculate patient may have abused prescription medications including Vyvanse (and reports may have used crack cocaine) accounting for triggering this episode. Frequently substance induced psychosis resolves within 1-2 days (though can also persist for 2 or more weeks); however patient has remained on both Vyvanse and Wellbutrin which could prolonged symptoms (as both can increase dopamine). Will hold both Vyvanse and Wellbutrin. Also started risperidone low-dose to help with dopamine blockade. 06/30 Patient remains with paranoid ideation; refused Risperdal. On inquiry patient said she does not think she needs it but keno writer/runner continue to educate patient on medication and she said she would start taking it. Patient with some increase disorganized behaviors today, seen self-dialoguing and responding to internal stimuli at 1 point standing aimlessly in hallway, not moving. Slept only 4 hours -hopefully patient will start taking risperidone 07/01 patient remains with intermittent odd and disorganized behaviors, talking to herself in the wetzel; remains with paranoid ideations however is able to be more logical in conversation and for longer periods of time. Patient's sister visiting who gave history that patient started to a peer to be manic about 5 months ago which correlates to increased Vyvanse dose (hyperactive, rapid speech, little sleep-which patient concurred); patient's sister volunteered that she has schizoaffective disorder and has been on medication which was a surprise to patient but with this news was willing to take Risperdal 07/02 patient doing much better. Patient is more organized in both speech and behavior. Patient did take Risperdal twice yesterday but found it made her tired and did not want it anymore. However she agrees it may have been helpful. Patient for the 1st time able to talk much more logically and accurately about history and shares with keno writer/runner that she has been diagnosed with bipolar disorder in the past and was at 1 point on Seroquel around 400 mg and then stabilized on Lamictal 200 mg. Patient said that she had been doing well for so long that her current psychiatric provider agreed to start peeling away her medications and Seroquel was lowered to 100 mg Lamictal tapered down to 50 mg. This taper coincided with patient being started on stimulant medication for ADHD and her Vyvanse was titrated. Patient agrees that it is very possible that the tapering off of Lamictal (she may have been on only Lamictal and not Seroquel for quite awhile) the titration of a stimulant medication is what triggered manic episode which worsened over the past few weeks and included significant paranoid ideations. Patient agrees to get back on Lamictal which caused no side effects. -remains with paranoid ideations about her but they are less intense and patient more open to reality testing; of note patient's does have schizophrenia 07/05 patient continues to be improved, overall organized in speech and behavior able to discuss diagnosis and treatment appropriately 07/06Patient more disorganized doing bizarre, odd hand movements during interview. Patient mimicking/mirroring the hand gestures of whomever is talking; some echolalia as well. Patient remains very vague when discussing her thoughts. Continues to have some paranoid ideations about her however patient's sister does agree that patient's is excessively controlling and for the past 2 years, the sister has noticed that he dictates how long and with whom patient can spend time. Patient struggles to have insight into her behaviors including when they are pointed out in real-time. However she does agree to start perphenazine\ -had discussed risks/side effects of antipsychotics 07/07 Patient denies any medications side effects. Continues to have disorganized in behaviors and now hiding in the corners of the hallway throughout the milieu; continues to mirror movements of others with intermittent echolalia. Remains very vague on what he is thinking and keeps saying she is just waiting for it to all come together. 07/08 Patient Increasingly disorganized; standing in the corner for hours, peering around it into the milieu, not talking. Patient guarded on approach. Initially refused perphenazine but was willing to discuss it with keno writer/runner and patient said she does not feel like herself and hoped that the medication would help repair that. Patient agreed to increasing perphenazine to 4 mg t.i.d. -regarding diagnosis, patient has past diagnosis of bipolar disorder which reportedly was treated with Lamictal and before that Seroquel. Patient is not particularly manic but is definitely with psychotic symptoms. Will provisionally change diagnosis to schizoaffective disorder 07/09 little better today with increased dose of perphenazine which patient has been taking. She denies medication side effects and agrees that medications are helpful Still odd but less so and seems to be more organized. Still with limited insight but reports she is feeling better and more like herself though can not specifically articulate why. Patient said she had a good talk with her daughter which was helpful; also talked with the telling him she wants to separate which she said was a long time coming -seems that perphenazine is helping; will continue 07/10 Patient agitated on the unit today and yelling in the hallway. Inventory Specialist Manager discussed this with patient who expresses concern about her being with her children. pt says she gave him bad news about their marriage and is worried about his mental state. She says he has had hallucinated/paranoid delusions about their son, a few years ago. Today, she can not say what he did or said that worried her...other than vague references to his composure...reactions...like he's not in touch with reality... But with no specifics...She agrees perhaps he could just be anxious... She also says she believes he has been unmedicated for a long time She then told her keno writer/runner that Juan Miguel [son] talks in code to me, like I asked 'what are you wearing to school today...' and he said 'my pink Allan shirt tomorrow...' but he does not have a pink allan shirt, which means he's talking to me in code... She said this exchange happened the week prior to this admission and that he is talking in code her so his father will not know. Patient then showed keno writer/runner a picture her son made which her brought in for her during this visit; she insisted him doing so was manipulative though keno writer/runner could not understand why; patient showed keno writer/runner a letter her wrote to her which was generally about how he is hoping for her and he wished to get help her. Patient says she thinks it is weird though keno writer/runner could not understand why. After this encounter with her , she l called PD for wellness check on son; check was completed and PD informed her that her son is OK. She signed a 3 day notice 07/11 Patient refuse perphenazine, last night and this morning. Patient barely slept and staff reports she was pacing the wetzel throughout the night. On inquiry patient said that the afternoon dose was making her feel tired; regarding the bedtime dose, she said she just does not want to take this medication and wants to try something different in the same category. Inventory Specialist Manager offered haloperidol with which she agreed. Impression: Patient remains with paranoid ideations and no insight into her own illness. She has some hypomanic behaviors; most of her problematic symptoms have been psychosis so have been focusing on antipsychotic however patient may benefit from traditional mood stabilizer; will continue to titrate Lamictal however this may not be adequate. Will hold Lexapro. -if patient willing will also consider increasing Seroquel at bedtime though concern is it would cause daytime sedation and she would refuse it. 07/12 little more organized, angry at her ; does not want Haldol, saying it makes her too sedated and agreed to Clozaril after reviewing risks/side effects -patient says she will retract her 3 day and stay a little longer 07/13 more odd behaviors today, wandering, sometimes hiding in hallway; other times social with peers. Pt witnessed self-dialouging in bedroom. Agrees to titration of clozapine. Agrees to remain on the unit longer for treatment -when patient takes perphenazine or Haldol, odd behaviors seemed to clear up; currently those have been discontinued and she is on low-dose of clozapine which is being titrated 07/14: Patient reports moderate anxiety. Denies depression. Denies paranoia. Denies SI/HI/AVH. Continue current treatment regimen. 07/15/25: Patient is not active engage in 1-1 assessment, walking the wetzel, asking this provider credential she is not legal . can you open the door? . Report to nurse that she find it helpful to distract her self by using headphone. Told nurse that she tries to have a good day. Appear sad, irritable, preoccupied and appear to be psychotic with mood swing, restless. Per nursing, patient slept for 5 hours, compliant with meds. Continue with current plan. 07/16/25: I am upset every morning and am upset now, but I don't want to talk about it. Team reports pt is upset about needing to be on the unit this weekend. Family meeting on 07/19. Pt allowed brief meeting with tw- discussed Clozapine increase by primary provider in preparation for discharge, she agrees and concurs. Team reports pt slept for ~6.5 hours. Described as anxious, guarded and labile Episodic yelling on the unit, after a telephone call with partner. Sat on the floor in the middle of the milieu, asking her primary RN to pick her up. Was able to get off the floor on her own and meet with keno writer/runner briefly, however, declined to discuss what was bothering her. Denies SI,HI,AH,VH- I am just pissed, you know? No new medical/diagnostic results. Back pain relieved with Ibuprofen Plan: Clozapine to increase to 100 mg tonight per primary provider. 07/17/25: Meet with patient in exam room. Report that anxiety is very high this morning. Says that she does not want to take PRN but she took it and report feeling better. Report trying to use coping skills such as listening to music, doing some art work and talk to staff and try not to explode . Patient is visible, less irritable and more cooperative, not question regarding this provider's capacity and title. Denies SI/SIB/HI/AVH. Can be labile. No medication changes. Per nursing, slept for 6 hours, compliant with meds. Denies side effects. Continue with current treatment plan. 07/18/25: Patient slept for 6 hours, frustrated being here. Increased anxiety this morning and not happy with her . Patient is the wetzel appear to be suspicious at the end of the wetzel, restless. She denies safety concerns, overwhelmed with coming family meeting, restless. Patient was on the phone with her , got very angry and upset, she started being loud talking about her . Able to redirect to talk to this provider in Group room C. Report that her told her she is not allowed to go home if you talk to me that way . Patient reports that her is not reasonable, not wanting to do family counseling regarding their marriage. She called him to just to talk to him in advance to prepare for tomorrow family meeting but at the end getting triggered by Scott . Patient was tearful, sad and irritable talking about her Patient accepted Ativan 1mg x1 to calm her down with good effects. 07/19 Patient remains with psychotic symptoms and remains guarded. Bizarre movements in the milieu. Today however was the 1st time she shared that she does have auditory hallucinations and will here words that at the moment she thinks are in reference to her, but she will around and see no one talking... she has not quite open to reality testing. Patient continues to have paranoid ideations. She remains quite guarded and mostly says I am just waiting for to all come together when asked further about psychotic symptoms. Patient agrees to increasing clozapine. She reports that she is starting to feel quite depressed which she thinks his partly situational, missing her kids but also just a deeper regular depression and she mentions that she has been off her Wellbutrin and Vyvanse and Lexapro. Inventory Specialist Manager discussed the reasons for this and the concern that restarting these too soon could exacerbate symptoms which she accepts and again agrees to increase clozapine; also agrees to continued Lamictal increase 07/20 Patient now back to mirroring various staff; continues with bizarre movements in hallway. Patient opened up a bit more about her thoughts. Regarding mirroring, she at 1st said it was a joke but then she acknowledged that it is not a joke... She shared that she thinks perhaps this admission is all a set up and that this is not a real hospital unit, that this keno writer/runner is not a real doctor and that the staff are all involved in this set up.. She could not explain why such as set up would be occurring and somehow her mirroring Staff is a part of this life. Inventory Specialist Manager attempted reality testing and patient was not opposed to it but says she is not sure if she believes that this keno writer/runner is a real doctor or that this is a real hospital wings; regarding the unit, she says it looks different, it set a part... It is not new... It is not a part of the hospital. Patient agreed to consider that this police might just be her mind playing tricks on her and keno writer/runner reassured her that all of this is in fact real and that she is being treated for in illness. She continues to report AH but remains vague about it. 07/21 remains with paranoid ideations, AH; will continue titrating clozapine 07/24 Impression: Patient remains psychotic with auditory hallucinations and paranoid ideations. While her behaviors themselves (internal preoccupation and self dialoguing; disorganized behaviors) and comments reveal the psychotic process, Up until now she has remained very guarded about sharing them. Patient has little insight, though she remains willing to remain on the unit continue with medication. Patient told keno writer/runner she has has a diagnosis of bipolar disorder and was manic/hypomanic for a few months prior to worsening psychotic symptoms (lowering of mood stabilizer and increasing of Vyvanse seemed to be the trigger); she used to be on Seroquel (400-600mg) but found it too sedating and cause significant weight gain and does not want to increase dose (using it for sleep only). While Patient did have some manic behaviors earlier in admission, it seems that the psychotic symptoms are independent of both sukhdeep and depression as they have been ongoing in between mood episodes and so will continue with diagnosis of schizoaffective disorder, bipolar type (but leave it as provisional dx). Patients severe trauma history is certainly contributory to her anxiety and paranoia. Regarding patient's lack of insight, yesterday she called her 11-year-old son and told him the only reason she is in the hospital was because of his father which significantly upset the son. Currently Patient remains too paranoid about her to adequately discuss her own symptoms and why she ended up hospitalized (though she has some sense that she was getting dysregulated). Patient remains fragile and she remain vulnerable to worsening psychosis or return of manic symptoms; she requires continued medication titration. She has significant paranoid ideations about her and has already lost full access to her children via DCF, and can now only see them when supervised; if she were to discharge now, her ongoing symptoms place her at high risk for further DCF intervention. Given her lack of insight, paranoid ideations towards her and paranoid belief that this admission is a set up Patient is at high risk for unsafe behaviors in the community and requires continued inpatient stay for treatment. Regarding medication management, will continue to titrate clozapine since she is tolerating it and it is helpful for both psychosis and bipolar disorder (including bipolar depression). Would like to restart Wellbutrin for depression however will try to get AH under better control 1st; will hold off on Lexapro until mood stabilizing medications are at therapeutic doses so as not to trigger manic episode. 07/22 Patient remains with paranoid ideations and told keno writer/runner today that she is fully convinced that she is here on the unit as the focal point of a conspiracy with staff and pretend patients all in on it playing a game at her expense. She said she is feeling tired of playing the game and she just not going to right now. Inventory Specialist Manager asked for an example and she said that there was water on the floor which she had to walk around and not get emotionally dysregulated; she explained that the water was purposely but there to test her. Inventory Specialist Manager continued to provide education to the contrary that she is being psychiatrically treated on a true psychiatric unit. It is difficult to tell if patient has some insight in that she needs treatment and medication or if she is accepting treatment/medication as part of playing the game... At any rate she agrees to increase Clozaril. She said she is feeling tired in the morning and so keno writer/runner agreed to try and see if she could tolerate restarting Wellbutrin. -patient expressing depressed feelings and feeling tired in the morning which make sense as she is off both Wellbutrin and Vyvanse; will restart Wellbutrin to help with daytime tiredness and depression at the risk of exacerbating psychotic symptoms. Starting at a low-dose is minimal risk and keno writer/runner considers it worth restarting this medication to avoid patient becoming disinterested in clozapine -retracted 3 day notice 07/23 No change in presentation; patient remains self dialouging. Patient continues to believe the people on the unit are actors part of a set up scheme, pretending to be a psychiatric unit. Patient pointed out different staff that she is unable to tell if they are part of the scheme or not -continue clozapine titration -today started Wellbutrin XL 150 mg since patient complaining of depression and tiredness; hoping that this does not exacerbate psychotic symptoms 07/24/25:Reviewed with team, plan of care reviewed, pt allowed a brief interaction stating she was doing OK and denied current issues or concerns. She is visable in milieu, talkative with select peers, spending a lot of time looking out of the wetzel windows. Team reports she feels we are playing games with her. Approached about this issue-she denied 07/25/25: Team reports pt refused Clozapine last night. Discussed with pt. You know, I woke up feeling like me today. When I take it I feel incoherent, too sedated . Discussed that refusals may increase her in pt time. We agreed to a decrease from 225 to 200 this evening. 07/26 Patient remains fully convinced that this keno writer/runner is not a real doctor, the unit does not a real psychiatric unit and that the patients and staff are part of enact, designed to somehow play a game with her of which she is the main character. Patient is clear on this with keno writer/runner. Inventory Specialist Manager again attempted reality testing clearly discussing her illness and treatment for; she does not necessarily disagree but it is difficult to know her level of insight into her own illness. Inventory Specialist Manager discussed the the significant concern were she to discharge now and patient agrees to remain on the unit and continue with treatment -over the weekend, she refused clozapine on Saturday; however she said she will continue taking it 07/27 patient refuses Clozaril without much reasoning; agrees to start Vraylar; remains without any insight and with paranoid delusions 07/29 pt reports she's getting used to it here... and volunteers that she believes keno writer/runner is a real doctor and that this is a real hospital. She says no med side-effects. Denies AVH. -increasing Lamictal to 200mg -not sure if patients sudden realization that this is a real hospital/admission is authentic or pt saying what she thinks keno writer/runner wants to hear 07/30 seems to be little more organized, less guarded and more relaxed. Continue treatment plan 07/31 still internally preoccupied but more open, less guarded. Shared about struggles with relationship with . -will continue with Vraylar 3mg for now before increasing dose Plan cv q15 Increased to Vraylar 3 mg Discontinue clozapine 300 mg q.h.s.; patient refuses Started Wellbutrin XL 150 mg daily continue Seroquel 100 at bedtime for sleep (perhaps can eventually get off this and just use clozapine). Increased Lamictal to 200 mg: Used to be on 200 and has been on 50 mg for months BuSpar 15 mg twice a day. Clonidine prn HOLD Wellbutrin 300 mg daily: To avoid exacerbating psychotic symptoms HOLD Lexapro 10 mg daily since hypomanic behaviors HOLD Vyvanse DC perphenazine; patient did not want it, saying it made her sedated DC risperidone; patient does not like and patient is improved DC Haldol; said made too sedating P.R.N. Zyprexa 5mg q.4 hours p.r.n. for agitation/psychosis Patient educated on: diagnosis, medication risk/benefits and therapeutic strategies Informed Consent: understands, does not understand and further education needed Reason for continued inpatient stay Substantial Risk for: rapid decompensation Time Spent With Patient Time: Total time managing care of this patient today ____ minutes.
[2025-07-31 19:57] VITALS: BP 144/63; PULSE 104; RESP 15; TEMP 36.9; O2SAT 100
[2025-08-01 07:45] VITALS: BP 128/76; PULSE 97; TEMP 37.1; O2SAT 100
[2025-08-01] MEDS: buPROPion HCl XL 150 MG TAB.ER.24H PO (08:38)
--- NOTE | 2025-08-01 10:19 | HO.PSYCHPN ---
Subjective Subjective Date of Service: 08/01/25 Reason For Visit: Recurrent major depression with psychosis Interim History: Met with patient; discussed with team Patient overall more calm today. She asked continuity writer some questions about treatment and agreed with medication plan, saying she was feeling overall better. Patient discussed how she has to think this continuity writer was not a real doctor but has come to realize that this continuity writer, patient's, the unit are all real and that she was admitted for psychotic symptoms. She thinks perhaps her delusional ideas were largely fueled by her trauma history as well as knowing that her had once been psychiatrically admitted on this same unit. Mental Status Exam Mental Status Exam Narrative: Pt is alert and oriented; behavior is improved behavioral and impulse control; today no obvious odd behaviors and patient remains cooperative, friendly and calm on approach and social with peers; patient is not in distress; dressed in casual attire with adequate grooming and hygiene; mood is described as good and affect congruent, more calm; eye contact appropriate; Speech is normal rate, volume and prosody and not pressured; today no psychomotor agitation/retardation present; thought process is more organized; Thought content is on tx, her diagnosis; no delusional thinking expressed and responding to reality testing; denies any SI/HI. Denies AVH and if internally preoccupied, much less so Patients insight and judgment improving Diagnostics Vital Signs (24Hr): Vital Signs - 24 hr 07/31/25 19:57 08/01/25 07:45 Temperature 98.4 F 98.7 F Pulse Rate 104 H 97 Respiratory Rate 15 Blood Pressure 144/63 H 128/76 Pulse Oximetry 100 100 Oxygen Delivery Method Room Air BMI result Body Mass Index 23.0 Labs 06/30/25 07:49 06/30/25 07:49 Medications Medications Current Medications Acetaminophen (Acetaminophen 325 Mg Tablet) 650 mg PO Q6H PRN PRN Reason: Headache/Pain, Scale 1-10 Last Admin: 07/25/25 10:00 Dose: 650 mg Al Hydroxide/Mg Hydroxide (Magnesium Hydrox/Alum Hydrox 30 Ml Oral.Susp) 30 ml PO Q6H PRN PRN Reason: Heartburn/Nausea Ascorbic Acid (Ascorbic Acid 250 Mg Tablet) 250 mg PO DAILY [facility] Last Admin: 08/01/25 08:38 Dose: 250 mg Bupropion HCl (Bupropion Hcl Xl 150 Mg Tab.Er.24h) 150 mg PO DAILY [facility] Last Admin: 08/01/25 08:38 Dose: 150 mg Buspirone HCl (Buspirone Hcl 5 Mg Tablet) 15 mg PO BID [facility] Last Admin: 08/01/25 08:38 Dose: 15 mg Cariprazine (Cariprazine Hcl 3 Mg Capsule) 3 mg PO DAILY [facility] Last Admin: 08/01/25 08:38 Dose: 3 mg Clonidine HCl (Clonidine Hcl 0.1 Mg Tablet) 0.1 mg PO Q4H PRN; Protocol PRN Reason: moderate anxiety Last Admin: 08/01/25 09:04 Dose: 0.1 mg Cyclobenzaprine HCl (Cyclobenzaprine Hcl 10 Mg Tablet) 10 mg PO TID PRN PRN Reason: Muscle Spasm Last Admin: 07/31/25 14:51 Dose: 10 mg Fluticasone Propionate (Fluticasone Propionate Nasal 16 Gm [place]) 1 spray NOSTRIL-B BID PRN PRN Reason: sinus congestion Last Admin: 07/27/25 15:38 Dose: 1 spray Hydroxyzine HCl (Hydroxyzine Hcl 25 Mg Tablet) 25 mg PO Q6H PRN PRN Reason: mild anxiety Last Admin: 07/31/25 11:14 Dose: 25 mg Ibuprofen (Ibuprofen 600 Mg Tablet) 600 mg PO Q6H PRN PRN Reason: Pain, Severe (Pain Scale 7-10) Last Admin: 08/01/25 00:04 Dose: 600 mg Lamotrigine (Lamotrigine 100 Mg Tablet) 200 mg PO BEDTIME [facility] Last Admin: 08/01/25 00:02 Dose: 200 mg Levothyroxine Sodium (Levothyroxine Sodium 75 Mcg Tablet) 75 mcg PO DAILY@0600 [facility] Last Admin: 08/01/25 06:38 Dose: 75 mcg Lidocaine HCl (Lidocaine 4 % Cream Kit) 1 appl TOPICAL ONCE PRN; Protocol PRN Reason: lower back pain Last Admin: 07/29/25 09:08 Dose: 1 appl Lorazepam (Lorazepam 0.5 Mg Tablet) 0.5 mg PO DAILY PRN PRN Reason: severe anxiety Last Admin: 07/31/25 11:14 Dose: 0.5 mg Magnesium Hydroxide (Milk Of Magnesia 30 Ml Oral.Susp) 30 ml PO DAILY PRN PRN Reason: Constipation Multivitamins/Vitamin C (Multivitamin Tablet) 1 tab PO DAILY [facility] Last Admin: 08/01/25 08:38 Dose: 1 tab Nicotine Polacrilex (Nicotine Polacrilex 2 Mg Gum) 4 mg BUCCAL Q2H PRN PRN Reason: Nicotine Cravings Prazosin HCl (Prazosin Hcl 1 Mg Capsule) 2 mg PO BEDTIME RATNA; Protocol Last Admin: 08/01/25 00:01 Dose: 2 mg Quetiapine Fumarate (Quetiapine Fumarate 100 Mg Tablet) 100 mg PO BEDTIME RATNA Last Admin: 08/01/25 00:02 Dose: 100 mg Risperidone (Risperidone 1 Mg Tablet) 1 mg PO DAILY PRN PRN Reason: disorganized behavior Trazodone HCl (Trazodone Hcl 50 Mg Tablet) 50 mg PO BEDTIME MRX1 PRN PRN Reason: Insomnia Allergies Allergies Allergy/AdvReac Type Severity Reaction Status Date / Time No Known Allergies Allergy Verified 06/24/25 17:49 Assessment & Plan Assessment & Plan (1) Schizoaffective disorder, bipolar type: Status: Acute Code(s): F25.0 - Schizoaffective disorder, bipolar type (2) Depression: Status: Acute Code(s): F32.A - Depression, unspecified (3) PTSD (post-traumatic stress disorder): Status: Acute Code(s): F43.10 - Post-traumatic stress disorder, unspecified Plan HPI: Pt is a 40 year old female who presented to the ED after being dropped off by a friend . Upon arrival to the ED she appeared increasingly paranoid and indicated that she was fearful she was being drugged by her and voiced concern for her and her children's safety. Pt stated that she wanted to have her medications checked as things are just off, my daily routine is off . Pt provided inconsistent information as evidence by conflicting information from what she disclosed to the ED provider upon arrival and at times appears to be a poor historian as a result of her current presentation. She remained guarded at this time and at times appeared to be minimizing symptoms as well as medication seeking as she remained primarily focused on her controlled substances that she is currently prescribed. It is to be noted. Formulation/clinical reasoning: Increasing psychotic behaviors, paranoid, disorganized thought process. Family members have safety concern regarding patient mental status at this current time. Even the above information, patient will be benefit in restrictive environment, medication management, and refer patient back to outpatient psychiatric services. Hospital course: 06/25/25: Continue with home medications. In my impression, patient may think that she just come here to get refill of her medication and will be sent home. However, other time she also stating that she has not come here for medication change as if she needs a refilled she can get it feel from her OP provider. Ativan 1 mg q.4 hours p.r.n. for severe anxiety. Home dose was only 0.5 b.i.d. p.r.n.. Stimulants: Continue with stimulants, we will monitor if it causing more psychotic behavior. Questioned if patient overused her Adderall information regarding recent weight lost, and be psychotic. 06/26/2025: Continue to encourage medication adherence and engagement. 06/27: accepting medications and requested prazosin 2mg be restarted 06/28 Patient is a limited historian due to disorganized speech and behavior. Throughout interview patient looking off in the distance, sometimes very latent responses, appearing to be internally preoccupied; frequently not finishing sentences, giving cryptic, vague and frequently unrelated responses to discussion questions. Art Framing Manager introduces himself has a doctor... Patient then asks are you a Dr.? I am not a doctor. I am Daphne... On inquiry about why patient came to the hospital, she replies, with speech latency and in broken sentences I came... I wanted medications reviewed... And wanted a toxicology... The unknown.... Things got a little unhinged... The court room... Domestic stuff. Patient goes on I was looking for my medications at my house... Interviews, talking, trying to survive all the time... The reality of things is unclear to me... Of the events. Art Framing Manager asks for clarification to which patient says, again after significant latency, the court house... I just want my Girard back... (she later clarifies that the Girard is a multi tool knife). Patient then started to refer to another patient, saying he wants a tape measure... I have one... I can hang out... There is time and things will be revealed... Whenever thing comes together... Family and judges and worldly stuff.. Art Framing Manager asks about her earlier concern that her is poisoning her... Patient remained silent for awhile and then says I checked my meds... When I went to talk to them... I would like to see the toxicology... My back was sweating.. I was questioning reality generally... There was a 911 call... She then told continuity writer she questioned the reality of this conversation but could not clarify further but then some something about getting her red ticket.. Regarding how she got to the hospital, patient said officers came to my house and talked to my kids...my daughter called them...since i was not feeling safe.....i know my very well...it just wasnt a good think going on...i wasn't...no...it got real.....im in survival mode...it started getting scary and dangerous...my was getting a little...red flaggs...it started to be an unsafe situation..he [] was not himself... Patient also said that her best friend Stephanie Holder dropped her off at the hospital; not clear how she got here. Patient gave continuity writer permission to talk to Stephanie and also to collect information from her . denies drugs or taking her prescribed medications in excess denies hx manic episodes; yes AH but nothing to be alarmed about... Nurse Note by Karon Arora RN 06/25/25 09:54 - This RN spoke to [facility] regarding the situation that led to being present here in the ER. Per [facility] employee, yesterday there was an argument between the patient and her where both her and her received a crisis consult. Per [facility] employee, patient was originally seen by [facility] crisis and it was determined she could go to respite, however, shortly after, crisis was called back to the home and the patient was sent here to the hospital. When the [facility] employee interviewed the pts 14 year old son, he reports that his mom has been acting really paranoid about things as of recently. (daughter 14yo, Son 11yo) 06/29 Patient remains with psychotic symptoms and said she thinks maybe he[] wants to kill or hurt me... Art Framing Manager inquired and patient kept coming back to the fact that he put her home medications in the wrong pill box compartments... and this is what made her think he is trying to kill her... Patient however was willing to entertain that perhaps this might not be true. However, she is significantly more organized today than she was yesterday, talking in full sentences sticking to the topic at hand. She agrees that yesterday she was feeling much more confused she is thinking more clearly today. Patient's father present who has been meeting with her daily since this admission and who agrees that she is significantly better and headed back towards her regular self. Patient agreed to sign a CV and also agreed to have Vyvanse and bupropion discontinued for now; she also agreed to take risperidone which continuity writer explained was hopefully just for few days. IMPRESSION: Patient demonstrating psychotic symptoms, auditory hallucinations, paranoid delusions and disorganized speech and behavior; patient is certainly internally preoccupied. So far collateral reports that patient has no history of psychosis or bipolar disorder. After gathering collateral from patient's and father, both deny any history of psychosis or sukhdeep were similar such episodes. Both speculate patient may have abused prescription medications including Vyvanse (and reports may have used crack cocaine) accounting for triggering this episode. Frequently substance induced psychosis resolves within 1-2 days (though can also persist for 2 or more weeks); however patient has remained on both Vyvanse and Wellbutrin which could prolonged symptoms (as both can increase dopamine). Will hold both Vyvanse and Wellbutrin. Also started risperidone low-dose to help with dopamine blockade. 06/30 Patient remains with paranoid ideation; refused Risperdal. On inquiry patient said she does not think she needs it but continuity writer continue to educate patient on medication and she said she would start taking it. Patient with some increase disorganized behaviors today, seen self-dialoguing and responding to internal stimuli at 1 point standing aimlessly in hallway, not moving. Slept only 4 hours -hopefully patient will start taking risperidone 07/01 patient remains with intermittent odd and disorganized behaviors, talking to herself in the wetzel; remains with paranoid ideations however is able to be more logical in conversation and for longer periods of time. Patient's sister visiting who gave history that patient started to a peer to be manic about 5 months ago which correlates to increased Vyvanse dose (hyperactive, rapid speech, little sleep-which patient concurred); patient's sister volunteered that she has schizoaffective disorder and has been on medication which was a surprise to patient but with this news was willing to take Risperdal 07/02 patient doing much better. Patient is more organized in both speech and behavior. Patient did take Risperdal twice yesterday but found it made her tired and did not want it anymore. However she agrees it may have been helpful. Patient for the 1st time able to talk much more logically and accurately about history and shares with continuity writer that she has been diagnosed with bipolar disorder in the past and was at 1 point on Seroquel around 400 mg and then stabilized on Lamictal 200 mg. Patient said that she had been doing well for so long that her current psychiatric provider agreed to start peeling away her medications and Seroquel was lowered to 100 mg Lamictal tapered down to 50 mg. This taper coincided with patient being started on stimulant medication for ADHD and her Vyvanse was titrated. Patient agrees that it is very possible that the tapering off of Lamictal (she may have been on only Lamictal and not Seroquel for quite awhile) the titration of a stimulant medication is what triggered manic episode which worsened over the past few weeks and included significant paranoid ideations. Patient agrees to get back on Lamictal which caused no side effects. -remains with paranoid ideations about her but they are less intense and patient more open to reality testing; of note patient's does have schizophrenia 07/05 patient continues to be improved, overall organized in speech and behavior able to discuss diagnosis and treatment appropriately 07/06Patient more disorganized doing bizarre, odd hand movements during interview. Patient mimicking/mirroring the hand gestures of whomever is talking; some echolalia as well. Patient remains very vague when discussing her thoughts. Continues to have some paranoid ideations about her however patient's sister does agree that patient's is excessively controlling and for the past 2 years, the sister has noticed that he dictates how long and with whom patient can spend time. Patient struggles to have insight into her behaviors including when they are pointed out in real-time. However she does agree to start perphenazine\ -had discussed risks/side effects of antipsychotics 07/07 Patient denies any medications side effects. Continues to have disorganized in behaviors and now hiding in the corners of the hallway throughout the milieu; continues to mirror movements of others with intermittent echolalia. Remains very vague on what he is thinking and keeps saying she is just waiting for it to all come together. 07/08 Patient Increasingly disorganized; standing in the corner for hours, peering around it into the milieu, not talking. Patient guarded on approach. Initially refused perphenazine but was willing to discuss it with continuity writer and patient said she does not feel like herself and hoped that the medication would help repair that. Patient agreed to increasing perphenazine to 4 mg t.i.d. -regarding diagnosis, patient has past diagnosis of bipolar disorder which reportedly was treated with Lamictal and before that Seroquel. Patient is not particularly manic but is definitely with psychotic symptoms. Will provisionally change diagnosis to schizoaffective disorder 07/09 little better today with increased dose of perphenazine which patient has been taking. She denies medication side effects and agrees that medications are helpful Still odd but less so and seems to be more organized. Still with limited insight but reports she is feeling better and more like herself though can not specifically articulate why. Patient said she had a good talk with her daughter which was helpful; also talked with the telling him she wants to separate which she said was a long time coming -seems that perphenazine is helping; will continue 07/10 Patient agitated on the unit today and yelling in the hallway. Art Framing Manager discussed this with patient who expresses concern about her being with her children. pt says she gave him bad news about their marriage and is worried about his mental state. She says he has had hallucinated/paranoid delusions about their son, a few years ago. Today, she can not say what he did or said that worried her...other than vague references to his composure...reactions...like he's not in touch with reality... But with no specifics...She agrees perhaps he could just be anxious... She also says she believes he has been unmedicated for a long time She then told her continuity writer that Juan Miguel [son] talks in code to me, like I asked 'what are you wearing to school today...' and he said 'my pink Allan shirt tomorrow...' but he does not have a pink allan shirt, which means he's talking to me in code... She said this exchange happened the week prior to this admission and that he is talking in code her so his father will not know. Patient then showed continuity writer a picture her son made which her brought in for her during this visit; she insisted him doing so was manipulative though continuity writer could not understand why; patient showed continuity writer a letter her wrote to her which was generally about how he is hoping for her and he wished to get help her. Patient says she thinks it is weird though continuity writer could not understand why. After this encounter with her , she l called PD for wellness check on son; check was completed and PD informed her that her son is OK. She signed a 3 day notice 07/11 Patient refuse perphenazine, last night and this morning. Patient barely slept and staff reports she was pacing the wetzel throughout the night. On inquiry patient said that the afternoon dose was making her feel tired; regarding the bedtime dose, she said she just does not want to take this medication and wants to try something different in the same category. Art Framing Manager offered haloperidol with which she agreed. Impression: Patient remains with paranoid ideations and no insight into her own illness. She has some hypomanic behaviors; most of her problematic symptoms have been psychosis so have been focusing on antipsychotic however patient may benefit from traditional mood stabilizer; will continue to titrate Lamictal however this may not be adequate. Will hold Lexapro. -if patient willing will also consider increasing Seroquel at bedtime though concern is it would cause daytime sedation and she would refuse it. 07/12 little more organized, angry at her ; does not want Haldol, saying it makes her too sedated and agreed to Clozaril after reviewing risks/side effects -patient says she will retract her 3 day and stay a little longer 07/13 more odd behaviors today, wandering, sometimes hiding in hallway; other times social with peers. Pt witnessed self-dialouging in bedroom. Agrees to titration of clozapine. Agrees to remain on the unit longer for treatment -when patient takes perphenazine or Haldol, odd behaviors seemed to clear up; currently those have been discontinued and she is on low-dose of clozapine which is being titrated 07/14: Patient reports moderate anxiety. Denies depression. Denies paranoia. Denies SI/HI/AVH. Continue current treatment regimen. 07/15/25: Patient is not active engage in 1-1 assessment, walking the wetzel, asking this provider credential she is not legal . can you open the door? . Report to nurse that she find it helpful to distract her self by using headphone. Told nurse that she tries to have a good day. Appear sad, irritable, preoccupied and appear to be psychotic with mood swing, restless. Per nursing, patient slept for 5 hours, compliant with meds. Continue with current plan. 07/16/25: I am upset every morning and am upset now, but I don't want to talk about it. Team reports pt is upset about needing to be on the unit this weekend. Family meeting on 07/19. Pt allowed brief meeting with tw- discussed Clozapine increase by primary provider in preparation for discharge, she agrees and concurs. Team reports pt slept for ~6.5 hours. Described as anxious, guarded and labile Episodic yelling on the unit, after a telephone call with partner. Sat on the floor in the middle of the milieu, asking her primary RN to pick her up. Was able to get off the floor on her own and meet with continuity writer briefly, however, declined to discuss what was bothering her. Denies SI,HI,AH,VH- I am just pissed, you know? No new medical/diagnostic results. Back pain relieved with Ibuprofen Plan: Clozapine to increase to 100 mg tonight per primary provider. 07/17/25: Meet with patient in exam room. Report that anxiety is very high this morning. Says that she does not want to take PRN but she took it and report feeling better. Report trying to use coping skills such as listening to music, doing some art work and talk to staff and try not to explode . Patient is visible, less irritable and more cooperative, not question regarding this provider's capacity and title. Denies SI/SIB/HI/AVH. Can be labile. No medication changes. Per nursing, slept for 6 hours, compliant with meds. Denies side effects. Continue with current treatment plan. 07/18/25: Patient slept for 6 hours, frustrated being here. Increased anxiety this morning and not happy with her . Patient is the wetzel appear to be suspicious at the end of the wetzel, restless. She denies safety concerns, overwhelmed with coming family meeting, restless. Patient was on the phone with her , got very angry and upset, she started being loud talking about her . Able to redirect to talk to this provider in Group room C. Report that her told her she is not allowed to go home if you talk to me that way . Patient reports that her is not reasonable, not wanting to do family counseling regarding their marriage. She called him to just to talk to him in advance to prepare for tomorrow family meeting but at the end getting triggered by Scott . Patient was tearful, sad and irritable talking about her Patient accepted Ativan 1mg x1 to calm her down with good effects. 07/19 Patient remains with psychotic symptoms and remains guarded. Bizarre movements in the milieu. Today however was the 1st time she shared that she does have auditory hallucinations and will here words that at the moment she thinks are in reference to her, but she will around and see no one talking... she has not quite open to reality testing. Patient continues to have paranoid ideations. She remains quite guarded and mostly says I am just waiting for to all come together when asked further about psychotic symptoms. Patient agrees to increasing clozapine. She reports that she is starting to feel quite depressed which she thinks his partly situational, missing her kids but also just a deeper regular depression and she mentions that she has been off her Wellbutrin and Vyvanse and Lexapro. Art Framing Manager discussed the reasons for this and the concern that restarting these too soon could exacerbate symptoms which she accepts and again agrees to increase clozapine; also agrees to continued Lamictal increase 07/20 Patient now back to mirroring various staff; continues with bizarre movements in hallway. Patient opened up a bit more about her thoughts. Regarding mirroring, she at 1st said it was a joke but then she acknowledged that it is not a joke... She shared that she thinks perhaps this admission is all a set up and that this is not a real hospital unit, that this continuity writer is not a real doctor and that the staff are all involved in this set up.. She could not explain why such as set up would be occurring and somehow her mirroring Staff is a part of this life. Art Framing Manager attempted reality testing and patient was not opposed to it but says she is not sure if she believes that this continuity writer is a real doctor or that this is a real hospital wings; regarding the unit, she says it looks different, it set a part... It is not new... It is not a part of the hospital. Patient agreed to consider that this police might just be her mind playing tricks on her and continuity writer reassured her that all of this is in fact real and that she is being treated for in illness. She continues to report AH but remains vague about it. 07/21 remains with paranoid ideations, AH; will continue titrating clozapine 07/24 Impression: Patient remains psychotic with auditory hallucinations and paranoid ideations. While her behaviors themselves (internal preoccupation and self dialoguing; disorganized behaviors) and comments reveal the psychotic process, Up until now she has remained very guarded about sharing them. Patient has little insight, though she remains willing to remain on the unit continue with medication. Patient told continuity writer she has has a diagnosis of bipolar disorder and was manic/hypomanic for a few months prior to worsening psychotic symptoms (lowering of mood stabilizer and increasing of Vyvanse seemed to be the trigger); she used to be on Seroquel (400-600mg) but found it too sedating and cause significant weight gain and does not want to increase dose (using it for sleep only). While Patient did have some manic behaviors earlier in admission, it seems that the psychotic symptoms are independent of both sukhdeep and depression as they have been ongoing in between mood episodes and so will continue with diagnosis of schizoaffective disorder, bipolar type (but leave it as provisional dx). Patients severe trauma history is certainly contributory to her anxiety and paranoia. Regarding patient's lack of insight, yesterday she called her 11-year-old son and told him the only reason she is in the hospital was because of his father which significantly upset the son. Currently Patient remains too paranoid about her to adequately discuss her own symptoms and why she ended up hospitalized (though she has some sense that she was getting dysregulated). Patient remains fragile and she remain vulnerable to worsening psychosis or return of manic symptoms; she requires continued medication titration. She has significant paranoid ideations about her and has already lost full access to her children via DCF, and can now only see them when supervised; if she were to discharge now, her ongoing symptoms place her at high risk for further DCF intervention. Given her lack of insight, paranoid ideations towards her and paranoid belief that this admission is a set up Patient is at high risk for unsafe behaviors in the community and requires continued inpatient stay for treatment. Regarding medication management, will continue to titrate clozapine since she is tolerating it and it is helpful for both psychosis and bipolar disorder (including bipolar depression). Would like to restart Wellbutrin for depression however will try to get AH under better control 1st; will hold off on Lexapro until mood stabilizing medications are at therapeutic doses so as not to trigger manic episode. 07/22 Patient remains with paranoid ideations and told continuity writer today that she is fully convinced that she is here on the unit as the focal point of a conspiracy with staff and pretend patients all in on it playing a game at her expense. She said she is feeling tired of playing the game and she just not going to right now. Art Framing Manager asked for an example and she said that there was water on the floor which she had to walk around and not get emotionally dysregulated; she explained that the water was purposely but there to test her. Art Framing Manager continued to provide education to the contrary that she is being psychiatrically treated on a true psychiatric unit. It is difficult to tell if patient has some insight in that she needs treatment and medication or if she is accepting treatment/medication as part of playing the game... At any rate she agrees to increase Clozaril. She said she is feeling tired in the morning and so continuity writer agreed to try and see if she could tolerate restarting Wellbutrin. -patient expressing depressed feelings and feeling tired in the morning which make sense as she is off both Wellbutrin and Vyvanse; will restart Wellbutrin to help with daytime tiredness and depression at the risk of exacerbating psychotic symptoms. Starting at a low-dose is minimal risk and continuity writer considers it worth restarting this medication to avoid patient becoming disinterested in clozapine -retracted 3 day notice 07/23 No change in presentation; patient remains self dialouging. Patient continues to believe the people on the unit are actors part of a set up scheme, pretending to be a psychiatric unit. Patient pointed out different staff that she is unable to tell if they are part of the scheme or not -continue clozapine titration -today started Wellbutrin XL 150 mg since patient complaining of depression and tiredness; hoping that this does not exacerbate psychotic symptoms 07/24/25:Reviewed with team, plan of care reviewed, pt allowed a brief interaction stating she was doing OK and denied current issues or concerns. She is visable in milieu, talkative with select peers, spending a lot of time looking out of the wetzel windows. Team reports she feels we are playing games with her. Approached about this issue-she denied 07/25/25: Team reports pt refused Clozapine last night. Discussed with pt. You know, I woke up feeling like me today. When I take it I feel incoherent, too sedated . Discussed that refusals may increase her in pt time. We agreed to a decrease from 225 to 200 this evening. 07/26 Patient remains fully convinced that this continuity writer is not a real doctor, the unit does not a real psychiatric unit and that the patients and staff are part of enact, designed to somehow play a game with her of which she is the main character. Patient is clear on this with continuity writer. Art Framing Manager again attempted reality testing clearly discussing her illness and treatment for; she does not necessarily disagree but it is difficult to know her level of insight into her own illness. Art Framing Manager discussed the the significant concern were she to discharge now and patient agrees to remain on the unit and continue with treatment -over the weekend, she refused clozapine on Saturday; however she said she will continue taking it 07/27 patient refuses Clozaril without much reasoning; agrees to start Vraylar; remains without any insight and with paranoid delusions 07/29 pt reports she's getting used to it here... and volunteers that she believes continuity writer is a real doctor and that this is a real hospital. She says no med side-effects. Denies AVH. -increasing Lamictal to 200mg -not sure if patients sudden realization that this is a real hospital/admission is authentic or pt saying what she thinks continuity writer wants to hear 07/30 seems to be little more organized, less guarded and more relaxed. Continue treatment plan 07/31 still internally preoccupied but more open, less guarded. Shared about struggles with relationship with . -will continue with Vraylar 3mg for now before increasing dose 08/01 Patient overall more calm today. She asked continuity writer some questions about treatment and agreed with medication plan, saying she was feeling overall better. Patient discussed how she has to think this continuity writer was not a real doctor but has come to realize that this continuity writer, patient's, the unit are all real and that she was admitted for psychotic symptoms. She thinks perhaps her delusional ideas were largely fueled by her trauma history as well as knowing that her had once been psychiatrically admitted on this same unit. Patient asked for Seroquel to be lowered to 75 mg with which continuity writer agreed -although still very early on, continuity writer is cautiously hopeful Plan cv q15 Continue Vraylar 3 mg Continue Wellbutrin XL 150 mg daily (normally on 300 mg) Lowered to Seroquel 75 at bedtime for sleep (perhaps can eventually get off this and just use clozapine). Continue Lamictal to 200 mg: Continue BuSpar 15 mg twice a day. Continue Clonidine prn HOLD Lexapro 10 mg daily since hypomanic behaviors HOLD Vyvanse DC perphenazine; patient did not want it, saying it made her sedated DC risperidone; patient does not like and patient is improved DC Haldol; said made too sedating DC clozapine 300 mg q.h.s.; patient refuses Patient educated on: diagnosis, medication risk/benefits and therapeutic strategies Informed Consent: understands, does not understand and further education needed Reason for continued inpatient stay Substantial Risk for: rapid decompensation Time Spent With Patient Time: Total time managing care of this patient today ____ minutes.
[2025-08-01 19:57] VITALS: BP 116/87; PULSE 78; RESP 15; TEMP 37; O2SAT 99
[2025-08-02 08:00] VITALS: BP 117/73; PULSE 85; RESP 18; TEMP 37.1; O2SAT 98
[2025-08-02 08:14] LABS: Neut%MD 53.8 %; WBCANC 9.9 X10*3/uL
[2025-08-02] MEDS: buPROPion HCl XL 150 MG TAB.ER.24H PO (09:33)
--- NOTE | 2025-08-02 09:37 | HO.PSYCHPN ---
Subjective Subjective Date of Service: 08/02/25 Reason For Visit: Recurrent major depression with psychosis Interim History: Met with Patient; discussed with team Patient reports feeling overall better. Sad missing her daughter's birthday. Confirms she realizes this admission is real and not an experiment. Acknowledges that she was confused prior to coming to the hospital. Feels that Vraylar is helpful and wants to continue feeling that with it she might not need to be back on Lexapro Mental Status Exam Mental Status Exam Narrative: Pt is alert and oriented; behavior is improved behavioral and impulse control; today no obvious odd behaviors and patient remains cooperative, friendly and calm on approach and social with peers; patient is not in distress; dressed in casual attire with adequate grooming and hygiene; mood is described as good and affect congruent, more calm; eye contact appropriate; Speech is normal rate, volume and prosody and not pressured; today no psychomotor agitation/retardation present; thought process is more organized; Thought content is on tx, her diagnosis; no delusional thinking expressed and responding to reality testing; denies any SI/HI. Denies AVH and if internally preoccupied, much less so Patients insight and judgment improved Diagnostics Vital Signs (24Hr): Vital Signs - 24 hr 08/01/25 19:57 08/02/25 08:00 Temperature 98.6 F 98.7 F Pulse Rate 78 85 Respiratory Rate 15 18 Blood Pressure 116/87 117/73 Pulse Oximetry 99 98 Oxygen Delivery Method Room Air BMI result Body Mass Index 23.0 Labs 06/30/25 07:49 06/30/25 07:49 Labs: Laboratory Results - last 48 hr 08/02/25 07:51 Absolute Neuts (auto) 5.4 Medications Medications Current Medications Acetaminophen (Acetaminophen 325 Mg Tablet) 650 mg PO Q6H PRN PRN Reason: Headache/Pain, Scale 1-10 Last Admin: 07/25/25 10:00 Dose: 650 mg Al Hydroxide/Mg Hydroxide (Magnesium Hydrox/Alum Hydrox 30 Ml Oral.Susp) 30 ml PO Q6H PRN PRN Reason: Heartburn/Nausea Ascorbic Acid (Ascorbic Acid 250 Mg Tablet) 250 mg PO DAILY RATNA Last Admin: 08/02/25 09:33 Dose: 250 mg Bupropion HCl (Bupropion Hcl Xl 150 Mg Tab.Er.24h) 150 mg PO DAILY RATNA Last Admin: 08/02/25 09:33 Dose: 150 mg Buspirone HCl (Buspirone Hcl 5 Mg Tablet) 15 mg PO BID [facility] Last Admin: 08/02/25 09:33 Dose: 15 mg Cariprazine (Cariprazine Hcl 3 Mg Capsule) 3 mg PO DAILY [facility] Last Admin: 08/02/25 09:33 Dose: 3 mg Clonidine HCl (Clonidine Hcl 0.1 Mg Tablet) 0.1 mg PO Q4H PRN; Protocol PRN Reason: moderate anxiety Last Admin: 08/01/25 09:04 Dose: 0.1 mg Cyclobenzaprine HCl (Cyclobenzaprine Hcl 10 Mg Tablet) 10 mg PO TID PRN PRN Reason: Muscle Spasm Last Admin: 08/02/25 09:36 Dose: 10 mg Fluticasone Propionate (Fluticasone Propionate Nasal 16 Gm [place]) 1 spray NOSTRIL-B BID PRN PRN Reason: sinus congestion Last Admin: 07/27/25 15:38 Dose: 1 spray Hydroxyzine HCl (Hydroxyzine Hcl 25 Mg Tablet) 25 mg PO Q6H PRN PRN Reason: mild anxiety Last Admin: 07/31/25 11:14 Dose: 25 mg Ibuprofen (Ibuprofen 600 Mg Tablet) 600 mg PO Q6H PRN PRN Reason: Pain, Severe (Pain Scale 7-10) Last Admin: 08/01/25 00:04 Dose: 600 mg Lamotrigine (Lamotrigine 100 Mg Tablet) 200 mg PO BEDTIME [facility] Last Admin: 08/01/25 22:14 Dose: 200 mg Levothyroxine Sodium (Levothyroxine Sodium 75 Mcg Tablet) 75 mcg PO DAILY@0600 [facility] Last Admin: 08/02/25 05:38 Dose: 75 mcg Lidocaine HCl (Lidocaine 4 % Cream Kit) 1 appl TOPICAL ONCE PRN; Protocol PRN Reason: lower back pain Last Admin: 07/29/25 09:08 Dose: 1 appl Lorazepam (Lorazepam 0.5 Mg Tablet) 0.5 mg PO DAILY PRN PRN Reason: severe anxiety Last Admin: 08/01/25 15:22 Dose: 0.5 mg Magnesium Hydroxide (Milk Of Magnesia 30 Ml Oral.Susp) 30 ml PO DAILY PRN PRN Reason: Constipation Multivitamins/Vitamin C (Multivitamin Tablet) 1 tab PO DAILY [facility] Last Admin: 08/02/25 09:33 Dose: 1 tab Nicotine Polacrilex (Nicotine Polacrilex 2 Mg Gum) 4 mg BUCCAL Q2H PRN PRN Reason: Nicotine Cravings Prazosin HCl (Prazosin Hcl 1 Mg Capsule) 2 mg PO BEDTIME RATNA; Protocol Last Admin: 08/01/25 22:15 Dose: 2 mg Quetiapine Fumarate (Quetiapine Fumarate 25 Mg Tablet) 75 mg PO BEDTIME RATNA Last Admin: 08/01/25 22:14 Dose: 75 mg Trazodone HCl (Trazodone Hcl 50 Mg Tablet) 50 mg PO BEDTIME MRX1 PRN PRN Reason: Insomnia Allergies Allergies Allergy/AdvReac Type Severity Reaction Status Date / Time No Known Allergies Allergy Verified 06/24/25 17:49 Assessment & Plan Assessment & Plan (1) Schizoaffective disorder, bipolar type: Status: Acute Code(s): F25.0 - Schizoaffective disorder, bipolar type (2) Depression: Status: Acute Code(s): F32.A - Depression, unspecified (3) PTSD (post-traumatic stress disorder): Status: Acute Code(s): F43.10 - Post-traumatic stress disorder, unspecified Plan HPI: Pt is a 40 year old female who presented to the ED after being dropped off by a friend . Upon arrival to the ED she appeared increasingly paranoid and indicated that she was fearful she was being drugged by her and voiced concern for her and her children's safety. Pt stated that she wanted to have her medications checked as things are just off, my daily routine is off . Pt provided inconsistent information as evidence by conflicting information from what she disclosed to the ED provider upon arrival and at times appears to be a poor historian as a result of her current presentation. She remained guarded at this time and at times appeared to be minimizing symptoms as well as medication seeking as she remained primarily focused on her controlled substances that she is currently prescribed. It is to be noted. Formulation/clinical reasoning: Increasing psychotic behaviors, paranoid, disorganized thought process. Family members have safety concern regarding patient mental status at this current time. Even the above information, patient will be benefit in restrictive environment, medication management, and refer patient back to outpatient psychiatric services. Hospital course: 06/25/25: Continue with home medications. In my impression, patient may think that she just come here to get refill of her medication and will be sent home. However, other time she also stating that she has not come here for medication change as if she needs a refilled she can get it feel from her OP provider. Ativan 1 mg q.4 hours p.r.n. for severe anxiety. Home dose was only 0.5 b.i.d. p.r.n.. Stimulants: Continue with stimulants, we will monitor if it causing more psychotic behavior. Questioned if patient overused her Adderall information regarding recent weight lost, and be psychotic. 06/26/2025: Continue to encourage medication adherence and engagement. 06/27: accepting medications and requested prazosin 2mg be restarted 06/28 Patient is a limited historian due to disorganized speech and behavior. Throughout interview patient looking off in the distance, sometimes very latent responses, appearing to be internally preoccupied; frequently not finishing sentences, giving cryptic, vague and frequently unrelated responses to discussion questions. Gas Operator introduces himself has a doctor... Patient then asks are you a Dr.? I am not a doctor. I am Daphne... On inquiry about why patient came to the hospital, she replies, with speech latency and in broken sentences I came... I wanted medications reviewed... And wanted a toxicology... The unknown.... Things got a little unhinged... The court room... Domestic stuff. Patient goes on I was looking for my medications at my house... Interviews, talking, trying to survive all the time... The reality of things is unclear to me... Of the events. Gas Operator asks for clarification to which patient says, again after significant latency, the court house... I just want my [place] back... (she later clarifies that the [place] is a multi tool knife). Patient then started to refer to another patient, saying he wants a tape measure... I have one... I can hang out... There is time and things will be revealed... Whenever thing comes together... Family and judges and worldly stuff.. Gas Operator asks about her earlier concern that her is poisoning her... Patient remained silent for awhile and then says I checked my meds... When I went to talk to them... I would like to see the toxicology... My back was sweating.. I was questioning reality generally... There was a 911 call... She then told publications writer she questioned the reality of this conversation but could not clarify further but then some something about getting her red ticket.. Regarding how she got to the hospital, patient said officers came to my house and talked to my kids...my daughter called them...since i was not feeling safe.....i know my very well...it just wasnt a good think going on...i wasn't...no...it got real.....im in survival mode...it started getting scary and dangerous...my was getting a little...red flaggs...it started to be an unsafe situation..he [] was not himself... Patient also said that her best friend Stephanie Holder dropped her off at the hospital; not clear how she got here. Patient gave publications writer permission to talk to Stephanie and also to collect information from her . denies drugs or taking her prescribed medications in excess denies hx manic episodes; yes AH but nothing to be alarmed about... Nurse Note by Karon Arora RN 06/25/25 09:54 - This RN spoke to [facility] regarding the situation that led to being present here in the ER. Per [facility] employee, yesterday there was an argument between the patient and her where both her and her received a crisis consult. Per [facility] employee, patient was originally seen by [facility] crisis and it was determined she could go to respite, however, shortly after, crisis was called back to the home and the patient was sent here to the hospital. When the [facility] employee interviewed the pts 14 year old son, he reports that his mom has been acting really paranoid about things as of recently. (daughter 14yo, Son 11yo) 06/29 Patient remains with psychotic symptoms and said she thinks maybe he[] wants to kill or hurt me... Gas Operator inquired and patient kept coming back to the fact that he put her home medications in the wrong pill box compartments... and this is what made her think he is trying to kill her... Patient however was willing to entertain that perhaps this might not be true. However, she is significantly more organized today than she was yesterday, talking in full sentences sticking to the topic at hand. She agrees that yesterday she was feeling much more confused she is thinking more clearly today. Patient's father present who has been meeting with her daily since this admission and who agrees that she is significantly better and headed back towards her regular self. Patient agreed to sign a CV and also agreed to have Vyvanse and bupropion discontinued for now; she also agreed to take risperidone which publications writer explained was hopefully just for few days. IMPRESSION: Patient demonstrating psychotic symptoms, auditory hallucinations, paranoid delusions and disorganized speech and behavior; patient is certainly internally preoccupied. So far collateral reports that patient has no history of psychosis or bipolar disorder. After gathering collateral from patient's and father, both deny any history of psychosis or sukhdeep were similar such episodes. Both speculate patient may have abused prescription medications including Vyvanse (and reports may have used crack cocaine) accounting for triggering this episode. Frequently substance induced psychosis resolves within 1-2 days (though can also persist for 2 or more weeks); however patient has remained on both Vyvanse and Wellbutrin which could prolonged symptoms (as both can increase dopamine). Will hold both Vyvanse and Wellbutrin. Also started risperidone low-dose to help with dopamine blockade. 06/30 Patient remains with paranoid ideation; refused Risperdal. On inquiry patient said she does not think she needs it but publications writer continue to educate patient on medication and she said she would start taking it. Patient with some increase disorganized behaviors today, seen self-dialoguing and responding to internal stimuli at 1 point standing aimlessly in hallway, not moving. Slept only 4 hours -hopefully patient will start taking risperidone 07/01 patient remains with intermittent odd and disorganized behaviors, talking to herself in the wetzel; remains with paranoid ideations however is able to be more logical in conversation and for longer periods of time. Patient's sister visiting who gave history that patient started to a peer to be manic about 5 months ago which correlates to increased Vyvanse dose (hyperactive, rapid speech, little sleep-which patient concurred); patient's sister volunteered that she has schizoaffective disorder and has been on medication which was a surprise to patient but with this news was willing to take Risperdal 07/02 patient doing much better. Patient is more organized in both speech and behavior. Patient did take Risperdal twice yesterday but found it made her tired and did not want it anymore. However she agrees it may have been helpful. Patient for the 1st time able to talk much more logically and accurately about history and shares with publications writer that she has been diagnosed with bipolar disorder in the past and was at 1 point on Seroquel around 400 mg and then stabilized on Lamictal 200 mg. Patient said that she had been doing well for so long that her current psychiatric provider agreed to start peeling away her medications and Seroquel was lowered to 100 mg Lamictal tapered down to 50 mg. This taper coincided with patient being started on stimulant medication for ADHD and her Vyvanse was titrated. Patient agrees that it is very possible that the tapering off of Lamictal (she may have been on only Lamictal and not Seroquel for quite awhile) the titration of a stimulant medication is what triggered manic episode which worsened over the past few weeks and included significant paranoid ideations. Patient agrees to get back on Lamictal which caused no side effects. -remains with paranoid ideations about her but they are less intense and patient more open to reality testing; of note patient's does have schizophrenia 07/05 patient continues to be improved, overall organized in speech and behavior able to discuss diagnosis and treatment appropriately 07/06Patient more disorganized doing bizarre, odd hand movements during interview. Patient mimicking/mirroring the hand gestures of whomever is talking; some echolalia as well. Patient remains very vague when discussing her thoughts. Continues to have some paranoid ideations about her however patient's sister does agree that patient's is excessively controlling and for the past 2 years, the sister has noticed that he dictates how long and with whom patient can spend time. Patient struggles to have insight into her behaviors including when they are pointed out in real-time. However she does agree to start perphenazine\ -had discussed risks/side effects of antipsychotics 07/07 Patient denies any medications side effects. Continues to have disorganized in behaviors and now hiding in the corners of the hallway throughout the milieu; continues to mirror movements of others with intermittent echolalia. Remains very vague on what he is thinking and keeps saying she is just waiting for it to all come together. 07/08 Patient Increasingly disorganized; standing in the corner for hours, peering around it into the milieu, not talking. Patient guarded on approach. Initially refused perphenazine but was willing to discuss it with publications writer and patient said she does not feel like herself and hoped that the medication would help repair that. Patient agreed to increasing perphenazine to 4 mg t.i.d. -regarding diagnosis, patient has past diagnosis of bipolar disorder which reportedly was treated with Lamictal and before that Seroquel. Patient is not particularly manic but is definitely with psychotic symptoms. Will provisionally change diagnosis to schizoaffective disorder 07/09 little better today with increased dose of perphenazine which patient has been taking. She denies medication side effects and agrees that medications are helpful Still odd but less so and seems to be more organized. Still with limited insight but reports she is feeling better and more like herself though can not specifically articulate why. Patient said she had a good talk with her daughter which was helpful; also talked with the telling him she wants to separate which she said was a long time coming -seems that perphenazine is helping; will continue 07/10 Patient agitated on the unit today and yelling in the hallway. Gas Operator discussed this with patient who expresses concern about her being with her children. pt says she gave him bad news about their marriage and is worried about his mental state. She says he has had hallucinated/paranoid delusions about their son, a few years ago. Today, she can not say what he did or said that worried her...other than vague references to his composure...reactions...like he's not in touch with reality... But with no specifics...She agrees perhaps he could just be anxious... She also says she believes he has been unmedicated for a long time She then told her publications writer that Juan Miguel [son] talks in code to me, like I asked 'what are you wearing to school today...' and he said 'my pink Allan shirt tomorrow...' but he does not have a pink allan shirt, which means he's talking to me in code... She said this exchange happened the week prior to this admission and that he is talking in code her so his father will not know. Patient then showed publications writer a picture her son made which her brought in for her during this visit; she insisted him doing so was manipulative though publications writer could not understand why; patient showed publications writer a letter her wrote to her which was generally about how he is hoping for her and he wished to get help her. Patient says she thinks it is weird though publications writer could not understand why. After this encounter with her , she l called PD for wellness check on son; check was completed and PD informed her that her son is OK. She signed a 3 day notice 07/11 Patient refuse perphenazine, last night and this morning. Patient barely slept and staff reports she was pacing the wetzel throughout the night. On inquiry patient said that the afternoon dose was making her feel tired; regarding the bedtime dose, she said she just does not want to take this medication and wants to try something different in the same category. Gas Operator offered haloperidol with which she agreed. Impression: Patient remains with paranoid ideations and no insight into her own illness. She has some hypomanic behaviors; most of her problematic symptoms have been psychosis so have been focusing on antipsychotic however patient may benefit from traditional mood stabilizer; will continue to titrate Lamictal however this may not be adequate. Will hold Lexapro. -if patient willing will also consider increasing Seroquel at bedtime though concern is it would cause daytime sedation and she would refuse it. 07/12 little more organized, angry at her ; does not want Haldol, saying it makes her too sedated and agreed to Clozaril after reviewing risks/side effects -patient says she will retract her 3 day and stay a little longer 07/13 more odd behaviors today, wandering, sometimes hiding in hallway; other times social with peers. Pt witnessed self-dialouging in bedroom. Agrees to titration of clozapine. Agrees to remain on the unit longer for treatment -when patient takes perphenazine or Haldol, odd behaviors seemed to clear up; currently those have been discontinued and she is on low-dose of clozapine which is being titrated 07/14: Patient reports moderate anxiety. Denies depression. Denies paranoia. Denies SI/HI/AVH. Continue current treatment regimen. 07/15/25: Patient is not active engage in 1-1 assessment, walking the wetzel, asking this provider credential she is not legal . can you open the door? . Report to nurse that she find it helpful to distract her self by using headphone. Told nurse that she tries to have a good day. Appear sad, irritable, preoccupied and appear to be psychotic with mood swing, restless. Per nursing, patient slept for 5 hours, compliant with meds. Continue with current plan. 07/16/25: I am upset every morning and am upset now, but I don't want to talk about it. Team reports pt is upset about needing to be on the unit this weekend. Family meeting on 07/19. Pt allowed brief meeting with tw- discussed Clozapine increase by primary provider in preparation for discharge, she agrees and concurs. Team reports pt slept for ~6.5 hours. Described as anxious, guarded and labile Episodic yelling on the unit, after a telephone call with partner. Sat on the floor in the middle of the milieu, asking her primary RN to pick her up. Was able to get off the floor on her own and meet with publications writer briefly, however, declined to discuss what was bothering her. Denies SI,HI,AH,VH- I am just pissed, you know? No new medical/diagnostic results. Back pain relieved with Ibuprofen Plan: Clozapine to increase to 100 mg tonight per primary provider. 07/17/25: Meet with patient in exam room. Report that anxiety is very high this morning. Says that she does not want to take PRN but she took it and report feeling better. Report trying to use coping skills such as listening to music, doing some art work and talk to staff and try not to explode . Patient is visible, less irritable and more cooperative, not question regarding this provider's capacity and title. Denies SI/SIB/HI/AVH. Can be labile. No medication changes. Per nursing, slept for 6 hours, compliant with meds. Denies side effects. Continue with current treatment plan. 07/18/25: Patient slept for 6 hours, frustrated being here. Increased anxiety this morning and not happy with her . Patient is the wetzel appear to be suspicious at the end of the wetzel, restless. She denies safety concerns, overwhelmed with coming family meeting, restless. Patient was on the phone with her , got very angry and upset, she started being loud talking about her . Able to redirect to talk to this provider in Group room C. Report that her told her she is not allowed to go home if you talk to me that way . Patient reports that her is not reasonable, not wanting to do family counseling regarding their marriage. She called him to just to talk to him in advance to prepare for tomorrow family meeting but at the end getting triggered by Scott . Patient was tearful, sad and irritable talking about her Patient accepted Ativan 1mg x1 to calm her down with good effects. 07/19 Patient remains with psychotic symptoms and remains guarded. Bizarre movements in the milieu. Today however was the 1st time she shared that she does have auditory hallucinations and will here words that at the moment she thinks are in reference to her, but she will around and see no one talking... she has not quite open to reality testing. Patient continues to have paranoid ideations. She remains quite guarded and mostly says I am just waiting for to all come together when asked further about psychotic symptoms. Patient agrees to increasing clozapine. She reports that she is starting to feel quite depressed which she thinks his partly situational, missing her kids but also just a deeper regular depression and she mentions that she has been off her Wellbutrin and Vyvanse and Lexapro. Gas Operator discussed the reasons for this and the concern that restarting these too soon could exacerbate symptoms which she accepts and again agrees to increase clozapine; also agrees to continued Lamictal increase 07/20 Patient now back to mirroring various staff; continues with bizarre movements in hallway. Patient opened up a bit more about her thoughts. Regarding mirroring, she at 1st said it was a joke but then she acknowledged that it is not a joke... She shared that she thinks perhaps this admission is all a set up and that this is not a real hospital unit, that this publications writer is not a real doctor and that the staff are all involved in this set up.. She could not explain why such as set up would be occurring and somehow her mirroring Staff is a part of this life. Gas Operator attempted reality testing and patient was not opposed to it but says she is not sure if she believes that this publications writer is a real doctor or that this is a real hospital wings; regarding the unit, she says it looks different, it set a part... It is not new... It is not a part of the hospital. Patient agreed to consider that this police might just be her mind playing tricks on her and publications writer reassured her that all of this is in fact real and that she is being treated for in illness. She continues to report AH but remains vague about it. 07/21 remains with paranoid ideations, AH; will continue titrating clozapine 07/24 Impression: Patient remains psychotic with auditory hallucinations and paranoid ideations. While her behaviors themselves (internal preoccupation and self dialoguing; disorganized behaviors) and comments reveal the psychotic process, Up until now she has remained very guarded about sharing them. Patient has little insight, though she remains willing to remain on the unit continue with medication. Patient told publications writer she has has a diagnosis of bipolar disorder and was manic/hypomanic for a few months prior to worsening psychotic symptoms (lowering of mood stabilizer and increasing of Vyvanse seemed to be the trigger); she used to be on Seroquel (400-600mg) but found it too sedating and cause significant weight gain and does not want to increase dose (using it for sleep only). While Patient did have some manic behaviors earlier in admission, it seems that the psychotic symptoms are independent of both sukhdeep and depression as they have been ongoing in between mood episodes and so will continue with diagnosis of schizoaffective disorder, bipolar type (but leave it as provisional dx). Patients severe trauma history is certainly contributory to her anxiety and paranoia. Regarding patient's lack of insight, yesterday she called her 11-year-old son and told him the only reason she is in the hospital was because of his father which significantly upset the son. Currently Patient remains too paranoid about her to adequately discuss her own symptoms and why she ended up hospitalized (though she has some sense that she was getting dysregulated). Patient remains fragile and she remain vulnerable to worsening psychosis or return of manic symptoms; she requires continued medication titration. She has significant paranoid ideations about her and has already lost full access to her children via DCF, and can now only see them when supervised; if she were to discharge now, her ongoing symptoms place her at high risk for further DCF intervention. Given her lack of insight, paranoid ideations towards her and paranoid belief that this admission is a set up Patient is at high risk for unsafe behaviors in the community and requires continued inpatient stay for treatment. Regarding medication management, will continue to titrate clozapine since she is tolerating it and it is helpful for both psychosis and bipolar disorder (including bipolar depression). Would like to restart Wellbutrin for depression however will try to get AH under better control 1st; will hold off on Lexapro until mood stabilizing medications are at therapeutic doses so as not to trigger manic episode. 07/22 Patient remains with paranoid ideations and told publications writer today that she is fully convinced that she is here on the unit as the focal point of a conspiracy with staff and pretend patients all in on it playing a game at her expense. She said she is feeling tired of playing the game and she just not going to right now. Gas Operator asked for an example and she said that there was water on the floor which she had to walk around and not get emotionally dysregulated; she explained that the water was purposely but there to test her. Gas Operator continued to provide education to the contrary that she is being psychiatrically treated on a true psychiatric unit. It is difficult to tell if patient has some insight in that she needs treatment and medication or if she is accepting treatment/medication as part of playing the game... At any rate she agrees to increase Clozaril. She said she is feeling tired in the morning and so publications writer agreed to try and see if she could tolerate restarting Wellbutrin. -patient expressing depressed feelings and feeling tired in the morning which make sense as she is off both Wellbutrin and Vyvanse; will restart Wellbutrin to help with daytime tiredness and depression at the risk of exacerbating psychotic symptoms. Starting at a low-dose is minimal risk and publications writer considers it worth restarting this medication to avoid patient becoming disinterested in clozapine -retracted 3 day notice 07/23 No change in presentation; patient remains self dialouging. Patient continues to believe the people on the unit are actors part of a set up scheme, pretending to be a psychiatric unit. Patient pointed out different staff that she is unable to tell if they are part of the scheme or not -continue clozapine titration -today started Wellbutrin XL 150 mg since patient complaining of depression and tiredness; hoping that this does not exacerbate psychotic symptoms 07/24/25:Reviewed with team, plan of care reviewed, pt allowed a brief interaction stating she was doing OK and denied current issues or concerns. She is visable in milieu, talkative with select peers, spending a lot of time looking out of the wetzel windows. Team reports she feels we are playing games with her. Approached about this issue-she denied 07/25/25: Team reports pt refused Clozapine last night. Discussed with pt. You know, I woke up feeling like me today. When I take it I feel incoherent, too sedated . Discussed that refusals may increase her in pt time. We agreed to a decrease from 225 to 200 this evening. 07/26 Patient remains fully convinced that this publications writer is not a real doctor, the unit does not a real psychiatric unit and that the patients and staff are part of [employer], designed to somehow play a game with her of which she is the main character. Patient is clear on this with publications writer. Gas Operator again attempted reality testing clearly discussing her illness and treatment for; she does not necessarily disagree but it is difficult to know her level of insight into her own illness. Gas Operator discussed the the significant concern were she to discharge now and patient agrees to remain on the unit and continue with treatment -over the weekend, she refused clozapine on Saturday; however she said she will continue taking it 07/27 patient refuses Clozaril without much reasoning; agrees to start Vraylar; remains without any insight and with paranoid delusions 07/29 pt reports she's getting used to it here... and volunteers that she believes publications writer is a real doctor and that this is a real hospital. She says no med side-effects. Denies AVH. -increasing Lamictal to 200mg -not sure if patients sudden realization that this is a real hospital/admission is authentic or pt saying what she thinks publications writer wants to hear 07/30 seems to be little more organized, less guarded and more relaxed. Continue treatment plan 07/31 still internally preoccupied but more open, less guarded. Shared about struggles with relationship with . -will continue with Vraylar 3mg for now before increasing dose 08/01 Patient overall more calm today. She asked publications writer some questions about treatment and agreed with medication plan, saying she was feeling overall better. Patient discussed how she has to think this publications writer was not a real doctor but has come to realize that this publications writer, patient's, the unit are all real and that she was admitted for psychotic symptoms. She thinks perhaps her delusional ideas were largely fueled by her trauma history as well as knowing that her had once been psychiatrically admitted on this same unit. Patient asked for Seroquel to be lowered to 75 mg with which publications writer agreed -although still very early on, publications writer is cautiously hopeful 08/02 Patient reports feeling overall better. Sad missing her daughter's birthday. Confirms she realizes this admission is real and not an experiment. Acknowledges that she was confused prior to coming to the hospital. Feels that Vraylar is helpful and wants to continue feeling that with it she might not need to be back on Lexapro Plan cv q15 Continue Vraylar 3 mg Continue Wellbutrin XL 150 mg daily (normally on 300 mg) Lowered to Seroquel 75 at bedtime for sleep (perhaps can eventually get off this and just use clozapine). Continue Lamictal to 200 mg: Continue BuSpar 15 mg twice a day. Continue Clonidine prn HOLD Lexapro 10 mg daily since hypomanic behaviors HOLD Vyvanse DC perphenazine; patient did not want it, saying it made her sedated DC risperidone; patient does not like and patient is improved DC Haldol; said made too sedating DC clozapine 300 mg q.h.s.; patient refuses Patient educated on: diagnosis, medication risk/benefits and therapeutic strategies Informed Consent: understands, does not understand and further education needed Reason for continued inpatient stay Substantial Risk for: stable for discharge Time Spent With Patient Time: Total time managing care of this patient today ____ minutes.
[2025-08-02 19:46] VITALS: BP 119/73; PULSE 90; TEMP 36.7; O2SAT 100
[2025-08-02 22:16] VITALS: BP 119/73
[2025-08-03 08:00] VITALS: BP 117/65; PULSE 83; RESP 18; TEMP 36.5; O2SAT 100
[2025-08-03] MEDS: buPROPion HCl XL 150 MG TAB.ER.24H PO (08:45)
--- NOTE | 2025-08-03 19:38 | HO.PSYCHPN ---
Subjective Subjective Date of Service: 08/03/25 Reason For Visit: Recurrent major depression with psychosis Interim History: Met with patient; discussed with team Patient more odd today and not answering questions directly, distracted with some internal preoccupation; she said she is feeling that she is being treated with kid gloves by a spiritual person Patient says this has been going on since June. She said it was going on yesterday to but she was just overall more calm and so it was not as intense. It does not bother her and her seems overall benevolent. She acknowledged that intermittently she wonders still if patients are actors were real but mostly able to tell that they are real. Denies actual AH. Patient accepted that she had a break from reality which resulted in his hospitalization Mental Status Exam Mental Status Exam Narrative: Pt is alert and oriented; behavior is a little more odd today, distracted and internally preoccupied, laughing a lot; some mirroring of staff; remains cooperative, friendly and calm on approach and social with peers; patient is not in distress; dressed in casual attire with adequate grooming and hygiene; mood is described as good and affect congruent, more calm; eye contact appropriate; Speech is normal rate, volume and prosody and not pressured; today no psychomotor agitation/retardation present; thought process is more organized; Thought content is on tx, her diagnosis; no delusional thinking expressed and responding to reality testing; denies any SI/HI. Denies AVH and though still intermittently internally preoccupied, much less so Patients insight and judgment overall improved Diagnostics Vital Signs (24Hr): Vital Signs - 24 hr 08/02/25 19:46 08/02/25 22:16 08/03/25 08:00 Temperature 98.0 F 97.7 F Pulse Rate 90 83 Respiratory Rate 18 Blood Pressure 119/73 119/73 117/65 Pulse Oximetry 100 100 Oxygen Delivery Method Room Air Room Air BMI result Body Mass Index 23.0 Labs 06/30/25 07:49 06/30/25 07:49 Labs: Laboratory Results - last 48 hr 08/02/25 07:51 Absolute Neuts (auto) 5.4 Medications Medications Current Medications Acetaminophen (Acetaminophen 325 Mg Tablet) 650 mg PO Q6H PRN PRN Reason: Headache/Pain, Scale 1-10 Last Admin: 08/03/25 18:21 Dose: 650 mg Al Hydroxide/Mg Hydroxide (Magnesium Hydrox/Alum Hydrox 30 Ml Oral.Susp) 30 ml PO Q6H PRN PRN Reason: Heartburn/Nausea Ascorbic Acid (Ascorbic Acid 250 Mg Tablet) 250 mg PO DAILY [facility] Last Admin: 08/03/25 08:45 Dose: 250 mg Bupropion HCl (Bupropion Hcl Xl 150 Mg Tab.Er.24h) 150 mg PO DAILY [facility] Last Admin: 08/03/25 08:45 Dose: 150 mg Buspirone HCl (Buspirone Hcl 5 Mg Tablet) 15 mg PO BID [facility] Last Admin: 08/03/25 08:45 Dose: 15 mg Cariprazine (Cariprazine Hcl 1.5 Mg Capsule) 4.5 mg PO DAILY [facility] Cariprazine (Cariprazine Hcl 1.5 Mg Capsule) 1.5 mg PO ONCE ONE Stop: 08/03/25 19:35 Clonidine HCl (Clonidine Hcl 0.1 Mg Tablet) 0.1 mg PO Q4H PRN; Protocol PRN Reason: moderate anxiety Last Admin: 08/01/25 09:04 Dose: 0.1 mg Cyclobenzaprine HCl (Cyclobenzaprine Hcl 10 Mg Tablet) 10 mg PO TID PRN PRN Reason: Muscle Spasm Last Admin: 08/02/25 09:36 Dose: 10 mg Fluticasone Propionate (Fluticasone Propionate Nasal 16 Gm [place]) 1 spray NOSTRIL-B BID PRN PRN Reason: sinus congestion Last Admin: 07/27/25 15:38 Dose: 1 spray Hydroxyzine HCl (Hydroxyzine Hcl 25 Mg Tablet) 25 mg PO Q6H PRN PRN Reason: mild anxiety Last Admin: 07/31/25 11:14 Dose: 25 mg Ibuprofen (Ibuprofen 600 Mg Tablet) 600 mg PO Q6H PRN PRN Reason: Pain, Severe (Pain Scale 7-10) Last Admin: 08/01/25 00:04 Dose: 600 mg Lamotrigine (Lamotrigine 100 Mg Tablet) 200 mg PO BEDTIME [facility] Last Admin: 08/02/25 22:16 Dose: 200 mg Levothyroxine Sodium (Levothyroxine Sodium 75 Mcg Tablet) 75 mcg PO DAILY@0600 [facility] Last Admin: 08/03/25 05:57 Dose: 75 mcg Lidocaine HCl (Lidocaine 4 % Cream Kit) 1 appl TOPICAL ONCE PRN; Protocol PRN Reason: lower back pain Last Admin: 07/29/25 09:08 Dose: 1 appl Lorazepam (Lorazepam 0.5 Mg Tablet) 0.5 mg PO DAILY PRN PRN Reason: severe anxiety Last Admin: 08/03/25 16:54 Dose: 0.5 mg Magnesium Hydroxide (Milk Of Magnesia 30 Ml Oral.Susp) 30 ml PO DAILY PRN PRN Reason: Constipation Multivitamins/Vitamin C (Multivitamin Tablet) 1 tab PO DAILY [facility] Last Admin: 08/03/25 08:45 Dose: 1 tab Nicotine Polacrilex (Nicotine Polacrilex 2 Mg Gum) 4 mg BUCCAL Q2H PRN PRN Reason: Nicotine Cravings Prazosin HCl (Prazosin Hcl 1 Mg Capsule) 2 mg PO BEDTIME [facility]; Protocol Last Admin: 08/02/25 22:16 Dose: 2 mg Quetiapine Fumarate (Quetiapine Fumarate 25 Mg Tablet) 75 mg PO BEDTIME [facility] Last Admin: 08/02/25 22:17 Dose: 75 mg Trazodone HCl (Trazodone Hcl 50 Mg Tablet) 50 mg PO BEDTIME MRX1 PRN PRN Reason: Insomnia Allergies Allergies Allergy/AdvReac Type Severity Reaction Status Date / Time No Known Allergies Allergy Verified 06/24/25 17:49 Assessment & Plan Assessment & Plan (1) Schizoaffective disorder, bipolar type: Status: Acute Code(s): F25.0 - Schizoaffective disorder, bipolar type (2) Depression: Status: Acute Code(s): F32.A - Depression, unspecified (3) PTSD (post-traumatic stress disorder): Status: Acute Code(s): F43.10 - Post-traumatic stress disorder, unspecified Plan HPI: Pt is a 40 year old female who presented to the ED after being dropped off by a friend . Upon arrival to the ED she appeared increasingly paranoid and indicated that she was fearful she was being drugged by her and voiced concern for her and her children's safety. Pt stated that she wanted to have her medications checked as things are just off, my daily routine is off . Pt provided inconsistent information as evidence by conflicting information from what she disclosed to the ED provider upon arrival and at times appears to be a poor historian as a result of her current presentation. She remained guarded at this time and at times appeared to be minimizing symptoms as well as medication seeking as she remained primarily focused on her controlled substances that she is currently prescribed. It is to be noted. Formulation/clinical reasoning: Increasing psychotic behaviors, paranoid, disorganized thought process. Family members have safety concern regarding patient mental status at this current time. Even the above information, patient will be benefit in restrictive environment, medication management, and refer patient back to outpatient psychiatric services. Hospital course: 06/25/25: Continue with home medications. In my impression, patient may think that she just come here to get refill of her medication and will be sent home. However, other time she also stating that she has not come here for medication change as if she needs a refilled she can get it feel from her OP provider. Ativan 1 mg q.4 hours p.r.n. for severe anxiety. Home dose was only 0.5 b.i.d. p.r.n.. Stimulants: Continue with stimulants, we will monitor if it causing more psychotic behavior. Questioned if patient overused her Adderall information regarding recent weight lost, and be psychotic. 06/26/2025: Continue to encourage medication adherence and engagement. 06/27: accepting medications and requested prazosin 2mg be restarted 06/28 Patient is a limited historian due to disorganized speech and behavior. Throughout interview patient looking off in the distance, sometimes very latent responses, appearing to be internally preoccupied; frequently not finishing sentences, giving cryptic, vague and frequently unrelated responses to discussion questions. Housecleaner introduces himself has a doctor... Patient then asks are you a Dr.? I am not a doctor. I am Daphne... On inquiry about why patient came to the hospital, she replies, with speech latency and in broken sentences I came... I wanted medications reviewed... And wanted a toxicology... The unknown.... Things got a little unhinged... The court room... Domestic stuff. Patient goes on I was looking for my medications at my house... Interviews, talking, trying to survive all the time... The reality of things is unclear to me... Of the events. Housecleaner asks for clarification to which patient says, again after significant latency, the court house... I just want my Garrett back... (she later clarifies that the [place] is a multi tool knife). Patient then started to refer to another patient, saying he wants a tape measure... I have one... I can hang out... There is time and things will be revealed... Whenever thing comes together... Family and judges and worldly stuff.. Housecleaner asks about her earlier concern that her is poisoning her... Patient remained silent for awhile and then says I checked my meds... When I went to talk to them... I would like to see the toxicology... My back was sweating.. I was questioning reality generally... There was a 911 call... She then told fiction and nonfiction prose writer she questioned the reality of this conversation but could not clarify further but then some something about getting her red ticket.. Regarding how she got to the hospital, patient said officers came to my house and talked to my kids...my daughter called them...since i was not feeling safe.....i know my very well...it just wasnt a good think going on...i wasn't...no...it got real.....im in survival mode...it started getting scary and dangerous...my was getting a little...red flaggs...it started to be an unsafe situation..he [] was not himself... Patient also said that her best friend Stephanie Holder dropped her off at the hospital; not clear how she got here. Patient gave fiction and nonfiction prose writer permission to talk to Stephanie and also to collect information from her . denies drugs or taking her prescribed medications in excess denies hx manic episodes; yes AH but nothing to be alarmed about... Nurse Note by Karon Arora RN 06/25/25 09:54 - This RN spoke to [facility] regarding the situation that led to being present here in the ER. Per [facility] employee, yesterday there was an argument between the patient and her where both her and her received a crisis consult. Per [facility] employee, patient was originally seen by [facility] crisis and it was determined she could go to respite, however, shortly after, crisis was called back to the home and the patient was sent here to the hospital. When the [facility] employee interviewed the pts 14 year old son, he reports that his mom has been acting really paranoid about things as of recently. (daughter 14yo, Son 11yo) 06/29 Patient remains with psychotic symptoms and said she thinks maybe he[] wants to kill or hurt me... Housecleaner inquired and patient kept coming back to the fact that he put her home medications in the wrong pill box compartments... and this is what made her think he is trying to kill her... Patient however was willing to entertain that perhaps this might not be true. However, she is significantly more organized today than she was yesterday, talking in full sentences sticking to the topic at hand. She agrees that yesterday she was feeling much more confused she is thinking more clearly today. Patient's father present who has been meeting with her daily since this admission and who agrees that she is significantly better and headed back towards her regular self. Patient agreed to sign a CV and also agreed to have Vyvanse and bupropion discontinued for now; she also agreed to take risperidone which fiction and nonfiction prose writer explained was hopefully just for few days. IMPRESSION: Patient demonstrating psychotic symptoms, auditory hallucinations, paranoid delusions and disorganized speech and behavior; patient is certainly internally preoccupied. So far collateral reports that patient has no history of psychosis or bipolar disorder. After gathering collateral from patient's and father, both deny any history of psychosis or sukhdeep were similar such episodes. Both speculate patient may have abused prescription medications including Vyvanse (and reports may have used crack cocaine) accounting for triggering this episode. Frequently substance induced psychosis resolves within 1-2 days (though can also persist for 2 or more weeks); however patient has remained on both Vyvanse and Wellbutrin which could prolonged symptoms (as both can increase dopamine). Will hold both Vyvanse and Wellbutrin. Also started risperidone low-dose to help with dopamine blockade. 06/30 Patient remains with paranoid ideation; refused Risperdal. On inquiry patient said she does not think she needs it but fiction and nonfiction prose writer continue to educate patient on medication and she said she would start taking it. Patient with some increase disorganized behaviors today, seen self-dialoguing and responding to internal stimuli at 1 point standing aimlessly in hallway, not moving. Slept only 4 hours -hopefully patient will start taking risperidone 07/01 patient remains with intermittent odd and disorganized behaviors, talking to herself in the wetzel; remains with paranoid ideations however is able to be more logical in conversation and for longer periods of time. Patient's sister visiting who gave history that patient started to a peer to be manic about 5 months ago which correlates to increased Vyvanse dose (hyperactive, rapid speech, little sleep-which patient concurred); patient's sister volunteered that she has schizoaffective disorder and has been on medication which was a surprise to patient but with this news was willing to take Risperdal 07/02 patient doing much better. Patient is more organized in both speech and behavior. Patient did take Risperdal twice yesterday but found it made her tired and did not want it anymore. However she agrees it may have been helpful. Patient for the 1st time able to talk much more logically and accurately about history and shares with fiction and nonfiction prose writer that she has been diagnosed with bipolar disorder in the past and was at 1 point on Seroquel around 400 mg and then stabilized on Lamictal 200 mg. Patient said that she had been doing well for so long that her current psychiatric provider agreed to start peeling away her medications and Seroquel was lowered to 100 mg Lamictal tapered down to 50 mg. This taper coincided with patient being started on stimulant medication for ADHD and her Vyvanse was titrated. Patient agrees that it is very possible that the tapering off of Lamictal (she may have been on only Lamictal and not Seroquel for quite awhile) the titration of a stimulant medication is what triggered manic episode which worsened over the past few weeks and included significant paranoid ideations. Patient agrees to get back on Lamictal which caused no side effects. -remains with paranoid ideations about her but they are less intense and patient more open to reality testing; of note patient's does have schizophrenia 07/05 patient continues to be improved, overall organized in speech and behavior able to discuss diagnosis and treatment appropriately 07/06Patient more disorganized doing bizarre, odd hand movements during interview. Patient mimicking/mirroring the hand gestures of whomever is talking; some echolalia as well. Patient remains very vague when discussing her thoughts. Continues to have some paranoid ideations about her however patient's sister does agree that patient's is excessively controlling and for the past 2 years, the sister has noticed that he dictates how long and with whom patient can spend time. Patient struggles to have insight into her behaviors including when they are pointed out in real-time. However she does agree to start perphenazine\ -had discussed risks/side effects of antipsychotics 07/07 Patient denies any medications side effects. Continues to have disorganized in behaviors and now hiding in the corners of the hallway throughout the milieu; continues to mirror movements of others with intermittent echolalia. Remains very vague on what he is thinking and keeps saying she is just waiting for it to all come together. 07/08 Patient Increasingly disorganized; standing in the corner for hours, peering around it into the milieu, not talking. Patient guarded on approach. Initially refused perphenazine but was willing to discuss it with fiction and nonfiction prose writer and patient said she does not feel like herself and hoped that the medication would help repair that. Patient agreed to increasing perphenazine to 4 mg t.i.d. -regarding diagnosis, patient has past diagnosis of bipolar disorder which reportedly was treated with Lamictal and before that Seroquel. Patient is not particularly manic but is definitely with psychotic symptoms. Will provisionally change diagnosis to schizoaffective disorder 07/09 little better today with increased dose of perphenazine which patient has been taking. She denies medication side effects and agrees that medications are helpful Still odd but less so and seems to be more organized. Still with limited insight but reports she is feeling better and more like herself though can not specifically articulate why. Patient said she had a good talk with her daughter which was helpful; also talked with the telling him she wants to separate which she said was a long time coming -seems that perphenazine is helping; will continue 07/10 Patient agitated on the unit today and yelling in the hallway. Housecleaner discussed this with patient who expresses concern about her being with her children. pt says she gave him bad news about their marriage and is worried about his mental state. She says he has had hallucinated/paranoid delusions about their son, a few years ago. Today, she can not say what he did or said that worried her...other than vague references to his composure...reactions...like he's not in touch with reality... But with no specifics...She agrees perhaps he could just be anxious... She also says she believes he has been unmedicated for a long time She then told her fiction and nonfiction prose writer that Juan Miguel [son] talks in code to me, like I asked 'what are you wearing to school today...' and he said 'my pink Allan shirt tomorrow...' but he does not have a pink allan shirt, which means he's talking to me in code... She said this exchange happened the week prior to this admission and that he is talking in code her so his father will not know. Patient then showed fiction and nonfiction prose writer a picture her son made which her brought in for her during this visit; she insisted him doing so was manipulative though fiction and nonfiction prose writer could not understand why; patient showed fiction and nonfiction prose writer a letter her wrote to her which was generally about how he is hoping for her and he wished to get help her. Patient says she thinks it is weird though fiction and nonfiction prose writer could not understand why. After this encounter with her , she l called PD for wellness check on son; check was completed and PD informed her that her son is OK. She signed a 3 day notice 07/11 Patient refuse perphenazine, last night and this morning. Patient barely slept and staff reports she was pacing the wetzel throughout the night. On inquiry patient said that the afternoon dose was making her feel tired; regarding the bedtime dose, she said she just does not want to take this medication and wants to try something different in the same category. Housecleaner offered haloperidol with which she agreed. Impression: Patient remains with paranoid ideations and no insight into her own illness. She has some hypomanic behaviors; most of her problematic symptoms have been psychosis so have been focusing on antipsychotic however patient may benefit from traditional mood stabilizer; will continue to titrate Lamictal however this may not be adequate. Will hold Lexapro. -if patient willing will also consider increasing Seroquel at bedtime though concern is it would cause daytime sedation and she would refuse it. 07/12 little more organized, angry at her ; does not want Haldol, saying it makes her too sedated and agreed to Clozaril after reviewing risks/side effects -patient says she will retract her 3 day and stay a little longer 07/13 more odd behaviors today, wandering, sometimes hiding in hallway; other times social with peers. Pt witnessed self-dialouging in bedroom. Agrees to titration of clozapine. Agrees to remain on the unit longer for treatment -when patient takes perphenazine or Haldol, odd behaviors seemed to clear up; currently those have been discontinued and she is on low-dose of clozapine which is being titrated 07/14: Patient reports moderate anxiety. Denies depression. Denies paranoia. Denies SI/HI/AVH. Continue current treatment regimen. 07/15/25: Patient is not active engage in 1-1 assessment, walking the wetzel, asking this provider credential she is not legal . can you open the door? . Report to nurse that she find it helpful to distract her self by using headphone. Told nurse that she tries to have a good day. Appear sad, irritable, preoccupied and appear to be psychotic with mood swing, restless. Per nursing, patient slept for 5 hours, compliant with meds. Continue with current plan. 07/16/25: I am upset every morning and am upset now, but I don't want to talk about it. Team reports pt is upset about needing to be on the unit this weekend. Family meeting on 07/19. Pt allowed brief meeting with tw- discussed Clozapine increase by primary provider in preparation for discharge, she agrees and concurs. Team reports pt slept for ~6.5 hours. Described as anxious, guarded and labile Episodic yelling on the unit, after a telephone call with partner. Sat on the floor in the middle of the milieu, asking her primary RN to pick her up. Was able to get off the floor on her own and meet with fiction and nonfiction prose writer briefly, however, declined to discuss what was bothering her. Denies SI,HI,AH,VH- I am just pissed, you know? No new medical/diagnostic results. Back pain relieved with Ibuprofen Plan: Clozapine to increase to 100 mg tonight per primary provider. 07/17/25: Meet with patient in exam room. Report that anxiety is very high this morning. Says that she does not want to take PRN but she took it and report feeling better. Report trying to use coping skills such as listening to music, doing some art work and talk to staff and try not to explode . Patient is visible, less irritable and more cooperative, not question regarding this provider's capacity and title. Denies SI/SIB/HI/AVH. Can be labile. No medication changes. Per nursing, slept for 6 hours, compliant with meds. Denies side effects. Continue with current treatment plan. 07/18/25: Patient slept for 6 hours, frustrated being here. Increased anxiety this morning and not happy with her . Patient is the wetzel appear to be suspicious at the end of the wetzel, restless. She denies safety concerns, overwhelmed with coming family meeting, restless. Patient was on the phone with her , got very angry and upset, she started being loud talking about her . Able to redirect to talk to this provider in Group room C. Report that her told her she is not allowed to go home if you talk to me that way . Patient reports that her is not reasonable, not wanting to do family counseling regarding their marriage. She called him to just to talk to him in advance to prepare for tomorrow family meeting but at the end getting triggered by Scott . Patient was tearful, sad and irritable talking about her Patient accepted Ativan 1mg x1 to calm her down with good effects. 07/19 Patient remains with psychotic symptoms and remains guarded. Bizarre movements in the milieu. Today however was the 1st time she shared that she does have auditory hallucinations and will here words that at the moment she thinks are in reference to her, but she will around and see no one talking... she has not quite open to reality testing. Patient continues to have paranoid ideations. She remains quite guarded and mostly says I am just waiting for to all come together when asked further about psychotic symptoms. Patient agrees to increasing clozapine. She reports that she is starting to feel quite depressed which she thinks his partly situational, missing her kids but also just a deeper regular depression and she mentions that she has been off her Wellbutrin and Vyvanse and Lexapro. Housecleaner discussed the reasons for this and the concern that restarting these too soon could exacerbate symptoms which she accepts and again agrees to increase clozapine; also agrees to continued Lamictal increase 12/2 Patient now back to mirroring various staff; continues with bizarre movements in hallway. Patient opened up a bit more about her thoughts. Regarding mirroring, she at 1st said it was a joke but then she acknowledged that it is not a joke... She shared that she thinks perhaps this admission is all a set up and that this is not a real hospital unit, that this fiction and nonfiction prose writer is not a real doctor and that the staff are all involved in this set up.. She could not explain why such as set up would be occurring and somehow her mirroring Staff is a part of this life. Housecleaner attempted reality testing and patient was not opposed to it but says she is not sure if she believes that this fiction and nonfiction prose writer is a real doctor or that this is a real hospital wings; regarding the unit, she says it looks different, it set a part... It is not new... It is not a part of the hospital. Patient agreed to consider that this police might just be her mind playing tricks on her and fiction and nonfiction prose writer reassured her that all of this is in fact real and that she is being treated for in illness. She continues to report AH but remains vague about it. 07/21 remains with paranoid ideations, AH; will continue titrating clozapine 07/24 Impression: Patient remains psychotic with auditory hallucinations and paranoid ideations. While her behaviors themselves (internal preoccupation and self dialoguing; disorganized behaviors) and comments reveal the psychotic process, Up until now she has remained very guarded about sharing them. Patient has little insight, though she remains willing to remain on the unit continue with medication. Patient told fiction and nonfiction prose writer she has has a diagnosis of bipolar disorder and was manic/hypomanic for a few months prior to worsening psychotic symptoms (lowering of mood stabilizer and increasing of Vyvanse seemed to be the trigger); she used to be on Seroquel (400-600mg) but found it too sedating and cause significant weight gain and does not want to increase dose (using it for sleep only). While Patient did have some manic behaviors earlier in admission, it seems that the psychotic symptoms are independent of both sukhdeep and depression as they have been ongoing in between mood episodes and so will continue with diagnosis of schizoaffective disorder, bipolar type (but leave it as provisional dx). Patients severe trauma history is certainly contributory to her anxiety and paranoia. Regarding patient's lack of insight, yesterday she called her 11-year-old son and told him the only reason she is in the hospital was because of his father which significantly upset the son. Currently Patient remains too paranoid about her to adequately discuss her own symptoms and why she ended up hospitalized (though she has some sense that she was getting dysregulated). Patient remains fragile and she remain vulnerable to worsening psychosis or return of manic symptoms; she requires continued medication titration. She has significant paranoid ideations about her and has already lost full access to her children via DCF, and can now only see them when supervised; if she were to discharge now, her ongoing symptoms place her at high risk for further DCF intervention. Given her lack of insight, paranoid ideations towards her and paranoid belief that this admission is a set up Patient is at high risk for unsafe behaviors in the community and requires continued inpatient stay for treatment. Regarding medication management, will continue to titrate clozapine since she is tolerating it and it is helpful for both psychosis and bipolar disorder (including bipolar depression). Would like to restart Wellbutrin for depression however will try to get AH under better control 1st; will hold off on Lexapro until mood stabilizing medications are at therapeutic doses so as not to trigger manic episode. 07/22 Patient remains with paranoid ideations and told fiction and nonfiction prose writer today that she is fully convinced that she is here on the unit as the focal point of a conspiracy with staff and pretend patients all in on it playing a game at her expense. She said she is feeling tired of playing the game and she just not going to right now. Housecleaner asked for an example and she said that there was water on the floor which she had to walk around and not get emotionally dysregulated; she explained that the water was purposely but there to test her. Housecleaner continued to provide education to the contrary that she is being psychiatrically treated on a true psychiatric unit. It is difficult to tell if patient has some insight in that she needs treatment and medication or if she is accepting treatment/medication as part of playing the game... At any rate she agrees to increase Clozaril. She said she is feeling tired in the morning and so fiction and nonfiction prose writer agreed to try and see if she could tolerate restarting Wellbutrin. -patient expressing depressed feelings and feeling tired in the morning which make sense as she is off both Wellbutrin and Vyvanse; will restart Wellbutrin to help with daytime tiredness and depression at the risk of exacerbating psychotic symptoms. Starting at a low-dose is minimal risk and fiction and nonfiction prose writer considers it worth restarting this medication to avoid patient becoming disinterested in clozapine -retracted 3 day notice 07/23 No change in presentation; patient remains self dialouging. Patient continues to believe the people on the unit are actors part of a set up scheme, pretending to be a psychiatric unit. Patient pointed out different staff that she is unable to tell if they are part of the scheme or not -continue clozapine titration -today started Wellbutrin XL 150 mg since patient complaining of depression and tiredness; hoping that this does not exacerbate psychotic symptoms 07/24/25:Reviewed with team, plan of care reviewed, pt allowed a brief interaction stating she was doing OK and denied current issues or concerns. She is visable in milieu, talkative with select peers, spending a lot of time looking out of the wetzel windows. Team reports she feels we are playing games with her. Approached about this issue-she denied 07/25/25: Team reports pt refused Clozapine last night. Discussed with pt. You know, I woke up feeling like me today. When I take it I feel incoherent, too sedated . Discussed that refusals may increase her in pt time. We agreed to a decrease from 225 to 200 this evening. 07/26 Patient remains fully convinced that this fiction and nonfiction prose writer is not a real doctor, the unit does not a real psychiatric unit and that the patients and staff are part of enact, designed to somehow play a game with her of which she is the main character. Patient is clear on this with fiction and nonfiction prose writer. Housecleaner again attempted reality testing clearly discussing her illness and treatment for; she does not necessarily disagree but it is difficult to know her level of insight into her own illness. Housecleaner discussed the the significant concern were she to discharge now and patient agrees to remain on the unit and continue with treatment -over the weekend, she refused clozapine on Saturday; however she said she will continue taking it 07/27 patient refuses Clozaril without much reasoning; agrees to start Vraylar; remains without any insight and with paranoid delusions 07/29 pt reports she's getting used to it here... and volunteers that she believes fiction and nonfiction prose writer is a real doctor and that this is a real hospital. She says no med side-effects. Denies AVH. -increasing Lamictal to 200mg -not sure if patients sudden realization that this is a real hospital/admission is authentic or pt saying what she thinks fiction and nonfiction prose writer wants to hear 07/30 seems to be little more organized, less guarded and more relaxed. Continue treatment plan 07/31 still internally preoccupied but more open, less guarded. Shared about struggles with relationship with . -will continue with Vraylar 3mg for now before increasing dose 08/01 Patient overall more calm today. She asked fiction and nonfiction prose writer some questions about treatment and agreed with medication plan, saying she was feeling overall better. Patient discussed how she has to think this fiction and nonfiction prose writer was not a real doctor but has come to realize that this fiction and nonfiction prose writer, patient's, the unit are all real and that she was admitted for psychotic symptoms. She thinks perhaps her delusional ideas were largely fueled by her trauma history as well as knowing that her had once been psychiatrically admitted on this same unit. Patient asked for Seroquel to be lowered to 75 mg with which fiction and nonfiction prose writer agreed -although still very early on, fiction and nonfiction prose writer is cautiously hopeful 08/02 Patient reports feeling overall better. Sad missing her daughter's birthday. Confirms she realizes this admission is real and not an experiment. Acknowledges that she was confused prior to coming to the hospital. Feels that Vraylar is helpful and wants to continue feeling that with it she might not need to be back on Lexapro 08/03 little more odd, internally preoccupied; but acknowledging she struggles with discerning what is real and what is delusional. Agrees to increase in Vraylar -patient is overall improved. Still has some delusional ideas but is better able to challenge them with reality testing. Plan cv q15 Increased to Vraylar 4.5 mg Continue Wellbutrin XL 150 mg daily (normally on 300 mg) Lowered to Seroquel 75 at bedtime for sleep (perhaps can eventually get off this and just use clozapine). Continue Lamictal to 200 mg: Continue BuSpar 15 mg twice a day. Continue Clonidine prn HOLD Lexapro 10 mg daily since hypomanic behaviors HOLD Joelleyvsonge DC perphenazine; patient did not want it, saying it made her sedated DC risperidone; patient does not like and patient is improved DC Haldol; said made too sedating DC clozapine 300 mg q.h.s.; patient refuses Patient educated on: diagnosis, medication risk/benefits and therapeutic strategies Informed Consent: understands, does not understand and further education needed Reason for continued inpatient stay Substantial Risk for: stable for discharge Time Spent With Patient Time: Total time managing care of this patient today ____ minutes.
[2025-08-03 19:49] VITALS: BP 117/88; PULSE 101; TEMP 37; O2SAT 100
[2025-08-04 08:00] VITALS: BP 117/88; PULSE 83; RESP 16; TEMP 37; O2SAT 97
[2025-08-04] MEDS: buPROPion HCl XL 150 MG TAB.ER.24H PO (09:05)
--- NOTE | 2025-08-04 09:38 | P.PNPSI_ITS ---
Subjective Subjective Date of Service: 08/04/25 Reason For Visit: Recurrent major depression with psychosis Interim History: Met with patient; discussed with team Patient feeling sad about D[facility] stipulation that patient has to see her kids for the next 2 weeks with supervised visits. Patient feels is unfair. Handling the news appropriately. In good behavioral and impulse control and still looking forward to discharge tomorrow Mental Status Exam Mental Status Exam Narrative: Pt is alert and oriented; behavior is improved behavioral and impulse control; today no obvious odd behaviors and patient remains cooperative, friendly and calm on approach and social with peers; patient is not in distress; dressed in casual attire with adequate grooming and hygiene; mood is described as upset and affect congruent, constricted; eye contact appropriate; Speech is normal rate, volume and prosody and not pressured; today no psychomotor agitation/retardation present; thought process is more organized; Thought content is on tx, her diagnosis; no delusional thinking expressed and responding to reality testing; denies any SI/HI. Denies AVH and if internally preoccupied, much less so Patients insight and judgment improved and adequate Diagnostics Vital Signs (24Hr): Vital Signs - 24 hr 08/03/25 19:49 Temperature 98.6 F Pulse Rate 101 H Blood Pressure 117/88 Pulse Oximetry 100 Oxygen Delivery Method Room Air BMI result Body Mass Index 23.0 Labs 06/30/25 07:49 06/30/25 07:49 Medications Medications Current Medications Acetaminophen (Acetaminophen 325 Mg Tablet) 650 mg PO Q6H PRN PRN Reason: Headache/Pain, Scale 1-10 Last Admin: 08/03/25 18:21 Dose: 650 mg Al Hydroxide/Mg Hydroxide (Magnesium Hydrox/Alum Hydrox 30 Ml Oral.Susp) 30 ml PO Q6H PRN PRN Reason: Heartburn/Nausea Ascorbic Acid (Ascorbic Acid 250 Mg Tablet) 250 mg PO DAILY [facility] Last Admin: 08/04/25 09:05 Dose: 250 mg Bupropion HCl (Bupropion Hcl Xl 150 Mg Tab.Er.24h) 150 mg PO DAILY [facility] Last Admin: 08/04/25 09:05 Dose: 150 mg Buspirone HCl (Buspirone Hcl 5 Mg Tablet) 15 mg PO BID [facility] Last Admin: 08/04/25 09:04 Dose: 15 mg Cariprazine (Cariprazine Hcl 1.5 Mg Capsule) 4.5 mg PO DAILY [facility] Last Admin: 08/04/25 09:05 Dose: 4.5 mg Clonidine HCl (Clonidine Hcl 0.1 Mg Tablet) 0.1 mg PO Q4H PRN; Protocol PRN Reason: moderate anxiety Last Admin: 08/01/25 09:04 Dose: 0.1 mg Cyclobenzaprine HCl (Cyclobenzaprine Hcl 10 Mg Tablet) 10 mg PO TID PRN PRN Reason: Muscle Spasm Last Admin: 08/02/25 09:36 Dose: 10 mg Fluticasone Propionate (Fluticasone Propionate Nasal 16 Gm [place]) 1 spray NOSTRIL-B BID PRN PRN Reason: sinus congestion Last Admin: 07/27/25 15:38 Dose: 1 spray Hydroxyzine HCl (Hydroxyzine Hcl 25 Mg Tablet) 25 mg PO Q6H PRN PRN Reason: mild anxiety Last Admin: 07/31/25 11:14 Dose: 25 mg Ibuprofen (Ibuprofen 600 Mg Tablet) 600 mg PO Q6H PRN PRN Reason: Pain, Severe (Pain Scale 7-10) Last Admin: 08/01/25 00:04 Dose: 600 mg Lamotrigine (Lamotrigine 100 Mg Tablet) 200 mg PO BEDTIME [facility] Last Admin: 08/03/25 21:46 Dose: 200 mg Levothyroxine Sodium (Levothyroxine Sodium 75 Mcg Tablet) 75 mcg PO DAILY@0600 [facility] Last Admin: 08/04/25 06:30 Dose: 75 mcg Lidocaine HCl (Lidocaine 4 % Cream Kit) 1 appl TOPICAL ONCE PRN; Protocol PRN Reason: lower back pain Last Admin: 07/29/25 09:08 Dose: 1 appl Lorazepam (Lorazepam 0.5 Mg Tablet) 0.5 mg PO DAILY PRN PRN Reason: severe anxiety Last Admin: 08/04/25 03:09 Dose: 0.5 mg Magnesium Hydroxide (Milk Of Magnesia 30 Ml Oral.Susp) 30 ml PO DAILY PRN PRN Reason: Constipation Multivitamins/Vitamin C (Multivitamin Tablet) 1 tab PO DAILY [facility] Last Admin: 08/04/25 09:05 Dose: 1 tab Nicotine Polacrilex (Nicotine Polacrilex 2 Mg Gum) 4 mg BUCCAL Q2H PRN PRN Reason: Nicotine Cravings Prazosin HCl (Prazosin Hcl 1 Mg Capsule) 2 mg PO BEDTIME RATNA; Protocol Last Admin: 08/03/25 21:46 Dose: 2 mg Quetiapine Fumarate (Quetiapine Fumarate 25 Mg Tablet) 75 mg PO BEDTIME RATNA Last Admin: 08/03/25 21:46 Dose: 75 mg Trazodone HCl (Trazodone Hcl 50 Mg Tablet) 50 mg PO BEDTIME [id number] PRN PRN Reason: Insomnia Allergies Allergies Allergy/AdvReac Type Severity Reaction Status Date / Time No Known Allergies Allergy Verified 06/24/25 17:49 Assessment & Plan Assessment & Plan (1) Schizoaffective disorder, bipolar type: Status: Acute Code(s): F25.0 - Schizoaffective disorder, bipolar type (2) Depression: Status: Acute Code(s): F32.A - Depression, unspecified (3) PTSD (post-traumatic stress disorder): Status: Acute Code(s): F43.10 - Post-traumatic stress disorder, unspecified Plan HPI: Pt is a 40 year old female who presented to the ED after being dropped off by a friend . Upon arrival to the ED she appeared increasingly paranoid and indicated that she was fearful she was being drugged by her and voiced concern for her and her children's safety. Pt stated that she wanted to have her medications checked as things are just off, my daily routine is off . Pt provided inconsistent information as evidence by conflicting information from what she disclosed to the ED provider upon arrival and at times appears to be a poor historian as a result of her current presentation. She remained guarded at this time and at times appeared to be minimizing symptoms as well as medication seeking as she remained primarily focused on her controlled substances that she is currently prescribed. It is to be noted. Formulation/clinical reasoning: Increasing psychotic behaviors, paranoid, disorganized thought process. Family members have safety concern regarding patient mental status at this current time. Even the above information, patient will be benefit in restrictive environment, medication management, and refer patient back to outpatient psychiatric services. Hospital course: 06/25/25: Continue with home medications. In my impression, patient may think that she just come here to get refill of her medication and will be sent home. However, other time she also stating that she has not come here for medication change as if she needs a refilled she can get it feel from her OP provider. Ativan 1 mg q.4 hours p.r.n. for severe anxiety. Home dose was only 0.5 b.i.d. p.r.n.. Stimulants: Continue with stimulants, we will monitor if it causing more psychotic behavior. Questioned if patient overused her Adderall information regarding recent weight lost, and be psychotic. 06/26/2025: Continue to encourage medication adherence and engagement. 06/27: accepting medications and requested prazosin 2mg be restarted 06/28 Patient is a limited historian due to disorganized speech and behavior. Throughout interview patient looking off in the distance, sometimes very latent responses, appearing to be internally preoccupied; frequently not finishing sentences, giving cryptic, vague and frequently unrelated responses to discussion questions. Appliance Tester introduces himself has a doctor... Patient then asks are you a Dr.? I am not a doctor. I am Daphne... On inquiry about why patient came to the hospital, she replies, with speech latency and in broken sentences I came... I wanted medications reviewed... And wanted a toxicology... The unknown.... Things got a little unhinged... The court room... Domestic stuff. Patient goes on I was looking for my medications at my house... Interviews, talking, trying to survive all the time... The reality of things is unclear to me... Of the events. Appliance Tester asks for clarification to which patient says, again after significant latency, the court house... I just want my Garrett back... (she later clarifies that the Barton is a multi tool knife). Patient then started to refer to another patient, saying he wants a tape measure... I have one... I can hang out... There is time and things will be revealed... Whenever thing comes together... Family and judges and worldly stuff.. Appliance Tester asks about her earlier concern that her is poisoning her... Patient remained silent for awhile and then says I checked my meds... When I went to talk to them... I would like to see the toxicology... My back was sweating.. I was questioning reality generally... There was a 911 call... She then told director underwriter sales she questioned the reality of this conversation but could not clarify further but then some something about getting her red ticket.. Regarding how she got to the hospital, patient said officers came to my house and talked to my kids...my daughter called them...since i was not feeling safe.....i know my very well...it just wasnt a good think going on...i wasn't...no...it got real.....im in survival mode...it started getting scary and dangerous...my was getting a little...red flaggs...it started to be an unsafe situation..he [] was not himself... Patient also said that her best friend Stephanie Holder dropped her off at the hospital; not clear how she got here. Patient gave director underwriter sales permission to talk to Stephanie and also to collect information from her . denies drugs or taking her prescribed medications in excess denies hx manic episodes; yes AH but nothing to be alarmed about... Nurse Note by Karon Arora RN 06/25/25 09:54 - This RN spoke to [facility] regarding the situation that led to being present here in the ER. Per [facility] employee, yesterday there was an argument between the patient and her where both her and her received a crisis consult. Per [facility] employee, patient was originally seen by [facility] crisis and it was determined she could go to respite, however, shortly after, crisis was called back to the home and the patient was sent here to the hospital. When the [facility] employee interviewed the pts 14 year old son, he reports that his mom has been acting really paranoid about things as of recently. (daughter 14yo, Son 11yo) 06/29 Patient remains with psychotic symptoms and said she thinks maybe he[] wants to kill or hurt me... Appliance Tester inquired and patient kept coming back to the fact that he put her home medications in the wrong pill box compartments... and this is what made her think he is trying to kill her... Patient however was willing to entertain that perhaps this might not be true. However, she is significantly more organized today than she was yesterday, talking in full sentences sticking to the topic at hand. She agrees that yesterday she was feeling much more confused she is thinking more clearly today. Patient's father present who has been meeting with her daily since this admission and who agrees that she is significantly better and headed back towards her regular self. Patient agreed to sign a CV and also agreed to have Vyvanse and bupropion discontinued for now; she also agreed to take risperidone which director underwriter sales explained was hopefully just for few days. IMPRESSION: Patient demonstrating psychotic symptoms, auditory hallucinations, paranoid delusions and disorganized speech and behavior; patient is certainly internally preoccupied. So far collateral reports that patient has no history of psychosis or bipolar disorder. After gathering collateral from patient's and father, both deny any history of psychosis or sukhdeep were similar such episodes. Both speculate patient may have abused prescription medications including Vyvanse (and reports may have used crack cocaine) accounting for triggering this episode. Frequently substance induced psychosis resolves within 1-2 days (though can also persist for 2 or more weeks); however patient has remained on both Vyvanse and Wellbutrin which could prolonged symptoms (as both can increase dopamine). Will hold both Vyvanse and Wellbutrin. Also started risperidone low-dose to help with dopamine blockade. 06/30 Patient remains with paranoid ideation; refused Risperdal. On inquiry patient said she does not think she needs it but director underwriter sales continue to educate patient on medication and she said she would start taking it. Patient with some increase disorganized behaviors today, seen self-dialoguing and responding to internal stimuli at 1 point standing aimlessly in hallway, not moving. Slept only 4 hours -hopefully patient will start taking risperidone 07/01 patient remains with intermittent odd and disorganized behaviors, talking to herself in the wetzel; remains with paranoid ideations however is able to be more logical in conversation and for longer periods of time. Patient's sister visiting who gave history that patient started to a peer to be manic about 5 months ago which correlates to increased Vyvanse dose (hyperactive, rapid speech, little sleep-which patient concurred); patient's sister volunteered that she has schizoaffective disorder and has been on medication which was a surprise to patient but with this news was willing to take Risperdal 07/02 patient doing much better. Patient is more organized in both speech and behavior. Patient did take Risperdal twice yesterday but found it made her tired and did not want it anymore. However she agrees it may have been helpful. Patient for the 1st time able to talk much more logically and accurately about history and shares with director underwriter sales that she has been diagnosed with bipolar disorder in the past and was at 1 point on Seroquel around 400 mg and then stabilized on Lamictal 200 mg. Patient said that she had been doing well for so long that her current psychiatric provider agreed to start peeling away her medications and Seroquel was lowered to 100 mg Lamictal tapered down to 50 mg. This taper coincided with patient being started on stimulant medication for ADHD and her Vyvanse was titrated. Patient agrees that it is very possible that the tapering off of Lamictal (she may have been on only Lamictal and not Seroquel for quite awhile) the titration of a stimulant medication is what triggered manic episode which worsened over the past few weeks and included significant paranoid ideations. Patient agrees to get back on Lamictal which caused no side effects. -remains with paranoid ideations about her but they are less intense and patient more open to reality testing; of note patient's does have schizophrenia 07/05 patient continues to be improved, overall organized in speech and behavior able to discuss diagnosis and treatment appropriately 07/06Patient more disorganized doing bizarre, odd hand movements during interview. Patient mimicking/mirroring the hand gestures of whomever is talking; some echolalia as well. Patient remains very vague when discussing her thoughts. Continues to have some paranoid ideations about her however patient's sister does agree that patient's is excessively controlling and for the past 2 years, the sister has noticed that he dictates how long and with whom patient can spend time. Patient struggles to have insight into her behaviors including when they are pointed out in real-time. However she does agree to start perphenazine\ -had discussed risks/side effects of antipsychotics 07/07 Patient denies any medications side effects. Continues to have disorganized in behaviors and now hiding in the corners of the hallway throughout the milieu; continues to mirror movements of others with intermittent echolalia. Remains very vague on what he is thinking and keeps saying she is just waiting for it to all come together. 07/08 Patient Increasingly disorganized; standing in the corner for hours, peering around it into the milieu, not talking. Patient guarded on approach. Initially refused perphenazine but was willing to discuss it with director underwriter sales and patient said she does not feel like herself and hoped that the medication would help repair that. Patient agreed to increasing perphenazine to 4 mg t.i.d. -regarding diagnosis, patient has past diagnosis of bipolar disorder which reportedly was treated with Lamictal and before that Seroquel. Patient is not particularly manic but is definitely with psychotic symptoms. Will provisionally change diagnosis to schizoaffective disorder 07/09 little better today with increased dose of perphenazine which patient has been taking. She denies medication side effects and agrees that medications are helpful Still odd but less so and seems to be more organized. Still with limited insight but reports she is feeling better and more like herself though can not specifically articulate why. Patient said she had a good talk with her daughter which was helpful; also talked with the telling him she wants to separate which she said was a long time coming -seems that perphenazine is helping; will continue 07/10 Patient agitated on the unit today and yelling in the hallway. Appliance Tester discussed this with patient who expresses concern about her being with her children. pt says she gave him bad news about their marriage and is worried about his mental state. She says he has had hallucinated/paranoid delusions about their son, a few years ago. Today, she can not say what he did or said that worried her...other than vague references to his composure...reactions...like he's not in touch with reality... But with no specifics...She agrees perhaps he could just be anxious... She also says she believes he has been unmedicated for a long time She then told her director underwriter sales that Juan Miguel [son] talks in code to me, like I asked 'what are you wearing to school today...' and he said 'my pink Allan shirt tomorrow...' but he does not have a pink allan shirt, which means he's talking to me in code... She said this exchange happened the week prior to this admission and that he is talking in code her so his father will not know. Patient then showed director underwriter sales a picture her son made which her brought in for her during this visit; she insisted him doing so was manipulative though director underwriter sales could not understand why; patient showed director underwriter sales a letter her wrote to her which was generally about how he is hoping for her and he wished to get help her. Patient says she thinks it is weird though director underwriter sales could not understand why. After this encounter with her , she l called PD for wellness check on son; check was completed and PD informed her that her son is OK. She signed a 3 day notice 07/11 Patient refuse perphenazine, last night and this morning. Patient barely slept and staff reports she was pacing the wetzel throughout the night. On inquiry patient said that the afternoon dose was making her feel tired; regarding the bedtime dose, she said she just does not want to take this medication and wants to try something different in the same category. Appliance Tester offered haloperidol with which she agreed. Impression: Patient remains with paranoid ideations and no insight into her own illness. She has some hypomanic behaviors; most of her problematic symptoms have been psychosis so have been focusing on antipsychotic however patient may benefit from traditional mood stabilizer; will continue to titrate Lamictal however this may not be adequate. Will hold Lexapro. -if patient willing will also consider increasing Seroquel at bedtime though concern is it would cause daytime sedation and she would refuse it. 07/12 little more organized, angry at her ; does not want Haldol, saying it makes her too sedated and agreed to Clozaril after reviewing risks/side effects -patient says she will retract her 3 day and stay a little longer 07/13 more odd behaviors today, wandering, sometimes hiding in hallway; other times social with peers. Pt witnessed self-dialouging in bedroom. Agrees to titration of clozapine. Agrees to remain on the unit longer for treatment -when patient takes perphenazine or Haldol, odd behaviors seemed to clear up; currently those have been discontinued and she is on low-dose of clozapine which is being titrated 07/14: Patient reports moderate anxiety. Denies depression. Denies paranoia. Denies SI/HI/AVH. Continue current treatment regimen. 07/15/25: Patient is not active engage in 1-1 assessment, walking the wetzel, asking this provider credential she is not legal . can you open the door? . Report to nurse that she find it helpful to distract her self by using headphone. Told nurse that she tries to have a good day. Appear sad, irritable, preoccupied and appear to be psychotic with mood swing, restless. Per nursing, patient slept for 5 hours, compliant with meds. Continue with current plan. 07/16/25: I am upset every morning and am upset now, but I don't want to talk about it. Team reports pt is upset about needing to be on the unit this weekend. Family meeting on 07/19. Pt allowed brief meeting with tw- discussed Clozapine increase by primary provider in preparation for discharge, she agrees and concurs. Team reports pt slept for ~6.5 hours. Described as anxious, guarded and labile Episodic yelling on the unit, after a telephone call with partner. Sat on the floor in the middle of the milieu, asking her primary RN to pick her up. Was able to get off the floor on her own and meet with director underwriter sales briefly, however, declined to discuss what was bothering her. Denies SI,HI,AH,VH- I am just pissed, you know? No new medical/diagnostic results. Back pain relieved with Ibuprofen Plan: Clozapine to increase to 100 mg tonight per primary provider. 07/17/25: Meet with patient in exam room. Report that anxiety is very high this morning. Says that she does not want to take PRN but she took it and report feeling better. Report trying to use coping skills such as listening to music, doing some art work and talk to staff and try not to explode . Patient is visible, less irritable and more cooperative, not question regarding this provider's capacity and title. Denies SI/SIB/HI/AVH. Can be labile. No medication changes. Per nursing, slept for 6 hours, compliant with meds. Denies side effects. Continue with current treatment plan. 07/18/25: Patient slept for 6 hours, frustrated being here. Increased anxiety this morning and not happy with her . Patient is the wetzel appear to be suspicious at the end of the wetzel, restless. She denies safety concerns, overwhelmed with coming family meeting, restless. Patient was on the phone with her , got very angry and upset, she started being loud talking about her . Able to redirect to talk to this provider in Group room C. Report that her told her she is not allowed to go home if you talk to me that way . Patient reports that her is not reasonable, not wanting to do family counseling regarding their marriage. She called him to just to talk to him in advance to prepare for tomorrow family meeting but at the end getting triggered by Scott . Patient was tearful, sad and irritable talking about her Patient accepted Ativan 1mg x1 to calm her down with good effects. 07/19 Patient remains with psychotic symptoms and remains guarded. Bizarre movements in the milieu. Today however was the 1st time she shared that she does have auditory hallucinations and will here words that at the moment she thinks are in reference to her, but she will around and see no one talking... she has not quite open to reality testing. Patient continues to have paranoid ideations. She remains quite guarded and mostly says I am just waiting for to all come together when asked further about psychotic symptoms. Patient agrees to increasing clozapine. She reports that she is starting to feel quite depressed which she thinks his partly situational, missing her kids but also just a deeper regular depression and she mentions that she has been off her Wellbutrin and Vyvanse and Lexapro. Appliance Tester discussed the reasons for this and the concern that restarting these too soon could exacerbate symptoms which she accepts and again agrees to increase clozapine; also agrees to continued Lamictal increase 07/20 Patient now back to mirroring various staff; continues with bizarre movements in hallway. Patient opened up a bit more about her thoughts. Regarding mirroring, she at 1st said it was a joke but then she acknowledged that it is not a joke... She shared that she thinks perhaps this admission is all a set up and that this is not a real hospital unit, that this director underwriter sales is not a real doctor and that the staff are all involved in this set up.. She could not explain why such as set up would be occurring and somehow her mirroring Staff is a part of this life. Appliance Tester attempted reality testing and patient was not opposed to it but says she is not sure if she believes that this director underwriter sales is a real doctor or that this is a real hospital wings; regarding the unit, she says it looks different, it set a part... It is not new... It is not a part of the hospital. Patient agreed to consider that this police might just be her mind playing tricks on her and director underwriter sales reassured her that all of this is in fact real and that she is being treated for in illness. She continues to report AH but remains vague about it. 07/21 remains with paranoid ideations, AH; will continue titrating clozapine 07/24 Impression: Patient remains psychotic with auditory hallucinations and paranoid ideations. While her behaviors themselves (internal preoccupation and self dialoguing; disorganized behaviors) and comments reveal the psychotic process, Up until now she has remained very guarded about sharing them. Patient has little insight, though she remains willing to remain on the unit continue with medication. Patient told director underwriter sales she has has a diagnosis of bipolar disorder and was manic/hypomanic for a few months prior to worsening psychotic symptoms (lowering of mood stabilizer and increasing of Vyvanse seemed to be the trigger); she used to be on Seroquel (400-600mg) but found it too sedating and cause significant weight gain and does not want to increase dose (using it for sleep only). While Patient did have some manic behaviors earlier in admission, it seems that the psychotic symptoms are independent of both sukhdeep and depression as they have been ongoing in between mood episodes and so will continue with diagnosis of schizoaffective disorder, bipolar type (but leave it as provisional dx). Patients severe trauma history is certainly contributory to her anxiety and paranoia. Regarding patient's lack of insight, yesterday she called her 11-year-old son and told him the only reason she is in the hospital was because of his father which significantly upset the son. Currently Patient remains too paranoid about her to adequately discuss her own symptoms and why she ended up hospitalized (though she has some sense that she was getting dysregulated). Patient remains fragile and she remain vulnerable to worsening psychosis or return of manic symptoms; she requires continued medication titration. She has significant paranoid ideations about her and has already lost full access to her children via DCF, and can now only see them when supervised; if she were to discharge now, her ongoing symptoms place her at high risk for further DCF intervention. Given her lack of insight, paranoid ideations towards her and paranoid belief that this admission is a set up Patient is at high risk for unsafe behaviors in the community and requires continued inpatient stay for treatment. Regarding medication management, will continue to titrate clozapine since she is tolerating it and it is helpful for both psychosis and bipolar disorder (including bipolar depression). Would like to restart Wellbutrin for depression however will try to get AH under better control 1st; will hold off on Lexapro until mood stabilizing medications are at therapeutic doses so as not to trigger manic episode. 07/22 Patient remains with paranoid ideations and told director underwriter sales today that she is fully convinced that she is here on the unit as the focal point of a conspiracy with staff and pretend patients all in on it playing a game at her expense. She said she is feeling tired of playing the game and she just not going to right now. Appliance Tester asked for an example and she said that there was water on the floor which she had to walk around and not get emotionally dysregulated; she explained that the water was purposely but there to test her. Appliance Tester continued to provide education to the contrary that she is being psychiatrically treated on a true psychiatric unit. It is difficult to tell if patient has some insight in that she needs treatment and medication or if she is accepting treatment/medication as part of playing the game... At any rate she agrees to increase Clozaril. She said she is feeling tired in the morning and so director underwriter sales agreed to try and see if she could tolerate restarting Wellbutrin. -patient expressing depressed feelings and feeling tired in the morning which make sense as she is off both Wellbutrin and Vyvanse; will restart Wellbutrin to help with daytime tiredness and depression at the risk of exacerbating psychotic symptoms. Starting at a low-dose is minimal risk and director underwriter sales considers it worth restarting this medication to avoid patient becoming disinterested in clozapine -retracted 3 day notice 07/23 No change in presentation; patient remains self dialouging. Patient continues to believe the people on the unit are actors part of a set up scheme, pretending to be a psychiatric unit. Patient pointed out different staff that she is unable to tell if they are part of the scheme or not -continue clozapine titration -today started Wellbutrin XL 150 mg since patient complaining of depression and tiredness; hoping that this does not exacerbate psychotic symptoms 07/24/25:Reviewed with team, plan of care reviewed, pt allowed a brief interaction stating she was doing OK and denied current issues or concerns. She is visable in milieu, talkative with select peers, spending a lot of time looking out of the wetzel windows. Team reports she feels we are playing games with her. Approached about this issue-she denied 07/25/25: Team reports pt refused Clozapine last night. Discussed with pt. You know, I woke up feeling like me today. When I take it I feel incoherent, too sedated . Discussed that refusals may increase her in pt time. We agreed to a decrease from 225 to 200 this evening. 07/26 Patient remains fully convinced that this director underwriter sales is not a real doctor, the unit does not a real psychiatric unit and that the patients and staff are part of [employer], designed to somehow play a game with her of which she is the main character. Patient is clear on this with director underwriter sales. Appliance Tester again attempted reality testing clearly discussing her illness and treatment for; she does not necessarily disagree but it is difficult to know her level of insight into her own illness. Appliance Tester discussed the the significant concern were she to discharge now and patient agrees to remain on the unit and continue with treatment -over the weekend, she refused clozapine on Saturday; however she said she will continue taking it 07/27 patient refuses Clozaril without much reasoning; agrees to start Vraylar; remains without any insight and with paranoid delusions 07/29 pt reports she's getting used to it here... and volunteers that she believes director underwriter sales is a real doctor and that this is a real hospital. She says no med side-effects. Denies AVH. -increasing Lamictal to 200mg -not sure if patients sudden realization that this is a real hospital/admission is authentic or pt saying what she thinks director underwriter sales wants to hear 07/30 seems to be little more organized, less guarded and more relaxed. Continue treatment plan 07/31 still internally preoccupied but more open, less guarded. Shared about struggles with relationship with . -will continue with Vraylar 3mg for now before increasing dose 08/01 Patient overall more calm today. She asked director underwriter sales some questions about treatment and agreed with medication plan, saying she was feeling overall better. Patient discussed how she has to think this director underwriter sales was not a real doctor but has come to realize that this director underwriter sales, patient's, the unit are all real and that she was admitted for psychotic symptoms. She thinks perhaps her delusional ideas were largely fueled by her trauma history as well as knowing that her had once been psychiatrically admitted on this same unit. Patient asked for Seroquel to be lowered to 75 mg with which director underwriter sales agreed -although still very early on, director underwriter sales is cautiously hopeful 08/02 Patient reports feeling overall better. Sad missing her daughter's birthday. Confirms she realizes this admission is real and not an experiment. Acknowledges that she was confused prior to coming to the hospital. Feels that Vraylar is helpful and wants to continue feeling that with it she might not need to be back on Lexapro 08/03 little more odd, internally preoccupied; but acknowledging she struggles with discerning what is real and what is delusional. Agrees to increase in Vraylar -patient is overall improved. Still has some delusional ideas but is better able to challenge them with reality testing. Patient remains in overall good behavioral and impulse control; despite intermittent odd behaviors, patient is organized. Likely still with some lingering, intermittent delusional ideations but much less intense and patient is aware of them and challenges them with reality testing. Patient is upset with DCF stipulation that she has to have supervised visits with her kids, feeling it is very unfair but patient is coping with this appropriately. Patient very much wants to discharge home. She is not in imminent risk for harm to self or others and appropriate to return to the community for treatment. Plan cv q15 Increased to Vraylar 4.5 mg Continue Wellbutrin XL 150 mg daily (normally on 300 mg) Lowered to Seroquel 75 at bedtime for sleep (perhaps can eventually get off this and just use clozapine). Continue Lamictal to 200 mg: Continue BuSpar 15 mg twice a day. Continue Clonidine prn HOLD Lexapro 10 mg daily since hypomanic behaviors HOLD Vyvanse DC perphenazine; patient did not want it, saying it made her sedated DC risperidone; patient does not like and patient is improved DC Haldol; said made too sedating DC clozapine 300 mg q.h.s.; patient refuses Patient educated on: diagnosis, medication risk/benefits and therapeutic strategies Informed Consent: understands Reason for continued inpatient stay Substantial Risk for: stable for discharge Time Spent With Patient Time: Total time managing care of this patient today ____ minutes.
[2025-08-04 20:08] VITALS: BP 129/86; PULSE 102; RESP 18; TEMP 37; O2SAT 100
[2025-08-05 08:00] VITALS: BP 119/82; PULSE 96; TEMP 37; O2SAT 100
[2025-08-05] MEDS: buPROPion HCl XL 150 MG TAB.ER.24H PO (08:59)
--- NOTE | 2025-08-05 09:20 | P.PNPSI_ITS ---
Subjective Subjective Date of Service: 08/05/25 Reason For Visit: Recurrent major depression with psychosis Interim History: Pt reports she believes she is ready to try life outside of the hospital . Apprehensive and anxious, able to accept support from peers and team. No current questions/issues of concern. Denies SI,HI,AH,VH. Medication Compliance: Yes Side effects from medications: No Attending Groups: Intermittent Review of Systems Acute medical concerns: No Medical Review of Systems: unchanged Review of Systems Review of Systems no Mental Status Exam Mental Status Exam Patient Appearance: Appropriate Patient Orientation: Person, Place, Time and Situation Level of Consciousness: Alert Patient Behavior: Talkative and Good Eye Contact Mood Description: Constricted Affect Description: Constricted Ability to Follow Directions: Good Speech Pattern: Spontaneous Speech Thought Content: positive for Suicidal Ideation (denies) Depressive Symptoms: Thoughts of /Suicide (denies) Judgement: Good Diagnostics Vital Signs (24Hr): Vital Signs - 24 hr 08/04/25 20:08 08/05/25 08:00 Temperature 98.6 F 98.6 F Pulse Rate 102 H 96 Respiratory Rate 18 Blood Pressure 129/86 119/82 Pulse Oximetry 100 100 Oxygen Delivery Method Room Air Room Air BMI result Body Mass Index 23.0 Labs 06/30/25 07:49 06/30/25 07:49 Medications Medications Current Medications Acetaminophen (Acetaminophen 325 Mg Tablet) 650 mg PO Q6H PRN PRN Reason: Headache/Pain, Scale 1-10 Last Admin: 08/03/25 18:21 Dose: 650 mg Al Hydroxide/Mg Hydroxide (Magnesium Hydrox/Alum Hydrox 30 Ml Oral.Susp) 30 ml PO Q6H PRN PRN Reason: Heartburn/Nausea Ascorbic Acid (Ascorbic Acid 250 Mg Tablet) 250 mg PO DAILY [facility] Last Admin: 08/05/25 09:00 Dose: 250 mg Bupropion HCl (Bupropion Hcl Xl 150 Mg Tab.Er.24h) 150 mg PO DAILY [facility] Last Admin: 08/05/25 08:59 Dose: 150 mg Buspirone HCl (Buspirone Hcl 5 Mg Tablet) 15 mg PO BID [facility] Last Admin: 08/05/25 09:00 Dose: 15 mg Cariprazine (Cariprazine Hcl 1.5 Mg Capsule) 4.5 mg PO DAILY [facility] Last Admin: 08/05/25 09:00 Dose: 4.5 mg Clonidine HCl (Clonidine Hcl 0.1 Mg Tablet) 0.1 mg PO Q4H PRN; Protocol PRN Reason: moderate anxiety Last Admin: 08/01/25 09:04 Dose: 0.1 mg Cyclobenzaprine HCl (Cyclobenzaprine Hcl 10 Mg Tablet) 10 mg PO TID PRN PRN Reason: Muscle Spasm Last Admin: 08/04/25 17:49 Dose: 10 mg Fluticasone Propionate (Fluticasone Propionate Nasal 16 Gm [place]) 1 spray NOSTRIL-B BID PRN PRN Reason: sinus congestion Last Admin: 07/27/25 15:38 Dose: 1 spray Hydroxyzine HCl (Hydroxyzine Hcl 25 Mg Tablet) 25 mg PO Q6H PRN PRN Reason: mild anxiety Last Admin: 08/04/25 10:15 Dose: 25 mg Ibuprofen (Ibuprofen 600 Mg Tablet) 600 mg PO Q6H PRN PRN Reason: Pain, Severe (Pain Scale 7-10) Last Admin: 08/01/25 00:04 Dose: 600 mg Lamotrigine (Lamotrigine 100 Mg Tablet) 200 mg PO BEDTIME RATNA Last Admin: 08/04/25 22:43 Dose: 200 mg Levothyroxine Sodium (Levothyroxine Sodium 75 Mcg Tablet) 75 mcg PO DAILY@0600 RATNA Last Admin: 08/05/25 05:52 Dose: 75 mcg Lidocaine HCl (Lidocaine 4 % Cream Kit) 1 appl TOPICAL ONCE PRN; Protocol PRN Reason: lower back pain Last Admin: 07/29/25 09:08 Dose: 1 appl Lorazepam (Lorazepam 0.5 Mg Tablet) 0.5 mg PO DAILY PRN PRN Reason: severe anxiety Last Admin: 08/04/25 03:09 Dose: 0.5 mg Magnesium Hydroxide (Milk Of Magnesia 30 Ml Oral.Susp) 30 ml PO DAILY PRN PRN Reason: Constipation Multivitamins/Vitamin C (Multivitamin Tablet) 1 tab PO DAILY RATNA Last Admin: 08/05/25 09:00 Dose: 1 tab Nicotine Polacrilex (Nicotine Polacrilex 2 Mg Gum) 4 mg BUCCAL Q2H PRN PRN Reason: Nicotine Cravings Prazosin HCl (Prazosin Hcl 1 Mg Capsule) 2 mg PO BEDTIME RATNA; Protocol Last Admin: 08/04/25 22:43 Dose: 2 mg Quetiapine Fumarate (Quetiapine Fumarate 25 Mg Tablet) 75 mg PO BEDTIME RATNA Last Admin: 08/04/25 22:42 Dose: 75 mg Trazodone HCl (Trazodone Hcl 50 Mg Tablet) 50 mg PO BEDTIME MRX1 PRN PRN Reason: Insomnia Allergies Allergies Allergy/AdvReac Type Severity Reaction Status Date / Time No Known Allergies Allergy Verified 06/24/25 17:49 Assessment & Plan Assessment & Plan (1) Schizoaffective disorder, bipolar type: Status: Acute Code(s): F25.0 - Schizoaffective disorder, bipolar type (2) Depression: Status: Acute Code(s): F32.A - Depression, unspecified (3) PTSD (post-traumatic stress disorder): Status: Acute Code(s): F43.10 - Post-traumatic stress disorder, unspecified Plan HPI: Pt is a 40 year old female who presented to the ED after being dropped off by a friend . Upon arrival to the ED she appeared increasingly paranoid and indicated that she was fearful she was being drugged by her and voiced concern for her and her children's safety. Pt stated that she wanted to have her medications checked as things are just off, my daily routine is off . Pt provided inconsistent information as evidence by conflicting information from what she disclosed to the ED provider upon arrival and at times appears to be a poor historian as a result of her current presentation. She remained guarded at this time and at times appeared to be minimizing symptoms as well as medication seeking as she remained primarily focused on her controlled substances that she is currently prescribed. It is to be noted. Formulation/clinical reasoning: Increasing psychotic behaviors, paranoid, disorganized thought process. Family members have safety concern regarding patient mental status at this current time. Even the above information, patient will be benefit in restrictive environment, medication management, and refer patient back to outpatient psychiatric services. Hospital course: 06/25/25: Continue with home medications. In my impression, patient may think that she just come here to get refill of her medication and will be sent home. However, other time she also stating that she has not come here for medication change as if she needs a refilled she can get it feel from her OP provider. Ativan 1 mg q.4 hours p.r.n. for severe anxiety. Home dose was only 0.5 b.i.d. p.r.n.. Stimulants: Continue with stimulants, we will monitor if it causing more psychotic behavior. Questioned if patient overused her Adderall information regarding recent weight lost, and be psychotic. 06/26/2025: Continue to encourage medication adherence and engagement. 06/27: accepting medications and requested prazosin 2mg be restarted 06/28 Patient is a limited historian due to disorganized speech and behavior. Throughout interview patient looking off in the distance, sometimes very latent responses, appearing to be internally preoccupied; frequently not finishing sentences, giving cryptic, vague and frequently unrelated responses to discussion questions. [employer]er introduces himself has a doctor... Patient then asks are you a Dr.? I am not a doctor. I am Daphne... On inquiry about why patient came to the hospital, she replies, with speech latency and in broken sentences I came... I wanted medications reviewed... And wanted a toxicology... The unknown.... Things got a little unhinged... The court room... Domestic stuff. Patient goes on I was looking for my medications at my house... Interviews, talking, trying to survive all the time... The reality of things is unclear to me... Of the events. [employer]er asks for clarification to which patient says, again after significant latency, the court house... I just want my Garrett back... (she later clarifies that the Garrett is a multi tool knife). Patient then started to refer to another patient, saying he wants a tape measure... I have one... I can hang out... There is time and things will be revealed... Whenever thing comes together... Family and judges and worldly stuff.. [employer]er asks about her earlier concern that her is poisoning her... Patient remained silent for awhile and then says I checked my meds... When I went to talk to them... I would like to see the toxicology... My back was sweating.. I was questioning reality generally... There was a 911 call... She then told automobile and property underwriter she questioned the reality of this conversation but could not clarify further but then some something about getting her red ticket.. Regarding how she got to the hospital, patient said officers came to my house and talked to my kids...my daughter called them...since i was not feeling safe.....i know my very well...it just wasnt a good think going on...i wasn't...no...it got real.....im in survival mode...it started getting scary and dangerous...my was getting a little...red flaggs...it started to be an unsafe situation..he [] was not himself... Patient also said that her best friend Stephanie Holder dropped her off at the hospital; not clear how she got here. Patient gave automobile and property underwriter permission to talk to Stephanie and also to collect information from her . denies drugs or taking her prescribed medications in excess denies hx manic episodes; yes AH but nothing to be alarmed about... Nurse Note by Karon Arora RN 06/25/25 09:54 - This RN spoke to [facility] regarding the situation that led to being present here in the ER. Per [facility] employee, yesterday there was an argument between the patient and her where both her and her received a crisis consult. Per [facility] employee, patient was originally seen by [facility] crisis and it was determined she could go to respite, however, shortly after, crisis was called back to the home and the patient was sent here to the hospital. When the [facility] employee interviewed the pts 14 year old son, he reports that his mom has been acting really paranoid about things as of recently. (daughter 14yo, Son 11yo) 06/29 Patient remains with psychotic symptoms and said she thinks maybe he[] wants to kill or hurt me... [employer]er inquired and patient kept coming back to the fact that he put her home medications in the wrong pill box compartments... and this is what made her think he is trying to kill her... Patient however was willing to entertain that perhaps this might not be true. However, she is significantly more organized today than she was yesterday, talking in full sentences sticking to the topic at hand. She agrees that yesterday she was feeling much more confused she is thinking more clearly today. Patient's father present who has been meeting with her daily since this admission and who agrees that she is significantly better and headed back towards her regular self. Patient agreed to sign a CV and also agreed to have Vyvanse and bupropion discontinued for now; she also agreed to take risperidone which automobile and property underwriter explained was hopefully just for few days. IMPRESSION: Patient demonstrating psychotic symptoms, auditory hallucinations, paranoid delusions and disorganized speech and behavior; patient is certainly internally preoccupied. So far collateral reports that patient has no history of psychosis or bipolar disorder. After gathering collateral from patient's and father, both deny any history of psychosis or sukhdeep were similar such episodes. Both speculate patient may have abused prescription medications including Vyvanse (and reports may have used crack cocaine) accounting for triggering this episode. Frequently substance induced psychosis resolves within 1-2 days (though can also persist for 2 or more weeks); however patient has remained on both Vyvanse and Wellbutrin which could prolonged symptoms (as both can increase dopamine). Will hold both Vyvanse and Wellbutrin. Also started risperidone low-dose to help with dopamine blockade. 06/30 Patient remains with paranoid ideation; refused Risperdal. On inquiry patient said she does not think she needs it but automobile and property underwriter continue to educate patient on medication and she said she would start taking it. Patient with some increase disorganized behaviors today, seen self-dialoguing and responding to internal stimuli at 1 point standing aimlessly in hallway, not moving. Slept only 4 hours -hopefully patient will start taking risperidone 07/01 patient remains with intermittent odd and disorganized behaviors, talking to herself in the wetzel; remains with paranoid ideations however is able to be more logical in conversation and for longer periods of time. Patient's sister visiting who gave history that patient started to a peer to be manic about 5 months ago which correlates to increased Vyvanse dose (hyperactive, rapid speech, little sleep-which patient concurred); patient's sister volunteered that she has schizoaffective disorder and has been on medication which was a surprise to patient but with this news was willing to take Risperdal 07/02 patient doing much better. Patient is more organized in both speech and behavior. Patient did take Risperdal twice yesterday but found it made her tired and did not want it anymore. However she agrees it may have been helpful. Patient for the 1st time able to talk much more logically and accurately about history and shares with automobile and property underwriter that she has been diagnosed with bipolar disorder in the past and was at 1 point on Seroquel around 400 mg and then stabilized on Lamictal 200 mg. Patient said that she had been doing well for so long that her current psychiatric provider agreed to start peeling away her medications and Seroquel was lowered to 100 mg Lamictal tapered down to 50 mg. This taper coincided with patient being started on stimulant medication for ADHD and her Vyvanse was titrated. Patient agrees that it is very possible that the tapering off of Lamictal (she may have been on only Lamictal and not Seroquel for quite awhile) the titration of a stimulant medication is what triggered manic episode which worsened over the past few weeks and included significant paranoid ideations. Patient agrees to get back on Lamictal which caused no side effects. -remains with paranoid ideations about her but they are less intense and patient more open to reality testing; of note patient's does have schizophrenia 07/05 patient continues to be improved, overall organized in speech and behavior able to discuss diagnosis and treatment appropriately 07/06Patient more disorganized doing bizarre, odd hand movements during interview. Patient mimicking/mirroring the hand gestures of whomever is talking; some echolalia as well. Patient remains very vague when discussing her thoughts. Continues to have some paranoid ideations about her however patient's sister does agree that patient's is excessively controlling and for the past 2 years, the sister has noticed that he dictates how long and with whom patient can spend time. Patient struggles to have insight into her behaviors including when they are pointed out in real-time. However she does agree to start perphenazine\ -had discussed risks/side effects of antipsychotics 07/07 Patient denies any medications side effects. Continues to have disorganized in behaviors and now hiding in the corners of the hallway throughout the milieu; continues to mirror movements of others with intermittent echolalia. Remains very vague on what he is thinking and keeps saying she is just waiting for it to all come together. 07/08 Patient Increasingly disorganized; standing in the corner for hours, peering around it into the milieu, not talking. Patient guarded on approach. Initially refused perphenazine but was willing to discuss it with automobile and property underwriter and patient said she does not feel like herself and hoped that the medication would help repair that. Patient agreed to increasing perphenazine to 4 mg t.i.d. -regarding diagnosis, patient has past diagnosis of bipolar disorder which reportedly was treated with Lamictal and before that Seroquel. Patient is not particularly manic but is definitely with psychotic symptoms. Will provisionally change diagnosis to schizoaffective disorder 07/09 little better today with increased dose of perphenazine which patient has been taking. She denies medication side effects and agrees that medications are helpful Still odd but less so and seems to be more organized. Still with limited insight but reports she is feeling better and more like herself though can not specifically articulate why. Patient said she had a good talk with her daughter which was helpful; also talked with the telling him she wants to separate which she said was a long time coming -seems that perphenazine is helping; will continue 07/10 Patient agitated on the unit today and yelling in the hallway. [employer]er discussed this with patient who expresses concern about her being with her children. pt says she gave him bad news about their marriage and is worried about his mental state. She says he has had hallucinated/paranoid delusions about their son, a few years ago. Today, she can not say what he did or said that worried her...other than vague references to his composure...reactions...like he's not in touch with reality... But with no specifics...She agrees perhaps he could just be anxious... She also says she believes he has been unmedicated for a long time She then told her automobile and property underwriter that Juan Miguel [son] talks in code to me, like I asked 'what are you wearing to school today...' and he said 'my pink Allan shirt tomorrow...' but he does not have a pink allan shirt, which means he's talking to me in code... She said this exchange happened the week prior to this admission and that he is talking in code her so his father will not know. Patient then showed automobile and property underwriter a picture her son made which her brought in for her during this visit; she insisted him doing so was manipulative though automobile and property underwriter could not understand why; patient showed automobile and property underwriter a letter her wrote to her which was generally about how he is hoping for her and he wished to get help her. Patient says she thinks it is weird though automobile and property underwriter could not understand why. After this encounter with her , she l called PD for wellness check on son; check was completed and PD informed her that her son is OK. She signed a 3 day notice 07/11 Patient refuse perphenazine, last night and this morning. Patient barely slept and staff reports she was pacing the wetzel throughout the night. On inquiry patient said that the afternoon dose was making her feel tired; regarding the bedtime dose, she said she just does not want to take this medication and wants to try something different in the same category. [employer]er offered haloperidol with which she agreed. Impression: Patient remains with paranoid ideations and no insight into her own illness. She has some hypomanic behaviors; most of her problematic symptoms have been psychosis so have been focusing on antipsychotic however patient may benefit from traditional mood stabilizer; will continue to titrate Lamictal however this may not be adequate. Will hold Lexapro. -if patient willing will also consider increasing Seroquel at bedtime though concern is it would cause daytime sedation and she would refuse it. 07/12 little more organized, angry at her ; does not want Haldol, saying it makes her too sedated and agreed to Clozaril after reviewing risks/side effects -patient says she will retract her 3 day and stay a little longer 07/13 more odd behaviors today, wandering, sometimes hiding in hallway; other times social with peers. Pt witnessed self-dialouging in bedroom. Agrees to titration of clozapine. Agrees to remain on the unit longer for treatment -when patient takes perphenazine or Haldol, odd behaviors seemed to clear up; currently those have been discontinued and she is on low-dose of clozapine which is being titrated 07/14: Patient reports moderate anxiety. Denies depression. Denies paranoia. Denies SI/HI/AVH. Continue current treatment regimen. 07/15/25: Patient is not active engage in 1-1 assessment, walking the wetzel, asking this provider credential she is not legal . can you open the door? . Report to nurse that she find it helpful to distract her self by using headphone. Told nurse that she tries to have a good day. Appear sad, irritable, preoccupied and appear to be psychotic with mood swing, restless. Per nursing, patient slept for 5 hours, compliant with meds. Continue with current plan. 07/16/25: I am upset every morning and am upset now, but I don't want to talk about it. Team reports pt is upset about needing to be on the unit this weekend. Family meeting on 07/19. Pt allowed brief meeting with tw- discussed Clozapine increase by primary provider in preparation for discharge, she agrees and concurs. Team reports pt slept for ~6.5 hours. Described as anxious, guarded and labile Episodic yelling on the unit, after a telephone call with partner. Sat on the floor in the middle of the milieu, asking her primary RN to pick her up. Was able to get off the floor on her own and meet with automobile and property underwriter briefly, however, declined to discuss what was bothering her. Denies SI,HI,AH,VH- I am just pissed, you know? No new medical/diagnostic results. Back pain relieved with Ibuprofen Plan: Clozapine to increase to 100 mg tonight per primary provider. 07/17/25: Meet with patient in exam room. Report that anxiety is very high this morning. Says that she does not want to take PRN but she took it and report feeling better. Report trying to use coping skills such as listening to music, doing some art work and talk to staff and try not to explode . Patient is visible, less irritable and more cooperative, not question regarding this provider's capacity and title. Denies SI/SIB/HI/AVH. Can be labile. No medication changes. Per nursing, slept for 6 hours, compliant with meds. Denies side effects. Continue with current treatment plan. 07/18/25: Patient slept for 6 hours, frustrated being here. Increased anxiety this morning and not happy with her . Patient is the wetzel appear to be suspicious at the end of the wetzel, restless. She denies safety concerns, overwhelmed with coming family meeting, restless. Patient was on the phone with her , got very angry and upset, she started being loud talking about her . Able to redirect to talk to this provider in Group room C. Report that her told her she is not allowed to go home if you talk to me that way . Patient reports that her is not reasonable, not wanting to do family counseling regarding their marriage. She called him to just to talk to him in advance to prepare for tomorrow family meeting but at the end getting triggered by Scott . Patient was tearful, sad and irritable talking about her Patient accepted Ativan 1mg x1 to calm her down with good effects. 07/19 Patient remains with psychotic symptoms and remains guarded. Bizarre movements in the milieu. Today however was the 1st time she shared that she does have auditory hallucinations and will here words that at the moment she thinks are in reference to her, but she will around and see no one talking... she has not quite open to reality testing. Patient continues to have paranoid ideations. She remains quite guarded and mostly says I am just waiting for to all come together when asked further about psychotic symptoms. Patient agrees to increasing clozapine. She reports that she is starting to feel quite depressed which she thinks his partly situational, missing her kids but also just a deeper regular depression and she mentions that she has been off her Wellbutrin and Vyvanse and Lexapro. [employer]er discussed the reasons for this and the concern that restarting these too soon could exacerbate symptoms which she accepts and again agrees to increase clozapine; also agrees to continued Lamictal increase 07/20 Patient now back to mirroring various staff; continues with bizarre movements in hallway. Patient opened up a bit more about her thoughts. Regarding mirroring, she at 1st said it was a joke but then she acknowledged that it is not a joke... She shared that she thinks perhaps this admission is all a set up and that this is not a real hospital unit, that this automobile and property underwriter is not a real doctor and that the staff are all involved in this set up.. She could not explain why such as set up would be occurring and somehow her mirroring Staff is a part of this life. [employer] attempted reality testing and patient was not opposed to it but says she is not sure if she believes that this automobile and property underwriter is a real doctor or that this is a real hospital wings; regarding the unit, she says it looks different, it set a part... It is not new... It is not a part of the hospital. Patient agreed to consider that this police might just be her mind playing tricks on her and automobile and property underwriter reassured her that all of this is in fact real and that she is being treated for in illness. She continues to report AH but remains vague about it. 07/21 remains with paranoid ideations, AH; will continue titrating clozapine 07/24 Impression: Patient remains psychotic with auditory hallucinations and paranoid ideations. While her behaviors themselves (internal preoccupation and self dialoguing; disorganized behaviors) and comments reveal the psychotic process, Up until now she has remained very guarded about sharing them. Patient has little insight, though she remains willing to remain on the unit continue with medication. Patient told automobile and property underwriter she has has a diagnosis of bipolar disorder and was manic/hypomanic for a few months prior to worsening psychotic symptoms (lowering of mood stabilizer and increasing of Vyvanse seemed to be the trigger); she used to be on Seroquel (400-600mg) but found it too sedating and cause significant weight gain and does not want to increase dose (using it for sleep only). While Patient did have some manic behaviors earlier in admission, it seems that the psychotic symptoms are independent of both sukhdeep and depression as they have been ongoing in between mood episodes and so will continue with diagnosis of schizoaffective disorder, bipolar type (but leave it as provisional dx). Patients severe trauma history is certainly contributory to her anxiety and paranoia. Regarding patient's lack of insight, yesterday she called her 11-year-old son and told him the only reason she is in the hospital was because of his father which significantly upset the son. Currently Patient remains too paranoid about her to adequately discuss her own symptoms and why she ended up hospitalized (though she has some sense that she was getting dysregulated). Patient remains fragile and she remain vulnerable to worsening psychosis or return of manic symptoms; she requires continued medication titration. She has significant paranoid ideations about her and has already lost full access to her children via DCF, and can now only see them when supervised; if she were to discharge now, her ongoing symptoms place her at high risk for further DCF intervention. Given her lack of insight, paranoid ideations towards her and paranoid belief that this admission is a set up Patient is at high risk for unsafe behaviors in the community and requires continued inpatient stay for treatment. Regarding medication management, will continue to titrate clozapine since she is tolerating it and it is helpful for both psychosis and bipolar disorder (including bipolar depression). Would like to restart Wellbutrin for depression however will try to get AH under better control 1st; will hold off on Lexapro until mood stabilizing medications are at therapeutic doses so as not to trigger manic episode. 07/22 Patient remains with paranoid ideations and told automobile and property underwriter today that she is fully convinced that she is here on the unit as the focal point of a conspiracy with staff and pretend patients all in on it playing a game at her expense. She said she is feeling tired of playing the game and she just not going to right now. [employer] asked for an example and she said that there was water on the floor which she had to walk around and not get emotionally dysregulated; she explained that the water was purposely but there to test her. [employer] continued to provide education to the contrary that she is being psychiatrically treated on a true psychiatric unit. It is difficult to tell if patient has some insight in that she needs treatment and medication or if she is accepting treatment/medication as part of playing the game... At any rate she agrees to increase Clozaril. She said she is feeling tired in the morning and so automobile and property underwriter agreed to try and see if she could tolerate restarting Wellbutrin. -patient expressing depressed feelings and feeling tired in the morning which make sense as she is off both Wellbutrin and Vyvanse; will restart Wellbutrin to help with daytime tiredness and depression at the risk of exacerbating psychotic symptoms. Starting at a low-dose is minimal risk and automobile and property underwriter considers it worth restarting this medication to avoid patient becoming disinterested in clozapine -retracted 3 day notice 07/23 No change in presentation; patient remains self dialouging. Patient continues to believe the people on the unit are actors part of a set up scheme, pretending to be a psychiatric unit. Patient pointed out different staff that she is unable to tell if they are part of the scheme or not -continue clozapine titration -today started Wellbutrin XL 150 mg since patient complaining of depression and tiredness; hoping that this does not exacerbate psychotic symptoms 07/24/25:Reviewed with team, plan of care reviewed, pt allowed a brief interaction stating she was doing OK and denied current issues or concerns. She is visable in milieu, talkative with select peers, spending a lot of time looking out of the wetzel windows. Team reports she feels we are playing games with her. Approached about this issue-she denied 07/25/25: Team reports pt refused Clozapine last night. Discussed with pt. You know, I woke up feeling like me today. When I take it I feel incoherent, too sedated . Discussed that refusals may increase her in pt time. We agreed to a decrease from 225 to 200 this evening. 07/26 Patient remains fully convinced that this automobile and property underwriter is not a real doctor, the unit does not a real psychiatric unit and that the patients and staff are part of built.iot, designed to somehow play a game with her of which she is the main character. Patient is clear on this with automobile and property underwriter. [employer] again attempted reality testing clearly discussing her illness and treatment for; she does not necessarily disagree but it is difficult to know her level of insight into her own illness. [employer] discussed the the significant concern were she to discharge now and patient agrees to remain on the unit and continue with treatment -over the weekend, she refused clozapine on Saturday; however she said she will continue taking it 07/27 patient refuses Clozaril without much reasoning; agrees to start Vraylar; remains without any insight and with paranoid delusions 07/29 pt reports she's getting used to it here... and volunteers that she believes automobile and property underwriter is a real doctor and that this is a real hospital. She says no med side-effects. Denies AVH. -increasing Lamictal to 200mg -not sure if patients sudden realization that this is a real hospital/admission is authentic or pt saying what she thinks automobile and property underwriter wants to hear 07/30 seems to be little more organized, less guarded and more relaxed. Continue treatment plan 07/31 still internally preoccupied but more open, less guarded. Shared about struggles with relationship with . -will continue with Vraylar 3mg for now before increasing dose 08/01 Patient overall more calm today. She asked automobile and property underwriter some questions about treatment and agreed with medication plan, saying she was feeling overall better. Patient discussed how she has to think this automobile and property underwriter was not a real doctor but has come to realize that this automobile and property underwriter, patient's, the unit are all real and that she was admitted for psychotic symptoms. She thinks perhaps her delusional ideas were largely fueled by her trauma history as well as knowing that her had once been psychiatrically admitted on this same unit. Patient asked for Seroquel to be lowered to 75 mg with which automobile and property underwriter agreed -although still very early on, automobile and property underwriter is cautiously hopeful 08/02 Patient reports feeling overall better. Sad missing her daughter's birthday. Confirms she realizes this admission is real and not an experiment. Acknowledges that she was confused prior to coming to the hospital. Feels that Vraylar is helpful and wants to continue feeling that with it she might not need to be back on Lexapro 08/03 little more odd, internally preoccupied; but acknowledging she struggles with discerning what is real and what is delusional. Agrees to increase in Vraylar -patient is overall improved. Still has some delusional ideas but is better able to challenge them with reality testing. 08/05/25: Discharge Patient remains in overall good behavioral and impulse control; despite intermittent odd behaviors, patient is organized. Likely still with some lingering, intermittent delusional ideations but much less intense and patient is aware of them and challenges them with reality testing. Patient is upset with DCF stipulation that she has to have supervised visits with her kids, feeling it is very unfair but patient is coping with this appropriately. Patient very much wants to discharge home. She is not in imminent risk for harm to self or others and appropriate to return to the community for treatment. Plan cv q15 Increased to Vraylar 4.5 mg Continue Wellbutrin XL 150 mg daily (normally on 300 mg) Lowered to Seroquel 75 at bedtime for sleep (perhaps can eventually get off this and just use clozapine). Continue Lamictal to 200 mg: Continue BuSpar 15 mg twice a day. Continue Clonidine prn HOLD Lexapro 10 mg daily since hypomanic behaviors HOLD Vyvanse DC perphenazine; patient did not want it, saying it made her sedated DC risperidone; patient does not like and patient is improved DC Haldol; said made too sedating DC clozapine 300 mg q.h.s.; patient refuses Reason for continued inpatient stay Substantial Risk for: stable for discharge Time Spent With Patient Time: Total time managing care of this patient today ____ minutes.
--- NOTE | 2025-08-05 09:47 | P.DS_ITS ---
DS: Providers Provider Date of admission: 06/25/25 12:36 Date of discharge: 08/05/25 Primary care physician: None Physician Attending physician on admission: Maxi Puentes Attending physician on discharge: Maxi Puentes DS: Diagnosis Discharge Diagnosis (1) Schizoaffective disorder, bipolar type: Status: Acute (2) Depression: Status: Resolved (3) PTSD (post-traumatic stress disorder): Status: Acute DS: Medications Discharge Medications Home Medications: Home Medications ?Medication ?Instructions ?Recorded ?Confirmed multivitamin 1 tab PO DAILY 06/25/2503/12 oxycodone-acetaminophen 5 mg-325 1 tab PO BID PRN zack re pain 06/25/25 06/25/25 mg tablet Previous Rx's ?Medication ?Instructions ?Recorded cariprazine 4.5 mg capsule 4.5 mg PO DAILY 30 days #30 caps 08/04/25 ascorbic acid (vitamin C) 250 mg 250 mg PO DAILY 30 da ys #30 tabs 08/05/25 tablet bupropion HCl 150 mg 24 hr tablet, 150 mg PO DAILY 30 days #30 tabs 08/05/25 extended release buspirone 15 mg tablet 15 mg PO BID 30 days #60 tab s 08/05/25 clonidine HCl 0.1 mg tablet See Rx Instructions .Route 08/05/25 .COMPLEX PRN moderate anxiety 30 days #90 tabs cyclobenzaprine 10 mg tablet 10 mg PO TID PRN Muscle S pasm 30 08/05/25 days #90 tabs hydroxyzine HCl 25 mg tablet 25 mg PO Q6H PRN mild anx iety 30 08/05/25 days #60 tabs lamotrigine 200 mg tablet 200 mg PO BEDTIME 30 days #3 0 tabs 08/05/25 levothyroxine 75 mcg tablet 75 mcg PO DAILY@0600 30 da ys #30 08/05/25 tabs lorazepam 0.5 mg tablet 0.5 mg PO DAILY PRN severe A nxiety 08/05/25 30 days #30 tabs quetiapine 25 mg tablet 75 mg (3 x 25 mg) PO BEDTIME 30 08/05/25 days #90 tabs Data Data Completed and Pending Completed studies during hospitalization [Text1]: 08/02/25 07:51 Absolute Neuts (auto) 5.4 DS: Summary Hospital Course Hospital Course: HPI: Pt is a 40 year old female who presented to the ED after being dropped off by a friend . Upon arrival to the ED she appeared increasingly paranoid and indicated that she was fearful she was being drugged by her and voiced concern for her and her children's safety. Pt stated that she wanted to have her medications checked as things are just off, my daily routine is off . Pt provided inconsistent information as evidence by conflicting information from what she disclosed to the ED provider upon arrival and at times appears to be a poor historian as a result of her current presentation. She remained guarded at this time and at times appeared to be minimizing symptoms as well as medication seeking as she remained primarily focused on her controlled substances that she is currently prescribed. It is to be noted. Formulation/clinical reasoning: Increasing psychotic behaviors, paranoid, disorganized thought process. Family members have safety concern regarding patient mental status at this current time. Even the above information, patient will be benefit in restrictive environment, medication management, and refer p atient back to outpatient psychiatric services. Hospital course: 06/25/25: Continue with home medications. In my impression, patient may think that she just come here to get refill of her medication and will be sent home. However, other time she also stating that she has not come here for medication change as if she needs a refilled she can get it feel from her OP provider. Ativan 1 mg q.4 hours p.r.n. for severe anxiety. Home dose was only 0.5 b.i.d. p.r.n.. Stimulants: Continue with stimulants, we will monitor if it causing more psychotic behavior. Questioned if patient overused her Adderall information regarding recent weight lost, and be psychotic. 06/26/2025: Continue to encourage medication adherence and engagement. 06/27: accepting medications and requested prazosin 2mg be restarted 06/28 Patient is a limited historian due to disorganized speech and behavior. Throughout interview patient looking off in the distance, sometimes very latent responses, appearing to be internally preoccupied; frequently not finishing sentences, giving cryptic, vague and frequently unrelated responses to discussion questions. Business Solutions Analyst introduces himself has a doctor... Patient then asks are you a Dr.? I am not a doctor. I am Daphne... On inquiry about why patient came to the hospital, she replies, with speech latency and in broken sentences I came... I wanted medications reviewed... And wanted a toxicology... The unknown.... Things got a little unhinged... The court room... Domestic stuff. Patient goes on I was looking for my medications at my house... Interviews, talking, trying to survive all the time... The reality of things is unclear to me... Of the events. Business Solutions Analyst asks for clarification to which patient says, again after significant latency, the court house... I just want my Adrian back... (she later clarifies that the Garrett is a multi tool knife). Patient then started to refer to another patient, saying he wan ts a tape measure... I have one... I can hang out... There is time and things will be revealed... Whenever thing comes together... Family and judges and worldly stuff.. Business Solutions Analyst asks about her earlier concern that her is poisoning her... Patient remained silent for awhile and then says I checked my meds... When I went to talk to them... I would like to see the toxicology... My back was sweating.. I was questioning reality generally... There was a 911 call... She then told proposal lead writer she questioned the reality of this conversation but could not clarify further but then some something about getting her red ticket.. Regarding how she got to the hospital, patient said officers came to my house and talked to my kids...my daughter called them...since i was not feeling safe.. ...i know my very well...it just wasnt a good think going on...i wasn't...no...it got real.....im in survival mode...it started getting scary and dangerous...my was getting a little...red flaggs...it started to be an unsafe situation..he [] was not himself... Patient also said that her best friend Stephanie Holder dropped her off at the hospital; not clear how she got here. Patient gave proposal lead writer permission to talk to Stephanie and also to collect information from her . denies drugs or taking her prescribed medications in excess denies hx manic episodes; yes AH but nothing to be alarmed about... Nurse Note by Karon Arora RN 06/25/25 09:54 - This RN spoke to [facility] regarding the situation that led to being present here in the ER. Per [facility] employee, yesterday there was an argument between the patient and her where both her and her received a crisis consult. Per [facility] employee, patient was originally seen by [facility] and it was determined she could go to respite, however, shortly after, crisis was called back to the home and the patient was sent here to the hospital. When the [facility] employee interviewed the pts 14 year old son, he reports that his mom has been acting really paranoid about things as of recently. (daughter 14yo, Son 11yo) 06/29 Patient remains with psychotic symptoms and said she thinks maybe he[] wants to kill or hurt me... Business Solutions Analyst inquired and patient kept coming back to the fact that he put her home medications in the wrong pill box compartments... and this is what made her think he is trying to kill her... Patient however was willing to entertain that perhaps this might not be true. However, she is significantly more organized today than she was yesterday, talking in full sentences sticking to the topic at hand. She agrees that yesterday she was feeling much more confused she is thinking more clearly today. Patient's father present who has been meeting with her daily since this admission and who agrees that she is significantly better and headed back towards her regular self. Patient agreed to sign a CV and also agreed to have Vyvanse and bupropion discontinued for now; she also agreed to take risperidone which proposal lead writer explained was hopefully just for few days. IMPRESSION: Patient demonstrating psychotic symptoms, auditory hallucinations, paranoid delusions and disorganized speech and behavior; patient is certainly internally preoccupied. So far collateral reports that patient has no history of psychosis or bipolar disorder. After gathering collateral from patient's and father, both deny any history of psychosis or sukhdeep were similar such episodes. Both speculate patient may have abused prescription medications including Vyvanse (and reports may have used crack cocaine) accounting for triggering this episode. Frequently substance induced psychosis resolves within 1-2 days (though can also persist for 2 or more weeks); however patient has remained on both Vyvanse and Wellbutrin which could prolonged symptoms (as both can increase dopamine). Will hold both Vyvanse and Wellbutrin. Also started risperidone low-dose to help with dopamine blockade. 06/30 Patient remains with paranoid ideation; refused Risperdal. On inquiry patient said she does not think she needs it but proposal lead writer continue to educate patient on medication and she said she would start taking it. Patient with some increase disorganized behaviors today, seen self-dialoguing and responding to internal stimuli at 1 point standing aimlessly in hallway, not moving. Slept only 4 hours -hopefully patient will start taking risperidone 07/01 patient remains with intermittent odd and disorganized behaviors, talking to herself in the wetzel; remains with paranoid ideations however is able to be more logical in conversation and for longer periods of time. Patient's sister visiting who gave history that patient started to a peer to be manic about 5 months ago which correlates to increased Vyvanse dose (hyperactive, rapid speech, little sleep-which patient concurred); patient's sister volunteered that she has schizoaffective disorder and has been on medication which was a surprise to patient but with this news was willing to take Risperdal 07/02 patient doing much better. Patient is more organized in both speech and behavior. Patient did take Risperdal twice yesterday but found it made her tired and did not want it anymore. However she agrees it may have been helpful. Patient for the 1st time able to talk much more logically and accurately about history and shares with proposal lead writer that she has been diagnosed with bipolar disorder in the past and was at 1 point on Seroquel around 400 mg and then stabilized on Lamictal 200 mg. Patient said that she had been doing well for so long that her current psychiatric provider agreed to start peeling away her medications and Seroquel was lowered to 100 mg Lamictal tapered down to 50 mg. This taper coincided with patient being started on stimulant medication for ADHD and her Vyvanse was titrated. Patient agrees that it is very possible that the tapering off of Lamictal (she may have been on only Lamictal and not Seroquel for quite awhile) the titration of a stimulant medication is what triggered manic episode which worsened over the past few weeks and included significant paranoid ideations. Patient agrees to get back on Lamictal which caused no side effects. -remains with paranoid ideations about her but they are less intense and patient more open to reality testing; of note patient's does have schizophrenia 07/05 patient continues to be improved, overall organized in speech and behavior able to discuss diagnosis and treatment appropriately 07/06Patient more disorganized doing bizarre, odd hand movements during interview. Patient mimicking/mirroring the hand gestures of whomever is talking; some echolalia as well. Patient remains very vague when discussing her thoughts. Continues to have some paranoid ideations about her however patient's sister does agree that patient's is excessively controlling and for the past 2 years, the sister has noticed that he dictates how long and with whom patient can spend time. Patient struggles to have insight into her behaviors including when they are pointed out in real-time. However she does agree to start perphenazine\ -had discussed risks/side effects of antipsychotics 07/07 Patient denies any medications side effects. Continues to have disorganized in behaviors and now hiding in the corners of the hallway throughout the milieu; continues to mirror movements of others with intermittent echolalia. Remains very vague on what he is thinking and keeps saying she is just waiting for it to all come together. 07/08 Patient Increasingly disorganized; standing in the corner for hours, peering around it into the milieu, not talking. Patient guarded on approach. Initially refused perphenazine but was willing to discuss it with proposal lead writer and patient said she does not feel like herself and hoped that the medication would help repair that. Patient agreed to increasing perphenazine to 4 mg t.i.d. -regarding diagnosis, patient has past diagnosis of bipolar disorder which reportedly was treated with Lamictal and before that Seroquel. Patient is not particularly manic but is definitely with psychotic symptoms. Will provisionally change diagnosis to schizoaffective disorder 07/09 little better today with increased dose of perphenazine which patient has been taking. She denies medication side effects and agrees that medications are helpful Still odd but less so and seems to be more organized. Still with limited insight but reports she is feeling better and more like herself though can not specifically articulate why. Patient said she had a good talk with her daughter which was helpful; also talked with the telling him she wants to separate which she said was a long time coming -seems that perphenazine is helping; will continue 07/10 Patient agitated on the unit today and yelling in the hallway. Business Solutions Analyst discussed this with patient who expresses concern about her being with her children. pt says she gave him bad news about their marriage and is worried about his mental state. She says he has had hallucinated/paranoid delusions about their son, a few years ago. Today, she can not say what he did or said that worried her...other than vague references to his composure...reactions...like he's not in touch with reality... But with no specifics...She agrees perhaps he could just be anxious... She also says she believes he has been unmedicated for a long time She then told her proposal lead writer that Juan Miguel [son] talks in code to me, like I asked 'what are you wearing to school today...' and he said 'my pink Allan shirt tomorrow...' but he does not have a pink allan shirt, which means he's talking to me in code... She said this exchange happened the week prior to this admission and that he is talking in code her so his father will not know. Patient then showed proposal lead writer a picture her son made which her brought in for her during this visit; she insisted him doing so was manipulative though proposal lead writer could not understand why; patient showed proposal lead writer a letter her wrote to her which was generally about how he is hoping for her and he wished to get help her. Patient says she thinks it is weird though proposal lead writer could not understand why. After this encounter with her , she l called PD for wellness check on son; check was completed and PD informed her that her son is OK. She signed a 3 day notice 07/11 Patient refuse perphenazine, last night and this morning. Patient barely slept and staff reports she was pacing the wetzel throughout the night. On inquiry patient said that the afternoon dose was making her feel tired; regarding the bedtime dose, she said she just does not want to take this medication and wants to try something different in the same category. Business Solutions Analyst offered haloperidol with which she agreed. Impression: Patient remains with paranoid ideations and no insight into her own illness. She has some hypomanic behaviors; most of her problematic symptoms have been psychosis so have been focusing on antipsychotic however patient may benefit from traditional mood stabilizer; will continue to titrate Lamictal however this may not be adequate. Will hold Lexapro. -if patient willing will also consider increasing Seroquel at bedtime though concern is it would cause daytime sedation and she would refuse it. 07/12 little more organized, angry at her ; does not want Haldol, saying it makes her too sedated and agreed to Clozaril after reviewing risks/side effects -patient says she will retract her 3 day and stay a little longer 07/13 more odd behaviors today, wandering, sometimes hiding in hallway; other times social with peers. Pt witnessed self-dialouging in bedroom. Agrees to titration of clozapine. Agrees to remain on the unit longer for treatment -when patient takes perphenazine or Haldol, odd behaviors seemed to clear up; currently those have been discontinued and she is on low-dose of clozapine which is being titrated 07/14: Patient reports moderate anxiety. Denies depression. Denies paranoia. Denies SI/HI/AVH. Continue current treatment regimen. 07/15/25: Patient is not active engage in 1-1 assessment, walking the wetzel, asking this provider credential she is not legal . can you open the door? . Report to nurse that she find it helpful to distract her self by using headphone. Told nurse that she tries to have a good day. Appear sad, irritable, preoccupied and appear to be psychotic with mood swing, restless. Per nursing, patient slept for 5 hours, compliant with meds. Continue with current plan. 07/16/25: I am upset every morning and am upset now, but I don't want to talk about it. Team reports pt is upset about needing to be on the unit this weekend. Family meeting on 07/19. Pt allowed brief meeting with tw- discussed Clozapine increase by primary provider in preparation for discharge, she agrees and concurs. Team reports pt slept for ~6.5 hours. Described as anxious, guarded and labile Episodic yelling on the unit, after a telephone call with partner. Sat on the floor in the middle of the milieu, asking her primary RN to pick her up. Was able to get off the floor on her own and meet with proposal lead writer briefly, however, declined to discuss what was bothering her. Denies SI,HI,AH,VH- I am just pissed, you know? No new medical/diagnostic results. Back pain relieved with Ibuprofen Plan: Clozapine to increase to 100 mg tonight per primary provider. 07/17/25: Meet with patient in exam room. Report that anxiety is very high this morning. Says that she does not want to take PRN but she took it and report feeling better. Report trying to use coping skills such as listening to music, doing some art work and talk to staff and try not to explode . Patient is visible, less irritable and more cooperative, not question regarding this provider's capacity and title. Denies SI/SIB/HI/AVH. Can be labile. No medication changes. Per nursing, slept for 6 hours, compliant with meds. Denies side effects. Continue with current treatment plan. 07/18/25: Patient slept for 6 hours, frustrated being here. Increased anxiety this morning and not happy with her . Patient is the wetzel appear to be suspicious at the end of the wetzel, restless. She denies safety concerns, overwhelmed with coming family meeting, restless. Patient was on the phone with her , got very angry and upset, she started being loud talking about her . Able to redirect to talk to this provider in Group room C. Report that her told her she is not allowed to go home if you talk to me that way . Patient reports that her is not reasonable, not wanting to do family counseling regarding their marriage. She called him to just to talk to him in advance to prepare for tomorrow family meeting but at the end getting triggered by Scott . Patient was tearful, sad and irritable talking about her Patient accepted Ativan 1mg x1 to calm her down with good effects. 07/19 Patient remains with psychotic symptoms and remains guarded. Bizarre movements in the milieu. Today however was the 1st time she shared that she does have auditory hallucinations and will here words that at the moment she thinks are in reference to her, but she will around and see no one talking... she has not quite open to reality testing. Patient continues to have paranoid ideations. She remains quite guarded and mostly says I am just waiting for to all come together when asked further about psychotic symptoms. Patient agrees to increasing clozapine. She reports that she is starting to feel quite depressed which she thinks his partly situational, missing her kids but also just a deeper regular depression and she mentions that she has been off her Wellbutrin and Vyvanse and Lexapro. Business Solutions Analyst discussed the reasons for this and the concern that restarting these too soon could exacerbate symptoms which she accepts and again agrees to increase clozapine; also agrees to continued Lamictal increase 07/20 Patient now back to mirroring various staff; continues with bizarre movements in hallway. Patient opened up a bit more about her thoughts. Regarding mirroring, she at 1st said it was a joke but then she acknowledged that it is not a joke... She shared that she thinks perhaps this admission is all a set up and that this is not a real hospital unit, that this proposal lead writer is not a real doctor and that the staff are all involved in this set up.. She could not explain why such as set up would be occurring and somehow her mirroring Staff is a part of this life. Business Solutions Analyst attempted reality testing and patient was not opposed to it but says she is not sure if she believes that this proposal lead writer is a real doctor or that this is a real hospital wings; regarding the unit, she says it looks different, it set a part... It is not new... It is not a part of the hospital. Patient agreed to consider that this police might just be her mind playing tricks on her and proposal lead writer reassured her that all of this is in fact real and that she is being treated for in illness. She continues to report AH but remains vague about it. 07/21 remains with paranoid ideations, AH; will continue titrating clozapine 07/24 Impression: Patient remains psychotic with auditory hallucinations and paranoid ideations. While her behaviors themselves (internal preoccupation and self dialoguing; disorganized behaviors) and comments reveal the psychotic process, Up until now she has remained very guarded about sharing them. Patient has little insight, though she remains willing to remain on the unit continue with medication. Patient told proposal lead writer she has has a diagnosis of bipolar disorder and was manic/hypomanic for a few months prior to worsening psychotic symptoms (lowering of mood stabilizer and increasing of Vyvanse seemed to be the trigger); she used to be on Seroquel (400-600mg) but found it too sedating and cause significant weight gain and does not want to increase dose (using it for sleep only). While Patient did have some manic behaviors earlier in admission, it seems that the psychotic symptoms are independent of both sukhdeep and depression as they have been ongoing in between mood episodes and so will continue with diagnosis of schizoaffective disorder, bipolar type (but leave it as provisional dx). Patients severe trauma history is certainly contributory to her anxiety and paranoia. Regarding patient's lack of insight, yesterday she called her 11-year-old son and told him the only reason she is in the hospital was because of his father which significantly upset the son. Currently Patient remains too paranoid about her to adequately discuss her own symptoms and why she ended up hospitalized (though she has some sense that she was getting dysregulated). Patient remains fragile and she remain vulnerable to worsening psychosis or return of manic symptoms; she requires continued medication titration. She has significant paranoid ideations about her and has already lost full access to her children via DCF, and can now only see them when supervised; if she were to discharge now, her ongoing symptoms place her at high risk for further DCF intervention. Given her lack of insight, paranoid ideations towards her and paranoid belief that this admission is a set up Patient is at high risk for unsafe behaviors in the community and requires continued inpatient stay for treatment. Regarding medication management, will continue to titrate clozapine since she is tolerating it and it is helpful for both psychosis and bipolar disorder (including bipolar depression). Would like to restart Wellbutrin for depression however will try to get AH under better control 1st; will hold off on Lexapro until mood stabilizing medications are at therapeutic doses so as not to trigger manic episode. 07/22 Patient remains with paranoid ideations and told proposal lead writer today that she is fully convinced that she is here on the unit as the focal point of a conspiracy with staff and pretend patients all in on it playing a game at her expense. She said she is feeling tired of playing the game and she just not going to right now. Business Solutions Analyst asked for an example and she said that there was water on the floor which she had to walk around and not get emotionally dysregulated; she explained that the water was purposely but there to test her. Business Solutions Analyst continued to provide education to the contrary that she is being psychiatrically treated on a true psychiatric unit. It is difficult to tell if patient has some insight in that she needs treatment and medication or if she is accepting treatment/medication as part of playing the game... At any rate she agrees to increase Clozaril. She said she is feeling tired in the morning and so proposal lead writer agreed to try and see if she could tolerate restarting Wellbutrin. -patient expressing depressed feelings and feeling tired in the morning which make sense as she is off both Wellbutrin and Vyvanse; will restart Wellbutrin to help with daytime tiredness and depression at the risk of exacerbating psychotic symptoms. Starting at a low-dose is minimal risk and proposal lead writer considers it worth restarting this medication to avoid patient becoming disinterested in clozapine -retracted 3 day notice 07/23 No change in presentation; patient remains self dialouging. Patient continues to believe the people on the unit are actors part of a set up scheme, pretending to be a psychiatric unit. Patient pointed out different staff that she is unable to tell if they are part of the scheme or not -continue clozapine titration -today started Wellbutrin XL 150 mg since patient complaining of depression and tiredness; hoping that this does not exacerbate psychotic symptoms 07/24/25:Reviewed with team, plan of care reviewed, pt allowed a brief interaction stating she was doing OK and denied current issues or concerns. She is visable in milieu, talkative with select peers, spending a lot of time looking out of the wetzel windows. Team reports she feels we are playing games with her. Approached about this issue-she denied 07/25/25: Team reports pt refused Clozapine last night. Discussed with pt. You know, I woke up feeling like me today. When I take it I feel incoherent, too sedated . Discussed that refusals may increase her in pt time. We agreed to a decrease from 225 to 200 this evening. 07/26 Patient remains fully convinced that this proposal lead writer is not a real doctor, the unit does not a real psychiatric unit and that the patients and staff are part of enact, designed to somehow play a game with her of which she is the main character. Patient is clear on this with proposal lead writer. Business Solutions Analyst again attempted reality testing clearly discussing her illness and treatment for; she does not necessarily disagree but it is difficult to know her level of insight into her own illness. Business Solutions Analyst discussed the the significant concern were she to discharge now and patient agrees to remain on the unit and continue with treatment -over the weekend, she refused clozapine on Saturday; however she said she will continue taking it 07/27 patient refuses Clozaril without much reasoning; agrees to start Vraylar; remains without any insight and with paranoid delusions 07/29 pt reports she's getting used to it here... and volunteers that she believes proposal lead writer is a real doctor and that this is a real hospital. She says no med side-effects. Denies AVH. -increasing Lamictal to 200mg -not sure if patients sudden realization that this is a real hospital/admission is authentic or pt saying what she thinks proposal lead writer wants to hear 07/30 seems to be little more organized, less guarded and more relaxed. Continue treatment plan 07/31 still internally preoccupied but more open, less guarded. Shared about struggles with relationship with . -will continue with Vraylar 3mg for now before increasing dose 08/01 Patient overall more calm today. She asked proposal lead writer some questions about treatment and agreed with medication plan, saying she was feeling overall better. Patient discussed how she has to think this proposal lead writer was not a real doctor but has come to realize that this proposal lead writer, patient's, the unit are all real and that she was admitted for psychotic symptoms. She thinks perhaps her delusional ideas were largely fueled by her trauma history as well as knowing that her had once been psychiatrically admitted on this same unit. Patient asked for Seroquel to be lowered to 75 mg with which proposal lead writer agreed -although still very early on, proposal lead writer is cautiously hopeful 08/02 Patient reports feeling overall better. Sad missing her daughter's birthday. Confirms she realizes this admission is real and not an experiment. Acknowledges that she was confused prior to coming to the hospital. Feels that Vraylar is helpful and wants to continue feeling that with it she might not need to be back on Lexapro 08/03 little more odd, internally preoccupied; but acknowledging she struggles with discerning what is real and what is delusional. Agrees to increase in Vraylar -patient is overall improved. Still has some delusional ideas but is better able to challenge them with reality testing. 08/05/25: Discharge Patient remains in overall good behavioral and impulse control; despite intermittent odd behaviors, patient is organized. Likely still with some lingering, intermittent delusional ideations but much less intense and patient is aware of them and challenges them with reality testing. Patient is upset with DCF stipulation that she has to have supervised visits with her kids, feeling it is very unfair but patient is coping with this appropriately. Patient very much wants to discharge home. She is not in imminent risk for harm to self or others and appropriate to return to the community for treatment. Plan cv q15 Increased to Vraylar 4.5 mg Continue Wellbutrin XL 150 mg daily (normally on 300 mg) Lowered to Seroquel 75 at bedtime for sleep (perhaps can eventually get off this and just use clozapine). Continue Lamictal to 200 mg: Continue BuSpar 15 mg twice a day. Continue Clonidine prn HOLD Lexapro 10 mg daily since hypomanic behaviors HOLD Vyvanse DC perphenazine; patient did not want it, saying it made her sedated DC risperidone; patient does not like and patient is improved DC Haldol; said made too sedating DC clozapine 300 mg q.h.s.; patient refuses Time Spent with Patient Time attestation: Total time managing care of this patient today ____ minutes. Discharge Plan Discharge Anticipated Discharge Date/Time: 08/05/25 11:52 Patient Disposition: Home, Self-Care Discharge Diagnosis: Schizoaffective disorder, bipolar type Referrals: [facility] [Other] - 1 Week Referral Note: *Your DCF worker has been updated as to your discharge plan. [facility] OTR [Other] - 08/24/25 11:20 am Referral Note: Follow up medication management appointment [facility] O[facility] [Other] - 08/09/25 10:00 am Referral Note: Follow up Intake/Therapy appointment [facility] [Other] - 08/09/25 9:30 am Referral Note: Follow up hospital discharge appointment [facility] [Other] - 08/06/25 11:00 am Referral Note: *You have been accepted to participate in this 2 week, intense and structured program, designed to enhance self awareness and quality of life. PHP is offered M-F from 9 am-2:30pm. Once you complete the intake on 07/27/25 you will start the program the following day. Rio Alicea MD [Physician, Medical] - 1 Week Referral Note: OFFICE WILL CALL PT. WITH F/U APPOINTMENT WITHIN 3-5 BUSINESS DAYS . Discharge Medications: New cariprazine 4.5 mg capsule 4.5 mg PO DAILY 30 Days Qty: 30 0RF cyclobenzaprine 10 mg Tablet 10 mg PO TID PRN (Reason: Muscle Spasm) 30 Days Qty: 90 0RF clonidine HCl 0.1 mg Tablet See Rx Instructions .ROUTE .COMPLEX PRN (Reason: moderate anxiety) 30 Days Qty: 90 0RF Protocol: Hold for SBP< HOLD for SBP < : 90 Rx Instructions: take 2 tabs at bedtime; may take additional tab daily as needed for anxiety bupropion HCl 150 mg Tablet Extended Release 24 Hr 150 mg PO DAILY 30 Days Qty: 30 0RF hydroxyzine HCl 25 mg Tablet 25 mg PO Q6H PRN (Reason: mild anxiety) 30 Days Qty: 60 0RF quetiapine 25 mg Tablet 75 mg PO BEDTIME 30 Days Qty: 90 0RF ascorbic acid (vitamin C) 250 mg Tablet 250 mg PO DAILY 30 Days Qty: 30 0RF Continued multivitamin Tablet 1 tab PO DAILY oxycodone-acetaminophen 5-325 mg tablet 1 tab PO BID PRN (Reason: severe pain) levothyroxine 75 mcg tablet 75 mcg PO DAILY@0600 30 Days Qty: 30 0RF buspirone 15 mg tablet 15 mg PO BID 30 Days Qty: 60 0RF Changed lamotrigine 200 mg tablet 200 mg PO BEDTIME 30 Days Qty: 30 0RF lorazepam 0.5 mg tablet 0.5 mg PO DAILY PRN (Reason: severe Anxiety) 30 Days Qty: 30 0RF Discontinued quetiapine 100 mg tablet 100 mg PO BEDTIME dextroamphetamine-amphetamine 5 mg tablet 1 tab PO DAILY escitalopram oxalate 10 mg tablet 10 mg PO DAILY bupropion HCl 300 mg tablet extended release 24 hr 300 mg PO QAM lisdexamfetamine 70 mg capsule 70 mg PO DAILY Discharge Orders: Discharge Order (Routine); Ordered 08/05/25 Ordered By: Maxi Puentes Diet: Regular diet Activity on Discharge: As tolerated Stand Alone Forms: Patient Portal Discharge page, Community Support Print Language: [place] Care Plan Goals: Maintain mood and safe behaviors Take medications as prescribed Practice coping skills Continue with outpatient providers and reach out to them as needed Health Concerns: Mood stability and behaviors Hypothyroid chronic back pain Plan of Treatment: Follow up with your PCP, psychiatric provider and other outpatient providers regarding above concerns Take medications as prescribed Assessment: Risk assessment at time of discharge:? Patient was interviewed prior to discharge and found to be fully oriented and without any SI or HI. Patient has improved insight and judgment and wants to continue treatment. Patient is not in imminent risk of harm to self or others and has a safety plan that includes presenting to the closest ER or calling 911 if feeling unsafe.? Patient has been observed closely by nursing and unit staff throughout admission; patient has not engaged in any behaviors that suggest dangerousness to self or others and has demonstrated appropriate behaviors and impulse control Discharge Date/Time: 08/05/25 11:39
== END 2025-08-05 11:39 | disposition home or self-care (01) | DRG 885 ==
LOC: HO.ED 20:21 → HO.PM5 06-25 12:42
PROVIDERS: Nurse Practitioner Family; Physician Assistant Medical; Admitting Provider Clinical Nurse Specialist Psychiatric/Mental Health, Adult; Emergency Provider Emergency Medicine; Visit Provider Psychiatry & Neurology Psychiatry
DX: F25.0 Schizoaffective disorder, bipolar type (principal); F43.10 Post-traumatic stress disorder, unspecified; F32.A Depression, unspecified; F14.90 Cocaine use, unspecified, uncomplicated; Z20.822 Contact with and (suspected) exposure to COVID-19; Z79.890 Hormone replacement therapy; Z79.899 Other long term (current) drug therapy
CPT/HCPCS: 36415; 80053; 80061; 80143; 80179; 80307; 81001; 81025; 82607; 82746; 83036; 83735; 84439; 84443; 85025; 85048; 86780; 87635; 93005; 99285; J2250; J2359; S9485

== ENCOUNTER → 2025-06-25 08:22 | Outpatient (BNV) | payer OTHER, SELFPAY | PROVIDERS: Admitting Provider Clinical Nurse Specialist Psychiatric/Mental Health, Adult; Emergency Provider Emergency Medicine; Visit Provider Internal Medicine Cardiovascular Disease | DX: Z13.6 Encounter for screening for cardiovascular disorders (principal) | CPT/HCPCS: 93010 ==

== ENCOUNTER 2025-06-25 12:36 | Outpatient (BNV) | payer OTHER, SELFPAY | END 2025-07-12 14:57 | PROVIDERS: Admitting Provider Clinical Nurse Specialist Psychiatric/Mental Health, Adult; Emergency Provider Emergency Medicine; Visit Provider Internal Medicine Cardiovascular Disease | DX: Z13.6 Encounter for screening for cardiovascular disorders (principal) | CPT/HCPCS: 93010 ==

== ENCOUNTER → 2025-06-25 12:36 | Outpatient (BNV) | payer OTHER, SELFPAY | PROVIDERS: Admitting Provider Clinical Nurse Specialist Psychiatric/Mental Health, Adult; Emergency Provider Emergency Medicine; Visit Provider Nurse Practitioner Family | DX: F22 Delusional disorders (principal) | CPT/HCPCS: 99221 ==

== ENCOUNTER → 2025-06-25 12:36 | Outpatient (BNV) | payer OTHER, SELFPAY | PROVIDERS: Admitting Provider Clinical Nurse Specialist Psychiatric/Mental Health, Adult; Emergency Provider Emergency Medicine; Visit Provider Psychiatry & Neurology Psychiatry | DX: F23 Brief psychotic disorder (principal); F32.A Depression, unspecified | CPT/HCPCS: 99232 ==